=== PATIENT | female | born 1960 | race Caucasian/White ===

== ENCOUNTER → 2017-06-27 | Outpatient (CLI) | payer BC ==
--- NOTE | 2017-06-27 12:25 | XR ---
EXAMINATION TYPE: XR chest 2V DATE OF EXAM: 06/27/2017 COMPARISON: NONE HISTORY: Shortness of breath TECHNIQUE: Frontal and lateral views of the chest are obtained. FINDINGS: Scattered senescent parenchymal changes noted. Hyperinflation compatible with COPD. No evidence for infiltrate. No evidence for atelectasis. Heart size is stable. Mediastinal structures are stable and grossly unremarkable. No evidence for hilar prominence. Degenerative changes dorsal spine. IMPRESSION: 1. No evidence for acute pulmonary disease.
--- NOTE | 2017-06-27 12:27 | XR ---
EXAMINATION TYPE: XR sinus DATE OF EXAM: 06/27/2017 CLINICAL HISTORY: pain Four views of the paranasal sinuses are submitted. Paranasal sinuses demonstrate normal aeration and development. No air-fluid levels are seen. There is no evidence for mucosal thickening. Nasal sep niurka is midline. No evidence for bony destructive process. IMPRESSION: Unremarkable evaluation of the paranasal sinuses.
== END | disposition home or self-care (01) ==
LOC: RADXRMAIN 11:39
PROVIDERS: ATTEND Internal Medicine
DX: J06.9 Acute upper respiratory infection, unspecified (principal)
CPT/HCPCS: 70220; 71046

== ENCOUNTER 2019-05-04 10:03 | Emergency (ER) | payer BC ==
[2019-05-04 10:09] VITALS: BP 137/66; PULSE 86; RESP 16; TEMP 98.4
--- NOTE | 2019-05-04 10:32 | ED ---
General Adult HPI - General Chief complaint: Allergic Reaction Stated complaint: Rash all over Time Seen by Provider: 05/04/19 10:10 Source: patient, RN notes reviewed Mode of arrival: ambulatory Limitations: no limitations - History of Present Illness Initial comments: 58-year-old female with a past medical history of anemia presents to the emergency department for a chief complaint of rash. Patient states that she has had a rash for the past 3-4 days. States this started on her bilateral arms and legs and then spread to her whole body. States that she saw her primary care provider on Tuesday who thought she was probably having an ALLERGIC reaction and gave her an IM injection of steroids. Patient started a Medrol Dosepak yesterday. However today symptoms worsened and she was told to come to the emergency department for evaluation over the phone. Patient had 2 iron transfusions on April 16 and April 23. It was thought that the symptoms were likely secondary to ALLERGIC reaction from the infusions. Patient is currently seeing a load out worker for anemia and leukopenia.Patient has no other complaints at this time including shortness of breath, chest pain, abdominal pain, nausea or vomiting, headache, or visual changes. - Related Data Home Medications Medication Instructions Recorded Confirmed Ascorbic Acid [Vitamin C] 500 mg PO DAILY 04/16/19 04/16/19 Aspirin [Adult Low Dose Aspirin EC] 81 mg PO DAILY 04/16/19 04/16/19 Cholecalciferol (Vitamin D3) 1,000 PO DAILY 04/16/19 [Vitamin D3] Multivitamin [Multivitamins Adult 1 tab PO DAILY 04/16/19 04/16/19 Gummies] Previous Rx's Medication Instructions Recorded hydrOXYzine HCL [Atarax] 25 mg PO TID PRN #20 tab 05/04/19 predniSONE 50 mg PO DAILY #5 tablet 05/04/19 Allergies Allergy/AdvReac Type Severity Reaction Status Date / Time ferumoxytol Allergy Severe Rash/Hives Verified 05/04/19 10:05 Review of Systems ROS Statement: Those systems with pertinent positive or pertinent negative responses have been documented in the HPI. ROS Other: All systems not noted in ROS Statement are negative. Past Medical History Past Medical History: No Reported History Additional Past Medical History / Comment(s): anemia History of Any Multi-Drug Resistant Organisms: None Reported Past Surgical History: No Surgical Hx Reported Past Anesthesia/Blood Transfusion Reactions: No Reported Reaction Past Psychological History: Depression Smoking Status: Current every day smoker Past Alcohol Use History: None Reported Past Drug Use History: None Reported General Exam Limitations: no limitations General appearance: alert, in no apparent distress Head exam: Present: atraumatic, normocephalic, normal inspection Eye exam: Present: normal appearance, PERRL, EOMI. Absent: scleral icterus, conjunctival injection, periorbital swelling ENT exam: Present: normal exam, mucous membranes moist Neck exam: Present: normal inspection, full ROM. Absent: tenderness, meningismus, lymphadenopathy Respiratory exam: Present: normal lung sounds bilaterally. Absent: respiratory distress, wheezes, rales, rhonchi, stridor Cardiovascular Exam: Present: regular rate, normal rhythm, normal heart sounds. Absent: systolic murmur, diastolic murmur, rubs, gallop, clicks Skin exam: Present: rash (Patient has small erythematous nonraised lesions of the arms and legs. These are nonblanching. Patient also has erythematous co alescing patches of the abdomen and back. This area is blanching and appears more hive-like.) Course Vital Signs 05/04/19 10:04 Temperature 98.4 F Pulse Rate 86 Respiratory 16 Rate Blood Pressure 137/66 O2 Sat by Pulse 99 Oximetry Medical Decision Making - Medical Decision Making Patient was evaluated by Dr. Espitia as well. At this time given the raised erythematous causing patches of the abdomen back and arms this is likely hive- like in nature. Negative Nikolsky. No palmar or mucous membrane lesions. However blood work was obtained due to nonblanching lesions of the legs. CBC and CMP here unremarkable. However there is a platelet count of 94. Therefore we did discuss needing repeat blood work in the next few days from primary care to make sure these are not decreasing given the nonblanching lesions of the legs. Patient we treated as an ALLERGIC reaction. She does not have any edema of the lips tongue or throat. No shortness of breath or chest pain. She will be given IV steroids, Benadryl, and Pepcid here in the emergency department. She will stop her Medrol Dosepak and start prednisone instead. She'll be given Atarax as well. - Lab Data Result diagrams: 05/04/19 10:55 05/04/19 10:55 Lab Results 05/04/19 05/04/19 05/04/19 Range/Units 10:55 10:55 10:55 WBC 4.1 (3.8-10.6) k/uL RBC 4.08 (3.80-5.40) m/uL Hgb 11.4 (11.4-16.0) gm/dL Hct 37.0 (34.0-46.0) % MCV 90.5 (80.0-100.0) fL MCH 27.8 (25.0-35.0) pg MCHC 30.7 L (31.0-37.0) g/dL RDW 33.9 H (11.5-15.5) % Plt Count 94 L (150-450) k/uL Neutrophils % (Manual) 37 % Lymphocytes % (Manual) 57 % Eosinophils % (Manual) 6 % Neutrophils # (Manual) 1.52 (1.3-7.7) k/uL Lymphocytes # (Manual) 2.34 (1.0-4.8) k/uL Eosinophils # (Manual) 0.25 (0-0.7) k/uL Nucleated RBCs 0 (0-0) /100 WBC Manual Slide Review Performed Hypochromasia Marked Poikilocytosis Slight Anisocytosis Marked Microcytosis Moderate Macrocytosis Marked A Target Cells Present Stomatocytes Present PT 10.3 (9.0-12.0) sec INR 1.0 (<1.2) APTT 22.6 (22.0-30.0) sec Sodium 140 (137-145) mmol/L Potassium 3.9 (3.5-5.1) mmol/L Chloride 106 (98-107) mmol/L Carbon Dioxide 27 (22-30) mmol/L Anion Gap 7 mmol/L BUN 16 (7-17) mg/dL Creatinine 0.64 (0.52-1.04) mg/dL Est GFR (CKD-EPI)AfAm >90 (>60 ml/min/1.73 sqM) Est GFR (CKD-EPI)NonAf >90 (>60 ml/min/1.73 sqM) Glucose 97 (74-99) mg/dL Calcium 9.6 (8.4-10.2) mg/dL Total Bilirubin 0.4 (0.2-1.3) mg/dL AST 27 (14-36) U/L ALT 24 (9-52) U/L Alkaline Phosphatase 68 (38-126) U/L Total Protein 7.0 (6.3-8.2) g/dL Albumin 4.3 (3.5-5.0) g/dL Disposition Clinical Impression: Allergic reaction, Urticaria Disposition: HOME SELF-CARE Condition: Good Instructions (If sedation given, give patient instructions): Urticaria (ED) Additional Instructions: Please take prednisone starting tomorrow. Please take Atarax as needed for itching but do not drive while taking this. Follow up with primary care in 1-2 days. As discussed, you may need repeat blood work including platelets early next week. Return to the emergency department if you have any worsening symptoms. Prescriptions: hydrOXYzine HCL [Atarax] 25 mg PO TID PRN #20 tab PRN Reason: Itching predniSONE 50 mg PO DAILY #5 tablet Is patient prescribed a controlled substance at d/c from ED?: No Referrals: Todd Baldwin MD [Primary Care Provider] - 1-2 days Time of Disposition: 12:56
[2019-05-04 11:15] LABS: ALT 24 U/L (9-52); AST 27 U/L (14-36); African American GFR (CKD) >90 (>60 ml/min/1.73 sqM); Albumin 4.3 g/dL (3.5-5.0); Alkaline Phosphatase 68 U/L (38-126); Anion Gap 7 mmol/L; Blood Urea Nitrogen 16 mg/dL (7-17); Calcium 9.6 mg/dL (8.4-10.2); Carbon Dioxide 27 mmol/L (22-30); Chloride 106 mmol/L (98-107); Glucose 97 mg/dL (74-99); Non-African American GFR(CKD) >90 (>60 ml/min/1.73 sqM); Potassium 3.9 mmol/L (3.5-5.1); Sodium 140 mmol/L (137-145); Total Bilirubin 0.4 mg/dL (0.2-1.3)
[2019-05-04 11:28] LABS: Anisocytosis Marked; HGB 11.4 gm/dL (11.4-16.0); Hypochromasia Marked; MCH 27.8 pg (25.0-35.0); MCHC 30.7 g/dL (31.0-37.0); MCV 90.5 fL (80.0-100.0); Macrocytosis Marked; Microcytosis Moderate; Poikilocytosis Slight; RBC 4.08 m/uL (3.80-5.40); WBC 4.1 k/uL (3.8-10.6)
[2019-05-04 11:39] LABS: Platelet Count 94 k/uL (150-450); RDW 33.9 % (11.5-15.5)
[2019-05-04 11:43] LABS: Eosinophils # (M) 0.25 k/uL (0-0.7); Lymphocytes # (M) 2.34 k/uL (1.0-4.8); Neutrophils # (M) 1.52 k/uL (1.3-7.7); Neutrophils % (M) 37 %; Nucleated Red Blood Cells 0 /100 WBC (0-0); Stomatocytes Present; Total Cells Counted 100
[2019-05-04 11:44] LABS: Target Cells Present
[2019-05-04 11:50] LABS: Partial Thromboplastin Time 22.6 sec (22.0-30.0); Prothrombin Time 10.3 sec (9.0-12.0)
[2019-05-04] MEDS ORDERED: methylPREDNISolone SOD SUCCI 125 MG/2 ML VIAL IV STA (12:44)
[2019-05-04] MEDS ORDERED: diphenhydrAMINE 50 MG/ML 1 ML VIAL IVP STA (12:44)
[2019-05-04] MEDS ORDERED: FAMOTIDINE 20 MG/2 ML VIAL IV STA (12:44)
== END 2019-05-04 13:52 | disposition home or self-care (01) ==
LOC: EC 10:03
DX: L50.0 Allergic urticaria (principal); D64.9 Anemia, unspecified; D72.819 Decreased white blood cell count, unspecified; F17.200 Nicotine dependence, unspecified, uncomplicated; Z88.8 Allergy status to other drugs, medicaments and biological substances; Z79.82 Long term (current) use of aspirin
CPT/HCPCS: 36415; 80053; 85025; 85610; 85730; 96374; 96375; 99283

== ENCOUNTER → 2020-04-07 | Outpatient (CLI) | payer BC ==
--- NOTE | 2020-04-07 09:31 | XR ---
EXAMINATION TYPE: XR chest 2V DATE OF EXAM: 04/07/2020 COMPARISON: Chest x-ray June 27, 2017. HISTORY: Cough and congestion. TECHNIQUE: Frontal and lateral views of the chest are obtained. FINDINGS: There is no suspicious focal air space opacity, pleural effusion, or pneumothorax seen. T he cardiac silhouette size remains within normal limits. The osseous structures are intact. IMPRESSION: No suspicious acute pulmonary process. No significant change from prior.
--- NOTE | 2020-04-09 10:48 | MM ---
Reason for exam: screening (asymptomatic). Last mammogram was performed 5 years and 6 months ago. History: Patient is postmenopausal and is nulliparous. Physical Findings: A clinical breast exam by your physician is recommended on an annual basis and results should be correlated with mammographic findings. MG Screening Mammo w CAD Bilateral CC and MLO view(s) were taken. Prior study comparison: October 14, 2014, bilateral MG screening mammo w CAD. There are scattered fibroglandular densities. Finding: There is a oval lobulated mass in the upper outer quadrant of the right breast. No significant changes in finding since October 14, 2014. ASSESSMENT: Benign, BI-RAD 2 RECOMMENDATION: Routine screening mammogram of both breasts in 1 year.
== END | disposition home or self-care (01) ==
LOC: RADMAMWWP 08:47
PROVIDERS: ATTEND Family Medicine
DX: Z12.31 Encounter for screening mammogram for malignant neoplasm of breast (principal); J06.9 Acute upper respiratory infection, unspecified
CPT/HCPCS: 71046; 77067

== ENCOUNTER → 2020-07-04 | Outpatient (CLI) | payer BC | END | disposition home or self-care (01) | LOC: LABWHC1 16:58 | PROVIDERS: ATTEND Internal Medicine | DX: Z20.822 Contact with and (suspected) exposure to COVID-19 (principal) | CPT/HCPCS: U0003; C9803; U0005 ==

== ENCOUNTER → 2020-07-11 | Outpatient (CLI) | payer BC | END | disposition home or self-care (01) | LOC: LABWHC1 15:27 | PROVIDERS: ATTEND Internal Medicine | DX: Z20.822 Contact with and (suspected) exposure to COVID-19 (principal) | CPT/HCPCS: U0003; C9803 ==

== ENCOUNTER → 2020-08-07 | Outpatient (CLI) | payer BC ==
[2020-08-08 00:22] LABS: Anisocytosis (M) 3+; Basophils # (A) 0.01 X 10*3/uL (0.00-0.10); Basophils % (A) 0.4 %; Eosinophils # (A) 0.23 X 10*3/uL (0.04-0.35); Eosinophils % (A) 9.4 %; HCT 22.7 % (37.2-46.3); HGB 5.8 g/dL (12.0-15.0); Hypochromasia (M) 3+; Lymphocytes # (A) 1.45 X 10*3/uL (0.90-5.00); Lymphocytes % (A) 59.4 %; MCH 18.8 pg (27.0-32.0); MCHC 25.6 g/dL (32.0-37.0); MCV 73.5 fL (80.0-97.0); Microcytosis (M) 3+; Monocytes # (A) 0.11 X 10*3/uL (0.20-1.00); Monocytes % (A) 4.5 %; Neutrophils # (A) 0.62 X 10*3/uL (1.80-7.70); Neutrophils % (A) 25.5 %; Platelet Count 117 X 10*3/uL (140-440); RBC 3.09 X 10*6/uL (4.10-5.20); RDW 26.7 % (11.5-14.5); WBC 2.44 X 10*3/uL (4.50-10.00)
[2020-08-08 01:55] LABS: Erythrocyte Sedimentation Rate 35 mm/Hr (0-30)
[2020-08-08 10:01] LABS: % Iron Saturation 8.26 (12.00-45.00); African American GFR (CKD) 121.1 (60.0-200.0); Albumin 4.4 g/dL (3.80-4.90); Albumin/Globulin Ratio 2.44 (1.60-3.17); Anion Gap 9.7 mmol/L (4.00-12.00); Calcium 9.3 mg/dL (8.7-10.3); Carbon Dioxide 22.3 mmol/L (21.6-31.8); Globulin 1.8 g/dL (1.6-3.3); Non-African American GFR(CKD) 104.5 (60.0-200.0); Potassium 4.2 mmol/L (3.5-5.5); Total Bilirubin 0.4 mg/dL (0.2-1.2); Total Protein 6.2 g/dL (6.2-8.2)
[2020-08-08 10:08] LABS: T4, Free (Free Thyroxine) 1.1 ng/dL (0.80-1.80)
[2020-08-08 10:36] LABS: Ferritin 5.3 ng/mL (10.0-291.0)
== END | disposition home or self-care (01) ==
LOC: LABWHC1 16:10
PROVIDERS: ATTEND Internal Medicine
DX: D64.9 Anemia, unspecified (principal); R06.02 Shortness of breath; R00.0 Tachycardia, unspecified
CPT/HCPCS: 36415; 80053; 82607; 82728; 83540; 83550; 84439; 84443; 85025; 85379; 85652

== ENCOUNTER 2020-08-08 14:30 | Inpatient (IN) | payer BC ==
[2020-08-08 15:46] LABS: INR 0.9 (<1.2); Prothrombin Time 10.2 sec (9.0-12.0)
[2020-08-08 15:50] LABS: Anisocytosis Marked; Basophils % (A) 1 %; Eosinophils # (A) 0.2 k/uL (0-0.7); Eosinophils % (A) 11 %; Hypochromasia Marked; Lymphocytes # (A) 1.1 k/uL (1.0-4.8); Lymphocytes % (A) 57 %; MCH 19.3 pg (25.0-35.0); MCHC 27.3 g/dL (31.0-37.0); MCV 70.6 fL (80.0-100.0); Mean Platelet Volume 8.6; Microcytosis Marked; Monocytes % (A) 1 %; Neutrophils # (A) 0.5 k/uL (1.3-7.7); Neutrophils % (A) 27 %; Platelet Count 110 k/uL (150-450); Poikilocytosis Marked; RBC 3.26 m/uL (3.80-5.40); RDW 24.8 % (11.5-15.5); WBC 1.9 k/uL (3.8-10.6)
[2020-08-08 15:55] LABS: Partial Thromboplastin Time 20.1 sec (22.0-30.0)
[2020-08-08 15:57] LABS: HGB 6.3 gm/dL (11.4-16.0)
[2020-08-08 16:03] LABS: ALT 12 U/L (4-34); AST 21 U/L (14-36); African American GFR (CKD) >90 (>60 ml/min/1.73 sqM); Albumin 4.1 g/dL (3.5-5.0); Alkaline Phosphatase 57 U/L (38-126); Anion Gap 9 mmol/L; Blood Urea Nitrogen 10 mg/dL (7-17); Calcium 9.1 mg/dL (8.4-10.2); Carbon Dioxide 23 mmol/L (22-30); Chloride 102 mmol/L (98-107); Glucose 108 mg/dL (74-99); Non-African American GFR(CKD) >90 (>60 ml/min/1.73 sqM); Sodium 134 mmol/L (137-145); Total Bilirubin 0.4 mg/dL (0.2-1.3); Total Protein 6.7 g/dL (6.3-8.2)
--- NOTE | 2020-08-08 16:08 | ED ---
General Adult HPI - General Chief complaint: Recheck/Abnormal Lab/Rx Stated complaint: abnormal labs Time Seen by Provider: 08/08/20 14:54 Source: patient, RN notes reviewed Mode of arrival: wheelchair Limitations: no limitations - History of Present Illness Initial comments: 60-year-old female sent emergency Department chief complaint of abnormal labs, anemia. Patient states that she's been extremely fatigued, short of breath daily. Patient lab work done yesterday which showed hemoglobin of 5.8. Patient does admit that she's had an anemia in the past. Patient states that she was started with iron infusion but states that she reaction and stopped. Patient denies any melena, hematochezia. Patient denies any weapons of abdominal pain she states she's felt short of breath and very tired even after she sleeps. Patient denies any blood thinners. - Related Data Home Medications Medication Instructions Recorded Confirmed Ascorbic Acid [Vitamin C] 500 mg PO DAILY 04/16/19 04/16/19 Aspirin [Adult Low Dose Aspirin EC] 81 mg PO DAILY 04/16/19 04/16/19 Cholecalciferol (Vitamin D3) 1,000 PO DAILY 04/16/19 [Vitamin D3] Multivitamin [Multivitamins Adult 1 tab PO DAILY 04/16/19 04/16/19 Gummies] Previous Rx's Medication Instructions Recorded hydrOXYzine HCL [Atarax] 25 mg PO TID PRN #20 tab 05/04/19 predniSONE 50 mg PO DAILY #5 tablet 05/04/19 Allergies Allergy/AdvReac Type Severity Reaction Status Date / Time ferumoxytol Allergy Severe Rash/Hives Verified 08/08/20 14:51 Review of Systems ROS Statement: Those systems with pertinent positive or pertinent negative responses have been documented in the HPI. ROS Other: All systems not noted in ROS Statement are negative. Past Medical History Past Medical History: No Reported History Additional Past Medical History / Comment(s): anemia History of Any Multi-Drug Resistant Organisms: None Reported Past Surgical History: No Surgical Hx Reported Past Anesthesia/Blood Transfusion Reactions: No Reported Reaction Past Psychological History: Depression Smoking Status: Current every day smoker Past Alcohol Use History: None Reported Past Drug Use History: None Reported General Exam Limitations: no limitations General appearance: alert, in no apparent distress Head exam: Present: atraumatic, normocephalic, normal inspection Eye exam: Present: PERRL, EOMI. Absent: normal appearance (Pale), scleral icterus, conjunctival injection, periorbital swelling ENT exam: Present: normal exam, normal oropharynx, mucous membranes moist, TM's normal bilaterally Neck exam: Present: normal inspection, full ROM. Absent: tenderness, meningismus, lymphadenopathy Respiratory exam: Present: normal lung sounds bilaterally. Absent: respiratory distress, wheezes, rales, rhonchi, stridor Cardiovascular Exam: Present: normal rhythm, normal heart sounds. Absent: systolic murmur, diastolic murmur, rubs, gallop, clicks GI/Abdominal exam: Present: soft, normal bowel sounds. Absent: distended, tenderness, guarding, rebound, rigid Rectal exam: Present: normal inspection, normal rectal tone, other (Rectal exam performed with RN, minimal stool in the vault) Skin exam: Present: warm, dry, intact, normal color. Absent: rash Course Vital Signs 08/08/20 14:47 Temperature 98.6 F Pulse Rate 116 H Respiratory 22 Rate Blood Pressure 111/61 O2 Sat by Pulse 99 Oximetry EKG Findings - EKG Comments: EKG Findings:: EKG performed at 14:59 sinus tachycardia rate of 112. WA 138 QRS 78 QT/QTC 318/434 Medical Decision Making - Medical Decision Making 60-year-old female presents emergency from for shortness breath weakness anemia. Hemoglobin 6.3. Patient has microcytic anemia may be chronic in nature. Patient will be admitted for further workup including hematology Patient was given 2 units of blood. - Lab Data Result diagrams: 08/08/20 15:10 08/08/20 15:10 Lab Results 08/08/20 08/08/20 08/08/20 Range/Units 15:02 15:10 15:10 WBC 1.9 L (3.8-10.6) k/uL RBC 3.26 L (3.80-5.40) m/uL Hgb 6.3 L* (11.4-16.0) gm/dL Hct 23.0 L (34.0-46.0) % MCV 70.6 L (80.0-100.0) fL MCH 19.3 L (25.0-35.0) pg MCHC 27.3 L (31.0-37.0) g/dL RDW 24.8 H (11.5-15.5) % Plt Count 110 L (150-450) k/uL MPV 8.6 Neutrophils % 27 % Lymphocytes % 57 % Monocytes % 1 % Eosinophils % 11 % Basophils % 1 % Neutrophils # 0.5 L (1.3-7.7) k/uL Lymphocytes # 1.1 (1.0-4.8) k/uL Monocytes # 0.0 (0-1.0) k/uL Eosinophils # 0.2 (0-0.7) k/uL Basophils # 0.0 (0-0.2) k/uL Hypochromasia Marked Poikilocytosis Marked Anisocytosis Marked Microcytosis Marked PT 10.2 (9.0-12.0) sec INR 0.9 (<1.2) APTT 20.1 L (22.0-30.0) sec Sodium (137-145) mmol/L Potassium (3.5-5.1) mmol/L Chloride (98-107) mmol/L Carbon Dioxide (22-30) mmol/L Anion Gap mmol/L BUN (7-17) mg/dL Creatinine (0.52-1.04) mg/dL Est GFR (CKD-EPI)AfAm (>60 ml/min/1.73 sqM) Est GFR (CKD-EPI)NonAf (>60 ml/min/1.73 sqM) Glucose (74-99) mg/dL Calcium (8.4-10.2) mg/dL Total Bilirubin (0.2-1.3) mg/dL AST (14-36) U/L ALT (4-34) U/L Alkaline Phosphatase (38-126) U/L Troponin I (0.000-0.034) ng/mL Total Protein (6.3-8.2) g/dL Albumin (3.5-5.0) g/dL Blood Type Blood Type Confirm A Positive Blood Type Recheck Bld Type Recheck Status Antibody Screen Crossmatch Spec Expiration Date 08/08/20 08/08/20 08/08/20 Range/Units 15:10 15:10 15:10 WBC (3.8-10.6) k/uL RBC (3.80-5.40) m/uL Hgb (11.4-16.0) gm/dL Hct (34.0-46.0) % MCV (80.0-100.0) fL MCH (25.0-35.0) pg MCHC (31.0-37.0) g/dL RDW (11.5-15.5) % Plt Count (150-450) k/uL MPV Neutrophils % % Lymphocytes % % Monocytes % % Eosinophils % % Basophils % % Neutrophils # (1.3-7.7) k/uL Lymphocytes # (1.0-4.8) k/uL Monocytes # (0-1.0) k/uL Eosinophils # (0-0.7) k/uL Basophils # (0-0.2) k/uL Hypochromasia Poikilocytosis Anisocytosis Microcytosis PT (9.0-12.0) sec INR (<1.2) APTT (22.0-30.0) sec Sodium 134 L (137-145) mmol/L Potassium 4.0 (3.5-5.1) mmol/L Chloride 102 (98-107) mmol/L Carbon Dioxide 23 (22-30) mmol/L Anion Gap 9 mmol/L BUN 10 (7-17) mg/dL Creatinine 0.45 L (0.52-1.04) mg/dL Est GFR (CKD-EPI)AfAm >90 (>60 ml/min/1.73 sqM) Est GFR (CKD-EPI)NonAf >90 (>60 ml/min/1.73 sqM) Glucose 108 H (74-99) mg/dL Calcium 9.1 (8.4-10.2) mg/dL Total Bilirubin 0.4 (0.2-1.3) mg/dL AST 21 (14-36) U/L ALT 12 (4-34) U/L Alkaline Phosphatase 57 (38-126) U/L Troponin I <0.012 (0.000-0.034) ng/mL Total Protein 6.7 (6.3-8.2) g/dL Albumin 4.1 (3.5-5.0) g/dL Blood Type A Positive Blood Type Confirm Blood Type Recheck No Previous Record Bld Type Recheck Status CABO Indicated Antibody Screen NEGATIVE Crossmatch See Detail Spec Expiration Date 08/11/20202309 Critical Care Time Critical Care Time: Yes Total Critical Care Time: 35 Critical Care Time: Total 35 minutes of critical care time use initially evaluated you press work history, ordering of labs EKG. Patient's found to be anemic. 2 units of blood were ordered. Patient's case discussed with the admitting physician. Consult to hematology Patient will have repeat H&H. Disposition Clinical Impression: Thrombocytopenia, Leukopenia, Anemia Disposition: ADMITTED IP TO THIS [facility] Condition: Serious Referrals: Caren Watson NPC [Primary Care Provider] - 1-2 days
[2020-08-08 16:47] LABS: Reticulocyte % 4.9 % (0.5-2.0)
[2020-08-08] MEDS ORDERED: ONDANSETRON 4 MG/2 ML VIAL IVP PRN (17:46)
[2020-08-08] MEDS ORDERED: NALOXONE 0.4 MG/ML 1 ML VIAL IV PRN (17:46)
[2020-08-08] MEDS ORDERED: ACETAMINOPHEN TAB 325 MG TAB PO PRN (17:46)
[2020-08-08] MEDS ORDERED: HYDROcodone/APAP 5-325MG 1 EACH TAB PO PRN (18:05)
[2020-08-08] MEDS ORDERED: MELATONIN 3 MG TABLET PO PRN (18:05)
[2020-08-08] MEDS ORDERED: ALPRAZolam 0.25 MG TAB PO PRN (18:05)
[2020-08-08] MEDS ORDERED: NICOTINE POLACRILEX 2 MG GUM BUCCAL PRN (18:05)
[2020-08-08] MEDS ORDERED: bisacodyL 5 MG TABLET.DR PO PRN (18:05)
[2020-08-08] MEDS ORDERED: ALBUTEROL NEBULIZED 2.5 MG/3 ML INHALATION PRN (18:25)
--- NOTE | 2020-08-08 18:34 | P.HPIM ---
History of Present Illness H&P Date: 08/08/20 Chief Complaint: fatigue Patient is a 60-year-old female with a history of prior iron deficiency anemia, tobacco abuse, who presented to the emergency department at the direction of Dr. Ayala. She had blood work completed on 08/07 which resulted today and showed a hemoglobin of 5.8. On arrival to the ER she was tachycardic with heart rate of 116. Laboratory analysis showed pancytopenia with a white blood cell count of 1.9, hemoglobin 6.3, platelets of 110. Her sodium level was 134, glucose 108, troponin was negative. Fecal occult blood negative. One unit of packed red blood cells was ordered. Arrangements were made for admission. Of note on the day prior she completed a TSH which was normal at 0.910, B12 225, Iron 36, ferritin 5.3, percent saturation 6.2 Patient seen and examined at bedside. Progressive shortness of breath since Jun 2019 and especially since last summer, works at [employer] and no longer able to get form car to the front door. Worsening exercise tolerance. Light headed, unable to catch breath and no energy on her last day of work which was Jul 02. SOB worse with exertion, inconsistent wheezing when trying to catch her breath, + cough but chronic and currently smoking 1/4-1/2 PPD down from 1 PPD a year ago. No nausea, no vomiting, no diarrhea. No chest pain. No blood in stools, no melena. no weight loss, Gained 5 pounds, no change in appetite. No night sweats, no fevers at night, no chills. No fainting or passing out. Possible increased hair loss. DX of anemia and was seeing Dr. Pathak. Had to get IV iron transfusion at that time Apr 2019. Had reaction to the second infusion with diffuse hives. She never saw Dr. Pathak again after that reaction. Has not been having consistent blood draws. 08/07/20-Had PFT done with Jamie and COPD gold stage 3, only able to walk around office 3 times due to high heart rate. Told she was anemic and needed to have blood work completed. 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 Temp 99 on second visit and had a repeat COVID done a CXR ordered and pna was present (07/11/20). Also placed on zithromax. Review of Systems Pertinent positives and negatives as discussed in HPI, a complete review of systems was performed and all other systems are negative. Past Medical History Additional Past Medical History / Comment(s): anemia History of Any Multi-Drug Resistant Organisms: None Reported Additional Past Surgical History / Comment(s): tooth extraction Past Anesthesia/Blood Transfusion Reactions: No Reported Reaction Past Psychological History: Depression Smoking Status: Current every day smoker Past Alcohol Use History: None Reported Past Drug Use History: Marijuana - Past Family History Father Additional Family Medical History / Comment(s): unknown, adopted at Mother Additional Family Medical History / Comment(s): unknown, adopted at Medications and Allergies Home Medications Medication Instructions Recorded Confirmed Type Ascorbic Acid [Vitamin C] 500 mg PO DAILY 04/16/19 04/16/19 History Albuterol Inhaler [Ventolin Hfa 2 puff INHALATION RT-Q4H PRN 08/08/20 08/08/20 History Inhaler] Ascorbic Acid/Elderberry Fruit 1 tab PO DAILY 08/08/20 08/08/20 History [Elderberry-Vit C 50-100 mg w] Cholecalciferol [Vitamin D3 (25 25 mcg PO DAILY 08/08/20 08/08/20 History Mcg = 1000 Iu)] Allergies Allergy/AdvReac Type Severity Reaction Status Date / Time ferumoxytol Allergy Severe Rash/Hives Verified 08/08/20 16:59 Physical Exam Osteopathic Statement: *. No significant issues noted on an osteopathic structural exam other than those noted in the History and Physical/Consult. Vitals: Vital Signs Temp Pulse Resp BP Pulse Ox 08/08/20 14:47 98.6 F 116 H 22 111/61 99 Intake and Output 08/08/20 08/08/20 08/08/20 06:59 14:59 22:59 Other: Weight 56.699 kg General: Ill appearing, no distress, appears at stated age Derm: + Pallor, loss of pulmonary increase erythema on bilateral hands, warm, dry Head: atraumatic, normocephalic, symmetric Eyes: EOMI, no lid lag, anicteric sclera, pupils equal round reactive to light, + conjunctival pallor ENT: Nose and ears atraumatic, no thrush, no pharyngeal erythema Neck: No thyromegaly, no cervical lymphadenopathy, trachea midline, supple Mouth: no lip lesion, mucus membranes moist Cardiovascular: S1S2 reg, no murmur, positive posterior tibial pulse bilateral, no edema, capillary refill less than 2 seconds Lungs: clear to ascultation bilateral, no ronchi, no rales, no wheeze, no accessory muscle use Abdominal: soft, nontender to palpation, no guarding, no appreciable organomegaly, normal bowel sounds Ext: no gross muscle atrophy, muscle strength muscle strength 5 out of 5 in all 4 extremities, no contractures Neuro: CN II-XI grossly intact, light touch intact all 4 extremities, finger to nose within normal limits, Psych: Alert, oriented, appropriate affect Results CBC & Chem 7: 08/08/20 15:10 08/08/20 15:10 Labs: Abnormal Lab Results - Last 24 Hours (Table) 08/08/20 08/08/20 08/08/20 Range/Units 15:10 15:10 15:10 WBC 1.9 L (3.8-10.6) k/uL RBC 3.26 L (3.80-5.40) m/uL Hgb 6.3 L* (11.4-16.0) gm/dL Hct 23.0 L (34.0-46.0) % MCV 70.6 L (80.0-100.0) fL MCH 19.3 L (25.0-35.0) pg MCHC 27.3 L (31.0-37.0) g/dL RDW 24.8 H (11.5-15.5) % Plt Count 110 L (150-450) k/uL Neutrophils # 0.5 L (1.3-7.7) k/uL Retic Count (0.5-2.0) % APTT 20.1 L (22.0-30.0) sec Sodium 134 L (137-145) mmol/L Creatinine 0.45 L (0.52-1.04) mg/dL Glucose 108 H (74-99) mg/dL Crossmatch 08/08/20 08/08/20 Range/Units 15:10 15:10 WBC (3.8-10.6) k/uL RBC (3.80-5.40) m/uL Hgb (11.4-16.0) gm/dL Hct (34.0-46.0) % MCV (80.0-100.0) fL MCH (25.0-35.0) pg MCHC (31.0-37.0) g/dL RDW (11.5-15.5) % Plt Count (150-450) k/uL Neutrophils # (1.3-7.7) k/uL Retic Count 4.9 H (0.5-2.0) % APTT (22.0-30.0) sec Sodium (137-145) mmol/L Creatinine (0.52-1.04) mg/dL Glucose (74-99) mg/dL Crossmatch See Detail Thrombosis Risk Factor Assmnt - DVT/VTE Prophylaxis DVT/VTE Prophylaxis: Pharmacologic Prophylaxis ordered Assessment and Plan Assessment: Pancytopenia with leukopenia (neutropenia), anemia, and thrombocytopenia -Symptomatic anemia -Iron studies from 08/07/20 and demonstrated severe iron deficiency anemia with ferritin 5.3, FE 36, TIBC 436, and % sat 8.6 - B12 deficiency08/07/20 225 - SPEP done 01/10/19 with small peak early in the gamma region- may be artifact but immunofixation may be useful. - Retic count 4.9%, calculated reticulocyte index less than 2 consistent with hypoproliferative anemia - Consult Heme/onc - await LDH - Repeat CBC in AM with diff - TSH 08/07/20 0.9 - Consider repeat SPEP Tobacco abuse - cessation - nicotine replacement COPD stage 3, without exacerbation - follow-up with Dr. Ayala in office - prn bronchodilators The patient is admitted with an anticipated greater than 2 midnight stay for evaluation of Symptomatic anemia . Surrogate decision-maker: none CODE STATUS:full DVT prophylaxis: SCDs Anticipated discharge date: 2-[address]: home
[2020-08-08] MEDS: NICOTINE 14MG/24HR PATCH TRANSDERM SCH (20:17)
[2020-08-09 07:39] LABS: Anisocytosis Moderate; HCT 28.2 % (34.0-46.0); HGB 7.6 gm/dL (11.4-16.0); Hypochromasia Marked; MCH 20.4 pg (25.0-35.0); MCV 75.5 fL (80.0-100.0); Mean Platelet Volume 9.1; Microcytosis Marked; Platelet Count 108 k/uL (150-450); Poikilocytosis Marked; RBC 3.74 m/uL (3.80-5.40); RDW 23.2 % (11.5-15.5); WBC 1.9 k/uL (3.8-10.6)
[2020-08-09 07:40] LABS: African American GFR (CKD) >90 (>60 ml/min/1.73 sqM); Anion Gap 3 mmol/L; Blood Urea Nitrogen 11 mg/dL (7-17); Calcium 8.8 mg/dL (8.4-10.2); Carbon Dioxide 26 mmol/L (22-30); Chloride 108 mmol/L (98-107); Glucose 87 mg/dL (74-99); Magnesium 2.1 mg/dL (1.6-2.3); Non-African American GFR(CKD) >90 (>60 ml/min/1.73 sqM); Potassium 4.1 mmol/L (3.5-5.1); Sodium 137 mmol/L (137-145)
[2020-08-09 08:02] LABS: Uric Acid 2.6 mg/dL (3.7-7.4)
[2020-08-09] MEDS: NICOTINE 14MG/24HR PATCH TRANSDERM SCH (09:18)
[2020-08-09] MEDS: CYANOCOBALAMIN 1,000 MCG/ML 1 ML VIAL IM SCH (09:18)
--- NOTE | 2020-08-09 10:34 | P.PN ---
Subjective Progress Note Date: 08/09/20 Principal diagnosis: dyspnea Patient is a 60-year-old female with a history of prior iron deficiency anemia, tobacco abuse, and COPD who presented to the emergency department at the direction of Dr. Ayala. She had blood work completed on 08/07 which resulted today and showed a hemoglobin of 5.8. On arrival to the ER she was tachycardic with heart rate of 116. Laboratory analysis showed pancytopenia with a white blood cell count of 1.9, hemoglobin 6.3, platelets of 110. Her sodium level was 134, glucose 108, troponin was negative. Fecal occult blood negative. One unit of packed red blood cells was ordered. Arrangements were made for admission. Of note on the day prior she completed a TSH which was normal at 0.910, B12 225, Iron 36, ferritin 5.3, percent saturation 6.2. She was started on B12. Her HgB was 7.6 on recheck. Retic index less and 2. LDH elevated and uric acid low. Patient seen and examined at bedside. She reports even after her unit of blood she is still feeling winded today. No chest pain. No nausea or vomiting. General: non toxic, no distress, appears at stated age Derm: + Pale, warm, dry Head: atraumatic, normocephalic, symmetric Eyes: EOMI, no lid lag, anicteric sclera, conjunctival pallor Mouth: no lip lesion, mucus membranes moist Cardiovascular: S1S2 reg, no murmur, positive posterior tibial pulse bilateral, Lungs: CTA bilateral, no rhonchi, no rales , no accessory muscle use Abdominal: soft, nontender to palpation, no guarding, no appreciable organomegaly Ext: no gross muscle atrophy, no edema, no contractures Neuro: CN II-XI grossly intact, no focal neuro deficits Psych: Alert, oriented, appropriate affect Pancytopenia with leukopenia (neutropenia), anemia, and thrombocytopenia - s/p 1 unit pRBC -Symptomatic anemia -Iron studies from 08/07/20 and demonstrated severe iron deficiency anemia with ferritin 5.3, FE 36, TIBC 436, and % sat 8.6 - B12 deficiency08/07/20 225 - SPEP done 01/10/19 with small peak early in the gamma region- may be artifact but immunofixation may be useful. - Retic count 4.9%, calculated reticulocyte index less than 2 consistent with hypoproliferative anemia - Consult Heme/onc - LDH elevated and low uric acid - Repeat CBC in AM with diff - TSH 08/07/20 0.9 - Consider repeat SPEP - discussed that patient will need further work-up as outpatient regarding reason for iron deficiency Dyspnea - no improvement with 1 unit pRBC - Check echo Tobacco abuse - cessation - nicotine replacement COPD stage 3, without exacerbation - follow-up with Dr. Ayala in office - prn bronchodilators CODE STATUS:full DVT prophylaxis: SCDs Anticipated discharge date: 2-[address]: home Objective - Vital Signs Vital signs: Vital Signs Temp 98.6 F 08/09/20 02:30 Pulse 106 H 08/09/20 08:30 Resp 17 08/09/20 08:30 BP 114/64 08/09/20 08:30 Pulse Ox 97 08/09/20 08:30 Intake & Output 08/08/20 08/09/20 08/09/20 18:59 06:59 18:59 Intake Total 0 610 720 Balance 0 610 720 Weight 56.699 kg 56.699 kg Intake: Oral 720 Blood Product 0 310 Rc As-1 Unit 0 310 [id number] Other 300 Rc As-1 Unit 300 [id number] Other: # Voids 1 1 - Labs CBC & Chem 7: 08/09/20 06:14 08/09/20 06:14 Labs: Abnormal Lab Results - Last 24 Hours (Table) 08/08/20 08/08/20 08/08/20 Range/Units 15:10 15:10 15:10 WBC 1.9 L (3.8-10.6) k/uL RBC 3.26 L (3.80-5.40) m/uL Hgb 6.3 L* (11.4-16.0) gm/dL Hct 23.0 L (34.0-46.0) % MCV 70.6 L (80.0-100.0) fL MCH 19.3 L (25.0-35.0) pg MCHC 27.3 L (31.0-37.0) g/dL RDW 24.8 H (11.5-15.5) % Plt Count 110 L (150-450) k/uL Neutrophils # 0.5 L (1.3-7.7) k/uL Retic Count (0.5-2.0) % APTT 20.1 L (22.0-30.0) sec Sodium 134 L (137-145) mmol/L Chloride (98-107) mmol/L Creatinine 0.45 L (0.52-1.04) mg/dL Glucose 108 H (74-99) mg/dL Uric Acid (3.7-7.4) mg/dL Lactate Dehydrogenase (313-618) U/L Crossmatch 08/08/20 08/08/20 08/08/20 Range/Units 15:10 15:10 15:10 WBC (3.8-10.6) k/uL RBC (3.80-5.40) m/uL Hgb (11.4-16.0) gm/dL Hct (34.0-46.0) % MCV (80.0-100.0) fL MCH (25.0-35.0) pg MCHC (31.0-37.0) g/dL RDW (11.5-15.5) % Plt Count (150-450) k/uL Neutrophils # (1.3-7.7) k/uL Retic Count 4.9 H (0.5-2.0) % APTT (22.0-30.0) sec Sodium (137-145) mmol/L Chloride (98-107) mmol/L Creatinine (0.52-1.04) mg/dL Glucose (74-99) mg/dL Uric Acid 2.6 L (3.7-7.4) mg/dL Lactate Dehydrogenase 650 H (313-618) U/L Crossmatch See Detail 08/09/20 08/09/20 Range/Units 06:14 06:14 WBC 1.9 L (3.8-10.6) k/uL RBC 3.74 L (3.80-5.40) m/uL Hgb 7.6 L (11.4-16.0) gm/dL Hct 28.2 L (34.0-46.0) % MCV 75.5 L (80.0-100.0) fL MCH 20.4 L (25.0-35.0) pg MCHC 27.0 L (31.0-37.0) g/dL RDW 23.2 H (11.5-15.5) % Plt Count 108 L (150-450) k/uL Neutrophils # (1.3-7.7) k/uL Retic Count (0.5-2.0) % APTT (22.0-30.0) sec Sodium (137-145) mmol/L Chloride 108 H (98-107) mmol/L Creatinine (0.52-1.04) mg/dL Glucose (74-99) mg/dL Uric Acid (3.7-7.4) mg/dL Lactate Dehydrogenase (313-618) U/L Crossmatch
[2020-08-09 11:03] LABS: Neutrophils % (M) 21 %
[2020-08-09 11:04] LABS: Band Neutrophils % 1 %; Eosinophils # (M) 0.11 k/uL (0-0.7); Lymphocytes # (M) 1.31 k/uL (1.0-4.8); Monocytes # (M) 0.06 k/uL (0-1.0)
[2020-08-09 11:07] LABS: Nucleated Red Blood Cells 1 /100 WBC (0-0); Total Cells Counted 100
[2020-08-09 11:13] LABS: RBC Fragments Present
[2020-08-09 15:18] LABS: Reticulocyte % 3.3 % (0.5-2.0)
--- NOTE | 2020-08-09 18:00 | ECHOF ---
Referral Reason:shortness of breath, today please MEASUREMENTS -------- HEIGHT: 157.5 cm WEIGHT: 56.7 kg BP: RVIDd: 2.0 cm (< 3.3) IVSd: 1.0 cm (0.6 - 1.1) LVIDd: 3.9 cm (3.9 - 5.3) LVPWd: 1.1 cm (0.6 - 1.1) IVSs: 1.8 cm LVIDs: 1.5 cm LVPWs: 1.3 cm Ao Diam: 3.1 cm (2.0 - 3.7) AV Cusp: 1.9 cm (1.5 - 2.6) LA Diam: 3.0 cm (2.7 - 3.8) MV EXCURSION: 20.499 mm (> 18.000) MV EF SLOPE: 85 mm/s (70 - 150) EPSS: 0.4 cm MV E Dani: 0.61 m/s MV DecT: 174 ms MV A Dani: 0.56 m/s MV E/A Ratio: 1.10 RAP: 5.00 mmHg RVSP: 9.86 mmHg FINDINGS -------- This was a technically difficult study with suboptimal views. The left ventricular size is normal. Left ventricular wall thickness is normal. Overall left vent ricular systolic function is low-normal with, an EF between 50 - 55 %. The right ventricle is normal in size. The left atrial size is normal. The right atrial size is normal. 5.0mg of Lumason was utilized for enhancement of images The aortic valve is trileaflet and appears structurally normal. The mitral valve is normal. There is trace mitral regurgitation. The tricuspid valve appears structurally normal. Trace tricuspid regurgitation present. Right bowen tricular systolic pressure is normal at < 35 mmHg. There is no pulmonic regurgitation present. The aortic root size is normal. Normal inferior vena cava with normal inspiratory collapse consistent with estimated right atrial pre ssure of 5 mmHg. There is no pericardial effusion. CONCLUSIONS -------- 1. The left ventricular size is normal. 2. Left ventricular wall thickness is normal. 3. Overall left ventricular systolic function is low-normal with, an EF between 50 - 55 %. 4. There is trace mitral regurgitation. 5. Trace tricuspid regurgitation present. 6. There is no pericardial effusion. POLL WATCHER: Sumi Hernández RDCS
[2020-08-09 19:51] VITALS: RESP 18
--- NOTE | 2020-08-09 20:14 | P.CONS ---
History of Present Illness - Reason for Consult Consult date: 08/09/20 Severe microcytic anemia, pancytopenia - History of Present Illness The patient is 60-year-old white female, previously seen by Dr. Pathak, in late 2018. She had been referred for pancytopenia with borderline hemoglobin, platelets are borderline normal to 1:30/140, and W BC in the 3-4000 range, with ANC specifically low, in the 900-1000 range. The patient's initial lab work was essentially negative, including testing for paraproteinemia. She had given a history of heavy alcohol use, of about 12 beers a day, but she had quit about 10 years prior. It is felt that this pancytopenia likely represented chronic bone marrow decompensation due to the same. During her evaluation the patient did develop iron deficiency anemia for which she received IV iron in 03/24. She did not follow up in the office subsequently. Patient had had a CT scan done at [facility] in 2016 that did not mention any specific abnormality in the liver. MRI of the liver was being planned by our office, but the patient, as stated did not follow up. The patient was now admitted with markedly low hemoglobin in the 5-6 range. On admission she was also complaining of progressive fatigue, and some palpitations and was found to be tachycardic. Current CBC showed hemoglobin of 6.3, with MCV the 70 range. W BC was 1.9 and platelets in the low 100 range. Consult was therefore placed for further evaluation and recommendations. Pt does report some black stools off and on. She denies any major change in bowel habits, difficulty swallowing or abdominal pain however. Review of Systems Constitutional: Reports fatigue, Reports weakness Eyes: denies blurred vision, denies pain Ears: deny: decreased hearing, ear discharge, earache, tinnitus Ears, nose, mouth and throat: Denies headache, Denies sore throat Cardiovascular: Reports dyspnea on exertion, Reports lightheadedness, Reports palpitations Respiratory: Reports dyspnea Gastrointestinal: Denies abdominal pain, Denies diarrhea, Denies nausea, Denies vomiting Genitourinary: Denies dysuria, Denies hematuria Menstruation: Reports postmenopausal Musculoskeletal: Reports muscle weakness Integumentary: Denies pruritus, Denies rash Neurological: Reports weakness Psychiatric: Reports as per HPI Endocrine: Denies fatigue, Denies weight change Hematologic/Lymphatic: Reports as per HPI Past Medical History Past Medical History: No Reported History Additional Past Medical History / Comment(s): anemia History of Any Multi-Drug Resistant Organisms: None Reported Past Surgical History: No Surgical Hx Reported Additional Past Surgical History / Comment(s): tooth extraction Past Anesthesia/Blood Transfusion Reactions: No Reported Reaction Past Psychological History: Depression Smoking Status: Current every day smoker Past Alcohol Use History: None Reported Past Drug Use History: Marijuana Additional Drug Use History / Comment(s): smokes 5-6 cigs/day - Past Family History Father History Unknown: Yes Additional Family Medical History / Comment(s): unknown, adopted at Mother History Unknown: Yes Additional Family Medical History / Comment(s): unknown, adopted at Medications and Allergies Home Medications Medication Instructions Recorded Confirmed Type Ascorbic Acid [Vitamin C] 500 mg PO DAILY 04/16/19 08/08/20 History Albuterol Inhaler [Ventolin Hfa 2 puff INHALATION RT-Q4H PRN 08/08/20 08/08/20 History Inhaler] Ascorbic Acid/Elderberry Fruit 1 tab PO DAILY 08/08/20 08/08/20 History [Elderberry-Vit C 50-100 mg Chw] Cholecalciferol [Vitamin D3 (25 25 mcg PO DAILY 08/08/20 08/08/20 History Mcg = 1000 Iu)] Allergies Allergy/AdvReac Type Severity Reaction Status Date / Time ferumoxytol Allergy Severe Rash/Hives Verified 08/08/20 16:59 Physical Exam Vitals: Vital Signs Temp Pulse Pulse Resp BP BP Pulse Ox 08/09/20 08:30 106 H 17 114/64 97 08/09/20 02:30 98.6 F 110 H 22 151/70 98 08/09/20 02:00 22 08/08/20 23:37 97.6 F 85 20 125/70 96 08/08/20 21:00 98.0 F 96 20 124/80 98 08/08/20 19:41 98.9 F 106 H 15 129/77 98 08/08/20 17:53 99.0 F 105 H 18 122/75 08/08/20 17:23 98.9 F 111 H 20 135/73 08/08/20 17:13 99.4 F 108 H 20 125/74 08/08/20 17:11 99.5 F 110 H 18 125/67 08/08/20 15:00 105 H 20 08/08/20 14:47 98.6 F 116 H 22 111/61 99 Intake and Output 08/08/20 08/09/20 08/09/20 22:59 06:59 14:59 Intake Total 610 720 Balance 610 720 Intake: Oral 720 Blood Product 310 Rc As-1 Unit 310 [id number] Other 300 Rc As-1 Unit 300 [id number] Other: # Voids 1 1 Weight 56.699 kg - Constitutional General appearance: no acute distress - EENT Eyes: EOMI, PERRLA ENT: hearing grossly normal, normal oropharynx - Neck Neck: no lymphadenopathy Thyroid: bilateral: normal size - Respiratory Respiratory: bilateral: CTA - Cardiovascular Rhythm: regular Heart sounds: normal: S1, S2 - Gastrointestinal General gastrointestinal: normal bowel sounds, soft - Integumentary Integumentary: normal - Neurologic Neurologic: CNII-XII intact - Musculoskeletal Musculoskeletal: generalized weakness, strength equal bilaterally - Psychiatric Psychiatric: A&O x's 3, appropriate affect Results CBC & Chem 7: 08/09/20 06:14 08/09/20 06:14 Labs: Abnormal Lab Results - Last 24 Hours (Table) 08/08/20 08/08/20 08/08/20 Range/Units 15:10 15:10 15:10 WBC 1.9 L (3.8-10.6) k/uL RBC 3.26 L (3.80-5.40) m/uL Hgb 6.3 L* (11.4-16.0) gm/dL Hct 23.0 L (34.0-46.0) % MCV 70.6 L (80.0-100.0) fL MCH 19.3 L (25.0-35.0) pg MCHC 27.3 L (31.0-37.0) g/dL RDW 24.8 H (11.5-15.5) % Plt Count 110 L (150-450) k/uL Neutrophils # 0.5 L (1.3-7.7) k/uL Retic Count (0.5-2.0) % APTT 20.1 L (22.0-30.0) sec Sodium 134 L (137-145) mmol/L Chloride (98-107) mmol/L Creatinine 0.45 L (0.52-1.04) mg/dL Glucose 108 H (74-99) mg/dL Uric Acid (3.7-7.4) mg/dL Lactate Dehydrogenase (313-618) U/L Crossmatch 08/08/20 08/08/20 08/08/20 Range/Units 15:10 15:10 15:10 WBC (3.8-10.6) k/uL RBC (3.80-5.40) m/uL Hgb (11.4-16.0) gm/dL Hct (34.0-46.0) % MCV (80.0-100.0) fL MCH (25.0-35.0) pg MCHC (31.0-37.0) g/dL RDW (11.5-15.5) % Plt Count (150-450) k/uL Neutrophils # (1.3-7.7) k/uL Retic Count 4.9 H (0.5-2.0) % APTT (22.0-30.0) sec Sodium (137-145) mmol/L Chloride (98-107) mmol/L Creatinine (0.52-1.04) mg/dL Glucose (74-99) mg/dL Uric Acid 2.6 L (3.7-7.4) mg/dL Lactate Dehydrogenase 650 H (313-618) U/L Crossmatch See Detail 08/09/20 08/09/20 Range/Units 06:14 06:14 WBC 1.9 L (3.8-10.6) k/uL RBC 3.74 L (3.80-5.40) m/uL Hgb 7.6 L (11.4-16.0) gm/dL Hct 28.2 L (34.0-46.0) % MCV 75.5 L (80.0-100.0) fL MCH 20.4 L (25.0-35.0) pg MCHC 27.0 L (31.0-37.0) g/dL RDW 23.2 H (11.5-15.5) % Plt Count 108 L (150-450) k/uL Neutrophils # (1.3-7.7) k/uL Retic Count (0.5-2.0) % APTT (22.0-30.0) sec Sodium (137-145) mmol/L Chloride 108 H (98-107) mmol/L Creatinine (0.52-1.04) mg/dL Glucose (74-99) mg/dL Uric Acid (3.7-7.4) mg/dL Lactate Dehydrogenase (313-618) U/L Crossmatch Comments: EKG imaging reviewed Assessment and Plan (1) Anemia Narrative/Plan: The patient was previously seen in our practice in 2019 for pancytopenia. At her initial visit, anemia was borderline, and associated with elevated MCV. As noted, this was felt to be due to alcohol effect. However the patient subsequently developed microcytic anemia with evidence of iron deficiency. She received IV iron previously in 2019, but did not follow up. She had a negative cologard in late 2019. On this admission anemia is most prominent and microcytic. Therefore recurrent iron deficiency is most likely. Iron studies will be ordered. GI workup is recommended if iron deficiency is confirmed. Start iron supplementation if iron deficiency is confirmed. Continue to monitor in the meantime and transfuse to keep hemoglobin greater than 7. Add: Patient's lab just prior to admission show a low ferritin at less than 10. This is quite indicative of iron deficiency even though saturation is in the normal range. Case was discussed in detail with the admitting service. Strongly recommended the patient should have GI workup. While it is possible that she may have some hypoproliferative component at baseline, current drop appears to be due to iron deficiency. Current Visit: Yes Status: Acute Code(s): D64.9 - ANEMIA, UNSPECIFIED SNOMED Code(s): 640054726 (2) Pancytopenia Narrative/Plan: This was also previously present, and attribute it to long-term alcohol effect on the bone marrow. Leukopenia and thrombocytopenia this admission are more prominent, especially the leukopenia. Platelet count are not too different from her baseline. Pancytopenia workup will be repeated, Including imaging of the liver and spleen. A possible differential could include transient decompen sation of a chronically , mildly compromised marrow from prior alcohol use, due to additional stress of progressive iron deficiency anemia. Other causes are not ruled out. - Plt counts are well within a safe range and do not require intervention. - ANC was at 500 with no fever. Therefore at this time this can be followed with observation. Consider growth factor support if ANC remains below 1000, and patient develops any fever. - Further recommendations once workup is resulted. Current Visit: Yes Status: Acute Code(s): D61.818 - OTHER PANCYTOPENIA SNOMED Code(s): 509539462
[2020-08-09 23:13] VITALS: TEMP 98.1
[2020-08-10] MEDS ORDERED: IPRATROPIUM-ALBUTEROL 3 ML NEB INHALATION SCH (08:00)
[2020-08-10] MEDS: NICOTINE 14MG/24HR PATCH TRANSDERM SCH (08:03)
--- NOTE | 2020-08-10 08:10 | US ---
EXAMINATION TYPE: US abdomen limited DATE OF EXAM: 08/10/2020 COMPARISON: NONE CLINICAL HISTORY: Pancytopenia possible hepatosplenomegaly. EXAM MEASUREMENTS: Liver Length: 12.9 cm Gallbladder Wall: 0.2 cm CBD: 0.3 cm Right Kidney: 8.5 x 4.1 x 4.0 cm Spleen: 10.5 cm Pancreas: wnl Liver: Echotexture appears coarse Gallbladder: tiny echogenic focus, appears to be mobile. Evidence for sonographic Wall's sign: No CBD: wnl Right Kidney: No hydronephrosis or masses seen Spleen: wnl IMPRESSION: Probable gallstone, possible underlying hepatocellular disease
[2020-08-10 08:33] LABS: Anisocytosis Moderate; HGB 8.4 gm/dL (11.4-16.0); Hypochromasia Marked; MCHC 27.9 g/dL (31.0-37.0); MCV 75.2 fL (80.0-100.0); Mean Platelet Volume 8.8; Microcytosis Marked; Platelet Count 101 k/uL (150-450); Poikilocytosis Marked; RBC 3.99 m/uL (3.80-5.40); RDW 23.9 % (11.5-15.5)
[2020-08-10 08:42] LABS: ALT 11 U/L (4-34); AST 22 U/L (14-36); African American GFR (CKD) >90 (>60 ml/min/1.73 sqM); Albumin 3.9 g/dL (3.5-5.0); Alkaline Phosphatase 60 U/L (38-126); Anion Gap 6 mmol/L; Blood Urea Nitrogen 13 mg/dL (7-17); Calcium 9.1 mg/dL (8.4-10.2); Carbon Dioxide 25 mmol/L (22-30); Chloride 106 mmol/L (98-107); Glucose 89 mg/dL (74-99); Non-African American GFR(CKD) >90 (>60 ml/min/1.73 sqM); Potassium 4.3 mmol/L (3.5-5.1); Sodium 137 mmol/L (137-145); Total Bilirubin 0.5 mg/dL (0.2-1.3); Total Protein 6.4 g/dL (6.3-8.2)
[2020-08-10] MEDS: CYANOCOBALAMIN 1,000 MCG/ML 1 ML VIAL IM SCH (08:44)
[2020-08-10 08:58] VITALS: BP 125/63
[2020-08-10 09:05] VITALS: PULSE 76
[2020-08-10 10:01] LABS: Band Neutrophils % 1 %; Eosinophils # (M) 0.26 k/uL (0-0.7); Lymphocytes # (M) 1.22 k/uL (1.0-4.8); Monocytes # (M) 0.04 k/uL (0-1.0); Neutrophils % (M) 25 %; Nucleated Red Blood Cells 2 /100 WBC (0-0); Total Cells Counted 200
[2020-08-10 10:02] LABS: Polychromasia Present
[2020-08-10 10:07] LABS: RBC Fragments Present; Tear Drop Cells Present
[2020-08-10 10:25] LABS: % Iron Saturation 2.52 (12.00-45.00)
[2020-08-10 10:46] LABS: Protein, Total 6.1 g/dL (6.2-8.2)
--- NOTE | 2020-08-10 13:43 | P.DS ---
Providers Date of admission: 08/08/20 16:22 Expected date of discharge: 08/10/20 Attending physician: Bing Aggarwal DO Consults: 08/08/20 18:06 Consult Physician Routine Consulting Provider: Celio Briceno Consult Reason/Comments: pancytopenia, symptomatic anemia Do you want consulting provider notified?: Yes Primary care physician: RADHAMES Muñoz Hospital Course: Discharge Diagnosis: Pancytopenia Severe iron deficiency Vitamin B12 deficiency COPD stage III Tobacco abuse Hospital Course: Patient is a 60-year-old female with a history of prior iron deficiency anemia, tobacco abuse, and COPD who presented to the emergency department at the direction of Dr. Ayala. She had blood work completed on 08/07 which resulted today and showed a hemoglobin of 5.8. On arrival to the ER she was tachycardic with heart rate of 116. Laboratory analysis showed pancytopenia with a white blood cell count of 1.9, hemoglobin 6.3, platelets of 110. Her sodium level was 134, glucose 108, troponin was negative. Fecal occult blood negative. One unit of packed red blood cells were administered patient was admitted for symptomatic anemia. Of note on the day prior she completed a TSH which was normal at 0.910, B12 225, Iron 36, ferritin 5.3, percent saturation 6.2. She was started on B12. Her HgB was 7.6 on recheck. Retic index less and 2. LDH elevated and uric acid low. She was seen by oncology who started her pancytopenia workup. She was started on IM B12 injections and received 2 prior to discharge. Her hemoglobin continued to improve up to 8.4. Her dyspnea was improved as well. Echocardiogram was checked which revealed a normal ejection fraction of 50-55% and no severe valvular dysfunction. She is determined stable for discharge home with adequate outpatient follow-up. We had several discussions about the need for both an EGD and colonoscopy to rule out continued blood loss. Patient is anxious about this as her from colon cancer, however is agreeable what she seeks with Caren her primary care nurse practitioner. She will also need to follow-up with Dr. Pathak was office and she is in agreement. She will be trialed on oral iron. She was started on Spiriva in addition to her when necessary albuterol for her COPD stage III. I have asked her to focus on following up with her PCP and hematology for the time being as this appears to be somewhat overwhelming for her. She will then need to follow-up with Dr. Dumont within the next few months for further evaluation of her COPD. On follow-up in the office this week I recommend a repeat IM B12 injection as well as a repeat CBC. Patient is aware. Patient seen and examined at bedside. Her breathing is much better. Denies any chest pain, nausea, vomiting. We discussed recommendations as listed above and patient is in agreement. Vital signs reviewed and stable. General: non toxic, no distress, appears at stated age Derm: + Pale warm, dry Head: atraumatic, normocephalic, symmetric Eyes: EOMI, no lid lag, anicteric sclera Mouth: no lip lesion, mucus membranes moist, conjunctival pallor Cardiovascular: S1S2 reg, no murmur, positive posterior tibial pulse bilateral, Lungs: CTA bilateral, no rhonchi, no rales , no accessory muscle use Abdominal: soft, nontender to palpation, no guarding, no appreciable organome max Ext: no gross muscle atrophy, no edema, no contractures Neuro: CN II-XI grossly intact, no focal neuro deficits Psych: Alert, oriented, appropriate affect A total of 35 minutes of time were spent preparing this complex discharge summary . Patient Condition at Discharge: Fair Plan - Discharge Summary Discharge Rx Participant: No New Discharge Prescriptions: New Nicotine Polacrilex [Nicorette] 2 mg BUCCAL Q2HR PRN gum PRN Reason: Nicotine Cravings Ferrous Sulfate [Slow Fe] 142 mg PO DAILY #30 tablet.er Tiotropium [place] [Spiriva] 1 cap INHALATION DAILY #1 inh Continue Ascorbic Acid [Vitamin C] 500 mg PO DAILY Cholecalciferol [Vitamin D3 (25 Mcg = 1000 Iu)] 25 mcg PO DAILY Ascorbic Acid/Elderberry Fruit [Elderberry-Vit C 50-100 mg Chw] 1 tab PO DAILY Albuterol Inhaler [Ventolin Hfa Inhaler] 2 puff INHALATION RT-Q4H PRN PRN Reason: Shortness Of Breath Discharge Medication List Ascorbic Acid [Vitamin C] 500 mg PO DAILY 04/16/19 [History] Albuterol Inhaler [Ventolin Hfa Inhaler] 2 puff INHALATION RT-Q4H PRN 08/08/20 [History] Ascorbic Acid/Elderberry Fruit [Elderberry-Vit C 50-100 mg Chw] 1 tab PO DAILY 08/08/20 [History] Cholecalciferol [Vitamin D3 (25 Mcg = 1000 Iu)] 25 mcg PO DAILY 08/08/20 [Histor y] Ferrous Sulfate [Slow Fe] 142 mg PO DAILY #30 tablet.er 08/10/20 [Rx] Nicotine Polacrilex [Nicorette] 2 mg BUCCAL Q2HR PRN gum 08/10/20 [Rx] Tiotropium [place] [Spiriva] 1 cap INHALATION DAILY #1 inh 08/10/20 [Rx] Follow up Appointment(s)/Referral(s): Caren Watson, RADHAMES [Primary Care Provider] - 1-2 days Toby Pathak MD [STAFF PHYSICIAN] - 2 Weeks Patient Instructions/Handouts: Iron Deficiency Anemia (GEN), Thrombocytopenia (DC), Pancytopenia (DC) Activity/Diet/Wound Care/Special Instructions: Activity: as tolerated Diet: regular Special Instructions: You will need an egd and Colonoscopy speak with Caren about these Make sure you follow-up with Dr. Ayala in 2-3 months Stop smoking Repeat B12 injection with Caren next week and suggest repeat blood work with CBC as well Discharge Disposition: HOME SELF-CARE
[2020-08-11 13:56] LABS: Free Kappa Lt Chain Qnt, Serum 0.85 mg/dL (0.33-1.94)
[2020-08-14 09:51] LABS: Gamma Globulin 0.55 g/dL (0.70-1.50)
== END 2020-08-10 10:32 | disposition home or self-care (01) | DRG 810 ==
LOC: EC 14:30 → 3SCARD 16:22
PROVIDERS: ADMIT Internal Medicine; ATTEND Internal Medicine
PROC: 30233N1 Transfusion of Nonautologous Red Blood Cells into Peripheral Vein, Percutaneous Approach (ICD-10-PCS; principal; 2020-08-08)
DX: D61.818 Other pancytopenia (principal); J44.9 Chronic obstructive pulmonary disease, unspecified; Z20.822 Contact with and (suspected) exposure to COVID-19; F32.9 Major depressive disorder, single episode, unspecified; F17.200 Nicotine dependence, unspecified, uncomplicated; R00.0 Tachycardia, unspecified; F10.11 Alcohol abuse, in remission; D75.89 Other specified diseases of blood and blood-forming organs; R74.02 Elevation of levels of lactic acid dehydrogenase [LDH]; E53.8 Deficiency of other specified B group vitamins; Z79.899 Other long term (current) drug therapy; Z88.8 Allergy status to other drugs, medicaments and biological substances
CPT/HCPCS: 36415; 76705; 80048; 80053; 82272; 82607; 82728; 82747; 83010; 83540; 83550; 83615; 83735; 83883; 83921; 84165; 84484; 84550; 85025; 85045; 85610; 85730; 86038; 86334; 86431; 86850; 86900; 86901; 86920; 87635; 93005; 93306; 94640; 99285

== ENCOUNTER 2020-08-21 08:29 | Day surgery (SDC) | payer BC ==
[2020-08-19 14:36] VITALS: BMI 24.1
[~2020-08-21 08:29] MED LIST: LACTATED RINGERS 1,000 ML IV SCH
[2020-08-21 09:03] VITALS: RESP 16; TEMP 98.4
[2020-08-21] MEDS ORDERED: LIDOCAINE 1% (10MG/ML) FOR IV START INTRADERMA ONE (09:11)
[2020-08-21] MEDS ORDERED: PROPOFOL 10 MG/ML 20 ML VIAL IV ONE (09:33)
[2020-08-21] MEDS ORDERED: MIDAZOLAM 2 MG/2 ML VIAL ONE (09:33)
[2020-08-21] MEDS ORDERED: LIDOCAINE 1% INJ 10MG/ML (20 ML MDV) ONE (09:33)
--- NOTE | 2020-08-21 10:23 | P.PCN ---
Date of Procedure: 08/21/20 Description of Procedure: Brief history: Patient is a pleasant 60-year-old female presenting for outpatient EGD and colonoscopy for evaluation of iron deficiency anemia. No prior endoscopic evaluation. Patient has anemia and has required iron supplementation in the past. She denies any signs or symptoms of GI bleeding. No family history of colon cancer as the patient was adopted. Procedure performed: Esophagogastroduodenoscopy with biopsy Colonoscopy with polypectomy and Endo Clip placement Estimated blood loss: Minimal. Preoperative diagnosis: Iron deficiency anemia Anesthesia: MAC Procedure: After informed consent was obtained from the patient was brought into the endoscopy unit and IV sedation was administered by anesthesia under continuous monitoring. Initially upper endoscopy was done. The Olympus GF 190 video endoscope was inserted into the mouth and esophagus intubated without any difficulty and was gradually advanced into the stomach and duodenum and carefully examined. The bulb and second part of the duodenum appeared normal, with a biopsies taken. The scope was then withdrawn into the stomach adequately insufflated with air and upon careful examination the antrum and body, cardia and fundus appeared normal except for some mild scattered erythema and sup erficial erosions in the antrum and body suggestive of mild gastritis with biopsies taken. The scope was then withdrawn into the esophagus. The GE junction was located at 40 cm to the incisors, with biopsies taken . It appeared regular with no erythema erosions or ulcerations. Rest of the esophagus appeared normal. Patient tolerated the procedure well. At this time the patient continued to remain sedation. Initial digital rectal examination was normal. Olympus CF 190 video colonoscope was then inserted into the rectum and gradually advanced to the cecum without any difficulty. Careful examination was performed as the scope was gradually being withdrawn. The prep was excellent. The cecum, ascending colon, transverse colon, descending colon, sigmoid colon and rectum appeared normal. 4 mm sessile descending colon polyp removed with cold snare polypectomy. 2 sessile rectal polyps measuring 8 mm and 6 mm in size removed with hot snare polypectomy with Endo Clip placed at the si te of the larger polyp 20 cm from the anal verge for hemostasis. Retroflexion was performed in the rectum and no lesions were noted, low-grade internal hemorrhoids. Patient tolerated the procedure well. Impression: 1. Mild gastritis. Biopsies of the duodenum, antrum and body and GE junction. 2. 2 polyps removed from the rectum with hot snare polypectomy, Endo Clip placed at the site of larger polypectomy for hemostasis. Cold snare polypectomy of descending colon polyp. Internal hemorrhoids. Recommendations: Findings of this examination were discussed with the patient as well as the patient's family. Okay to resume diet. Okay to resume medication. Await pathology from polypectomy. Follow up with hematology/oncology service as scheduled. Recommend repeat colonoscopy in 3 years for history of colon polyps.
--- NOTE | 2020-08-21 10:29 | P.ANPRN ---
Procedure Note - Anesthesia - Nerve Block Performed Right Adductor Canal Infusion Time Out Performed: Yes Date of Procedure: 08/21/20 Procedure Start Time: 07:55 Procedure Stop Time: 08:08 Location of Patient: PreOp Indication: Acute Post-Operative Pain, Requested by Surgeon Sedation Type: Sedate with meaningful contact maintained Preparation: Sterile Prep, Sterile Dressing Position: Supine Catheter: Indwelling Needle Types: Pajunk Needle Gauge: 21 Ultrasound used to visualize needle placement: Yes Ultrasound used to observe medication spread: Yes Blood Aspirated: No Pain Paresthesia on Injection Noted: No Resistance on Injection: Normal Image Stored and Saved: Yes Events: Uneventful and Well Tolerated (ropi .5% 20cc plus dexamethasone 4mg)
[2020-08-21 11:06] VITALS: BP 114/69; PULSE 63
== END 2020-08-21 11:22 | disposition home or self-care (01) ==
LOC: ORWHC2ENDO 08:29
PROVIDERS: ATTEND Internal Medicine
DX: D12.4 Benign neoplasm of descending colon (principal); D12.8 Benign neoplasm of rectum; K62.1 Rectal polyp; K64.8 Other hemorrhoids; K29.50 Unspecified chronic gastritis without bleeding; K25.9 Gastric ulcer, unspecified as acute or chronic, without hemorrhage or perforation; K21.00 Gastro-esophageal reflux disease with esophagitis, without bleeding; D50.9 Iron deficiency anemia, unspecified; F17.200 Nicotine dependence, unspecified, uncomplicated; J44.9 Chronic obstructive pulmonary disease, unspecified; Z88.8 Allergy status to other drugs, medicaments and biological substances; Z79.899 Other long term (current) drug therapy; Z98.890 Other specified postprocedural states; Z97.2 Presence of dental prosthetic device (complete) (partial)
CPT/HCPCS: 88305; 45385; 43239; J2250; J2001; J2704; 45382

== ENCOUNTER 2021-01-21 20:39 | Inpatient (IN) | payer BC ==
--- NOTE | 2021-01-21 21:49 | XR ---
EXAMINATION TYPE: XR chest 2V DATE OF EXAM: 01/21/2021 COMPARISON: 08/07/2020 HISTORY: Short of breath TECHNIQUE: 2 views FINDINGS: There is pulmonary hyperinflation and flattening of the diaphragm. Heart and mediastinum ar e normal. There are no hilar masses. Costophrenic angles are fairly clear. Is some coarsening of interstitial markings. IMPRESSION: There is some small linear density left midlung consistent with scarring or subsegmental atelectasis. Normal heart. COPD. Lung markings increased compared to old exam.
--- NOTE | 2021-01-21 22:48 | ED ---
SOB HPI - General Chief Complaint: Shortness of Breath Stated Complaint: SOB,hypoxemia, sent from [employer] Time Seen by Provider: 01/21/21 21:41 Source: patient Mode of arrival: wheelchair Limitations: no limitations - History of Present Illness Initial Comments: Patient is a 60-year-old female with history of COPD, presenting to the emergency Department with complaints of increasing shortness of breath over the past few days. She went to urgent care today for a cough and cold-like symptoms she's been having over the past 4 days, they took her pulse oximetry was low at 87% and she was tachycardia in the 120s so they recommended coming into the ER for evaluation. They did a rapid Covid test which was negative there. She states the symptoms started 4 days ago, with a runny nose, cough and congestion. She states the sputum has been clear. She states over the past 2 days it has been progressively getting worse. She is having a hard time laying back to go to sleep, has to sit upright. She does not use home O2. She's had no fevers, no nausea or vomiting, no diarrhea. She has no further complaints at this time. Upon arrival to the ER, her pulse is 124, 91% on room air. She has no history of blood clots. - Related Data Home Medications Medication Instructions Recorded Confirmed Ascorbic Acid [Vitamin C] 500 mg PO DAILY 04/16/19 08/21/20 Albuterol Inhaler [Ventolin Hfa 2 puff INHALATION RT-Q4H PRN 08/08/20 08/21/20 Inhaler] Ascorbic Acid/Elderberry Fruit 1 tab PO DAILY 08/08/20 08/21/20 [Elderberry-Vit C 50-100 mg [facility]] Cholecalciferol [Vitamin D3 (25 25 mcg PO DAILY 08/08/20 08/21/20 Mcg = 1000 Iu)] Ferrous Sulfate [Slow Fe] 142 mg PO DAILY 08/19/20 08/21/20 Previous Rx's Medication Instructions Recorded Nicotine Polacrilex [Nicorette] 2 mg BUCCAL Q2HR PRN gum 08/10/20 Tiotropium [place]gora [Spiriva] 1 cap INHALATION DAILY #1 inh 08/10/20 Allergies Allergy/AdvReac Type Severity Reaction Status Date / Time ferumoxytol Allergy Severe Rash/Hives Verified 01/21/21 20:49 Review of Systems ROS Statement: Those systems with pertinent positive or pertinent negative responses have been documented in the HPI. ROS Other: All systems not noted in ROS Statement are negative. Past Medical History Past Medical History: No Reported History, COPD Additional Past Medical History / Comment(s): anemia History of Any Multi-Drug Resistant Organisms: None Reported Past Surgical History: No Surgical Hx Reported Additional Past Surgical History / Comment(s): tooth extraction Past Anesthesia/Blood Transfusion Reactions: No Reported Reaction Additional Past Anesthesia/Blood Transfusion Reaction / Comment(s): unknown family hx-pt is adopted Past Psychological History: Depression Smoking Status: Current every day smoker Past Alcohol Use History: None Reported Past Drug Use History: None Reported - Past Family History Father History Unknown: Yes Additional Family Medical History / Comment(s): unknown, adopted at Mother History Unknown: Yes Additional Family Medical History / Comment(s): unknown, adopted at General Exam - General Exam Comments Initial Comments: GENERAL: Patient is well-developed and well-nourished. Patient is nontoxic and in no acute distress. HEAD: Atraumatic, normocephalic. EYES: Pupils equal round and reactive to light, extraocular movements intact, sclera anicteric, conjunctiva are normal. Eyelids were unremarkable. ENT: TMs normal, nares patent, oropharynx clear without exudates. Moist mucous membranes. NECK: Normal range of motion, supple without lymphadenopathy or JVD. LUNGS: Unlabored respirations. Decreased sounds on the left compared to right, no wheezes, rales or rhonchi. HEART: Tachycardia rate and rhythm without murmurs, rubs or gallops. ABDOMEN: Soft, nontender, normoactive bowel sounds. No guarding, no rebound. No masses appreciated. : Deferred MUSCULOSKELETAL: Normal extremities with adequate strength and normal range of motion, no pitting or edema. No clubbing or cyanosis. NEUROLOGICAL: Patient is alert and oriented x 3. Motor and sensory are also intact. Cranial nerves II through XII grossly intact. Symmetrical smile. Normal speech, normal gait. PSYCH: Normal mood, normal affect. SKIN: Warm, Dry, normal turgor, no rashes or lesions noted. Limitations: no limitations Course Vital Signs 01/21/21 01/21/21 01/21/21 20:44 22:38 23:50 Temperature 98.1 F Pulse Rate 124 H 97 Respiratory 18 20 Rate Blood Pressure 128/68 122/86 O2 Sat by Pulse 94 L 91 L 88 L Oximetry Medical Decision Making - Medical Decision Making Patient is a 60-year-old female with history of COPD, presenting for upper respiratory type symptoms as well as low oxygen and being tachycardic. She went to urgent care today who sent her in for further evaluation. Her symptoms have been going on for about 4 days. Patient was 88% at [facility], upon arrival here she is 94% on room air, tachycardia at 124. Labs show a normal white count, normal d-dimer, troponin is normal. Covid is negative. Chest x-ray shows COPD, with increased lung markings compared to previous. Patient was hesitant to stay, we tried her off her oxygen, she quickly dropped to 88%. Patient is on 3 L, 96%. Patient will be admitted for COPD exacerbation. We will start steroids. Patient accepted by Dr. Argueta. Case discussed with Dr. Phillips. - Lab Data Result diagrams: 01/21/21 22:28 01/21/21 22:28 Lab Results 01/21/21 01/21/21 01/21/21 Range/Units 22:28 22:28 22:28 WBC 4.5 (3.8-10.6) k/uL RBC 3.67 L (3.80-5.40) m/uL Hgb 9.6 L (11.4-16.0) gm/dL Hct 33.1 L (34.0-46.0) % MCV 90.2 (80.0-100.0) fL MCH 26.1 (25.0-35.0) pg MCHC 29.0 L (31.0-37.0) g/dL RDW 25.8 H (11.5-15.5) % Plt Count 280 (150-450) k/uL MPV 13.4 Hypochromasia Marked Poikilocytosis Marked Anisocytosis Marked Microcytosis Slight Macrocytosis Slight PT 11.0 (9.0-12.0) sec INR 1.0 (<1.2) APTT 21.2 L (22.0-30.0) sec D-Dimer 0.31 (<0.60) mg/L FEU Sodium 135 L (137-145) mmol/L Potassium 4.3 (3.5-5.1) mmol/L Chloride 102 (98-107) mmol/L Carbon Dioxide 25 (22-30) mmol/L Anion Gap 8 mmol/L BUN 14 (7-17) mg/dL Creatinine 0.59 (0.52-1.04) mg/dL Est GFR (CKD-EPI)AfAm >90 (>60 ml/min/1.73 sqM) Est GFR (CKD-EPI)NonAf >90 (>60 ml/min/1.73 sqM) Glucose 106 H (74-99) mg/dL Plasma Lactic Acid Alex (0.7-2.0) mmol/L Calcium 9.3 (8.4-10.2) mg/dL Magnesium 2.1 (1.6-2.3) mg/dL Total Bilirubin 0.3 (0.2-1.3) mg/dL AST 21 (14-36) U/L ALT 15 (4-34) U/L Alkaline Phosphatase 88 (38-126) U/L Troponin I (0.000-0.034) ng/mL Total Protein 6.6 (6.3-8.2) g/dL Albumin 3.7 (3.5-5.0) g/dL Coronavirus (PCR) (Not Detectd) 01/21/21 01/21/21 01/21/21 Range/Units 22:28 22:28 22:28 WBC (3.8-10.6) k/uL RBC (3.80-5.40) m/uL Hgb (11.4-16.0) gm/dL Hct (34.0-46.0) % MCV (80.0-100.0) fL MCH (25.0-35.0) pg MCHC (31.0-37.0) g/dL RDW (11.5-15.5) % Plt Count (150-450) k/uL MPV Hypochromasia Poikilocytosis Anisocytosis Microcytosis Macrocytosis PT (9.0-12.0) sec INR (<1.2) APTT (22.0-30.0) sec D-Dimer (<0.60) mg/L FEU Sodium (137-145) mmol/L Potassium (3.5-5.1) mmol/L Chloride (98-107) mmol/L Carbon Dioxide (22-30) mmol/L Anion Gap mmol/L BUN (7-17) mg/dL Creatinine (0.52-1.04) mg/dL Est GFR (CKD-EPI)AfAm (>60 ml/min/1.73 sqM) Est GFR (CKD-EPI)NonAf (>60 ml/min/1.73 sqM) Glucose (74-99) mg/dL Plasma Lactic Acid Alex 1.0 (0.7-2.0) mmol/L Calcium (8.4-10.2) mg/dL Magnesium (1.6-2.3) mg/dL Total Bilirubin (0.2-1.3) mg/dL AST (14-36) U/L ALT (4-34) U/L Alkaline Phosphatase (38-126) U/L Troponin I <0.012 (0.000-0.034) ng/mL Total Protein (6.3-8.2) g/dL Albumin (3.5-5.0) g/dL Coronavirus (PCR) Not Detected (Not Detectd) - EKG Data EKG Comments: Sinus tach otherwise normal ECG, no signs of acute ST segment elevation. Ventricular rate 122. ME interval 114, QT 308. Disposition Clinical Impression: COPD exacerbation Disposition: ADMITTED IP TO THIS [facility] Condition: Stable Referrals: Saroj Vides MD [Primary Care Provider] - 1-2 days Decision Date: 01/22/21 Decision Time: 00:04
[2021-01-21 22:59] LABS: ALT 15 U/L (4-34); AST 21 U/L (14-36); African American GFR (CKD) >90 (>60 ml/min/1.73 sqM); Albumin 3.7 g/dL (3.5-5.0); Alkaline Phosphatase 88 U/L (38-126); Anion Gap 8 mmol/L; Blood Urea Nitrogen 14 mg/dL (7-17); Calcium 9.3 mg/dL (8.4-10.2); Carbon Dioxide 25 mmol/L (22-30); Chloride 102 mmol/L (98-107); Glucose 106 mg/dL (74-99); Magnesium 2.1 mg/dL (1.6-2.3); Non-African American GFR(CKD) >90 (>60 ml/min/1.73 sqM); Potassium 4.3 mmol/L (3.5-5.1); Sodium 135 mmol/L (137-145); Total Bilirubin 0.3 mg/dL (0.2-1.3); Total Protein 6.6 g/dL (6.3-8.2)
[2021-01-21 23:07] LABS: Anisocytosis Marked; HCT 33.1 % (34.0-46.0); HGB 9.6 gm/dL (11.4-16.0); Hypochromasia Marked; MCH 26.1 pg (25.0-35.0); MCV 90.2 fL (80.0-100.0); Macrocytosis Slight; Mean Platelet Volume 13.4; Microcytosis Slight; Platelet Count 280 k/uL (150-450); Poikilocytosis Marked; RBC 3.67 m/uL (3.80-5.40)
[2021-01-21] MEDS ORDERED: methylPREDNISolone SOD SUCCI 125 MG/2 ML VIAL IV STA (23:11)
[2021-01-21] MEDS ORDERED: SODIUM CHLORIDE 0.9% 500 ML 500 ML IV STA (23:11)
[2021-01-21 23:14] LABS: RDW 25.8 % (11.5-15.5)
[2021-01-21 23:23] LABS: Partial Thromboplastin Time 21.2 sec (22.0-30.0)
[2021-01-21] MEDS ORDERED: IPRATROPIUM-ALBUTEROL 3 ML NEB INHALATION PRN (23:58)
[2021-01-22 00:18] LABS: Large Platelets Present; Metamyelocytes # (M) 0.13 k/uL (0); Polychromasia Present; RBC Fragments Present; Stomatocytes Present; Target Cells Present
[2021-01-22 00:44] LABS: ABG Base Excess 1.9 mmol/L; ABG HCO3 26 mmol/L (21-25); ABG Oxygen Saturation 97.4 % (94-97); ABG PCO2 39 mmHg (35-45); ABG PH 7.43 (7.35-7.45); ABG PO2 90 mmHg (83-108); ABG TCO2 27 mmol/L (19-24); Allen Test Performed? Yes
--- NOTE | 2021-01-22 02:49 | P.HPIM ---
History of Present Illness H&P Date: 01/22/21 Patient is a 60-year-old female with a PMH of tobacco abuse and COPD who presented to the emergency room with complaints of shortness of breath and wheezing. The patient reports that her symptoms started roughly 3-4 days ago when she initially developed nasal congestion and a nonproductive cough. She reports that she subsequently then developed or shortness of breath with wheezing which was not alleviated with her inhalers at home. She reports continued smoking of half a pack of cigarettes daily, with a history of 40 pack years smoking. She denied fever, chills, chest pain. Denied nausea, vomiting or abdominal pain, diarrhea. EKG in the emergency room revealed sinus tachycardia 122 bpm. Chest x-ray was consistent with COPD. Laboratory evaluation was remarkable for hemoglobin of 9.6 (previously 11.6). Review of systems: Pertinent positives and negatives as discussed in HPI, a complete review of systems was performed and all other systems are negative. Physical examination: General: non toxic, no distress, appears at stated age, normal weight Derm: no unusual rashes/lesions no unusual ecchymoses, warm, dry Head: atraumatic, normocephalic, symmetric Eyes: EOMI, no lid lag, anicteric sclera, pupils equal round reactive to light ENT: Nose and ears atraumatic, no thrush, no pharyngeal erythema Neck: No thyromegaly, no cervical lymphadenopathy, trachea midline, supple Mouth: no lip lesion, mucus membranes moist Cardiovascular: S1S2 reg, no murmur, positive posterior tibial pulse bilateral, no edema, capillary refill less than 2 seconds Lungs: Somewhat poor entry bilaterally with some expiratory wheezing, no rales or rhonchi appreciated, no accessory muscle use Abdominal: soft, nontender to palpation, no guarding, no appreciable organomegaly, normal bowel sounds Ext: no gross muscle atrophy, muscle strength 5 out of 5 in all 4 extremities grossly, no contractures, Neuro: CN II-XI grossly intact, light touch intact all 4 extremities, finger to nose within normal limits, Psych: Alert, oriented, appropriate affect Assessment/plan Acute COPD exacerbation -C/w oral prednisone for now -DuoNeb's -Supplemental oxygen Normocytic anemia -Check anemia panel DVT prophylaxis -Heparin The patient is admitted with an anticipated greater than 2 midnight stay for evaluation of COPD CODE STATUS: Full Code Discussed with: Patient Anticipated discharge date: [address]: Home Past Medical History Past Medical History: No Reported History, COPD Additional Past Medical History / Comment(s): anemia History of Any Multi-Drug Resistant Organisms: None Reported Past Surgical History: No Surgical Hx Reported Additional Past Surgical History / Comment(s): tooth extraction Past Anesthesia/Blood Transfusion Reactions: No Reported Reaction Additional Past Anesthesia/Blood Transfusion Reaction / Comment(s): unknown family hx-pt is adopted Past Psychological History: Depression Smoking Status: Current every day smoker Past Alcohol Use History: None Reported Past Drug Use History: None Reported - Past Family History Father History Unknown: Yes Additional Family Medical History / Comment(s): unknown, adopted at Mother History Unknown: Yes Additional Family Medical History / Comment(s): unknown, adopted at Medications and Allergies Home Medications Medication Instructions Recorded Confirmed Type Ascorbic Acid [Vitamin C] 500 mg PO DAILY 04/16/19 08/21/20 History Albuterol Inhaler [Ventolin Hfa 2 puff INHALATION RT-Q4H PRN 08/08/20 08/21/20 History Inhaler] Ascorbic Acid/Elderberry Fruit 1 tab PO DAILY 08/08/20 08/21/20 History [Elderberry-Vit C 50-100 mg Chw] Cholecalciferol [Vitamin D3 (25 25 mcg PO DAILY 08/08/20 08/21/20 History Mcg = 1000 Iu)] Nicotine Polacrilex [Nicorette] 2 mg BUCCAL Q2HR PRN gum 08/10/20 08/21/20 Rx Tiotropium Bentley [Spiriva] 1 cap INHALATION DAILY #1 inh 08/10/20 08/21/20 Rx Ferrous Sulfate [Slow Fe] 142 mg PO DAILY 08/19/20 08/21/20 History Allergies Allergy/AdvReac Type Severity Reaction Status Date / Time ferumoxytol Allergy Severe Rash/Hives Verified 01/21/21 20:49 Physical Exam Vitals: Vital Signs Temp Pulse Resp BP Pulse Ox 01/22/21 01:48 76 20 98/62 96 01/22/21 00:12 107 H 20 136/81 98 01/21/21 23:50 88 L 01/21/21 22:38 97 20 122/86 91 L 01/21/21 20:44 98.1 F 124 H 18 128/68 94 L Intake and Output 01/21/21 01/21/21 01/22/21 14:59 22:59 06:59 Other: Weight 54.431 kg Results CBC & Chem 7: 01/21/21 22:28 01/21/21 22:28 Labs: Abnormal Lab Results - Last 24 Hours (Table) 01/21/21 01/21/21 01/21/21 Range/Units 22:28 22:28 22:28 RBC 3.67 L (3.80-5.40) m/uL Hgb 9.6 L (11.4-16.0) gm/dL Hct 33.1 L (34.0-46.0) % MCHC 29.0 L (31.0-37.0) g/dL RDW 25.8 H (11.5-15.5) % APTT 21.2 L (22.0-30.0) sec Sodium 135 L (137-145) mmol/L Glucose 106 H (74-99) mg/dL
[2021-01-22] MEDS: IPRATROPIUM-ALBUTEROL 3 ML NEB INHALATION SCH ×4 (07:29→19:07)
[2021-01-22] MEDS: HEPARIN SODIUM,PORCINE/PF 5,000 UNIT/0.5 ML SYRINGE SQ SCH ×4 (08:49→23:42)
[2021-01-22] MEDS ORDERED: predniSONE 20 MG TAB PO SCH (09:00)
[2021-01-22 10:03] LABS: % Iron Saturation 5.5 (12.00-45.00)
[2021-01-22 11:22] LABS: Ferritin 40.4 ng/mL (10.0-291.0)
[2021-01-22 11:51] LABS: Anisocytosis (M) 2+; HCT 31.5 % (37.2-46.3); HGB 9.1 g/dL (12.0-15.0); MCH 26.2 pg (27.0-32.0); MCHC 28.9 g/dL (32.0-37.0); MCV 90.8 fL (80.0-97.0); Platelet Count 182 X 10*3/uL (140-440); RBC 3.47 X 10*6/uL (4.10-5.20); RDW 27.6 % (11.5-14.5); WBC 2.88 X 10*3/uL (4.50-10.00)
--- NOTE | 2021-01-22 12:52 | P.CNPUL ---
History of Present Illness Consult date: 01/22/21 Reason for consult: dyspnea, COPD History of present illness: 60-year-old female patient with known history of COPD and chronic smoking, who developed symptoms of URI few days back and ultimately she became progressively more short of breath cough and congestion got worse and the patient started having worsening rest of her symptoms. For that reason she saw he was seen at [facility] and she was referred to the hospital for hospitalization for an underlying COPD exacerbation. Note that the patient has taken COVID-19 vaccination 1 and she has not completed her vaccination completely. Nevertheless, her COVID-19 testing came back negative. Her chest x-ray was consistent with COPD with hyperinflation and there is no evidence of any ai rspace disease or pneumonia. No fever. No chills. No pleurisy. No chest pain. No swelling in lower extremities. She has history of [id number] smoking history. She has history of pancytopenia and the patient has been managed by Dr. Pathak. Her white cell count currently is at 2.8 with hemo globin of 9.1. She has under 1 GI workup including colonoscopy and EGD and she was found to have some iron deficiency replaced by iron and her hemoglobin currently is up to 9.1. Platelet count was as low as 80 and currently is up to 182. The Baseline spirometry was done in our office showed an FEV1 of 35% of predicted. The diffusion capacity was down to 29% of predicted and this is based on the pulmonary function test that was done on 08/07/2020. She is maintenance Spiriva and albuterol HFA as needed on outpatient basis. The blood gases during this current admission showed a pH of 7.43 with a pCO2 of 39 and pO2 of 90 and this was done and FiO2 of 28%. Her total serum iron was 17. Her proBNP level was 189. Troponin was negative. Review of Systems Constitutional: Reports fatigue Eyes: denies as per HPI, denies blurred vision, denies bulging eye, denies decreased vision, denies diplopia, denies discharge, denies dry eye, denies irritation, denies itching, denies pain, denies photophobia, denies loss of peripheral vision, denies loss of vision, denies tunnel vision/blind spots Ears: deny: decreased hearing, ear discharge, earache, tinnitus Ears, nose, mouth and throat: Reports as per HPI Breasts: absent: as per HPI, change in shape, gynecomastia, masses, nipple discharge, pain, skin changes, swelling Cardiovascular: Reports decreased exercise tolerance, Reports dyspnea on exertion, Reports shortness of breath Respiratory: Reports cough, Reports cough with sputum, Reports dyspnea, Reports respiratory infections, Reports wheezing Gastrointestinal: Reports as per HPI Genitourinary: Reports as per HPI Menstruation: Reports as per HPI Musculoskeletal: Reports as per HPI Musculoskeletal: absent: ankle pain, ankle stiffness, ankle swelling, as per HPI, elbow pain, elbow stiffness, elbow swelling, foot pain, foot stiffness, foot swelling, hand pain, hand stiffness, hand swelling, hip pain, hip stiffness, hip swelling, knee pain, knee stiffness, knee swelling, shoulder pain, shoulder stiffness, shoulder swelling, wrist pain, wrist stiffness, wrist swelling Integumentary: Reports as per HPI Neurological: Reports as per HPI Psychiatric: Reports as per HPI Endocrine: Reports as per HPI Hematologic/Lymphatic: Reports as per HPI Allergic/Immunologic: Reports as per HPI Past Medical History Past Medical History: No Reported History, COPD Additional Past Medical History / Comment(s): Pancytopenia, iron deficiency anemia, COPD History of Any Multi-Drug Resistant Organisms: None Reported Past Surgical History: No Surgical Hx Reported Additional Past Surgical History / Comment(s): tooth extraction Past Anesthesia/Blood Transfusion Reactions: No Reported Reaction Additional Past Anesthesia/Blood Transfusion Reaction / Comment(s): unknown family hx-pt is adopted Smoking Status: Current every day smoker - Past Family History Father History Unknown: Yes Additional Family Medical History / Comment(s): unknown, adopted at Mother History Unknown: Yes Additional Family Medical History / Comment(s): unknown, adopted at Medications and Allergies Home Medications Medication Instructions Recorded Confirmed Type Albuterol Inhaler [Ventolin Hfa 2 puff INHALATION RT-Q4H PRN 08/08/20 01/22/21 History Inhaler] Ferrous Sulfate [Slow Fe] 142 mg PO BID 08/19/20 01/22/21 History Benzonatate [Tessalon Perles] 100 mg PO Q6H PRN 01/22/21 01/22/21 History Tiotropium Antelope [Spiriva] 1 cap INHALATION RT-DAILY 01/22/21 01/22/21 History Allergies Allergy/AdvReac Type Severity Reaction Status Date / Time ferumoxytol Allergy Severe Rash/Hives Verified 01/22/21 07:13 Physical Exam Vitals: Vital Signs Temp Pulse Pulse Resp BP BP Pulse Ox 01/22/21 07:43 97.6 F 112 H 16 121/81 96 01/22/21 07:29 113 H 20 97 01/22/21 01:48 76 20 98/62 96 01/22/21 00:12 107 H 20 136/81 98 01/21/21 23:50 88 L 01/21/21 22:38 97 20 122/86 91 L 01/21/21 20:44 98.1 F 124 H 18 128/68 94 L Intake and Output 01/21/21 01/22/21 01/22/21 22:59 06:59 14:59 Other: Weight 54.431 kg 54.431 kg General: non toxic, no distress, appears at stated age, normal weight Examination of the skin revealed no evidence of significant rashes, suspicious appearing nevi or other concerning lesions. Head exam was generally normal. There was no scleral icterus or corneal arcus. Mucous membranes were moist. Eyes: EOMI, no lid lag, anicteric sclera, pupils equal round reactive to light ENT: Nose and ears atraumatic, no thrush, no pharyngeal erythema Neck: No thyromegaly, no cervical lymphadenopathy, trachea midline, supple Mouth: no lip lesion, mucus membranes moist Cardiovascular: S1S2 reg, no murmur, positive posterior tibial pulse bilateral, no edema, capillary refill less than 2 seconds Lungs: Somewhat poor entry bilaterally with some expiratory wheezing, no rales or rhonchi appreciated, no accessory muscle use Abdominal: soft, nontender to palpation, no guarding, no appreciable organomegaly, normal bowel sounds Ext: no gross muscle atrophy, muscle strength 5 out of 5 in all 4 extremities grossly, no contractures, Neuro: CN II-XI grossly intact, light touch intact all 4 extremities, finger to nose within normal limits, Psych: Alert, oriented, appropriate affect Results - Laboratory Findings CBC and BMP: 01/22/21 04:50 01/21/21 22:28 ABG WBC 2.88 X 10*3/uL (4.50-10.00) L 01/22/21 04:50 RBC 3.47 X 10*6/uL (4.10-5.20) L 01/22/21 04:50 Hgb 9.1 g/dL (12.0-15.0) L 01/22/21 04:50 Hct 31.5 % (37.2-46.3) L 01/22/21 04:50 MCV 90.8 fL (80.0-97.0) 01/22/21 04:50 MCH 26.2 pg (27.0-32.0) L 01/22/21 04:50 MCHC 28.9 g/dL (32.0-37.0) L 01/22/21 04:50 RDW 27.6 % (11.5-14.5) H 01/22/21 04:50 Plt Count 182 X 10*3/uL (140-440) 01/22/21 04:50 Plt Count Comment A 01/22/21 04:50 MPV 13.4 01/21/21 22:28 Absolute Nucleated RBC 0.16 X 10*3/uL (0.00-0.00) H 01/22/21 04:50 NRBC/100 WBC Diff 5.6 /100 WBCS (0.0-0.0) H 01/22/21 04:50 Hypochromasia Marked 01/21/21 22:28 Poikilocytosis Marked 01/21/21 22:28 Anisocytosis Marked 01/21/21 22:28 Anisocytosis (manual) 2+ 01/22/21 04:50 Microcytosis Slight 01/21/21 22:28 Macrocytosis Slight 01/21/21 22:28 Elliptocytes 2+ 01/22/21 04:50 PT 11.0 sec (9.0-12.0) 01/21/21 22:28 INR 1.0 (<1.2) 01/21/21 22:28 APTT 21.2 sec (22.0-30.0) L 01/21/21 22:28 D-Dimer 0.31 mg/L FEU (<0.60) 01/21/21 22:28 ABG pH 7.43 (7.35-7.45) 01/22/21 00:41 ABG pCO2 39 mmHg (35-45) 01/22/21 00:41 ABG pO2 90 mmHg (83-108) 01/22/21 00:41 ABG HCO3 26 mmol/L (21-25) H 01/22/21 00:41 ABG Total CO2 27 mmol/L (19-24) H 01/22/21 00:41 ABG O2 Saturation 97.4 % (94-97) H 01/22/21 00:41 ABG Base Excess 1.9 mmol/L 01/22/21 00:41 Reginald Test Yes 01/22/21 00:41 FiO2 28 % 01/22/21 00:41 Sodium 135 mmol/L (137-145) L 01/21/21 22:28 Potassium 4.3 mmol/L (3.5-5.1) 01/21/21 22:28 Chloride 102 mmol/L (98-107) 01/21/21 22:28 Carbon Dioxide 25 mmol/L (22-30) 01/21/21 22:28 Anion Gap 8 mmol/L 01/21/21 22:28 BUN 14 mg/dL (7-17) 01/21/21 22:28 Creatinine 0.59 mg/dL (0.52-1.04) 01/21/21 22:28 Est GFR (CKD-EPI)AfAm >90 (>60 ml/min/1.73 sqM) 01/21/21 22:28 Est GFR (CKD-EPI)NonAf >90 (>60 ml/min/1.73 sqM) 01/21/21 22:28 Glucose 106 mg/dL (74-99) H 01/21/21 22:28 Plasma Lactic Acid Alex 1.0 mmol/L (0.7-2.0) 01/21/21 22:28 Calcium 9.3 mg/dL (8.4-10.2) 01/21/21 22:28 Magnesium 2.1 mg/dL (1.6-2.3) 01/21/21 22:28 Iron 17 ug/dL (50-170) L 01/22/21 04:50 TIBC 309 ug/dL (228-460) 01/22/21 04:50 % Saturation 5.50 (12.00-45.00) L 01/22/21 04:50 Ferritin 40.4 ng/mL (10.0-291.0) 01/22/21 04:50 Total Bilirubin 0.3 mg/dL (0.2-1.3) 01/21/21 22:28 AST 21 U/L (14-36) 01/21/21 22:28 ALT 15 U/L (4-34) 01/21/21 22:28 Alkaline Phosphatase 88 U/L (38-126) 01/21/21 22:28 Troponin I <0.012 ng/mL (0.000-0.034) 01/21/21 22:28 NT-Pro-B Natriuret Pep 189 pg/mL 01/21/21 22:28 Total Protein 6.6 g/dL (6.3-8.2) 01/21/21 22:28 Albumin 3.7 g/dL (3.5-5.0) 01/21/21 22:28 Vitamin B12 429.0 pg/mL (200.0-944.0) 01/22/21 04:50 Coronavirus (PCR) Not Detected (Not Detectd) 01/21/21 22:28 PT/INR, D-dimer PT 11.0 sec (9.0-12.0) 01/21/21 22:28 INR 1.0 (<1.2) 01/21/21 22:28 D-Dimer 0.31 mg/L FEU (<0.60) 01/21/21 22:28 Abnormal lab findings: Abnormal Labs 01/21/21 01/21/21 01/21/21 22:28 22:28 22:28 WBC RBC 3.67 L Hgb 9.6 L Hct 33.1 L MCH MCHC 29.0 L RDW 25.8 H Plt Count Comment Absolute Nucleated RBC NRBC/100 WBC Diff APTT 21.2 L ABG HCO3 ABG Total CO2 ABG O2 Saturation Sodium 135 L Glucose 106 H Iron % Saturation 01/22/21 01/22/21 01/22/21 00:41 04:50 04:50 WBC 2.88 L RBC 3.47 L Hgb 9.1 L Hct 31.5 L MCH 26.2 L MCHC 28.9 L RDW 27.6 H Plt Count Comment A Absolute Nucleated RBC 0.16 H NRBC/100 WBC Diff 5.6 H APTT ABG HCO3 26 H ABG Total CO2 27 H ABG O2 Saturation 97.4 H Sodium Glucose Iron 17 L % Saturation 5.50 L - Diagnostic Findings Chest x-ray: image reviewed Assessment and Plan Plan: 1 Acute COPD exacerbation probably related to URI/bronchitis. No evidence of pneumonia at this point in time. Chest x-ray is free of any acute pulmonary infiltrates. 2 severe COPD with a baseline FEV1 of 34% of predicted maintenance Spiriva on outpatient basis in addition to albuterol HFA 3 chronic dyspnea secondary to above 4 COVID-19 vaccination 1 and the patient's COVID-19 by PCR came back negative 5 history of smoking 6 history of iron deficiency anemia 7 history of pancytopenia, platelet count is improved and the white cell count remains somewhat low Plan DuoNeb nebulized treatments around the clock 4 times a day IV Solu Medrol 60 mg every 6 hours Zithromax 500 mg by mouth daily Smoking cessation counseling Nicotine patch if needed Oxygen to maintain a saturation above 90% Iron supplements Monitor hemoglobin and hematologic profile Chest x-ray was noted Heparin subcu for prophylaxis. We'll continue to follow
[2021-01-22] MEDS: methylPREDNISolone SOD SUCCI 125 MG/2 ML VIAL IV SCH ×3 (14:11→23:41)
[2021-01-22] MEDS: FERROUS SULFATE 325 MG TAB PO SCH (14:11)
[2021-01-22] MEDS: AZITHROMYCIN 500 MG in SODIUM CHLORIDE 0.9% 250 ML IVPB SCH (14:12)
[2021-01-22 15:06] LABS: Blast Cells # (M) 0.08 k/uL (0); Eosinophils # (M) 0.04 k/uL (0-0.7); Lymphocytes # (M) 1.13 k/uL (1.0-4.8); Mixed Population RBC Present; Monocytes # (M) 0.38 k/uL (0-1.0); Neutrophils % (M) 61 %; Nucleated Red Blood Cells 3 /100 WBC (0-0); Total Cells Counted 100; WBC 4.2 k/uL (3.8-10.6)
[2021-01-22 15:13] LABS: Neutrophils # (M) 2.56 k/uL (1.3-7.7)
[2021-01-22] MEDS ORDERED: NICOTINE POLACRILEX 2 MG GUM BUCCAL PRN (16:14)
--- NOTE | 2021-01-22 16:22 | P.PN ---
<Ryder Tobar - Last Filed: 01/22/21 15:40> Subjective Progress Note Date: 01/22/21 Hospital course: Patient is a 60-year-old female with a past medical history of COPD, pancytope bull, iron deficiency anemia, and long-standing history of an current use of tobacco products smoking approximately half a pack to a pack of cigarettes daily. Patient presented to the emergency department on 01/21/21 with a chief complaint of shortness of breath, cough, and congestion beginning a few days ago and progressively worsening. 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 She was seen and fully evaluated in the emergency department. An EKG was completed showing sinus tachycardia at 122 bpm. Chest x-ray revealed hyperinflation and flattening diaphragm consistent with COPD. Covid 19 PCR was negative. Patient admitted under our services for acute COPD exacerbation along with consultation to pulmonology. CBC with differential resulted in 2% blast cells with abnormal smear, hematology consult placed. Physical exam: Patient was seen and fully evaluated at the bedside. She reports being a viral- like infection over the past 3 days consisting of clear runny nose and cough. Patient states that accompanied by this she developed progressively worsening shortness of breath and came to the emergency department because she felt she needed an antibiotic. Patient denies having any recent fevers, chills, headache, lightheadedness, dizziness, sore throat, chest pain, palpitations, abdominal pain, nausea, vomiting, or any changes in her urinary or bowel function. CBC with differential resulted in 2% blast cells with abnormal smear, hematology consult placed. Vital signs reviewed and stable. General: Nontoxic, no distress and appears stated age. Derm: Skin warm and dry, normal coloration for ethnicity. Head: Atraumatic, normocephalic and symmetric. Eyes: EOMs intact, no lid lag, and anicteric sclera Mouth: no lip lesions, mucus membranes moist Cardiovascular: regular rate and rhythm with normal S1S2, no murmur, positive posterior tibial pulses bilaterally, and cap refill < 2 seconds. Lungs: Respirations even, regular, and unlabored on 2 L O2 via nasal cannula. Lungs diminished throughout with diffuse soft expiratory wheezes. No rhonchi, rales, or crackles noted. No accessory muscle usage. Abdominal: Soft, nontender to palpation, no guarding, no appreciable organomegaly. Ext: ROM intact. No gross muscle atrophy, no edema, no contractures. Neuro: Speech clear, face symmetrical and CN II-XII grossly intact with no noted focal neuro deficits. Psych: Alert and oriented to person, place, time, and situation. Appropriate and pleasant affect. Assessment and Plan of Care: Acute COPD exacerbation -Consult to Pulmonology -Oxygenation to be administered and titrated as needed to maintain SPO2 equal to or greater than 92% -Telemetry monitoring. -Solu-Medrol 60 mg IVP every 6 hours -Duonebs scheduled and as needed for SOB and/or wheezing -Incentive Spirometry -Antibiotics: Azithromycin Abnormal lab findings revealing 2% blasts cells with an abnormal smear with r eportedly significantly abnormal granulocytes per pathologist, patient with history of pancytopenia and iron deficiency anemia -Hematology consulted. Nicotine dependence -Patient received education on the importance of smoking cessation and the risks of continued use. -Nicorette gum CODE STATUS: Full code DVT prophylaxis: Heparin Discussed with: Patient and RN Anticipated discharge date: Clinical course to determine Anticipated discharge place: Home A total of 45 minutes was spent on the care of this complex patient more than 50% of the time was spent in counseling and care coordination. Objective - Vital Signs Vital signs: Vital Signs Temp 97.6 F 01/22/21 07:43 Pulse 112 H 01/22/21 07:43 Resp 16 01/22/21 07:43 BP 121/81 01/22/21 07:43 Pulse Ox 96 01/22/21 07:43 Intake & Output 01/21/21 01/22/21 01/22/21 18:59 06:59 18:59 Weight 54.431 kg - Labs CBC & Chem 7: 01/22/21 04:50 01/21/21 22:28 Labs: Abnormal Lab Results - Last 24 Hours (Table) 01/21/21 01/21/21 01/21/21 Range/Units 22:28 22:28 22:28 RBC 3.67 L (3.80-5.40) m/uL Hgb 9.6 L (11.4-16.0) gm/dL Hct 33.1 L (34.0-46.0) % MCHC 29.0 L (31.0-37.0) g/dL RDW 25.8 H (11.5-15.5) % APTT 21.2 L (22.0-30.0) sec ABG HCO3 (21-25) mmol/L ABG Total CO2 (19-24) mmol/L ABG O2 Saturation (94-97) % Sodium 135 L (137-145) mmol/L Glucose 106 H (74-99) mg/dL 01/22/21 Range/Units 00:41 RBC (3.80-5.40) m/uL Hgb (11.4-16.0) gm/dL Hct (34.0-46.0) % MCHC (31.0-37.0) g/dL RDW (11.5-15.5) % APTT (22.0-30.0) sec ABG HCO3 26 H (21-25) mmol/L ABG Total CO2 27 H (19-24) mmol/L ABG O2 Saturation 97.4 H (94-97) % Sodium (137-145) mmol/L Glucose (74-99) mg/dL <Bing Aggarwal - Last Filed: 01/22/21 18:40> Subjective Patient seen and examined independently. Patient was also seen by Ryder Tobar NP and case was discussed. I am in agreement with subjective, physical exam, assessment and plan as written above and amended below. She did get her colonoscopy, She had been taking oral Fe and following with Caren and Dr. Pathak. General: non toxic, no distress, appears at stated age Derm: warm, dry Head: atraumatic, normocephalic, symmetric Eyes: EOMI, no lid lag, anicteric sclera Mouth: no lip lesion, mucus membranes moist Cardiovascular: S1S2 reg, no murmur, positive posterior tibial pulse bilateral, Lungs: diffused wheezing bilateral, no rhonchi, no rales , no accessory muscle use Psych: Alert, oriented, appropriate affect Objective - Vital Signs Vital signs: Vital Signs Temp 97.9 F 01/22/21 14:00 Pulse 111 H 01/22/21 15:46 Resp 16 01/22/21 14:00 BP 136/87 01/22/21 14:00 Pulse Ox 97 01/22/21 14:00 Intake & Output 08/18/21 08/19/21 08/19/21 18:59 06:59 18:59 Intake Total 236 Balance 236 Weight 54.431 kg 54.431 kg Intake: Oral 236 Other: # Voids 3 - Labs CBC & Chem 7: 01/22/21 04:50 01/21/21 22:28 Labs: Abnormal Lab Results - Last 24 Hours (Table) 01/21/21 01/21/21 01/21/21 Range/Units 22:28 22:28 22:28 WBC (4.50-10.00) X 10*3/uL RBC 3.67 L (3.80-5.40) m/uL Hgb 9.6 L (11.4-16.0) gm/dL Hct 33.1 L (34.0-46.0) % MCH (27.0-32.0) pg MCHC 29.0 L (31.0-37.0) g/dL RDW 25.8 H (11.5-15.5) % Plt Count Comment Absolute Nucleated RBC (0.00-0.00) X 10*3/uL Blast Cells % 2 H* % Metamyelocytes # (Man) 0.13 H (0) k/uL Blast Cells # (Man) 0.08 H (0) k/uL Nucleated RBCs 3 H (0-0) /100 WBC NRBC/100 WBC Diff (0.0-0.0) /100 WBCS Pathologist Review See comment A APTT 21.2 L (22.0-30.0) sec ABG HCO3 (21-25) mmol/L ABG Total CO2 (19-24) mmol/L ABG O2 Saturation (94-97) % Sodium 135 L (137-145) mmol/L Glucose 106 H (74-99) mg/dL Iron (50-170) ug/dL % Saturation (12.00-45.00) 01/22/21 01/22/21 01/22/21 Range/Units 00:41 04:50 04:50 WBC 2.88 L (4.50-10.00) X 10*3/uL RBC 3.47 L (3.80-5.40) m/uL Hgb 9.1 L (11.4-16.0) gm/dL Hct 31.5 L (34.0-46.0) % MCH 26.2 L (27.0-32.0) pg MCHC 28.9 L (31.0-37.0) g/dL RDW 27.6 H (11.5-15.5) % Plt Count Comment A Absolute Nucleated RBC 0.16 H (0.00-0.00) X 10*3/uL Blast Cells % % Metamyelocytes # (Man) (0) k/uL Blast Cells # (Man) (0) k/uL Nucleated RBCs (0-0) /100 WBC NRBC/100 WBC Diff 5.6 H (0.0-0.0) /100 WBCS Pathologist Review APTT (22.0-30.0) sec ABG HCO3 26 H (21-25) mmol/L ABG Total CO2 27 H (19-24) mmol/L ABG O2 Saturation 97.4 H (94-97) % Sodium (137-145) mmol/L Glucose (74-99) mg/dL Iron 17 L (50-170) ug/dL % Saturation 5.50 L (12.00-45.00)
[2021-01-23] MEDS: methylPREDNISolone SOD SUCCI 125 MG/2 ML VIAL IV SCH ×3 (05:44→17:30)
[2021-01-23] MEDS: IPRATROPIUM-ALBUTEROL 3 ML NEB INHALATION SCH ×4 (09:11→20:41)
[2021-01-23] MEDS: FERROUS SULFATE 325 MG TAB PO SCH (09:24)
[2021-01-23] MEDS: HEPARIN SODIUM,PORCINE/PF 5,000 UNIT/0.5 ML SYRINGE SQ SCH ×2 (09:24→12:08)
[2021-01-23] MEDS: AZITHROMYCIN 500 MG in SODIUM CHLORIDE 0.9% 250 ML IVPB SCH (09:27)
[2021-01-23 11:27] LABS: Anion Gap 11.2 mmol/L (4.00-12.00); BUN/Creat Ratio 31.67 Ratio (12.00-20.00); Calcium 9.4 mg/dL (8.7-10.3); Carbon Dioxide 24.8 mmol/L (21.6-31.8); Magnesium 2.4 mg/dL (1.5-2.4); Non-African American GFR(CKD) 98.4 (60.0-200.0); Potassium 4.8 mmol/L (3.5-5.5)
[2021-01-23 13:13] LABS: T4, Free (Free Thyroxine) 1.38 ng/dL (0.78-2.19)
[2021-01-23 15:11] LABS: HCT 32.6 % (37.2-46.3); HGB 9.2 g/dL (12.0-15.0); MCH 26.1 pg (27.0-32.0); MCHC 28.2 g/dL (32.0-37.0); MCV 92.4 fL (80.0-97.0); Platelet Count 181 X 10*3/uL (140-440); RBC 3.53 X 10*6/uL (4.10-5.20); RDW 27.9 % (11.5-14.5); WBC 6.52 X 10*3/uL (4.50-10.00)
[2021-01-23 15:12] LABS: Anisocytosis (M) 2+; Basophils # (M) 0 X 10*3/uL (0.00-0.10); Eosinophils # (M) 0 X 10*3/uL (0.04-0.35); Hypochromasia (M) 2+; Lymphocytes # (M) 0.46 X 10*3/uL (0.90-5.00); Monocytes # (M) 0.13 X 10*3/uL (0.20-1.00); Neutrophils # (M) 5.93 X 10*3/uL (2.00-8.90); Neutrophils % (M) 91 %; Polychromasia 2+
--- NOTE | 2021-01-23 15:50 | P.PN ---
<Ryder Tobar - Last Filed: 01/23/21 15:40> Subjective Progress Note Date: 01/23/21 Hospital course: Patient is a 60-year-old female with a past medical history of COPD, pancytope bull, iron deficiency anemia, and long-standing history of an current use of tobacco products smoking approximately half a pack to a pack of cigarettes daily. Patient presented to the emergency department on 01/21/21 with a chief complaint of shortness of breath, cough, and congestion beginning a few days ago and progressively worsening. 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 She was seen and fully evaluated in the emergency department. An EKG was completed showing sinus tachycardia at 122 bpm. Chest x-ray revealed hyperinflation and flattening diaphragm consistent with COPD. Covid 19 PCR was negative. Patient admitted under our services for acute COPD exacerbation along with consultation to pulmonology. CBC with differential resulted in 2% blast cells with abnormal smear, hematology consult placed. 01/22/21: Patient was seen and fully evaluated at the bedside. She reports being a viral-like infection over the past 3 days consisting of clear runny nose and cough. Patient states that accompanied by this she developed progressively worsening shortness of breath and came to the emergency department because she felt she needed an antibiotic. Patient denies having any recent fevers, chills, headache, lightheadedness, dizziness, sore throat, chest pain, palpitations, abdominal pain, nausea, vomiting, or any changes in her urinary or bowel function. CBC with differential resulted in 2% blast cells with abnormal smear, hematology consult placed. 01/23/21: Patient seen and evaluated at bedside this morning. Patient resting comfortably in bed. She continues to have noted conversational dyspnea and remains on 3 L O2 via nasal cannula with SpO2 of 92%. Awaiting repeat a.m. labs to result. RBC folate resulted yesterday at 955. Patient currently reports slight improvement in her shortness of breath however stating significant shortness of breath with exertion, weakness, and cough. Patient denies having any headache, lightheadedness, dizziness, chest pain, palpitations, nausea, or vomiting. She has remained afebrile since admission. Physical exam: Vital signs reviewed and stable. General: Nontoxic, no distress and appears stated age. Derm: Skin warm and dry, normal coloration for ethnicity. Head: Atraumatic, normocephalic and symmetric. Eyes: EOMs intact, no lid lag, and anicteric sclera Mouth: no lip lesions, mucus membranes moist Cardiovascular: regular rate and rhythm with normal S1S2, no murmur, positive posterior tibial pulses bilaterally, and cap refill < 2 seconds. Lungs: Respirations even, regular, and unlabored on 3 L O2 via nasal cannula. Conversational dyspnea noted. Lungs diminished throughout with diffuse soft expiratory wheezes. No rhonchi, rales, or crackles noted. No accessory muscle usage. Abdominal: Soft, nontender to palpation, no guarding, no appreciable organom egaly. Ext: ROM intact. No gross muscle atrophy, no edema, no contractures. Neuro: Speech clear, face symmetrical and CN II-XII grossly intact with no noted focal neuro deficits. Psych: Alert and oriented to person, place, time, and situation. Appropriate and pleasant affect. Assessment and Plan of Care: Acute COPD exacerbation -Pulmonology following -Oxygenation to be administered and titrated as needed to maintain SPO2 equal to or greater than 92%, patient currently on 3 L O2 via nasal cannula with SpO2 92%. -Telemetry monitoring. -Solu-Medrol 60 mg IVP every 6 hours -Duonebs scheduled and as needed for SOB and/or wheezing -Incentive Spirometry -Antibiotics: Azithromycin Abnormal lab findings revealing 2% blasts cells with an abnormal smear with reportedly significantly abnormal granulocytes per pathologist, patient with history of pancytopenia and iron deficiency anemia -Hematology following, appreciate further recommendations. -Repeat morning labs pending. Nicotine dependence -Patient received education on the importance of smoking cessation and the risks of continued use. -Nicorette gum, patient declined nicotine patch. CODE STATUS: Full code DVT prophylaxis: Heparin Discussed with: Patient and RN Anticipated discharge date: Clinical course to determine Anticipated discharge place: Home A total of 45 minutes was spent on the care of this complex patient more than 50% of the time was spent in counseling and care coordination. Objective - Vital Signs Vital signs: Vital Signs Temp 98.2 F 01/23/21 08:43 Pulse 110 H 01/23/21 09:26 Resp 18 01/23/21 08:43 BP 148/80 01/23/21 08:43 Pulse Ox 92 L 01/23/21 08:43 Intake & Output 01/22/21 01/23/21 01/23/21 18:59 06:59 18:59 Intake Total 236 Balance 236 Weight 54.431 kg Intake: Oral 236 Other: Voiding Method Toilet # Voids 3 1 - Labs CBC & Chem 7: 01/23/21 07:15 01/23/21 07:15 Labs: Abnormal Lab Results - Last 24 Hours (Table) 01/21/21 01/22/21 Range/Units 22:28 04:50 WBC 2.88 L (4.50-10.00) X 10*3/uL RBC 3.67 L 3.47 L (3.80-5.40) m/uL Hgb 9.6 L 9.1 L (11.4-16.0) gm/dL Hct 33.1 L 31.5 L (34.0-46.0) % MCH 26.2 L (27.0-32.0) pg MCHC 29.0 L 28.9 L (31.0-37.0) g/dL RDW 25.8 H 27.6 H (11.5-15.5) % Plt Count Comment A Absolute Nucleated RBC 0.16 H (0.00-0.00) X 10*3/uL Blast Cells % 2 H* % Metamyelocytes # (Man) 0.13 H (0) k/uL Blast Cells # (Man) 0.08 H (0) k/uL Nucleated RBCs 3 H (0-0) /100 WBC NRBC/100 WBC Diff 5.6 H (0.0-0.0) /100 WBCS Pathologist Review See comment A <Bing Aggarwal - Last Filed: 01/23/21 18:57> Subjective Ryder Tobar NP rendered care for this patient independently, reviewed the findings and plan as documented in the note above. I did not physically speak with or examine the patient on this date. Recommended IV iron on 01/22 and patient refused Case discussed with Dr. Briceno at length. 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 Patient will continue to be followed closely to ensure no other component. Continue with current care Objective - Vital Signs Vital signs: Vital Signs Temp 98.6 F 01/23/21 15:58 Pulse 110 H 01/23/21 16:48 Resp 18 01/23/21 15:58 BP 121/66 01/23/21 15:58 Pulse Ox 96 01/23/21 15:58 Intake & Output 01/22/21 01/23/21 01/23/21 18:59 06:59 18:59 Intake Total 236 500 Balance 236 500 Weight 54.431 kg Intake: Oral 236 500 Other: Voiding Method Toilet Toilet # Voids 3 1 2 - Labs CBC & Chem 7: 01/23/21 07:15 01/23/21 07:15 Labs: Abnormal Lab Results - Last 24 Hours (Table) 01/22/21 01/23/21 01/23/21 Range/Units 04:50 06:00 07:15 RBC 3.53 L (4.10-5.20) X 10*6/uL Hgb 9.2 L (12.0-15.0) g/dL Hct 32.6 L (37.2-46.3) % MCH 26.1 L (27.0-32.0) pg MCHC 28.2 L (32.0-37.0) g/dL RDW 27.9 H (11.5-14.5) % Absolute Nucleated RBC 0.20 H (0.00-0.00) X 10*3/uL Lymphocytes # (Manual) 0.46 L (0.90-5.00) X 10*3/uL Monocytes # (Manual) 0.13 L (0.20-1.00) X 10*3/uL Eosinophils # (Manual) 0 L (0.04-0.35) X 10*3/uL NRBC/100 WBC Diff 3.1 H (0.0-0.0) /100 WBCS Retic Count 6.84 H (0.10-1.80) % BUN/Creatinine Ratio (12.00-20.00) Ratio Glucose (70-110) mg/dL Lactate Dehydrogenase (313-618) U/L RBC Folate 955 H (280 - 791) ng/mL TSH (0.465-4.680) mIU/L 01/23/21 01/23/21 Range/Units 07:15 07:15 RBC (4.10-5.20) X 10*6/uL Hgb (12.0-15.0) g/dL Hct (37.2-46.3) % MCH (27.0-32.0) pg MCHC (32.0-37.0) g/dL RDW (11.5-14.5) % Absolute Nucleated RBC (0.00-0.00) X 10*3/uL Lymphocytes # (Manual) (0.90-5.00) X 10*3/uL Monocytes # (Manual) (0.20-1.00) X 10*3/uL Eosinophils # (Manual) (0.04-0.35) X 10*3/uL NRBC/100 WBC Diff (0.0-0.0) /100 WBCS Retic Count (0.10-1.80) % BUN/Creatinine Ratio 31.67 H (12.00-20.00) Ratio Glucose 137 H (70-110) mg/dL Lactate Dehydrogenase 1022 H (313-618) U/L RBC Folate (280 - 791) ng/mL TSH 0.207 L (0.465-4.680) mIU/L
--- NOTE | 2021-01-23 18:04 | P.PN ---
Subjective Progress Note Date: 01/23/21 Principal diagnosis: Dyspnea, COPD 60-year-old female patient with known history of COPD and chronic smoking, who developed symptoms of URI few days back and ultimately she became progressively more short of breath cough and congestion got worse and the patient started having worsening rest of her symptoms. For that reason she [facility] she was referred to the hospital for hospitalization for an underlying COPD exacerbation. Note that the patient has taken COVID-19 vaccination 1 and she has not completed her vaccination completely. Nevertheless, her COVID-19 testing came back negative. Her chest x-ray was consistent with COPD with hyperinflation and there is no evidence of any airspace disease or pneumonia. No fever. No chills. No pleurisy. No chest pain. No swelling in lower extremities. She has history of [id number] smoking history. She has history of pancytopenia and the patient has been managed by Dr. Pathak. Her white cell count currently is at 2.8 with hemoglobin of 9.1. She has under 1 GI workup including colonoscopy and EGD and she was found to have some iron deficiency replaced by iron and her hemoglobin currently is up to 9.1. Platelet count was as low as 80 and currently is up to 182. The Baseline spirometry was done in our office showed an FEV1 of 35% of predicted. The diffusion capacity was down to 29% of predicted and this is based on the pulmonary function test that was done on 08/07/2020. She is maintenance Spiriva and albuterol HFA as needed on outpatient basis. The blood gases during this current admission showed a pH of 7.43 with a pCO2 of 39 and pO2 of 90 and this was done and FiO2 of 28%. Her total serum iron was 17. Her proBNP level was 189. Troponin was negative. On 01/23/2021 patient seen in follow-up on medical surgical floor, she is sitting up by the window, in no acute distress, she states she is breathing easier today, feeling better, she is on 3 L of oxygen and pulse ox of 96%, hemodynamically she has been stable, she has had no fever or chills. Her COVID- 19 test was negative, her chest x-ray showed some small linear density at the left mid lung consistent with scarring or subsegmental atelectasis. Patient remains on nebulized bronchodilators in the form of DuoNeb, she is on IV steroids Solu-Medrol 61 g every 6 hours, she is on azithromycin. Clinically im proving. Objective - Vital Signs Vital signs: Vital Signs Temp 98.6 F 01/23/21 15:58 Pulse 110 H 01/23/21 16:48 Resp 18 01/23/21 15:58 BP 121/66 01/23/21 15:58 Pulse Ox 96 01/23/21 15:58 Intake & Output 01/22/21 01/23/21 01/23/21 18:59 06:59 18:59 Intake Total 236 500 Balance 236 500 Weight 54.431 kg Intake: Oral 236 500 Other: Voiding Method Toilet Toilet # Voids 3 1 2 - Exam GENERAL EXAM: Alert, very pleasant, 60-year-old white female, 3 L of oxygen pulse ox of 96% comfortable in no apparent distress. HEAD: Normocephalic/atraumatic. EYES: Normal reaction of pupils, equal size. Conjunctiva pink, sclera white. NOSE: Clear with pink turbinates. THROAT: No erythema or exudates. NECK: No masses, no JVD, no thyroid enlargement, no adenopathy. CHEST: No chest wall deformity. Symmetrical expansion. LUNGS: Equal air entry with diminished breath sounds CVS: Regular rate and rhythm, normal S1 and S2, no gallops, no murmurs, no rubs ABDOMEN: Soft, nontender. No hepatosplenomegaly, normal bowel sounds, no guarding or rigidity. EXTREMITIES: No clubbing, no edema, no cyanosis, 2+ pulses and upper and lower extremities. MUSCULOSKELETAL: Muscle strength and tone normal. SPINE: No scoliosis or deformity SKIN: No rashes CENTRAL NERVOUS SYSTEM: Alert and oriented -3. No focal deficits, tone is normal in all 4 extremities. PSYCHIATRIC: Alert and oriented -3. Appropriate affect. Intact judgment and insight. - Labs CBC & Chem 7: 01/23/21 07:15 01/23/21 07:15 Labs: Abnormal Lab Results - Last 24 Hours (Table) 01/22/21 01/23/21 01/23/21 Range/Units 04:50 07:15 07:15 RBC 3.53 L (4.10-5.20) X 10*6/uL Hgb 9.2 L (12.0-15.0) g/dL Hct 32.6 L (37.2-46.3) % MCH 26.1 L (27.0-32.0) pg MCHC 28.2 L (32.0-37.0) g/dL RDW 27.9 H (11.5-14.5) % Absolute Nucleated RBC 0.20 H (0.00-0.00) X 10*3/uL Lymphocytes # (Manual) 0.46 L (0.90-5.00) X 10*3/uL Monocytes # (Manual) 0.13 L (0.20-1.00) X 10*3/uL Eosinophils # (Manual) 0 L (0.04-0.35) X 10*3/uL NRBC/100 WBC Diff 3.1 H (0.0-0.0) /100 WBCS BUN/Creatinine Ratio 31.67 H (12.00-20.00) Ratio Glucose 137 H (70-110) mg/dL Lactate Dehydrogenase (313-618) U/L RBC Folate 955 H (280 - 791) ng/mL TSH (0.465-4.680) mIU/L / Range/Units 07:15 RBC (4.10-5.20) X 10*6/uL Hgb (12.0-15.0) g/dL Hct (37.2-46.3) % MCH (27.0-32.0) pg MCHC (32.0-37.0) g/dL RDW (11.5-14.5) % Absolute Nucleated RBC (0.00-0.00) X 10*3/uL Lymphocytes # (Manual) (0.90-5.00) X 10*3/uL Monocytes # (Manual) (0.20-1.00) X 10*3/uL Eosinophils # (Manual) (0.04-0.35) X 10*3/uL NRBC/100 WBC Diff (0.0-0.0) /100 WBCS BUN/Creatinine Ratio (12.00-20.00) Ratio Glucose (70-110) mg/dL Lactate Dehydrogenase 1022 H (313-618) U/L RBC Folate (280 - 791) ng/mL TSH 0.207 L (0.465-4.680) mIU/L Assessment and Plan Plan: 1 Acute COPD exacerbation probably related to URI/bronchitis. No evidence of p neumonia at this point in time. Chest x-ray is free of any acute pulmonary infiltrates. 2 severe COPD with a baseline FEV1 of 34% of predicted maintenance Spiriva on outpatient basis in addition to albuterol HFA 3 chronic dyspnea secondary to above 4 COVID-19 vaccination 1 and the patient's COVID-19 by PCR came back negative 5 history of smoking 6 history of iron deficiency anemia 7 history of pancytopenia, platelet count is improved and the white cell count remains somewhat low Plan: Continue current medical treatment Continue nebulized bronchodilators Continue antibiotics continue IV Solu-Medrol Patient is improving Weaning FiO2 Increase activity as tolerated We'll reevaluate in another 24 hours I performed a history & physical examination of the patient and discussed their management with my nurse practitioner, Earnestine Choi. I reviewed the nurse practitioner's note and agree with the documented findings and plan of care. Lung sounds are positive for diminished breath sounds throughout the lung mccoy. The findings and the impression was discussed with the patient. I attest to the documentation by the nurse practitioner. Time with Patient: Less than 30
[2021-01-23 18:23] LABS: Reticulocyte % 6.84 % (0.10-1.80)
[2021-01-23 20:28] LABS: Protein, Total 6.9 g/dL (6.2-8.2)
[2021-01-23] MEDS: BUDESONIDE 0.25 MG/2 ML NEBU INHALATION SCH (20:40)
[2021-01-23] MEDS: FORMOTEROL FUMARATE 20 MCG/2 ML NEBU INHALATION SCH (20:41)
[2021-01-23] MEDS ORDERED: ACETAMINOPHEN TAB 325 MG TAB PO PRN (21:30)
--- NOTE | 2021-01-23 21:40 | P.CONS ---
History of Present Illness - Reason for Consult Consult date: 01/23/21 Abnormal CBC, Blasts on peripheral Requesting physician: Ryder Tobar - History of Present Illness Nirmala was originally referred to Dr. Pathak referred by Dr Baldwin for evaluation of Leukopenia/Neutropenia, Marcrocytosis and Thrombocytopenia. She denied knowledge of prior Hematologic abnormality, but CBC done March 2017 revealed very similar pattern with WBC of 3.9, Neut 0.9, HGB 15.5 with MCV of 109 and PLT of 81K. She stated feeling well and being fully active, denies any prior liver disease, admitted having heavy alcohol consumption in past (12 beers/day) up to 10 years ago, when she stated she quit. She smoked 1/2 PPD now, smoked 1 PPD for 40 years before. Denies anorexia or weight loss, no fever, chills or night sweats. 04/03/19: Feels very tired. Could not have MRI of liver (Copay too big, according to patient). 09/04/20: Was hospitalized at [facility] with severe anemia (HGB 4.7) > Colonoscopy/EGD > No definitive bleeding, given PRBC X 3 > started on oral iron (Slow FE) > well tolerated Last office visit was 10/02/20: Feels well, stronger, on iron (Slow Fe) daily. Her iron studies continue to show iron deficiency anemia, she apparently had an adverse reaction to faraheme in the past so she is very hesitant to proceed with IV iron, however she is either not adherent to taking or she is not absorbing therefore re-trial while in hospital with different preparation and premedication was discussed with patient and Dr. Briceno, will premedicate and administer tomorrow. CBC also revealed abnormalities in the differential with lymphocytopenia, and 2% peripher blasts. Review of Systems All systems: negative Constitutional: Reports as per HPI Past Medical History Past Medical History: No Reported History, COPD Additional Past Medical History / Comment(s): Pancytopenia, iron deficiency anemia, COPD History of Any Multi-Drug Resistant Organisms: None Reported Past Surgical History: No Surgical Hx Reported Additional Past Surgical History / Comment(s): tooth extraction Past Anesthesia/Blood Transfusion Reactions: No Reported Reaction Additional Past Anesthesia/Blood Transfusion Reaction / Comm: unknown family hx- pt is adopted Smoking Status: Current every day smoker - Past Family History Father History Unknown: Yes Additional Family Medical History / Comment(s): unknown, adopted at Mother History Unknown: Yes Additional Family Medical History / Comment(s): unknown, adopted at Medications and Allergies Home Medications Medication Instructions Recorded Confirmed Type Albuterol Inhaler [Ventolin Hfa 2 puff INHALATION RT-Q4H PRN 08/08/20 01/22/21 History Inhaler] Ferrous Sulfate [Slow Fe] 142 mg PO BID 08/19/20 01/22/21 History Benzonatate [Tessalon Perles] 100 mg PO Q6H PRN 01/22/21 01/22/21 History Tiotropium Orefield [Spiriva] 1 cap INHALATION RT-DAILY 01/22/21 01/22/21 History Allergies Allergy/AdvReac Type Severity Reaction Status Date / Time ferumoxytol Allergy Severe Rash/Hives Verified 01/22/21 07:13 Physical Exam Vitals: Vital Signs Temp Pulse Pulse Resp BP BP Pulse Ox 01/23/21 09:26 110 H 01/23/21 09:14 114 H 01/23/21 08:45 18 01/23/21 08:43 98.2 F 99 18 148/80 92 L 01/23/21 02:00 97.8 F 86 18 127/73 96 01/22/21 22:40 98.3 F 108 H 18 134/67 94 L 01/22/21 19:40 97.8 F 117 H 20 102/62 95 01/22/21 19:18 112 H 01/22/21 19:09 108 H 01/22/21 15:46 111 H 01/22/21 15:34 108 H 01/22/21 14:00 97.9 F 115 H 16 136/87 97 Intake and Output 01/22/21 01/23/21 01/23/21 22:59 06:59 14:59 Other: Voiding Method Toilet # Voids 3 1 - Constitutional General appearance: cooperative, no acute distress - EENT Eyes: EOMI, PERRLA ENT: NA/AT - Neck Neck: normal ROM - Respiratory Respiratory: bilateral: diminished - Cardiovascular Rhythm: regularly irregular - Gastrointestinal General gastrointestinal: normal bowel sounds, soft - Integumentary Integumentary: pale - Neurologic Neurologic: CNII-XII intact - Musculoskeletal Musculoskeletal: generalized weakness - Psychiatric Psychiatric: A&O x's 3, appropriate affect, intact judgment & insight Results CBC & Chem 7: 01/23/21 07:15 01/23/21 07:15 Labs: Abnormal Lab Results - Last 24 Hours (Table) 01/21/21 01/22/21 01/23/21 Range/Units 22:28 04:50 07:15 WBC 2.88 L (4.50-10.00) X 10*3/uL RBC 3.67 L 3.47 L (3.80-5.40) m/uL Hgb 9.6 L 9.1 L (11.4-16.0) gm/dL Hct 33.1 L 31.5 L (34.0-46.0) % MCH 26.2 L (27.0-32.0) pg MCHC 29.0 L 28.9 L (31.0-37.0) g/dL RDW 25.8 H 27.6 H (11.5-15.5) % Plt Count Comment A Absolute Nucleated RBC 0.16 H (0.00-0.00) X 10*3/uL Blast Cells % 2 H* % Metamyelocytes # (Man) 0.13 H (0) k/uL Blast Cells # (Man) 0.08 H (0) k/uL Nucleated RBCs 3 H (0-0) /100 WBC NRBC/100 WBC Diff 5.6 H (0.0-0.0) /100 WBCS Pathologist Review See comment A BUN/Creatinine Ratio 31.67 H (12.00-20.00) Ratio Glucose 137 H (70-110) mg/dL Chest x-ray: report reviewed Assessment and Plan (1) Microcytic anemia Current Visit: Yes Status: Acute Code(s): D50.9 - IRON DEFICIENCY ANEMIA, UNSPECIFIED SNOMED Code(s): 096825962 (2) COPD exacerbation Current Visit: Yes Status: Acute Code(s): J44.1 - CHRONIC OBSTRUCTIVE PULMONARY DISEASE W (ACUTE) EXACERBATION SNOMED Code(s): 820733782 (3) Leukopenia Current Visit: No Status: Acute Code(s): D72.819 - DECREASED WHITE BLOOD CELL COUNT, UNSPECIFIED SNOMED Code(s): 48679226 Plan: Bicytopenia work-up initiated Premedication prior to re-challenge with parental iron ordered and discussed in detail with patient Monitor CBC All other acute problems per Primary and pulmonary team Physician Attest: I have completed the full history and physical and agree with above dictation, dictated as a scribe.
[2021-01-24] MEDS: methylPREDNISolone SOD SUCCI 125 MG/2 ML VIAL IV SCH ×5 (00:15→23:41)
[2021-01-24] MEDS: HEPARIN SODIUM,PORCINE/PF 5,000 UNIT/0.5 ML SYRINGE SQ SCH ×4 (00:16→23:40)
[2021-01-24] MEDS: AZITHROMYCIN 500 MG in SODIUM CHLORIDE 0.9% 250 ML IVPB SCH (07:35)
[2021-01-24] MEDS: FERROUS SULFATE 325 MG TAB PO SCH (07:36)
[2021-01-24] MEDS: FORMOTEROL FUMARATE 20 MCG/2 ML NEBU INHALATION SCH ×2 (09:14→19:37)
[2021-01-24] MEDS: IPRATROPIUM-ALBUTEROL 3 ML NEB INHALATION SCH ×4 (09:14→19:37)
[2021-01-24] MEDS: BUDESONIDE 0.25 MG/2 ML NEBU INHALATION SCH ×2 (09:14→19:37)
[2021-01-24] MEDS: SODIUM FERRIC GLUCONAT-SUCROSE 125 MG in SODIUM CHLORIDE 0.9% 100 ML IVPB SCH (10:11)
[2021-01-24] MEDS: diphenhydrAMINE 50 MG/ML 1 ML VIAL IVP PRN (11:00)
--- NOTE | 2021-01-24 11:13 | P.PN ---
Subjective Progress Note Date: 01/24/21 Principal diagnosis: Dyspnea, COPD 60-year-old female patient with known history of COPD and chronic smoking, who developed symptoms of URI few days back and ultimately she became progressively more short of breath cough and congestion got worse and the patient started having worsening rest of her symptoms. For that reason she saw he was seen at [facility] and she was referred to the hospital for hospitalization for an underlying COPD exacerbation. Note that the patient has taken COVID-19 vaccination 1 and she has not completed her vaccination completely. Nevertheless, her COVID-19 testing came back negative. Her chest x-ray was consistent with COPD with hyperinflation and there is no evidence of any airspace disease or pneumonia. No fever. No chills. No pleurisy. No chest pain. No swelling in lower extremities. She has history of [id number] smoking history. She has history of pancytopenia and the patient has been managed by Dr. Pathak. Her white cell count currently is at 2.8 with hemoglobin of 9.1. She has under 1 GI workup including colonoscopy and EGD and she was found to have some iron deficiency replaced by iron and her hemoglobin currently is up to 9.1. Platelet count was as low as 80 and currently is up to 182. The Baseline spirometry was done in our office showed an FEV1 of 35% of predicted. The diffusion capacity was down to 29% of predicted and this is based on the pulmonary function test that was done on 08/07/2020. She is maintenance Spiriva and albuterol HFA as needed on outpatient basis. The blood gases during this current admission showed a pH of 7.43 with a pCO2 of 39 and pO2 of 90 and this was done and FiO2 of 28%. Her total serum iron was 17. Her proBNP level was 189. Troponin was negative. On 01/23/2021 patient seen in follow-up on medical surgical floor, she is sitting up by the window, in no acute distress, she states she is breathing easier today, feeling better, she is on 3 L of oxygen and pulse ox of 96%, hemodynamically she has been stable, she has had no fever or chills. Her COVID- 19 test was negative, her chest x-ray showed some small linear density at the left mid lung consistent with scarring or subsegmental atelectasis. Patient remains on nebulized bronchodilators in the form of DuoNeb, she is on IV steroids Solu-Medrol 61 g every 6 hours, she is on azithromycin. Clinically im proving. On today's evaluation on 01/24/2021 patient seen in follow-up on medical surgical floor. She is currently on room air, for home oxygen evaluation, her pulse ox is 88%, patient feels short of breath, and she is slightly tachycardic, with a rate of 121. Earlier today she was on 3 L of oxygen. She states she still coughing, and at times she is able to bring up some whitish colored phlegm . Lung sounds reveal diminished breath sounds, with no wheezing, no rhonchi, there is some bibasilar crackles. Patient is a shallow breather, with deep breathing her pulse ox does come up to 93%. No fevers overnight. Vital signs have been stable, patient has been ambulating to the bathroom. She remains on Solu-Medrol, nebulized, and antibiotics. She has been receiving iron transfusions, today's hemoglobin is 9.2. Objective - Vital Signs Vital signs: Vital Signs Temp 97.8 F 01/24/21 07:37 Pulse 103 H 01/24/21 09:40 Resp 18 01/24/21 07:37 BP 110/63 01/24/21 07:37 Pulse Ox 93 L 01/24/21 09:14 Intake & Output 01/23/21 01/24/21 01/24/21 18:59 06:59 18:59 Intake Total 500 Balance 500 Intake: Oral 500 Other: Voiding Method Toilet Toilet # Voids 2 4 - Exam GENERAL EXAM: Alert, very pleasant, 60-year-old white female, on room air, with a pulse ox of 88% comfortable in no apparent distress. HEAD: Normocephalic/atraumatic. EYES: Normal reaction of pupils, equal size. Conjunctiva pink, sclera white. NOSE: Clear with pink turbinates. THROAT: No erythema or exudates. NECK: No masses, no JVD, no thyroid enlargement, no adenopathy. CHEST: No chest wall deformity. Symmetrical expansion. LUNGS: Equal air entry with diminished breath sounds, some limited rales at the bases. CVS: Regular rate and rhythm, normal S1 and S2, no gallops, no murmurs, no rubs ABDOMEN: Soft, nontender. No hepatosplenomegaly, normal bowel sounds, no guarding or rigidity. EXTREMITIES: No clubbing, no edema, no cyanosis, 2+ pulses and upper and lower extremities. MUSCULOSKELETAL: Muscle strength and tone normal. SPINE: No scoliosis or deformity SKIN: No rashes CENTRAL NERVOUS SYSTEM: Alert and oriented -3. No focal deficits, tone is normal in all 4 extremities. PSYCHIATRIC: Alert and oriented -3. Appropriate affect. Intact judgment and insight. - Labs CBC & Chem 7: 01/23/21 07:15 01/23/21 07:15 Labs: Abnormal Lab Results - Last 24 Hours (Table) 01/22/21 01/23/21 01/23/21 Range/Units 04:50 06:00 07:15 RBC 3.53 L (4.10-5.20) X 10*6/uL Hgb 9.2 L (12.0-15.0) g/dL Hct 32.6 L (37.2-46.3) % MCH 26.1 L (27.0-32.0) pg MCHC 28.2 L (32.0-37.0) g/dL RDW 27.9 H (11.5-14.5) % Absolute Nucleated RBC 0.20 H (0.00-0.00) X 10*3/uL Lymphocytes # (Manual) 0.46 L (0.90-5.00) X 10*3/uL Monocytes # (Manual) 0.13 L (0.20-1.00) X 10*3/uL Eosinophils # (Manual) 0 L (0.04-0.35) X 10*3/uL NRBC/100 WBC Diff 3.1 H (0.0-0.0) /100 WBCS ESR 33 H (0-30) mm/Hr Retic Count 6.84 H (0.10-1.80) % BUN/Creatinine Ratio (12.00-20.00) Ratio Glucose (70-110) mg/dL Lactate Dehydrogenase (313-618) U/L RBC Folate 955 H (280 - 791) ng/mL TSH (0.465-4.680) mIU/L 01/23/21 01/23/21 Range/Units 07:15 07:15 RBC (4.10-5.20) X 10*6/uL Hgb (12.0-15.0) g/dL Hct (37.2-46.3) % MCH (27.0-32.0) pg MCHC (32.0-37.0) g/dL RDW (11.5-14.5) % Absolute Nucleated RBC (0.00-0.00) X 10*3/uL Lymphocytes # (Manual) (0.90-5.00) X 10*3/uL Monocytes # (Manual) (0.20-1.00) X 10*3/uL Eosinophils # (Manual) (0.04-0.35) X 10*3/uL NRBC/100 WBC Diff (0.0-0.0) /100 WBCS ESR (0-30) mm/Hr Retic Count (0.10-1.80) % BUN/Creatinine Ratio 31.67 H (12.00-20.00) Ratio Glucose 137 H (70-110) mg/dL Lactate Dehydrogenase 1022 H (313-618) U/L RBC Folate (280 - 791) ng/mL TSH 0.207 L (0.465-4.680) mIU/L Assessment and Plan Plan: 1 Acute COPD exacerbation probably related to URI/bronchitis. No evidence of pneumonia at this point in time. Chest x-ray is free of any acute pulmonary infiltrates. 2 severe COPD with a baseline FEV1 of 34% of predicted maintenance Spiriva on outpatient basis in addition to albuterol HFA 3 chronic dyspnea secondary to above 4 COVID-19 vaccination 1 and the patient's COVID-19 by PCR came back negative 5 history of smoking 6 history of iron deficiency anemia 7 history of pancytopenia, platelet count is improved and the white cell count remains somewhat low Plan: Patient is improving Vitals stable No fever or chills Obtain home oxygen assessment, patient may need home oxygen Iron transfusion is being administered Will continue current medical treatment Will follow I performed a history & physical examination of the patient and discussed their management with my nurse practitioner, Earnestine Choi. I reviewed the nurse practitioner's note and agree with the documented findings and plan of care. Lung sounds are positive for diminished breath sounds throughout the lung mccoy . The findings and the impression was discussed with the patient. I attest to the documentation by the nurse practitioner. Time with Patient: Less than 30
--- NOTE | 2021-01-24 14:40 | P.PN ---
<Ryder Tobar - Last Filed: 01/24/21 14:16> Subjective Progress Note Date: 01/24/21 Hospital course: Patient is a 60-year-old female with a past medical history of COPD, pancytope bull, iron deficiency anemia, and long-standing history of an current use of tobacco products smoking approximately half a pack to a pack of cigarettes daily. Patient presented to the emergency department on 01/21/21 with a chief complaint of shortness of breath, cough, and congestion beginning a few days ago and progressively worsening. 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 She was seen and fully evaluated in the emergency department. An EKG was completed showing sinus tachycardia at 122 bpm. Chest x-ray revealed hyperinflation and flattening diaphragm consistent with COPD. Covid 19 PCR was negative. Patient admitted under our services for acute COPD exacerbation along with consultation to pulmonology. CBC with differential resulted in 2% blast cells with abnormal smear, hematology consult placed. 01/22/21: Patient was seen and fully evaluated at the bedside. She reports being a viral-like infection over the past 3 days consisting of clear runny nose and cough. Patient states that accompanied by this she developed progressively worsening shortness of breath and came to the emergency department because she felt she needed an antibiotic. Patient denies having any recent fevers, chills, headache, lightheadedness, dizziness, sore throat, chest pain, palpitations, abdominal pain, nausea, vomiting, or any changes in her urinary or bowel function. CBC with differential resulted in 2% blast cells with abnormal smear, hematology consult placed. 01/23/21: Patient seen and evaluated at bedside this morning. Patient resting comfortably in bed. She continues to have noted conversational dyspnea and remains on 3 L O2 via nasal cannula with SpO2 of 92%. Awaiting repeat a.m. labs to result. RBC folate resulted yesterday at 955. Patient currently reports slight improvement in her shortness of breath however stating significant shortness of breath with exertion, weakness, and cough. Patient denies having any headache, lightheadedness, dizziness, chest pain, palpitations, nausea, or vomiting. She has remained afebrile since admission. 01/24/21: Patient seen and evaluated at bedside this morning. Patient's respirations were even, regular, and unlabored. Lung sounds with improved and equal air entry and continued soft expiratory wheezes. Patient taken off of oxygen and remained with SpO2 of 93% on room air after 15 minutes. Later on in the morning,, patient began coughing and reporting shortness of breath/inability to catch her breath and was found to be 87% on room air requiring being placed back on 3L O2.. Patient receiving iron transfusion for treatment of her GERA. She continues to deny having any headache, lightheadedness, dizziness, chest pain, palpitations, nausea, or vomiting. Vital signs remained stable. Physical exam: Vital signs reviewed and stable. General: Nontoxic, no distress and appears stated age. Derm: Skin warm and dry, normal coloration for ethnicity. Head: Atraumatic, normocephalic and symmetric. Eyes: EOMs intact, no lid lag, and anicteric sclera Mouth: no lip lesions, mucus membranes moist Cardiovascular: regular rate and rhythm with normal S1S2, no murmur, positive posterior tibial pulses bilaterally, and cap refill < 2 seconds. Lungs: Respirations even, regular, and unlabored on 3 L O2 via nasal cannula. C onversational dyspnea noted. Lungs equal air entry with diffuse soft expiratory wheezes. No rhonchi, rales, or crackles noted. No accessory muscle usage. Abdominal: Soft, nontender to palpation, no guarding, no appreciable organomegaly. Ext: ROM intact. No gross muscle atrophy, no edema, no contractures. Neuro: Speech clear, face symmetrical and CN II-XII grossly intact with no noted focal neuro deficits. Psych: Alert and oriented to person, place, time, and situation. Appropriate and pleasant affect. Assessment and Plan of Care: Acute COPD exacerbation -Pulmonology following -Oxygenation to be administered and titrated as needed to maintain SPO2 equal to or greater than 92%. -Telemetry monitoring. -Solu-Medrol 60 mg IVP every 6 hours -Duonebs scheduled and as needed for SOB and/or wheezing -Incentive Spirometry -Antibiotics: Azithromycin Abnormal lab findings revealing 2% blasts cells with an abnormal smear with reportedly significantly abnormal granulocytes per pathologist -Hematology following, appreciate further recommendations. -Repeat morning labs pending. History of pancytopenia and Iron deficiency anemia -Iron 17, TIBC 309, iron saturation 5.50, and ferritin of 40.4. -Hemoglobin 9.2 -Pt to receive transfusion of Ferrlecit x 3 bags. -Hematology following. -Continue daily ferrous sulfate 325 mg Nicotine dependence -Patient received education on the importance of smoking cessation and the risks of continued use. -Nicorette gum, patient declined nicotine patch. CODE STATUS: Full code DVT prophylaxis: Heparin Discussed with: Patient and RN Anticipated discharge date: Clinical course to determine Anticipated discharge place: Home A total of 45 minutes was spent on the care of this complex patient more than 50% of the time was spent in counseling and care coordination. Objective - Vital Signs Vital signs: Vital Signs Temp 97.8 F 01/24/21 07:37 Pulse 78 01/24/21 07:37 Resp 18 01/24/21 07:37 BP 110/63 01/24/21 07:37 Pulse Ox 97 01/24/21 07:37 Intake & Output 01/23/21 01/24/21 01/24/21 18:59 06:59 18:59 Intake Total 500 Balance 500 Intake: Oral 500 Other: Voiding Method Toilet Toilet # Voids 2 4 - Labs CBC & Chem 7: 01/23/21 07:15 01/23/21 07:15 Labs: Abnormal Lab Results - Last 24 Hours (Table) 01/22/21 01/23/21 01/23/21 Range/Units 04:50 06:00 07:15 RBC 3.53 L (4.10-5.20) X 10*6/uL Hgb 9.2 L (12.0-15.0) g/dL Hct 32.6 L (37.2-46.3) % MCH 26.1 L (27.0-32.0) pg MCHC 28.2 L (32.0-37.0) g/dL RDW 27.9 H (11.5-14.5) % Absolute Nucleated RBC 0.20 H (0.00-0.00) X 10*3/uL Lymphocytes # (Manual) 0.46 L (0.90-5.00) X 10*3/uL Monocytes # (Manual) 0.13 L (0.20-1.00) X 10*3/uL Eosinophils # (Manual) 0 L (0.04-0.35) X 10*3/uL NRBC/100 WBC Diff 3.1 H (0.0-0.0) /100 WBCS ESR 33 H (0-30) mm/Hr Retic Count 6.84 H (0.10-1.80) % BUN/Creatinine Ratio (12.00-20.00) Ratio Glucose (70-110) mg/dL Lactate Dehydrogenase (313-618) U/L RBC Folate 955 H (280 - 791) ng/mL TSH (0.465-4.680) mIU/L 01/23/21 01/23/21 Range/Units 07:15 07:15 RBC (4.10-5.20) X 10*6/uL Hgb (12.0-15.0) g/dL Hct (37.2-46.3) % MCH (27.0-32.0) pg MCHC (32.0-37.0) g/dL RDW (11.5-14.5) % Absolute Nucleated RBC (0.00-0.00) X 10*3/uL Lymphocytes # (Manual) (0.90-5.00) X 10*3/uL Monocytes # (Manual) (0.20-1.00) X 10*3/uL Eosinophils # (Manual) (0.04-0.35) X 10*3/uL NRBC/100 WBC Diff (0.0-0.0) /100 WBCS ESR (0-30) mm/Hr Retic Count (0.10-1.80) % BUN/Creatinine Ratio 31.67 H (12.00-20.00) Ratio Glucose 137 H (70-110) mg/dL Lactate Dehydrogenase 1022 H (313-618) U/L RBC Folate (280 - 791) ng/mL TSH 0.207 L (0.465-4.680) mIU/L <Bing Aggarwal - Last Filed: 01/24/21 18:54> Subjective Patient seen and examined independently. Patient was also seen by Ryder Tobar NP and case was discussed. I am in agreement with subjective, physical exam, as sessment and plan as written above and amended below. Still with some shortness of breath and difficulty with ambulating. Still nervous about getting IV iron. We can discuss that she is premedicated with steroids, Benadryl, and is now getting her IV iron infusion. We discussed that she will get another dose in the morning. General: non toxic, no distress, appears at stated age Derm: Pale, warm, dry Head: atraumatic, normocephalic, symmetric Eyes: EOMI, no lid lag, anicteric sclera Mouth: no lip lesion, mucus membranes moist Cardiovascular: S1S2 reg, no murmur, positive posterior tibial pulse bilateral, Lungs: Wheezing bilateral, 3 were conversational dyspnea , no accessory muscle use Abdominal: soft, nontender to palpation, no guarding, no appreciable organomegaly Ext: no gross muscle atrophy, no edema, no contractures Neuro: CN II-XI grossly intact, no focal neuro deficits Psych: Alert, oriented, appropriate affect Objective - Vital Signs Vital signs: Vital Signs Temp 97.8 F 01/24/21 14:00 Pulse 113 H 01/24/21 15:50 Resp 16 01/24/21 14:00 BP 104/48 01/24/21 14:00 Pulse Ox 91 L 01/24/21 14:00 Intake & Output 01/23/21 01/24/21 01/24/21 18:59 06:59 18:59 Intake Total 500 250 Balance 500 250 Intake: Oral 500 250 Other: Voiding Method Toilet Toilet Toilet # Voids 2 4 1 - Labs CBC & Chem 7: 01/23/21 07:15 01/23/21 07:15 Labs: Abnormal Lab Results - Last 24 Hours (Table) 01/23/21 Range/Units 06:00 ESR 33 H (0-30) mm/Hr
--- NOTE | 2021-01-24 15:24 | P.PN ---
Subjective Progress Note Date: 01/24/21 The patient denies any new complaints. She continues to have some generalized weakness. She tolerated IV iron infusion with ferrelcit #1 well. No obvious bleeding. No fevers or chills Objective - Vital Signs Vital signs: Vital Signs Temp 97.8 F 01/24/21 07:37 Pulse 109 H 01/24/21 12:49 Resp 18 01/24/21 09:45 BP 110/63 01/24/21 07:37 Pulse Ox 93 L 01/24/21 09:14 Intake & Output 01/23/21 01/24/21 01/24/21 18:59 06:59 18:59 Intake Total 500 250 Balance 500 250 Intake: Oral 500 250 Other: Voiding Method Toilet Toilet Toilet # Voids 2 4 - Constitutional General appearance: Present: no acute distress - EENT Eyes: Present: EOMI ENT: Present: hearing grossly normal, normal oropharynx - Respiratory Respiratory: bilateral: CTA - Cardiovascular Rhythm: regular Heart sounds: normal: S1, S2 - Gastrointestinal General gastrointestinal: Present: normal bowel sounds, soft - Integumentary Integumentary: Present: normal - Neurologic Neurologic: Present: CNII-XII intact - Musculoskeletal Musculoskeletal: Present: generalized weakness, strength equal bilaterally - Psychiatric Psychiatric: Present: A&O x's 3, appropriate affect - Labs CBC & Chem 7: 01/23/21 07:15 01/23/21 07:15 Labs: Abnormal Lab Results - Last 24 Hours (Table) 01/23/21 Range/Units 06:00 ESR 33 H (0-30) mm/Hr Retic Count 6.84 H (0.10-1.80) % Assessment and Plan (1) Microcytic anemia Narrative/Plan: Labs were quite consistent with iron deficiency. This was extensively discussed with the admitting service and subsequently with the patient. She was on oral iron once a day but had not shown any response at all she was advised that in this situation it is unlikely that she would have an optimal response even with increasing the dose. In addition does increase would have higher risk for adverse events. The patient was initially very reluctant to take IV and she had apparently had reaction to Feraheme. It was discussed in detail with her that other iron preparations are different chemically, and the risk of having any cross-reaction with a different preparation would be extremely low. The patient was ultimately agreeable to try ferrelcit inpatient with premedication. - The patient has tolerated infusion #1 well. 2 additional infusions have been ordered. 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 During this admission there was concern for left shift and hypolobated granulocytes. It is felt that this was more likely a transient reactive phenomenon due to underlying dysplastic marrow subjected to increased reactive stress from her iron deficiency anemia . Her differential already shows improvement today. Continue to monitor as output. If this continues to be persistent/progressive despite adequate iron supplementation and the patient will need additional workup such as bone marrow aspiration biopsy as an outpatient Current Visit: No Status: Acute Code(s): D61.818 - OTHER PANCYTOPENIA SNOMED Code(s): 563375301
[2021-01-25] MEDS: methylPREDNISolone SOD SUCCI 125 MG/2 ML VIAL IV SCH ×3 (05:00→17:37)
[2021-01-25] MEDS: HEPARIN SODIUM,PORCINE/PF 5,000 UNIT/0.5 ML SYRINGE SQ SCH ×2 (07:08→17:37)
[2021-01-25] MEDS: FERROUS SULFATE 325 MG TAB PO SCH (07:08)
[2021-01-25] MEDS: BUDESONIDE 0.25 MG/2 ML NEBU INHALATION SCH ×2 (07:30→19:50)
[2021-01-25] MEDS: FORMOTEROL FUMARATE 20 MCG/2 ML NEBU INHALATION SCH (07:31)
[2021-01-25] MEDS: IPRATROPIUM-ALBUTEROL 3 ML NEB INHALATION SCH ×4 (07:31→19:50)
[2021-01-25] MEDS: diphenhydrAMINE 50 MG/ML 1 ML VIAL IVP PRN (09:33)
[2021-01-25] MEDS: SODIUM FERRIC GLUCONAT-SUCROSE 125 MG in SODIUM CHLORIDE 0.9% 100 ML IVPB SCH (09:36)
[2021-01-25 11:22] LABS: Anisocytosis (M) 3+; Basophils # (M) 0 X 10*3/uL (0.00-0.10); Eosinophils # (M) 0 X 10*3/uL (0.04-0.35); HCT 29.9 % (37.2-46.3); HGB 8.2 g/dL (12.0-15.0); Hypochromasia (M) 2+; Lymphocytes # (M) 0.17 X 10*3/uL (0.90-5.00); MCH 25.9 pg (27.0-32.0); MCHC 27.4 g/dL (32.0-37.0); MCV 94.3 fL (80.0-97.0); Macrocytosis (M) 2+; Metamyelocytes % 1 % (0-0); Monocytes # (M) 0.04 X 10*3/uL (0.20-1.00); Neutrophils # (M) 3.91 X 10*3/uL (2.00-8.90); Neutrophils % (M) 94 %; Platelet Count 151 X 10*3/uL (140-440); RBC 3.17 X 10*6/uL (4.10-5.20); RDW 28.8 % (11.5-14.5); Schistocytes 1+; WBC 4.16 X 10*3/uL (4.50-10.00)
--- NOTE | 2021-01-25 11:51 | P.PN ---
Subjective Progress Note Date: 01/25/21 60-year-old female patient with known history of COPD and chronic smoking, who developed symptoms of URI few days back and ultimately she became progressively more short of breath cough and congestion got worse and the patient started having worsening rest of her symptoms. For that reason she saw he was seen at [facility] and she was referred to the hospital for hospitalization for an underlying COPD exacerbation. Note that the patient has taken COVID-19 vaccination 1 and she has not completed her vaccination completely. Nevertheless, her COVID-19 testing came back negative. Her chest x-ray was consistent with COPD with hyperinflation and there is no evidence of any airspace disease or pneumonia. No fever. No chills. No pleurisy. No chest pain. No swelling in lower extremities. She has history of 60-rtpf-iffh smoking history. She has history of pancytopenia and the patient has been managed by Dr. Pathak. Her white cell count currently is at 2.8 with hemoglobin of 9.1. She has under 1 GI workup including colonoscopy and EGD and she was found to have some iron deficiency replaced by iron and her hemoglobin currently is up to 9.1. Platelet count was as low as 80 and currently is up to 182. The Baseline spirometry was done in our office showed an FEV1 of 35% of predicted. The diffusion capacity was down to 29% of predicted and this is based on the pulmonary function test that was done on 08/07/2020. She is maintenance Spiriva and albuterol HFA as needed on outpatient basis. The blood gases during this current admission showed a pH of 7.43 with a pCO2 of 39 and pO2 of 90 and this was done and FiO2 of 28%. Her total serum iron was 17. Her proBNP level was 189. Troponin was negative. On 01/23/2021 patient seen in follow-up on medical surgical floor, she is sitting up by the window, in no acute distress, she states she is breathing easier today, feeling better, she is on 3 L of oxygen and pulse ox of 96%, hemodynamically she has been stable, she has had no fever or chills. Her COVID- 19 test was negative, her chest x-ray showed some small linear density at the left mid lung consistent with scarring or subsegmental atelectasis. Patient remains on nebulized bronchodilators in the form of DuoNeb, she is on IV steroids Solu-Medrol 61 g every 6 hours, she is on azithromycin. Clinically improving. On today's evaluation on 01/24/2021 patient seen in follow-up on medical surgical floor. She is currently on room air, for home oxygen evaluation, her pulse ox is 88%, patient feels short of breath, and she is slightly tachycardic, with a rate of 121. Earlier today she was on 3 L of oxygen. She states she still coughing, and at times she is able to bring up some whitish colored phlegm. Lung sounds reveal diminished breath sounds, with no wheezing, no rhonchi, there is some bibasilar crackles. Patient is a shallow breather, with deep breathing her pulse ox does come up to 93%. No fevers overnight. Vital signs have been stable, patient has been ambulating to the bathroom. She remains on Solu-Medrol, nebulized, and antibiotics. She has been receiving iron transfusions, today's hemoglobin is 9.2. On 01/25/2021 I'm seeing this patient for a follow-up. Being treated for COPD exacerbation. She is slightly better. She didn't attempt to walk in the hallway without oxygen and she dropped her pulse ox down to 88% and she became quite weak and fatigued and short of breath. She remains on IV Solu-Medrol. She remains on bronchodilators [id number]. Objective - Vital Signs Vital signs: Vital Signs Temp 97.7 F 01/25/21 08:00 Pulse 79 01/25/21 11:31 Resp 19 01/25/21 08:30 BP 132/78 01/25/21 08:00 Pulse Ox 93 L 01/25/21 08:00 Intake & Output 01/24/21 01/25/21 01/25/21 18:59 06:59 18:59 Intake Total 250 200 Balance 250 200 Intake: Oral 250 200 Other: Voiding Method Toilet Toilet Toilet # Voids 1 2 - Exam GENERAL EXAM: Alert, very pleasant, 60-year-old white female, on room air, with a pulse ox of 88% comfortable in no apparent distress. HEAD: Normocephalic/atraumatic. EYES: Normal reaction of pupils, equal size. Conjunctiva pink, sclera white. NOSE: Clear with pink turbinates. THROAT: No erythema or exudates. NECK: No masses, no JVD, no thyroid enlargement, no adenopathy. CHEST: No chest wall deformity. Symmetrical expansion. LUNGS: Equal air entry with diminished breath sounds, some limited rales at the bases. CVS: Regular rate and rhythm, normal S1 and S2, no gallops, no murmurs, no rubs ABDOMEN: Soft, nontender. No hepatosplenomegaly, normal bowel sounds, no guarding or rigidity. EXTREMITIES: No clubbing, no edema, no cyanosis, 2+ pulses and upper and lower extremities. MUSCULOSKELETAL: Muscle strength and tone normal. SPINE: No scoliosis or deformity SKIN: No rashes CENTRAL NERVOUS SYSTEM: Alert and oriented -3. No focal deficits, tone is normal in all 4 extremities. PSYCHIATRIC: Alert and oriented -3. Appropriate affect. Intact judgment and insight. - Labs CBC & Chem 7: 01/25/21 05:57 01/23/21 07:15 Labs: Abnormal Lab Results - Last 24 Hours (Table) 01/25/21 Range/Units 05:57 WBC 4.16 L (4.50-10.00) X 10*3/uL RBC 3.17 L (4.10-5.20) X 10*6/uL Hgb 8.2 L (12.0-15.0) g/dL Hct 29.9 L (37.2-46.3) % MCH 25.9 L (27.0-32.0) pg MCHC 27.4 L (32.0-37.0) g/dL RDW 28.8 H (11.5-14.5) % Absolute Nucleated RBC 0.08 H (0.00-0.00) X 10*3/uL Metamyelocytes % 1 H (0-0) % Lymphocytes # (Manual) 0.17 L (0.90-5.00) X 10*3/uL Monocytes # (Manual) 0.04 L (0.20-1.00) X 10*3/uL Eosinophils # (Manual) 0 L (0.04-0.35) X 10*3/uL NRBC/100 WBC Diff 1.9 H (0.0-0.0) /100 WBCS Assessment and Plan Plan: 1 Acute COPD exacerbation probably related to URI/bronchitis. No evidence of pneumonia at this point in time. Chest x-ray is free of any acute pulmonary infiltrates. 2 severe COPD with a baseline FEV1 of 34% of predicted maintenance Spiriva on outpatient basis in addition to albuterol HFA 3 chronic dyspnea secondary to above 4 COVID-19 vaccination 1 and the patient's COVID-19 by PCR came back negative 5 history of smoking 6 history of iron deficiency anemia 7 history of pancytopenia, platelet count is improved and the white cell count remains somewhat low Plan: Patient is improving covered he is slow, she is having some shakiness hours Perforomist and we may discontinue the medication if the side effects become quite disturbing. Otherwise, we are going to keep her on IV Solu-Medrol. We'll reevaluate her oxygenation again tomorrow. She had a walk test today and she desaturated down to 88% on room air saturation became quite short of breath. Oncology hematology has already seen the patient. We'll continue to follow
[2021-01-25 12:35] LABS: African American GFR (CKD) 121.1 (60.0-200.0); Anion Gap 6.2 mmol/L (4.00-12.00); Calcium 8.8 mg/dL (8.7-10.3); Carbon Dioxide 25.8 mmol/L (21.6-31.8); Magnesium 2.3 mg/dL (1.5-2.4); Non-African American GFR(CKD) 104.5 (60.0-200.0); Potassium 5.1 mmol/L (3.5-5.5)
[2021-01-25 12:59] LABS: Free Kappa Lt Chain Qnt, Serum 1.09 mg/dL (0.33-1.94)
--- NOTE | 2021-01-25 13:04 | P.PN ---
<Ryder Tobar - Last Filed: 01/25/21 14:08> Subjective Progress Note Date: 01/25/21 Hospital course: Patient is a 60-year-old female with a past medical history of COPD, pancytope bull, iron deficiency anemia, and long-standing history of an current use of tobacco products smoking approximately half a pack to a pack of cigarettes daily. Patient presented to the emergency department on 01/21/21 with a chief complaint of shortness of breath, cough, and congestion beginning a few days ago and progressively worsening. 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 She was seen and fully evaluated in the emergency department. An EKG was completed showing sinus tachycardia at 122 bpm. Chest x-ray revealed hyperinflation and flattening diaphragm consistent with COPD. Covid 19 PCR was negative. Patient admitted under our services for acute COPD exacerbation along with consultation to pulmonology. CBC with differential resulted in 2% blast cells with abnormal smear, hematology consult placed. 01/22/21: Patient was seen and fully evaluated at the bedside. She reports being a viral-like infection over the past 3 days consisting of clear runny nose and cough. Patient states that accompanied by this she developed progressively worsening shortness of breath and came to the emergency department because she felt she needed an antibiotic. Patient denies having any recent fevers, chills, headache, lightheadedness, dizziness, sore throat, chest pain, palpitations, abdominal pain, nausea, vomiting, or any changes in her urinary or bowel function. CBC with differential resulted in 2% blast cells with abnormal smear, hematology consult placed. 01/23/21: Patient seen and evaluated at bedside this morning. Patient resting comfortably in bed. She continues to have noted conversational dyspnea and remains on 3 L O2 via nasal cannula with SpO2 of 92%. Awaiting repeat a.m. labs to result. RBC folate resulted yesterday at 955. Patient currently reports slight improvement in her shortness of breath however stating significant shortness of breath with exertion, weakness, and cough. Patient denies having any headache, lightheadedness, dizziness, chest pain, palpitations, nausea, or vomiting. She has remained afebrile since admission. 01/24/21: Patient seen and evaluated at bedside this morning. Patient's respirations were even, regular, and unlabored. Lung sounds with improved and equal air entry and continued soft expiratory wheezes. Patient taken off of oxygen and remained with SpO2 of 93% on room air after 15 minutes. Later on in the morning,, patient began coughing and reporting shortness of breath/inability to catch her breath and was found to be 87% on room air requiring being placed back on 3L O2.. Patient receiving iron transfusion for treatment of her GERA. She continues to deny having any headache, lightheadedness, dizziness, chest pain, palpitations, nausea, or vomiting. Vital signs remained stable. 01/25/21: Patient seen and fully evaluated at the bedside this morning. She was walking back from the bathroom and was found to be significantly short of breath. Patient had very difficult time catching her breath and took greater than 5 minutes to recuperate from short walk. She remains on 2 L O2 SpO2 at time of assessment was 89%. Patient is scheduled to receive second dose of iron transfusion today. She remains on azithromycin, Pulmicort, scheduled DuoNeb along with as needed for shortness of breath and/or wheezing, and meth ylprednisone. Patient reports experiencing palpitations when she becomes significantly short of breath. She denies having any headache, lightheadedness, dizziness, chest pain, abdominal pain, nausea, or diaphoresis. Physical exam: Vital signs reviewed and stable. General: Nontoxic, no distress and appears stated age. Derm: Skin warm and dry, normal coloration for ethnicity. Head: Atraumatic, normocephalic and symmetric. Eyes: EOMs intact, no lid lag, and anicteric sclera Mouth: no lip lesions, mucus membranes moist Cardiovascular: regular rate and rhythm with normal S1S2, no murmur, positive posterior tibial pulses bilaterally, and cap refill < 2 seconds. Lungs: Respirations even, regular, and unlabored on 3 L O2 via nasal cannula. Conversational dyspnea noted. Lungs equal air entry with diffuse soft expiratory wheezes. No rhonchi, rales, or crackles noted. No accessory muscle usage. Abdominal: Soft, nontender to palpation, no guarding, no appreciable organomegaly. Ext: ROM intact. No gross muscle atrophy, no edema, no contractures. Neuro: Speech clear, face symmetrical and CN II-XII grossly intact with no noted focal neuro deficits. Psych: Alert and oriented to person, place, time, and situation. Appropriate and pleasant affect. Assessment and Plan of Care: Acute COPD exacerbation -Pulmonology following -Oxygenation to be administered and titrated as needed to maintain SPO2 equal to or greater than 92%. -Telemetry monitoring. -Solu-Medrol 60 mg IVP every 6 hours -Duonebs scheduled and as needed for SOB and/or wheezing -Incentive Spirometry -Antibiotics: Azithromycin Abnormal lab findings revealing 2% blasts cells with an abnormal smear with reportedly significantly abnormal granulocytes per pathologist -Hematology following, appreciate further recommendations. -Repeat morning labs pending. History of pancytopenia and Iron deficiency anemia -Iron 17, TIBC 309, iron saturation 5.50, and ferritin of 40.4. -Hemoglobin 9.2 -Pt to receive transfusion of Ferrlecit x 3 bags. -Hematology following. -Continue daily ferrous sulfate 325 mg Nicotine dependence -Patient received education on the importance of smoking cessation and the risks of continued use. -Nicorette gum, patient declined nicotine patch. CODE STATUS: Full code DVT prophylaxis: Heparin Discussed with: Patient and RN Anticipated discharge date: Clinical course to determine Anticipated discharge place: Home A total of 45 minutes was spent on the care of this complex patient more than 50% of the time was spent in counseling and care coordination. Objective - Vital Signs Vital signs: Vital Signs Temp 97.7 F 01/25/21 08:00 Pulse 79 01/25/21 11:31 Resp 19 01/25/21 08:30 BP 132/78 01/25/21 08:00 Pulse Ox 93 L 01/25/21 08:00 Intake & Output 01/24/21 01/25/21 01/25/21 18:59 06:59 18:59 Intake Total 250 200 Balance 250 200 Intake: Oral 250 200 Other: Voiding Method Toilet Toilet Toilet # Voids 1 2 - Labs CBC & Chem 7: 01/25/21 05:57 01/25/21 05:57 Labs: Abnormal Lab Results - Last 24 Hours (Table) 01/23/21 01/25/21 01/25/21 Range/Units 07:15 05:57 05:57 WBC 4.16 L (4.50-10.00) X 10*3/uL RBC 3.17 L (4.10-5.20) X 10*6/uL Hgb 8.2 L (12.0-15.0) g/dL Hct 29.9 L (37.2-46.3) % MCH 25.9 L (27.0-32.0) pg MCHC 27.4 L (32.0-37.0) g/dL RDW 28.8 H (11.5-14.5) % Absolute Nucleated RBC 0.08 H (0.00-0.00) X 10*3/uL Metamyelocytes % 1 H (0-0) % Lymphocytes # (Manual) 0.17 L (0.90-5.00) X 10*3/uL Monocytes # (Manual) 0.04 L (0.20-1.00) X 10*3/uL Eosinophils # (Manual) 0 L (0.04-0.35) X 10*3/uL NRBC/100 WBC Diff 1.9 H (0.0-0.0) /100 WBCS Haptoglobin 227.0 H (31.2-198.0) mg/dL Creatinine 0.5 L (0.6-1.5) mg/dL BUN/Creatinine Ratio 38.00 H (12.00-20.00) Ratio Glucose 120 H (70-110) mg/dL <Bing Aggarwal - Last Filed: 01/25/21 18:40> Subjective Patient seen and examined independently. Patient was also seen by Ryder Tobar NP and case was discussed. I am in agreement with subjective, physical exam, assessment and plan as written above and amended below. Patient tolerated her iron infusion well. She states she is still feeling short of breath. No nausea or vomiting. Got significantly short of breath when she was up and walking. General: non toxic, no distress, appears at stated age Derm: warm, dry Head: atraumatic, normocephalic, symmetric Eyes: EOMI, no lid lag, anicteric sclera Mouth: no lip lesion, mucus membranes moist Cardiovascular: S1S2 reg, no murmur, positive posterior tibial pulse bilateral, Lungs: Diffuse wheezing bilateral. , no accessory muscle use Psych: Alert, oriented, appropriate affect Objective - Vital Signs Vital signs: Vital Signs Temp 97.7 F 01/25/21 14:00 Pulse 82 01/25/21 16:53 Resp 18 01/25/21 14:00 BP 135/71 01/25/21 14:00 Pulse Ox 96 01/25/21 14:00 Intake & Output 01/24/21 01/25/21 01/25/21 18:59 06:59 18:59 Intake Total 613 169 7909 Balance 222 715 9028 Intake: Oral 282 525 3826 Other: Voiding Method Toilet Toilet Toilet # Voids 1 2 3 - Labs CBC & Chem 7: 01/25/21 05:57 01/25/21 14:21 Labs: Abnormal Lab Results - Last 24 Hours (Table) 01/23/21 01/25/21 01/25/21 Range/Units 07:15 05:57 05:57 WBC 4.16 L (4.50-10.00) X 10*3/uL RBC 3.17 L (4.10-5.20) X 10*6/uL Hgb 8.2 L (12.0-15.0) g/dL Hct 29.9 L (37.2-46.3) % MCH 25.9 L (27.0-32.0) pg MCHC 27.4 L (32.0-37.0) g/dL RDW 28.8 H (11.5-14.5) % Absolute Nucleated RBC 0.08 H (0.00-0.00) X 10*3/uL Metamyelocytes % 1 H (0-0) % Lymphocytes # (Manual) 0.17 L (0.90-5.00) X 10*3/uL Monocytes # (Manual) 0.04 L (0.20-1.00) X 10*3/uL Eosinophils # (Manual) 0 L (0.04-0.35) X 10*3/uL NRBC/100 WBC Diff 1.9 H (0.0-0.0) /100 WBCS Haptoglobin 227.0 H (31.2-198.0) mg/dL Sodium (137-145) mmol/L Creatinine 0.5 L (0.6-1.5) mg/dL BUN/Creatinine Ratio 38.00 H (12.00-20.00) Ratio Glucose 120 H (70-110) mg/dL 01/25/21 Range/Units 14:21 WBC (4.50-10.00) X 10*3/uL RBC (4.10-5.20) X 10*6/uL Hgb (12.0-15.0) g/dL Hct (37.2-46.3) % MCH (27.0-32.0) pg MCHC (32.0-37.0) g/dL RDW (11.5-14.5) % Absolute Nucleated RBC (0.00-0.00) X 10*3/uL Metamyelocytes % (0-0) % Lymphocytes # (Manual) (0.90-5.00) X 10*3/uL Monocytes # (Manual) (0.20-1.00) X 10*3/uL Eosinophils # (Manual) (0.04-0.35) X 10*3/uL NRBC/100 WBC Diff (0.0-0.0) /100 WBCS Haptoglobin (31.2-198.0) mg/dL Sodium 135 L (137-145) mmol/L Creatinine 0.48 L (0.6-1.5) mg/dL BUN/Creatinine Ratio (12.00-20.00) Ratio Glucose 149 H (70-110) mg/dL
[2021-01-25] MEDS: AZITHROMYCIN 500 MG TAB PO SCH (13:15)
[2021-01-25 14:42] LABS: African American GFR (CKD) >90 (>60 ml/min/1.73 sqM); Anion Gap 8 mmol/L; Blood Urea Nitrogen 16 mg/dL (7-17); Calcium 8.9 mg/dL (8.4-10.2); Carbon Dioxide 24 mmol/L (22-30); Chloride 103 mmol/L (98-107); Glucose 149 mg/dL (74-99); Non-African American GFR(CKD) >90 (>60 ml/min/1.73 sqM); Potassium 4.2 mmol/L (3.5-5.1); Sodium 135 mmol/L (137-145)
[2021-01-25 18:46] LABS: Reticulocyte % 7.9 % (0.5-2.0)
[2021-01-25 22:57] LABS: % Iron Saturation 110.67 (12.00-45.00); Iron 332 ug/dL (50-170); Total Iron Binding Capacity 300 ug/dL (228-460)
[2021-01-25 23:06] LABS: Ferritin 121.3 ng/mL (10.0-291.0)
[2021-01-25 23:30] LABS: Folate, Serum 8.5 ng/mL
[2021-01-26] MEDS: methylPREDNISolone SOD SUCCI 125 MG/2 ML VIAL IV SCH ×3 (00:17→12:12)
[2021-01-26] MEDS: HEPARIN SODIUM,PORCINE/PF 5,000 UNIT/0.5 ML SYRINGE SQ SCH ×3 (00:18→09:35)
[2021-01-26] MEDS: IPRATROPIUM-ALBUTEROL 3 ML NEB INHALATION SCH ×4 (07:40→19:55)
[2021-01-26] MEDS: BUDESONIDE 0.25 MG/2 ML NEBU INHALATION SCH (07:40)
[2021-01-26] MEDS: diphenhydrAMINE 50 MG/ML 1 ML VIAL IVP PRN (09:30)
[2021-01-26] MEDS: SODIUM FERRIC GLUCONAT-SUCROSE 125 MG in SODIUM CHLORIDE 0.9% 100 ML IVPB SCH (09:30)
[2021-01-26] MEDS: FERROUS SULFATE 325 MG TAB PO SCH (09:30)
--- NOTE | 2021-01-26 11:01 | P.PN ---
<Ryder Tobar - Last Filed: 01/26/21 10:50> Subjective Progress Note Date: 01/26/21 Hospital course: Patient is a 60-year-old female with a past medical history of COPD, pancytope bull, iron deficiency anemia, and long-standing history of an current use of tobacco products smoking approximately half a pack to a pack of cigarettes daily. Patient presented to the emergency department on 01/21/21 with a chief complaint of shortness of breath, cough, and congestion beginning a few days ago and progressively worsening. 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 She was seen and fully evaluated in the emergency department. An EKG was completed showing sinus tachycardia at 122 bpm. Chest x-ray revealed hyperinflation and flattening diaphragm consistent with COPD. Covid 19 PCR was negative. Patient admitted under our services for acute COPD exacerbation along with consultation to pulmonology. CBC with differential resulted in 2% blast cells with abnormal smear, hematology consult placed. 01/22/21: Patient was seen and fully evaluated at the bedside. She reports being a viral-like infection over the past 3 days consisting of clear runny nose and cough. Patient states that accompanied by this she developed progressively worsening shortness of breath and came to the emergency department because she felt she needed an antibiotic. Patient denies having any recent fevers, chills, headache, lightheadedness, dizziness, sore throat, chest pain, palpitations, abdominal pain, nausea, vomiting, or any changes in her urinary or bowel function. CBC with differential resulted in 2% blast cells with abnormal smear, hematology consult placed. 01/23/21: Patient seen and evaluated at bedside this morning. Patient resting comfortably in bed. She continues to have noted conversational dyspnea and remains on 3 L O2 via nasal cannula with SpO2 of 92%. Awaiting repeat a.m. labs to result. RBC folate resulted yesterday at 955. Patient currently reports slight improvement in her shortness of breath however stating significant shortness of breath with exertion, weakness, and cough. Patient denies having any headache, lightheadedness, dizziness, chest pain, palpitations, nausea, or vomiting. She has remained afebrile since admission. 01/24/21: Patient seen and evaluated at bedside this morning. Patient's respirations were even, regular, and unlabored. Lung sounds with improved and equal air entry and continued soft expiratory wheezes. Patient taken off of oxygen and remained with SpO2 of 93% on room air after 15 minutes. Later on in the morning,, patient began coughing and reporting shortness of breath/inability to catch her breath and was found to be 87% on room air requiring being placed back on 3L O2.. Patient receiving iron transfusion for treatment of her GERA. She continues to deny having any headache, lightheadedness, dizziness, chest pain, palpitations, nausea, or vomiting. Vital signs remained stable. 01/25/21: Patient seen and fully evaluated at the bedside this morning. She was walking back from the bathroom and was found to be significantly short of breath. Patient had very difficult time catching her breath and took greater than 5 minutes to recuperate from short walk. She remains on 2 L O2 SpO2 at time of assessment was 89%. Patient is scheduled to receive second dose of iron transfusion today. She remains on azithromycin, Pulmicort, scheduled DuoNeb along with as needed for shortness of breath and/or wheezing, and meth ylprednisone. Patient reports experiencing palpitations when she becomes significantly short of breath. She denies having any headache, lightheadedness, dizziness, chest pain, abdominal pain, nausea, or diaphoresis. 01/26/21: Patient seen and evaluated at bedside this morning she continues to have conversational dyspnea and reports persistent dyspnea with exertion. We will again reattempt home O2 evaluation later today. Patient scheduled to receive third dose of iron transfusion later today. Awaiting morning labs results. She remains on azithromycin, Pulmicort, scheduled DuoNeb along with as needed for shortness of breath and/or wheezing, and methylprednisone. She continues to deny having any headache, lightheadedness, dizziness, chest pain, a bdominal pain, nausea, or diaphoresis. Patient does have improvement noted with air entry throughout her lungs and appears to be able to take deeper breaths, but continues to have soft expiratory wheezes. Likely arrange for home O2 with plans for discharge tomorrow. Physical exam: Vital signs reviewed and stable. General: Nontoxic, no distress and appears stated age. Derm: Skin warm and dry, normal coloration for ethnicity. Head: Atraumatic, normocephalic and symmetric. Eyes: EOMs intact, no lid lag, and anicteric sclera Mouth: no lip lesions, mucus membranes moist Cardiovascular: regular rate and rhythm with normal S1S2, no murmur, positive posterior tibial pulses bilaterally, and cap refill < 2 seconds. Lungs: Respirations even, regular, and unlabored on 2 L O2 via nasal cannula. Conversational dyspnea noted. Lungs equal air entry with diffuse soft expiratory wheezes. No rhonchi, rales, or crackles noted. No accessory muscle usage. Abdominal: Soft, nontender to palpation, no guarding, no appreciable organomegaly. Ext: ROM intact. No gross muscle atrophy, no edema, no contractures. Neuro: Speech clear, face symmetrical and CN II-XII grossly intact with no noted focal neuro deficits. Psych: Alert and oriented to person, place, time, and situation. Appropriate and pleasant affect. Assessment and Plan of Care: Acute COPD exacerbation -Pulmonology following -Oxygenation to be administered and titrated as needed to maintain SPO2 equal to or greater than 92%. -Telemetry monitoring. -Solu-Medrol 60 mg IVP every 6 hours -Duonebs scheduled and as needed for SOB and/or wheezing -Incentive Spirometry -Antibiotics: Azithromycin Abnormal lab findings revealing 2% blasts cells with an abnormal smear with reportedly significantly abnormal granulocytes per pathologist -Hematology following, appreciate further recommendations. -Repeat morning labs pending. History of pancytopenia and Iron deficiency anemia -Iron 17, TIBC 309, iron saturation 5.50, and ferritin of 40.4. -Hemoglobin 9.2 -Pt to receive transfusion of Ferrlecit x 3 bags. -Hematology following. -Continue daily ferrous sulfate 325 mg Nicotine dependence -Patient received education on the importance of smoking cessation and the risks of continued use. -Nicorette gum, patient declined nicotine patch. CODE STATUS: Full code DVT prophylaxis: Heparin Discussed with: Patient and RN Anticipated discharge date: Likely tomorrow, home O2 eval to be repeated Anticipated discharge place: Home A total of 45 minutes was spent on the care of this complex patient more than 50% of the time was spent in counseling and care coordination. Objective - Vital Signs Vital signs: Vital Signs Temp 97.5 F L 01/26/21 02:39 Pulse 70 01/26/21 07:56 Resp 16 01/26/21 02:39 BP 113/66 01/26/21 02:39 Pulse Ox 98 01/26/21 07:40 Intake & Output 01/25/21 01/26/21 01/26/21 18:59 06:59 18:59 Intake Total 1280 Balance 1280 Intake: Oral 1280 Other: Voiding Method Toilet Toilet # Voids 3 2 - Labs CBC & Chem 7: 01/25/21 05:57 01/25/21 14:21 Labs: Abnormal Lab Results - Last 24 Hours (Table) 01/23/21 01/25/21 01/25/21 Range/Units 07:15 05:57 05:57 WBC 4.16 L (4.50-10.00) X 10*3/uL RBC 3.17 L (4.10-5.20) X 10*6/uL Hgb 8.2 L (12.0-15.0) g/dL Hct 29.9 L (37.2-46.3) % MCH 25.9 L (27.0-32.0) pg MCHC 27.4 L (32.0-37.0) g/dL RDW 28.8 H (11.5-14.5) % Absolute Nucleated RBC 0.08 H (0.00-0.00) X 10*3/uL Metamyelocytes % 1 H (0-0) % Lymphocytes # (Manual) 0.17 L (0.90-5.00) X 10*3/uL Monocytes # (Manual) 0.04 L (0.20-1.00) X 10*3/uL Eosinophils # (Manual) 0 L (0.04-0.35) X 10*3/uL NRBC/100 WBC Diff 1.9 H (0.0-0.0) /100 WBCS Retic Count (0.5-2.0) % Haptoglobin 227.0 H (31.2-198.0) mg/dL Sodium (137-145) mmol/L Creatinine 0.5 L (0.6-1.5) mg/dL BUN/Creatinine Ratio 38.00 H (12.00-20.00) Ratio Glucose 120 H (70-110) mg/dL Iron (50-170) ug/dL % Saturation (12.00-45.00) 01/25/21 01/25/21 Range/Units 14:21 14:21 WBC (4.50-10.00) X 10*3/uL RBC (4.10-5.20) X 10*6/uL Hgb (12.0-15.0) g/dL Hct (37.2-46.3) % MCH (27.0-32.0) pg MCHC (32.0-37.0) g/dL RDW (11.5-14.5) % Absolute Nucleated RBC (0.00-0.00) X 10*3/uL Metamyelocytes % (0-0) % Lymphocytes # (Manual) (0.90-5.00) X 10*3/uL Monocytes # (Manual) (0.20-1.00) X 10*3/uL Eosinophils # (Manual) (0.04-0.35) X 10*3/uL NRBC/100 WBC Diff (0.0-0.0) /100 WBCS Retic Count 7.9 H (0.5-2.0) % Haptoglobin (31.2-198.0) mg/dL Sodium 135 L (137-145) mmol/L Creatinine 0.48 L (0.6-1.5) mg/dL BUN/Creatinine Ratio (12.00-20.00) Ratio Glucose 149 H (70-110) mg/dL Iron 332 H (50-170) ug/dL % Saturation 110.67 H (12.00-45.00) <German Wellington - Last Filed: 01/26/21 15:58> Objective - Vital Signs Vital signs: Vital Signs Temp 97.9 F 01/26/21 14:00 Pulse 90 01/26/21 14:00 Resp 20 01/26/21 14:00 BP 148/66 01/26/21 14:00 Pulse Ox 90 L 01/26/21 14:00 Intake & Output 01/25/21 01/26/21 01/26/21 18:59 06:59 18:59 Intake Total 1280 Balance 1280 Intake: Oral 1280 Other: Voiding Method Toilet Toilet Toilet # Voids 3 2 - Labs CBC & Chem 7: 01/26/21 05:51 01/25/21 14:21 Labs: Abnormal Lab Results - Last 24 Hours (Table) 01/23/21 01/25/21 01/25/21 Range/Units 07:15 14:21 14:21 WBC (4.50-10.00) X 10*3/uL RBC (4.10-5.20) X 10*6/uL Hgb (12.0-15.0) g/dL Hct (37.2-46.3) % MCH (27.0-32.0) pg MCHC (32.0-37.0) g/dL RDW (11.5-14.5) % Absolute Nucleated RBC (0.00-0.00) X 10*3/uL Myelocytes % (0-0) % Lymphocytes # (Manual) (0.90-5.00) X 10*3/uL Monocytes # (Manual) (0.20-1.00) X 10*3/uL Eosinophils # (Manual) (0.04-0.35) X 10*3/uL NRBC/100 WBC Diff (0.0-0.0) /100 WBCS Retic Count 7.9 H (0.5-2.0) % Iron 332 H (50-170) ug/dL % Saturation 110.67 H (12.00-45.00) Albumin (PEP) 3.46 L (3.80-4.90) g/dL Slrzo-2-Kbujfmfoy 0.55 H (0.10-0.40) g/dL Irppx-7-Yxlpkgcbq 1.10 H (0.60-1.00) g/dL 01/26/21 Range/Units 05:51 WBC 3.89 L (4.50-10.00) X 10*3/uL RBC 3.17 L (4.10-5.20) X 10*6/uL Hgb 8.3 L (12.0-15.0) g/dL Hct 30.0 L (37.2-46.3) % MCH 26.2 L (27.0-32.0) pg MCHC 27.7 L (32.0-37.0) g/dL RDW 29.1 H (11.5-14.5) % Absolute Nucleated RBC 0.12 H (0.00-0.00) X 10*3/uL Myelocytes % 2 H (0-0) % Lymphocytes # (Manual) 0.74 L (0.90-5.00) X 10*3/uL Monocytes # (Manual) 0 L (0.20-1.00) X 10*3/uL Eosinophils # (Manual) 0 L (0.04-0.35) X 10*3/uL NRBC/100 WBC Diff 3.1 H (0.0-0.0) /100 WBCS Retic Count (0.5-2.0) % Iron (50-170) ug/dL % Saturation (12.00-45.00) Albumin (PEP) (3.80-4.90) g/dL Uiqzb-4-Qbqeeoavr (0.10-0.40) g/dL Kimxb-5-Sofdxiexl (0.60-1.00) g/dL Assessment and Plan Assessment: Patient seen and evaluated by me independently. Patient was also seen by ELLIOTT, the original author of this note. I am in agreement with the subjective, physical exam, and assessment and plan as documented with the addition/changes of my exam and assessment below. Gen: awake, alert HEENT: normocephalic, atraumatic, good hearing acuity, moist mucous membranes Resp: good air exchange, breathing comfortably with no accessory muscle use CVS: good distal perfusion x 4, GI: soft, NTTP, ND : no SPT, no CVAT, genao catheter not present MSK: no pitting edema, no clubbing Neuro: non-focal, moving all extremities Psych: cooperative, euthymic mood Plan: Continue with nebulizer therapy Evaluated for home oxygen Likely discharge tomorrow
[2021-01-26] MEDS: AZITHROMYCIN 500 MG TAB PO SCH (12:10)
[2021-01-26 12:33] LABS: HGB 8.3 g/dL (12.0-15.0); MCH 26.2 pg (27.0-32.0); MCHC 27.7 g/dL (32.0-37.0); MCV 94.6 fL (80.0-97.0); Platelet Count 141 X 10*3/uL (140-440); RBC 3.17 X 10*6/uL (4.10-5.20); RDW 29.1 % (11.5-14.5); WBC 3.89 X 10*3/uL (4.50-10.00)
[2021-01-26 12:34] LABS: Anisocytosis (M) 2+; Basophils # (M) 0 X 10*3/uL (0.00-0.10); Eosinophils # (M) 0 X 10*3/uL (0.04-0.35); Hypochromasia (M) 2+; Lymphocytes # (M) 0.74 X 10*3/uL (0.90-5.00); Macrocytosis (M) 2+; Monocytes # (M) 0 X 10*3/uL (0.20-1.00); Myelocytes % 2 % (0-0); Neutrophils # (M) 3.07 X 10*3/uL (2.00-8.90); Neutrophils % (M) 79 %; Polychromasia 2+
[2021-01-26 12:45] LABS: Albumin 3.46 g/dL (3.80-4.90); Gamma Globulin 1.06 g/dL (0.70-1.50)
[2021-01-26 14:26] VITALS: BP 148/66; RESP 20; TEMP 97.9
--- NOTE | 2021-01-26 16:08 | P.PN ---
Subjective Progress Note Date: 01/26/21 Principal diagnosis: Iron deficiency, ETOH marrow suppression In follow-up today patient has no complaints, she is tolerating IV iron well with the addition of premeds. She already has her followed up scheduled with Hematology later this month. Objective - Vital Signs Vital signs: Vital Signs Temp 97.9 F 01/26/21 14:00 Pulse 90 01/26/21 14:00 Resp 20 01/26/21 14:00 BP 148/66 01/26/21 14:00 Pulse Ox 90 L 01/26/21 14:00 Intake & Output 01/25/21 01/26/21 01/26/21 18:59 06:59 18:59 Intake Total 1280 Balance 1280 Intake: Oral 1280 Other: Voiding Method Toilet Toilet Toilet # Voids 3 2 - Constitutional General appearance: Present: average body habitus, cooperative, no acute distress - EENT Eyes: Present: anicteric sclerae, EOMI ENT: Present: hearing grossly normal - Respiratory Respiratory: bilateral: CTA - Cardiovascular Heart sounds: normal: S1, S2 Abnormal Heart Sounds: Absent: systolic murmur, diastolic murmur, rub, S3 Gal lop, S4 Gallop, click, other - Peripheral edema foot Peripheral Edema: bilateral: None - Gastrointestinal General gastrointestinal: Present: normal bowel sounds, soft - Neurologic Neurologic: Present: CNII-XII intact - Musculoskeletal Musculoskeletal: Present: strength equal bilaterally - Psychiatric Psychiatric: Present: A&O x's 3, appropriate affect, intact judgment & insight - Labs CBC & Chem 7: 01/26/21 05:51 01/25/21 14:21 Labs: Abnormal Lab Results - Last 24 Hours (Table) 01/23/21 01/25/21 01/25/21 Range/Units 07:15 14:21 14:21 WBC (4.50-10.00) X 10*3/uL RBC (4.10-5.20) X 10*6/uL Hgb (12.0-15.0) g/dL Hct (37.2-46.3) % MCH (27.0-32.0) pg MCHC (32.0-37.0) g/dL RDW (11.5-14.5) % Absolute Nucleated RBC (0.00-0.00) X 10*3/uL Myelocytes % (0-0) % Lymphocytes # (Manual) (0.90-5.00) X 10*3/uL Monocytes # (Manual) (0.20-1.00) X 10*3/uL Eosinophils # (Manual) (0.04-0.35) X 10*3/uL NRBC/100 WBC Diff (0.0-0.0) /100 WBCS Retic Count 7.9 H (0.5-2.0) % Iron 332 H (50-170) ug/dL % Saturation 110.67 H (12.00-45.00) Albumin (PEP) 3.46 L (3.80-4.90) g/dL Aznlo-0-Wpxfaswja 0.55 H (0.10-0.40) g/dL Pzkmn-3-Kowpqieet 1.10 H (0.60-1.00) g/dL 01/26/21 Range/Units 05:51 WBC 3.89 L (4.50-10.00) X 10*3/uL RBC 3.17 L (4.10-5.20) X 10*6/uL Hgb 8.3 L (12.0-15.0) g/dL Hct 30.0 L (37.2-46.3) % MCH 26.2 L (27.0-32.0) pg MCHC 27.7 L (32.0-37.0) g/dL RDW 29.1 H (11.5-14.5) % Absolute Nucleated RBC 0.12 H (0.00-0.00) X 10*3/uL Myelocytes % 2 H (0-0) % Lymphocytes # (Manual) 0.74 L (0.90-5.00) X 10*3/uL Monocytes # (Manual) 0 L (0.20-1.00) X 10*3/uL Eosinophils # (Manual) 0 L (0.04-0.35) X 10*3/uL NRBC/100 WBC Diff 3.1 H (0.0-0.0) /100 WBCS Retic Count (0.5-2.0) % Iron (50-170) ug/dL % Saturation (12.00-45.00) Albumin (PEP) (3.80-4.90) g/dL Wruql-4-Msmokxiuj (0.10-0.40) g/dL Kmrpo-7-Arghcqbvo (0.60-1.00) g/dL Assessment and Plan (1) Microcytic anemia Current Visit: Yes Status: Chronic Priority: Medium Code(s): D50.9 - IRON DEFICIENCY ANEMIA, UNSPECIFIED SNOMED Code(s): 859896453 (2) Pancytopenia Current Visit: Yes Status: Chronic Priority: Medium Code(s): D61.818 - OTHER PANCYTOPENIA SNOMED Code(s): 177572208 Plan: Patient has been worked up in the past for her pancytopenia. Overall her counts are stable. [place] that most likely related to EtOH marrow suppression. Labs show iron deficiency. Patient has a history of hives after iron infusion. With premedications, she has done very well, no signs or symptoms of hives or other complaints. Patient has follow-up with Dr. Pathak already scheduled. She will keep this plan. He will continue her on appropriate follow-up to keep track of her counts and iron.
[2021-01-26 16:23] VITALS: PULSE 88
--- NOTE | 2021-01-26 16:31 | P.PN ---
Subjective Progress Note Date: 01/26/21 Principal diagnosis: Dyspnea, COPD 60-year-old female patient with known history of COPD and chronic smoking, who developed symptoms of URI few days back and ultimately she became progressively more short of breath cough and congestion got worse and the patient started having worsening rest of her symptoms. For that reason she saw he was seen at [facility] and she was referred to the hospital for hospitalization for an underlying COPD exacerbation. Note that the patient has taken COVID-19 vaccination 1 and she has not completed her vaccination completely. Nevertheless, her COVID-19 testing came back negative. Her chest x-ray was consistent with COPD with hyperinflation and there is no evidence of any airspace disease or pneumonia. No fever. No chills. No pleurisy. No chest pain. No swelling in lower extremities. She has history of 50-nklz-exhc smoking history. She has history of pancytopenia and the patient has been managed by Dr. Pathak. Her white cell count currently is at 2.8 with hemoglobin of 9.1. She has under 1 GI workup including colonoscopy and EGD and she was found to have some iron deficiency replaced by iron and her hemoglobin currently is up to 9.1. Platelet count was as low as 80 and currently is up to 182. The Baseline spirometry was done in our office showed an FEV1 of 35% of predicted. The diffusion capacity was down to 29% of predicted and this is based on the pulmonary function test that was done on 08/07/2020. She is maintenance Spiriva and albuterol HFA as needed on outpatient basis. The blood gases during this current admission showed a pH of 7.43 with a pCO2 of 39 and pO2 of 90 and this was done and FiO2 of 28%. Her total serum iron was 17. Her proBNP level was 189. Troponin was negative. On 01/23/2021 patient seen in follow-up on medical surgical floor, she is sitting up by the window, in no acute distress, she states she is breathing easier today, feeling better, she is on 3 L of oxygen and pulse ox of 96%, hemodynamically she has been stable, she has had no fever or chills. Her COVID- 19 test was negative, her chest x-ray showed some small linear density at the left mid lung consistent with scarring or subsegmental atelectasis. Patient remains on nebulized bronchodilators in the form of DuoNeb, she is on IV steroids Solu-Medrol 61 g every 6 hours, she is on azithromycin. Clinically im proving. On today's evaluation on 01/24/2021 patient seen in follow-up on medical surgical floor. She is currently on room air, for home oxygen evaluation, her pulse ox is 88%, patient feels short of breath, and she is slightly tachycardic, with a rate of 121. Earlier today she was on 3 L of oxygen. She states she still coughing, and at times she is able to bring up some whitish colored phlegm . Lung sounds reveal diminished breath sounds, with no wheezing, no rhonchi, there is some bibasilar crackles. Patient is a shallow breather, with deep breathing her pulse ox does come up to 93%. No fevers overnight. Vital signs have been stable, patient has been ambulating to the bathroom. She remains on Solu-Medrol, nebulized, and antibiotics. She has been receiving iron transfusions, today's hemoglobin is 9.2. On today's evaluation on 01/26/2021 patient seen in follow-up on medical nata gical floor. She is calm and comfortable, in no acute distress, breathing comfortably, she states her breathing has significantly improved since admission, she states she maintained O2 saturations above 90% even with ambulation today. Her vital signs have been stable, she has had no fever or chills. Lung sounds reveal no major abnormalities, no wheezing, no rhonchi, no crackles. Overall diminished breath sounds bilaterally. Patient remains on IV steroids, nebulized bronchodilators, and azithromycin. A occasional cough, mostly in the morning, with production of small amount of yellowish sputum, no chest discomfort, no hemoptysis. Patient is on oral iron supplement. His labs have been reviewed, her white blood cell count is 3.8, hemoglobin is 8.3, platelet count is 141. Her ESR was 33, her reticulocyte count is 7.9, haptoglobin is 227. Hematology service is following. Iron level was 2.2. No major events overnight. Objective - Vital Signs Vital signs: Vital Signs Temp 97.9 F 01/26/21 14:00 Pulse 88 01/26/21 16:22 Resp 20 01/26/21 14:00 BP 148/66 01/26/21 14:00 Pulse Ox 90 L 01/26/21 14:00 Intake & Output 01/25/21 01/26/21 01/26/21 18:59 06:59 18:59 Intake Total 1280 Balance 1280 Intake: Oral 1280 Other: Voiding Method Toilet Toilet Toilet # Voids 3 2 - Exam GENERAL EXAM: Alert, very pleasant, 60-year-old white female, on room air, with a pulse ox of 88% comfortable in no apparent distress. HEAD: Normocephalic/atraumatic. EYES: Normal reaction of pupils, equal size. Conjunctiva pink, sclera white. NOSE: Clear with pink turbinates. THROAT: No erythema or exudates. NECK: No masses, no JVD, no thyroid enlargement, no adenopathy. CHEST: No chest wall deformity. Symmetrical expansion. LUNGS: Equal air entry with diminished breath sounds, some limited rales at the bases. CVS: Regular rate and rhythm, normal S1 and S2, no gallops, no murmurs, no rubs ABDOMEN: Soft, nontender. No hepatosplenomegaly, normal bowel sounds, no guarding or rigidity. EXTREMITIES: No clubbing, no edema, no cyanosis, 2+ pulses and upper and lower extremities. MUSCULOSKELETAL: Muscle strength and tone normal. SPINE: No scoliosis or deformity SKIN: No rashes CENTRAL NERVOUS SYSTEM: Alert and oriented -3. No focal deficits, tone is normal in all 4 extremities. PSYCHIATRIC: Alert and oriented -3. Appropriate affect. Intact judgment and insight. - Labs CBC & Chem 7: 01/26/21 05:51 01/25/21 14:21 Labs: Abnormal Lab Results - Last 24 Hours (Table) 01/23/21 01/25/21 01/25/21 Range/Units 07:15 14:21 14:21 WBC (4.50-10.00) X 10*3/uL RBC (4.10-5.20) X 10*6/uL Hgb (12.0-15.0) g/dL Hct (37.2-46.3) % MCH (27.0-32.0) pg MCHC (32.0-37.0) g/dL RDW (11.5-14.5) % Absolute Nucleated RBC (0.00-0.00) X 10*3/uL Myelocytes % (0-0) % Lymphocytes # (Manual) (0.90-5.00) X 10*3/uL Monocytes # (Manual) (0.20-1.00) X 10*3/uL Eosinophils # (Manual) (0.04-0.35) X 10*3/uL NRBC/100 WBC Diff (0.0-0.0) /100 WBCS Retic Count 7.9 H (0.5-2.0) % Iron 332 H (50-170) ug/dL % Saturation 110.67 H (12.00-45.00) Albumin (PEP) 3.46 L (3.80-4.90) g/dL Lcvlz-5-Ygraoalue 0.55 H (0.10-0.40) g/dL Qikji-4-Bkhtcjwlc 1.10 H (0.60-1.00) g/dL 01/26/21 Range/Units 05:51 WBC 3.89 L (4.50-10.00) X 10*3/uL RBC 3.17 L (4.10-5.20) X 10*6/uL Hgb 8.3 L (12.0-15.0) g/dL Hct 30.0 L (37.2-46.3) % MCH 26.2 L (27.0-32.0) pg MCHC 27.7 L (32.0-37.0) g/dL RDW 29.1 H (11.5-14.5) % Absolute Nucleated RBC 0.12 H (0.00-0.00) X 10*3/uL Myelocytes % 2 H (0-0) % Lymphocytes # (Manual) 0.74 L (0.90-5.00) X 10*3/uL Monocytes # (Manual) 0 L (0.20-1.00) X 10*3/uL Eosinophils # (Manual) 0 L (0.04-0.35) X 10*3/uL NRBC/100 WBC Diff 3.1 H (0.0-0.0) /100 WBCS Retic Count (0.5-2.0) % Iron (50-170) ug/dL % Saturation (12.00-45.00) Albumin (PEP) (3.80-4.90) g/dL Qkgmk-8-Vnpafaknm (0.10-0.40) g/dL Onzhj-6-Ncdyocfou (0.60-1.00) g/dL Assessment and Plan Plan: 1 Acute COPD exacerbation probably related to URI/bronchitis. No evidence of pneumonia at this point in time. Chest x-ray is free of any acute pulmonary infiltrates. 2 severe COPD with a baseline FEV1 of 34% of predicted maintenance Spiriva on outpatient basis in addition to albuterol HFA 3 chronic dyspnea secondary to above 4 COVID-19 vaccination 1 and the patient's COVID-19 by PCR came back negative 5 history of smoking 6 history of iron deficiency anemia 7 history of pancytopenia, platelet count is improved and the white cell count remains somewhat low Plan: Improving from pulmonary perspective Maintaining O2 saturation above 90% No fever or chills Increase activity as tolerated We'll switch her IV Solu-Medrol to oral prednisone starting at 30 mg From pulmonary perspective patient can be considered for discharge home if cleared by medicine Follow-up in the pulmonary clinic in 7-10 days. I performed a history & physical examination of the patient and discussed their management with my nurse practitioner, Earnestine Choi. I reviewed the nurse practitioner's note and agree with the documented findings and plan of care. Lung sounds are positive for diminished breath sounds throughout the lung mccoy. The findings and the impression was discussed with the patient. I attest to the documentation by the nurse practitioner. Time with Patient: Less than 30
--- NOTE | 2021-01-26 17:23 | P.DS ---
<Ryder Tobar - Last Filed: 01/26/21 17:13> Providers Expected date of discharge: 01/26/21 Hospital Course: Discharge Diagnosis: Acute COPD exacerbation Abnormal lab findings revealing 2% blasts cells with an abnormal smear with reportedly significantly abnormal granulocytes per pathologist. Pancytopenia Iron deficiency anemia Nicotine dependence Hospital Course: Patient is a 60-year-old female with a past medical history of COPD, pancytopenia, iron deficiency anemia, and long-standing history of an current use of tobacco products smoking approximately half a pack to a pack of cigarettes daily. Patient presented to the emergency department on 01/21/21 with a chief complaint of shortness of breath, cough, and congestion beginning a few days ago and progressively worsening. 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 She was seen and fully evaluated in the emergency department. An EKG was completed showing sinus tachycardia at 122 bpm. Chest x-ray revealed hyperinflation and flattening diaphragm consistent with COPD. Covid 19 PCR was negative. Patient admitted under our services for acute COPD exacerbation along with consultation to pulmonology. CBC with differential resulted in 2% blast cells with abnormal smear, hematology consult placed. Iron 17, TIBC 309, iron saturation 5.50, and ferritin of 40.4. Patient required oxygen supplementation and was treated with azithromycin, Pulmicort, scheduled DuoNebs along with as needed Duonebs for shortness of breath and/or wheezing, and methylprednisone. She was also treated for iron deficiency anemia and received 3 transfusions of iron during hospitalization. Patient's condition has improved daily and she was successfully weaned from oxygen. Home O2 evaluation completed this afternoon and patient was 92-94% on room air at rest and went up to 94% with ambulation. Patient was cleared from pulmonology and hematology for discharge. Patient's condition is medically stable at this time and she is medically cleared for discharge home. Patient strongly advised to stop smoking as if she returns to smoking she will retrigger another COPD attack. Patient being discharged home with Nicorette gum she requested, nebulizer with DuoNeb treatments, Medrol Dosepak, and instructed to continue Spiriva. Patient to follow up outpatient with her PCP, Dr. Mercer in 1-2 days and with pulmonology and hematology in 1 week. A total of 45 minutes of time were spent preparing this complex discharge summary. Assessment: Patient seen and evaluated by me independently. Patient was also seen by ELLIOTT, the original author of this note. I am in agreement with the subjective, physical exam, and assessment and plan as documented with the addition/changes of my exam and assessment below. Gen: awake, alert HEENT: normocephalic, atraumatic, good hearing acuity, moist mucous membranes Resp: good air exchange, breathing comfortably with no accessory muscle use CVS: good distal perfusion x 4, GI: soft, NTTP, ND : no SPT, no CVAT, genao catheter not present MSK: no pitting edema, no clubbing Neuro: non-focal, moving all extremities Psych: cooperative, euthymic mood Plan: Agree with plan, no changes Patient Condition at Discharge: Stable Plan - Discharge Summary New Discharge Prescriptions: New Ipratropium-Albuterol Nebulize [Duoneb 0.5 mg-3 mg/3 ml Soln] 3 ml INHALATION RT-QID #1 box methylPREDNISolone Dose Pack [Medrol Dose Pack] 4 mg PO DIRECTED #21 package Nicotine Polacrilex [Nicorette] 2 mg BUCCAL Q2HR PRN 30 Days #1 box PRN Reason: Nicotine Cravings Azithromycin [Zithromax] 500 mg PO DAILY@1200 3 Days #3 tab Continue Albuterol Inhaler [Ventolin Hfa Inhaler] 2 puff INHALATION RT-Q4H PRN PRN Reason: Shortness Of Breath Ferrous Sulfate [Slow Fe] 142 mg PO BID Benzonatate [Tessalon Perles] 100 mg PO Q6H PRN PRN Reason: Cough Tiotropium [place] [Spiriva] 1 cap INHALATION RT-DAILY Discharge Medication List Albuterol Inhaler [Ventolin Hfa Inhaler] 2 puff INHALATION RT-Q4H PRN 08/08/20 [History] Ferrous Sulfate [Slow Fe] 142 mg PO BID 08/19/20 [History] Benzonatate [Tessalon Perles] 100 mg PO Q6H PRN 01/22/21 [History] Tiotropium [place] [Spiriva] 1 cap INHALATION RT-DAILY 01/22/21 [History] Azithromycin [Zithromax] 500 mg PO DAILY@1200 3 Days #3 tab 01/26/21 [Rx] Ipratropium-Albuterol Nebulize [Duoneb 0.5 mg-3 mg/3 ml Soln] 3 ml INHALATION RT-QID #1 box 01/26/21 [Rx] Nicotine Polacrilex [Nicorette] 2 mg BUCCAL Q2HR PRN 30 Days #1 box 01/26/21 [Rx] methylPREDNISolone Dose Pack [Medrol Dose Pack] 4 mg PO DIRECTED #21 package 01/26/21 [Rx] Follow up Appointment(s)/Referral(s): Kizzy Ayala MD [STAFF PHYSICIAN] - 1 Week Celio Briceno MD [STAFF PHYSICIAN] - 1 Week Virgie Orellana NPC [Nurse Practitioner] - 10 Days Saroj Vides MD [Primary Care Provider] - 1-2 days Patient Instructions/Handouts: COPD (Chronic Obstructive Pulmonary Disease) (DC) Discharge Disposition: HOME SELF-CARE <German Wellington - Last Filed: 01/27/21 08:50> Providers Date of admission: 01/21/21 23:58 Attending physician: Mary Argueta MD Consults: 01/22/21 09:27 Consult Physician Urgent Consulting Provider: Yassine Thorpe Consult Reason/Comments: copd Do you want consulting provider notified?: Yes 01/22/21 15:29 Consult Physician Routine Consulting Provider: Celio Briceno Consult Reason/Comments: CBC....2% blast cells with abnormal smear Do you want consulting provider notified?: Yes Primary care physician: Saroj Vides MD
[2021-01-27] MEDS ORDERED: predniSONE 10 MG TAB PO SCH (09:00)
== END 2021-01-26 18:45 | disposition home or self-care (01) | DRG 191 ==
LOC: EC 20:39 → 4SSUR 23:58
PROVIDERS: ADMIT Internal Medicine; ATTEND Internal Medicine
DX: J44.1 Chronic obstructive pulmonary disease with (acute) exacerbation (principal); D61.818 Other pancytopenia; D50.9 Iron deficiency anemia, unspecified; D53.9 Nutritional anemia, unspecified; F17.210 Nicotine dependence, cigarettes, uncomplicated; F32.9 Major depressive disorder, single episode, unspecified; Z20.822 Contact with and (suspected) exposure to COVID-19; Z79.899 Other long term (current) drug therapy
CPT/HCPCS: 36415; 71046; 80048; 80053; 82607; 82668; 82728; 82746; 82747; 82784; 82805; 83010; 83540; 83550; 83605; 83615; 83735; 83880; 83883; 83921; 84165; 84439; 84443; 84484; 85025; 85027; 85045; 85379; 85610; 85652; 85730; 86038; 86334; 86431; 87635; 93005; 94640; 94760; 99285

== ENCOUNTER → 2021-02-11 | Outpatient (CLI) | payer BC ==
[2021-02-11 20:50] LABS: HCT 25.9 % (37.2-46.3); HGB 7.5 g/dL (12.0-15.0); MCH 26.8 pg (27.0-32.0); MCV 92.5 fL (80.0-97.0); Platelet Count 196 X 10*3/uL (140-440); RDW 33.2 % (11.5-14.5); WBC 6.58 X 10*3/uL (4.50-10.00)
[2021-02-11 20:51] LABS: Anisocytosis (M) 2+; Basophils # (M) 0 X 10*3/uL (0.00-0.10); Hypochromasia (M) 2+; Lymphocytes # (M) 1.38 X 10*3/uL (0.90-5.00); Macrocytosis (M) 2+; Monocytes # (M) 0 X 10*3/uL (0.20-1.00); Neutrophils % (M) 76 %; Polychromasia 2+
== END | disposition home or self-care (01) ==
LOC: LABWHC1 15:36
PROVIDERS: ATTEND Internal Medicine
DX: D64.9 Anemia, unspecified (principal)
CPT/HCPCS: 36415; 85025

== ENCOUNTER 2021-02-13 12:29 | Inpatient (IN) | payer BC ==
[2021-02-13 14:06] LABS: Anisocytosis Marked; HCT 25.9 % (34.0-46.0); HGB 8.4 gm/dL (11.4-16.0); Hypochromasia Moderate; MCH 29.2 pg (25.0-35.0); MCHC 32.3 g/dL (31.0-37.0); MCV 90.4 fL (80.0-100.0); Macrocytosis Moderate; Mean Platelet Volume 12.6; Microcytosis Moderate; Platelet Count 251 k/uL (150-450); Poikilocytosis Moderate; RBC 2.86 m/uL (3.80-5.40)
--- NOTE | 2021-02-13 14:23 | XR ---
EXAMINATION TYPE: XR chest 2V DATE OF EXAM: 02/13/2021 COMPARISON: 01/21/2021 HISTORY: Shortness of breath TECHNIQUE: Frontal and lateral views of the chest are obtained. FINDINGS: Scattered senescent parenchymal changes noted. Hyperinflation compatible with COPD. Patchy infiltrate left midlung zone and right infrahilar regions felt to reflect pneumonia. Correlate clinically and progress studies are recommended. Heart size is stable. Mediastinal structures are stable and grossly unremarkable. No evidence for hilar prominence. Degenerative changes dorsal spine. IMPRESSION: 1. Patchy infiltrate left midlung zone and right infrahilar regions felt to reflect pneumonia. Correl ate clinically and progress studies are recommended.
[2021-02-13 14:24] LABS: ALT 24 U/L (4-34); AST 24 U/L (14-36); African American GFR (CKD) >90 (>60 ml/min/1.73 sqM); Alkaline Phosphatase 124 U/L (38-126); Anion Gap 9 mmol/L; Blood Urea Nitrogen 5 mg/dL (7-17); Calcium 8.5 mg/dL (8.4-10.2); Carbon Dioxide 23 mmol/L (22-30); Chloride 100 mmol/L (98-107); Glucose 145 mg/dL (74-99); Non-African American GFR(CKD) >90 (>60 ml/min/1.73 sqM); Potassium 3.8 mmol/L (3.5-5.1); Sodium 132 mmol/L (137-145); Total Bilirubin 0.6 mg/dL (0.2-1.3); Total Protein 5.8 g/dL (6.3-8.2)
[2021-02-13 14:29] LABS: INR 1.1 (<1.2)
--- NOTE | 2021-02-13 14:29 | ED ---
General Adult HPI - General Chief complaint: Recheck/Abnormal Lab/Rx Stated complaint: adb labs/sob/sent by pcp Time Seen by Provider: 02/13/21 13:35 Source: patient Mode of arrival: wheelchair Limitations: no limitations - History of Present Illness Initial comments: 60-year-old female presents emergency room with reported shortness of breath, weakness and palpitations since feb 04 when she had her second covid vaccine. Patient was seen in the emergency room for similar complaints last month. She was found to have a COPD exacerbation as well as anemia and received iron infusions. She received her Covid vaccine on the first and shortly afterwards began having worsening shortness of breath. Denies cough, fevers or congestion. No Covid exposures. She states she followed up with Dr. Ayala in office 2 days ago and had a heart rate of 130. Because of her history of anemia, Dr. Wallace completed blood work. She was called yesterday to be notified that he will open was 7.5 and they recommended that she come in to the emergency room for further evaluation. She denies rectal bleeding. Follows with Dr. Pathak from [facility]. No other alleviating, precipitating or modifying factors - Related Data Home Medications Medication Instructions Recorded Confirmed Albuterol Inhaler [Ventolin Hfa 2 puff INHALATION RT-Q4H PRN 08/08/20 02/13/21 Inhaler] Ferrous Sulfate [Slow Fe] 142 mg PO BID 08/19/20 02/13/21 Tiotropium [place] [Spiriva] 1 cap INHALATION RT-DAILY 01/22/21 02/13/21 Previous Rx's Medication Instructions Recorded Ipratropium-Albuterol Nebulize 3 ml INHALATION RT-QID #1 box 01/26/21 [Duoneb 0.5 mg-3 mg/3 ml Soln] Allergies Allergy/AdvReac Type Severity Reaction Status Date / Time ferumoxytol Allergy Severe Rash/Hives Verified 02/13/21 14:51 Review of Systems ROS Statement: Those systems with pertinent positive or pertinent negative responses have been documented in the HPI. ROS Other: All systems not noted in ROS Statement are negative. Past Medical History Past Medical History: COPD Additional Past Medical History / Comment(s): Pancytopenia, iron deficiency anemia, COPD History of Any Multi-Drug Resistant Organisms: None Reported Past Surgical History: No Surgical Hx Reported Additional Past Surgical History / Comment(s): tooth extraction Past Anesthesia/Blood Transfusion Reactions: No Reported Reaction Additional Past Anesthesia/Blood Transfusion Reaction / Comment(s): unknown family hx-pt is adopted Past Psychological History: Depression Smoking Status: Never smoker Past Alcohol Use History: None Reported Past Drug Use History: None Reported - Past Family History Father History Unknown: Yes Additional Family Medical History / Comment(s): unknown, adopted at Mother History Unknown: Yes Additional Family Medical History / Comment(s): unknown, adopted at General Exam Limitations: no limitations Course Vital Signs 02/13/21 02/13/21 02/13/21 13:17 15:04 18:04 Temperature 98.2 F 98.7 F 98.6 F Pulse Rate 119 H 120 H 108 H Respiratory 22 24 18 Rate Blood Pressure 97/63 123/61 107/81 O2 Sat by Pulse 94 L 89 L 96 Oximetry 02/13/21 02/13/21 02/13/21 18:12 18:23 19:21 Temperature Pulse Rate 100 110 H 113 H Respiratory 20 Rate Blood Pressure 103/65 O2 Sat by Pulse 96 Oximetry EKG Findings - EKG Comments: EKG Findings:: EKG demonstrates sinus tachycardia with a ventricular rate of 120. WA interval 130. QRS 76. QTC 421. No acute ST segment elevations or depressions concerning for ischemic changes Medical Decision Making - Medical Decision Making Upon arrival patient is placed into trauma 1. A thorough history and physical exam was performed. Patient is tachycardic and hypoxic with oxygenation of 88% upon ambulation. She is placed on 2 L of oxygen. Laboratory studies were conducted. Hemoglobin is 8.4 at this time with a blast percentage of 3. D- dimer elevated at 1.29. Lactic acid 2.2. We did test the patient for Covid as symptoms started after vaccination. Chest x-ray was performed which demonstr ates patchy infiltrate left mid lung zone and right infrahilar region felt to reflect pneumonia. Because of elevated d-dimer this is followed by a chest CT which demonstrates no evidence for PE. Interstitial changes throughout with patchy peripheral and peribronchial or vascular opacities mid and lower lungs correlate for interstitial pneumonitis or atypical pneumonia. The patient is informed that her hemoglobin is 8.4 at this time does not require transfusion however I am concerned about her tachycardia and hypoxia. I did recommend hospitalization for heme consultation and pulmonology consultation. The patient was given a DuoNeb breathing treatment, 125 Solu-Medrol and started on azith romycin and Rocephin. The patient did agree to the treatment plan. She is currently awaiting a bed on the floor - Lab Data Result diagrams: 02/13/21 13:57 02/13/21 13:57 Lab Results 02/13/21 02/13/21 02/13/21 Range/Units 13:57 13:57 13:57 WBC 5.0 (3.8-10.6) k/uL RBC 2.86 L (3.80-5.40) m/uL Hgb 8.4 L (11.4-16.0) gm/dL Hct 25.9 L (34.0-46.0) % MCV 90.4 (80.0-100.0) fL MCH 29.2 (25.0-35.0) pg MCHC 32.3 (31.0-37.0) g/dL RDW 29.5 H (11.5-15.5) % Plt Count 251 (150-450) k/uL MPV 12.6 Neutrophils % (Manual) 81 % Lymphocytes % (Manual) 14 % Monocytes % (Manual) 1 % Eosinophils % (Manual) 2 % Blast Cells % 3 H* % Neutrophils # (Manual) 4.05 (1.3-7.7) k/uL Lymphocytes # (Manual) 0.70 L (1.0-4.8) k/uL Monocytes # (Manual) 0.05 (0-1.0) k/uL Eosinophils # (Manual) 0.10 (0-0.7) k/uL Blast Cells # (Man) 0.15 H (0) k/uL Nucleated RBCs 5 H (0-0) /100 WBC Differential Comment Manual Slide Review Performed Large Platelets Present Polychromasia Present Hypochromasia Moderate Poikilocytosis Moderate Anisocytosis Marked Microcytosis Moderate Macrocytosis Moderate PT 11.4 (9.0-12.0) sec INR 1.1 (<1.2) APTT 20.9 L (22.0-30.0) sec D-Dimer (<0.60) mg/L FEU Sodium 132 L (137-145) mmol/L Potassium 3.8 (3.5-5.1) mmol/L Chloride 100 (98-107) mmol/L Carbon Dioxide 23 (22-30) mmol/L Anion Gap 9 mmol/L BUN 5 L (7-17) mg/dL Creatinine 0.42 L (0.52-1.04) mg/dL Est GFR (CKD-EPI)AfAm >90 (>60 ml/min/1.73 sqM) Est GFR (CKD-EPI)NonAf >90 (>60 ml/min/1.73 sqM) Glucose 145 H (74-99) mg/dL Lactic Ac Sepsis Rflx Plasma Lactic Acid Alex (0.7-2.0) mmol/L Calcium 8.5 (8.4-10.2) mg/dL Magnesium 2.0 (1.6-2.3) mg/dL Total Bilirubin 0.6 (0.2-1.3) mg/dL AST 24 (14-36) U/L ALT 24 (4-34) U/L Alkaline Phosphatase 124 (38-126) U/L Troponin I (0.000-0.034) ng/mL NT-Pro-B Natriuret Pep pg/mL Total Protein 5.8 L (6.3-8.2) g/dL Albumin 3.0 L (3.5-5.0) g/dL Coronavirus (PCR) (Not Detectd) 02/13/21 02/13/21 02/13/21 Range/Units 13:57 13:57 13:59 WBC (3.8-10.6) k/uL RBC (3.80-5.40) m/uL Hgb (11.4-16.0) gm/dL Hct (34.0-46.0) % MCV (80.0-100.0) fL MCH (25.0-35.0) pg MCHC (31.0-37.0) g/dL RDW (11.5-15.5) % Plt Count (150-450) k/uL MPV Neutrophils % (Manual) % Lymphocytes % (Manual) % Monocytes % (Manual) % Eosinophils % (Manual) % Blast Cells % % Neutrophils # (Manual) (1.3-7.7) k/uL Lymphocytes # (Manual) (1.0-4.8) k/uL Monocytes # (Manual) (0-1.0) k/uL Eosinophils # (Manual) (0-0.7) k/uL Blast Cells # (Man) (0) k/uL Nucleated RBCs (0-0) /100 WBC Differential Comment Manual Slide Review Large Platelets Polychromasia Hypochromasia Poikilocytosis Anisocytosis Microcytosis Macrocytosis PT (9.0-12.0) sec INR (<1.2) APTT (22.0-30.0) sec D-Dimer (<0.60) mg/L FEU Sodium (137-145) mmol/L Potassium (3.5-5.1) mmol/L Chloride (98-107) mmol/L Carbon Dioxide (22-30) mmol/L Anion Gap mmol/L BUN (7-17) mg/dL Creatinine (0.52-1.04) mg/dL Est GFR (CKD-EPI)AfAm (>60 ml/min/1.73 sqM) Est GFR (CKD-EPI)NonAf (>60 ml/min/1.73 sqM) Glucose (74-99) mg/dL Lactic Ac Sepsis Rflx Plasma Lactic Acid Alex 2.2 H* (0.7-2.0) mmol/L Calcium (8.4-10.2) mg/dL Magnesium (1.6-2.3) mg/dL Total Bilirubin (0.2-1.3) mg/dL AST (14-36) U/L ALT (4-34) U/L Alkaline Phosphatase (38-126) U/L Troponin I <0.012 (0.000-0.034) ng/mL NT-Pro-B Natriuret Pep 409 pg/mL Total Protein (6.3-8.2) g/dL Albumin (3.5-5.0) g/dL Coronavirus (PCR) (Not Detectd) 02/13/21 02/13/21 02/13/21 Range/Units 14:48 15:00 15:08 WBC (3.8-10.6) k/uL RBC (3.80-5.40) m/uL Hgb (11.4-16.0) gm/dL Hct (34.0-46.0) % MCV (80.0-100.0) fL MCH (25.0-35.0) pg MCHC (31.0-37.0) g/dL RDW (11.5-15.5) % Plt Count (150-450) k/uL MPV Neutrophils % (Manual) % Lymphocytes % (Manual) % Monocytes % (Manual) % Eosinophils % (Manual) % Blast Cells % % Neutrophils # (Manual) (1.3-7.7) k/uL Lymphocytes # (Manual) (1.0-4.8) k/uL Monocytes # (Manual) (0-1.0) k/uL Eosinophils # (Manual) (0-0.7) k/uL Blast Cells # (Man) (0) k/uL Nucleated RBCs (0-0) /100 WBC Differential Comment Manual Slide Review Large Platelets Polychromasia Hypochromasia Poikilocytosis Anisocytosis Microcytosis Macrocytosis PT (9.0-12.0) sec INR (<1.2) APTT (22.0-30.0) sec D-Dimer 1.29 H (<0.60) mg/L FEU Sodium (137-145) mmol/L Potassium (3.5-5.1) mmol/L Chloride (98-107) mmol/L Carbon Dioxide (22-30) mmol/L Anion Gap mmol/L BUN (7-17) mg/dL Creatinine (0.52-1.04) mg/dL Est GFR (CKD-EPI)AfAm (>60 ml/min/1.73 sqM) Est GFR (CKD-EPI)NonAf (>60 ml/min/1.73 sqM) Glucose (74-99) mg/dL Lactic Ac Sepsis Rflx Y Plasma Lactic Acid Alex (0.7-2.0) mmol/L Calcium (8.4-10.2) mg/dL Magnesium (1.6-2.3) mg/dL Total Bilirubin (0.2-1.3) mg/dL AST (14-36) U/L ALT (4-34) U/L Alkaline Phosphatase (38-126) U/L Troponin I (0.000-0.034) ng/mL NT-Pro-B Natriuret Pep pg/mL Total Protein (6.3-8.2) g/dL Albumin (3.5-5.0) g/dL Coronavirus (PCR) Not Detected (Not Detectd) Disposition Clinical Impression: Anemia, COPD exacerbation, Hypoxia Disposition: ADMITTED IP TO THIS HOSP Condition: Stable Is patient prescribed a controlled substance at d/c from ED?: No Decision to Admit Reason: Admit from EC Decision Date: 02/13/21 Decision Time: 17:34
[2021-02-13 14:30] LABS: Prothrombin Time 11.4 sec (9.0-12.0)
[2021-02-13 14:32] LABS: RDW 29.5 % (11.5-15.5)
[2021-02-13 14:49] LABS: Partial Thromboplastin Time 20.9 sec (22.0-30.0)
[2021-02-13 15:25] LABS: Monocytes # (M) 0.05 k/uL (0-1.0); Neutrophils % (M) 81 %
[2021-02-13 15:26] LABS: Nucleated Red Blood Cells 5 /100 WBC (0-0); Total Cells Counted 200
[2021-02-13 15:27] LABS: Blast Cells # (M) 0.15 k/uL (0); Neutrophils # (M) 4.05 k/uL (1.3-7.7)
[2021-02-13 15:28] LABS: Polychromasia Present
[2021-02-13 15:30] LABS: Large Platelets Present
--- NOTE | 2021-02-13 16:41 | CT ---
EXAMINATION TYPE: CT chest angio for PE DATE OF EXAM: 02/13/2021 COMPARISON: Radiograph 02/13/2021 HISTORY: 60-year-old female Shortness of breath, elevated d-dimer TECHNIQUE: Contiguous axial scanning of the chest performed with IV Contrast, patient injected with 1 00, wasted 28 mL of Isovue 370. Coronal/sagittal MIP reconstructions performed. CT DLP: 210.1 mGycm Automated exposure control for dose reduction was used. FINDINGS: Heart normal size without pericardial effusion. No flattening of the interventricular septum. Mild LA D coronary artery calcifications are present. Scattered nonenlarged mediastinal lymph nodes. Precarinal lymph node is upper limits of normal in siz e at 9 mm. Hilar lymph nodes are enlarged at 2.4 x 1.3 cm on the right and 1.5 cm on the left. Findin gs likely reactive/post inflammatory. Mildly enlarged caliber to the main right and left pulmonary arteries measuring up to 2.6 cm. Satisfa ctory opacification of the pulmonary arterial system. No definite pulmonary embolus. Mild to moderate central lobular emphysema. Septal lines in the upper lungs. Patchy peripheral and pe ribronchovascular opacities bilaterally. Some groundglass changes in the right lower lobe. There are 2 contiguous irregular opacities in the right upper lobe measuring 9 mm and 7 mm, axial frances ge 40 and 46. No pleural effusion. Visualized upper abdomen shows mild diffuse thickening of the left adrenal gland without discrete nod ularity. Bones: No osseous destructive process. IMPRESSION: 1. NO EVIDENCE FOR PULMONARY EMBOLUS. 2. COPD WITH MILD TO MODERATE EMPHYSEMA. 3. INTERSTITIAL CHANGES THROUGHOUT. PATCHY PERIPHERAL AND PERIBRONCHIAL VASCULAR OPACITIES MID AND LO WER LUNGS. GROUNDGLASS CHANGES IN THE RIGHT LOWER LOBE. CORRELATE FOR INTERSTITIAL PNEUMONITIS OR ATY PICAL PNEUMONIA SUCH COVID PNEUMONIA. 4. 2 ADJACENT IRREGULAR OPACITIES MEASURING UP TO 9 MM IN THE RIGHT UPPER LOBE. THREE-MONTH FOLLOW-UP CT CHEST TO EXCLUDE EARLY NEOPLASM. 5. A FEW ENLARGED HILAR LYMPH NODES MEASURING UP TO 2.4 CM SUSPECTED TO BE REACTIVE. THESE SHOULD ALS O BE REASSESSED AT THE THREE-MONTH FOLLOW-UP.
[2021-02-13] MEDS ORDERED: IPRATROPIUM-ALBUTEROL 3 ML NEB INHALATION STA (17:30)
[2021-02-13] MEDS ORDERED: methylPREDNISolone SOD SUCCI 125 MG/2 ML VIAL IV STA (17:30)
[2021-02-13] MEDS ORDERED: AZITHROMYCIN 500 MG in SODIUM CHLORIDE 0.9% 250 ML IVPB STA (17:31)
[2021-02-13] MEDS ORDERED: cefTRIAXone IN SWFI 1,000 MG/10 ML SYRINGE IVP STA (17:31)
[2021-02-13] MEDS ORDERED: NALOXONE 0.4 MG/ML 1 ML VIAL IV PRN (17:34)
--- NOTE | 2021-02-13 20:05 | P.HPIM ---
History of Present Illness H&P Date: 02/13/21 Chief Complaint: Fatigue and shortness of breath This is a 60-year-old white female who reported to the hospital with shortness of breath that has been getting worse for the past 10 days. She also been feeling weak fatigued and tired. She denies chest pain, no subjective fever no chills no cough. She states that symptoms started around February 04 covert vaccine shot. She denies hematuria dysuria hematemesis or hematochezia. She has COPD but is not on oxygen at home. She had lab work as an outpatient and was found to have a hemoglobin of 7.52 days ago, she was called in to the emergency room for possible blood transfusion. Review of Systems 10 systems reviewed, pertinent positive and negative findings as in HPI. No chest pain, no abdominal pain Past Medical History Past Medical History: COPD Additional Past Medical History / Comment(s): Pancytopenia, iron deficiency anemia, COPD History of Any Multi-Drug Resistant Organisms: None Reported Past Surgical History: No Surgical Hx Reported Additional Past Surgical History / Comment(s): tooth extraction Past Anesthesia/Blood Transfusion Reactions: No Reported Reaction Additional Past Anesthesia/Blood Transfusion Reaction / Comment(s): unknown family hx-pt is adopted Past Psychological History: Depression Smoking Status: Never smoker Past Alcohol Use History: None Reported Past Drug Use History: None Reported - Past Family History Father History Unknown: Yes Additional Family Medical History / Comment(s): unknown, adopted at Mother History Unknown: Yes Additional Family Medical History / Comment(s): unknown, adopted at Medications and Allergies Home Medications Medication Instructions Recorded Confirmed Type Albuterol Inhaler [Ventolin Hfa 2 puff INHALATION RT-Q4H PRN 08/08/20 02/13/21 History Inhaler] Ferrous Sulfate [Slow Fe] 142 mg PO BID 08/19/20 02/13/21 History Tiotropium [place] [Spiriva] 1 cap INHALATION RT-DAILY 01/22/21 02/13/21 History Ipratropium-Albuterol Nebulize 3 ml INHALATION RT-QID #1 box 01/26/21 02/13/21 Rx [Duoneb 0.5 mg-3 mg/3 ml Soln] Allergies Allergy/AdvReac Type Severity Reaction Status Date / Time ferumoxytol Allergy Severe Rash/Hives Verified 02/13/21 14:51 Physical Exam Vitals: Vital Signs Temp Pulse Resp BP Pulse Ox 02/13/21 19:21 113 H 20 103/65 96 02/13/21 18:23 110 H 02/13/21 18:12 100 02/13/21 18:04 98.6 F 108 H 18 107/81 96 02/13/21 15:04 98.7 F 120 H 24 123/61 89 L 02/13/21 13:17 98.2 F 119 H 22 97/63 94 L Intake and Output 02/13/21 02/13/21 02/13/21 06:59 14:59 22:59 Other: Weight 54.431 kg Constitutional: No acute distress, conversant, pleasant Eyes: Anicteric sclerae, moist conjunctiva, no lid-lag, PERRLA ENMT: NC/AT,Oropharynx clear, no erythema, exudates Neck:Supple, FROM, no masses, or JVD Lungs: Decreased breath sounds, no wheezing Cardiovascular: Heart regular in rate and rhythm, No murmurs, gallops, or rubs no peripheral edema Abdominal: Soft Nontender, nom distended, no guarding, no rebound or rigidity, Normoactive bowel sounds No hepatomegaly, No splenomegaly, No palpable mass No abdominal wall hernia noted Skin: Normal temperature, tone, texture, turgor, No induration No subcutaneous nodules, No rash, lesions, No ulcers Extremities:No digital cyanosis No clubbing, Pedal pulses intact and symmetrical Radial pulses intact and symmetrical Normal gait and station, No calf tenderness Psychiatric: Alert and oriented to person, place and time, Appropriate affect Intact judgement Neuro: Muscles Strength 5/5 in all 4 extremities, Sensation to light touch grossly present throughout, Cranial nerves II-XII grossly intact. No focal sensory deficits Results CBC & Chem 7: 02/13/21 13:57 02/13/21 13:57 Labs: Abnormal Lab Results - Last 24 Hours (Table) 02/13/21 02/13/21 02/13/21 Range/Units 13:57 13:57 13:57 RBC 2.86 L (3.80-5.40) m/uL Hgb 8.4 L (11.4-16.0) gm/dL Hct 25.9 L (34.0-46.0) % RDW 29.5 H (11.5-15.5) % Blast Cells % 3 H* % Lymphocytes # (Manual) 0.70 L (1.0-4.8) k/uL Blast Cells # (Man) 0.15 H (0) k/uL Nucleated RBCs 5 H (0-0) /100 WBC APTT 20.9 L (22.0-30.0) sec D-Dimer (<0.60) mg/L FEU Sodium 132 L (137-145) mmol/L BUN 5 L (7-17) mg/dL Creatinine 0.42 L (0.52-1.04) mg/dL Glucose 145 H (74-99) mg/dL Plasma Lactic Acid Alex (0.7-2.0) mmol/L Total Protein 5.8 L (6.3-8.2) g/dL Albumin 3.0 L (3.5-5.0) g/dL 02/13/21 02/13/21 Range/Units 13:57 14:48 RBC (3.80-5.40) m/uL Hgb (11.4-16.0) gm/dL Hct (34.0-46.0) % RDW (11.5-15.5) % Blast Cells % % Lymphocytes # (Manual) (1.0-4.8) k/uL Blast Cells # (Man) (0) k/uL Nucleated RBCs (0-0) /100 WBC APTT (22.0-30.0) sec D-Dimer 1.29 H (<0.60) mg/L FEU Sodium (137-145) mmol/L BUN (7-17) mg/dL Creatinine (0.52-1.04) mg/dL Glucose (74-99) mg/dL Plasma Lactic Acid Alex 2.2 H* (0.7-2.0) mmol/L Total Protein (6.3-8.2) g/dL Albumin (3.5-5.0) g/dL Assessment and Plan Plan: 1. Acute on chronic COPD exacerbation with hypoxia: Oxygen bronchodilators IV steroids and antibiotics with Rocephin and Zithromax. CT chest negative for pulmonary embolism 2. Bilateral patchy pneumonia unspecified organism: Start Rocephin and Zithromax 3. 9 mm pulmonary nodule right upper lobe with hilar nodes: Supportive care, needs follow-up as an outpatient. 4. Lactic acidosis secondary to infection without evidence of sepsis: Continue IV fluids and IV antibiotics. 5. Hypovolemic hyponatremia: Normal saline at 75 mL per hour 6. Anemia, chronic, likely iron deficiency: Hemoglobin 7.5 as an outpatient 2 days ago, currently 8.4, monitor H&H and transfuse as indicated. Start PPI. DVT: SCDs Disposition: Home in 1-2 days, pending clinical progression
[2021-02-13] MEDS: methylPREDNISolone SOD SUCCI 40 MG/ML 1 ML VIAL IV SCH (23:21)
[2021-02-13] MEDS: PANTOPRAZOLE 40 MG/10 ML VIAL IVP SCH (23:21)
[2021-02-13] MEDS: SODIUM CHLORIDE 0.9% 1,000 ML IV SCH (23:22)
[2021-02-14] MEDS: IPRATROPIUM-ALBUTEROL 3 ML NEB INHALATION SCH ×6 (01:19→20:21)
[2021-02-14] MEDS: methylPREDNISolone SOD SUCCI 40 MG/ML 1 ML VIAL IV SCH ×3 (07:42→23:43)
[2021-02-14] MEDS: PANTOPRAZOLE 40 MG/10 ML VIAL IVP SCH ×2 (07:42→19:59)
[2021-02-14] MEDS: SODIUM CHLORIDE 0.9% 1,000 ML IV SCH (07:42)
[2021-02-14] MEDS: FERROUS SULFATE 325 MG TAB PO SCH (08:50)
[2021-02-14 10:24] LABS: Anisocytosis (M) 3+; Basophils # (M) 0 X 10*3/uL (0.00-0.10); Eosinophils # (M) 0.03 X 10*3/uL (0.04-0.35); HCT 22.8 % (37.2-46.3); HGB 6.6 g/dL (12.0-15.0); Lymphocytes # (M) 0.23 X 10*3/uL (0.90-5.00); MCH 26.6 pg (27.0-32.0); MCHC 28.9 g/dL (32.0-37.0); MCV 91.9 fL (80.0-97.0); Macrocytosis (M) 2+; Monocytes # (M) 0 X 10*3/uL (0.20-1.00); Neutrophils # (M) 2.62 X 10*3/uL (2.00-8.90); Neutrophils % (M) 91 %; Platelet Count 193 X 10*3/uL (140-440); Polychromasia 2+; RBC 2.48 X 10*6/uL (4.10-5.20); RDW 32.7 % (11.5-14.5); Schistocytes 1+; WBC 2.88 X 10*3/uL (4.50-10.00)
[2021-02-14 10:26] LABS: African American GFR (CKD) 130.3 (60.0-200.0); Albumin 3.2 g/dL (3.80-4.90); Albumin/Globulin Ratio 1.52 (1.60-3.17); Calcium 8.2 mg/dL (8.7-10.3); Globulin 2.1 g/dL (1.6-3.3); Non-African American GFR(CKD) 112.4 (60.0-200.0); Potassium 4.1 mmol/L (3.5-5.5); Total Bilirubin 0.2 mg/dL (0.3-1.2); Total Protein 5.3 g/dL (6.2-8.2)
[2021-02-14 10:39] LABS: Appearance,Urine Clear (Clear); Bilirubin,Urine Negative (Negative); Blood,Urine Negative (Negative); Color,Urine Yellow; Glucose,Urine (UA) 4+ (Negative); Ketones,Urine Negative (Negative); Leukocyte Esterase,Urine Negative (Negative); Nitrite,Urine Negative (Negative); Protein,Urine Trace (Negative); Specific Gravity,Urine 1.035 (1.001-1.035); Urobilinogen,Urine <2.0 mg/dL (<2.0)
--- NOTE | 2021-02-14 12:02 | P.PN ---
Subjective Progress Note Date: 02/14/21 Patient is feeling better today. Shortness of breath is improving. Objective - Vital Signs Vital signs: Vital Signs Temp 97.4 F L 02/14/21 08:00 Pulse 102 H 02/14/21 11:52 Resp 18 02/14/21 08:00 BP 122/74 02/14/21 08:00 Pulse Ox 100 02/14/21 08:00 Intake & Output 02/13/21 02/14/21 02/14/21 18:59 06:59 18:59 Intake Total 150 Balance 150 Weight 54.431 kg Intake: IV 150 Sodium Chloride 0.9% 1, 150 000 ml @ 75 mls/hr IV . [id number] [facility] Rx#:[id number] - Exam General: The patient is awake and alert, in no distress Eye: there is normal conjunctiva bilaterally. Neck: The neck is supple, there is no JVD. Cardiovascular: Normal S1-S2, no S3-S4, no murmurs. Respiratory: Lungs clear to auscultation bilaterally Gastrointestinal: Abdomen is soft, nontender Musculoskeletal: There is no pedal edema. Neurological:. Speech is normal. Skin: Skin is warm and dry - Labs CBC & Chem 7: 02/14/21 05:55 02/14/21 05:55 Labs: Abnormal Lab Results - Last 24 Hours (Table) 02/13/21 02/13/21 02/13/21 Range/Units 13:57 13:57 13:57 WBC (4.50-10.00) X 10*3/uL RBC 2.86 L (3.80-5.40) m/uL Hgb 8.4 L (11.4-16.0) gm/dL Hct 25.9 L (34.0-46.0) % MCH (27.0-32.0) pg MCHC (32.0-37.0) g/dL RDW 29.5 H (11.5-15.5) % Absolute Nucleated RBC (0.00-0.00) X 10*3/uL Blast Cells % 3 H* % Lymphocytes # (Manual) 0.70 L (1.0-4.8) k/uL Monocytes # (Manual) (0.20-1.00) X 10*3/uL Eosinophils # (Manual) (0.04-0.35) X 10*3/uL Blast Cells # (Man) 0.15 H (0) k/uL Nucleated RBCs 5 H (0-0) /100 WBC NRBC/100 WBC Diff (0.0-0.0) /100 WBCS APTT 20.9 L (22.0-30.0) sec D-Dimer (<0.60) mg/L FEU Sodium 132 L (137-145) mmol/L BUN 5 L (7-17) mg/dL Creatinine 0.42 L (0.52-1.04) mg/dL BUN/Creatinine Ratio (12.00-20.00) Ratio Glucose 145 H (74-99) mg/dL Plasma Lactic Acid Alex (0.7-2.0) mmol/L Calcium (8.7-10.3) mg/dL Total Bilirubin (0.3-1.2) mg/dL Total Protein 5.8 L (6.3-8.2) g/dL Albumin 3.0 L (3.5-5.0) g/dL Albumin/Globulin Ratio (1.60-3.17) g/dL Urine Protein (Negative) Urine Glucose (UA) (Negative) 02/13/21 02/13/21 02/14/21 Range/Units 13:57 14:48 05:55 WBC (4.50-10.00) X 10*3/uL RBC (3.80-5.40) m/uL Hgb (11.4-16.0) gm/dL Hct (34.0-46.0) % MCH (27.0-32.0) pg MCHC (32.0-37.0) g/dL RDW (11.5-15.5) % Absolute Nucleated RBC (0.00-0.00) X 10*3/uL Blast Cells % % Lymphocytes # (Manual) (1.0-4.8) k/uL Monocytes # (Manual) (0.20-1.00) X 10*3/uL Eosinophils # (Manual) (0.04-0.35) X 10*3/uL Blast Cells # (Man) (0) k/uL Nucleated RBCs (0-0) /100 WBC NRBC/100 WBC Diff (0.0-0.0) /100 WBCS APTT (22.0-30.0) sec D-Dimer 1.29 H (<0.60) mg/L FEU Sodium (137-145) mmol/L BUN (7-17) mg/dL Creatinine 0.4 L (0.52-1.04) mg/dL BUN/Creatinine Ratio 25.00 H (12.00-20.00) Ratio Glucose 219 H (74-99) mg/dL Plasma Lactic Acid Alex 2.2 H* (0.7-2.0) mmol/L Calcium 8.2 L (8.7-10.3) mg/dL Total Bilirubin 0.2 L (0.3-1.2) mg/dL Total Protein 5.3 L (6.3-8.2) g/dL Albumin 3.20 L (3.5-5.0) g/dL Albumin/Globulin Ratio 1.52 L (1.60-3.17) g/dL Urine Protein (Negative) Urine Glucose (UA) (Negative) 02/14/21 02/14/21 Range/Units 05:55 10:30 WBC 2.88 L (4.50-10.00) X 10*3/uL RBC 2.48 L (3.80-5.40) m/uL Hgb 6.6 L* (11.4-16.0) gm/dL Hct 22.8 L (34.0-46.0) % MCH 26.6 L (27.0-32.0) pg MCHC 28.9 L (32.0-37.0) g/dL RDW 32.7 H (11.5-15.5) % Absolute Nucleated RBC 0.21 H (0.00-0.00) X 10*3/uL Blast Cells % % Lymphocytes # (Manual) 0.23 L (1.0-4.8) k/uL Monocytes # (Manual) 0 L (0.20-1.00) X 10*3/uL Eosinophils # (Manual) 0.03 L (0.04-0.35) X 10*3/uL Blast Cells # (Man) (0) k/uL Nucleated RBCs (0-0) /100 WBC NRBC/100 WBC Diff 7.3 H (0.0-0.0) /100 WBCS APTT (22.0-30.0) sec D-Dimer (<0.60) mg/L FEU Sodium (137-145) mmol/L BUN (7-17) mg/dL Creatinine (0.52-1.04) mg/dL BUN/Creatinine Ratio (12.00-20.00) Ratio Glucose (74-99) mg/dL Plasma Lactic Acid Alex (0.7-2.0) mmol/L Calcium (8.7-10.3) mg/dL Total Bilirubin (0.3-1.2) mg/dL Total Protein (6.3-8.2) g/dL Albumin (3.5-5.0) g/dL Albumin/Globulin Ratio (1.60-3.17) g/dL Urine Protein Trace H (Negative) Urine Glucose (UA) 4+ H (Negative) Assessment and Plan Assessment: 1. Acute on chronic COPD exacerbation with hypoxia: Oxygen bronchodilators IV s teroids and antibiotics with Rocephin and Zithromax. CT chest negative for pulmonary embolism. 2. Bilateral patchy pneumonia unspecified organism: Start Rocephin and Zithromax. Pro-calcitonin pending 3. 9 mm pulmonary nodule right upper lobe with hilar nodes: Supportive care, needs follow-up as an outpatient. 4. Lactic acidosis secondary to infection without evidence of sepsis: Resolved with IV fluid hydration. 5. Hypovolemic hyponatremia: Resolved 6. Anemia, chronic, likely iron deficiency: Hemoglobin 7.5 as an outpatient 2 days ago, currently 8.4, monitor H&H and transfuse as indicated. Start PPI. Hematology consulted for further evaluation DVT: SCDs Disposition: Home in 1-2 days, pending clinical progression
--- NOTE | 2021-02-14 12:11 | P.CNPUL ---
History of Present Illness Consult date: 02/14/21 Requesting physician: Narciso Swain Reason for consult: dyspnea Chief complaint: Shortness of breath History of present illness: This is a 60-year-old female, familiar to my service, I have seen this patient for the first time back in August of 2020, and she was seen in my office mostly for COPD symptoms. During her initial evaluation, patient was noted to be pale, tachycardic, and she was also noted to have severe COPD with FEV1 of 35% at best. Patient was advised to get full evaluation of her hematologic status, and I recommended at the time is CBC. Hemoglobin came back 5.5, and I recommended that the patient goes to the ER for blood transfusion. Patient was seen in the ER on 08/08/20, and she was admitted. Seen by oncology/hematology for her iron deficiency anemia she was also seen by gastroenterology. Patient underwent EGD and she underwent colonoscopy. She was found to have mild gastritis and 2 polyps removed from the rectum with hot snare polypectomy. Patient did not have a clear-cut explanation for her iron deficiency anemia, and she was advised to follow-up with hematology. She has been receiving iron infusions given to her by hematology, and she was even considered for possible bone marrow aspiration and biopsy. This has not been done. Patient saw me in the office recently for also shortness of breath, and I recommended a repeat CBC were and the hemoglobin came back 7.5. Information was sent to her primary care physician, and her primary care physician recommended that she goes to the ER. Patient was seen in the ER again this time, and her repeat hemoglobin was above 8.5. Hence she does not require blood transfusion. However considering the patient was short of breath, and considering her CT of the chest questioned patchy peripheral infiltrates, and groundglass changes in the right lower lobe, patient was admitted, and this consult was initiated. Clinically the patient does not have any symptoms to suggest pneumonia, she clearly has severe COPD, and considering the presentation I was asked to see the patient on consultation. Patient denies any cough, denies any fever, no chills, no hemoptysis, no chest pain. Patient was admitted, pro-calcitonin level is pending. She is now empirically on antibiotics. Again looking back at my notes from the office, patient has severe COPD FEV1 of 35%, she has low DLCO in the range of 29%, and she has hyperinflation CONSISTENT with severe emphysema. Review of Systems Review of Systems Constitutional: Reports fatigue, Reports weakness Eyes: denies blurred vision, denies pain Ears: deny: decreased hearing, ear discharge, earache, tinnitus Ears, nose, mouth and throat: Denies headache, Denies sore throat Cardiovascular: Dyspnea and tachycardia upon any exertion. Respiratory: Reports dyspnea, chronic. Gastrointestinal: Denies abdominal pain, Denies diarrhea, Denies nausea, Denies vomiting Genitourinary: Denies dysuria, Denies hematuria Menstruation: Reports postmenopausal Musculoskeletal: Reports muscle weakness Integumentary: Denies pruritus, Denies rash Neurological: Reports weakness Psychiatric: Negative Endocrine: Denies fatigue, Denies weight change Hematologic/Lymphatic: As noted in HPI. Past Medical History Past Medical History: COPD Additional Past Medical History / Comment(s): Pancytopenia, iron deficiency anemia, COPD History of Any Multi-Drug Resistant Organisms: None Reported Past Surgical History: No Surgical Hx Reported Additional Past Surgical History / Comment(s): tooth extraction Past Anesthesia/Blood Transfusion Reactions: No Reported Reaction Additional Past Anesthesia/Blood Transfusion Reaction / Comment(s): unknown family hx-pt is adopted Past Psychological History: Depression Smoking Status: Never smoker Past Alcohol Use History: None Reported Past Drug Use History: None Reported - Past Family History Father History Unknown: Yes Additional Family Medical History / Comment(s): unknown, adopted at Mother History Unknown: Yes Additional Family Medical History / Comment(s): unknown, adopted at Medications and Allergies Home Medications Medication Instructions Recorded Confirmed Type Albuterol Inhaler [Ventolin Hfa 2 puff INHALATION RT-Q4H PRN 08/08/20 02/13/21 History Inhaler] Ferrous Sulfate [Slow Fe] 142 mg PO BID 08/19/20 02/13/21 History Tiotropium [place] [Spiriva] 1 cap INHALATION RT-DAILY 01/22/21 02/13/21 History Ipratropium-Albuterol Nebulize 3 ml INHALATION RT-QID #1 box 01/26/21 02/13/21 Rx [Duoneb 0.5 mg-3 mg/3 ml Soln] Allergies Allergy/AdvReac Type Severity Reaction Status Date / Time ferumoxytol Allergy Severe Rash/Hives Verified 02/13/21 14:51 Physical Exam Vitals: Vital Signs Temp Pulse Pulse Resp BP BP Pulse Ox 02/14/21 08:06 100 02/14/21 08:00 97.4 F L 99 18 122/74 100 02/14/21 07:56 99 100 02/14/21 01:45 97.6 F 105 H 14 98/59 93 L 02/14/21 01:29 101 H 02/14/21 01:19 101 H 02/14/21 00:00 110 H 02/13/21 23:23 97.6 F 107 H 15 108/69 96 02/13/21 20:00 110 H 20 110/68 97 02/13/21 19:21 113 H 20 103/65 96 02/13/21 18:23 110 H 02/13/21 18:12 100 02/13/21 18:04 98.6 F 108 H 18 107/81 96 02/13/21 15:04 98.7 F 120 H 24 123/61 89 L 02/13/21 13:17 98.2 F 119 H 22 97/63 94 L Intake and Output 02/13/21 02/14/21 02/14/21 22:59 06:59 14:59 Intake Total 150 Balance 150 Intake: IV 150 Sodium Chloride 0.9% 1, 150 000 ml @ 75 mls/hr IV . [id number] [facility] Rx#:[id number] Other: Weight 54.431 kg GENERAL EXAM: Alert, very pleasant, 60-year-old white female, on room air, in no distress. HEAD: Normocephalic/atraumatic. EENT: PERRLA, EOMI, nonicteric, neck masses, no JVD, noted be slightly pale. CHEST: No chest wall deformity. Symmetrical expansion. LUNGS: Equal air entry with diminished breath sounds at the bases bilaterally. CVS: Regular rate and rhythm, normal S1 and S2, no gallops, no murmurs, no rubs ABDOMEN: Soft, nontender. No hepatosplenomegaly, normal bowel sounds, no guarding or rigidity. EXTREMITIES: No clubbing, no edema, no cyanosis, 2+ pulses and upper and lower extremities. MUSCULOSKELETAL: Muscle strength and tone normal. SPINE: No scoliosis or deformity SKIN: No rashes CENTRAL NERVOUS SYSTEM: Alert oriented 3 no gross focal deficits. PSYCHIATRIC: Normal mood affect and normal mental status examination. Results - Laboratory Findings CBC and BMP: 02/14/21 05:55 02/14/21 05:55 PT/INR, D-dimer PT 11.4 sec (9.0-12.0) 02/13/21 13:57 INR 1.1 (<1.2) 02/13/21 13:57 D-Dimer 1.29 mg/L FEU (<0.60) H 02/13/21 14:48 Abnormal lab findings: Abnormal Labs 02/13/21 02/13/21 02/13/21 13:57 13:57 13:57 WBC RBC 2.86 L Hgb 8.4 L Hct 25.9 L MCH MCHC RDW 29.5 H Absolute Nucleated RBC Blast Cells % 3 H* Lymphocytes # (Manual) 0.70 L Monocytes # (Manual) Eosinophils # (Manual) Blast Cells # (Man) 0.15 H Nucleated RBCs 5 H NRBC/100 WBC Diff APTT 20.9 L D-Dimer Sodium 132 L BUN 5 L Creatinine 0.42 L BUN/Creatinine Ratio Glucose 145 H Plasma Lactic Acid Alex Calcium Total Bilirubin Total Protein 5.8 L Albumin 3.0 L Albumin/Globulin Ratio Urine Protein Urine Glucose (UA) 02/13/21 02/13/21 02/14/21 13:57 14:48 05:55 WBC RBC Hgb Hct MCH MCHC RDW Absolute Nucleated RBC Blast Cells % Lymphocytes # (Manual) Monocytes # (Manual) Eosinophils # (Manual) Blast Cells # (Man) Nucleated RBCs NRBC/100 WBC Diff APTT D-Dimer 1.29 H Sodium BUN Creatinine 0.4 L BUN/Creatinine Ratio 25.00 H Glucose 219 H Plasma Lactic Acid Alex 2.2 H* Calcium 8.2 L Total Bilirubin 0.2 L Total Protein 5.3 L Albumin 3.20 L Albumin/Globulin Ratio 1.52 L Urine Protein Urine Glucose (UA) 02/14/21 02/14/21 05:55 10:30 WBC 2.88 L RBC 2.48 L Hgb 6.6 L* Hct 22.8 L MCH 26.6 L MCHC 28.9 L RDW 32.7 H Absolute Nucleated RBC 0.21 H Blast Cells % Lymphocytes # (Manual) 0.23 L Monocytes # (Manual) 0 L Eosinophils # (Manual) 0.03 L Blast Cells # (Man) Nucleated RBCs NRBC/100 WBC Diff 7.3 H APTT D-Dimer Sodium BUN Creatinine BUN/Creatinine Ratio Glucose Plasma Lactic Acid Alex Calcium Total Bilirubin Total Protein Albumin Albumin/Globulin Ratio Urine Protein Trace H Urine Glucose (UA) 4+ H - Diagnostic Findings CT scan - chest: image reviewed (As noted in HPI.) Assessment and Plan Assessment: Impression: Acute on chronic hypoxic respiratory failure secondary to underlying severe COPD/emphysema, exacerbated by severe iron deficiency anemia. And possible pneumonia although the clinical history is not suggestive of pneumonia. Possible acute committee acquired pneumonia as noted on the CT of the chest, however the patient has no clinical symptoms whatsoever to suggest pneumonia. Abnormal CT angiogram of the chest with hilar adenopathy, possibly reactive, doubt malignancy. There is also a 9 mm nodule which could be seen and followed on outpatient basis. Hypovolemic hyponatremia. Chronic iron deficiency anemia, repeat hemoglobin after admission is now 6.6, patient may need to be transfused, and needs to be seen by oncology again. Previous nondiagnostic GI workup including EGD and colonoscopy. Recommendation: Continue present course of treatment including bronchodilators. Continue empiric antibiotics, and if pro calcitonin level is low could consider stopping antibiotics. Hematology to see the patient on consultation for her chronic iron deficiency anemia Transfused to maintain a hemoglobin of above 7. Patient may benefit from iron infusions again. We will continue to follow. Reviewed PFT and previous workup in my office again she has an FEV1 of 35% at best. Time with Patient: Greater than 30
--- NOTE | 2021-02-14 12:45 | P.CONS ---
History of Present Illness - Reason for Consult Consult date: 02/14/21 anemia, pancytopenia - History of Present Illness 70-year-old white female, well known to our service. She was was originally referred to Dr. Pathak referred by Dr Baldwin for evaluation of Leukopenia/Neutropenia, Marcrocytosis and Thrombocytopenia. Hematology history is as follows: She denied knowledge of prior Hematologic abnormality, but CBC done March 2017 revealed very similar pattern with WBC of 3.9, Neut 0.9, HGB 15.5 with MCV of 109 and PLT of 81K. She stated feeling well and being fully active, denies any prior liver disease, admitted having heavy alcohol consumption in past (12 beers/day) up to 10 years ago, when she stated she quit. She smoked 1/2 PPD now, smoked 1 PPD for 40 years before. Denies anorexia or weight loss, no fever, chills or night sweats. 04/03/19: Feels very tired. Could not have MRI of liver (Copay too big, according to patient). 09/04/20: Was hospitalized at [facility] with severe anemia (HGB 4.7) > Colonoscopy/EGD > No definitive bleeding, given PRBC X 3 > started on oral iron (Slow FE) > well tolerated Last office visit was 10/02/20: Feels well, stronger, on iron (Slow Fe) daily. Her iron studies continue to show iron deficiency anemia, she apparently had an adverse reaction to faraheme in the past so she is very hesitant to proceed with IV iron, however she is either not adherent to taking or she is not absorbing therefore re-trial while in hospital with different preparation and premedication was discussed with patient and Dr. Briceno, will premedicate and administer tomorrow. CBC also revealed abnormalities in the differential with lymphocytopenia, and 2% peripher blasts. As above. The patient was admitted to the hospital in late 01/24 with progressive iron deficiency anemia. She was initially very reluctant to take IV iron, but subsequently was agreeable to take Ferrelcit which is the preparation on pulmonary in the hospital. She was reassured that was a different chemical compound. She also received premedication. She got 3 doses which she tolerated well. During her admission her CBC did show a left shift, which was felt to be transient and reactive due to the stress of iron deficiency anemia on bone marrow damage at baseline from EtOH. Differential did show improvement even during her hospitalization. Post discharge the patient did follow-up in the office at this time hemoglobin had improved to 10. She states over the past few days she has had progressive shortness of breath, with intermittent cough and occasional wheezing. Hemoglobin is an outpatient was found to be 7.52. The patient was sent in for possible blood transfusion. On assessment she appeared to be having COPD exacerbation. Repeat hemoglobin was actually in the 8 range. The patient was admitted and started on treatment for COPD exacerbation. Repeat hemoglobin this morning was 6.6. She has had no obvious bleeding. She has been continuing on oral iron. Chest x-ray and then CTA showed bilateral interstitial opacities. CT was negative for PE. Mildly large hilar lymph nodes in the 2 cm range were seen, which are felt to be more likely reactive given the parenchymal changes. Consult was placed for further evaluation and recommendations Review of Systems Constitutional: Reports fatigue Eyes: denies blurred vision, denies pain Ears: deny: decreased hearing, ear discharge, earache, tinnitus Ears, nose, mouth and throat: Denies headache, Denies sore throat Cardiovascular: Reports shortness of breath Respiratory: Reports cough, Reports dyspnea Gastrointestinal: Denies abdominal pain, Denies diarrhea, Denies nausea, Denies vomiting Genitourinary: Denies dysuria, Denies hematuria Menstruation: Reports postmenopausal Musculoskeletal: Reports muscle weakness Integumentary: Denies pruritus, Denies rash Neurological: Reports weakness Psychiatric: Reports anxiety Endocrine: Reports fatigue Hematologic/Lymphatic: Reports as per HPI Past Medical History Past Medical History: COPD Additional Past Medical History / Comment(s): Pancytopenia, iron deficiency anemia, COPD History of Any Multi-Drug Resistant Organisms: None Reported Past Surgical History: No Surgical Hx Reported Additional Past Surgical History / Comment(s): tooth extraction Past Anesthesia/Blood Transfusion Reactions: No Reported Reaction Additional Past Anesthesia/Blood Transfusion Reaction / Comm: unknown family hx- pt is adopted Past Psychological History: Depression Smoking Status: Never smoker Past Alcohol Use History: None Reported Past Drug Use History: None Reported - Past Family History Father History Unknown: Yes Additional Family Medical History / Comment(s): unknown, adopted at Mother History Unknown: Yes Additional Family Medical History / Comment(s): unknown, adopted at Medications and Allergies Home Medications Medication Instructions Recorded Confirmed Type Albuterol Inhaler [Ventolin Hfa 2 puff INHALATION RT-Q4H PRN 08/08/20 02/13/21 History Inhaler] Ferrous Sulfate [Slow Fe] 142 mg PO BID 08/19/20 02/13/21 History Tiotropium [place] [Spiriva] 1 cap INHALATION RT-DAILY 01/22/21 02/13/21 History Ipratropium-Albuterol Nebulize 3 ml INHALATION RT-QID #1 box 01/26/21 02/13/21 Rx [Duoneb 0.5 mg-3 mg/3 ml Soln] Allergies Allergy/AdvReac Type Severity Reaction Status Date / Time ferumoxytol Allergy Severe Rash/Hives Verified 02/13/21 14:51 Physical Exam Vitals: Vital Signs Temp Pulse Pulse Resp BP BP Pulse Ox 02/14/21 08:06 100 02/14/21 08:00 97.4 F L 99 18 122/74 100 02/14/21 07:56 99 100 02/14/21 01:45 97.6 F 105 H 14 98/59 93 L 02/14/21 01:29 101 H 02/14/21 01:19 101 H 02/14/21 00:00 110 H 02/13/21 23:23 97.6 F 107 H 15 108/69 96 02/13/21 20:00 110 H 20 110/68 97 02/13/21 19:21 113 H 20 103/65 96 02/13/21 18:23 110 H 02/13/21 18:12 100 02/13/21 18:04 98.6 F 108 H 18 107/81 96 02/13/21 15:04 98.7 F 120 H 24 123/61 89 L 02/13/21 13:17 98.2 F 119 H 22 97/63 94 L Intake and Output 02/13/21 02/14/21 02/14/21 22:59 06:59 14:59 Intake Total 150 Balance 150 Intake: IV 150 Sodium Chloride 0.9% 1, 150 000 ml @ 75 mls/hr IV . [id number] CHRISTINE Rx#:[id number] Other: Weight 54.431 kg - Constitutional General appearance: no acute distress - EENT Eyes: EOMI, PERRLA ENT: hearing grossly normal, normal oropharynx - Neck Neck: no lymphadenopathy Thyroid: bilateral: normal size - Respiratory Respiratory: bilateral: diminished, wheezing - Cardiovascular Rhythm: regular Heart sounds: normal: S1, S2 - Gastrointestinal General gastrointestinal: normal bowel sounds, soft - Integumentary Integumentary: normal - Neurologic Neurologic: CNII-XII intact - Musculoskeletal Musculoskeletal: generalized weakness, strength equal bilaterally - Psychiatric Psychiatric: A&O x's 3 Results CBC & Chem 7: 02/14/21 05:55 02/14/21 05:55 Labs: Abnormal Lab Results - Last 24 Hours (Table) 02/13/21 02/13/21 02/13/21 Range/Units 13:57 13:57 13:57 WBC (4.50-10.00) X 10*3/uL RBC 2.86 L (3.80-5.40) m/uL Hgb 8.4 L (11.4-16.0) gm/dL Hct 25.9 L (34.0-46.0) % MCH (27.0-32.0) pg MCHC (32.0-37.0) g/dL RDW 29.5 H (11.5-15.5) % Absolute Nucleated RBC (0.00-0.00) X 10*3/uL Blast Cells % 3 H* % Lymphocytes # (Manual) 0.70 L (1.0-4.8) k/uL Monocytes # (Manual) (0.20-1.00) X 10*3/uL Eosinophils # (Manual) (0.04-0.35) X 10*3/uL Blast Cells # (Man) 0.15 H (0) k/uL Nucleated RBCs 5 H (0-0) /100 WBC NRBC/100 WBC Diff (0.0-0.0) /100 WBCS APTT 20.9 L (22.0-30.0) sec D-Dimer (<0.60) mg/L FEU Sodium 132 L (137-145) mmol/L BUN 5 L (7-17) mg/dL Creatinine 0.42 L (0.52-1.04) mg/dL BUN/Creatinine Ratio (12.00-20.00) Ratio Glucose 145 H (74-99) mg/dL Plasma Lactic Acid Alex (0.7-2.0) mmol/L Calcium (8.7-10.3) mg/dL Total Bilirubin (0.3-1.2) mg/dL Total Protein 5.8 L (6.3-8.2) g/dL Albumin 3.0 L (3.5-5.0) g/dL Albumin/Globulin Ratio (1.60-3.17) g/dL Urine Protein (Negative) Urine Glucose (UA) (Negative) 02/13/21 02/13/21 02/14/21 Range/Units 13:57 14:48 05:55 WBC (4.50-10.00) X 10*3/uL RBC (3.80-5.40) m/uL Hgb (11.4-16.0) gm/dL Hct (34.0-46.0) % MCH (27.0-32.0) pg MCHC (32.0-37.0) g/dL RDW (11.5-15.5) % Absolute Nucleated RBC (0.00-0.00) X 10*3/uL Blast Cells % % Lymphocytes # (Manual) (1.0-4.8) k/uL Monocytes # (Manual) (0.20-1.00) X 10*3/uL Eosinophils # (Manual) (0.04-0.35) X 10*3/uL Blast Cells # (Man) (0) k/uL Nucleated RBCs (0-0) /100 WBC NRBC/100 WBC Diff (0.0-0.0) /100 WBCS APTT (22.0-30.0) sec D-Dimer 1.29 H (<0.60) mg/L FEU Sodium (137-145) mmol/L BUN (7-17) mg/dL Creatinine 0.4 L (0.52-1.04) mg/dL BUN/Creatinine Ratio 25.00 H (12.00-20.00) Ratio Glucose 219 H (74-99) mg/dL Plasma Lactic Acid Alex 2.2 H* (0.7-2.0) mmol/L Calcium 8.2 L (8.7-10.3) mg/dL Total Bilirubin 0.2 L (0.3-1.2) mg/dL Total Protein 5.3 L (6.3-8.2) g/dL Albumin 3.20 L (3.5-5.0) g/dL Albumin/Globulin Ratio 1.52 L (1.60-3.17) g/dL Urine Protein (Negative) Urine Glucose (UA) (Negative) 02/14/21 02/14/21 Range/Units 05:55 10:30 WBC 2.88 L (4.50-10.00) X 10*3/uL RBC 2.48 L (3.80-5.40) m/uL Hgb 6.6 L* (11.4-16.0) gm/dL Hct 22.8 L (34.0-46.0) % MCH 26.6 L (27.0-32.0) pg MCHC 28.9 L (32.0-37.0) g/dL RDW 32.7 H (11.5-15.5) % Absolute Nucleated RBC 0.21 H (0.00-0.00) X 10*3/uL Blast Cells % % Lymphocytes # (Manual) 0.23 L (1.0-4.8) k/uL Monocytes # (Manual) 0 L (0.20-1.00) X 10*3/uL Eosinophils # (Manual) 0.03 L (0.04-0.35) X 10*3/uL Blast Cells # (Man) (0) k/uL Nucleated RBCs (0-0) /100 WBC NRBC/100 WBC Diff 7.3 H (0.0-0.0) /100 WBCS APTT (22.0-30.0) sec D-Dimer (<0.60) mg/L FEU Sodium (137-145) mmol/L BUN (7-17) mg/dL Creatinine (0.52-1.04) mg/dL BUN/Creatinine Ratio (12.00-20.00) Ratio Glucose (74-99) mg/dL Plasma Lactic Acid Alex (0.7-2.0) mmol/L Calcium (8.7-10.3) mg/dL Total Bilirubin (0.3-1.2) mg/dL Total Protein (6.3-8.2) g/dL Albumin (3.5-5.0) g/dL Albumin/Globulin Ratio (1.60-3.17) g/dL Urine Protein Trace H (Negative) Urine Glucose (UA) 4+ H (Negative) Chest x-ray: report reviewed CT scan - chest: report reviewed Assessment and Plan (1) COPD exacerbation Narrative/Plan: The patient's presentation with progressive shortness of breath and cough is most likely due to COPD exacerbation. Chest x-ray and computed tomography scan raises the possibility of interstitial pneumonitis. COVID serology was negative - At this time it is more likely that her progressive shortness of breath is due to her pulmonary issues rather than the anemia as the patient has had hemoglobin in that range before without evidence of acute respiratory failure. However it is likely, at least to some extent a contributing factor - Defer to the admitting service for further management in this Current Visit: Yes Status: Acute Code(s): J44.1 - CHRONIC OBSTRUCTIVE PULMONARY DISEASE W (ACUTE) EXACERBATION SNOMED Code(s): 415317646 (2) Anemia Narrative/Plan: The patient has had recurrent drop in hemoglobin. She did have improvement after iron infusions in late 01/24. Given the clinical picture of improvement followed by drop, this likely represents her ongoing issues with iron deficiency. GI workup in 08/24 was mostly negative. - Repeat CBC at 1300. If hemoglobin is less than 7, we'll proceed with blood transfusion - If greater than 7 hold off on transfusion, and repeat IV iron. Patient will likely need more aggressive supplementation, to be continued as an outpatient. Current Visit: Yes Status: Acute Code(s): D64.9 - ANEMIA, UNSPECIFIED SNOMED Code(s): 605911541 (3) Pancytopenia Narrative/Plan: This is mostly at baseline, and felt to be due to underlying bone marrow damage from prior heavy EtOH use. During this admission a left shift with increased nucleated RBCs are seen. This is again felt to be transient and reactive due to the effect of acute drop in hemoglobin. Continue to monitor Current Visit: No Status: Chronic Priority: Medium Code(s): D61.818 - OTHER PANCYTOPENIA SNOMED Code(s): 149578931 Plan: Defer to the admitting service for management of other medical problems
[2021-02-14 13:41] LABS: HGB 7.7 gm/dL (11.4-16.0); MCH 27.9 pg (25.0-35.0); MCHC 29.7 g/dL (31.0-37.0); RBC 2.77 m/uL (3.80-5.40)
[2021-02-14 13:42] LABS: Anisocytosis Marked; Hypochromasia Marked; Macrocytosis Moderate; Mean Platelet Volume 8.7; Microcytosis Slight; Platelet Count 176 k/uL (150-450); Poikilocytosis Moderate; RDW 29.7 % (11.5-15.5)
[2021-02-14 15:09] LABS: Lymphocytes # (M) 0.31 k/uL (1.0-4.8); Mixed Population RBC Present; Monocytes # (M) 0.12 k/uL (0-1.0); Neutrophils # (M) 3.51 k/uL (1.3-7.7); Neutrophils % (M) 90 %; Nucleated Red Blood Cells 2 /100 WBC (0-0); RBC Fragments Present; Rouleaux Present; Total Cells Counted 200; WBC 3.9 k/uL (3.8-10.6)
[2021-02-14 15:10] LABS: Polychromasia Present; Spherocytes Present
[2021-02-14] MEDS ORDERED: AZITHROMYCIN 500 MG in SODIUM CHLORIDE 0.9% 250 ML IVPB SCH (20:00)
[2021-02-14 21:35] LABS: % Iron Saturation 5.09 (12.00-45.00)
[2021-02-15] MEDS: IPRATROPIUM-ALBUTEROL 3 ML NEB INHALATION SCH ×6 (01:09→20:55)
[2021-02-15] MEDS: methylPREDNISolone SOD SUCCI 40 MG/ML 1 ML VIAL IV SCH (07:19)
[2021-02-15] MEDS: FERROUS SULFATE 325 MG TAB PO SCH (07:19)
[2021-02-15] MEDS: PANTOPRAZOLE 40 MG/10 ML VIAL IVP SCH (07:19)
[2021-02-15] MEDS: AZITHROMYCIN 250 MG TAB PO SCH (09:33)
--- NOTE | 2021-02-15 10:15 | P.PN ---
Subjective Patient is doing fairly well today. She is still having dyspnea with exertion. Hemoglobin from this morning is still pending. Patient denies any wheezing or shortness of breath at rest. Objective - Vital Signs Vital signs: Vital Signs Temp 97.5 F L 02/15/21 07:48 Pulse 95 02/15/21 07:48 Resp 18 02/15/21 08:00 BP 108/62 02/15/21 07:48 Pulse Ox 99 02/15/21 07:48 Intake & Output 02/14/21 02/15/21 02/15/21 18:59 06:59 18:59 Intake Total 630 Balance 630 Intake: IV 150 Sodium Chloride 0.9% 1, 150 000 ml @ 75 mls/hr IV . [id number] [facility] Rx#:[id number] Oral 480 Other: # Voids 2 - Exam General: The patient is awake and alert, in no distress Eye: there is normal conjunctiva bilaterally. Neck: The neck is supple, there is no JVD. Cardiovascular: Normal S1-S2, no S3-S4, no murmurs. Respiratory: Lungs clear to auscultation bilaterally Gastrointestinal: Abdomen is soft, nontender Musculoskeletal: There is no pedal edema. Neurological:. Speech is normal. Skin: Skin is warm and dry - Labs CBC & Chem 7: 02/14/21 12:45 02/14/21 05:55 Labs: Abnormal Lab Results - Last 24 Hours (Table) 02/14/21 02/14/21 02/14/21 Range/Units 05:55 05:55 05:55 WBC 2.88 L (4.50-10.00) X 10*3/uL RBC 2.48 L (4.10-5.20) X 10*6/uL Hgb 6.6 L* (12.0-15.0) g/dL Hct 22.8 L (37.2-46.3) % MCH 26.6 L (27.0-32.0) pg MCHC 28.9 L (32.0-37.0) g/dL RDW 32.7 H (11.5-14.5) % Absolute Nucleated RBC 0.21 H (0.00-0.00) X 10*3/uL Lymphocytes # (Manual) 0.23 L (0.90-5.00) X 10*3/uL Monocytes # (Manual) 0 L (0.20-1.00) X 10*3/uL Eosinophils # (Manual) 0.03 L (0.04-0.35) X 10*3/uL Nucleated RBCs (0-0) /100 WBC NRBC/100 WBC Diff 7.3 H (0.0-0.0) /100 WBCS Creatinine 0.4 L (0.6-1.5) mg/dL BUN/Creatinine Ratio 25.00 H (12.00-20.00) Ratio Glucose 219 H (70-110) mg/dL Calcium 8.2 L (8.7-10.3) mg/dL Iron (50-170) ug/dL TIBC (228-460) ug/dL % Saturation (12.00-45.00) Total Bilirubin 0.2 L (0.3-1.2) mg/dL Total Protein 5.3 L (6.2-8.2) g/dL Albumin 3.20 L (3.80-4.90) g/dL Albumin/Globulin Ratio 1.52 L (1.60-3.17) g/dL Procalcitonin 0.18 H (0.02-0.09) ng/mL Urine Protein (Negative) Urine Glucose (UA) (Negative) 02/14/21 02/14/21 02/14/21 Range/Units 05:55 10:30 12:45 WBC (4.50-10.00) X 10*3/uL RBC 2.77 L (4.10-5.20) X 10*6/uL Hgb 7.7 L (12.0-15.0) g/dL Hct 26.0 L (37.2-46.3) % MCH (27.0-32.0) pg MCHC 29.7 L (32.0-37.0) g/dL RDW 29.7 H (11.5-14.5) % Absolute Nucleated RBC (0.00-0.00) X 10*3/uL Lymphocytes # (Manual) 0.31 L (0.90-5.00) X 10*3/uL Monocytes # (Manual) (0.20-1.00) X 10*3/uL Eosinophils # (Manual) (0.04-0.35) X 10*3/uL Nucleated RBCs 2 H (0-0) /100 WBC NRBC/100 WBC Diff (0.0-0.0) /100 WBCS Creatinine (0.6-1.5) mg/dL BUN/Creatinine Ratio (12.00-20.00) Ratio Glucose (70-110) mg/dL Calcium (8.7-10.3) mg/dL Iron 11 L (50-170) ug/dL TIBC 216 L (228-460) ug/dL % Saturation 5.09 L (12.00-45.00) Total Bilirubin (0.3-1.2) mg/dL Total Protein (6.2-8.2) g/dL Albumin (3.80-4.90) g/dL Albumin/Globulin Ratio (1.60-3.17) g/dL Procalcitonin (0.02-0.09) ng/mL Urine Protein Trace H (Negative) Urine Glucose (UA) 4+ H (Negative) Assessment and Plan Assessment: 1. Acute on chronic COPD exacerbation with hypoxia: Oxygen bronchodilators IV steroids and antibiotics with Rocephin and Zithromax. CT chest negative for pulmonary embolism. 2. Bilateral patchy pneumonia unspecified organism: Start Rocephin and Zithromax. Pro-calcitonin only slightly elevated 3. 9 mm pulmonary nodule right upper lobe with hilar nodes: Supportive care, needs follow-up as an outpatient. 4. Lactic acidosis secondary to infection without evidence of sepsis: Resolved with IV fluid hydration. 5. Hypovolemic hyponatremia: Resolved 6. Anemia, chronic, likely iron deficiency: EGD and colonoscopy in August of this year with no obvious source of bleeding. Patient was seen and evaluated by hematology. May benefit from IV iron Today, I reviewed her medication list and lab work results. Transition steroids to oral prednisone 40 mg daily. Awaiting CBC from today. DVT: SCDs Disposition: Home in 1-2 days, pending clinical progression
[2021-02-15 13:09] LABS: African American GFR (CKD) 130.3 (60.0-200.0); Anion Gap 10.2 mmol/L (4.00-12.00); Calcium 8.6 mg/dL (8.7-10.3); Carbon Dioxide 20.8 mmol/L (21.6-31.8); Non-African American GFR(CKD) 112.4 (60.0-200.0); Potassium 4.4 mmol/L (3.5-5.5)
[2021-02-15 13:16] LABS: Anisocytosis (M) 3+; Basophils # (M) 0 X 10*3/uL (0.00-0.10); Eosinophils # (M) 0 X 10*3/uL (0.04-0.35); HCT 23.2 % (37.2-46.3); HGB 6.6 g/dL (12.0-15.0); Lymphocytes # (M) 0.48 X 10*3/uL (0.90-5.00); MCH 27.3 pg (27.0-32.0); MCHC 28.4 g/dL (32.0-37.0); MCV 95.9 fL (80.0-97.0); Macrocytosis (M) 2+; Microcytosis (M) 2+; Monocytes # (M) 0.12 X 10*3/uL (0.20-1.00); Neutrophils # (M) 3.42 X 10*3/uL (2.00-8.90); Neutrophils % (M) 85 %; Platelet Count 179 X 10*3/uL (140-440); Polychromasia 2+; RBC 2.42 X 10*6/uL (4.10-5.20); RDW 33.2 % (11.5-14.5); Schistocytes 1+; WBC 4.02 X 10*3/uL (4.50-10.00)
--- NOTE | 2021-02-15 13:58 | P.PN ---
Subjective Progress Note Date: 02/15/21 Principal diagnosis: Anemia, shortness of breath, possible community acquired pneumonia This is a 60-year-old female, familiar to my service, I have seen this patient for the first time back in August of 2020, and she was seen in my office mostly for COPD symptoms. During her initial evaluation, patient was noted to be pale, tachycardic, and she was also noted to have severe COPD with FEV1 of 35% at best. Patient was advised to get full evaluation of her hematologic status, and I recommended at the time is CBC. Hemoglobin came back 5.5, and I recommended that the patient goes to the ER for blood transfusion. Patient was seen in the ER on 08/08/20, and she was admitted. Seen by oncology/hematology for her iron deficiency anemia she was also seen by gastroenterology. Patient underwent EGD and she underwent colonoscopy. She was found to have mild gastritis and 2 margaux yps removed from the rectum with hot snare polypectomy. Patient did not have a clear-cut explanation for her iron deficiency anemia, and she was advised to follow-up with hematology. She has been receiving iron infusions given to her by hematology, and she was even considered for possible bone marrow aspiration and biopsy. This has not been done. Patient saw me in the office recently for also shortness of breath, and I recommended a repeat CBC were and the hemoglobin came back 7.5. Information was sent to her primary care physician, and her primary care physician recommended that she goes to the ER. Patient was seen in the ER again this time, and her repeat hemoglobin was above 8.5. Hence she does not require blood transfusion. However considering the patient was short of breath, and considering her CT of the chest questioned patchy peripheral infiltrates, and groundglass changes in the right lower lobe, patient was admitted, and this consult was initiated. Clinically the patient does not have any symptoms to suggest pneumonia, she clearly has severe COPD, and considering the presentation I was asked to see the patient on consultation. Patient denies any cough, denies any fever, no chills, no hemoptysis, no chest pain. Patient was admitted, pro-calcitonin level is pending. She is now empirically on antibiotics. Again looking back at my notes from the office, patient has severe COPD FEV1 of 35%, she has low DLCO in the range of 29%, and she has hyperinflation CONSISTENT with severe emphysema. On 02/15/2021 patient seen in follow-up on the surgical floor. She is breathing comfortably, she is tolerating intubation, she is currently on room air, and she is alternating nasal cannula 2 L, and her pulse ox is 99%, no fever or chills overnight, breathing is nonlabored, she continues on empiric antibiotics, her pro-calcitonin level was low at 0.18, she is on oral prednisone. She is on nebulized bronchodilators, as been on IV iron transfusions, her repeat hemo globin today came back at 6.6 and she will be transfused with 1 unit of packed red blood cells. Denies any chest pain, denies any hemoptysis, no swelling in lower extremities. White count today is 4.0 to on today's labs, hematology is following Objective - Vital Signs Vital signs: Vital Signs Temp 97.5 F L 02/15/21 07:48 Pulse 95 02/15/21 07:48 Resp 18 02/15/21 08:00 BP 108/62 02/15/21 07:48 Pulse Ox 99 02/15/21 07:48 Intake & Output 02/14/21 02/15/21 02/15/21 18:59 06:59 18:59 Intake Total 630 Balance 630 Intake: IV 150 Sodium Chloride 0.9% 1, 150 000 ml @ 75 mls/hr IV . [id number] [facility] Rx#:[id number] Oral 480 Other: # Voids 2 - Exam GENERAL EXAM: Alert, very pleasant, 60-year-old white female, on 2 L of oxygen a pulse ox of 98% comfortable in no apparent distress. HEAD: Normocephalic/atraumatic. EYES: Normal reaction of pupils, equal size. Conjunctiva pink, sclera white. NOSE: Clear with pink turbinates. THROAT: No erythema or exudates. NECK: No masses, no JVD, no thyroid enlargement, no adenopathy. CHEST: No chest wall deformity. Symmetrical expansion. LUNGS: Equal air entry with no crackles, wheeze, rhonchi or dullness. CVS: Regular rate and rhythm, normal S1 and S2, no gallops, no murmurs, no rubs ABDOMEN: Soft, nontender. No hepatosplenomegaly, normal bowel sounds, no guarding or rigidity. EXTREMITIES: No clubbing, no edema, no cyanosis, 2+ pulses and upper and lower extremities. MUSCULOSKELETAL: Muscle strength and tone normal. SPINE: No scoliosis or deformity SKIN: No rashes CENTRAL NERVOUS SYSTEM: Alert and oriented -3. No focal deficits, tone is normal in all 4 extremities. PSYCHIATRIC: Alert and oriented -3. Appropriate affect. Intact judgment and insight. - Labs CBC & Chem 7: 02/15/21 07:11 02/15/21 07:11 Labs: Abnormal Lab Results - Last 24 Hours (Table) 02/14/21 02/14/21 02/14/21 Range/Units 05:55 05:55 12:45 WBC (4.50-10.00) X 10*3/uL RBC (4.10-5.20) X 10*6/uL Hgb (12.0-15.0) g/dL Hct (37.2-46.3) % MCHC (32.0-37.0) g/dL RDW (11.5-14.5) % Absolute Nucleated RBC (0.00-0.00) X 10*3/uL Lymphocytes # (Manual) 0.31 L (1.0-4.8) k/uL Monocytes # (Manual) (0.20-1.00) X 10*3/uL Eosinophils # (Manual) (0.04-0.35) X 10*3/uL Nucleated RBCs 2 H (0-0) /100 WBC NRBC/100 WBC Diff (0.0-0.0) /100 WBCS Carbon Dioxide (21.6-31.8) mmol/L Creatinine (0.6-1.5) mg/dL BUN/Creatinine Ratio (12.00-20.00) Ratio Glucose (70-110) mg/dL Calcium (8.7-10.3) mg/dL Iron 11 L (50-170) ug/dL TIBC 216 L (228-460) ug/dL % Saturation 5.09 L (12.00-45.00) Procalcitonin 0.18 H (0.02-0.09) ng/mL 02/15/21 02/15/21 Range/Units 07:11 07:11 WBC 4.02 L (4.50-10.00) X 10*3/uL RBC 2.42 L (4.10-5.20) X 10*6/uL Hgb 6.6 L* (12.0-15.0) g/dL Hct 23.2 L (37.2-46.3) % MCHC 28.4 L (32.0-37.0) g/dL RDW 33.2 H (11.5-14.5) % Absolute Nucleated RBC 0.57 H (0.00-0.00) X 10*3/uL Lymphocytes # (Manual) 0.48 L (1.0-4.8) k/uL Monocytes # (Manual) 0.12 L (0.20-1.00) X 10*3/uL Eosinophils # (Manual) 0 L (0.04-0.35) X 10*3/uL Nucleated RBCs (0-0) /100 WBC NRBC/100 WBC Diff 14.2 H (0.0-0.0) /100 WBCS Carbon Dioxide 20.8 L (21.6-31.8) mmol/L Creatinine 0.4 L (0.6-1.5) mg/dL BUN/Creatinine Ratio 30.00 H (12.00-20.00) Ratio Glucose 138 H (70-110) mg/dL Calcium 8.6 L (8.7-10.3) mg/dL Iron (50-170) ug/dL TIBC (228-460) ug/dL % Saturation (12.00-45.00) Procalcitonin (0.02-0.09) ng/mL Assessment and Plan Plan: Assessment: #1. Acute on chronic hypoxic respiratory failure secondary to underlying severe COPD/emphysema, exacerbated by severe iron deficiency anemia, and possible pneumonia although the clinical history is not suggestive of pneumonia. #2. Rule out possibility of community-acquired pneumonia, CTA chest showed irregular opacities in the right upper lobe, patchy peripheral and. Patchy peripheral and peribronchial opacities in the mid and lower lungs, and groundglass changes in the right lower lobe. There were 2 irregular opacities in the right upper lobe with the recommendation of 3 months follow-up, and a few enlarged hilar lymph nodes measuring up to 2.4 cm that could possibly be reactive #3. Hypovolemic hyponatremia #4. Chronic iron deficiency anemia, repeat hemoglobin today was 6.6, patient is awaiting transfusion with 1 unit of packed red blood cells #5. Previous nondiagnostic GI workup including EGD and colonoscopy Plan: Continue current medical treatment Continue current antibiotic coverage Her pro-calcitonin level was noted, however her CT chest findings are abnormal Agree with transfusion of one units of packed red blood cells for hemoglobin of 6.6 We'll continue to follow I performed a history & physical examination of the patient and discussed their management with my nurse practitioner, Earnestine Choi. I reviewed the nurse practitioner's note and agree with the documented findings and plan of care. Lung sounds are positive for diminished breath sounds throughout the lung mccoy. The findings and the impression was discussed with the patient. I attest to the documentation by the nurse practitioner. Time with Patient: Less than 30
[2021-02-15 23:30] LABS: Anisocytosis Marked; Hypochromasia Moderate; MCH 28.5 pg (25.0-35.0); MCHC 31.8 g/dL (31.0-37.0); MCV 89.7 fL (80.0-100.0); Macrocytosis Slight; Mean Platelet Volume 13.3; Microcytosis Slight; Platelet Count 198 k/uL (150-450); Poikilocytosis Moderate; RBC 3.23 m/uL (3.80-5.40)
[2021-02-15 23:33] LABS: RDW 27.5 % (11.5-15.5)
[2021-02-15 23:34] LABS: HGB 9.2 gm/dL (11.4-16.0)
[2021-02-16] MEDS: IPRATROPIUM-ALBUTEROL 3 ML NEB INHALATION SCH ×7 (00:18→23:06)
[2021-02-16 01:38] LABS: Neutrophils % (M) 73 %
[2021-02-16 01:40] LABS: Anisocytosis (M) Present; Blast Cells # (M) 0.08 k/uL (0); Eosinophils # (M) 0.04 k/uL (0-0.7); Lymphocytes # (M) 0.95 k/uL (1.0-4.8); Mixed Population RBC Present; Neutrophils # (M) 2.77 k/uL (1.3-7.7); Nucleated Red Blood Cells 41 /100 WBC (0-0); Poikilocytosis (M) Present; Polychromasia Present; Total Cells Counted 200; WBC 3.8 k/uL (3.8-10.6)
[2021-02-16 01:41] LABS: Basophilic Stippling Present; Ovalocytes Present; Tear Drop Cells Present
[2021-02-16 01:42] LABS: Hypochromasia (M) Present
[2021-02-16 06:24] LABS: Anisocytosis Marked; HCT 25.8 % (34.0-46.0); HGB 8.1 gm/dL (11.4-16.0); Hypochromasia Moderate; MCH 28.3 pg (25.0-35.0); MCHC 31.4 g/dL (31.0-37.0); MCV 90.2 fL (80.0-100.0); Macrocytosis Moderate; Mean Platelet Volume 13.4; Microcytosis Slight; Platelet Count 178 k/uL (150-450); Poikilocytosis Moderate; RBC 2.86 m/uL (3.80-5.40)
[2021-02-16 06:35] LABS: African American GFR (CKD) >90 (>60 ml/min/1.73 sqM); Anion Gap 4 mmol/L; Blood Urea Nitrogen 17 mg/dL (7-17); Calcium 8.6 mg/dL (8.4-10.2); Carbon Dioxide 23 mmol/L (22-30); Chloride 108 mmol/L (98-107); Glucose 83 mg/dL (74-99); Non-African American GFR(CKD) >90 (>60 ml/min/1.73 sqM); Potassium 4.3 mmol/L (3.5-5.1); RDW 28.2 % (11.5-15.5); Sodium 135 mmol/L (137-145)
[2021-02-16 07:24] LABS: Anisocytosis (M) Present; Blast Cells # (M) 0.07 k/uL (0); Eosinophils # (M) 0.07 k/uL (0-0.7); Hypochromasia (M) Present; Lymphocytes # (M) 0.96 k/uL (1.0-4.8); Monocytes # (M) 0.07 k/uL (0-1.0); Neutrophils # (M) 2.55 k/uL (1.3-7.7); Neutrophils % (M) 69 %; Nucleated Red Blood Cells 21 /100 WBC (0-0); Ovalocytes Present; Poikilocytosis (M) Present; Polychromasia Present; Target Cells Present; Tear Drop Cells Present; Total Cells Counted 200; WBC 3.7 k/uL (3.8-10.6)
[2021-02-16] MEDS: predniSONE 20 MG TAB PO SCH (07:52)
[2021-02-16] MEDS: PANTOPRAZOLE 40 MG TABLET PO SCH (07:52)
[2021-02-16] MEDS: FERROUS SULFATE 325 MG TAB PO SCH (07:52)
[2021-02-16] MEDS: AZITHROMYCIN 250 MG TAB PO SCH (07:53)
--- NOTE | 2021-02-16 13:37 | XR ---
EXAMINATION TYPE: XR chest 1V portable DATE OF EXAM: 02/16/2021 CLINICAL HISTORY: Difficulty breathing progress study. TECHNIQUE: Single AP portable upright view of the chest is obtained. COMPARISON: Chest x-ray and CTA chest from 3 days earlier FINDINGS: Background chronic emphysematous and pulmonary fibrotic changes redemonstrated. There is n ew small to tiny right pleural effusion. There is associated new right basilar atelectasis and/or inf iltrate. There is new mild interstitial edema with Marcia B lines on background chronic parenchymal f ibrotic changes. Cardiac size stable and within normal limits. Osseous structures somewhat deminerali zed. IMPRESSION: New mild interstitial edema and small to tiny right pleural effusion with associated righ t basilar atelectasis and/or infiltrate on background chronic emphysematous and pulmonary fibrotic ch enal.
--- NOTE | 2021-02-16 14:05 | P.PN ---
Subjective Patient was seen and evaluated by me this morning. She was frustrated as somebody documented in her chart that she has a history of alcohol abuse. Patient told me that she did not drink for the past 11 years. She said that prior to this she used to drink 5 or 6 drinks on the weekends. She is still feeling short of breath with minimal exertion. She was satting 96% on 2 L of oxygen. I took her off of the oxygen on room air and ask her to walk a few steps around the room and quickly patient was visibly dyspneic and O2 sat dropped to 76%. She was placed back on oxygen and in bed with a quick recovery Objective - Vital Signs Vital signs: Vital Signs Temp 97.8 F 02/16/21 08:00 Pulse 84 02/16/21 12:02 Resp 18 02/16/21 08:00 BP 126/69 02/16/21 08:00 Pulse Ox 78 L 02/16/21 09:58 Intake & Output 02/15/21 02/16/21 02/16/21 18:59 06:59 18:59 Intake Total 480 310 Output Total 2 Balance 480 308 Intake: Oral 480 Blood Product 0 310 Rc As-1 Unit 0 310 [id number] Output: Urine 2 - Exam General: The patient is awake and alert, in no distress Eye: there is normal conjunctiva bilaterally. Neck: The neck is supple, there is no JVD. Cardiovascular: Normal S1-S2, no S3-S4, no murmurs. Respiratory: Lungs clear to auscultation bilaterally Gastrointestinal: Abdomen is soft, nontender Musculoskeletal: There is no pedal edema. Neurological:. Speech is normal. Skin: Skin is warm and dry - Labs CBC & Chem 7: 02/16/21 06:05 02/16/21 06:05 Labs: Abnormal Lab Results - Last 24 Hours (Table) 02/15/21 02/15/21 02/16/21 Range/Units 15:03 22:42 06:05 WBC 3.7 L (3.8-10.6) k/uL RBC 3.23 L 2.86 L (3.80-5.40) m/uL Hgb 9.2 L D 8.1 L (11.4-16.0) gm/dL Hct 29.0 L 25.8 L (34.0-46.0) % RDW 27.5 H 28.2 H (11.5-15.5) % Blast Cells % 2 H* 2 H* % Lymphocytes # (Manual) 0.95 L 0.96 L (1.0-4.8) k/uL Blast Cells # (Man) 0.08 H 0.07 H (0) k/uL Nucleated RBCs 41 H 21 H (0-0) /100 WBC Sodium (137-145) mmol/L Chloride (98-107) mmol/L Crossmatch See Detail 02/16/21 Range/Units 06:05 WBC (3.8-10.6) k/uL RBC (3.80-5.40) m/uL Hgb (11.4-16.0) gm/dL Hct (34.0-46.0) % RDW (11.5-15.5) % Blast Cells % % Lymphocytes # (Manual) (1.0-4.8) k/uL Blast Cells # (Man) (0) k/uL Nucleated RBCs (0-0) /100 WBC Sodium 135 L (137-145) mmol/L Chloride 108 H (98-107) mmol/L Crossmatch Assessment and Plan Assessment: 1. Acute on chronic COPD exacerbation with hypoxia: Oxygen bronchodilators IV steroids and antibiotics with Rocephin and Zithromax. CT chest negative for pulmonary embolism. 2. Bilateral patchy pneumonia unspecified organism: Start Rocephin and Zithro max. Pro-calcitonin only slightly elevated 3. 9 mm pulmonary nodule right upper lobe with hilar nodes: Supportive care, needs follow-up as an outpatient. 4. Lactic acidosis secondary to infection without evidence of sepsis: Resolved with IV fluid hydration. 5. Hypovolemic hyponatremia: Resolved 6. Anemia, chronic, likely iron deficiency: EGD and colonoscopy in August of this year with no obvious source of bleeding. Patient was seen and evaluated by hematology. Started on IV iron infusion in this admission. Today, I reviewed her medication list and lab work results. Continue IV iron daily for 3 days Patient will most likely need home O2 at discharge She has consulted us recommendations Discharge planning in 2-3 days
--- NOTE | 2021-02-16 15:01 | P.PN ---
Subjective Progress Note Date: 02/16/21 Principal diagnosis: Anemia, shortness of breath, possible community acquired pneumonia This is a 60-year-old female, familiar to my service, I have seen this patient for the first time back in August of 2020, and she was seen in my office mostly for COPD symptoms. During her initial evaluation, patient was noted to be pale, tachycardic, and she was also noted to have severe COPD with FEV1 of 35% at best. Patient was advised to get full evaluation of her hematologic status, and I recommended at the time is CBC. Hemoglobin came back 5.5, and I recommended that the patient goes to the ER for blood transfusion. Patient was seen in the ER on 08/08/20, and she was admitted. Seen by oncology/hematology for her iron deficiency anemia she was also seen by gastroenterology. Patient underwent EGD and she underwent colonoscopy. She was found to have mild gastritis and 2 margaux yps removed from the rectum with hot snare polypectomy. Patient did not have a clear-cut explanation for her iron deficiency anemia, and she was advised to follow-up with hematology. She has been receiving iron infusions given to her by hematology, and she was even considered for possible bone marrow aspiration and biopsy. This has not been done. Patient saw me in the office recently for also shortness of breath, and I recommended a repeat CBC were and the hemoglobin came back 7.5. Information was sent to her primary care physician, and her primary care physician recommended that she goes to the ER. Patient was seen in the ER again this time, and her repeat hemoglobin was above 8.5. Hence she does not require blood transfusion. However considering the patient was short of breath, and considering her CT of the chest questioned patchy peripheral infiltrates, and groundglass changes in the right lower lobe, patient was admitted, and this consult was initiated. Clinically the patient does not have any symptoms to suggest pneumonia, she clearly has severe COPD, and considering the presentation I was asked to see the patient on consultation. Patient denies any cough, denies any fever, no chills, no hemoptysis, no chest pain. Patient was admitted, pro-calcitonin level is pending. She is now empirically on antibiotics. Again looking back at my notes from the office, patient has severe COPD FEV1 of 35%, she has low DLCO in the range of 29%, and she has hyperinflation CONSISTENT with severe emphysema. On 02/15/2021 patient seen in follow-up on the surgical floor. She is breathing comfortably, she is tolerating intubation, she is currently on room air, and she is alternating nasal cannula 2 L, and her pulse ox is 99%, no fever or chills overnight, breathing is nonlabored, she continues on empiric antibiotics, her pro-calcitonin level was low at 0.18, she is on oral prednisone. She is on nebulized bronchodilators, as been on IV iron transfusions, her repeat hemo globin today came back at 6.6 and she will be transfused with 1 unit of packed red blood cells. Denies any chest pain, denies any hemoptysis, no swelling in lower extremities. White count today is 4.0 to on today's labs, hematology is following On 02/16/2021 patient seen in follow-up on medical surgical floor. She is currently on 2 L of oxygen pulse ox is 98%, breathing comfortably, she did de saturate to 78% on room air with ambulation and does qualify for home oxygen, but icterus seems to be very comfortable, no cognitive chest discomfort, no hemoptysis, yesterday she received 1 unit of blood for hemoglobin of 6.6, repeat hemoglobin last night came back at 9.2, and this morning it is 8.1, platelet count is 178, sodium is 135, potassium is 4.3, renal profile is within normal limits. He continues on azithromycin and Rocephin, oral prednisone was added in addition to nebulized bronchodilators. She has been tolerating ambulation in the room, denies any specific complaints other than shortness of breath with exertion, she has had no fever or chills. Followed by hematology and she has had some iron transfusions. No acute events overnight. Objective - Vital Signs Vital signs: Vital Signs Temp 97.8 F 02/16/21 08:00 Pulse 84 02/16/21 12:02 Resp 18 02/16/21 08:00 BP 126/69 02/16/21 08:00 Pulse Ox 78 L 02/16/21 09:58 Intake & Output 02/15/21 02/16/21 02/16/21 18:59 06:59 18:59 Intake Total 480 310 Output Total 2 Balance 480 308 Intake: Oral 480 Blood Product 0 310 Rc As-1 Unit 0 310 [id number] Output: Urine 2 - Exam GENERAL EXAM: Alert, very pleasant, 60-year-old white female, on 2 L of oxygen a pulse ox of 98% comfortable in no apparent distress. HEAD: Normocephalic/atraumatic. EYES: Normal reaction of pupils, equal size. Conjunctiva pink, sclera white. NOSE: Clear with pink turbinates. THROAT: No erythema or exudates. NECK: No masses, no JVD, no thyroid enlargement, no adenopathy. CHEST: No chest wall deformity. Symmetrical expansion. LUNGS: Equal air entry with no crackles, wheeze, rhonchi or dullness. CVS: Regular rate and rhythm, normal S1 and S2, no gallops, no murmurs, no rubs ABDOMEN: Soft, nontender. No hepatosplenomegaly, normal bowel sounds, no guarding or rigidity. EXTREMITIES: No clubbing, no edema, no cyanosis, 2+ pulses and upper and lower extremities. MUSCULOSKELETAL: Muscle strength and tone normal. SPINE: No scoliosis or deformity SKIN: No rashes CENTRAL NERVOUS SYSTEM: Alert and oriented -3. No focal deficits, tone is normal in all 4 extremities. PSYCHIATRIC: Alert and oriented -3. Appropriate affect. Intact judgment and insight. - Labs CBC & Chem 7: 02/16/21 06:05 02/16/21 06:05 Labs: Abnormal Lab Results - Last 24 Hours (Table) 02/15/21 02/15/21 02/16/21 Range/Units 15:03 22:42 06:05 WBC 3.7 L (3.8-10.6) k/uL RBC 3.23 L 2.86 L (3.80-5.40) m/uL Hgb 9.2 L D 8.1 L (11.4-16.0) gm/dL Hct 29.0 L 25.8 L (34.0-46.0) % RDW 27.5 H 28.2 H (11.5-15.5) % Blast Cells % 2 H* 2 H* % Lymphocytes # (Manual) 0.95 L 0.96 L (1.0-4.8) k/uL Blast Cells # (Man) 0.08 H 0.07 H (0) k/uL Nucleated RBCs 41 H 21 H (0-0) /100 WBC Sodium (137-145) mmol/L Chloride (98-107) mmol/L Crossmatch See Detail 02/16/21 Range/Units 06:05 WBC (3.8-10.6) k/uL RBC (3.80-5.40) m/uL Hgb (11.4-16.0) gm/dL Hct (34.0-46.0) % RDW (11.5-15.5) % Blast Cells % % Lymphocytes # (Manual) (1.0-4.8) k/uL Blast Cells # (Man) (0) k/uL Nucleated RBCs (0-0) /100 WBC Sodium 135 L (137-145) mmol/L Chloride 108 H (98-107) mmol/L Crossmatch Assessment and Plan Plan: Assessment: #1. Acute on chronic hypoxic respiratory failure secondary to underlying severe COPD/emphysema, exacerbated by severe iron deficiency anemia, and possible pneumonia although the clinical history is not suggestive of pneumonia. #2. Rule out possibility of community-acquired pneumonia, CTA chest showed irregular opacities in the right upper lobe, patchy peripheral and. Patchy peripheral and peribronchial opacities in the mid and lower lungs, and groundglass changes in the right lower lobe. There were 2 irregular opacities in the right upper lobe with the recommendation of 3 months follow-up, and a few enlarged hilar lymph nodes measuring up to 2.4 cm that could possibly be reactive #3. Hypovolemic hyponatremia, improved #4. Chronic iron deficiency anemia, repeat hemoglobin today was 6.6, patient is awaiting transfusion with 1 unit of packed red blood cells #5. Previous nondiagnostic GI workup including EGD and colonoscopy Plan: Clinically patient does not appear to be in any acute distress She remains on the same 2 L of oxygen She did qualify for home oxygen on ambulation No fever or chills, blood cultures are negative Continue current antibiotic coverage She will likely need bone marrow biopsy at some point for investigation of her anemia Follow up chest x-ray tomorrow We'll consider discharge home on home oxygen, and antibiotics if remains stable We'll continue to follow I performed a history & physical examination of the patient and discussed their management with my nurse practitioner, Earnestine Choi. I reviewed the nurse practitioner's note and agree with the documented findings and plan of care. Lung sounds are positive for diminished breath sounds throughout the lung mccoy. The findings and the impression was discussed with the patient. I attest to the documentation by the nurse practitioner. Time with Patient: Less than 30
[2021-02-16 20:42] LABS: Ferritin 224.2 ng/mL (10.0-291.0)
[2021-02-17] MEDS: IPRATROPIUM-ALBUTEROL 3 ML NEB INHALATION SCH ×5 (03:37→20:32)
[2021-02-17 06:12] LABS: African American GFR (CKD) >90 (>60 ml/min/1.73 sqM); Anion Gap 3 mmol/L; Blood Urea Nitrogen 13 mg/dL (7-17); Calcium 8.5 mg/dL (8.4-10.2); Carbon Dioxide 25 mmol/L (22-30); Chloride 107 mmol/L (98-107); Glucose 81 mg/dL (74-99); Non-African American GFR(CKD) >90 (>60 ml/min/1.73 sqM); Potassium 4.1 mmol/L (3.5-5.1); Sodium 135 mmol/L (137-145)
[2021-02-17] MEDS: PANTOPRAZOLE 40 MG TABLET PO SCH (07:06)
[2021-02-17] MEDS: FERROUS SULFATE 325 MG TAB PO SCH (08:39)
[2021-02-17] MEDS: predniSONE 20 MG TAB PO SCH (08:39)
[2021-02-17] MEDS: AZITHROMYCIN 250 MG TAB PO SCH (08:39)
--- NOTE | 2021-02-17 09:09 | XR ---
EXAMINATION TYPE: XR chest 1V portable DATE OF EXAM: 02/17/2021 Comparison: 02/16/2021 Clinical History: 60-year-old female shortness of breath Findings: Scattered interstitial opacity and more focal patchy right greater than left bibasilar opacity. Patch y peripheral left midlung opacity. Hyperinflation. No pleural effusion. Density is slightly increased compared to prior exam. Impression: COPD with continued patchy mid and lower lung interstitial infiltrates, possible COVID pneumonia. The re may be slight worsening at the right base.
--- NOTE | 2021-02-17 09:25 | P.PN ---
Subjective Progress Note Date: 02/16/21 Patient's respiratory status is improved, at least at rest. She still appears to get somewhat short of breath on exertion. He continues to have some mild orthopnea. No obvious bleeding. Objective - Vital Signs Vital signs: Vital Signs Temp 98.1 F 02/17/21 06:52 Pulse 88 02/17/21 08:03 Resp 16 02/17/21 06:52 BP 114/71 02/17/21 06:52 Pulse Ox 96 02/17/21 06:52 Intake & Output 02/16/21 02/17/21 02/17/21 18:59 06:59 18:59 Other: # Voids 3 1 - Constitutional General appearance: Present: no acute distress - EENT Eyes: Present: EOMI ENT: Present: hearing grossly normal, normal oropharynx - Respiratory Respiratory: bilateral: rales - Cardiovascular Rhythm: regular Heart sounds: normal: S1, S2 - Gastrointestinal General gastrointestinal: Present: normal bowel sounds, soft - Integumentary Integumentary: Present: normal - Neurologic Neurologic: Present: CNII-XII intact - Musculoskeletal Musculoskeletal: Present: generalized weakness, strength equal bilaterally - Psychiatric Psychiatric: Present: A&O x's 3, appropriate affect - Labs CBC & Chem 7: 02/16/21 06:05 02/17/21 05:45 Labs: Abnormal Lab Results - Last 24 Hours (Table) 02/17/21 Range/Units 05:45 Sodium 135 L (137-145) mmol/L Creatinine 0.42 L (0.52-1.04) mg/dL Assessment and Plan (1) COPD exacerbation Narrative/Plan: Patient's respiratory status is improved, though she still appears to have some shortness of breath on exertion. Defer to admitting service and other consul tants for continued management Current Visit: Yes Status: Acute Code(s): J44.1 - CHRONIC OBSTRUCTIVE PULMONARY DISEASE W (ACUTE) EXACERBATION SNOMED Code(s): 024923863 (2) Anemia Narrative/Plan: The patient did end up receiving 1 unit of PRBC, as hemoglobin on 02/15/21 was 6.6. This has responded appropriately with increased into the 9 range. - Labs show persistent iron deficiency. Patient was advised that he would recommend additional IV iron. She has tolerated Ferrlecit well, and will receive the same with premedication. - The case was discussed with the admitting service, who were evaluating the patient in terms of her respiratory status for potential discharge. If the patient can be discharged, she'll receive the above as an outpatient. If she remains inpatient for her respiratory issues, and this will be ordered inpatient. It was emphasized that her discharge is not dependent on her plans for IV iron treatment, as noted above. - Continue to monitor and transfuse to keep hemoglobin greater than 7 Current Visit: Yes Status: Acute Code(s): D64.9 - ANEMIA, UNSPECIFIED SNOMED Code(s): 143036146 (3) Pancytopenia Narrative/Plan: Platelets and WBC are fairly stable. The patient stated that she was quite upset that her medical record had indicated that her pancytopenia was pote ntially due to previous alcohol effect. I advised her that this was a history that was noted in her office chart. She states that she quit drinking about 10- 11 years ago and prior to that would drink socially, usually about 5-6 drinks on the weekend. - At this time her other cytopenias a fairly stable and does not require any acute intervention. - I assured her that I will inform her primary oncologist Dr. Pathak about this information. She can discuss this with him at her next visit and her record modified as needed - Defer to Dr. Pathak Re: Any change in management or w/u placed on the above information Current Visit: No Status: Chronic Priority: Medium Code(s): D61.818 - OTHER PANCYTOPENIA SNOMED Code(s): 292619727
[2021-02-17] MEDS: SODIUM FERRIC GLUCONAT-SUCROSE 125 MG in SODIUM CHLORIDE 0.9% 100 ML IVPB SCH (09:54)
[2021-02-17] MEDS: diphenhydrAMINE 50 MG/ML 1 ML VIAL IVP SCH (09:54)
[2021-02-17 10:07] LABS: HCT 26.4 % (37.2-46.3); HGB 7.6 g/dL (12.0-15.0); MCH 26.5 pg (27.0-32.0); MCHC 28.8 g/dL (32.0-37.0); Platelet Count 163 X 10*3/uL (140-440); RBC 2.87 X 10*6/uL (4.10-5.20); RDW 30.5 % (11.5-14.5); WBC 4.31 X 10*3/uL (4.50-10.00)
[2021-02-17 10:08] LABS: Anisocytosis (M) 3+; Basophils # (M) 0 X 10*3/uL (0.00-0.10); Eosinophils # (M) 0.04 X 10*3/uL (0.04-0.35); Lymphocytes # (M) 1.55 X 10*3/uL (0.90-5.00); Macrocytosis (M) 2+; Microcytosis (M) 2+; Monocytes # (M) 0.13 X 10*3/uL (0.20-1.00); Neutrophils # (M) 2.59 X 10*3/uL (2.00-8.90); Neutrophils % (M) 60 %; Schistocytes 1+
--- NOTE | 2021-02-17 14:00 | P.PN ---
Subjective Progress Note Date: 02/17/21 Principal diagnosis: Acute on chronic hypoxic respiratory failure, multifactorial. This is a 60-year-old female, familiar to my service, I have seen this patient for the first time back in August of 2020, and she was seen in my office mostly for COPD symptoms. During her initial evaluation, patient was noted to be pale, tachycardic, and she was also noted to have severe COPD with FEV1 of 35% at best. Patient was advised to get full evaluation of her hematologic status, and I recommended at the time is CBC. Hemoglobin came back 5.5, and I recommended that the patient goes to the ER for blood transfusion. Patient was seen in the ER on 08/08/20, and she was admitted. Seen by oncology/hematology for her iron deficiency anemia she was also seen by gastroenterology. Patient underwent EGD and she underwent colonoscopy. She was found to have mild gastritis and 2 polyps removed from the rectum with hot snare polypectomy. Patient did not have a clear-cut explanation for her iron deficiency anemia, and she was advised to follow-up with hematology. She has been receiving iron infusions given to her by hematology, and she was even considered for possible bone marrow aspiration and biopsy. This has not been done. Patient saw me in the office recently for also shortness of breath, and I recommended a repeat CBC were and the hemoglobin came back 7.5. Information was sent to her primary care physician, and her primary care physician recommended that she goes to the ER. Patient was seen in the ER again this time, and her repeat hemoglobin was above 8.5. Hence she does not require blood transfusion. However considering the patient was short of breath, and considering her CT of the chest questioned patchy peripheral infiltrates, and groundglass changes in the right lower lobe, patient was admitted, and this consult was initiated. Clinically the patient does not have any symptoms to suggest pneumonia, she clearly has severe COPD, and considering the presentation I was asked to see the patient on consultation. Patient denies any cough, denies any fever, no chills, no hemoptysis, no chest pain. Patient was admitted, pro-calcitonin level is pending. She is now empirically on antibiotics. Again looking back at my notes from the office, patient has severe COPD FEV1 of 35%, she has low DLCO in the range of 29%, and she has hyperinflation CONSISTENT with severe emphysema. On 02/15/2021 patient seen in follow-up on the surgical floor. She is breathing comfortably, she is tolerating intubation, she is currently on room air, and she is alternating nasal cannula 2 L, and her pulse ox is 99%, no fever or chills overnight, breathing is nonlabored, she continues on empiric antibiotics, her pro-calcitonin level was low at 0.18, she is on oral prednisone. She is on nebulized bronchodilators, as been on IV iron transfusions, her repeat hemoglobin today came back at 6.6 and she will be transfused with 1 unit of packed red blood cells. Denies any chest pain, denies any hemoptysis, no swelling in lower extremities. White count today is 4.0 to on today's labs, hematology is following On 02/16/2021 patient seen in follow-up on medical surgical floor. She is currently on 2 L of oxygen pulse ox is 98%, breathing comfortably, she did desaturate to 78% on room air with ambulation and does qualify for home oxygen, but icterus seems to be very comfortable, no cognitive chest discomfort, no hemoptysis, yesterday she received 1 unit of blood for hemoglobin of 6.6, repeat hemoglobin last night came back at 9.2, and this morning it is 8.1, platelet count is 178, sodium is 135, potassium is 4.3, renal profile is within normal limits. He continues on azithromycin and Rocephin, oral prednisone was added in addition to nebulized bronchodilators. She has been tolerating ambulation in the room, denies any specific complaints other than shortness of breath with exertion, she has had no fever or chills. Followed by hematology and she has osullivan d some iron transfusions. No acute events overnight. Reevaluated today on 02/17/2021, patient remains on the medical surgical floor, she is on 2 L nasal cannula, relatively asymptomatic except for shortness of breath with any activity. Patient remains on 2 L nasal cannula, and she is on bronchodilators, antibiotics, follow-up chest x-ray showed minimal infiltrate in the right midlung and right lower lobe. The previous infiltrates noted on previous x-ray are not appreciated on the today's chest x-ray. Patient remains on iron infusions, received 1 unit of packed RBCs since admission, her hem oglobin at the time was 6.6. Patient was seen by hematology today, and recommending continuing iron infusions on outpatient basis. Today I'm going to recommend that the patient could be considered for discharge home, she will need to be on home oxygen at 2 L, she needs to remain on antibiotics, would recommend Levaquin for 5 more days. Patient will remain on bronchodilators, and she can be seen on outpatient basis for follow-up on her COPD and pneumonia. Objective - Vital Signs Vital signs: Vital Signs Temp 98.1 F 02/17/21 06:52 Pulse 88 02/17/21 11:53 Resp 16 02/17/21 06:52 BP 114/71 02/17/21 06:52 Pulse Ox 96 02/17/21 06:52 Intake & Output 02/16/21 02/17/21 02/17/21 18:59 06:59 18:59 Other: # Voids 3 1 - Exam Physical Exam: Revealed a 60-year-old female in no distress. On 2 L nasal cannula. Head: Atraumatic, normocephalic. HEENT:[Neck is supple.] [No neck masses.] [No thyromegaly.] [No JVD.] Chest: [Minimal crackles at the right base, wheezing on forced expiratory maneuver only. Cardiac Exam: [Normal S1 and S2, no S3 gallop, no murmur.] Abdomen: [Soft, nontender, no megaly, no rebound, no guarding, normal bowel sounds.] Extremities: [No clubbing, no edema, no cyanosis.] Neurological Exam: [No focal neurologic deficit.] Alert and oriented 3. Psychiatric: Normal mood affect and normal mental status examination. Skin: No rashes. - Labs CBC & Chem 7: 02/17/21 05:45 02/17/21 05:45 Labs: Abnormal Lab Results - Last 24 Hours (Table) 02/17/21 02/17/21 Range/Units 05:45 05:45 WBC 4.31 L (4.50-10.00) X 10*3/uL RBC 2.87 L (4.10-5.20) X 10*6/uL Hgb 7.6 L (12.0-15.0) g/dL Hct 26.4 L (37.2-46.3) % MCH 26.5 L (27.0-32.0) pg MCHC 28.8 L (32.0-37.0) g/dL RDW 30.5 H (11.5-14.5) % Absolute Nucleated RBC 0.83 H (0.00-0.00) X 10*3/uL Monocytes # (Manual) 0.13 L (0.20-1.00) X 10*3/uL NRBC/100 WBC Diff 19.3 H (0.0-0.0) /100 WBCS Sodium 135 L (137-145) mmol/L Creatinine 0.42 L (0.52-1.04) mg/dL Assessment and Plan Assessment: Impression: Acute on chronic hypoxic respiratory failure secondary to underlying severe COPD/emphysema, exacerbated by severe iron deficiency anemia. And community- acquired pneumonia. Abnormal CT angiogram of the chest with hilar adenopathy, possibly reactive, doubt malignancy. There is also a 9 mm nodule which could be seen and followed on outpatient basis. This could be addressed on an outpatient basis, and I claim to the patient that she will need a follow-up CT of the chest in the next 4 months. Hypovolemic hyponatremia. Chronic iron deficiency anemia, Previous nondiagnostic GI workup including EGD and colonoscopy. Recommendation: Continue present course of treatment including bronchodilators. Consider discharge planning on this patient on Levaquin 500 milligrams daily for 5 more days. Outpatient infusions in the hematology office. Patient is to see me in one to 2 weeks for follow-up. We will continue to follow. Made aware that her FEV1 was only 35%. Home oxygen is recommended and apparently she qualified for it. Time with Patient: Less than 30
--- NOTE | 2021-02-17 15:00 | P.PN ---
<Ryder Tobar - Last Filed: 02/17/21 14:36> Subjective Progress Note Date: 02/17/21 Hospital course: Patient is a 60-year-old female with a past medical history of advanced COPD and iron deficiency anemia. She presented to the hospital on 02/14/21 with a chief complaint of fatigue and worsening shortness of breath. Patient reports receiving her second Covid vaccination on February 25. Patient admitted under our services for COPD exacerbation along with bilateral patchy pneumonia. She is being treated with supplemental oxygen antibiotics, bronchodilators, and steroids. Pulmonology and hematology/oncology consulted and following.chest x- ray was completed showing patchy infiltrate of left mid lung and right infrahilar regions suggestive of pneumonia. CTA was completed and negative for PE showing mild to moderate emphysema with peribronchial or and peripheral vascular opacities with groundglass opacities in right lower lobe, also showing 9 mm nodule with enlarged hilar lymph nodes. Patient with neutropenia and anemia, hematology following transfusing iron and RBCs as needed. Patient did have reported findings of blast cells in her differential, hematology notified. Physical exam: Patient seen and fully evaluated at the bedside this morning. Patient reports having pain in her bones and reports shoulders and back very tender to touch. This pain is reproducible with palpation. repeat chest x-ray completed this m orning revealing COPD with continued patchy mid and lower lung interstitial infiltrates. Patient remains on azithromycin and Rocephin. Patient receiving IV iron this morning. Dr. Briceno notified of patient's new reports of bone pain. Patient denies having any chest pain or shortness of breath at rest. Patient reports continued shortness of breath with minimal exertion. Home oxygen evaluation being completed. Patient likely to be discharged home on oxygen. Vital signs reviewed and stable. General: Nontoxic, no distress and appears stated age. Derm: Skin warm and dry, normal coloration for ethnicity. Head: Atraumatic, normocephalic and symmetric. Eyes: EOMs intact, no lid lag, and anicteric sclera Mouth: no lip lesions, mucus membranes moist Cardiovascular: regular rate and rhythm with normal S1S2, no murmur, positive posterior tibial pulses bilaterally, and cap refill < 2 seconds. Lungs: Respirations even, regular, and unlabored on room air. Lungs CTA bilaterally, no rhonchi, no rales, no wheezing, and no accessory muscle usage. Abdominal: soft, nontender to palpation, no guarding, no appreciable organomegaly Ext: ROM intact. No gross muscle atrophy, no edema, no contractures Neuro: Speech clear, face symmetrical and CN II-XII grossly intact with no noted focal neuro deficits Psych: Alert and oriented to person, place, time, and situation. Appropriate and pleasant affect. Assessment and Plan of Care: Acute COPD exacerbation with hypoxia Bilateral patchy pneumonia -Pulmonology following, appreciate further recommendations -Continue supplemental oxygenation as needed to maintain SpO2 equal to or greater than 90%, wean once stable. -Home oxygen evaluation, plans to likely discharge patient home on oxygen. -Telemetry monitoring. -Duonebs scheduled every 4 hours -Incentive Spirometry, encourage use 10-15 times hourly while awake -Steroids: Prednisone -Antibiotics: Rocephin and azithromycin. Chronic anemia and neutropenia, unclear etiology Hematology following CBC with differential revealing blast cells Patient receiving IV iron We will continue to monitor with repeat a.m. labs. 9 mm pulmonary nodule right upper lobe with enlarged hilar lymph node -[facility] further imaging once treatment of pneumonia is completed. lactic acidosis secondary to infection without evidence of sepsis, resolved with IV hydration Hypovolemic hyponatremia, resolved. CODE STATUS: full code DVT prophylaxis: SCDs Discussed with: patient and RN Anticipated discharge date: likely tomorrow morning Anticipated discharge place: home A total of 45 minutes was spent on the care of this complex patient more than 50% of the time was spent in counseling and care coordination. Objective - Vital Signs Vital signs: Vital Signs Temp 98.1 F 02/17/21 06:52 Pulse 88 02/17/21 08:03 Resp 16 02/17/21 06:52 BP 114/71 02/17/21 06:52 Pulse Ox 96 02/17/21 06:52 Intake & Output 02/16/21 02/17/21 02/17/21 18:59 06:59 18:59 Other: # Voids 3 1 - Labs CBC & Chem 7: 02/17/21 05:45 02/17/21 05:45 Labs: Abnormal Lab Results - Last 24 Hours (Table) 02/17/21 Range/Units 05:45 Sodium 135 L (137-145) mmol/L Creatinine 0.42 L (0.52-1.04) mg/dL <Bing Aggarwal Last Filed: 02/17/21 20:44> Objective - Vital Signs Vital signs: Vital Signs Temp 97.9 F 02/17/21 14:00 Pulse 90 02/17/21 20:33 Resp 18 02/17/21 14:00 BP 119/67 02/17/21 14:00 Pulse Ox 93 L 02/17/21 16:16 Intake & Output 02/17/21 02/17/21 02/18/21 06:59 18:59 06:59 Other: # Voids 1 6 - Labs CBC & Chem 7: 02/17/21 05:45 02/17/21 05:45 Labs: Abnormal Lab Results - Last 24 Hours (Table) 02/17/21 02/17/21 Range/Units 05:45 05:45 WBC 4.31 L (4.50-10.00) X 10*3/uL RBC 2.87 L (4.10-5.20) X 10*6/uL Hgb 7.6 L (12.0-15.0) g/dL Hct 26.4 L (37.2-46.3) % MCH 26.5 L (27.0-32.0) pg MCHC 28.8 L (32.0-37.0) g/dL RDW 30.5 H (11.5-14.5) % Absolute Nucleated RBC 0.83 H (0.00-0.00) X 10*3/uL Monocytes # (Manual) 0.13 L (0.20-1.00) X 10*3/uL NRBC/100 WBC Diff 19.3 H (0.0-0.0) /100 WBCS Sodium 135 L (137-145) mmol/L Creatinine 0.42 L (0.52-1.04) mg/dL Assessment and Plan Assessment: Ryder Tobar NP rendered care for this patient independently, reviewed the findings and plan as documented in the note above. I did not physically speak with or examine the patient on this date. Discharge home in AM
[2021-02-18] MEDS: IPRATROPIUM-ALBUTEROL 3 ML NEB INHALATION SCH ×4 (00:15→12:06)
--- NOTE | 2021-02-18 08:06 | P.DS ---
<Ryder Tobar - Last Filed: 02/18/21 13:33> Providers Expected date of discharge: 02/18/21 Hospital Course: Discharge Diagnosis: Acute COPD exacerbation with hypoxia Bilateral patchy pneumonia Acute on chronic hypoxic respiratory failure Chronic anemia and neutropenia, unclear etiology Abnormal lab findings revealing 2% blast cells, recommend follow-up with hematology/oncology as discussed 9 mm pulmonary nodule right upper lobe with enlarged hilar lymph node, patient instructed to follow-up outpatient with pulmonology for repeat imaging Lactic acidosis secondary to infection without evidence of sepsis, resolved with IV hydration Hypovolemic hyponatremia, resolved. Hospital Course: Patient is a 60-year-old female with a past medical history of advanced COPD and iron deficiency anemia. She presented to the hospital on 02/14/21 with a chief complaint of fatigue and worsening shortness of breath. Patient reports receiving her second Covid vaccination on February 25. Patient admitted under our services for COPD exacerbation along with bilateral patchy pneumonia. She is being treated with supplemental oxygen antibiotics, bronchodilators, and steroids. Pulmonology and hematology/oncology consulted and following.chest x- ray was completed showing patchy infiltrate of left mid lung and right infrahilar regions suggestive of pneumonia. CTA was completed and negative for PE showing mild to moderate emphysema with peribronchial or and peripheral vascular opacities with groundglass opacities in right lower lobe, also showing 9 mm nodule with enlarged hilar lymph nodes. Patient with neutropenia and anemia, hematology following transfusing iron and RBCs as needed. Patient did have reported findings of abnormal blast cells in her CBC differential, hematology notified. After 5 days of antibiotics, bronchodilators, and steroids patient has successfully been weaned back off of oxygen. Patient's resting oxygen saturation is 94% on room air and with ambulation and she is 90% on room air. Patient is medically clear for discharge at this time. Patient being discharged home on Levaquin 750 mg daily for 5 days along with Medrol Dosepak. Patient instructed to follow-up with electric shovel operator in 1 week as scheduled, building maintenance engineer in 1 week, and PCP tomorrow morning as scheduled. Patient informed she will need to follow up with hematology regarding anemia, leukopenia, and abnormal blast cells found in her blood test. She will also have to follow up with pulmonology for repeat imaging to further evaluate the 9 mm nodule noted on her CT. Patient was strongly encouraged to avoid smoking and smoke exposure as this can cause further deterioration of her health in lead to consequences up to and including . Patient stable for discharge at this time. Physical exam: Patient sitting up at bedside this morning. Patient reports feeling better today. Patient completed home oxygen evaluation this morning after successfully been weaned off of oxygen. Patient 94% on room air and 90% with ambulation on room air. Patient is medically stable for discharge at this time, patient educated on discharge instructions and all questions answered. Patient denies having any further questions, complaints, or needs at this time including chest pain, palpitations, headache, lightheadedness, dizziness, shortness of breath at rest, or experiencing any numbness/tingling/weakness in her extremities. Patient ambulating in room without any difficulties. Vital signs reviewed and stable. General: Nontoxic, no distress and appears stated age. Derm: Skin warm and dry, normal coloration for ethnicity. Head: Atraumatic, normocephalic and symmetric. Eyes: EOMs intact, no lid lag, and anicteric sclera Mouth: no lip lesions, mucus membranes moist Cardiovascular: regular rate and rhythm with normal S1S2, no murmur, positive posterior tibial pulses bilaterally, and cap refill < 2 seconds. Lungs: Respirations even, regular, and unlabored on room air. Lungs slightly diminished, no rhonchi, no rales, no wheezing, and no accessory muscle usage. Abdominal: soft, nontender to palpation, no guarding, no appreciable organomegaly Ext: ROM intact. No gross muscle atrophy, no edema, no contractures Neuro: Speech clear, face symmetrical and CN II-XII grossly intact with no noted focal neuro deficits Psych: Alert and oriented to person, place, time, and situation. Appropriate and pleasant affect. A total of 45 minutes of time were spent preparing this complex discharge summary. Patient Condition at Discharge: Stable Plan - Discharge Summary Discharge Rx Participant: No New Discharge Prescriptions: New Levofloxacin [Levaquin] 750 mg PO DAILY 5 Days #5 tab methylPREDNISolone Dose Pack [Medrol Dose Pack] 4 mg PO DIRECTED #21 tab Continue Albuterol Inhaler [Ventolin Hfa Inhaler] 2 puff INHALATION RT-Q4H PRN PRN Reason: Shortness Of Breath Ferrous Sulfate [Slow Fe] 142 mg PO BID Tiotropium [place] [Spiriva] 1 cap INHALATION RT-DAILY Ipratropium-Albuterol Nebulize [Duoneb 0.5 mg-3 mg/3 ml Soln] 3 ml INHALATION RT-QID #1 pack Discharge Medication List Albuterol Inhaler [Ventolin Hfa Inhaler] 2 puff INHALATION RT-Q4H PRN 08/08/20 [History] Ferrous Sulfate [Slow Fe] 142 mg PO BID 08/19/20 [History] Tiotropium [place] [Spiriva] 1 cap INHALATION RT-DAILY 01/22/21 [History] Ipratropium-Albuterol Nebulize [Duoneb 0.5 mg-3 mg/3 ml Soln] 3 ml INHALATION RT-QID #1 pack 02/18/21 [Rx] Levofloxacin [Levaquin] 750 mg PO DAILY 5 Days #5 tab 02/18/21 [Rx] methylPREDNISolone Dose Pack [Medrol Dose Pack] 4 mg PO DIRECTED #21 tab 02/18/21 [Rx] Follow up Appointment(s)/Referral(s): Kizzy Ayala MD [STAFF PHYSICIAN] - 02/25/21 9:00 am Cathie Alcaraz ANPBC [Nurse Practitioner] - 02/26/21 9:15 am Saroj Vides MD [Primary Care Provider] - 02/19/21 9:00 am Toby Pathak MD [STAFF PHYSICIAN] - 1 Week Ambulatory/Diagnostic Orders: Complete Blood Count w/diff [LAB.AMB] Time Frame: 3 Days, Location: None Selected Patient Instructions/Handouts: How to Use an Incentive Spirometer (DC), Heart Healthy Diet (DC), Iron Deficiency Anemia (DC), COPD (Chronic Obstructive Pulmonary Disease) (DC), Hypoxia (GEN), Pneumonia (DC), Pancytopenia (DC) Activity/Diet/Wound Care/Special Instructions: Activity: As tolerated, take breaks as needed. Diet: Heart Healthy diet Special Instructions: Avoid smoking or being around individuals smoking, as smoke exposure and cigarette smoking can cause further deterioration of your health and lead to consequences up to and including . You will need to follow up outpatient with your building maintenance engineer, Dr. Pathak regarding your anemia, leukopenia and blast cells found in your blood test. You will need to follow up with Dr. Ayala-Grocery Clerk Marking for your COPD as well as for repeat imaging to further evaluate nodule/lymph node found on imaging. It is also important to schedule an appointment with Dr. Vides in 1-2 days for a post hospitalization follow up visit. Thank you for allowing us to participate in your care, it was truly a pleasure having you for our patient. Discharge Disposition: HOME SELF-CARE <Bing Aggarwal - Last Filed: 02/18/21 21:25> Providers Date of admission: 02/13/21 17:37 Attending physician: Bing Aggarwal DO Consults: 02/13/21 17:36 Consult Physician Urgent Consulting Provider: Kizzy Ayala Consult Reason/Comments: acute hypoxic resp failure, copd exacerbation Do you want consulting provider notified?: Yes Consult Physician Urgent Consulting Provider: Celio Briceno Consult Reason/Comments: worsening anemia Do you want consulting provider notified?: Yes Primary care physician: Saroj Vides MD Hospital Course: Ryder Tobar NP rendered care for this patient independently, reviewed the findings and plan as documented in the note above. I did not physically speak with or examine the patient on this date.
[2021-02-18] MEDS: predniSONE 20 MG TAB PO SCH (08:55)
[2021-02-18] MEDS: PANTOPRAZOLE 40 MG TABLET PO SCH (08:55)
[2021-02-18] MEDS: diphenhydrAMINE 50 MG/ML 1 ML VIAL IVP SCH (08:56)
[2021-02-18] MEDS: FERROUS SULFATE 325 MG TAB PO SCH (08:56)
[2021-02-18 10:02] VITALS: BP 131/76; RESP 16; TEMP 98.2
[2021-02-18] MEDS: SODIUM FERRIC GLUCONAT-SUCROSE 125 MG in SODIUM CHLORIDE 0.9% 100 ML IVPB SCH (10:23)
[2021-02-18 12:19] VITALS: PULSE 84
--- NOTE | 2021-02-18 13:38 | P.PN ---
Subjective Progress Note Date: 02/18/21 Principal diagnosis: Acute on chronic hypoxic respiratory failure, multifactorial. This is a 60-year-old female, familiar to my service, I have seen this patient for the first time back in August of 2020, and she was seen in my office mostly for COPD symptoms. During her initial evaluation, patient was noted to be pale, tachycardic, and she was also noted to have severe COPD with FEV1 of 35% at best. Patient was advised to get full evaluation of her hematologic status, and I recommended at the time is CBC. Hemoglobin came back 5.5, and I recommended that the patient goes to the ER for blood transfusion. Patient was seen in the ER on 08/08/20, and she was admitted. Seen by oncology/hematology for her iron deficiency anemia she was also seen by gastroenterology. Patient underwent EGD and she underwent colonoscopy. She was found to have mild gastritis and 2 polyps removed from the rectum with hot snare polypectomy. Patient did not have a clear-cut explanation for her iron deficiency anemia, and she was advised to follow-up with hematology. She has been receiving iron infusions given to her by hematology, and she was even considered for possible bone marrow aspiration and biopsy. This has not been done. Patient saw me in the office recently for also shortness of breath, and I recommended a repeat CBC were and the hemoglobin came back 7.5. Information was sent to her primary care physician, and her primary care physician recommended that she goes to the ER. Patient was seen in the ER again this time, and her repeat hemoglobin was above 8.5. Hence she does not require blood transfusion. However considering the patient was short of breath, and considering her CT of the chest questioned patchy peripheral infiltrates, and groundglass changes in the right lower lobe, patient was admitted, and this consult was initiated. Clinically the patient does not have any symptoms to suggest pneumonia, she clearly has severe COPD, and considering the presentation I was asked to see the patient on consultation. Patient denies any cough, denies any fever, no chills, no hemoptysis, no chest pain. Patient was admitted, pro-calcitonin level is pending. She is now empirically on antibiotics. Again looking back at my notes from the office, patient has severe COPD FEV1 of 35%, she has low DLCO in the range of 29%, and she has hyperinflation CONSISTENT with severe emphysema. On 02/15/2021 patient seen in follow-up on the surgical floor. She is breathing comfortably, she is tolerating intubation, she is currently on room air, and she is alternating nasal cannula 2 L, and her pulse ox is 99%, no fever or chills overnight, breathing is nonlabored, she continues on empiric antibiotics, her pro-calcitonin level was low at 0.18, she is on oral prednisone. She is on nebulized bronchodilators, as been on IV iron transfusions, her repeat hemoglobin today came back at 6.6 and she will be transfused with 1 unit of packed red blood cells. Denies any chest pain, denies any hemoptysis, no swelling in lower extremities. White count today is 4.0 to on today's labs, hematology is following On 02/16/2021 patient seen in follow-up on medical surgical floor. She is currently on 2 L of oxygen pulse ox is 98%, breathing comfortably, she did desaturate to 78% on room air with ambulation and does qualify for home oxygen, but icterus seems to be very comfortable, no cognitive chest discomfort, no hemoptysis, yesterday she received 1 unit of blood for hemoglobin of 6.6, repeat hemoglobin last night came back at 9.2, and this morning it is 8.1, platelet count is 178, sodium is 135, potassium is 4.3, renal profile is within normal limits. He continues on azithromycin and Rocephin, oral prednisone was added in addition to nebulized bronchodilators. She has been tolerating ambulation in the room, denies any specific complaints other than shortness of breath with exertion, she has had no fever or chills. Followed by hematology and she has osullivan d some iron transfusions. No acute events overnight. Reevaluated today on 02/17/2021, patient remains on the medical surgical floor, she is on 2 L nasal cannula, relatively asymptomatic except for shortness of breath with any activity. Patient remains on 2 L nasal cannula, and she is on bronchodilators, antibiotics, follow-up chest x-ray showed minimal infiltrate in the right midlung and right lower lobe. The previous infiltrates noted on previous x-ray are not appreciated on the today's chest x-ray. Patient remains on iron infusions, received 1 unit of packed RBCs since admission, her hem oglobin at the time was 6.6. Patient was seen by hematology today, and recommending continuing iron infusions on outpatient basis. Today I'm going to recommend that the patient could be considered for discharge home, she will need to be on home oxygen at 2 L, she needs to remain on antibiotics, would recommend Levaquin for 5 more days. Patient will remain on bronchodilators, and she can be seen on outpatient basis for follow-up on her COPD and pneumonia. Reevaluated today on 02/18/2021, patient is doing great, she is off oxygen, patient had a 6 minute walk, and she did not qualify for home oxygen. Overall the patient is doing great, and she is being considered for discharge home today. She is still receiving iron infusion today. Objective - Vital Signs Vital signs: Vital Signs Temp 98.2 F 02/18/21 07:00 Pulse 84 02/18/21 12:18 Resp 16 02/18/21 07:00 BP 131/76 02/18/21 07:00 Pulse Ox 90 L 02/18/21 09:53 Intake & Output 02/17/21 02/18/21 02/18/21 18:59 06:59 18:59 Intake Total 240 Balance 240 Intake: Oral 240 Other: # Voids 6 1 - Exam Physical Exam: Revealed a 60-year-old female in no distress. On room air. Head: Atraumatic, normocephalic. HEENT:[Neck is supple.] [No neck masses.] [No thyromegaly.] [No JVD.] Chest: Diminished breath sound bilaterally no crackles or rhonchi or wheezes Cardiac Exam: [Normal S1 and S2, no S3 gallop, no murmur.] Abdomen: [Soft, nontender, no megaly, no rebound, no guarding, normal bowel sounds.] Extremities: [No clubbing, no edema, no cyanosis.] Neurological Exam: [No focal neurologic deficit.] Alert and oriented 3. Psychiatric: Normal mood affect and normal mental status examination. Skin: No rashes. - Labs CBC & Chem 7: 02/17/21 05:45 02/17/21 05:45 Assessment and Plan Assessment: Impression: Acute on chronic hypoxic respiratory failure secondary to underlying severe COPD/emphysema, exacerbated by severe iron deficiency anemia. And community- acquired pneumonia. Abnormal CT angiogram of the chest with hilar adenopathy, possibly reactive, doubt malignancy. There is also a 9 mm nodule which could be seen and followed on outpatient basis. This could be addressed on an outpatient basis, and I claim to the patient that she will need a follow-up CT of the chest in the next 4 months. Hypovolemic hyponatremia. Chronic iron deficiency anemia, Previous nondiagnostic GI workup including EGD and colonoscopy. Recommendation: Agree with discharge planning today, follow up on outpatient basis Patient to resume her bronchodilators, Continue Levaquin. No need for home oxygen since the patient did not qualify. continue to follow up on outpatient basis with hematology and continue iron infusions. cleared from our perspective for discharge home today. Time with Patient: Less than 30
== END 2021-02-18 13:16 | disposition home or self-care (01) | DRG 190 ==
LOC: EC 12:29 → 4SSUR 17:37
PROVIDERS: ADMIT Internal Medicine; ATTEND Internal Medicine
PROC: 30233N1 Transfusion of Nonautologous Red Blood Cells into Peripheral Vein, Percutaneous Approach (ICD-10-PCS; principal; 2021-02-15)
DX: J43.9 Emphysema, unspecified (principal); J96.21 Acute and chronic respiratory failure with hypoxia; J18.9 Pneumonia, unspecified organism; D61.818 Other pancytopenia; E87.1 Hypo-osmolality and hyponatremia; E87.2 Acidosis; D50.9 Iron deficiency anemia, unspecified; Z20.822 Contact with and (suspected) exposure to COVID-19; E86.1 Hypovolemia; F32.9 Major depressive disorder, single episode, unspecified; K29.70 Gastritis, unspecified, without bleeding; Z87.891 Personal history of nicotine dependence; Z79.899 Other long term (current) drug therapy; Z88.8 Allergy status to other drugs, medicaments and biological substances; Z86.010 Personal history of colon polyps; Z87.19 Personal history of other diseases of the digestive system
CPT/HCPCS: 36415; 71045; 71046; 71275; 80048; 80053; 81003; 82728; 83540; 83550; 83605; 83735; 83880; 84145; 84484; 85025; 85379; 85610; 85730; 86850; 86900; 86901; 86920; 87635; 93005; 94640; 94760; 99285

== ENCOUNTER 2021-04-24 06:28 | Day surgery (SDC) | payer BC ==
[2021-04-22 10:53] VITALS: BMI 22.8
[2021-04-24 07:03] VITALS: RESP 18; TEMP 98.7
[2021-04-24] MEDS ORDERED: PROPOFOL 10 MG/ML 20 ML VIAL IV ONE (07:13)
[2021-04-24 07:47] VITALS: BP 105/69; PULSE 92
[2021-04-24 09:40] LABS: Anisocytosis Marked; HCT 36.2 % (34.0-46.0); HGB 11.8 gm/dL (11.4-16.0); Hypochromasia Slight; MCH 37.5 pg (25.0-35.0); MCHC 32.6 g/dL (31.0-37.0); MCV 114.8 fL (80.0-100.0); Macrocytosis Marked; Platelet Count 134 k/uL (150-450); Poikilocytosis Slight; RBC 3.15 m/uL (3.80-5.40); Reticulocyte % 9.8 % (0.5-2.0)
--- NOTE | 2021-04-24 09:43 | PCN ---
PROCEDURE NOTE DATE OF PROCEDURE: 04/24/2021. PREOP DIAGNOSIS: Unexplained anemia. POSTOP DIAGNOSIS: Unexplained anemia. ANESTHESIA: Local with IV systemic sedation. DETAILS: Utilizing sterile technique, the skin overlying the right iliac crest was prepared with Betadine and alcohol. After adequate sterile draping, local anesthesia with 1% lidocaine and IV systemic sedation size 11 4 inch Jamshidi needle was utilized to access the periosteum with ease. A total of 15 mL of aspirate and 3 cm bone core biopsies were obtained. The patient tolerated the procedure very well. There was no immediate procedure related complication. TOTAL BLOOD LOSS: Less than 1 mL. Results pending. MMODL / IJN: [id number] /
[2021-04-24 09:52] LABS: RDW 25.6 % (11.5-15.5)
[2021-04-24 09:53] LABS: WBC 1.8 k/uL (3.8-10.6)
[2021-04-24 11:34] LABS: Eosinophils # (M) 0.07 k/uL (0-0.7); Lymphocytes # (M) 1.13 k/uL (1.0-4.8); Monocytes # (M) 0.09 k/uL (0-1.0); Neutrophils % (M) 28 %; Nucleated Red Blood Cells 0 /100 WBC (0-0); Total Cells Counted 100
[2021-04-24 11:35] LABS: Polychromasia Present; RBC Fragments Present
[2021-04-24 11:37] LABS: Spherocytes Present
== END 2021-04-24 08:11 | disposition home or self-care (01) ==
LOC: OR 06:28
PROVIDERS: ATTEND Internal Medicine Hematology & Oncology
DX: D64.9 Anemia, unspecified (principal)
CPT/HCPCS: 38222; 85025; 85045; J2704

== ENCOUNTER 2021-08-03 13:01 | Emergency (ER) | payer BC, OTHER, SELFPAY ==
[2021-08-03 13:09] VITALS: BP 124/68; TEMP 97.9
[2021-08-03] MEDS ORDERED: LIDOCAINE 1% INJ 10MG/ML (20 ML MDV) SQ ONE (13:22)
[2021-08-03] MEDS ORDERED: ACET/COD 300 MG/30 MG STARTER PACK 6 TAB BTL PO STA (14:13)
--- NOTE | 2021-08-03 14:17 | ED ---
Skin/Abscess/FB HPI - General Chief complaint: Skin/Abscess/Foreign Body Stated complaint: abscess on chest Time Seen by Provider: 08/03/21 13:11 Source: patient, EMS, RN notes reviewed Mode of arrival: EMS Limitations: no limitations - History of Present Illness Initial comments: 61-year-old female presents emergency Department with chief complaint of abscess on her chest. Patient was receiving iron infusion which he told patient said that she had an abscess. Patient was sent down here for evaluation. She does have a history of cyst. Patient denies any fevers or chills states it is uncomfortable initially started last week with a small pimple in which she tried to pop states it might worse and she did have some mall mono drainage out. - Related Data Home Medications Medication Instructions Recorded Confirmed Albuterol Inhaler [Ventolin Hfa 2 puff INHALATION RT-Q4H PRN 08/08/20 08/03/21 Inhaler] Ferrous Sulfate [Slow Fe] 142 mg PO HS 08/19/20 08/03/21 Tiotropium [place] [Spiriva] 1 cap INHALATION RT-DAILY 01/22/21 08/03/21 Previous Rx's Medication Instructions Recorded Ipratropium-Albuterol Nebulize 3 ml INHALATION RT-QID #1 pack 02/18/21 [Duoneb 0.5 mg-3 mg/3 ml Soln] Cephalexin [Keflex] 500 mg PO Q6HR #28 cap 08/03/21 Sulfamethox-Tmp 800-160Mg [Bactrim 1 each PO Q12HR #20 tab 08/03/21 Ds] Allergies Allergy/AdvReac Type Severity Reaction Status Date / Time ferumoxytol Allergy Severe Rash/Hives Verified 08/03/21 13:06 Review of Systems ROS Statement: Those systems with pertinent positive or pertinent negative responses have been documented in the HPI. ROS Other: All systems not noted in ROS Statement are negative. Past Medical History Past Medical History: Blood Disorder, COPD Additional Past Medical History / Comment(s): Pancytopenia, iron deficiency anemia, COPD History of Any Multi-Drug Resistant Organisms: None Reported Past Surgical History: No Surgical Hx Reported Additional Past Surgical History / Comment(s): tooth extraction, COLONOSCOPY Past Anesthesia/Blood Transfusion Reactions: No Reported Reaction Additional Past Anesthesia/Blood Transfusion Reaction / Comment(s): unknown family hx-pt is adopted Past Psychological History: Depression Smoking Status: Former smoker Past Alcohol Use History: None Reported Past Drug Use History: None Reported - Past Family History Father History Unknown: Yes Additional Family Medical History / Comment(s): unknown, adopted at Mother History Unknown: Yes Additional Family Medical History / Comment(s): unknown, adopted at General Exam Limitations: no limitations General appearance: alert, in no apparent distress Head exam: Present: atraumatic, normocephalic, normal inspection Respiratory exam: Present: normal lung sounds bilaterally. Absent: respiratory distress, wheezes, rales, rhonchi, stridor Cardiovascular Exam: Present: regular rate, normal rhythm, normal heart sounds. Absent: systolic murmur, diastolic murmur, rubs, gallop, clicks Skin exam: Present: warm, dry, intact, normal color, other (Chest, in between breasts there is a 2 cm abscess with fluctuance, erythema). Absent: rash Course Vital Signs 08/03/21 13:06 Temperature 97.9 F Pulse Rate 99 Respiratory 18 Rate Blood Pressure 124/68 O2 Sat by Pulse 94 L Oximetry Procedures - Incision & Drainage Consent Obtained: written consent Site: chest Size (cm): 2 Anesthetic Used: lidocaine 1%, without epi Amount (mLs): 3 I&D Cleaning Method: Alcohol Wipe Sterile Field Used?: Yes Scalpel Used: #11 Needle Aspiration Performed?: No Irrigation Performed?: No I&D Drainage Obtained: Pus, Blood Culture Obtained?: Yes Patient Tolerated Procedure: well, no complications Medical Decision Making - Medical Decision Making 61-year-old presented for abscess. Patient did sign consent. Patient had I&D of abscess patient will be discharged on oral antibiotics with close return parameters. Disposition Clinical Impression: Chest wall abscess Disposition: HOME SELF-CARE Condition: Stable Instructions (If sedation given, give patient instructions): Abscess Incision and Drainage (ED) Additional Instructions: Please return to the Emergency Department if symptoms worsen or any other concerns. Prescriptions: Sulfamethox-Tmp 800-160Mg [Bactrim Ds] 1 each PO Q12HR #20 tab Cephalexin [Keflex] 500 mg PO Q6HR #28 cap Is patient prescribed a controlled substance at d/c from ED?: No Referrals: Saroj Vides MD [Primary Care Provider] - 1-2 days Time of Disposition: 14:16
[2021-08-03 14:49] VITALS: PULSE 82; RESP 16
== END 2021-08-03 14:49 | disposition home or self-care (01) ==
LOC: EC 13:01
DX: L02.213 Cutaneous abscess of chest wall (principal); J44.9 Chronic obstructive pulmonary disease, unspecified; F32.A Depression, unspecified; Z87.891 Personal history of nicotine dependence; Z79.51 Long term (current) use of inhaled steroids; Z79.899 Other long term (current) drug therapy
CPT/HCPCS: 87070; 87205; 10060; 99283; J2001

== ENCOUNTER → 2021-10-08 | Outpatient (CLI) | payer OTHER ==
--- NOTE | 2021-10-08 15:26 | US ---
EXAMINATION TYPE: US venous doppler duplex UE LT DATE OF EXAM: 10/08/2021 COMPARISON: NONE CLINICAL HISTORY: M79.602 PAIN LT UPPER EXT. left arm pain for 2 months SIDE PERFORMED: left Left Arm: no evidence of DVT as visualized Grayscale, color doppler, spectral doppler imaging performed of the deep and superficial veins of the left upper extremity. There is normal flow, compressibility and vascular waveforms. IMPRESSION: No ultrasound evidence for acute deep or superficial venous thrombosis in the left upper extremity.
== END | disposition home or self-care (01) ==
LOC: RADUSWWP 14:24
PROVIDERS: ATTEND Internal Medicine
DX: M79.602 Pain in left arm (principal)

== ENCOUNTER 2021-12-02 15:43 | Inpatient (IN) | payer OTHER ==
--- NOTE | 2021-12-02 16:52 | ED ---
General Adult HPI - General Chief complaint: Arrhythmia/Palpitations Stated complaint: Sent by PCP/Racing heart beat Time Seen by Provider: 12/02/21 15:52 Source: patient, RN notes reviewed, old records reviewed Mode of arrival: wheelchair Limitations: no limitations - History of Present Illness Initial comments: 61-year-old female presenting for evaluation of tachycardia and hypoxia. Patient has a history of anemia and follows with hematology. Patient has a history of myelodysplastic syndrome. She had required iron transfusions. She was seen by her primary care physician for evaluation of dyspnea. Patient had been sent to the emergency department after being found to be tachycardic and hypoxic in the office. She does have a history of COPD but is not currently oxygen dependent. She denies rectal bleeding. Denies abdominal pain. - Related Data Home Medications Medication Instructions Recorded Confirmed Albuterol Inhaler [Ventolin Hfa 2 puff INHALATION RT-Q6H PRN 08/08/20 12/02/21 Inhaler] Tiotropium [place] [Spiriva] 1 cap INHALATION RT-DAILY 01/22/21 12/02/21 Ipratropium-Albuterol Nebulize 3 ml INHALATION RT-QID PRN 12/02/21 12/02/21 [Duoneb 0.5 mg-3 mg/3 ml Soln] Allergies Allergy/AdvReac Type Severity Reaction Status Date / Time ferumoxytol Allergy Severe Rash/Hives Verified 12/02/21 17:43 Review of Systems ROS Statement: Those systems with pertinent positive or pertinent negative responses have been documented in the HPI. ROS Other: All systems not noted in ROS Statement are negative. Past Medical History Past Medical History: Blood Disorder, COPD Additional Past Medical History / Comment(s): Pancytopenia, iron deficiency anemia, COPD, myelodysplastic syndrome History of Any Multi-Drug Resistant Organisms: None Reported Past Surgical History: No Surgical Hx Reported Additional Past Surgical History / Comment(s): tooth extraction, COLONOSCOPY Past Anesthesia/Blood Transfusion Reactions: No Reported Reaction Additional Past Anesthesia/Blood Transfusion Reaction / Comment(s): unknown family hx-pt is adopted Past Psychological History: Depression Smoking Status: Former smoker Past Alcohol Use History: None Reported Past Drug Use History: None Reported - Past Family History Father History Unknown: Yes Additional Family Medical History / Comment(s): unknown, adopted at Mother History Unknown: Yes Additional Family Medical History / Comment(s): unknown, adopted at General Exam Limitations: no limitations General appearance: alert, in no apparent distress Head exam: Present: atraumatic, normocephalic Eye exam: Present: normal appearance, PERRL ENT exam: Present: normal exam Neck exam: Present: normal inspection. Absent: tenderness, meningismus Respiratory exam: Present: wheezes, decreased breath sounds. Absent: respira tory distress Cardiovascular Exam: Present: normal rhythm, tachycardia GI/Abdominal exam: Present: soft. Absent: distended, tenderness, guarding Extremities exam: Present: normal inspection, normal capillary refill. Absent: pedal edema, calf tenderness Neurological exam: Present: alert, oriented X3, CN II-XII intact. Absent: motor sensory deficit Psychiatric exam: Present: normal affect, normal mood Skin exam: Present: warm, dry, intact. Absent: cyanosis, diaphoretic Course Vital Signs 12/02/21 12/02/21 12/02/21 15:47 16:45 17:16 Temperature 98.9 F Pulse Rate 124 H 122 H Pulse Rate [ 111 H Right Radial] Respiratory 20 30 H Rate Blood Pressure 115/67 99/75 O2 Sat by Pulse 92 L 95 Oximetry 12/02/21 12/02/21 12/02/21 17:30 18:00 18:30 Temperature Pulse Rate 109 H 107 H 106 H Pulse Rate [ Right Radial] Respiratory 22 22 22 Rate Blood Pressure 116/77 113/71 115/61 O2 Sat by Pulse 96 96 96 Oximetry 12/02/21 12/02/21 12/02/21 19:00 19:33 19:59 Temperature Pulse Rate 105 H 103 H 100 Pulse Rate [ Right Radial] Respiratory 22 Rate Blood Pressure 116/81 O2 Sat by Pulse 95 Oximetry - Reevaluation(s) Reevaluation #1: 12/02/21 20:07 Case discussed with [facility] physician group 12/02/21 20:08 EKG Findings - EKG Comments: EKG Findings:: EKG: Sinus tachycardia, rate of 122, TN interval 136, QRS duration 85, QTC 378, no ST segment elevation. Medical Decision Making - Medical Decision Making 61-year-old female presented from the primary care office with dizziness, tachycardia, and hypoxia. Patient has history of mild dysplastic syndrome. She also has history of COPD. On exam she is tachycardic and hypoxic requiring supplemental oxygen. She has moderate dyspnea. She has decreased air entry bilaterally. Workup is initiated including laboratory testing, CBC, CMP, cardiac enzymes and d-dimer. Her hemoglobin is improved from prior at 12.8. She has a normal white blood cell count 4.1 which has elevated d-dimer at 2.26. Normal electrolytes, negative troponin. She does test negative for both coronavirus and influenza. Chest x-ray shows patchy bilateral infiltrate. CT angiography is performed given the elevated d-dimer this is negative for pulmonary embolism but does show multifocal densities either infectious versus metastatic. She will be admitted for further treatment and evaluation. IV an tibiotics are started in the emergency department to cover infectious process. Hematology will be placed on consult. - Lab Data Result diagrams: 12/02/21 16:44 12/02/21 17:07 Lab Results 12/02/21 12/02/21 12/02/21 Range/Units 16:44 16:44 17:07 WBC 4.1 (3.8-10.6) k/uL RBC 3.54 L (3.80-5.40) m/uL Hgb 12.8 (11.4-16.0) gm/dL Hct 38.5 (34.0-46.0) % MCV 108.8 H (80.0-100.0) fL MCH 36.1 H (25.0-35.0) pg MCHC 33.2 (31.0-37.0) g/dL RDW 19.6 H (11.5-15.5) % Plt Count 150 (150-450) k/uL MPV 14.7 Neutrophils % (Manual) 81 % Lymphocytes % (Manual) 15 % Monocytes % (Manual) 3 % Eosinophils % (Manual) 1 % Neutrophils # (Manual) 3.32 (1.3-7.7) k/uL Lymphocytes # (Manual) 0.62 L (1.0-4.8) k/uL Monocytes # (Manual) 0.12 (0-1.0) k/uL Eosinophils # (Manual) 0.04 (0-0.7) k/uL Nucleated RBCs 0 (0-0) /100 WBC Manual Slide Review Performed Hypochromasia Slight Poikilocytosis Slight Anisocytosis Slight Macrocytosis Marked A PT 11.0 (9.0-12.0) sec INR 1.0 (<1.2) APTT 20.1 L (22.0-30.0) sec D-Dimer 2.26 H (<0.60) mg/L FEU Sodium (137-145) mmol/L Potassium (3.5-5.1) mmol/L Chloride (98-107) mmol/L Carbon Dioxide (22-30) mmol/L Anion Gap mmol/L BUN (7-17) mg/dL Creatinine (0.52-1.04) mg/dL Est GFR (CKD-EPI)AfAm (>60 ml/min/1.73 sqM) Est GFR (CKD-EPI)NonAf (>60 ml/min/1.73 sqM) Glucose (74-99) mg/dL Calcium (8.4-10.2) mg/dL Magnesium (1.6-2.3) mg/dL Total Bilirubin (0.2-1.3) mg/dL AST (14-36) U/L ALT (4-34) U/L Alkaline Phosphatase (38-126) U/L Troponin I <0.012 (0.000-0.034) ng/mL Total Protein (6.3-8.2) g/dL Albumin (3.5-5.0) g/dL Coronavirus (PCR) (Not Detectd) Influenza Type A RNA (Not Detectd) Influenza Type B (PCR) (Not Detectd) 12/02/21 12/02/21 12/02/21 Range/Units 17:07 18:33 18:33 WBC (3.8-10.6) k/uL RBC (3.80-5.40) m/uL Hgb (11.4-16.0) gm/dL Hct (34.0-46.0) % MCV (80.0-100.0) fL MCH (25.0-35.0) pg MCHC (31.0-37.0) g/dL RDW (11.5-15.5) % Plt Count (150-450) k/uL MPV Neutrophils % (Manual) % Lymphocytes % (Manual) % Monocytes % (Manual) % Eosinophils % (Manual) % Neutrophils # (Manual) (1.3-7.7) k/uL Lymphocytes # (Manual) (1.0-4.8) k/uL Monocytes # (Manual) (0-1.0) k/uL Eosinophils # (Manual) (0-0.7) k/uL Nucleated RBCs (0-0) /100 WBC Manual Slide Review Hypochromasia Poikilocytosis Anisocytosis Macrocytosis PT (9.0-12.0) sec INR (<1.2) APTT (22.0-30.0) sec D-Dimer (<0.60) mg/L FEU Sodium 132 L (137-145) mmol/L Potassium 4.5 (3.5-5.1) mmol/L Chloride 101 (98-107) mmol/L Carbon Dioxide 23 (22-30) mmol/L Anion Gap 8 mmol/L BUN 8 (7-17) mg/dL Creatinine 0.44 L (0.52-1.04) mg/dL Est GFR (CKD-EPI)AfAm >90 (>60 ml/min/1.73 sqM) Est GFR (CKD-EPI)NonAf >90 (>60 ml/min/1.73 sqM) Glucose 110 H (74-99) mg/dL Calcium 8.7 (8.4-10.2) mg/dL Magnesium 2.2 (1.6-2.3) mg/dL Total Bilirubin 0.8 (0.2-1.3) mg/dL AST 39 H (14-36) U/L ALT 19 (4-34) U/L Alkaline Phosphatase 83 (38-126) U/L Troponin I (0.000-0.034) ng/mL Total Protein 6.6 (6.3-8.2) g/dL Albumin 3.7 (3.5-5.0) g/dL Coronavirus (PCR) Not Detected (Not Detectd) Influenza Type A RNA Not Detected (Not Detectd) Influenza Type B (PCR) Not Detected (Not Detectd) Disposition Clinical Impression: COPD exacerbation, Pneumonia Disposition: ADMITTED IP TO THIS HOSP Condition: Stable Is patient prescribed a controlled substance at d/c from ED?: No Referrals: Saroj Vides MD [Primary Care Provider] - 1-2 days Time of Disposition: 20:09
[2021-12-02 17:01] LABS: Anisocytosis Slight; HCT 38.5 % (34.0-46.0); HGB 12.8 gm/dL (11.4-16.0); Hypochromasia Slight; MCH 36.1 pg (25.0-35.0); MCHC 33.2 g/dL (31.0-37.0); MCV 108.8 fL (80.0-100.0); Macrocytosis Marked; Mean Platelet Volume 14.7; Platelet Count 150 k/uL (150-450); Poikilocytosis Slight; RBC 3.54 m/uL (3.80-5.40); RDW 19.6 % (11.5-15.5); WBC 4.1 k/uL (3.8-10.6)
[2021-12-02 17:08] LABS: Partial Thromboplastin Time 20.1 sec (22.0-30.0)
--- NOTE | 2021-12-02 17:20 | XR ---
EXAMINATION TYPE: XR chest 2V DATE OF EXAM: 12/02/2021 COMPARISON: 02/17/2021 INDICATION: Dysrhythmia and shortness of breath TECHNIQUE: Frontal and lateral views of the chest are obtained. FINDINGS: The heart size is normal. The pulmonary vasculature is normal. Well patchy infiltrate is within the left midlung. Findings nonspecific. Correlate for atelectasis an d pneumonia. Consider atypical pneumonia.. IMPRESSION: 1. Mild nonspecific patchy infiltrates in the left mid lung. Correlate for pneumonia and atypical pne umonia.
[2021-12-02 17:40] LABS: ALT 19 U/L (4-34); African American GFR (CKD) >90 (>60 ml/min/1.73 sqM); Anion Gap 8 mmol/L; Blood Urea Nitrogen 8 mg/dL (7-17); Calcium 8.7 mg/dL (8.4-10.2); Carbon Dioxide 23 mmol/L (22-30); Chloride 101 mmol/L (98-107); Glucose 110 mg/dL (74-99); Non-African American GFR(CKD) >90 (>60 ml/min/1.73 sqM); Sodium 132 mmol/L (137-145); Total Bilirubin 0.8 mg/dL (0.2-1.3)
[2021-12-02 17:41] LABS: Eosinophils # (M) 0.04 k/uL (0-0.7); Lymphocytes # (M) 0.62 k/uL (1.0-4.8); Monocytes # (M) 0.12 k/uL (0-1.0); Neutrophils # (M) 3.32 k/uL (1.3-7.7); Neutrophils % (M) 81 %; Nucleated Red Blood Cells 0 /100 WBC (0-0); Total Cells Counted 100
[2021-12-02 17:43] LABS: AST 39 U/L (14-36); Albumin 3.7 g/dL (3.5-5.0); Alkaline Phosphatase 83 U/L (38-126); Potassium 4.5 mmol/L (3.5-5.1); Total Protein 6.6 g/dL (6.3-8.2)
[2021-12-02 17:44] LABS: Magnesium 2.2 mg/dL (1.6-2.3)
[2021-12-02] MEDS ORDERED: ALBUTEROL NEBULIZED 2.5 MG/3 ML INHALATION STA (17:56)
[2021-12-02] MEDS ORDERED: SODIUM CHLORIDE 0.9% 500 ML 500 ML IV ONE (17:56)
[2021-12-02] MEDS ORDERED: IPRATROPIUM-ALBUTEROL 3 ML NEB INHALATION STA (17:56)
--- NOTE | 2021-12-02 20:02 | CT ---
CT CHEST FOR PULMONARY EMBOLISM. EXAMINATION TYPE: CT angio chest DATE OF EXAM: 12/02/2021 INDICATION: SOB CT DLP: 307.6 mGycm, Automated exposure control for dose reduction was used. CONTRAST: Patient injected with 65 mL of Isovue 370. COMPARISON: None TECHNIQUE: CT of the chest is performed on a spiral scan at 2 mm thick sections. Study is performed with intravenous contrast timed for evaluation for pulmonary embolism. This will limit additional po rtions of the evaluation. 3-D MIP images reconstructed by the technologist are reviewed on the compu ter in the coronal and sagittal planes. FINDINGS: No persistent filling defects are evident to suggest an acute pulmonary embolism. No mediastinal or hilar adenopathy enlarged by CT criteria is evident. Few small lymph nodes are in t he pretracheal space. The ascending aorta diameter at the level of the main pulmonary artery is 3.2 c m. The main pulmonary artery diameter at the bifurcation is 2.9 cm. There is an irregular mass in the posterior left upper lung field measuring 2.0 x 2.6 cm. Series 406 image 38. This extends towards the left suprahilar region. There is an irregular density within the a nterior left upper lung field measuring 1.8 x 2.9 cm. Series 406 image 57. Subtle density appears to be within the right suprahilar region measuring 1.2 cm. Series 406 image 58. There Is a 0.9 cm densit y within the medial left midlung. Series 406 image 63. A peripheral 0.8 cm density is present, image 65. Punctate peripheral density is present on the right, image 68. There is a 3.3 x 1.8 cm mass left mid lung. Slightly more anterior is a 1.1 cm density. Additional 1 to 2 cm patchy densities at the osmin ng bases. Correlate for neoplasm. Infectious etiologies could be considered. Limited CT section through the upper abdomen are unremarkable. IMPRESSIONS: 1. Extensive irregular densities through the bilateral lung mccoy. Metastatic disease and infectious etiology should be considered. Follow-up is recommended. 2. No acute pulmonary embolism.
[2021-12-02] MEDS ORDERED: cefTRIAXone IN SWFI 1,000 MG/10 ML SYRINGE IVP STA (20:03)
[2021-12-02] MEDS ORDERED: AZITHROMYCIN 500 MG in SODIUM CHLORIDE 0.9% 250 ML IVPB STA (20:03)
[2021-12-02] MEDS ORDERED: NALOXONE 0.4 MG/ML 1 ML VIAL IV PRN (20:06)
[2021-12-02] MEDS: SODIUM CHLORIDE 0.9% 1,000 ML IV SCH (22:12)
--- NOTE | 2021-12-03 03:25 | P.HPIM ---
History of Present Illness H&P Date: 12/02/21 Chief Complaint: tachycardia, hypoxemia 61 year old female with myelodysplastic sydrome , COPD not on home oxygen Patient comes into the hospital for evaluation from her doctor's office. She reports that she was at her doctor's office for regular checkup and follow-up when he noticed that her heart was racing and she was hypoxemic for which he recommended that she goes to the hospital. She denies any recent travel or history of blood clots she denies any chest pain she reports that she has history of COPD but she hasn't noticed any changes recently she's been getting tired and fatigued but she is known to have myelodysplastic syndrome she is to get iron infusions to correct her hemoglobin level. However which she notices over the past 4 weeks been having random episodes of vertigo sometimes with changing position other times while just laying down in bed the subserosa so severe that she has to close her eyes. She denies any other focal neuro deficits. She also reports that occasionally she would have episodes of nausea and vomiting with with that. Denies any fevers or chills denies any changes in her baseline cough or phlegm production denies any chest pain denies any upper respiratory infection symptoms like. In the ED workup showed mild hyponatremia and elevated d-dimer and EKG showed sinus tachycardia Viral panel was negative CT angios the chest showed no acute PE but showed extensive irregular densities bilateral lungs infectious versus metastatic in origin. Patient denies any changes in her weights she actually reports gaining weight. She denies any hemoptysis or GI bleeding. She claims to be up-to-date on her age appropriate cancer screening she missed a mammogram this year but last year was unremarkable Colonoscopy was done couple years ago and showed some polyps Patient has [id number] smoking history quit 1 year ago Review of Systems Pertinent positives as noted in HPI. All other systems were reviewed and are negative Past Medical History Past Medical History: Blood Disorder, COPD Additional Past Medical History / Comment(s): Pancytopenia, iron deficiency anemia, COPD, myelodysplastic syndrome History of Any Multi-Drug Resistant Organisms: None Reported Past Surgical History: No Surgical Hx Reported Additional Past Surgical History / Comment(s): tooth extraction, COLONOSCOPY Past Anesthesia/Blood Transfusion Reactions: No Reported Reaction Additional Past Anesthesia/Blood Transfusion Reaction / Comment(s): unknown family hx-pt is adopted Past Psychological History: Depression Smoking Status: Former smoker Past Alcohol Use History: None Reported Past Drug Use History: None Reported - Past Family History Father History Unknown: Yes Additional Family Medical History / Comment(s): unknown, adopted at Mother History Unknown: Yes Additional Family Medical History / Comment(s): unknown, adopted at Medications and Allergies Home Medications Medication Instructions Recorded Confirmed Type Albuterol Inhaler [Ventolin Hfa 2 puff INHALATION RT-Q6H PRN 08/08/20 12/02/21 History Inhaler] Tiotropium [place] [Spiriva] 1 cap INHALATION RT-DAILY 01/22/21 12/02/21 History Ipratropium-Albuterol Nebulize 3 ml INHALATION RT-QID PRN 12/02/21 12/02/21 History [Duoneb 0.5 mg-3 mg/3 ml Soln] Allergies Allergy/AdvReac Type Severity Reaction Status Date / Time ferumoxytol Allergy Severe Rash/Hives Verified 12/02/21 17:43 Physical Exam Vitals: Vital Signs Temp Pulse Pulse Resp BP Pulse Ox 12/02/21 19:59 100 12/02/21 19:33 103 H 12/02/21 19:00 105 H 22 116/81 95 12/02/21 18:30 106 H 22 115/61 96 12/02/21 18:00 107 H 22 113/71 96 12/02/21 17:30 109 H 22 116/77 96 12/02/21 17:16 111 H 12/02/21 16:45 122 H 30 H 99/75 95 12/02/21 15:47 98.9 F 124 H 20 115/67 92 L Intake and Output 12/02/21 12/02/21 12/02/21 06:59 14:59 22:59 Other: Weight 62.596 kg Constitutional: No acute distress, conversant, pleasant Eyes: Anicteric sclerae, moist conjunctiva, Pupils equal round reactive to light ENMT: NC/AT Oropharynx clear, no erythema, or exudates Neck: Supple, FROM, no masses, or JVD No carotid bruits No thyromegaly Lungs: Clear to auscultation Clear to percussion Normal respiratory effort, no accessory muscle use Cardiovascular: Heart regular in rate and rhythm, No murmurs, gallops, or rubs No peripheral edema Abdominal: Soft Nontender, no guarding, rebound or rigidity Abdomen moving with respiration Normoactive bowel sounds No hepatomegaly, No splenomegaly No palpable mass No abdominal wall hernia noted Skin: Normal temperature, tone, texture, turgor No induration No subcutaneous nodules No rash, lesions No ulcers Extremities: No digital cyanosis No clubbing Pedal pulses intact and symmetrical Radial pulses intact and symmetrical No calf tenderness Psychiatric: Alert and oriented to person, place and time Appropriate affect fair judgement Neuro Muscles Strength 4/5 in all 4 extremities Sensation to light touch grossly present throughout Cranial nerves II-XII grossly intact No focal sensory deficits Lymphatics: no palpable cervical or supraclavicular , or inguinal lymph nodes Results CBC & Chem 7: 12/02/21 16:44 12/02/21 17:07 Labs: Abnormal Lab Results - Last 24 Hours (Table) 12/02/21 12/02/21 12/02/21 Range/Units 16:44 16:44 17:07 RBC 3.54 L (3.80-5.40) m/uL MCV 108.8 H (80.0-100.0) fL MCH 36.1 H (25.0-35.0) pg RDW 19.6 H (11.5-15.5) % Lymphocytes # (Manual) 0.62 L (1.0-4.8) k/uL Macrocytosis Marked A APTT 20.1 L (22.0-30.0) sec D-Dimer 2.26 H (<0.60) mg/L FEU Sodium 132 L (137-145) mmol/L Creatinine 0.44 L (0.52-1.04) mg/dL Glucose 110 H (74-99) mg/dL AST 39 H (14-36) U/L Assessment and Plan Assessment: During check cardiac pneumonia versus metastatic disease Episodes of vertigo Elevated d-dimer History of COPD not on oxygen Myelodysplastic syndrome CT angios the chest negative for acute PE, showed multiple extensive irregular densities bilaterally in the lungs Check blood cultures Check urine Legionella Patient initiated on azithromycin and Rocephin Supplemental oxygen as needed Monitor vital signs Pulmonary consult and oncology consult Continue with DuoNeb's when necessary as needed Baseline white count is leukopenic currently at 4.5 Mild hyponatremia IV fluid hydration with normal saline Monitor sodium Heparin subcu 3 times a day for DVT prophylaxis Full code
[2021-12-03] MEDS: IPRATROPIUM 0.5 MG/2.5 ML NEBU INHALATION SCH ×4 (07:18→19:39)
[2021-12-03] MEDS: HEPARIN SODIUM,PORCINE/PF 5,000 UNIT/0.5 ML SYRINGE SQ SCH ×2 (08:28→17:07)
[2021-12-03 08:29] LABS: Anisocytosis Slight; HCT 36.6 % (34.0-46.0); HGB 11.6 gm/dL (11.4-16.0); Hypochromasia Moderate; MCH 35.6 pg (25.0-35.0); MCHC 31.6 g/dL (31.0-37.0); MCV 112.8 fL (80.0-100.0); Macrocytosis Marked; Mean Platelet Volume 13.5; Poikilocytosis Slight; RBC 3.25 m/uL (3.80-5.40); RDW 19.3 % (11.5-15.5); WBC 3.6 k/uL (3.8-10.6)
[2021-12-03 08:40] LABS: African American GFR (CKD) >90 (>60 ml/min/1.73 sqM); Anion Gap 9 mmol/L; Blood Urea Nitrogen 8 mg/dL (7-17); Calcium 8.3 mg/dL (8.4-10.2); Carbon Dioxide 23 mmol/L (22-30); Chloride 106 mmol/L (98-107); Glucose 102 mg/dL (74-99); LDH 905 U/L (313-618); Non-African American GFR(CKD) >90 (>60 ml/min/1.73 sqM); Potassium 3.9 mmol/L (3.5-5.1); Sodium 138 mmol/L (137-145)
[2021-12-03] MEDS: AZITHROMYCIN 500 MG in SODIUM CHLORIDE 0.9% 250 ML IVPB SCH (10:10)
[2021-12-03 11:05] LABS: Platelet Count 135 k/uL (150-450)
[2021-12-03 11:16] LABS: Blast Cells # (M) 0.07 k/uL (0); Monocytes # (M) 0.04 k/uL (0-1.0); Nucleated Red Blood Cells 0 /100 WBC (0-0)
[2021-12-03 11:19] LABS: Band Neutrophils % 2 %; Basophils # (M) 0.04 k/uL (0-0.2); Eosinophils # (M) 0.11 k/uL (0-0.7); Lymphocytes # (M) 0.83 k/uL (1.0-4.8); Metamyelocytes # (M) 0.04 k/uL (0); Metamyelocytes % 1 %; Neutrophils % (M) 69 %; Total Cells Counted 200
[2021-12-03 11:23] LABS: Large Platelets Present; Polychromasia Present
--- NOTE | 2021-12-03 12:17 | CA ---
Transthoracic Echo Report Name: Nirmala Duque Age: 61 Gender: F : 1960 Exam Date: 12/03/2021 07:49 Exam Location: [facility] Ht (in): 62 Wt (lb): 138 Ordering Physician: Yassine Rivas MD Attending/Referring Phys: [id number], Rob Haz Tech Sumi Lei RDCS Procedure CPT: Indications: NICKIE Cardiac Hx: Pt has COPD Technical Quality: Fair Contrast 1: Total Dose (mL): Contrast 2: Total Dose (mL): MEASUREMENTS (Male / Female) Normal Values 2D ECHO LV Diastolic Diameter PLAX 3.5 cm 4.2 - 5.9 / 3.9 - 5.3 cm LV Systolic Diameter PLAX 2.2 cm IVS Diastolic Thickness 1.2 cm 0.6 - 1.0 / 0.6 - 0.9 cm LVPW Diastolic Thickness 1.0 cm 0.6 - 1.0 / 0.6 - 0.9 cm LV Relative Wall Thickness 0.6 RV Internal Dim ED PLAX 2.2 cm M-MODE Aortic Root Diameter MM 3.2 cm LA Systolic Diameter MM 2.9 cm LA Ao Ratio MM 0.9 MV E Point Septal Separation 0.9 cm AV Cusp Separation MM 2.0 cm DOPPLER AV Peak Velocity 112.0 cm/s AV Peak Gradient 5.0 mmHg AI Peak Velocity 196.0 cm/s AI Peak Gradient 15.4 mmHg AI Pressure Half Time 1332.8 ms MV Area PHT 5.0 cm??? MR Peak Velocity 166.4 cm/s MR Peak Gradient 11.1 mmHg Mitral E Point Velocity 84.4 cm/s Mitral A Point Velocity 26.4 cm/s Mitral E to A Ratio 3.2 MV Deceleration Time 152.7 ms TR Peak Velocity 163.8 cm/s TR Peak Gradient 10.7 mmHg Right Ventricular Systolic Press 15.7 mmHg FINDINGS Left Ventricle Mildly increased septal wall thickness. Mildly increased posterior wall thickness. Left ventricular ejection fraction is estimated at 55-60 %. Left ventricular cavity size normal. Right Ventricle The right ventricle is normal in size and function. Right Atrium The right atrium is normal in size. Left Atrium The left atrium is normal in size. Mitral Valve Structurally normal mitral valve without significant stenosis or prolapse. There is mild mitral regurgitation. Aortic Valve Structurally normal aortic valve without significant sclerosis or stenosis. There is a trace of aortic regurgitation. Tricuspid Valve Structurally normal tricuspid valve without significant stenosis. Pulmonary artery systolic pressure is normal. Mild tricuspid regurgitation. Pulmonic Valve Structurally normal pulmonic valve without significant stenosis. There is no pulmonic regurgitation. Pericardium Small pericardial effusion. Aorta Normal aortic root dimension. CONCLUSIONS Normal LV systolic function mild mitral regurgitation and mild tricuspid regurgitation Previewed by: Dr. Kana Lipscomb MD (Electronically Signed) Final Date: 03 December 2021 12:16
[2021-12-03] MEDS: methylPREDNISolone SOD SUCCI 125 MG/2 ML VIAL IV SCH ×2 (12:29→17:07)
--- NOTE | 2021-12-03 13:58 | CT ---
EXAMINATION TYPE: CT abdomen pelvis w con DATE OF EXAM: 12/03/2021 COMPARISON: No previous CT scan is available for comparison. HISTORY: Lung metastasis. CT DLP: 1059 mGycm Automated exposure control for dose reduction was used. TECHNIQUE: Helical acquisition of images was performed from the lung bases through the pelvis. CONTRAST: Performed without Oral Contrast and with IV Contrast, patient injected with 100ml mL of Isovue 300. FINDINGS: LUNG BASES: Bilateral basal pulmonary nodules and irregular infiltration, kindly refer to the jesus nolan description on yesterday's CT scan of the chest report. LIVER/GB: Millimetric left hepatic lobe hypodensity likely representing a hepatic cyst. No other defi nite hepatic focal lesion identified. The gallbladder is not distended. PANCREAS: No significant abnormality is seen. SPLEEN: No significant abnormality is seen. ADRENALS: No significant abnormality is seen. KIDNEYS: No significant abnormality is seen. FREE AIR: No free air is visualized. RETROPERITONEAL ADENOPATHY: None visualized REPRODUCTIVE ORGANS: 2 cm right ovarian/adnexal cyst, please correlate with pelvic ultrasound results . No gross uterine or adnexal mass otherwise. URINARY BLADDER: Not completely distended with slightly hyperdense content, please correlate with ur inalysis results. PELVIC ADENOPATHY: None visualized. OSSEOUS STRUCTURES: Degenerative changes of the lower lumbar spine and hip joints. BOWEL: Unremarkable nondistended stomach, duodenum and small bowel. Fluid-filled rectum and segments of the colon with mild wall thickening. Please correlate clinically for diarrhea. Normal appendix. N o gross colonic mass however a small lesion cannot be excluded. Recommend correlation with colonoscop y results. OTHER: Extensive arterial atherosclerotic calcification with severe stenosis of the aortic bifurcatio n and right common iliac artery. No ascites. IMPRESSION: No definite suspicious lesion or lymphadenopathy seen in the abdomen or the pelvis. Multiple incident al findings and recommendations as detailed above.
--- NOTE | 2021-12-03 14:50 | P.CNPUL ---
History of Present Illness Consult date: 12/03/21 Reason for consult: dyspnea, COPD, lung mass History of present illness: This is a 60-year-old female patient with known history of advanced COPD with an FEV1 of 35% of predicted at baseline. The patient and on a combination of Spiriva and Proair and albuterol nebulizers on an as needed basis the patient is known to have also myelodysplasia. The patient has pancytopenia and the patient's been followed up by hematology oncology. The patient presents to the hospital because of worsening shortness of breath. Her last hospitalization for COPD exacerbation was in February 2021 and at that time the patient was seen and sedation was given a CAT scan of the chest that showed a crit patchy peripheral pulmonary infiltrates largest in the left upper lobe. During this current admission, the patient is coming in for the same essentially having worsening shortness of breath. The patient initially went to her doctor's office and she was noted to be having some tachycardia and hypoxemia and was recommended for this patient to come in to the hospital. No fever. No chills. No significant sputum production. In the emergency department, the patient was evaluated and the viral panel was negative. The patient was given a chest x-ray and following that the patient was given a CAT scan of the chest and the findings were quite abnormal as the patient was found to have multiple irregular masses in the lungs largest in the left upper lobe measuring around 2.6 x 2.0 cm in size and another one measuring 2.9 x 1.8 cm in size and several other pulmonary nodules and regular densities throughout the bilateral lung mccoy and the findings are highly suspicious for metastatic disease. No evidence of any acute pulmonary embolism. In comparison to the earlier CAT scan from last year, things have progressed significantly and those are obviously new findings. The patient denies having any significant Discharge symptoms. No hemoptysis. No pleurisy. No previous history of malignancy. She has [id number] smoking history and she quit smoking in January 2021. Her echocardiogram showed a normal LV function without any significant valvular abnormalities. She describes that she was being unsteady and for that reason an MRI of the brain was also noted. As for the CAT scan of the abdomen and pelvis, showed no evidence of any suspi cious lesions or lymphadenopathy within the abdomen or pelvis. There was a 2 cm right ovarian cyst, an incidental finding and there was also left hepatic cyst. Review of Systems Constitutional: Denies chills, Denies fever Eyes: denies as per HPI, denies blurred vision, denies bulging eye, denies decreased vision, denies diplopia, denies discharge, denies dry eye, denies irritation, denies itching, denies pain, denies photophobia, denies loss of peripheral vision, denies loss of vision, denies tunnel vision/blind spots Ears: deny: decreased hearing, ear discharge, earache, tinnitus Ears, nose, mouth and throat: Denies headache, Denies sore throat Breasts: absent: as per HPI, change in shape, gynecomastia, masses, nipple discharge, pain, skin changes, swelling Cardiovascular: Reports decreased exercise tolerance, Reports dyspnea on exertion Respiratory: Reports cough, Reports dyspnea, Reports wheezing Gastrointestinal: Reports as per HPI Genitourinary: Reports as per HPI Menstruation: Reports as per HPI Musculoskeletal: Reports as per HPI Musculoskeletal: absent: ankle pain, ankle stiffness, ankle swelling Integumentary: Reports as per HPI Neurological: Reports as per HPI Psychiatric: Reports as per HPI Endocrine: Reports as per HPI Hematologic/Lymphatic: Reports as per HPI Allergic/Immunologic: Reports as per HPI Past Medical History Past Medical History: Blood Disorder, COPD Additional Past Medical History / Comment(s): Pancytopenia, iron deficiency anemia, COPD, myelodysplastic syndrome History of Any Multi-Drug Resistant Organisms: None Reported Past Surgical History: No Surgical Hx Reported Additional Past Surgical History / Comment(s): tooth extraction, COLONOSCOPY Past Anesthesia/Blood Transfusion Reactions: No Reported Reaction Additional Past Anesthesia/Blood Transfusion Reaction / Comment(s): unknown fami ly hx-pt is adopted Past Psychological History: Depression Smoking Status: Former smoker Past Alcohol Use History: None Reported Past Drug Use History: None Reported - Past Family History Father History Unknown: Yes Additional Family Medical History / Comment(s): unknown, adopted at Mother History Unknown: Yes Additional Family Medical History / Comment(s): unknown, adopted at Medications and Allergies Home Medications Medication Instructions Recorded Confirmed Type Albuterol Inhaler [Ventolin Hfa 2 puff INHALATION RT-Q6H PRN 08/08/20 12/02/21 History Inhaler] Tiotropium [place] [Spiriva] 1 cap INHALATION RT-DAILY 01/22/21 12/02/21 History Ipratropium-Albuterol Nebulize 3 ml INHALATION RT-QID PRN 12/02/21 12/02/21 History [Duoneb 0.5 mg-3 mg/3 ml Soln] Allergies Allergy/AdvReac Type Severity Reaction Status Date / Time ferumoxytol Allergy Severe Rash/Hives Verified 12/02/21 17:43 Physical Exam Vitals: Vital Signs Temp Pulse Pulse Pulse Resp BP BP 12/03/21 12:30 98.1 F 109 H 20 119/73 12/03/21 11:26 100 12/03/21 11:14 100 12/03/21 08:20 98.4 F 105 H 22 107/71 12/03/21 07:30 108 H 12/03/21 07:18 108 H 12/03/21 04:16 97.9 F 104 H 20 102/63 12/03/21 00:29 116 H 18 117/72 12/02/21 19:59 100 12/02/21 19:33 103 H 12/02/21 19:00 105 H 22 116/81 12/02/21 18:30 106 H 22 115/61 12/02/21 18:00 107 H 22 113/71 12/02/21 17:30 109 H 22 116/77 12/02/21 17:16 111 H 12/02/21 16:45 122 H 30 H 99/75 12/02/21 15:47 98.9 F 124 H 20 115/67 Pulse Ox 12/03/21 12:30 96 12/03/21 11:26 12/03/21 11:14 12/03/21 08:20 94 L 12/03/21 07:30 12/03/21 07:18 12/03/21 04:16 98 12/03/21 00:29 96 12/02/21 19:59 12/02/21 19:33 12/02/21 19:00 95 12/02/21 18:30 96 12/02/21 18:00 96 12/02/21 17:30 96 12/02/21 17:16 12/02/21 16:45 95 12/02/21 15:47 92 L Intake and Output 12/02/21 12/03/21 12/03/21 22:59 06:59 14:59 Intake Total 180 Balance 180 Intake: Oral 180 Other: # Voids 1 1 2 Weight 62.596 kg 62.596 kg GENERAL EXAM: Alert, very pleasant, 60-year-old white female, on 3 L of nasal cannula with a pulse ox of 96% HEAD: Normocephalic/atraumatic. EYES: Normal reaction of pupils, equal size. Conjunctiva pink, sclera white. NOSE: Clear with pink turbinates. THROAT: No erythema or exudates. NECK: No masses, no JVD, no thyroid enlargement, no adenopathy. CHEST: No chest wall deformity. Symmetrical expansion. LUNGS: Equal air entry with diminished breath sounds, some limited rales at the bases. CVS: Regular rate and rhythm, normal S1 and S2, no gallops, no murmurs, no rubs ABDOMEN: Soft, nontender. No hepatosplenomegaly, normal bowel sounds, no guarding or rigidity. EXTREMITIES: No clubbing, no edema, no cyanosis, 2+ pulses and upper and lower extremities. MUSCULOSKELETAL: Muscle strength and tone normal. SPINE: No scoliosis or deformity SKIN: No rashes CENTRAL NERVOUS SYSTEM: Alert and oriented -3. No focal deficits, tone is normal in all 4 extremities. PSYCHIATRIC: Alert and oriented -3. Appropriate affect. Intact judgment and insight. Results - Laboratory Findings CBC and BMP: 12/03/21 08:01 12/03/21 08:01 PT/INR, D-dimer PT 11.0 sec (9.0-12.0) 12/02/21 16:44 INR 1.0 (<1.2) 12/02/21 16:44 D-Dimer 2.26 mg/L FEU (<0.60) H 12/02/21 16:44 Abnormal lab findings: Abnormal Labs 12/02/21 12/02/21 12/02/21 16:44 16:44 17:07 WBC RBC 3.54 L MCV 108.8 H MCH 36.1 H RDW 19.6 H Plt Count Blast Cells % Lymphocytes # (Manual) 0.62 L Metamyelocytes # (Man) Blast Cells # (Man) Macrocytosis Marked A APTT 20.1 L D-Dimer 2.26 H Sodium 132 L Creatinine 0.44 L Glucose 110 H Calcium AST 39 H Lactate Dehydrogenase Procalcitonin 12/03/21 12/03/21 12/03/21 08:01 08:01 08:01 WBC 3.6 L RBC 3.25 L MCV 112.8 H MCH 35.6 H RDW 19.3 H Plt Count 135 L Blast Cells % 2 H* Lymphocytes # (Manual) 0.83 L Metamyelocytes # (Man) 0.04 H Blast Cells # (Man) 0.07 H Macrocytosis Marked A APTT D-Dimer Sodium Creatinine 0.50 L Glucose 102 H Calcium 8.3 L AST Lactate Dehydrogenase 905 H Procalcitonin 0.17 H Assessment and Plan Plan: Acute exacerbation of COPD with secondary shortness of breath Advanced COPD with an FEV1 of 35% at baseline, maintained on a combination of Spiriva and pro-air rescue inhaler medicines bases addition to albuterol updrafts Multiple irregular bilateral pulmonary nodules largest in the left upper lobe and the left midlung, highly concerning for metastatic cancer of a lung primary. CAT scan of the abdomen is negative. MRI of the brain is still in progress MDS with secondary pancytopenia History of smoking, [id number] and the patient quit smoking approximately year ago Plan We'll treat the COPD exacerbation with a combination of DuoNeb nebulized treatments around the clock, IV Solu-Medrol and the patient will be given empiric antibiotic coverage and accommodation of Rocephin and Zithromax Supplemented oxygen to maintain saturation above 90% IV fluids with normal saline Discussed the CAT scan results with the patient. The patient will need an outpatient PET CT following that a bronchoscopy with just monitor biopsies didn't establish tissue diagnosis with high concern of malignancy We'll continue to follow
--- NOTE | 2021-12-03 17:00 | MR ---
EXAMINATION TYPE: MR brain wo/w con DATE OF EXAM: 12/03/2021 COMPARISON: None HISTORY: possible metastasis, episodes of vertigo TECHNIQUE: Multiplanar, multisequence images of the brain and brainstem is performed without and with IV contras t, utilizing 6 mL intravenous Gadavist . FINDINGS: Diffusion weighted images demonstrate no evidence of a recent infarct or other diffusion ab normality. There is no extra-axial fluid collection or significant white matter signal abnormality. The ventricular system and cisternal spaces are normal in size and appearance. The brain volume is age appropriate. Midline structures demonstrate normal morphology. The craniocervical junction appears within normal limits. Post contrast images demonstrate no abnormal enhancement. The dural venous sinuses appear pa tent. The visualized sinuses are clear and the globes are intact. IMPRESSION: 1. No evidence of intracranial mass or acute/subacute infarct. 2. Nonspecific white matter changes, likely secondary to small vessel ischemic disease.
--- NOTE | 2021-12-03 17:40 | P.CONS ---
History of Present Illness - Reason for Consult Consult date: 12/03/21 anemia, MDS Requesting physician: Yassine Rivas - Chief Complaint SOB, vertigo - History of Present Illness Ms. Duque is a very pleasant female who has been seen by our practice in the past for anemia/pancytopenia. Counts were trended and it was noted that with acute illness they would drop. Pt did report a past Hx of heavy EOTH use so, this was felt to contribute to the weak marrow response during stress. She did have EGD/colon 08/24, no unusual findings to account for iron def. She had BM bx 04/26 revealing MDS. She received iron and was treated with ANNMARIE and her Hgb improved to normal, Hgb in ofc 10/13/21 was 13.1. She comes in to hospital with c/o SOB, vertigo, dizzy when walking and diarrhea, x 1 week, persistent, progressive. CTA was neg for PE but mult densities noted. Hgb 11.6. Pt states she feels a little better today then on admit Review of Systems 10 point ROS is neg except as stated in HPI Past Medical History Past Medical History: Blood Disorder, COPD Additional Past Medical History / Comment(s): Pancytopenia, iron deficiency anemia, COPD, myelodysplastic syndrome History of Any Multi-Drug Resistant Organisms: None Reported Past Surgical History: No Surgical Hx Reported Additional Past Surgical History / Comment(s): tooth extraction, COLONOSCOPY Past Anesthesia/Blood Transfusion Reactions: No Reported Reaction Additional Past Anesthesia/Blood Transfusion Reaction / Comm: unknown family hx- pt is adopted Past Psychological History: Depression Smoking Status: Former smoker Past Alcohol Use History: None Reported Past Drug Use History: None Reported - Past Family History Father History Unknown: Yes Additional Family Medical History / Comment(s): unknown, adopted at Mother History Unknown: Yes Additional Family Medical History / Comment(s): unknown, adopted at Medications and Allergies Home Medications Medication Instructions Recorded Confirmed Type Albuterol Inhaler [Ventolin Hfa 2 puff INHALATION RT-Q6H PRN 08/08/20 12/02/21 History Inhaler] Tiotropium Edison [Spiriva] 1 cap INHALATION RT-DAILY 01/22/21 12/02/21 History Ipratropium-Albuterol Nebulize 3 ml INHALATION RT-QID PRN 12/02/21 12/02/21 History [Duoneb 0.5 mg-3 mg/3 ml Soln] Allergies Allergy/AdvReac Type Severity Reaction Status Date / Time ferumoxytol Allergy Severe Rash/Hives Verified 12/02/21 17:43 Physical Exam Vitals: Vital Signs Temp Pulse Pulse Pulse Resp BP BP 12/03/21 16:30 98.2 F 108 H 20 104/65 12/03/21 15:32 112 H 12/03/21 15:21 112 H 12/03/21 12:30 98.1 F 109 H 20 119/73 12/03/21 11:26 100 12/03/21 11:14 100 12/03/21 08:20 98.4 F 105 H 22 107/71 12/03/21 07:30 108 H 12/03/21 07:18 108 H 12/03/21 04:16 97.9 F 104 H 20 102/63 12/03/21 00:29 116 H 18 117/72 12/02/21 19:59 100 12/02/21 19:33 103 H 12/02/21 19:00 105 H 22 116/81 12/02/21 18:30 106 H 22 115/61 12/02/21 18:00 107 H 22 113/71 12/02/21 17:30 109 H 22 116/77 Pulse Ox 12/03/21 16:30 96 12/03/21 15:32 12/03/21 15:21 12/03/21 12:30 96 12/03/21 11:26 12/03/21 11:14 12/03/21 08:20 94 L 12/03/21 07:30 12/03/21 07:18 12/03/21 04:16 98 12/03/21 00:29 96 12/02/21 19:59 12/02/21 19:33 12/02/21 19:00 95 12/02/21 18:30 96 12/02/21 18:00 96 12/02/21 17:30 96 Intake and Output 12/03/21 12/03/21 12/03/21 06:59 14:59 22:59 Intake Total 180 Balance 180 Intake: Oral 180 Other: # Voids 1 2 Weight 62.596 kg - Constitutional General appearance: cooperative, no acute distress, obese - EENT Eyes: anicteric sclerae, EOMI ENT: hearing grossly normal, normal oropharynx - Neck Neck: no lymphadenopathy - Respiratory Respiratory: bilateral: CTA - Cardiovascular Rhythm: regular Heart sounds: normal: S1, S2 Abnormal Heart Sounds: no systolic murmur, no diastolic murmur, no rub, no S3 Gallop, no S4 Gallop, no click, no other leg Peripheral Edema: bilateral: None - Gastrointestinal General gastrointestinal: no absent bowel sounds, no decreased bowel sounds, no distended, no hepatomegaly, no hyperactive bowel sounds, normal bowel sounds, no organomegaly, no rigid, no scaphoid, soft, no splenomegaly, no tenderness, no umbilical hernia, no ventral hernia - Neurologic Neurologic: CNII-XII intact - Musculoskeletal Musculoskeletal: generalized weakness - Psychiatric Psychiatric: A&O x's 3, appropriate affect, intact judgment & insight Results CBC & Chem 7: 12/03/21 08:01 12/03/21 08:01 Labs: Abnormal Lab Results - Last 24 Hours (Table) 12/02/21 12/02/21 12/02/21 Range/Units 16:44 16:44 17:07 WBC (3.8-10.6) k/uL RBC (3.80-5.40) m/uL MCV (80.0-100.0) fL MCH (25.0-35.0) pg RDW (11.5-15.5) % Plt Count (150-450) k/uL Blast Cells % % Lymphocytes # (Manual) 0.62 L (1.0-4.8) k/uL Metamyelocytes # (Man) (0) k/uL Blast Cells # (Man) (0) k/uL Macrocytosis APTT 20.1 L (22.0-30.0) sec D-Dimer 2.26 H (<0.60) mg/L FEU Sodium 132 L (137-145) mmol/L Creatinine 0.44 L (0.52-1.04) mg/dL Glucose 110 H (74-99) mg/dL Calcium (8.4-10.2) mg/dL AST 39 H (14-36) U/L Lactate Dehydrogenase (313-618) U/L Procalcitonin (0.02-0.09) ng/mL 12/03/21 12/03/21 12/03/21 Range/Units 08:01 08:01 08:01 WBC 3.6 L (3.8-10.6) k/uL RBC 3.25 L (3.80-5.40) m/uL MCV 112.8 H (80.0-100.0) fL MCH 35.6 H (25.0-35.0) pg RDW 19.3 H (11.5-15.5) % Plt Count 135 L (150-450) k/uL Blast Cells % 2 H* % Lymphocytes # (Manual) 0.83 L (1.0-4.8) k/uL Metamyelocytes # (Man) 0.04 H (0) k/uL Blast Cells # (Man) 0.07 H (0) k/uL Macrocytosis Marked A APTT (22.0-30.0) sec D-Dimer (<0.60) mg/L FEU Sodium (137-145) mmol/L Creatinine 0.50 L (0.52-1.04) mg/dL Glucose 102 H (74-99) mg/dL Calcium 8.3 L (8.4-10.2) mg/dL AST (14-36) U/L Lactate Dehydrogenase 905 H (313-618) U/L Procalcitonin 0.17 H (0.02-0.09) ng/mL Chest x-ray: report reviewed CT scan - chest: report reviewed Assessment and Plan (1) MDS (myelodysplastic syndrome), low grade Current Visit: Yes Status: Chronic Priority: Medium Code(s): D46.20 - REFRACTORY ANEMIA WITH EXCESS OF BLASTS, UNSPECIFIED SNOMED Code(s): 529026386 Plan: Cont to monitor CBC while inpt, her counts can be expected to drop. Currently the changes in her CBC are mild and not requiring intervention. Anemia work up ordered. CT chest reports mult pulm densities. Discussed case with IM. Plan is for CT AP to evaluate if there are any other suspicious findings. May need biopsy. Attests: I have seen and examined pt, performed H&P, developed impression and plan of care. Discussed with dictator, agree with dictation, documented as a scribe
[2021-12-03 20:47] LABS: Glucose,Whole Blood 169 mg/dL (70-110)
[2021-12-03] MEDS: INSULIN ASPART (NovoLOG) 100 UNIT/ML VIAL SQ SCH (21:30)
[2021-12-03] MEDS: SODIUM CHLORIDE 0.9% 1,000 ML IV SCH (21:31)
[2021-12-04] MEDS: methylPREDNISolone SOD SUCCI 125 MG/2 ML VIAL IV SCH ×4 (00:03→17:45)
[2021-12-04] MEDS: HEPARIN SODIUM,PORCINE/PF 5,000 UNIT/0.5 ML SYRINGE SQ SCH ×3 (00:12→17:46)
[2021-12-04] MEDS: SODIUM CHLORIDE 0.9% 1,000 ML IV SCH ×2 (00:12→13:03)
[2021-12-04 03:09] LABS: % Iron Saturation 8.36 (12.00-45.00); Iron 19 ug/dL (50-170); Total Iron Binding Capacity 221 ug/dL (228-460); Vitamin B12 >2000.0 pg/mL (200.0-944.0)
[2021-12-04 06:21] LABS: Glucose,Whole Blood 140 mg/dL (70-110)
[2021-12-04] MEDS: INSULIN ASPART (NovoLOG) 100 UNIT/ML VIAL SQ SCH ×4 (06:46→21:15)
[2021-12-04] MEDS: IPRATROPIUM 0.5 MG/2.5 ML NEBU INHALATION SCH ×4 (07:20→18:32)
[2021-12-04 08:46] LABS: Anisocytosis Slight; HCT 36.4 % (34.0-46.0); HGB 11.7 gm/dL (11.4-16.0); Hypochromasia Moderate; MCH 35.9 pg (25.0-35.0); MCHC 32.2 g/dL (31.0-37.0); MCV 111.6 fL (80.0-100.0); Macrocytosis Marked; Mean Platelet Volume 13.6; Poikilocytosis Slight; RBC 3.26 m/uL (3.80-5.40); RDW 19.7 % (11.5-15.5); WBC 3.1 k/uL (3.8-10.6)
[2021-12-04 08:51] LABS: ALT 16 U/L (4-34); AST 17 U/L (14-36); African American GFR (CKD) >90 (>60 ml/min/1.73 sqM); Albumin 3.4 g/dL (3.5-5.0); Alkaline Phosphatase 83 U/L (38-126); Anion Gap 8 mmol/L; Blood Urea Nitrogen 9 mg/dL (7-17); Calcium 8.8 mg/dL (8.4-10.2); Carbon Dioxide 22 mmol/L (22-30); Chloride 108 mmol/L (98-107); Glucose 163 mg/dL (74-99); Magnesium 2.1 mg/dL (1.6-2.3); Non-African American GFR(CKD) >90 (>60 ml/min/1.73 sqM); Potassium 3.9 mmol/L (3.5-5.1); Sodium 138 mmol/L (137-145); Total Bilirubin 0.3 mg/dL (0.2-1.3); Total Protein 6.2 g/dL (6.3-8.2)
[2021-12-04] MEDS: AZITHROMYCIN 500 MG in SODIUM CHLORIDE 0.9% 250 ML IVPB SCH (09:10)
--- NOTE | 2021-12-04 10:24 | P.PN ---
Subjective Progress Note Date: 12/04/21 Pt reports improvement in breathing. She has anxiety regarding the possibility of cancer in her lungs. Gen: awake, alert HEENT: normocephalic, atraumatic, good hearing acuity, moist mucous membranes Resp: good air exchange, breathing comfortably with no accessory muscle use, diffuse wheezing CVS: good distal perfusion x 4, regular rate and rhythm without murmurs GI: soft, NTTP, ND : no SPT, no CVAT, genao catheter not present MSK: no pitting edema, no clubbing Neuro: non-focal, moving all extremities Psych: cooperative, euthymic mood Assessment/plan: Diffuse multifocal community acquired pneumonia versus metastatic disease Episodes of vertigo Elevated d-dimer COPD exacerbation Myelodysplastic syndrome CT angios the chest negative for acute PE, showed multiple extensive irregular densities bilaterally in the lungs Check blood cultures, NGTD Check urine Legionella, negative Patient initiated on azithromycin and Rocephin Supplemental oxygen as needed Monitor vital signs Pulmonary consult and oncology consult Continue with DuoNeb's when necessary as needed IV steroids Baseline white count is leukopenic Mild hyponatremia IV fluid hydration with normal saline Monitor sodium Heparin subcu 3 times a day for DVT prophylaxis Full code Objective - Vital Signs Vital signs: Vital Signs Temp 97.5 F L 12/04/21 09:10 Pulse 61 12/04/21 09:10 Resp 18 12/04/21 09:10 BP 128/82 12/04/21 09:10 Pulse Ox 97 12/04/21 09:10 FiO2 32 12/03/21 19:40 Intake & Output 12/03/21 12/04/21 12/04/21 18:59 06:59 18:59 Intake Total 430 358 Balance 430 358 Intake: Oral 430 358 Other: Voiding Method Toilet # Voids 2 1 - Labs CBC & Chem 7: 12/04/21 08:07 12/04/21 08:07 Labs: Abnormal Lab Results - Last 24 Hours (Table) 12/03/21 12/03/21 12/03/21 Range/Units 08:01 08:01 18:10 WBC (3.8-10.6) k/uL RBC (3.80-5.40) m/uL MCV (80.0-100.0) fL MCH (25.0-35.0) pg RDW (11.5-15.5) % Plt Count 135 L (150-450) k/uL Blast Cells % 2 H* % Lymphocytes # (Manual) 0.83 L (1.0-4.8) k/uL Metamyelocytes # (Man) 0.04 H (0) k/uL Blast Cells # (Man) 0.07 H (0) k/uL Macrocytosis Retic Count 3.0 H (0.5-2.0) % Chloride (98-107) mmol/L Creatinine (0.52-1.04) mg/dL Glucose (74-99) mg/dL POC Glucose (mg/dL) (70-110) mg/dL Iron (50-170) ug/dL TIBC (228-460) ug/dL % Saturation (12.00-45.00) Transferrin (204.0-354.0) mg/dL Ferritin (10.0-291.0) ng/mL Total Protein (6.3-8.2) g/dL Albumin (3.5-5.0) g/dL Vitamin B12 (200.0-944.0) pg/mL Procalcitonin 0.17 H (0.02-0.09) ng/mL 12/03/21 12/03/21 12/04/21 Range/Units 18:10 20:32 06:17 WBC (3.8-10.6) k/uL RBC (3.80-5.40) m/uL MCV (80.0-100.0) fL MCH (25.0-35.0) pg RDW (11.5-15.5) % Plt Count (150-450) k/uL Blast Cells % % Lymphocytes # (Manual) (1.0-4.8) k/uL Metamyelocytes # (Man) (0) k/uL Blast Cells # (Man) (0) k/uL Macrocytosis Retic Count (0.5-2.0) % Chloride (98-107) mmol/L Creatinine (0.52-1.04) mg/dL Glucose (74-99) mg/dL POC Glucose (mg/dL) 169 H 140 H (70-110) mg/dL Iron 19 L (50-170) ug/dL TIBC 221 L (228-460) ug/dL % Saturation 8.36 L (12.00-45.00) Transferrin 158.0 L (204.0-354.0) mg/dL Ferritin 590.0 H (10.0-291.0) ng/mL Total Protein (6.3-8.2) g/dL Albumin (3.5-5.0) g/dL Vitamin B12 >2000.0 H (200.0-944.0) pg/mL Procalcitonin (0.02-0.09) ng/mL 12/04/21 12/04/21 Range/Units 08:07 08:07 WBC 3.1 L (3.8-10.6) k/uL RBC 3.26 L (3.80-5.40) m/uL MCV 111.6 H (80.0-100.0) fL MCH 35.9 H (25.0-35.0) pg RDW 19.7 H (11.5-15.5) % Plt Count (150-450) k/uL Blast Cells % % Lymphocytes # (Manual) (1.0-4.8) k/uL Metamyelocytes # (Man) (0) k/uL Blast Cells # (Man) (0) k/uL Macrocytosis Marked A Retic Count (0.5-2.0) % Chloride 108 H (98-107) mmol/L Creatinine 0.39 L (0.52-1.04) mg/dL Glucose 163 H (74-99) mg/dL POC Glucose (mg/dL) (70-110) mg/dL Iron (50-170) ug/dL TIBC (228-460) ug/dL % Saturation (12.00-45.00) Transferrin (204.0-354.0) mg/dL Ferritin (10.0-291.0) ng/mL Total Protein 6.2 L (6.3-8.2) g/dL Albumin 3.4 L (3.5-5.0) g/dL Vitamin B12 (200.0-944.0) pg/mL Procalcitonin (0.02-0.09) ng/mL Microbiology - Last 24 Hours (Table) 12/02/21 22:15 Blood Culture - Preliminary Blood No Growth after 24 hours 12/02/21 22:00 Blood Culture - Preliminary Blood No Growth after 24 hours
--- NOTE | 2021-12-04 11:26 | P.PN ---
Subjective Progress Note Date: 01/02/22 Chief Complaint: tachycardia, hypoxemia 61 year old female with myelodysplastic sydrome , COPD not on home oxygen Patient comes into the hospital for evaluation from her doctor's office. She reports that she was at her doctor's office for regular checkup and follow-up when he noticed that her heart was racing and she was hypoxemic for which he recommended that she goes to the hospital. She denies any recent travel or history of blood clots she denies any chest pain she reports that she has history of COPD but she hasn't noticed any changes recently she's been getting tired and fatigued but she is known to have myelodysplastic syndrome she is to get iron infusions to correct her hemoglobin level. However which she notices over the past 4 weeks been having random episodes of vertigo sometimes with changing position other times while just laying down in bed the subserosa so severe that she has to close her eyes. She denies any other focal neuro deficits. She also reports that occasionally she would have episodes of nausea and vomiting with with that. Denies any fevers or chills denies any changes in her baseline cough or phlegm production denies any chest pain denies any upper respiratory infection symptoms like. In the ED workup showed mild hyponatremia and elevated d-dimer and EKG showed sinus tachycardia Viral panel was negative CT angios the chest showed no acute PE but showed extensive irregular densities bilateral lungs infectious versus metastatic in origin. Patient denies any changes in her weights she actually reports gaining weight. She denies any hemoptysis or GI bleeding. She claims to be up-to-date on her age appropriate cancer screening she missed a mammogram this year but last year was unremarkable Colonoscopy was done couple years ago and showed some polyps Patient has [id number] smoking history quit 1 year ago Interval history: Patient was examined at the bedside. Pulmonary was present during examination. Patient was examined at the bedside. She still complains of exertional dyspnea. She denies any chest pain. No acute changes reported overnight. Physical examination: General: non toxic, no distress, appears at stated age Derm: warm, dry Head: atraumatic, normocephalic, symmetric Eyes: EOMI, no lid lag, anicteric sclera Mouth: no lip lesion, mucus membranes moist Cardiovascular: S1S2 reg, no murmur, positive posterior tibial pulse bilateral, Lungs: Diminished entry bilaterally Abdominal: soft, nontender to palpation, no guarding, no appreciable organom egaly Ext: no gross muscle atrophy, no edema, no contractures Neuro: CN II-XI grossly intact, no focal neuro deficits Psych: Alert, oriented, appropriate affect Assessment and plan: Acute exacerbation of COPD with secondary shortness of breath Advanced COPD with an FEV1 of 35% at baseline -Resume IV steroids and bronchodilator treatment -Pulmonary following -maintained on a combination of Spiriva and pro-air rescue inhaler medicines bases addition to albuterol updrafts Multiple irregular bilateral pulmonary nodules -Antibiotic coverage -largest in the left upper lobe and the left midlung, highly concerning for metastatic cancer of a lung primary. CAT scan of the abdomen is negative. -MRI of the brain is still in progress -CT of the abdomen and pelvis with contrast to rule out malignancy ordered. -Hematology oncology consulted Vertigo and dizziness -MRI of the brain without contrast ordered Mild hyponatremia MDS with secondary pancytopenia -Hematology oncology following History of smoking, [id number] and the patient quit smoking approximately year ago DVT prophylaxis Full code Objective - Vital Signs Vital signs: Vital Signs Temp 97.5 F L 12/04/21 09:10 Pulse 104 H 12/04/21 11:14 Resp 18 12/04/21 09:10 BP 128/82 12/04/21 09:10 Pulse Ox 97 12/04/21 09:10 FiO2 32 12/03/21 19:40 Intake & Output 12/03/21 12/04/21 12/04/21 18:59 06:59 18:59 Intake Total 430 358 Balance 430 358 Intake: Oral 430 358 Other: Voiding Method Toilet Toilet # Voids 2 1 - Labs CBC & Chem 7: 12/04/21 08:07 12/04/21 08:07 Labs: Abnormal Lab Results - Last 24 Hours (Table) 12/03/21 12/03/21 12/03/21 Range/Units 08:01 18:10 18:10 WBC (3.8-10.6) k/uL RBC (3.80-5.40) m/uL MCV (80.0-100.0) fL MCH (25.0-35.0) pg RDW (11.5-15.5) % Plt Count 135 L (150-450) k/uL Blast Cells % 2 H* % Lymphocytes # (Manual) 0.83 L (1.0-4.8) k/uL Metamyelocytes # (Man) 0.04 H (0) k/uL Blast Cells # (Man) 0.07 H (0) k/uL Macrocytosis Retic Count 3.0 H (0.5-2.0) % Chloride (98-107) mmol/L Creatinine (0.52-1.04) mg/dL Glucose (74-99) mg/dL POC Glucose (mg/dL) (70-110) mg/dL Iron 19 L (50-170) ug/dL TIBC 221 L (228-460) ug/dL % Saturation 8.36 L (12.00-45.00) Transferrin 158.0 L (204.0-354.0) mg/dL Ferritin 590.0 H (10.0-291.0) ng/mL Total Protein (6.3-8.2) g/dL Albumin (3.5-5.0) g/dL Vitamin B12 >2000.0 H (200.0-944.0) pg/mL 12/03/21 12/04/21 12/04/21 Range/Units 20:32 06:17 08:07 WBC 3.1 L (3.8-10.6) k/uL RBC 3.26 L (3.80-5.40) m/uL MCV 111.6 H (80.0-100.0) fL MCH 35.9 H (25.0-35.0) pg RDW 19.7 H (11.5-15.5) % Plt Count (150-450) k/uL Blast Cells % % Lymphocytes # (Manual) (1.0-4.8) k/uL Metamyelocytes # (Man) (0) k/uL Blast Cells # (Man) (0) k/uL Macrocytosis Marked A Retic Count (0.5-2.0) % Chloride (98-107) mmol/L Creatinine (0.52-1.04) mg/dL Glucose (74-99) mg/dL POC Glucose (mg/dL) 169 H 140 H (70-110) mg/dL Iron (50-170) ug/dL TIBC (228-460) ug/dL % Saturation (12.00-45.00) Transferrin (204.0-354.0) mg/dL Ferritin (10.0-291.0) ng/mL Total Protein (6.3-8.2) g/dL Albumin (3.5-5.0) g/dL Vitamin B12 (200.0-944.0) pg/mL 12/04/21 Range/Units 08:07 WBC (3.8-10.6) k/uL RBC (3.80-5.40) m/uL MCV (80.0-100.0) fL MCH (25.0-35.0) pg RDW (11.5-15.5) % Plt Count (150-450) k/uL Blast Cells % % Lymphocytes # (Manual) (1.0-4.8) k/uL Metamyelocytes # (Man) (0) k/uL Blast Cells # (Man) (0) k/uL Macrocytosis Retic Count (0.5-2.0) % Chloride 108 H (98-107) mmol/L Creatinine 0.39 L (0.52-1.04) mg/dL Glucose 163 H (74-99) mg/dL POC Glucose (mg/dL) (70-110) mg/dL Iron (50-170) ug/dL TIBC (228-460) ug/dL % Saturation (12.00-45.00) Transferrin (204.0-354.0) mg/dL Ferritin (10.0-291.0) ng/mL Total Protein 6.2 L (6.3-8.2) g/dL Albumin 3.4 L (3.5-5.0) g/dL Vitamin B12 (200.0-944.0) pg/mL Microbiology - Last 24 Hours (Table) 12/02/21 22:15 Blood Culture - Preliminary Blood No Growth after 24 hours 12/02/21 22:00 Blood Culture - Preliminary Blood No Growth after 24 hours
[2021-12-04 11:54] LABS: Glucose,Whole Blood 122 mg/dL (70-110)
[2021-12-04 12:54] LABS: Platelet Count 149 k/uL (150-450)
[2021-12-04 12:58] LABS: Band Neutrophils % 2 %; Eosinophils # (M) 0.03 k/uL (0-0.7); Lymphocytes # (M) 0.31 k/uL (1.0-4.8); Monocytes # (M) 0.09 k/uL (0-1.0); Neutrophils % (M) 85 %
[2021-12-04 12:59] LABS: Blast Cells # (M) 0.03 k/uL (0); Nucleated Red Blood Cells 0 /100 WBC (0-0); Total Cells Counted 200
--- NOTE | 2021-12-04 12:59 | P.PN ---
Subjective Progress Note Date: 12/04/21 This is a 60-year-old female patient with known history of advanced COPD with an FEV1 of 35% of predicted at baseline. The patient and on a combination of Spiriva and Proair and albuterol nebulizers on an as needed basis the patient is known to have also myelodysplasia. The patient has pancytopenia and the patient's been followed up by hematology oncology. The patient presents to the hospital because of worsening shortness of breath. Her last hospitalization for COPD exacerbation was in February 2021 and at that time the patient was seen and sedation was given a CAT scan of the chest that showed a crit patchy peripheral pulmonary infiltrates largest in the left upper lobe. During this current admission, the patient is coming in for the same essentially having wor sening shortness of breath. The patient initially went to her doctor's office and she was noted to be having some tachycardia and hypoxemia and was recommended for this patient to come in to the hospital. No fever. No chills. No significant sputum production. In the emergency department, the patient was evaluated and the viral panel was negative. The patient was given a chest x-ray and following that the patient was given a CAT scan of the chest and the findings were quite abnormal as the patient was found to have multiple irregular masses in the lungs largest in the left upper lobe measuring around 2.6 x 2.0 cm in size and another one measuring 2.9 x 1.8 cm in size and several other p ulmonary nodules and regular densities throughout the bilateral lung mccoy and the findings are highly suspicious for metastatic disease. No evidence of any acute pulmonary embolism. In comparison to the earlier CAT scan from last year, things have progressed significantly and those are obviously new findings. The patient denies having any significant Discharge symptoms. No hemoptysis. No pl eurisy. No previous history of malignancy. She has [id number] smoking history and she quit smoking in January 2021. Her echocardiogram showed a normal LV function without any significant valvular abnormalities. She describes that she was being unsteady and for that reason an MRI of the brain was also noted. As for the CAT scan of the abdomen and pelvis, showed no evidence of any suspicious lesions or lymphadenopathy within the abdomen or pelvis. There was a 2 cm right ovarian cyst, an incidental finding and there was also left hepatic cyst. On today's evaluation of 12/04/2021, the patient sitting better. She is less short of breath and bronchospastic and wheezy yesterday. Concerned about the possibility of having malignancy. This is not certain and the patient will need to have outpatient workup regarding this possibility including a CAT scan and subsequent biopsies if needed. For now, the patient is doing well she is calm and comfortable. She remains on bronchodilators patient remains on examination Rocephin and Zithromax. She remains on IV Solu-Medrol. No other significant events over the past 24 hours. Objective - Vital Signs Vital signs: Vital Signs Temp 97.5 F L 12/04/21 09:10 Pulse 104 H 12/04/21 11:14 Resp 18 12/04/21 09:10 BP 128/82 12/04/21 09:10 Pulse Ox 97 12/04/21 09:10 FiO2 32 12/03/21 19:40 Intake & Output 12/03/21 12/04/21 12/04/21 18:59 06:59 18:59 Intake Total 430 358 Balance 430 358 Intake: Oral 430 358 Other: Voiding Method Toilet Toilet # Voids 2 1 - Exam GENERAL EXAM: Alert, very pleasant, 60-year-old white female, on 3 L of nasal cannula with a pulse ox of 96% HEAD: Normocephalic/atraumatic. EYES: Normal reaction of pupils, equal size. Conjunctiva pink, sclera white. NOSE: Clear with pink turbinates. THROAT: No erythema or exudates. NECK: No masses, no JVD, no thyroid enlargement, no adenopathy. CHEST: No chest wall deformity. Symmetrical expansion. LUNGS: Equal air entry with diminished breath sounds, some limited rales at the bases. CVS: Regular rate and rhythm, normal S1 and S2, no gallops, no murmurs, no rubs ABDOMEN: Soft, nontender. No hepatosplenomegaly, normal bowel sounds, no guarding or rigidity. EXTREMITIES: No clubbing, no edema, no cyanosis, 2+ pulses and upper and lower extremities. MUSCULOSKELETAL: Muscle strength and tone normal. SPINE: No scoliosis or deformity SKIN: No rashes CENTRAL NERVOUS SYSTEM: Alert and oriented -3. No focal deficits, tone is normal in all 4 extremities. PSYCHIATRIC: Alert and oriented -3. Appropriate affect. Intact judgment and insight. - Labs CBC & Chem 7: 12/04/21 08:07 12/04/21 08:07 Labs: Abnormal Lab Results - Last 24 Hours (Table) 12/03/21 12/03/21 12/03/21 Range/Units 18:10 18:10 20:32 WBC (3.8-10.6) k/uL RBC (3.80-5.40) m/uL MCV (80.0-100.0) fL MCH (25.0-35.0) pg RDW (11.5-15.5) % Macrocytosis Retic Count 3.0 H (0.5-2.0) % Chloride (98-107) mmol/L Creatinine (0.52-1.04) mg/dL Glucose (74-99) mg/dL POC Glucose (mg/dL) 169 H (70-110) mg/dL Iron 19 L (50-170) ug/dL TIBC 221 L (228-460) ug/dL % Saturation 8.36 L (12.00-45.00) Transferrin 158.0 L (204.0-354.0) mg/dL Ferritin 590.0 H (10.0-291.0) ng/mL Total Protein (6.3-8.2) g/dL Albumin (3.5-5.0) g/dL Vitamin B12 >2000.0 H (200.0-944.0) pg/mL 12/04/21 12/04/21 12/04/21 Range/Units 06:17 08:07 08:07 WBC 3.1 L (3.8-10.6) k/uL RBC 3.26 L (3.80-5.40) m/uL MCV 111.6 H (80.0-100.0) fL MCH 35.9 H (25.0-35.0) pg RDW 19.7 H (11.5-15.5) % Macrocytosis Marked A Retic Count (0.5-2.0) % Chloride 108 H (98-107) mmol/L Creatinine 0.39 L (0.52-1.04) mg/dL Glucose 163 H (74-99) mg/dL POC Glucose (mg/dL) 140 H (70-110) mg/dL Iron (50-170) ug/dL TIBC (228-460) ug/dL % Saturation (12.00-45.00) Transferrin (204.0-354.0) mg/dL Ferritin (10.0-291.0) ng/mL Total Protein 6.2 L (6.3-8.2) g/dL Albumin 3.4 L (3.5-5.0) g/dL Vitamin B12 (200.0-944.0) pg/mL 12/04/21 Range/Units 11:52 WBC (3.8-10.6) k/uL RBC (3.80-5.40) m/uL MCV (80.0-100.0) fL MCH (25.0-35.0) pg RDW (11.5-15.5) % Macrocytosis Retic Count (0.5-2.0) % Chloride (98-107) mmol/L Creatinine (0.52-1.04) mg/dL Glucose (74-99) mg/dL POC Glucose (mg/dL) 122 H (70-110) mg/dL Iron (50-170) ug/dL TIBC (228-460) ug/dL % Saturation (12.00-45.00) Transferrin (204.0-354.0) mg/dL Ferritin (10.0-291.0) ng/mL Total Protein (6.3-8.2) g/dL Albumin (3.5-5.0) g/dL Vitamin B12 (200.0-944.0) pg/mL Microbiology - Last 24 Hours (Table) 12/02/21 22:15 Blood Culture - Preliminary Blood No Growth after 24 hours 12/02/21 22:00 Blood Culture - Preliminary Blood No Growth after 24 hours Assessment and Plan Plan: Acute exacerbation of COPD with secondary shortness of breath, clinically improving Advanced COPD with an FEV1 of 35% at baseline, maintained on a combination of Spiriva and pro-air rescue inhaler medicines bases addition to albuterol updrafts Multiple irregular bilateral pulmonary nodules largest in the left upper lobe and the left midlung, highly concerning for metastatic cancer of a lung primary. CAT scan of the abdomen is negative. MRI of the brain is still in progress MDS with secondary pancytopenia History of smoking, [id number] and the patient quit smoking approximately year ago Plan The patient is clinically improving. We'll continue the same treatment for now with bronchodilators and steroids. We'll continue same antibiotic coverage Clinically improving. We'll treat the same for the next 24 hours Discussed the CAT scan results with the patient. The patient will need an ou tpatient PET CT following that a bronchoscopy with just monitor biopsies didn't establish tissue diagnosis with high concern of malignancy We'll continue to follow
[2021-12-04 13:00] LABS: Large Platelets Present
[2021-12-04] MEDS: ALPRAZolam 0.25 MG TAB PO PRN ×2 (13:08→21:17)
--- NOTE | 2021-12-04 13:45 | P.PN ---
Subjective Progress Note Date: 12/04/21 Principal diagnosis: MDS, pancytopenia In f/u today pt c/o SOB with exertion but denies difficulty breathing, she is ambulatory. She is tolerating oral intake. Denies bleeding Objective - Vital Signs Vital signs: Vital Signs Temp 97.5 F L 12/04/21 09:10 Pulse 104 H 12/04/21 11:14 Resp 18 12/04/21 09:10 BP 128/82 12/04/21 09:10 Pulse Ox 97 12/04/21 09:10 FiO2 32 12/03/21 19:40 Intake & Output 12/03/21 12/04/21 12/04/21 18:59 06:59 18:59 Intake Total 430 358 Balance 430 358 Intake: Oral 430 358 Other: Voiding Method Toilet Toilet # Voids 2 1 - Constitutional General appearance: Present: cooperative, no acute distress, obese - EENT Eyes: Present: anicteric sclerae, EOMI ENT: Present: hearing grossly normal - Respiratory Respiratory: bilateral: diminished - Cardiovascular Heart sounds: normal: S1, S2 - Peripheral edema leg Peripheral Edema: bilateral: Trace - Neurologic Neurologic: Present: CNII-XII intact - Musculoskeletal Musculoskeletal: Present: strength equal bilaterally - Psychiatric Psychiatric: Present: A&O x's 3, appropriate affect, intact judgment & insight - Labs CBC & Chem 7: 12/04/21 08:07 12/04/21 08:07 Labs: Abnormal Lab Results - Last 24 Hours (Table) 12/03/21 12/03/21 12/03/21 Range/Units 18:10 18:10 20:32 WBC (3.8-10.6) k/uL RBC (3.80-5.40) m/uL MCV (80.0-100.0) fL MCH (25.0-35.0) pg RDW (11.5-15.5) % Macrocytosis Retic Count 3.0 H (0.5-2.0) % Chloride (98-107) mmol/L Creatinine (0.52-1.04) mg/dL Glucose (74-99) mg/dL POC Glucose (mg/dL) 169 H (70-110) mg/dL Iron 19 L (50-170) ug/dL TIBC 221 L (228-460) ug/dL % Saturation 8.36 L (12.00-45.00) Transferrin 158.0 L (204.0-354.0) mg/dL Ferritin 590.0 H (10.0-291.0) ng/mL Total Protein (6.3-8.2) g/dL Albumin (3.5-5.0) g/dL Vitamin B12 >2000.0 H (200.0-944.0) pg/mL 12/04/21 12/04/21 12/04/21 Range/Units 06:17 08:07 08:07 WBC 3.1 L (3.8-10.6) k/uL RBC 3.26 L (3.80-5.40) m/uL MCV 111.6 H (80.0-100.0) fL MCH 35.9 H (25.0-35.0) pg RDW 19.7 H (11.5-15.5) % Macrocytosis Marked A Retic Count (0.5-2.0) % Chloride 108 H (98-107) mmol/L Creatinine 0.39 L (0.52-1.04) mg/dL Glucose 163 H (74-99) mg/dL POC Glucose (mg/dL) 140 H (70-110) mg/dL Iron (50-170) ug/dL TIBC (228-460) ug/dL % Saturation (12.00-45.00) Transferrin (204.0-354.0) mg/dL Ferritin (10.0-291.0) ng/mL Total Protein 6.2 L (6.3-8.2) g/dL Albumin 3.4 L (3.5-5.0) g/dL Vitamin B12 (200.0-944.0) pg/mL 12/04/21 Range/Units 11:52 WBC (3.8-10.6) k/uL RBC (3.80-5.40) m/uL MCV (80.0-100.0) fL MCH (25.0-35.0) pg RDW (11.5-15.5) % Macrocytosis Retic Count (0.5-2.0) % Chloride (98-107) mmol/L Creatinine (0.52-1.04) mg/dL Glucose (74-99) mg/dL POC Glucose (mg/dL) 122 H (70-110) mg/dL Iron (50-170) ug/dL TIBC (228-460) ug/dL % Saturation (12.00-45.00) Transferrin (204.0-354.0) mg/dL Ferritin (10.0-291.0) ng/mL Total Protein (6.3-8.2) g/dL Albumin (3.5-5.0) g/dL Vitamin B12 (200.0-944.0) pg/mL Microbiology - Last 24 Hours (Table) 12/02/21 22:15 Blood Culture - Preliminary Blood No Growth after 24 hours 12/02/21 22:00 Blood Culture - Preliminary Blood No Growth after 24 hours - Imaging and Cardiology CT scan - abdomen: report reviewed CT scan - pelvis: report reviewed Assessment and Plan (1) MDS (myelodysplastic syndrome), low grade Current Visit: Yes Status: Chronic Priority: Medium Code(s): D46.20 - REFRACTORY ANEMIA WITH EXCESS OF BLASTS, UNSPECIFIED SNOMED Code(s): 565427785 Plan: CBC stable today. Cont to monitor CBC while inpt. Anticipate counts to drop with acute illness. Current changes in her CBC are mild and not requiring intervention. Anemia work up pending. CT chest reports mult pulm densities. CT AP report reviewed, some f/u recomme nded but no definite lesion findings or findings to suggest metastatic tumor. Reviewed Pulm note and they are planning for PET outpt to assess the lung nodules. Based on PET pt Pulm will determine if pt needs biopsy. Primary Onc informed of pt condition, imaging findings and plan. F/U sched and in discharge plan.
[2021-12-04 16:35] LABS: Glucose,Whole Blood 130 mg/dL (70-110)
[2021-12-04 21:06] LABS: Glucose,Whole Blood 164 mg/dL (70-110)
[2021-12-05] MEDS: methylPREDNISolone SOD SUCCI 125 MG/2 ML VIAL IV SCH ×5 (00:02→22:41)
[2021-12-05] MEDS: HEPARIN SODIUM,PORCINE/PF 5,000 UNIT/0.5 ML SYRINGE SQ SCH ×3 (00:02→17:30)
--- NOTE | 2021-12-05 02:35 | P.CNNES ---
History of Present Illness Consult date: 12/04/21 Requesting physician: Jayashree Salinas Reason for Consult: Dizziness History of Present Illness: Patient is a 61-year-old female came to the hospital on 12/02/2021 for palpitations and arrhythmia. Patient has been diagnosed with acute exacerbation of COPD, multiple irregular bilateral pulmonary nodules. Patient also has pancytopenia related to MDS. Neurology was consulted for dizziness. Patient states that her first episode of dizziness or vertigo occurred in October 2021. She woke up one morning at 5 AM with dizziness. When she opened her eyes on waking up, everything was spinning. She sat up and felt nauseated and vomited. She also had some diarrhea, vomiting that day and the next day. Subsequently she developed positional vertigo, mainly when she would turn head, the room would spin. She slept in the recliner for 1 week, as she would get very dizzy on laying down flat in the bed. The symptoms went away in couple weeks. She was fine until 11/18/2021 when she again woke up that morning with v ertigo. She continues to have intermittent spinning, vomiting. Patient has noticed that the vertigo occurs when she first lays down in the bed, and it lasts for about 30-60 seconds. The vertigo recurs if she turns her head to the right or the left while she is laying down. Again, it lasts for about 30-60 seconds and then goes away. She denies dizziness or vertigo, when she bends down or look up, although she has not paid attention to dizziness if occurs on bending down or looking up. When she has vertigo, she is afraid to lay down because of the vertigo. If she stands up, she feels dizzy lightheaded but not vertigo. Patient denies hypertension or diabetes. She has smoked 1 pack per day since age 16. She has smoked for about 45 years. Patient quit smoking on 10/21/2020. Patient quit tobacco after she was diagnosed with severe COPD and MDS. Denies any alcohol use. She smoked marijuana when she was younger, but now she does it very occasionally. Patient also has problems with anxiety. Patient had an MRI of the brain with and without contrast performed on 12/03/2021, which revealed no evidence of intracranial mass or acute/subacute infarct. Nonspecific white matter changes, likely secondary to small vessel ischemic disease. I personally reviewed MRI and agree with the findings. 2-D echo revealed normal left ventricle systolic function, mild MR and mild TR. Blood tests shows WBC 3.1 hemoglobin 11.7, platelets 149. Chem-7 is normal. Hepatic panel normal. Patient's B12 is > 2000, folic acid 13.6 and normal MMA 0.20. TSH is slightly decreased 0.207. Free T4 1 0.38, but he is continue with the years. MTC, who year via use in the school He is no significant headaches. A #Aslan medical problem while the area. The left lower lip. He does feel was page or jugular cardiomegaly andl will MTC #on an EEG with wake Jeanna's are normal bilaterally with "many as visualized. The to repeat the seizures may generally MTC #on very gentle manual releases chair tests orsitting eases are spastic with a complaint to meningitis A.m. due to but reactive to be iatrogenic. It was particularly on her. Her headache preventative because of his IEP which revealed the Review of Systems Patient has tinnitus "once in a while". Denies any loss of hearing. No pain in the ears. No and he was on a 70. Patient has significant shortness of breath, wheezing. Denies any chest pain, no abdominal pain. She does have some nausea. No rash. Denies any double vision or loss of vision. All other review of systems reviewed are unremarkable. Past Medical History Past Medical History: Blood Disorder, COPD Additional Past Medical History / Comment(s): Pancytopenia, iron deficiency anemia, COPD, myelodysplastic syndrome History of Any Multi-Drug Resistant Organisms: None Reported Past Surgical History: No Surgical Hx Reported Additional Past Surgical History / Comment(s): tooth extraction, COLONOSCOPY Past Anesthesia/Blood Transfusion Reactions: No Reported Reaction Additional Past Anesthesia/Blood Transfusion Reaction / Comment(s): unknown family hx-pt is adopted Past Psychological History: Depression Smoking Status: Former smoker Past Alcohol Use History: None Reported Past Drug Use History: None Reported - Past Family History Father History Unknown: Yes Additional Family Medical History / Comment(s): unknown, adopted at Mother History Unknown: Yes Additional Family Medical History / Comment(s): unknown, adopted at Medications and Allergies Home Medications Medication Instructions Recorded Confirmed Type Albuterol Inhaler [Ventolin Hfa 2 puff INHALATION RT-Q6H PRN 08/08/20 12/02/21 History Inhaler] Tiotropium Fontana [Spiriva] 1 cap INHALATION RT-DAILY 01/22/21 12/02/21 History Ipratropium-Albuterol Nebulize 3 ml INHALATION RT-QID PRN 12/02/21 12/02/21 History [Duoneb 0.5 mg-3 mg/3 ml Soln] Allergies Allergy/AdvReac Type Severity Reaction Status Date / Time ferumoxytol Allergy Severe Rash/Hives Verified 12/02/21 17:43 Physical Examination - Vital Signs Vital Signs: Vital Signs Temp Pulse Pulse Pulse Pulse Pulse Resp 12/04/21 23:56 76 16 12/04/21 19:42 97.7 F 105 H 20 12/04/21 18:44 110 H 12/04/21 18:32 107 H 12/04/21 17:45 107 H 18 12/04/21 15:29 127 H 12/04/21 15:16 120 H 12/04/21 13:10 97.7 F 104 H 20 12/04/21 12:22 119 H 104 H 119 H 12/04/21 11:14 104 H 12/04/21 11:03 100 12/04/21 09:10 97.5 F L 61 18 12/04/21 07:35 120 H 12/04/21 07:21 116 H 12/04/21 03:17 97.5 F L 92 16 BP Pulse Ox Pulse Ox Pulse Ox Pulse Ox 12/04/21 23:56 106/70 99 12/04/21 19:42 131/73 98 12/04/21 18:44 12/04/21 18:32 12/04/21 17:45 136/81 97 12/04/21 15:29 12/04/21 15:16 12/04/21 13:10 129/74 94 L 12/04/21 12:22 94 L 90 L 87 L 12/04/21 11:14 12/04/21 11:03 12/04/21 09:10 128/82 97 12/04/21 07:35 12/04/21 07:21 12/04/21 03:17 131/79 97 Intake and Output 12/04/21 12/04/21 12/05/21 14:59 22:59 06:59 Intake Total 358 0 Balance 358 0 Intake: Oral 358 0 Other: Voiding Method Toilet Toilet # Voids 1 # Bowel Movements 1 Patient is a late middle aged female, in mild respiratory distress, has a oxygen by nasal cannula. Patient is alert awake oriented to time place and person. Speech and language functions are normal. Attention, concentration and fund of knowledge is adequate. On cranial examination, pupils are round and reacting to light, visual mccoy are full on confrontation, extraocular muscles are intact with no nystagmus. Face is symmetric, tongue protrudes to the midline. Palatal elevation and sensation normal, hearing is moderate to severely decreased for finger rubbing (L.R), but completely normal for usual conversation. Her shoulder shrug normal, facial sensation normal. On muscle strength testing, there is no pronator drift and the strength is normal in arms and legs distally and proximally. Her left shoulder was not checked because of pain. Deep tendon reflexes are symmetric, 2 at bilateral biceps and brachioradialis, 2 at both knees, 1+ to 2 and bilateral ankles and plantars are downgoing bilaterally. Sensory to touch is equal with no neglect. Cerebellar function showed no ataxia for [id number] testing. No dysdiadochokinesia. Tone and bulk of muscles normal. Gait not checked. On general examination, there is no carotid bruit or murmur, S1-S2 audible. Abdomen is soft nontender. No organomegaly, bowel sounds present. Chest is clear, but patient has wheezes bilaterally. Peripheral pulses are present. No edema. Results - Laboratory Findings CBC and BMP: 12/04/21 08:07 12/04/21 08:07 Abnormal Lab Findings: Abnormal Labs 12/02/21 12/02/21 12/02/21 16:44 16:44 17:07 WBC RBC 3.54 L MCV 108.8 H MCH 36.1 H RDW 19.6 H Plt Count Blast Cells % Lymphocytes # (Manual) 0.62 L Metamyelocytes # (Man) Blast Cells # (Man) Macrocytosis Marked A Retic Count APTT 20.1 L D-Dimer 2.26 H Sodium 132 L Chloride Creatinine 0.44 L Glucose 110 H POC Glucose (mg/dL) Calcium Iron TIBC % Saturation Transferrin Ferritin AST 39 H Lactate Dehydrogenase Total Protein Albumin Vitamin B12 Procalcitonin 12/03/21 12/03/21 12/03/21 08:01 08:01 08:01 WBC 3.6 L RBC 3.25 L MCV 112.8 H MCH 35.6 H RDW 19.3 H Plt Count 135 L Blast Cells % 2 H* Lymphocytes # (Manual) 0.83 L Metamyelocytes # (Man) 0.04 H Blast Cells # (Man) 0.07 H Macrocytosis Marked A Retic Count APTT D-Dimer Sodium Chloride Creatinine 0.50 L Glucose 102 H POC Glucose (mg/dL) Calcium 8.3 L Iron TIBC % Saturation Transferrin Ferritin AST Lactate Dehydrogenase 905 H Total Protein Albumin Vitamin B12 Procalcitonin 0.17 H 12/03/21 12/03/21 12/03/21 18:10 18:10 20:32 WBC RBC MCV MCH RDW Plt Count Blast Cells % Lymphocytes # (Manual) Metamyelocytes # (Man) Blast Cells # (Man) Macrocytosis Retic Count 3.0 H APTT D-Dimer Sodium Chloride Creatinine Glucose POC Glucose (mg/dL) 169 H Calcium Iron 19 L TIBC 221 L % Saturation 8.36 L Transferrin 158.0 L Ferritin 590.0 H AST Lactate Dehydrogenase Total Protein Albumin Vitamin B12 >2000.0 H Procalcitonin 12/04/21 12/04/21 12/04/21 06:17 08:07 08:07 WBC 3.1 L RBC 3.26 L MCV 111.6 H MCH 35.9 H RDW 19.7 H Plt Count 149 L Blast Cells % 1 H* Lymphocytes # (Manual) 0.31 L Metamyelocytes # (Man) Blast Cells # (Man) 0.03 H Macrocytosis Marked A Retic Count APTT D-Dimer Sodium Chloride 108 H Creatinine 0.39 L Glucose 163 H POC Glucose (mg/dL) 140 H Calcium Iron TIBC % Saturation Transferrin Ferritin AST Lactate Dehydrogenase Total Protein 6.2 L Albumin 3.4 L Vitamin B12 Procalcitonin 12/04/21 12/04/21 12/04/21 11:52 16:34 20:51 WBC RBC MCV MCH RDW Plt Count Blast Cells % Lymphocytes # (Manual) Metamyelocytes # (Man) Blast Cells # (Man) Macrocytosis Retic Count APTT D-Dimer Sodium Chloride Creatinine Glucose POC Glucose (mg/dL) 122 H 130 H 164 H Calcium Iron TIBC % Saturation Transferrin Ferritin AST Lactate Dehydrogenase Total Protein Albumin Vitamin B12 Procalcitonin Assessment and Plan Assessment: * Probable benign positional peripheral vertigo. * COPD exacerbation * Myelodysplastic syndrome. * X tobacco use Plan: * Patient states her vertigo has almost resolved at this time. * She may use Antivert as needed for vertigo, if it recurs. * If the symptoms persist, would suggest outpatient vestibular rehabilitation. * No other neurological workup indicated. Neurology will sign off. Please reconsult if any concerns. * Thank you for the consult.
[2021-12-05] MEDS: SODIUM CHLORIDE 0.9% 1,000 ML IV SCH ×2 (03:21→17:35)
[2021-12-05 06:20] LABS: Glucose,Whole Blood 154 mg/dL (70-110)
[2021-12-05] MEDS: INSULIN ASPART (NovoLOG) 100 UNIT/ML VIAL SQ SCH ×4 (06:25→20:50)
[2021-12-05] MEDS: IPRATROPIUM 0.5 MG/2.5 ML NEBU INHALATION SCH ×4 (08:24→20:01)
[2021-12-05] MEDS: ALPRAZolam 0.25 MG TAB PO PRN ×2 (08:38→22:41)
[2021-12-05 09:20] LABS: Anisocytosis Moderate; HCT 32.2 % (34.0-46.0); HGB 10.1 gm/dL (11.4-16.0); Hypochromasia Moderate; MCH 35.4 pg (25.0-35.0); MCHC 31.4 g/dL (31.0-37.0); MCV 112.7 fL (80.0-100.0); Macrocytosis Marked; Mean Platelet Volume 14.5; Poikilocytosis Slight; RBC 2.85 m/uL (3.80-5.40)
[2021-12-05 09:21] LABS: ALT 14 U/L (4-34); AST 17 U/L (14-36); African American GFR (CKD) >90 (>60 ml/min/1.73 sqM); Albumin 2.8 g/dL (3.5-5.0); Alkaline Phosphatase 62 U/L (38-126); Anion Gap 3 mmol/L; Blood Urea Nitrogen 11 mg/dL (7-17); Calcium 8.3 mg/dL (8.4-10.2); Carbon Dioxide 24 mmol/L (22-30); Chloride 110 mmol/L (98-107); Glucose 123 mg/dL (74-99); Magnesium 2.2 mg/dL (1.6-2.3); Non-African American GFR(CKD) >90 (>60 ml/min/1.73 sqM); Potassium 4.1 mmol/L (3.5-5.1); Sodium 137 mmol/L (137-145); Total Bilirubin 0.1 mg/dL (0.2-1.3); Total Protein 5.3 g/dL (6.3-8.2)
[2021-12-05] MEDS: AZITHROMYCIN 500 MG in SODIUM CHLORIDE 0.9% 250 ML IVPB SCH (10:29)
[2021-12-05 10:45] LABS: Band Neutrophils % 2 %; Eosinophils # (M) 0.04 k/uL (0-0.7); Lymphocytes # (M) 0.28 k/uL (1.0-4.8); Monocytes # (M) 0.24 k/uL (0-1.0); Neutrophils % (M) 84 %; Nucleated Red Blood Cells 0 /100 WBC (0-0); Total Cells Counted 100
[2021-12-05 10:47] LABS: Mixed Population RBC Present; Polychromasia Present
[2021-12-05 10:49] LABS: Large Platelets Present; Platelet Count 138 k/uL (150-450)
--- NOTE | 2021-12-05 11:07 | P.PN ---
Subjective Progress Note Date: 12/05/21 This is a 60-year-old female patient with known history of advanced COPD with an FEV1 of 35% of predicted at baseline. The patient and on a combination of Spiriva and Proair and albuterol nebulizers on an as needed basis the patient is known to have also myelodysplasia. The patient has pancytopenia and the patient's been followed up by hematology oncology. The patient presents to the hospital because of worsening shortness of breath. Her last hospitalization for COPD exacerbation was in February 2021 and at that time the patient was seen and sedation was given a CAT scan of the chest that showed a crit patchy peripheral pulmonary infiltrates largest in the left upper lobe. During this current admission, the patient is coming in for the same essentially having wor sening shortness of breath. The patient initially went to her doctor's office and she was noted to be having some tachycardia and hypoxemia and was recommended for this patient to come in to the hospital. No fever. No chills. No significant sputum production. In the emergency department, the patient was evaluated and the viral panel was negative. The patient was given a chest x-ray and following that the patient was given a CAT scan of the chest and the findings were quite abnormal as the patient was found to have multiple irregular masses in the lungs largest in the left upper lobe measuring around 2.6 x 2.0 cm in size and another one measuring 2.9 x 1.8 cm in size and several other p ulmonary nodules and regular densities throughout the bilateral lung mccoy and the findings are highly suspicious for metastatic disease. No evidence of any acute pulmonary embolism. In comparison to the earlier CAT scan from last year, things have progressed significantly and those are obviously new findings. The patient denies having any significant Discharge symptoms. No hemoptysis. No pl eurisy. No previous history of malignancy. She has [id number] smoking history and she quit smoking in January 2021. Her echocardiogram showed a normal LV function without any significant valvular abnormalities. She describes that she was being unsteady and for that reason an MRI of the brain was also noted. As for the CAT scan of the abdomen and pelvis, showed no evidence of any suspicious lesions or lymphadenopathy within the abdomen or pelvis. There was a 2 cm right ovarian cyst, an incidental finding and there was also left hepatic cyst. On today's evaluation of 12/04/2021, the patient sitting better. She is less short of breath and bronchospastic and wheezy yesterday. Concerned about the possibility of having malignancy. This is not certain and the patient will need to have outpatient workup regarding this possibility including a CAT scan and subsequent biopsies if needed. For now, the patient is doing well she is calm and comfortable. She remains on bronchodilators patient remains on examination Rocephin and Zithromax. She remains on IV Solu-Medrol. No other significant events over the past 24 hours. 12/05/2021, the patient is feeling well. No specific complaints for now. Less short of breath compared to yesterday. Less bronchospastic. Less wheezy. Ambu lating. Remains on IV Solu-Medrol. Remains on IV Rocephin. Remains on DuoNeb nebulized treatments around the clock. Blood work shows a white cell count of 4 with a hemoglobin of 10.1 and a BUN of 11 with a creatinine 0.39 and a sodium level of 137. Objective - Vital Signs Vital signs: Vital Signs Temp 97.2 F L 12/05/21 03:19 Pulse 70 12/05/21 03:19 Resp 16 12/05/21 03:19 BP 111/64 12/05/21 03:19 Pulse Ox 99 12/05/21 03:19 FiO2 32 12/03/21 19:40 Intake & Output 12/04/21 12/05/21 12/05/21 18:59 06:59 18:59 Intake Total 358 0 Balance 358 0 Intake: Oral 358 0 Other: Voiding Method Toilet Toilet # Voids 1 3 # Bowel Movements 1 0 - Exam GENERAL EXAM: Alert, very pleasant, 60-year-old white female, on 3 L of nasal cannula with a pulse ox of 96% HEAD: Normocephalic/atraumatic. EYES: Normal reaction of pupils, equal size. Conjunctiva pink, sclera white. NOSE: Clear with pink turbinates. THROAT: No erythema or exudates. NECK: No masses, no JVD, no thyroid enlargement, no adenopathy. CHEST: No chest wall deformity. Symmetrical expansion. LUNGS: Equal air entry with diminished breath sounds, some limited rales at the bases. CVS: Regular rate and rhythm, normal S1 and S2, no gallops, no murmurs, no rubs ABDOMEN: Soft, nontender. No hepatosplenomegaly, normal bowel sounds, no guarding or rigidity. EXTREMITIES: No clubbing, no edema, no cyanosis, 2+ pulses and upper and lower extremities. MUSCULOSKELETAL: Muscle strength and tone normal. SPINE: No scoliosis or deformity SKIN: No rashes CENTRAL NERVOUS SYSTEM: Alert and oriented -3. No focal deficits, tone is normal in all 4 extremities. PSYCHIATRIC: Alert and oriented -3. Appropriate affect. Intact judgment and insight. - Labs CBC & Chem 7: 12/05/21 08:16 12/05/21 08:16 Labs: Abnormal Lab Results - Last 24 Hours (Table) 12/04/21 12/04/21 12/04/21 Range/Units 08:07 11:52 16:34 RBC (3.80-5.40) m/uL Hgb (11.4-16.0) gm/dL Hct (34.0-46.0) % MCV (80.0-100.0) fL MCH (25.0-35.0) pg RDW (11.5-15.5) % Plt Count 149 L (150-450) k/uL Blast Cells % 1 H* % Lymphocytes # (Manual) 0.31 L (1.0-4.8) k/uL Blast Cells # (Man) 0.03 H (0) k/uL Macrocytosis Chloride (98-107) mmol/L Creatinine (0.52-1.04) mg/dL Glucose (74-99) mg/dL POC Glucose (mg/dL) 122 H 130 H (70-110) mg/dL Calcium (8.4-10.2) mg/dL Total Bilirubin (0.2-1.3) mg/dL Total Protein (6.3-8.2) g/dL Albumin (3.5-5.0) g/dL 12/04/21 12/05/21 12/05/21 Range/Units 20:51 05:55 08:16 RBC 2.85 L (3.80-5.40) m/uL Hgb 10.1 L (11.4-16.0) gm/dL Hct 32.2 L (34.0-46.0) % MCV 112.7 H (80.0-100.0) fL MCH 35.4 H (25.0-35.0) pg RDW 20.0 H (11.5-15.5) % Plt Count (150-450) k/uL Blast Cells % % Lymphocytes # (Manual) (1.0-4.8) k/uL Blast Cells # (Man) (0) k/uL Macrocytosis Marked A Chloride (98-107) mmol/L Creatinine (0.52-1.04) mg/dL Glucose (74-99) mg/dL POC Glucose (mg/dL) 164 H 154 H (70-110) mg/dL Calcium (8.4-10.2) mg/dL Total Bilirubin (0.2-1.3) mg/dL Total Protein (6.3-8.2) g/dL Albumin (3.5-5.0) g/dL 12/05/21 Range/Units 08:16 RBC (3.80-5.40) m/uL Hgb (11.4-16.0) gm/dL Hct (34.0-46.0) % MCV (80.0-100.0) fL MCH (25.0-35.0) pg RDW (11.5-15.5) % Plt Count (150-450) k/uL Blast Cells % % Lymphocytes # (Manual) (1.0-4.8) k/uL Blast Cells # (Man) (0) k/uL Macrocytosis Chloride 110 H (98-107) mmol/L Creatinine 0.39 L (0.52-1.04) mg/dL Glucose 123 H (74-99) mg/dL POC Glucose (mg/dL) (70-110) mg/dL Calcium 8.3 L (8.4-10.2) mg/dL Total Bilirubin 0.1 L (0.2-1.3) mg/dL Total Protein 5.3 L (6.3-8.2) g/dL Albumin 2.8 L (3.5-5.0) g/dL Microbiology - Last 24 Hours (Table) 12/02/21 22:15 Blood Culture - Preliminary Blood No Growth after 48 hours 12/02/21 22:00 Blood Culture - Preliminary Blood No Growth after 48 hours Assessment and Plan Plan: Acute exacerbation of COPD with secondary shortness of breath, clinically impro ving Advanced COPD with an FEV1 of 35% at baseline, maintained on a combination of Spiriva and pro-air rescue inhaler medicines bases addition to albuterol updrafts Multiple irregular bilateral pulmonary nodules largest in the left upper lobe and the left midlung, highly concerning for metastatic cancer of a lung primary. CAT scan of the abdomen is negative. MRI of the brain is showing no metastases MDS with secondary pancytopenia History of smoking, [id number] and the patient quit smoking approximately year ago Plan The patient is clinically improving. We'll continue the same treatment for now with bronchodilators and steroids. We'll continue same antibiotic coverage Clinically improving. Continued IV Solu Medrol and taper the patient prednisone burst taper as of tomorrow with a potential discharge within the next 24 hours.
[2021-12-05 11:37] LABS: Glucose,Whole Blood 299 mg/dL (70-110)
[2021-12-05 13:52] LABS: Methylmalonic Acid 0.18 umol/L (<0.40)
--- NOTE | 2021-12-05 14:28 | P.PN ---
Subjective Progress Note Date: 12/05/21 Pt reports improvement in breathing. She has anxiety regarding the possibility of cancer in her lungs. Gen: awake, alert HEENT: normocephalic, atraumatic, good hearing acuity, moist mucous membranes Resp: good air exchange, breathing comfortably with no accessory muscle use, diffuse wheezing CVS: good distal perfusion x 4, regular rate and rhythm without murmurs GI: soft, NTTP, ND : no SPT, no CVAT, genao catheter not present MSK: no pitting edema, no clubbing Neuro: non-focal, moving all extremities Psych: cooperative, euthymic mood Assessment/plan: Diffuse multifocal community acquired pneumonia versus metastatic disease Episodes of vertigo Elevated d-dimer COPD exacerbation Myelodysplastic syndrome CT angios the chest negative for acute PE, showed multiple extensive irregular densities bilaterally in the lungs Check blood cultures, NGTD Check urine Legionella, negative Patient initiated on azithromycin and Rocephin Supplemental oxygen as needed Monitor vital signs Pulmonary consult and oncology consult Continue with DuoNeb's when necessary as needed IV steroids Baseline white count is leukopenic Mild hyponatremia IV fluid hydration with normal saline Monitor sodium Heparin subcu 3 times a day for DVT prophylaxis Full code Objective - Vital Signs Vital signs: Vital Signs Temp 97.8 F 12/05/21 12:07 Pulse 82 12/05/21 12:07 Resp 16 12/05/21 12:07 BP 105/58 12/05/21 12:07 Pulse Ox 97 12/05/21 12:07 FiO2 32 12/03/21 19:40 Intake & Output 12/04/21 12/05/21 12/05/21 18:59 06:59 18:59 Intake Total 358 0 Balance 358 0 Intake: Oral 358 0 Other: Voiding Method Toilet Toilet # Voids 1 3 1 # Bowel Movements 1 0 - Labs CBC & Chem 7: 12/05/21 08:16 12/05/21 08:16 Labs: Abnormal Lab Results - Last 24 Hours (Table) 12/04/21 12/04/21 12/05/21 Range/Units 16:34 20:51 05:55 RBC (3.80-5.40) m/uL Hgb (11.4-16.0) gm/dL Hct (34.0-46.0) % MCV (80.0-100.0) fL MCH (25.0-35.0) pg RDW (11.5-15.5) % Plt Count (150-450) k/uL Lymphocytes # (Manual) (1.0-4.8) k/uL Macrocytosis Chloride (98-107) mmol/L Creatinine (0.52-1.04) mg/dL Glucose (74-99) mg/dL POC Glucose (mg/dL) 130 H 164 H 154 H (70-110) mg/dL Calcium (8.4-10.2) mg/dL Total Bilirubin (0.2-1.3) mg/dL Total Protein (6.3-8.2) g/dL Albumin (3.5-5.0) g/dL 12/05/21 12/05/21 12/05/21 Range/Units 08:16 08:16 11:30 RBC 2.85 L (3.80-5.40) m/uL Hgb 10.1 L (11.4-16.0) gm/dL Hct 32.2 L (34.0-46.0) % MCV 112.7 H (80.0-100.0) fL MCH 35.4 H (25.0-35.0) pg RDW 20.0 H (11.5-15.5) % Plt Count 138 L (150-450) k/uL Lymphocytes # (Manual) 0.28 L (1.0-4.8) k/uL Macrocytosis Marked A Chloride 110 H (98-107) mmol/L Creatinine 0.39 L (0.52-1.04) mg/dL Glucose 123 H (74-99) mg/dL POC Glucose (mg/dL) 299 H (70-110) mg/dL Calcium 8.3 L (8.4-10.2) mg/dL Total Bilirubin 0.1 L (0.2-1.3) mg/dL Total Protein 5.3 L (6.3-8.2) g/dL Albumin 2.8 L (3.5-5.0) g/dL Microbiology - Last 24 Hours (Table) 12/02/21 22:15 Blood Culture - Preliminary Blood No Growth after 48 hours 12/02/21 22:00 Blood Culture - Preliminary Blood No Growth after 48 hours
[2021-12-05 16:52] LABS: Glucose,Whole Blood 127 mg/dL (70-110)
[2021-12-05 20:14] LABS: Glucose,Whole Blood 120 mg/dL (70-110)
[2021-12-06] MEDS: HEPARIN SODIUM,PORCINE/PF 5,000 UNIT/0.5 ML SYRINGE SQ SCH ×2 (01:31→09:27)
[2021-12-06] MEDS: SODIUM CHLORIDE 0.9% 1,000 ML IV SCH (06:12)
[2021-12-06 06:16] LABS: Glucose,Whole Blood 134 mg/dL (70-110)
[2021-12-06] MEDS: methylPREDNISolone SOD SUCCI 125 MG/2 ML VIAL IV SCH (06:26)
[2021-12-06] MEDS: INSULIN ASPART (NovoLOG) 100 UNIT/ML VIAL SQ SCH ×2 (06:27→11:53)
[2021-12-06] MEDS: IPRATROPIUM 0.5 MG/2.5 ML NEBU INHALATION SCH ×3 (07:30→14:54)
[2021-12-06] MEDS: IPRATROPIUM-ALBUTEROL 3 ML NEB INHALATION PRN ×2 (07:30→11:09)
[2021-12-06 09:22] LABS: Anisocytosis Moderate; Basophils # (A) 0.1 k/uL (0-0.2); Basophils % (A) 2 %; Eosinophils # (A) 0.1 k/uL (0-0.7); Eosinophils % (A) 2 %; HCT 34.3 % (34.0-46.0); HGB 11.2 gm/dL (11.4-16.0); Hypochromasia Slight; Lymphocytes # (A) 0.5 k/uL (1.0-4.8); Lymphocytes % (A) 14 %; MCHC 32.5 g/dL (31.0-37.0); MCV 110.8 fL (80.0-100.0); Mean Platelet Volume 14.4; Monocytes # (A) 0.1 k/uL (0-1.0); Monocytes % (A) 3 %; Neutrophils # (A) 2.9 k/uL (1.3-7.7); Neutrophils % (A) 79 %; Poikilocytosis Slight; RDW 20.2 % (11.5-15.5); WBC 3.6 k/uL (3.8-10.6)
[2021-12-06 09:33] LABS: ALT 17 U/L (4-34); AST 23 U/L (14-36); African American GFR (CKD) >90 (>60 ml/min/1.73 sqM); Albumin 3.4 g/dL (3.5-5.0); Alkaline Phosphatase 63 U/L (38-126); Anion Gap 11 mmol/L; Blood Urea Nitrogen 12 mg/dL (7-17); Calcium 8.8 mg/dL (8.4-10.2); Carbon Dioxide 21 mmol/L (22-30); Chloride 110 mmol/L (98-107); Glucose 167 mg/dL (74-99); Magnesium 2.2 mg/dL (1.6-2.3); Non-African American GFR(CKD) >90 (>60 ml/min/1.73 sqM); Potassium 4.3 mmol/L (3.5-5.1); Sodium 142 mmol/L (137-145); Total Bilirubin 0.5 mg/dL (0.2-1.3)
[2021-12-06 09:58] LABS: Platelet Count 134 k/uL (150-450); Polychromasia Present
[2021-12-06 09:59] LABS: Macrocytosis Marked
[2021-12-06] MEDS ORDERED: predniSONE 20 MG TAB PO SCH (10:15)
--- NOTE | 2021-12-06 11:28 | P.PN ---
Subjective Progress Note Date: 12/06/21 This is a 60-year-old female patient with known history of advanced COPD with an FEV1 of 35% of predicted at baseline. The patient and on a combination of Spiriva and Proair and albuterol nebulizers on an as needed basis the patient is known to have also myelodysplasia. The patient has pancytopenia and the patient's been followed up by hematology oncology. The patient presents to the hospital because of worsening shortness of breath. Her last hospitalization for COPD exacerbation was in February 2021 and at that time the patient was seen and sedation was given a CAT scan of the chest that showed a crit patchy peripheral pulmonary infiltrates largest in the left upper lobe. During this current admission, the patient is coming in for the same essentially having wor sening shortness of breath. The patient initially went to her doctor's office and she was noted to be having some tachycardia and hypoxemia and was recommended for this patient to come in to the hospital. No fever. No chills. No significant sputum production. In the emergency department, the patient was evaluated and the viral panel was negative. The patient was given a chest x-ray and following that the patient was given a CAT scan of the chest and the findings were quite abnormal as the patient was found to have multiple irregular masses in the lungs largest in the left upper lobe measuring around 2.6 x 2.0 cm in size and another one measuring 2.9 x 1.8 cm in size and several other p ulmonary nodules and regular densities throughout the bilateral lung mccoy and the findings are highly suspicious for metastatic disease. No evidence of any acute pulmonary embolism. In comparison to the earlier CAT scan from last year, things have progressed significantly and those are obviously new findings. The patient denies having any significant Discharge symptoms. No hemoptysis. No pl eurisy. No previous history of malignancy. She has [id number] smoking history and she quit smoking in January 2021. Her echocardiogram showed a normal LV function without any significant valvular abnormalities. She describes that she was being unsteady and for that reason an MRI of the brain was also noted. As for the CAT scan of the abdomen and pelvis, showed no evidence of any suspicious lesions or lymphadenopathy within the abdomen or pelvis. There was a 2 cm right ovarian cyst, an incidental finding and there was also left hepatic cyst. On today's evaluation of 12/04/2021, the patient sitting better. She is less short of breath and bronchospastic and wheezy yesterday. Concerned about the possibility of having malignancy. This is not certain and the patient will need to have outpatient workup regarding this possibility including a CAT scan and subsequent biopsies if needed. For now, the patient is doing well she is calm and comfortable. She remains on bronchodilators patient remains on examination Rocephin and Zithromax. She remains on IV Solu-Medrol. No other significant events over the past 24 hours. 12/05/2021, the patient is feeling well. No specific complaints for now. Less short of breath compared to yesterday. Less bronchospastic. Less wheezy. Ambu lating. Remains on IV Solu-Medrol. Remains on IV Rocephin. Remains on DuoNeb nebulized treatments around the clock. Blood work shows a white cell count of 4 with a hemoglobin of 10.1 and a BUN of 11 with a creatinine 0.39 and a sodium level of 137. 12/06/2021, the patient is doing well. No new complaints. Acute COPD exacerbation is improved. The patient will be taken off the IV Solu-Medrol started in a prednisone burst taper. No nausea vomiting diarrhea or abdominal pain. No chest pain. No other complaints Objective - Vital Signs Vital signs: Vital Signs Temp 97.6 F 12/06/21 10:22 Pulse 78 12/06/21 11:20 Resp 18 12/06/21 11:20 BP 125/66 12/06/21 10:22 Pulse Ox 94 L 12/06/21 10:22 FiO2 32 12/03/21 19:40 Intake & Output 12/05/21 12/06/21 12/06/21 18:59 06:59 18:59 Intake Total 598 476 Balance 598 476 Intake: Oral 598 476 Other: # Voids 1 2 - Exam GENERAL EXAM: Alert, very pleasant, 60-year-old white female, on 3 L of nasal cannula with a pulse ox of 96% HEAD: Normocephalic/atraumatic. EYES: Normal reaction of pupils, equal size. Conjunctiva pink, sclera white. NOSE: Clear with pink turbinates. THROAT: No erythema or exudates. NECK: No masses, no JVD, no thyroid enlargement, no adenopathy. CHEST: No chest wall deformity. Symmetrical expansion. LUNGS: Equal air entry with diminished breath sounds, some limited rales at the bases. CVS: Regular rate and rhythm, normal S1 and S2, no gallops, no murmurs, no rubs ABDOMEN: Soft, nontender. No hepatosplenomegaly, normal bowel sounds, no guarding or rigidity. EXTREMITIES: No clubbing, no edema, no cyanosis, 2+ pulses and upper and lower extremities. MUSCULOSKELETAL: Muscle strength and tone normal. SPINE: No scoliosis or deformity SKIN: No rashes CENTRAL NERVOUS SYSTEM: Alert and oriented -3. No focal deficits, tone is norm al in all 4 extremities. PSYCHIATRIC: Alert and oriented -3. Appropriate affect. Intact judgment and insight. - Labs CBC & Chem 7: 12/06/21 09:03 12/06/21 09:03 Labs: Abnormal Lab Results - Last 24 Hours (Table) 12/05/21 12/05/21 12/05/21 Range/Units 11:30 16:49 20:05 WBC (3.8-10.6) k/uL RBC (3.80-5.40) m/uL Hgb (11.4-16.0) gm/dL MCV (80.0-100.0) fL MCH (25.0-35.0) pg RDW (11.5-15.5) % Plt Count (150-450) k/uL Lymphocytes # (1.0-4.8) k/uL Macrocytosis Chloride (98-107) mmol/L Carbon Dioxide (22-30) mmol/L Creatinine (0.52-1.04) mg/dL Glucose (74-99) mg/dL POC Glucose (mg/dL) 299 H 127 H 120 H (70-110) mg/dL Total Protein (6.3-8.2) g/dL Albumin (3.5-5.0) g/dL 12/06/21 12/06/21 12/06/21 Range/Units 06:13 09:03 09:03 WBC 3.6 L (3.8-10.6) k/uL RBC 3.10 L (3.80-5.40) m/uL Hgb 11.2 L (11.4-16.0) gm/dL MCV 110.8 H (80.0-100.0) fL MCH 36.0 H (25.0-35.0) pg RDW 20.2 H (11.5-15.5) % Plt Count 134 L (150-450) k/uL Lymphocytes # 0.5 L (1.0-4.8) k/uL Macrocytosis Marked A Chloride 110 H (98-107) mmol/L Carbon Dioxide 21 L (22-30) mmol/L Creatinine 0.43 L (0.52-1.04) mg/dL Glucose 167 H (74-99) mg/dL POC Glucose (mg/dL) 134 H (70-110) mg/dL Total Protein 6.0 L (6.3-8.2) g/dL Albumin 3.4 L (3.5-5.0) g/dL Microbiology - Last 24 Hours (Table) 12/02/21 22:15 Blood Culture - Preliminary Blood No Growth after 72 hours 12/02/21 22:00 Blood Culture - Preliminary Blood No Growth after 72 hours Assessment and Plan Plan: Acute exacerbation of COPD with secondary shortness of breath, clinically improving Advanced COPD with an FEV1 of 35% at baseline, maintained on a combination of Spiriva and pro-air rescue inhaler medicines bases addition to albuterol updrafts Multiple irregular bilateral pulmonary nodules largest in the left upper lobe and the left midlung, highly concerning for metastatic cancer of a lung primary. CAT scan of the abdomen is negative. MRI of the brain is showing no metastases MDS with secondary pancytopenia History of smoking, [id number] and the patient quit smoking approximately year ago Plan Clinically improved Stop IV Solu-Medrol Prednisone burst taper Spiriva once a day PET scan on outpatient basis Discharge home today
[2021-12-06 12:00] VITALS: BP 129/69; PULSE 95; RESP 20; TEMP 97.9
[2021-12-06 12:00] LABS: Glucose,Whole Blood 132 mg/dL (70-110)
--- NOTE | 2021-12-06 14:20 | P.DS ---
Providers Date of admission: 12/02/21 20:06 Expected date of discharge: 12/06/21 Attending physician: Jon Gallagher MD Consults: 12/02/21 20:06 Consult Physician Routine Consulting Provider: Celio Briceno Consult Reason/Comments: MDS, pulmonary nodules Do you want consulting provider notified?: Yes 12/03/21 03:09 Consult Physician Routine Consulting Provider: Carlos Arcos Consult Reason/Comments: multiple pulmonary densities will need f/u op, pneumonia Do you want consulting provider notified?: Yes, Notify in am 12/03/21 12:10 Consult Physician Routine Consulting Provider: Efrain Copeland Consult Reason/Comments: dizziness Do you want consulting provider notified?: Yes Primary care physician: Saroj Vides MD Hospital Course: COPD exacerbation Episodes of vertigo Multiple lung masses Myelodysplastic syndrome 61 year old woman with history of COPD, MDS presented with dyspnea. In the ER, she was found to be afebrile, 115.67, HR 124, 92% on room air. CBC was unremarkable. Chemistries showed Na of 132, otherwise unremarkable. LFTs showed mild AST elevation, otherwise unremarkable. Coags were unremarkable. D- Dimer was elevated at 2.26. COVID, Flu A/B were negative. CXR showed nonspecific patchy infiltrates of left midlung. CTA of the chest was negative for PE, but showed multifocal patchy infiltrates concerning for multifocal pneumonia versus metastatic disease, as well as an irregular masses in the left lung mccoy of 2.6cm, 2.9cm, and 3.3cm. EKG showed sinus tachycardia. Pulmonology, neurology, cardiology, oncology were consulted. Echocardiogram demonstrated normal LV systolic function with mild mitral regurgitation, no wall motion abnormality. Abdomen/pelvis CT did not demonstrate any suspicious lesions or lymphadenopathy. Brain MRI was negative for intracranial masses or acute/subacute infarcts. Patient's dyspnea on exertion was felt to be related to COPD exacerbation and patient was treated with steroids as well as ne bulizers. Her dyspnea improved and she returned to her baseline of the day of discharge. Patient was recommended to follow-up with pulmonary medicine as well as oncology in order to schedule a PET computed tomography scan, followed by bronchoscopy for tissue sample related to her masses in her chest. I spent 32 minutes coordinating this complex discharge Gen: awake, alert HEENT: normocephalic, atraumatic, good hearing acuity, moist mucous membranes Resp: good air exchange, breathing comfortably with no accessory muscle use, diffuse wheezing CVS: good distal perfusion x 4, regular rate and rhythm without murmurs GI: soft, NTTP, ND : no SPT, no CVAT, genao catheter not present MSK: no pitting edema, no clubbing Neuro: non-focal, moving all extremities Psych: cooperative, euthymic mood Patient Condition at Discharge: Good Plan - Discharge Summary Discharge Rx Participant: No New Discharge Prescriptions: New Cefdinir [Omnicef] 300 mg PO Q12HR #2 capsule predniSONE [Deltasone] 40 mg PO DAILY 2 Days #4 tab Continue Albuterol Inhaler [Ventolin Hfa Inhaler] 2 puff INHALATION RT-Q6H PRN PRN Reason: Shortness Of Breath Tiotropium Hennessey [Spiriva] 1 cap INHALATION RT-DAILY Ipratropium-Albuterol Nebulize [Duoneb 0.5 mg-3 mg/3 ml Soln] 3 ml INHALATION RT-QID PRN PRN Reason: Shortness Of Breath Discharge Medication List Albuterol Inhaler [Ventolin Hfa Inhaler] 2 puff INHALATION RT-Q6H PRN 08/08/20 [History] Tiotropium Hennessey [Spiriva] 1 cap INHALATION RT-DAILY 01/22/21 [History] Ipratropium-Albuterol Nebulize [Duoneb 0.5 mg-3 mg/3 ml Soln] 3 ml INHALATION RT-QID PRN 12/02/21 [History] Cefdinir [Omnicef] 300 mg PO Q12HR #2 capsule 12/06/21 [Rx] predniSONE [Deltasone] 40 mg PO DAILY 2 Days #4 tab 12/06/21 [Rx] Follow up Appointment(s)/Referral(s): Saroj Vides MD [Primary Care Provider] - 1-2 days Toby Pathak MD [STAFF PHYSICIAN] - 01/15/22 2:30 pm Discharge/Stand Alone Forms: Community Resources, Personal Sign Builder Supervisor
== END 2021-12-06 16:39 | disposition home or self-care (01) | DRG 190 ==
LOC: EC 15:43 → 3SCARD 20:06
PROVIDERS: ADMIT Internal Medicine; ATTEND Internal Medicine
DX: J44.1 Chronic obstructive pulmonary disease with (acute) exacerbation (principal); J18.9 Pneumonia, unspecified organism; D61.818 Other pancytopenia; E87.1 Hypo-osmolality and hyponatremia; J44.0 Chronic obstructive pulmonary disease with (acute) lower respiratory infection; R91.8 Other nonspecific abnormal finding of lung field; D46.9 Myelodysplastic syndrome, unspecified; F32.A Depression, unspecified; F41.9 Anxiety disorder, unspecified; H81.10 Benign paroxysmal vertigo, unspecified ear; N83.201 Unspecified ovarian cyst, right side; K76.89 Other specified diseases of liver; R74.01 Elevation of levels of liver transaminase levels; R79.1 Abnormal coagulation profile; R00.0 Tachycardia, unspecified; D50.9 Iron deficiency anemia, unspecified; I08.1 Rheumatic disorders of both mitral and tricuspid valves; D46.20 Refractory anemia with excess of blasts, unspecified; R06.03 Acute respiratory distress; R26.81 Unsteadiness on feet; Z20.822 Contact with and (suspected) exposure to COVID-19; Z87.891 Personal history of nicotine dependence; Z86.010 Personal history of colon polyps; Z79.899 Other long term (current) drug therapy; Z88.8 Allergy status to other drugs, medicaments and biological substances
CPT/HCPCS: 36415; 70553; 71046; 71275; 74177; 80048; 80053; 82607; 82728; 82747; 83540; 83550; 83615; 83735; 83921; 84145; 84484; 85025; 85045; 85379; 85610; 85730; 87040; 87449; 87502; 87635; 93005; 93306; 94640; 94760; 99285

== ENCOUNTER → 2022-01-01 | Outpatient (CLI) | payer OTHER ==
--- NOTE | 2022-01-04 06:26 | PE ---
EXAMINATION TYPE: PET CT fusion skull to thigh DATE OF EXAM: 01/01/2022 COMPARISON: CTA chest December 02, 2021. CT abdomen and pelvis December 03, 2021 HISTORY: Solitary pulmonary nodule TECHNIQUE: Following the intravenous administration of 12.4 mCi of F-18 FDG, whole body images are p erformed from the skull base to the midthigh. Images are reviewed on the computer in the coronal, ax ial, and sagittal planes. Reconstructed rotating images are created on independent workstation and r eviewed on the computer. A localization and attenuation correction CT is performed in conjunction w ith the PET scan. Blood glucose level equals 86. SCAN: Initial Scan FINDINGS: SKULL BASE AND NECK: Symmetric uptake at level of vocal cords presumed product of phonation. CHEST, MEDIASTINUM, AND HILAR REGION: Improved masslike consolidation left mid lung with some residua l 1.8 x 1.4 cm irregular mass or resolving masslike consolidation axial image 85, this area is ametab olic. There is more ill-defined infiltrate in the lower lungs present bilaterally including smaller r ight lower lobe nodules and/or nodular consolidation. For reference there is 1.2 x 0.9 cm nodule or n odular consolidation right lower lobe axial image 112, max SUV is 1.89. There is ametabolic 1.4 x 1.2 cm lingular nodule or nodular consolidation axial image 116, max SUV 1.01. ABDOMEN AND PELVIS: Normal excretion is present. No adrenal masses. No abnormal hypermetabolic uptake . OSSEOUS STRUCTURES: No abnormal hypermetabolic uptake. OTHER CT: There is a four-vessel aortic arch which is normal variant. Prominent pulmonary arteries wilde ggesting underlying pulmonary artery hypertension. Mild to moderate disc space narrowing and spurring lumbosacral junction. IMPRESSION: Improving areas of nodular consolidation with some areas of nodularity remaining present. Neoplasm not excluded though felt March less likely given the interval improvement. Suspect resolvin g infectious process. Consider follow-up CT and/or PET CT in 3 months time to reassess.
== END | disposition home or self-care (01) ==
LOC: RADPETMAIN 15:33
PROVIDERS: ATTEND Internal Medicine
DX: J98.4 Other disorders of lung (principal); R91.1 Solitary pulmonary nodule
CPT/HCPCS: 78815; A9552

== ENCOUNTER → 2022-05-12 | Outpatient (CLI) | payer OTHER ==
--- NOTE | 2022-05-14 16:26 | CT ---
EXAMINATION TYPE: CT chest w con CT DLP: 213.40 mGycm, Automated exposure control for dose reduction was used. DATE OF EXAM: 05/12/2022 5:48 PM COMPARISON: PET/CT 01/01/2022 CLINICAL INDICATION:Female, 61 years old with history of R91.8 abn lung field, abn lung field. TECHNIQUE: Multiple axial images were obtained through the chest. Sagittal and coronal reformats were created for review. Contrast used:82 mL of Isovue 370 with IV Contrast Oral contrast used: none. FINDINGS: LUNGS/ PLEURA: There is interval worsening of patchy peripheral opacities and interstitial thickening most pronounced in the right lung to a lesser extent involving the left lung. There is intralobular septal thickening most pronounced in the lung apices. AIRWAY: Secretion seen within the trachea lung along the along the right. HEART: Size within normal limits. MEDIASTINUM: Right low paratracheal lymph node measuring millimeters in short axis has mildly increas ed in size from 01/01/2022. VASCULATURE: No aortic aneurysm. There is a 4 vessel aortic arch. Visualized vessels appear patent. There is scattered mild atherosclerosis of the arterial vasculature. MUSCULOSKELETAL: No acute osseous abnormalities SOFT TISSUES/LYMPH NODES: Unremarkable. LOWER NECK: No significant findings. UPPER ABDOMEN: No significant findings. IMPRESSION: Waxing and waning patchy airspace opacities and nodularities with interstitial thickening. Clinical c orrelation for atypical infectious processes should be considered additionally inflammation processes such as chronic eosinophilic pneumonia should be considered. Consider bronchoalveolar lavage for qamar pling.
== END | disposition home or self-care (01) ==
LOC: RADCTMAIN 17:04
PROVIDERS: ATTEND Internal Medicine
DX: J82.81 Chronic eosinophilic pneumonia (principal); R91.8 Other nonspecific abnormal finding of lung field
CPT/HCPCS: 71260; Q9967

== ENCOUNTER → 2022-05-27 | Outpatient (CLI) | payer OTHER ==
[2022-05-27 12:48] LABS: Anisocytosis Marked; HCT 31.2 % (34.0-46.0); HGB 9.3 gm/dL (11.4-16.0); Hypochromasia Marked; MCH 27.5 pg (25.0-35.0); Macrocytosis Slight; Mean Platelet Volume 15.2; Microcytosis Slight; Poikilocytosis Moderate; RBC 3.39 m/uL (3.80-5.40)
[2022-05-27 12:49] LABS: MCV 91.9 fL (80.0-100.0); Platelet Count 175 k/uL (150-450); RDW 25.2 % (11.5-15.5)
[2022-05-27 14:18] LABS: Band Neutrophils % 1 %; Basophils # (M) 0.03 k/uL (0-0.2); Monocytes # (M) 0.03 k/uL (0-1.0); Neutrophils % (M) 79 %; Nucleated Red Blood Cells 2 /100 WBC (0-0); Total Cells Counted 200
[2022-05-27 14:19] LABS: Eosinophils # (M) 0.29 k/uL (0-0.7); Lymphocytes # (M) 0.26 k/uL (1.0-4.8); WBC 2.9 k/uL (3.8-10.6)
[2022-05-27 14:22] LABS: Polychromasia Present; Tear Drop Cells Present
[2022-05-27 14:31] LABS: Erythrocyte Sedimentation Rate 48 mm/hr (0-20)
[2022-05-27 14:44] LABS: Total Eosinophil Count 290 #EOS/uL (150-300)
[2022-05-27 19:47] LABS: Immunoglobulin E 6.73 IU/mL (0.00-114.00)
[2022-05-28 12:14] LABS: IgG Subclass 1 510.9 mg/dL (382.40-928.60); IgG Subclass 2 241.5 mg/dL (241.80-700.30); IgG Subclass 3 68.9 mg/dL (21.82-176.00); IgG Subclass 4 3.3 mg/dL (3.92-86.40)
== END | disposition home or self-care (01) ==
LOC: LABWHC1 10:33
PROVIDERS: ATTEND Internal Medicine
DX: Z87.01 Personal history of pneumonia (recurrent) (principal)
CPT/HCPCS: 36415; 82784; 82785; 82787; 85008; 85025; 85652; 86001; 86606; 86609

== ENCOUNTER → 2022-06-02 | Outpatient (CLI) | payer OTHER ==
--- NOTE | 2022-06-02 15:11 | BD ---
EXAMINATION TYPE: Axial Bone Density DATE OF EXAM: 06/02/2022 COMPARISON: BASELINE CLINICAL HISTORY: 62 years old Female. ICD-10 CODE: [id number] screening, Z780 asymptomat Height: 61 Weight: 132 FRAX RISK QUESTIONS: Alcohol (3 or more units per day): NO Family History (Parent hip fracture): NO History of Fracture in Adulthood: NO Secondary Osteoporosis: YES 3. Menopause before 45: YES 41 YEARS OLD Rheumatoid Arthritis: NO Current Tobacco Use: NO RISK FACTORS HISTORY OF: Family History of Osteoporosis: NO Active: YES Diet low in dairy products/other sources of calcium: YES Postmenopausal woman: YES Lost more than 2 inches in height since high school: NO Frequent falls: NO Poor Health: COPD , MDS Hyperparathyroidism: NO Adrenal Insufficiency: NO MEDICATIONS: Additional Medications: YES INHALER , XANAX , VIT D , EXAM MEASUREMENTS: Bone mineral densitometry was performed using the [employer] System. Bone mineral density as measured about the Lumbar spine is: ----- L1-L4(G/cm2): 0.988 T Score Values are as follows: ----- L1: -1.3 ----- L2: -1.6 ----- L3: -1.6 ----- L4: -2.0 ----- L1-L4: -1.6 Bone mineral density BASELINE Bone mineral density about the R hip (g/cm2): 0.698 Bone mineral density about the L hip (g/cm2): 0.727 T Score values are as follows: -----R Neck: -2.4 -----L Neck: -1.7 -----R Total: -2.5 -----L Total: -2.2 Bone mineral density BASELINE FRAX%s: The graph provided illustrates a 12.1% chance for a major osteoporotic fx and a 2.2% chance f or the hips probability for fx in 10 years time. IMPRESSION: Osteopenia (T Score between -2.5 and -1). There is slightly increased risk of fracture and the patient may be considered for treatment. Re-Screen 2-5 years. NOTE: T-SCORE=SD OF THE YOUNG ADULT MEAN.
[2022-06-02 16:22] LABS: ALT 14 U/L (4-34); AST 18 U/L (14-36); African American GFR (CKD) >90 (>60 ml/min/1.73 sqM); Albumin 3.7 g/dL (3.5-5.0); Alkaline Phosphatase 90 U/L (38-126); Anion Gap 8 mmol/L; Blood Urea Nitrogen 9 mg/dL (7-17); Calcium 8.8 mg/dL (8.4-10.2); Carbon Dioxide 24 mmol/L (22-30); Chloride 105 mmol/L (98-107); Glucose 89 mg/dL (74-99); Non-African American GFR(CKD) >90 (>60 ml/min/1.73 sqM); Potassium 3.8 mmol/L (3.5-5.1); Sodium 137 mmol/L (137-145); Total Bilirubin 0.5 mg/dL (0.2-1.3); Total Protein 6.6 g/dL (6.3-8.2)
[2022-06-02 16:46] LABS: Anisocytosis Marked; Basophils % (A) 1 %; Eosinophils # (A) 0.5 k/uL (0-0.7); Eosinophils % (A) 12 %; HCT 31.5 % (34.0-46.0); HGB 9.6 gm/dL (11.4-16.0); Hypochromasia Marked; Lymphocytes # (A) 1.1 k/uL (1.0-4.8); Lymphocytes % (A) 29 %; MCH 29.3 pg (25.0-35.0); MCHC 30.5 g/dL (31.0-37.0); MCV 95.8 fL (80.0-100.0); Macrocytosis Moderate; Mean Platelet Volume 9.4; Microcytosis Slight; Monocytes % (A) 1 %; Neutrophils # (A) 1.9 k/uL (1.3-7.7); Neutrophils % (A) 53 %; Poikilocytosis Moderate; RBC 3.28 m/uL (3.80-5.40); WBC 3.7 k/uL (3.8-10.6)
[2022-06-02 16:47] LABS: RDW 28.5 % (11.5-15.5)
[2022-06-02 18:07] LABS: Platelet Count 142 k/uL (150-450)
[2022-06-02 18:08] LABS: Polychromasia Present
[2022-06-02 23:58] LABS: Chol/HDL Ratio 2.94 Ratio; LDL Cholesterol,Calculated 93.2 mg/dL (0.0-131.0)
--- NOTE | 2022-06-03 16:32 | MM ---
Reason for Exam: Screening (asymptomatic). Last mammogram was performed 2 year(s) and 1 month(s) ago. Patient History: Menarche at age 12. Patient has no children. Postmenopausal. Risk Values: Marisela 5 year model risk: 1.7%. NCI Lifetime model risk: 7.4%. Prior Study Comparison: 10/14/2014 Bilateral Screening Mammogram, [facility]. 04/07/2020 Bilateral Screening Mammogram, [facility]. Tissue Density: There are scattered fibroglandular densities. Findings: Analyzed By CAD. Pattern is symmetrical and stable. Benign-appearing punctate calcifications are present. No suspicious groups of microcalcifications, spiculated or lobular masses, architectural distortion or other secondary signs of malignancy are mammographically apparent. Overall Assessment: Benign, BI-RAD 2 Management: Screening Mammogram of both breasts in 1 year. A negative mammogram report should not preclude additional follow up of suspicious palpable abnormalities. Patient should continue monthly self breast exam. A clinical breast exam by your physician is recommended on an annual basis and results should be correlated with mammographic findings. Electronically signed and approved by: Donald Jha D.O. Radiologis
== END | disposition home or self-care (01) ==
LOC: RADBDWWP 13:58
PROVIDERS: ATTEND Internal Medicine
DX: Z12.31 Encounter for screening mammogram for malignant neoplasm of breast (principal); Z13.820 Encounter for screening for osteoporosis; J44.9 Chronic obstructive pulmonary disease, unspecified; M85.89 Other specified disorders of bone density and structure, multiple sites; Z78.0 Asymptomatic menopausal state
CPT/HCPCS: 77063; 77067; 77080; 80053; 80061; 84443; 85025; 87070; 87205

== ENCOUNTER 2022-08-18 11:14 | Day surgery (SDC) | payer OTHER ==
[~2022-08-18 11:14] MED LIST changes: +LIDOCAINE 1% (10MG/ML) FOR IV START INTRADERMA PRN; +ONDANSETRON 4 MG/2 ML VIAL IVP ONE; +fentaNYL (PF) 50 MCG/ML 2 ML AMP IVP PRN
[2022-08-18] MEDS ORDERED: LACTATED RINGERS 1,000 ML IV ONE (12:03)
[2022-08-18] MEDS ORDERED: LIDOCAINE 4% LTA KIT (4 ML) TOPICAL ONE (12:47)
[2022-08-18] MEDS ORDERED: fentaNYL (PF) 50 MCG/ML 2 ML AMP ONE (12:47)
[2022-08-18] MEDS ORDERED: SUCCINYLCHOLINE CHLORIDE 200 MG/10 ML VIAL IV ONE (12:47)
[2022-08-18] MEDS ORDERED: PROPOFOL 10 MG/ML 20 ML VIAL IV ONE (12:47)
[2022-08-18] MEDS ORDERED: MIDAZOLAM 2 MG/2 ML VIAL ONE (12:47)
[2022-08-18 12:51] LABS: Glucose,Whole Blood 82 mg/dL (70-110)
[2022-08-18 13:44] VITALS: TEMP 97.3
[2022-08-18 14:47] VITALS: BP 125/76; RESP 18
--- NOTE | 2022-08-18 14:47 | FL ---
EXAMINATION TYPE: FL bronchoscopy DATE OF EXAM: 08/18/2022 FLUOROSCOPY Fluoroscopy time of 1 minute 6 seconds was used during right lower lobe endobronchial/transbronchial biopsy. 1 image/s document/s the procedure. Total DAP: 1.38
[2022-08-18 14:59] VITALS: PULSE 85
--- NOTE | 2022-08-18 15:22 | XR ---
EXAMINATION TYPE: XR chest 1V portable DATE OF EXAM: 08/18/2022 Comparison: 07/25/2022 Clinical History: 62-year-old female status post right lower lobe bronchoscopy Findings: Heart and lungs are normal in size. Increasing reticular and confluent opacity right lower lobe. No a ppreciable pneumothorax or pleural effusion. Impression: COPD and interstitial changes. Patchy bibasilar opacities. Interval worsening in airspace disease at the right lower lung. Findings could be due to postbiopsy edema, hemorrhage, or acute exacerbation of interstitial pneumonitis.
--- NOTE | 2022-08-18 18:57 | OP ---
OPERATIVE REPORT DATE OF SERVICE : PROCEDURES PERFORMED: Bronchoscopy, multiple transbronchial biopsies of the right lower lobe using fluoroscopy as guidance, bronchoalveolar lavage of the right lower lobe, and bronchoalveolar lavage of the left lower lobe. PREOPERATIVE DIAGNOSIS: Diffuse reticulonodular infiltrates involving right lower lobe and left lower lobe. POSTOPERATIVE DIAGNOSIS: Diffuse reticulonodular infiltrates involving right lower lobe and left lower lobe. ANESTHESIA USED: The patient was given general anesthesia for the procedure. DESCRIPTION OF PROCEDURE: The patient was brought into the bronchoscopy suite. She was monitored via pulse oximetry. She was also monitored via cardiac rhythm monitoring, and blood pressure was intermittently monitored. The patient was intubated by [employer] and placed on mechanical ventilation. An adapter was applied. Then, after adequate sedation and anesthesia, the bronchoscope was advanced down to the area of the dinesh. Thorough examination was done of the dinesh, right upper lobe, right middle lobe, right lower lobe, left upper lobe, lingula, and left lower lobe. There was no evidence of any significant purulent secretions. No evidence of any endobronchial tumors. Then, using fluoroscopy, the bronchoscope was wedged into the lateral segment of the right lower lobe, and with fluoroscopy as guidance, multiple transbronchial biopsies were done from the lateral segment of the right lower lobe. Then, multiple biopsies were done from different segments of the right lower lobe using fluoroscopy as guidance, and these biopsies were sent for different diagnostic studies. Then, the bronchoalveolar lavage of the whole right lower lobe was done, and the lavage was sent for different diagnostic studies/cultures. Then, the lavage was done of the left lower lobe and was sent for different diagnostic studies. Procedure was well tolerated. No complications. Minimal blood loss, less than 5 mL. Chest x-ray was ordered postoperatively. MMODL / IJN: [id number] /
[2022-08-18 23:54] LABS: Appearance,BF Slightly Cloudy
[2022-08-18 23:55] LABS: Appearance,BF Slightly Cloudy
== END 2022-08-18 15:43 | disposition home or self-care (01) ==
LOC: ORWHC2ENDO 11:14
PROVIDERS: ATTEND Internal Medicine
DX: R91.8 Other nonspecific abnormal finding of lung field (principal); J45.909 Unspecified asthma, uncomplicated; F12.90 Cannabis use, unspecified, uncomplicated; K21.9 Gastro-esophageal reflux disease without esophagitis; Z87.891 Personal history of nicotine dependence; Z79.899 Other long term (current) drug therapy
CPT/HCPCS: 31628; 31624; 88305; 89050; 87252; 87070; 87205; 87116; 87102; 87206; 71045; J2250; J0330; J3010; J2704; 87496; 87498; 87502; 87529; 87634; 87798

== ENCOUNTER 2022-08-25 14:40 | Inpatient (IN) | payer OTHER ==
--- NOTE | 2022-08-25 15:26 | ED ---
SOB HPI - General Chief Complaint: Shortness of Breath Stated Complaint: Weakness Time Seen by Provider: 08/25/22 15:12 Source: patient, EMS Mode of arrival: EMS Limitations: physical limitation - History of Present Illness Initial Comments: This patient is a 62-year-old woman who presents to have evaluation for shortness of breath. The patient states that she had a bronchoscopy performed last week by Dr. Weber. She states that she had done well for a couple of days after and then she started to become short of breath Tuesday. She noticed worsening over that interval and had to call EMS today because she was extremely short of breath at rest. She has not noticed fever or chills. She does acknowledge generalized weakness and fatigue. She states she is coughing some sputum. No change in urination or bowel movements. She has not noted bloody or tarry stools. No change in her legs, pain or swelling. She states that her last transfusion had been in the middle of July when she had been admitted in the hospital. MD Complaint: shortness of breath Onset/Timin -: days(s) Severity scale (1-10): 0 Consistency: constant Improves With: nothing Worsens With: exertion Associated Symptoms: denies other symptoms Treatments Prior to Arrival: oxygen - Related Data Home Medications Medication Instructions Recorded Confirmed ALPRAZolam [Xanax] 0.25 mg PO BID 07/16/22 08/25/22 Ascorbic Acid [Vitamin C] 500 mg PO DAILY 07/16/22 08/25/22 Cyanocobalamin (Vitamin B-12) 5,000 mcg PO DAILY 07/16/22 08/25/22 [Vitamin B-12] Albuterol Inhaler [Ventolin Hfa 1 - 2 puff INHALATION Q6H PRN 08/16/22 08/25/22 Inhaler] Albuterol Nebulized [Ventolin 2.5 mg INHALATION RT-QID 08/16/22 08/25/22 Nebulized] Folic Acid 1 mg PO DAILY 08/16/22 08/25/22 Ferrous Sulfate [Slow Fe] 142 mg PO DAILY 08/25/22 08/25/22 Tiotropium [place] [Spiriva] 1 puff IH RT-DAILY 08/25/22 08/25/22 predniSONE See Taper PO DAILY 08/25/22 08/25/22 Previous Rx's Medication Instructions Recorded Pantoprazole [Protonix] 40 mg PO AC-BID #60 tab 07/26/22 Allergies Allergy/AdvReac Type Severity Reaction Status Date / Time ferumoxytol Allergy Severe Rash/Hives Verified 08/25/22 15:57 Review of Systems ROS Statement: Those systems with pertinent positive or pertinent negative responses have been documented in the HPI. ROS Other: All systems not noted in ROS Statement are negative. Constitutional: Reports: weakness. Denies: fever, chills Respiratory: Reports: cough, dyspnea. Denies: hemoptysis Cardiovascular: Reports: palpitations. Denies: chest pain, orthopnea, edema, syncope Gastrointestinal: Denies: abdominal pain, vomiting, diarrhea Genitourinary: Denies: dysuria, hematuria Musculoskeletal: Denies: back pain Skin: Denies: rash Neurological: Denies: headache, weakness, numbness Past Medical History Past Medical History: Blood Disorder, COPD, Pneumonia Additional Past Medical History / Comment(s): Myelodysplastic syndrome ., Neutropenia., macrocytosis., iron deficiency anemia- hx iron transfusions., emphysema., hospitalized at [facility] 07/16 to 07/27/22 - egd & colonoscopy done showing erosive esophagitis, hiatal hernia, diverticulitis, hemorrhoids, colon polyp., bronchoscopy 07/21/22 ., pneumonia, she received 3 blood transfusions., oxygen at 2L. History of Any Multi-Drug Resistant Organisms: None Reported Past Surgical History: No Surgical Hx Reported Additional Past Surgical History / Comment(s): TEETH PULLED, COLONOSCOPY, EGD, BRONCHOSCOPY Past Anesthesia/Blood Transfusion Reactions: No Reported Reaction Additional Past Anesthesia/Blood Transfusion Reaction / Comment(s): unknown family hx-pt is adopted, no children Past Psychological History: Anxiety Smoking Status: Former smoker Past Alcohol Use History: None Reported Past Drug Use History: Marijuana - Past Family History Father History Unknown: Yes Additional Family Medical History / Comment(s): unknown, adopted at Mother History Unknown: Yes Additional Family Medical History / Comment(s): unknown, adopted at General Exam Limitations: physical limitation General appearance: alert, in distress Head exam: Present: atraumatic, normocephalic Eye exam: Present: normal appearance, other (Conjunctival pallor). Absent: scleral icterus, conjunctival injection ENT exam: Present: mucous membranes dry, other (Mucosal pallor) Neck exam: Present: normal inspection, full ROM Respiratory exam: Present: respiratory distress, rales, rhonchi, accessory muscle use. Absent: wheezes, stridor, chest wall tenderness, decreased breath sounds Cardiovascular Exam: Present: normal rhythm, tachycardia, normal heart sounds. Absent: systolic murmur, diastolic murmur, rubs, gallop GI/Abdominal exam: Present: soft. Absent: distended, tenderness, guarding, rebound, rigid, mass Extremities exam: Present: normal inspection, normal capillary refill. Absent: pedal edema, calf tenderness Back exam: Present: normal inspection Neurological exam: Present: alert. Absent: motor sensory deficit Skin exam: Present: warm, dry, intact, pallor. Absent: rash Course Vital Signs 08/25/22 08/25/22 08/25/22 14:59 16:01 19:24 Temperature 98.1 F Pulse Rate 150 H 151 H 142 H Respiratory 40 H 22 24 Rate Blood Pressure 146/84 117/87 109/61 O2 Sat by Pulse 98 100 96 Oximetry 08/25/22 08/25/22 08/25/22 20:02 20:14 20:40 Temperature Pulse Rate 151 H 147 H 135 H Respiratory 24 Rate Blood Pressure 144/99 O2 Sat by Pulse 95 Oximetry Medical Decision Making - Medical Decision Making This patient is 62-year-old woman presenting with complaint of dyspnea and cough. Workup does reveal upper lung infiltrate and patient started on healthcare associated antibiotics. Patient is admitted with consultation for her remedy developer. The patient had chest x-ray which I interpreted as showing left upper lobe infiltrate. The patient had CT angiogram of the chest which I interpreted as not showing pulmonary embolism. Was pt. sent in by a medical professional or institution (, PA, DIGITAL DEVELOPER, urgent care, hospital, or group home...) When possible be specific @ -[No] Did you speak to anyone other than the patient for history (EMS, parent, family, police, friend...)? What history was obtained from this source @ -[No] Did you review nursing and triage notes (agree or disagree)? Why? @ -[I reviewed and agree with nursing and triage notes] Were old charts reviewed (outside hosp., previous admission, EMS record, old E KG, old radiological studies, urgent care reports/EKG's, group home records)? Report findings @ - old charts were reviewed] Differential Diagnosis (chest pain, altered mental status, abdominal pain women, abdominal pain men, vaginal bleeding, weakness, fever, dyspnea, syncope, headache, dizziness, GI bleed, back pain, seizure, CVA, palpatations, mental health, musculoskeletal)? @ -[Differential Dyspnea: Coronary syndrome, arrhythmia, tamponade, asthma, COPD, pulmonary embolism, pneumonia, pneumothorax, pulmonary effusion, anaphylaxis, diabetic ketoacidosis, flailed chest, pulmonary contusion, diaphragmatic rupture, anemia, neuromu scular, this is not meant to be an all-inclusive list. EKG interpreted by me (3pts min.). @ -[As above] X-rays interpreted by me (1pt min.). @ -[As above CT interpreted by me (1pt min.). @ -[As above U/S interpreted by me (1pt. min.). @ -[None done] What testing was considered but not performed or refused? (CT, X-rays, U/S, lab s)? Why? @ -[None] What meds were considered but not given or refused? Why? @ -[None] Did you discuss the management of the patient with other professionals (professionals i.e. DrAugustina, PA, DIGITAL DEVELOPER, lab, RT, psych nurse, social media sr strategy manager, financial reporting director, teacher, fire information officer, case briefer)? Give summary @ -[Yes with admitting physician Was smoking cessation discussed for >3mins.? @ -[No] Was critical care preformed (if so, how long)? @ -[No] Were there social determinants of health that impacted care today? How? (Homelessness, low income, unemployed, alcoholism, drug addiction, transportation, low edu. Level, literacy, decrease access to med. care, snf, rehab)? @ -[No] Was there de-escalation of care discussed even if they declined (Discuss DNR or withdrawal of care, Hospice)? DNR status @ -[No] What co-morbidities impacted this encounter? (DM, HTN, Smoking, COPD, CAD, Cancer, CVA, ARF, Chemo, Hep., AIDS, mental health diagnosis, sleep apnea, morbid obesity)? @ -[COPD Was patient admitted / discharged? Hospital course, mention meds given and route, prescriptions, significant lab abnormalities, going to OR and other pertinent info. @ -[Patient admitted Undiagnosed new problem with uncertain prognosis? @ -[No] Drug Therapy requiring intensive monitoring for toxicity (Heparin, Nitro, Insulin, Cardizem)? @ -[No] Were any procedures done? @ -[No] Diagnosis/symptom? @ -[1. Acute exacerbation of COPD 2. Left upper lobe pneumonia, acute 3. Myelodysplastic syndrome, chronic Acute, or Chronic, or Acute on Chronic? @ -[default] Uncomplicated (without systemic symptoms) or Complicated (systemic symptoms)? @ -[Complicated Side effects of treatment? @ -[No] Exacerbation, Progression, or Severe Exacerbation? @ -[Severe exacerbation, COPD Poses a threat to life or bodily function? How? (Chest pain, [place], [place], pneumonia, PE, COPD, DKA, ARF, appy, cholecystitis, CVA, Diverticulitis, Homicidal, Suicidal, threat to staff... and all critical care pts) @ -[Yes - Lab Data Result diagrams: 09/02/22 04:43 09/02/22 04:43 Lab Results 08/25/22 08/25/22 08/25/22 Range/Units 13:00 13:00 15:45 WBC 5.2 (3.8-10.6) k/uL RBC 2.73 L (3.80-5.40) m/uL Hgb 8.5 L D (11.4-16.0) gm/dL Hct 27.6 L (34.0-46.0) % MCV 101.0 H (80.0-100.0) fL MCH 31.1 (25.0-35.0) pg MCHC 30.8 L (31.0-37.0) g/dL RDW 23.9 H (11.5-15.5) % Plt Count (150-450) k/uL MPV 15.1 Neutrophils % (Manual) 91 % Lymphocytes % (Manual) 7 % Monocytes % (Manual) 1 % Eosinophils % (Manual) 1 % Neutrophils # (Manual) 4.73 (1.3-7.7) k/uL Lymphocytes # (Manual) 0.36 L (1.0-4.8) k/uL Monocytes # (Manual) 0.05 (0-1.0) k/uL Eosinophils # (Manual) 0.05 (0-0.7) k/uL Nucleated RBCs 7 H (0-0) /100 WBC Manual Slide Review Performed Large Platelets Present Polychromasia Present Hypochromasia Marked Poikilocytosis Slight Anisocytosis Moderate Macrocytosis Marked A PT (9.0-12.0) sec INR (<1.2) APTT (22.0-30.0) sec D-Dimer (<0.60) mg/L FEU Sodium (137-145) mmol/L Potassium (3.5-5.1) mmol/L Chloride (98-107) mmol/L Carbon Dioxide (22-30) mmol/L Anion Gap mmol/L BUN (7-17) mg/dL Creatinine (0.52-1.04) mg/dL Est GFR (CKD-EPI)AfAm (>60 ml/min/1.73 sqM) Est GFR (CKD-EPI)NonAf (>60 ml/min/1.73 sqM) Glucose (74-99) mg/dL Lactic Ac Sepsis Rflx Plasma Lactic Acid Alex (0.7-2.0) mmol/L Calcium (8.4-10.2) mg/dL Total Bilirubin (0.2-1.3) mg/dL AST (14-36) U/L ALT (4-34) U/L Alkaline Phosphatase (38-126) U/L Troponin I (0.000-0.034) ng/mL NT-Pro-B Natriuret Pep pg/mL Total Protein (6.3-8.2) g/dL Albumin (3.5-5.0) g/dL Urine Color Yellow Urine Appearance Cloudy H (Clear) Urine pH 5.0 (5.0-8.0) Ur Specific [place] 1.032 (1.001-1.035) Urine Protein Trace H (Negative) Urine Glucose (UA) Negative (Negative) Urine Ketones Negative (Negative) Urine Blood Negative (Negative) Urine Nitrite Negative (Negative) Urine Bilirubin Negative (Negative) Urine Urobilinogen <2.0 (<2.0) mg/dL Ur Leukocyte Esterase Negative (Negative) Urine RBC 3 (0-5) /hpf Urine WBC 3 (0-5) /hpf Ur Squamous Epith Cells <1 (0-4) /hpf Urine Bacteria Rare H (None) /hpf Urine Mucus Rare H (None) /hpf Legionella Source Urine Urine Legionella Ag Negative (Negative) Blood Type Blood Type Recheck Bld Type Recheck Status Antibody Screen Crossmatch Spec Expiration Date 08/25/22 08/25/22 08/25/22 Range/Units 15:45 15:45 15:45 WBC (3.8-10.6) k/uL RBC (3.80-5.40) m/uL Hgb (11.4-16.0) gm/dL Hct (34.0-46.0) % MCV (80.0-100.0) fL MCH (25.0-35.0) pg MCHC (31.0-37.0) g/dL RDW (11.5-15.5) % Plt Count (150-450) k/uL MPV Neutrophils % (Manual) % Lymphocytes % (Manual) % Monocytes % (Manual) % Eosinophils % (Manual) % Neutrophils # (Manual) (1.3-7.7) k/uL Lymphocytes # (Manual) (1.0-4.8) k/uL Monocytes # (Manual) (0-1.0) k/uL Eosinophils # (Manual) (0-0.7) k/uL Nucleated RBCs (0-0) /100 WBC Manual Slide Review Large Platelets Polychromasia Hypochromasia Poikilocytosis Anisocytosis Macrocytosis PT 10.5 (9.0-12.0) sec INR 1.0 (<1.2) APTT 21.5 L (22.0-30.0) sec D-Dimer 1.31 H (<0.60) mg/L FEU Sodium 139 (137-145) mmol/L Potassium 4.2 (3.5-5.1) mmol/L Chloride 104 (98-107) mmol/L Carbon Dioxide 21 L (22-30) mmol/L Anion Gap 14 mmol/L BUN 41 H (7-17) mg/dL Creatinine 0.86 (0.52-1.04) mg/dL Est GFR (CKD-EPI)AfAm 84 (>60 ml/min/1.73 sqM) Est GFR (CKD-EPI)NonAf 73 (>60 ml/min/1.73 sqM) Glucose 123 H (74-99) mg/dL Lactic Ac Sepsis Rflx Plasma Lactic Acid Alex 3.6 H* (0.7-2.0) mmol/L Calcium 8.0 L (8.4-10.2) mg/dL Total Bilirubin 1.2 (0.2-1.3) mg/dL AST 56 H (14-36) U/L ALT 34 (4-34) U/L Alkaline Phosphatase 78 (38-126) U/L Troponin I (0.000-0.034) ng/mL NT-Pro-B Natriuret Pep pg/mL Total Protein 6.1 L (6.3-8.2) g/dL Albumin 3.2 L (3.5-5.0) g/dL Urine Color Urine Appearance (Clear) Urine pH (5.0-8.0) Ur Specific [place] (1.001-1.035) Urine Protein (Negative) Urine Glucose (UA) (Negative) Urine Ketones (Negative) Urine Blood (Negative) Urine Nitrite (Negative) Urine Bilirubin (Negative) Urine Urobilinogen (<2.0) mg/dL Ur Leukocyte Esterase (Negative) Urine RBC (0-5) /hpf Urine WBC (0-5) /hpf Ur Squamous Epith Cells (0-4) /hpf Urine Bacteria (None) /hpf Urine Mucus (None) /hpf Legionella Source Urine Legionella Ag (Negative) Blood Type Blood Type Recheck Bld Type Recheck Status Antibody Screen Crossmatch Spec Expiration Date 08/25/22 08/25/22 08/25/22 Range/Units 15:45 15:45 15:45 WBC (3.8-10.6) k/uL RBC (3.80-5.40) m/uL Hgb (11.4-16.0) gm/dL Hct (34.0-46.0) % MCV (80.0-100.0) fL MCH (25.0-35.0) pg MCHC (31.0-37.0) g/dL RDW (11.5-15.5) % Plt Count (150-450) k/uL MPV Neutrophils % (Manual) % Lymphocytes % (Manual) % Monocytes % (Manual) % Eosinophils % (Manual) % Neutrophils # (Manual) (1.3-7.7) k/uL Lymphocytes # (Manual) (1.0-4.8) k/uL Monocytes # (Manual) (0-1.0) k/uL Eosinophils # (Manual) (0-0.7) k/uL Nucleated RBCs (0-0) /100 WBC Manual Slide Review Large Platelets Polychromasia Hypochromasia Poikilocytosis Anisocytosis Macrocytosis PT (9.0-12.0) sec INR (<1.2) APTT (22.0-30.0) sec D-Dimer (<0.60) mg/L FEU Sodium (137-145) mmol/L Potassium (3.5-5.1) mmol/L Chloride (98-107) mmol/L Carbon Dioxide (22-30) mmol/L Anion Gap mmol/L BUN (7-17) mg/dL Creatinine (0.52-1.04) mg/dL Est GFR (CKD-EPI)AfAm (>60 ml/min/1.73 sqM) Est GFR (CKD-EPI)NonAf (>60 ml/min/1.73 sqM) Glucose (74-99) mg/dL Lactic Ac Sepsis Rflx Plasma Lactic Acid Alex (0.7-2.0) mmol/L Calcium (8.4-10.2) mg/dL Total Bilirubin (0.2-1.3) mg/dL AST (14-36) U/L ALT (4-34) U/L Alkaline Phosphatase (38-126) U/L Troponin I <0.012 (0.000-0.034) ng/mL NT-Pro-B Natriuret Pep 1940 pg/mL Total Protein (6.3-8.2) g/dL Albumin (3.5-5.0) g/dL Urine Color Urine Appearance (Clear) Urine pH (5.0-8.0) Ur Specific [place] (1.001-1.035) Urine Protein (Negative) Urine Glucose (UA) (Negative) Urine Ketones (Negative) Urine Blood (Negative) Urine Nitrite (Negative) Urine Bilirubin (Negative) Urine Urobilinogen (<2.0) mg/dL Ur Leukocyte Esterase (Negative) Urine RBC (0-5) /hpf Urine WBC (0-5) /hpf Ur Squamous Epith Cells (0-4) /hpf Urine Bacteria (None) /hpf Urine Mucus (None) /hpf Legionella Source Urine Legionella Ag (Negative) Blood Type A Positive Blood Type Recheck A Pos Bld Type Recheck Status No Antibody Screen NEGATIVE Crossmatch See Detail Spec Expiration Date 08/28/2022 - 234408/25/22 08/25/22 Range/Units 16:21 17:59 WBC (3.8-10.6) k/uL RBC (3.80-5.40) m/uL Hgb (11.4-16.0) gm/dL Hct (34.0-46.0) % MCV (80.0-100.0) fL MCH (25.0-35.0) pg MCHC (31.0-37.0) g/dL RDW (11.5-15.5) % Plt Count (150-450) k/uL MPV Neutrophils % (Manual) % Lymphocytes % (Manual) % Monocytes % (Manual) % Eosinophils % (Manual) % Neutrophils # (Manual) (1.3-7.7) k/uL Lymphocytes # (Manual) (1.0-4.8) k/uL Monocytes # (Manual) (0-1.0) k/uL Eosinophils # (Manual) (0-0.7) k/uL Nucleated RBCs (0-0) /100 WBC Manual Slide Review Large Platelets Polychromasia Hypochromasia Poikilocytosis Anisocytosis Macrocytosis PT (9.0-12.0) sec INR (<1.2) APTT (22.0-30.0) sec D-Dimer (<0.60) mg/L FEU Sodium (137-145) mmol/L Potassium (3.5-5.1) mmol/L Chloride (98-107) mmol/L Carbon Dioxide (22-30) mmol/L Anion Gap mmol/L BUN (7-17) mg/dL Creatinine (0.52-1.04) mg/dL Est GFR (CKD-EPI)AfAm (>60 ml/min/1.73 sqM) Est GFR (CKD-EPI)NonAf (>60 ml/min/1.73 sqM) Glucose (74-99) mg/dL Lactic Ac Sepsis Rflx Y Plasma Lactic Acid Alex 2.8 H* (0.7-2.0) mmol/L Calcium (8.4-10.2) mg/dL Total Bilirubin (0.2-1.3) mg/dL AST (14-36) U/L ALT (4-34) U/L Alkaline Phosphatase (38-126) U/L Troponin I (0.000-0.034) ng/mL NT-Pro-B Natriuret Pep pg/mL Total Protein (6.3-8.2) g/dL Albumin (3.5-5.0) g/dL Urine Color Urine Appearance (Clear) Urine pH (5.0-8.0) Ur Specific [place] (1.001-1.035) Urine Protein (Negative) Urine Glucose (UA) (Negative) Urine Ketones (Negative) Urine Blood (Negative) Urine Nitrite (Negative) Urine Bilirubin (Negative) Urine Urobilinogen (<2.0) mg/dL Ur Leukocyte Esterase (Negative) Urine RBC (0-5) /hpf Urine WBC (0-5) /hpf Ur Squamous Epith Cells (0-4) /hpf Urine Bacteria (None) /hpf Urine Mucus (None) /hpf Legionella Source Urine Legionella Ag (Negative) Blood Type Blood Type Recheck Bld Type Recheck Status Antibody Screen Crossmatch Spec Expiration Date - EKG Data -: EKG Interpreted by Me EKG shows normal: sinus rhythm, axis (Normal), intervals (Normal), QRS complexes (Normal) Rate: tachycardia (Rate 148 bpm) Interpretation: nonspecific ST-T wave changes Critical Care Time Critical Care Time: Yes (30 minutes) Disposition Clinical Impression: Pneumonia, MDS (myelodysplastic syndrome), low grade, Anemia Disposition: ADMITTED IP TO THIS [facility] Condition: Serious Is patient prescribed a controlled substance at d/c from ED?: No
--- NOTE | 2022-08-25 15:32 | XR ---
EXAMINATION TYPE: XR chest 1V portable DATE OF EXAM: 08/25/2022 COMPARISON: Chest x-ray 1 week ago HISTORY: Dyspnea. TECHNIQUE: Single AP portable frontal upright view of the chest is obtained. FINDINGS: Osseous structures remain demineralized. Cardiac sludge size stable and within normal limi ts. Chronic parenchymal changes bilaterally with areas of increased opacity in the peripheral right m idlung and bilateral lower lungs redemonstrated. New left upper lobe masslike consolidation on curren t study. IMPRESSION: Chronic changes with new left upper lobe masslike pneumonic consolidation.
[2022-08-25 15:58] LABS: Anisocytosis Moderate; HCT 27.6 % (34.0-46.0); Hypochromasia Marked; MCH 31.1 pg (25.0-35.0); MCHC 30.8 g/dL (31.0-37.0); Macrocytosis Marked; Mean Platelet Volume 15.1; Poikilocytosis Slight; RBC 2.73 m/uL (3.80-5.40); RDW 23.9 % (11.5-15.5)
[2022-08-25 16:11] LABS: Albumin 3.2 g/dL (3.5-5.0); Potassium 4.2 mmol/L (3.5-5.1); Total Bilirubin 1.2 mg/dL (0.2-1.3); Total Protein 6.1 g/dL (6.3-8.2)
[2022-08-25 16:21] LABS: Partial Thromboplastin Time 21.5 sec (22.0-30.0); Prothrombin Time 10.5 sec (9.0-12.0)
[2022-08-25] MEDS ORDERED: SODIUM CHLORIDE 0.9% 500 ML 500 ML IV STA (16:27)
[2022-08-25 16:29] LABS: HGB 8.5 gm/dL (11.4-16.0)
[2022-08-25] MEDS ORDERED: SODIUM CHLORIDE 0.9% 1,000 ML IV STA ×2 (16:46→19:41)
[2022-08-25] MEDS ORDERED: AZITHROMYCIN 500 MG TAB PO STA (16:46)
[2022-08-25 17:10] LABS: Eosinophils # (M) 0.05 k/uL (0-0.7); Lymphocytes # (M) 0.36 k/uL (1.0-4.8); Monocytes # (M) 0.05 k/uL (0-1.0); Neutrophils # (M) 4.73 k/uL (1.3-7.7); Neutrophils % (M) 91 %; Nucleated Red Blood Cells 7 /100 WBC (0-0); Polychromasia Present; Total Cells Counted 100; WBC 5.2 k/uL (3.8-10.6)
[2022-08-25 17:11] LABS: Large Platelets Present
--- NOTE | 2022-08-25 17:24 | CT ---
EXAMINATION TYPE: CT chest angio for PE CT DLP: 318.2 mGycm, Automated exposure control for dose reduction was used. DATE OF EXAM: 08/25/2022 5:14 PM COMPARISON: Chest 02/13/2021 CLINICAL INDICATION:Female, 62 years old with history of dyspnea, possible PE; SOB TECHNIQUE/CONTRAST: CTA scan of the thorax is performed with IV Contrast, patient injected with 70cc mL of Isovue 370, pu lmonary embolism protocol. MIP images are created and reviewed these are created on a separate works tation.. FINDINGS: Pulmonary Artery: There is no evidence for a filling defect within the pulmonary vasculature to sugge st acute pulmonary embolism. The pulmonary artery is of normal size. Lungs/Pleura: Scattered airspace consolidations are seen throughout the lungs on a background of cent rilobular emphysema. Findings are worse in the left upper lung. No definitive mass. Airway: Large airways are patent. Heart: Heart is within normal limits for size. Vasculature: No evidence of aortic aneurysm. There is a 4 vessel aortic arch. There is atherosclerosi s of the arterial vasculature. Mediastinum: No gross evidence of adenopathy. Musculoskeletal: No acute osseous abnormalities Soft Tissues: Unremarkable. Lower neck: No significant findings. Upper Abdomen: Left adrenal nodule measuring 1.8 x 1.2 cm is more apparent than 2020. IMPRESSION: 1. No evidence of pulmonary embolism. 2. Multifocal airspace disease on a background of moderate centrilobular emphysema. Findings worse in the left upper lung. Attention on short-term follow-up imaging in 4-6 weeks to ensure resolution. 3. Indeterminate left adrenal nodule which can be further evaluated with CT or MRI adrenal mass yasmeen col. Findings likely represent benign lipid rich adrenal adenoma in the absence of risk factors.
[2022-08-25] MEDS ORDERED: ALBUTEROL NEBULIZED 2.5 MG/3 ML INHALATION STA (18:53)
[2022-08-25] MEDS ORDERED: methylPREDNISolone SOD SUCCI 125 MG/2 ML VIAL IV STA (18:53)
[2022-08-25] MEDS ORDERED: PNEUMONIA PROTOCOL UTILIZED 1 EACH MISC PO PRN (18:56)
[2022-08-25] MEDS ORDERED: PIPERACILLIN-TAZOBACTAM 3.375 GM in SODIUM CHLORIDE 0.9% 100 ML IVPB SCH (19:00)
[2022-08-25] MEDS ORDERED: IPRATROPIUM-ALBUTEROL 3 ML NEB INHALATION PRN (19:42)
[2022-08-25] MEDS: ALPRAZolam 0.25 MG TAB PO SCH (20:05)
[2022-08-25] MEDS ORDERED: VANCOMYCIN IV PER PHARMACY 1 EACH MISC MISCELLANE PRN (20:05)
[2022-08-25] MEDS ORDERED: VANCOMYCIN 1,250 MG in SODIUM CHLORIDE 0.9% 250 ML IVPB STA (20:08)
[2022-08-25] MEDS: IPRATROPIUM-ALBUTEROL 3 ML NEB INHALATION SCH (20:54)
[2022-08-25] MEDS ORDERED: DILTIAZEM 5 MG/ML 5 ML VIAL IVP STA (21:43)
[2022-08-25] MEDS ORDERED: HEPARIN SODIUM 1,000 UN/ML (10ML VL) IV PRN (21:44)
[2022-08-25] MEDS ORDERED: HEPARIN SODIUM 1,000 UN/ML (10ML VL) IV ONE (21:44)
[2022-08-25] MEDS ORDERED: HEPARIN SOD,PORK IN 0.45% NACL 25,000 UNIT in 0.45% NACL 1 250ML.BAG IV SCH (21:45)
[2022-08-25] MEDS ORDERED: DILTIAZEM 125 MG in SODIUM CHLORIDE 0.9% 100 ML IV SCH (21:45)
--- NOTE | 2022-08-25 22:03 | P.HPIM ---
History of Present Illness H&P Date: 08/25/22 Chief Complaint: SOB 62 year old female with MDS, GI bleed, , COPD on 2 L oxygen at home she is coming in due to worsening shortness of breath and palpitations since Tuesday (2 days ago) she noticed increase productive cough with occasional hemoptysis , and left sided pleuritic chest pain, she remained in bed most of the time , as she was getting short of breath with silghtest activity , she denies any wheezing, sick contacts, travel , fever, runny nose , body aches. today she had the meal on wheel people coming in and asked for help, as EMS arrived, they made her walk and her symptoms got worse. she does report some dysuria off/on over past week, along with chills, but no vomiting, no back or flank pain. no hematuria . she denies any GI bleeding patient was recently hospitalized , for pneumonia , and acute anemia , she came in late in july of 2022, with abnormal hemoglobin requiring blood transufsion , endoscopy showed esophagitis , and hemorrhoids , and trasnverse colon adenoma. due to persistent shortness of breath then, pulmonary did a bronchoscopy, BAL showed HSV1 positive, ID did not think its the cause of her symptoms , all other tests including bacterial fungal and AFB were negative , she was eventually discharged on short course of levoflox and flagyl with a prednisone taper ,she reports she was doing well initially up until 2 days ago as mentioned above Review of Systems Pertinent positives as noted in HPI. All other systems were reviewed and are negative Past Medical History Past Medical History: Blood Disorder, COPD, Pneumonia Additional Past Medical History / Comment(s): Myelodysplastic syndrome ., Neutropenia., macrocytosis., iron deficiency anemia- hx iron transfusions., emphysema., hospitalized at [facility] 07/16 to 07/27/22 - egd & colonoscopy done showing erosive esophagitis, hiatal hernia, diverticulitis, hemorrhoids, colon polyp., bronchoscopy 07/21/22 ., pneumonia, she received 3 blood transfusions., oxygen at 2L. History of Any Multi-Drug Resistant Organisms: None Reported Past Surgical History: No Surgical Hx Reported Additional Past Surgical History / Comment(s): TEETH PULLED, COLONOSCOPY, EGD, BRONCHOSCOPY Past Anesthesia/Blood Transfusion Reactions: No Reported Reaction Additional Past Anesthesia/Blood Transfusion Reaction / Comment(s): unknown family hx-pt is adopted, no children Past Psychological History: Anxiety Smoking Status: Former smoker Past Alcohol Use History: None Reported Past Drug Use History: Marijuana - Past Family History Father History Unknown: Yes Additional Family Medical History / Comment(s): unknown, adopted at Mother History Unknown: Yes Additional Family Medical History / Comment(s): unknown, adopted at Medications and Allergies Home Medications Medication Instructions Recorded Confirmed Type ALPRAZolam [Xanax] 0.25 mg PO BID 07/16/22 08/25/22 History Ascorbic Acid [Vitamin C] 500 mg PO DAILY 07/16/22 08/25/22 History Cyanocobalamin (Vitamin B-12) 5,000 mcg PO DAILY 07/16/22 08/25/22 History [Vitamin B-12] Pantoprazole [Protonix] 40 mg PO AC-BID #60 tab 07/26/22 08/25/22 Rx Albuterol Inhaler [Ventolin Hfa 1 - 2 puff INHALATION Q6H PRN 08/16/22 08/25/22 History Inhaler] Albuterol Nebulized [Ventolin 2.5 mg INHALATION RT-QID 08/16/22 08/25/22 History Nebulized] Folic Acid 1 mg PO DAILY 08/16/22 08/25/22 History Ferrous Sulfate [Slow Fe] 142 mg PO DAILY 08/25/22 08/25/22 History Tiotropium [place] [Spiriva] 1 puff IH RT-DAILY 08/25/22 08/25/22 History predniSONE See Taper PO DAILY 08/25/22 08/25/22 History Allergies Allergy/AdvReac Type Severity Reaction Status Date / Time ferumoxytol Allergy Severe Rash/Hives Verified 08/25/22 15:57 Physical Exam Vitals: Vital Signs Temp Pulse Resp BP Pulse Ox 08/25/22 19:24 142 H 24 109/61 96 08/25/22 16:01 151 H 22 117/87 100 08/25/22 14:59 98.1 F 150 H 40 H 146/84 98 Intake and Output 08/25/22 08/25/22 08/25/22 06:59 14:59 22:59 Other: Weight 61.235 kg Constitutional: tachypnic , short of breath Eyes: Anicteric sclerae, moist conjunctiva, cinical pallor Pupils equal round reactive to light ENMT: NC/AT Oropharynx clear, no erythema, or exudates Neck: Supple, no masses, or JVD No carotid bruits No thyromegaly Lungs: good breath sounds bilaterally , no wheezing Clear to percussion patient is tachypnic with shallow breathing Cardiovascular: Heart irregular in rate and rhythm, No murmurs, gallops, or rubs No peripheral edema Abdominal: Soft Nontender, no guarding, rebound or rigidity Abdomen moving with respiration Normoactive bowel sounds No hepatomegaly, No splenomegaly No palpable mass No abdominal wall hernia noted Skin: Normal temperature, tone, texture, turgor No induration No subcutaneous nodules No rash, lesions No ulcers Extremities: No digital cyanosis No clubbing Pedal pulses intact and symmetrical Radial pulses intact and symmetrical No calf tenderness Psychiatric: Alert and oriented to person, place and time Appropriate affect fair judgment Neuro Muscles Strength 4/5 in all 4 extremities Sensation to light touch grossly present throughout Cranial nerves II-XII grossly intact Lymphatics: no palpable cervical or supraclavicular lymph nodes Results CBC & Chem 7: 08/25/22 15:45 08/25/22 15:45 Labs: Abnormal Lab Results - Last 24 Hours (Table) 08/25/22 08/25/22 08/25/22 Range/Units 15:45 15:45 15:45 RBC 2.73 L (3.80-5.40) m/uL Hgb 8.5 L D (11.4-16.0) gm/dL Hct 27.6 L (34.0-46.0) % MCV 101.0 H (80.0-100.0) fL MCHC 30.8 L (31.0-37.0) g/dL RDW 23.9 H (11.5-15.5) % Lymphocytes # (Manual) 0.36 L (1.0-4.8) k/uL Nucleated RBCs 7 H (0-0) /100 WBC Macrocytosis Marked A APTT 21.5 L (22.0-30.0) sec D-Dimer 1.31 H (<0.60) mg/L FEU Carbon Dioxide 21 L (22-30) mmol/L BUN 41 H (7-17) mg/dL Glucose 123 H (74-99) mg/dL Plasma Lactic Acid Alex (0.7-2.0) mmol/L Calcium 8.0 L (8.4-10.2) mg/dL AST 56 H (14-36) U/L Total Protein 6.1 L (6.3-8.2) g/dL Albumin 3.2 L (3.5-5.0) g/dL 08/25/22 08/25/22 Range/Units 15:45 17:59 RBC (3.80-5.40) m/uL Hgb (11.4-16.0) gm/dL Hct (34.0-46.0) % MCV (80.0-100.0) fL MCHC (31.0-37.0) g/dL RDW (11.5-15.5) % Lymphocytes # (Manual) (1.0-4.8) k/uL Nucleated RBCs (0-0) /100 WBC Macrocytosis APTT (22.0-30.0) sec D-Dimer (<0.60) mg/L FEU Carbon Dioxide (22-30) mmol/L BUN (7-17) mg/dL Glucose (74-99) mg/dL Plasma Lactic Acid Alex 3.6 H* 2.8 H* (0.7-2.0) mmol/L Calcium (8.4-10.2) mg/dL AST (14-36) U/L Total Protein (6.3-8.2) g/dL Albumin (3.5-5.0) g/dL Assessment and Plan Assessment: 62 year old female with MDS, gi bleeding , coming in for SOB and palpitations , I discussed the case with ED doc, I accepted the admission for sepsis secondary to pneumonia and new onset afib with RVR. with anticipated length of stay > 2 midnights sepsis left upper lobe pneumonia rule out UTI new onset afib with RVR dehydration , lactic acidosis plan follow up cultures initiated on azithromycin 500 mg IVPB daily for 3 days , vanco dosing by pharmacy and zosyn 3.375 mg TID IVPB acute respiratory viral panel negative check urine legionella antigen tylenol for fever check urinalysis and culture , patient reported occasional dysuria over past week d dimer was elevated , CTA of the chest showed no acute PE, but did show multifocal airspace centrilobular emphysema and left upper lung worsening mass/consolidation suggesting a follow up in 4-6 weeks to confirm resolution incidental finding of indeterminate left adrenal nodule , suggesting follow up with adrenal protocol MRI check echocardiogram cardiology consult for the new onset afib. 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
[2022-08-26] MEDS ORDERED: HEPARIN SODIUM,PORCINE/PF 5,000 UNIT/0.5 ML SYRINGE SQ SCH
[2022-08-26] MEDS ORDERED: PIPERACILLIN-TAZOBACTAM 3.375 GM in SODIUM CHLORIDE 0.9% 100 ML IVPB SCH (04:00)
[2022-08-26 04:19] LABS: INR 0.9 (<1.2)
[2022-08-26 05:50] LABS: Anisocytosis Marked; Basophils % (A) 1 %; Eosinophils % (A) 1 %; Hypochromasia Marked; Lymphocytes # (A) 0.1 k/uL (1.0-4.8); Lymphocytes % (A) 2 %; MCH 30.4 pg (25.0-35.0); MCHC 29.9 g/dL (31.0-37.0); MCV 101.6 fL (80.0-100.0); Macrocytosis Marked; Mean Platelet Volume 14.6; Monocytes # (A) 0.1 k/uL (0-1.0); Monocytes % (A) 1 %; Neutrophils # (A) 4.3 k/uL (1.3-7.7); Neutrophils % (A) 93 %; Platelet Count 121 k/uL (150-450); Poikilocytosis Slight; RBC 1.72 m/uL (3.80-5.40); RDW 24.2 % (11.5-15.5); WBC 4.6 k/uL (3.8-10.6)
[2022-08-26 06:01] LABS: HGB 5.2 gm/dL (11.4-16.0)
[2022-08-26 06:02] LABS: HCT 17.5 % (34.0-46.0)
--- NOTE | 2022-08-26 06:26 | P.CNPUL ---
History of Present Illness Consult date: 08/26/22 Requesting physician: Bright Hubbard Reason for consult: pneumonia Chief complaint: Shortness of breath starting Tuesday History of present illness: I'm seeing this patient in new consultation today 08/26/2022 in regard to some shortness of breath that started on Tuesday, approximately 2 days ago. This is a pleasant 62-year-old female with past medical history of severe emphysema with an FEV1 that is 37% of predicted, chronic hypoxic respiratory failure on 2 L home O2, heavy ex-smoker, chronic anemia, and myelodysplastic syndrome. Patient's primary care provider is Dr. Cordero out of [place]. Patient does follow with Dr. Ayala in the office. She normally manages her COPD with a combination of Spiriva and albuterol. She has had a recent bronchoscopy during an admission for pneumonia in late July,. A bronchoscopy with transbronchial biopsy of the right lower lobe and washing/lavage of right lower lobe and left lower lobe was also performed on 08/18/2022 because of persistent diffuse reticulonodular infiltrates of bilateral lower lobes. BAL cultures from this procedure did not show any pathological organisms. Right lower lobe bronchial biopsy showed benign bronchial mucosa and alveolar tissue with prominent submucosal and interstitial cholesterol clefts associated with foamy histocytes and foreign body reaction. This suggests the possibility of a lipoid pneumonia or obstructive pneumonia. Anyway, approximately 2 days ago, patient started to develop some shortness of breath with an associated productive cough with small amounts hemoptysis, fevers, chills, and chest pain with coughing. Patient also started having palpitations that were worse with activity. Patient's meal on wheels provider ultimately ended up calling EMS. Chest x-ray on arrival showed a new left upper lobe masslike pneumonic consolidation with the chronic parenchymal changes that were seen on previous examinations in bilateral lower lobes. Patient's d-dimer was elevated on admission, and a follow up chest CTA showed no evidence of pulmonary embolism. It did redemonstrate the multifocal airspace disease with background moderate centrilobular emphysema. There also was in indeterminate left adrenal nodule which could represent a benign lipid rich adrenal adenoma, but follow-up was recommended. Patient was admitted to the cardiac stepdown unit. Patient did go into new onset atrial fibrillation with rapid ventricular rate. Cardiology is managing with Cardizem at 5 mg per hour. Patient is also on a low dose heparin infusion at 735 units per hour. Heart rate is still uncontrolled, and is ranging from 110-130 bpm. Patient is currently in bed, in some mild respiratory distress, speaking in phrases. She is on BiPAP settings IPAP 12/ EPAP 6 with a FiO2 50%. She is oxygenating 100% on these settings. Blood and sputum cultures were ordered. Urine Legionella culture is pending. Patient is empirically receiving a combination of azithromycin, vancomycin, and Zosyn. Lactic acid level was elevated on admission at 3.6 and is down to 1.5 currently. Patient has received a total of 2 L normal saline bolus. Patient was negative for influenza, RSV, COVID-19. CBC on arrival showed a WBC count of 5.2, hemoglobin 8.5, hematocrit 27.6. BMP was unremarkable. Normal saline is infusing at KVO. NT proBNP was slightly elevated at 1940. Troponin negative 1. Patient is currently receiving bronchodilators. Vital signs are stable at the moment. Review of Systems REVIEW OF SYSTEMS: CONSTITUTIONAL: Denies any recent significant weight loss or weight gain. EYES: Denies change in vision. EARS, NOSE, MOUTH, THROAT: Denies headaches, denies sore throat. CARDIOVASCULAR: Denies chest pain, palpitations or syncopal episodes. RESPIRATORY: See HPI GASTROINTESTINAL: Denies change in appetite, abdominal pain, nausea and vomiting, or diarrhea GENITOURINARY: Denies hematuria, denies infections. MUSKULOSKELETAL: Denies pain, denies swelling. INTEGUMENTARY: Denies rash, denies eczema. NEUROLOGICAL: Denies recent memory loss, no recent seizure activity. PSYCHIATRIC: Denies anxiety, denies depression. HEMATOLOGIC/LYMPHATIC: Denies anemia, denies enlarged lymph node ROS unobtainable: due to endotracheal tube Past Medical History Past Medical History: Blood Disorder, COPD, Pneumonia Additional Past Medical History / Comment(s): Myelodysplastic syndrome ., Neutropenia., macrocytosis., iron deficiency anemia- hx iron transfusions., emphysema., hospitalized at [facility] 07/16 to 07/27/22 - egd & colonoscopy done showing erosive esophagitis, hiatal hernia, diverticulitis, hemorrhoids, colon polyp., bronchoscopy 07/21/22 ., pneumonia, she received 3 blood transfusions., oxygen at 2L. History of Any Multi-Drug Resistant Organisms: None Reported Past Surgical History: No Surgical Hx Reported Additional Past Surgical History / Comment(s): TEETH PULLED, COLONOSCOPY, EGD, BRONCHOSCOPY Past Anesthesia/Blood Transfusion Reactions: No Reported Reaction Additional Past Anesthesia/Blood Transfusion Reaction / Comment(s): unknown family hx-pt is adopted, no children Past Psychological History: Anxiety Smoking Status: Former smoker Past Alcohol Use History: None Reported Past Drug Use History: Marijuana - Past Family History Father History Unknown: Yes Additional Family Medical History / Comment(s): unknown, adopted at Mother History Unknown: Yes Additional Family Medical History / Comment(s): unknown, adopted at Medications and Allergies Home Medications Medication Instructions Recorded Confirmed Type ALPRAZolam [Xanax] 0.25 mg PO BID 07/16/22 08/25/22 History Ascorbic Acid [Vitamin C] 500 mg PO DAILY 07/16/22 08/25/22 History Cyanocobalamin (Vitamin B-12) 5,000 mcg PO DAILY 07/16/22 08/25/22 History [Vitamin B-12] Pantoprazole [Protonix] 40 mg PO AC-BID #60 tab 07/26/22 08/25/22 Rx Albuterol Inhaler [Ventolin Hfa 1 - 2 puff INHALATION Q6H PRN 08/16/22 08/25/22 History Inhaler] Albuterol Nebulized [Ventolin 2.5 mg INHALATION RT-QID 08/16/22 08/25/22 History Nebulized] Folic Acid 1 mg PO DAILY 08/16/22 08/25/22 History Ferrous Sulfate [Slow Fe] 142 mg PO DAILY 08/25/22 08/25/22 History Tiotropium [place] [Spiriva] 1 puff IH RT-DAILY 08/25/22 08/25/22 History predniSONE See Taper PO DAILY 08/25/22 08/25/22 History Allergies Allergy/AdvReac Type Severity Reaction Status Date / Time ferumoxytol Allergy Severe Rash/Hives Verified 08/25/22 15:57 Physical Exam Vitals: Vital Signs Temp Pulse Pulse Resp BP BP Pulse Ox 08/26/22 05:01 08/25/22 23:45 08/25/22 21:35 98.2 F 137 H 36 H 102/64 93 L 08/25/22 20:40 135 H 24 144/99 95 08/25/22 20:14 147 H 08/25/22 20:02 151 H 08/25/22 19:24 142 H 24 109/61 96 08/25/22 16:01 151 H 22 117/87 100 08/25/22 14:59 98.1 F 150 H 40 H 146/84 98 FiO2 08/26/22 05:01 40 08/25/22 23:45 50 08/25/22 21:35 08/25/22 20:40 08/25/22 20:14 08/25/22 20:02 08/25/22 19:24 08/25/22 16:01 08/25/22 14:59 Intake and Output 08/25/22 08/25/22 08/26/22 14:59 22:59 06:59 Other: Weight 61.235 kg 58 kg GENERAL EXAM: Alert, 62-year-old female, in some mild respiratory distress HEAD: Normocephalic and atraumatic EYES: Normal reaction of pupils, equal size. NOSE: Clear with pink turbinates. THROAT: No erythema or exudates. NECK: No masses, no JVD. CHEST: No chest wall deformity. LUNGS: There is dullness heard over the left upper lobe. There is some scattered rhonchi and crackles heard posteriorly throughout. Currently on BiPAP settings 12/6 and FiO2 of 50%. Speaking in phrases. No use of accessory muscle use.. CVS: S1 and S2 normal with no audible murmur, irregular rhythm. No extra heart sounds. Heart rate is currently 122 bpm ABDOMEN: No hepatosplenomegaly, active bowel sounds, no guarding or rigidity. SPINE: No scoliosis or deformity SKIN: No rashes CENTRAL NERVOUS SYSTEM: No focal deficits, tone is normal in all 4 extremities. EXTREMITIES: There is no peripheral edema, clubbing, or cyanosis. Peripheral pulses are intact. Results - Laboratory Findings CBC and BMP: 08/25/22 15:45 08/26/22 03:23 PT/INR, D-dimer PT 10.0 sec (9.0-12.0) 08/26/22 03: INR 0.9 (<1.2) 08/26/22 03:23 D-Dimer 1.31 mg/L FEU (<0.60) H 08/25/22 15:45 Abnormal lab findings: Abnormal Labs 08/25/22 08/25/22 08/25/22 15:45 15:45 15:45 RBC 2.73 L Hgb 8.5 L D Hct 27.6 L MCV 101.0 H MCHC 30.8 L RDW 23.9 H Lymphocytes # (Manual) 0.36 L Nucleated RBCs 7 H Macrocytosis Marked A APTT 21.5 L D-Dimer 1.31 H Carbon Dioxide 21 L BUN 41 H Glucose 123 H Plasma Lactic Acid Alex Calcium 8.0 L AST 56 H Total Protein 6.1 L Albumin 3.2 L Crossmatch 08/25/22 08/25/22 08/25/22 15:45 15:45 17:59 RBC Hgb Hct MCV MCHC RDW Lymphocytes # (Manual) Nucleated RBCs Macrocytosis APTT D-Dimer Carbon Dioxide BUN Glucose Plasma Lactic Acid Alex 3.6 H* 2.8 H* Calcium AST Total Protein Albumin Crossmatch See Detail 08/25/22 21:41 RBC Hgb Hct MCV MCHC RDW Lymphocytes # (Manual) Nucleated RBCs Macrocytosis APTT D-Dimer Carbon Dioxide BUN Glucose Plasma Lactic Acid Alex 2.9 H* Calcium AST Total Protein Albumin Crossmatch - Diagnostic Findings Chest x-ray: image reviewed CT scan - chest: image reviewed Assessment and Plan Assessment: Left upper lobe pneumonia, sepsis. Chest x-ray on arrival showed a new left upper lobe masslike pneumonic consolidation with the chronic parenchymal changes that were seen on previous examinations in bilateral lower lobes. A follow up Chest CTA also redemonstrated the multifocal airspace disease with background moderate centrilobular emphysema. Acute COPD exacerbation secondary to above. Patient does have baseline severe emphysema with an FEV1 that is 37% of predicted. Acute on chronic hypoxic respiratory failure normally maintained on 2 L home O2. She is currently on BiPAP settings 05/11 with an FiO2 of 50% New-onset atrial fibrillation with rapid ventricular rate. Cardiology is managing with Cardizem at 5 mg per hour. Patient is also on a low-dose heparin infusion at 735 units per hour. Myelodysplastic syndrome Chronic iron deficiency anemia with history of iron transfusions. There is a left adrenal nodule that was found on chest CTA which could represent benign lipid rich adrenal adenoma, however, follow-up was recommended. Ex-smoker Plan: Patient's medications, labs, chest x-ray, chest CTA reviewed Continue BiPAP. FiO2 weaned down to 40% Continue empiric antibiotics Obtain pancultures Check legionella urine antigen Start Pulmicort and Perforomist Continue bronchodilators Start Solu-Medrol Check pro calcitonin level Echocardiogram is pending Manage atrial fibrillation per cardiology; currently receiving Cardizem and low intensity heparin infusion Incidental finding of a left adrenal nodule which may be followed up outpatient Prognosis is guarded We will continue to follow I have personally seen and examined the patient, performed the documentation and the assessment and plan as written. Number of minutes spent on the visit:20 Time with Patient: Greater than 30
[2022-08-26 06:42] LABS: Anisocytosis (M) Present; Large Platelets Present; Poikilocytosis (M) Present; Polychromasia Present
--- NOTE | 2022-08-26 07:26 | XR ---
EXAMINATION TYPE: XR chest 1V portable DATE OF EXAM: 08/26/2022 Comparison: 08/25/2022 Clinical History: 62 year-old female shortness of breath Findings: Heart normal size. Aorta within normal limits. Hyperinflation. Multifocal airspace disease persists p articularly left upper lobe and both lung bases. Left upper lobe airspace disease may be minimally le ss confluent. Impression: Overall similar COPD with multifocal airspace disease.
[2022-08-26] MEDS: BUDESONIDE 1 MG/2 ML NEBU INHALATION SCH ×2 (08:24→19:30)
[2022-08-26] MEDS: IPRATROPIUM-ALBUTEROL 3 ML NEB INHALATION SCH ×4 (08:25→19:30)
[2022-08-26] MEDS: FORMOTEROL FUMARATE 20 MCG/2 ML NEBU INHALATION SCH ×2 (08:25→19:29)
[2022-08-26] MEDS ORDERED: VERAPAMIL 80 MG TAB PO SCH (09:15)
[2022-08-26] MEDS: AZITHROMYCIN 500 MG in SODIUM CHLORIDE 0.9% 250 ML IVPB SCH (10:37)
[2022-08-26] MEDS: ALPRAZolam 0.25 MG TAB PO SCH ×2 (10:38→22:29)
[2022-08-26] MEDS: METOPROLOL TARTRATE 25 MG TAB PO SCH ×2 (10:38→22:25)
[2022-08-26] MEDS: PANTOPRAZOLE 40 MG TABLET PO SCH ×2 (10:38→18:30)
[2022-08-26 12:03] LABS: Glucose,Whole Blood 192 mg/dL (70-110)
--- NOTE | 2022-08-26 12:05 | CA ---
Transthoracic Echo Report Name: Nirmala Duque Age: 62 Gender: F : 1960 Exam Date: 08/26/2022 07:50 Exam Location: [facility] Ht (in): 62 Wt (lb): 127 Ordering Physician: Jon Gallagher MD Attending/Referring Phys: Toby Pathak MD Oracle Architect Sharlene Vitale, NELSON Procedure CPT: Indications: afib Cardiac Hx: Technical Quality: Very technically difficult study Contrast 1: Total Dose (mL): Contrast 2: Total Dose (mL): MEASUREMENTS (Male / Female) Normal Values 2D ECHO Aorta at Sinuses Diameter 3.1 cm M-MODE Aortic Root Diameter MM 3.1 cm AV Cusp Separation MM 1.3 cm DOPPLER AV Peak Velocity 161.3 cm/s AV Peak Gradient 10.4 mmHg LVOT Peak Velocity 100.5 cm/s LVOT Peak Gradient 4.0 mmHg TR Peak Velocity 270.5 cm/s TR Peak Gradient 29.3 mmHg Right Atrial Pressure 3.0 mmHg Pulmonary Artery Systolic Pressu 32.3 mmHg Right Ventricular Systolic Press 32.3 mmHg PV Peak Velocity 66.8 cm/s PV Peak Gradient 1.8 mmHg FINDINGS Left Ventricle Moderate concentric left ventricular hypertrophy. Abnormal left ventricular diastolic filling pattern. Left ventricular ejection fraction visually estimated at <45%. Right Ventricle Right ventricle not well visualized. Right ventricular systolic pressure within normal limits. Reduced right ventricular global systolic function. Right Atrium Right atrium not well visualized. Left Atrium Normal left atrial size. Mitral Valve Mild mitral regurgitation. Aortic Valve Moderate aortic regurgitation. No aortic stenosis. Tricuspid Valve Mild tricuspid regurgitation. Pulmonic Valve Structurally normal pulmonic valve. Pericardium Mild pericardial effusion. Aorta Aorta at the level of the sinuses of valsalva (root) at upper limits of normal. Ascending aorta is not well visualized. Abdominal aorta is normal. CONCLUSIONS Technically difficult study for interpretation Mildly impaired only function. The EF is around 45% Moderate concentric LVH Moderate aortic insufficiency Previewed by: Dr. Jose Antonio Reed MD (Electronically Signed) Final Date: 26 August 2022 12:04
[2022-08-26 12:15] LABS: ABG HCO3 15 mmol/L (21-25); ABG Oxygen Saturation 99.8 % (94-97); ABG PCO2 24 mmHg (35-45); ABG PH 7.42 (7.35-7.45); ABG PO2 137 mmHg (83-108); ABG TCO2 16 mmol/L (19-24); Allen Test Performed? Yes
[2022-08-26 12:38] LABS: Anisocytosis Moderate; HCT 20.2 % (34.0-46.0); Hypochromasia Marked; MCH 29.2 pg (25.0-35.0); MCHC 31.2 g/dL (31.0-37.0); MCV 93.7 fL (80.0-100.0); Macrocytosis Moderate; Mean Platelet Volume 15.5; Platelet Count 108 k/uL (150-450); Poikilocytosis Slight; RBC 2.16 m/uL (3.80-5.40); RDW 23.3 % (11.5-15.5); WBC 4.6 k/uL (3.8-10.6)
[2022-08-26 12:40] LABS: Albumin 2.1 g/dL (3.5-5.0); Total Bilirubin 1.4 mg/dL (0.2-1.3); Total Protein 4.1 g/dL (6.3-8.2)
[2022-08-26 12:44] LABS: HGB 6.3 gm/dL (11.4-16.0)
[2022-08-26 12:54] LABS: Glucose,Whole Blood 184 mg/dL (70-110)
[2022-08-26] MEDS ORDERED: VANCOMYCIN 1,250 MG in SODIUM CHLORIDE 0.9% 250 ML IVPB SCH (13:00)
[2022-08-26 13:23] LABS: Calcium 6.4 mg/dL (8.4-10.2)
[2022-08-26] MEDS ORDERED: CALCIUM GLUCONATE IN NACL 2 GM in SALINE 1 100ML.BAG IVPB ONE (13:32)
--- NOTE | 2022-08-26 13:51 | P.PN ---
Subjective Progress Note Date: 08/26/22 Hospital Course: 62 year old female with MDS, GI bleed, , COPD on 2 L oxygen at home presenting with dyspnea, palpitations, productive cough with occasional hemoptysis, chest pain. Patient was recently hospitalized for pneumonia as well as acute anemia, had a bronchoscopy at that time, patient was eventually discharged on oral antibiotics and prednisone taper. Since presenting to the ED this time, patient has been hypoxic, tachypneic, tachycardic requiring BiPAP for increased work of breathing. Patient was evaluated by pulmonology. Patient was started on IV antibiotics, steroids and bronchodilators for pneumonia as well as COPD exacerbation. CTA chest showed no PE, multifocal airspace disease with moderate emphysema, worsening left upper lobe, also incidental left adrenal nodule Subjective: Patient seen and examined at bedside. Overnight she was doing better on BiPAP, however, this morning she became hypotensive and unresponsive. She required IV fluid bolus. She denies any chest pain, worsening shortness of breath, or abdominal pain. She claims that she feels tired and lightheaded. Decision was made to transfer patient to the medical ICU. Pertinent positives and negatives as discussed above, a complete review of systems was performed and all other systems are negative. Vitals Signs Reviewed. General: In severe distress, appears older than stated age Derm: warm, dry Head: atraumatic, normocephalic, symmetric Eyes: EOMI, no lid lag, anicteric sclera Mouth: no lip lesion, mucus membranes moist Cardiovascular: S1S2 reg, no murmur Lungs: CTA bilateral, no rhonchi, no rales , no accessory muscle use Abdominal: soft, nontender to palpation, no guarding, no appreciable organomegaly Ext: no gross muscle atrophy, no edema, no contractures Neuro: CN II-XI grossly intact, no focal neuro deficits Psych: Alert, oriented, appropriate affect Data Reviewed Today: Pertinent Labs: WBC 4.6, able: 5.2, platelet 121, pH 7.42, pCO2 24, sodium 137, potassium 4, bicarb 18, creatinine 1.23, lactate 3.3, calcium 6.4 Imaging: Chest x-ray independently interpreted shows bilateral lower lobe opacities, and another opacity prominent in the left upper lobe Echocardiogram report reviewed: Mildly impaired LV function with EF 45%, moderate AI EKG independently interpreted shows sinus rhythm Assessment and Plan: Patient is critically ill, in septic shock, being transferred to medical ICU. Currently on IV fluid boluses, may need vasopressors. She is continued on BiPAP at the moment. Active: Acute on chronic hypoxic respiratory failure Septic shock secondary to left upper lobe pneumonia Acute COPD exacerbation New-onset supraventricular tachycardia Acute on chronic macrocytic anemia History of MDS History of GI bleed and iron deficiency anemia Left adrenal nodule, incidental finding Acute renal failure Lactic acidosis Hypocalcemia -Personally discussed management with pulmonology, due to worsening respiratory and hemodynamic status, patient being transferred to medical ICU -Continue azithromycin 500 mg IV daily, and ceftriaxone 2 g IV daily -Currently on bronchodilators, as well as Solu-Medrol 60 mg IV every 6 hours -Initial EKG does show P waves, likely supraventricular rhythm, possibly sinus tachycardia versus MAT -Cardiology has been consulted, patient was started on verapamil and metoprolol this morning, heparin drip was discontinued -Verapamil is now held given hypotension -Patient currently getting 2 units of PRBCs -No active bleeding at the moment. -Needs outpatient follow-up for adrenal nodule -Acute renal failure and lactic acidosis in the setting of hypotension, currently getting fluid and blood products -2 g calcium gluconate ordered DVT ppx: SCD Code status: Full code Anticipated discharge place: Pending clinical course Anticipated discharge time: Pending clincal course Objective - Vital Signs Vital signs: Vital Signs Temp 98.5 F 08/26/22 13:47 Pulse 89 08/26/22 13:47 Resp 28 H 08/26/22 13:47 BP 95/56 08/26/22 13:47 Pulse Ox 99 08/26/22 13:47 FiO2 40 08/26/22 13:00 Intake & Output 08/25/22 08/26/22 08/26/22 18:59 06:59 18:59 Intake Total 0 1620 Output Total 140 Balance 0 1480 Weight 61.235 kg 58 kg Intake: IV 1000 Sodium Chloride 0.9% 1, 1000 000 ml @ 999 mls/hr IV . Q1H1M STA Rx#:[id number] Blood Product 0 620 Rc As-1 Unit 0 310 [id number] Rc As-1 Unit 310 [id number] Output: Urine 140 - Labs CBC & Chem 7: 08/26/22 12:16 08/26/22 12:16 Labs: Abnormal Lab Results - Last 24 Hours (Table) 08/25/22 08/25/22 08/25/22 Range/Units 15:45 15:45 15:45 RBC 2.73 L (3.80-5.40) m/uL Hgb 8.5 L D (11.4-16.0) gm/dL Hct 27.6 L (34.0-46.0) % MCV 101.0 H (80.0-100.0) fL MCHC 30.8 L (31.0-37.0) g/dL RDW 23.9 H (11.5-15.5) % Plt Count (150-450) k/uL Lymphocytes # (1.0-4.8) k/uL Lymphocytes # (Manual) 0.36 L (1.0-4.8) k/uL Nucleated RBCs 7 H (0-0) /100 WBC Macrocytosis Marked A APTT 21.5 L (22.0-30.0) sec D-Dimer 1.31 H (<0.60) mg/L FEU ABG pCO2 (35-45) mmHg ABG pO2 (83-108) mmHg ABG HCO3 (21-25) mmol/L ABG Total CO2 (19-24) mmol/L ABG O2 Saturation (94-97) % Chloride (98-107) mmol/L Carbon Dioxide 21 L (22-30) mmol/L BUN 41 H (7-17) mg/dL Creatinine (0.52-1.04) mg/dL Glucose 123 H (74-99) mg/dL POC Glucose (mg/dL) (70-110) mg/dL Plasma Lactic Acid Alex (0.7-2.0) mmol/L Calcium 8.0 L (8.4-10.2) mg/dL Total Bilirubin (0.2-1.3) mg/dL AST 56 H (14-36) U/L Total Protein 6.1 L (6.3-8.2) g/dL Albumin 3.2 L (3.5-5.0) g/dL Crossmatch 08/25/22 08/25/22 08/25/22 Range/Units 15:45 15:45 17:59 RBC (3.80-5.40) m/uL Hgb (11.4-16.0) gm/dL Hct (34.0-46.0) % MCV (80.0-100.0) fL MCHC (31.0-37.0) g/dL RDW (11.5-15.5) % Plt Count (150-450) k/uL Lymphocytes # (1.0-4.8) k/uL Lymphocytes # (Manual) (1.0-4.8) k/uL Nucleated RBCs (0-0) /100 WBC Macrocytosis APTT (22.0-30.0) sec D-Dimer (<0.60) mg/L FEU ABG pCO2 (35-45) mmHg ABG pO2 (83-108) mmHg ABG HCO3 (21-25) mmol/L ABG Total CO2 (19-24) mmol/L ABG O2 Saturation (94-97) % Chloride (98-107) mmol/L Carbon Dioxide (22-30) mmol/L BUN (7-17) mg/dL Creatinine (0.52-1.04) mg/dL Glucose (74-99) mg/dL POC Glucose (mg/dL) (70-110) mg/dL Plasma Lactic Acid Alex 3.6 H* 2.8 H* (0.7-2.0) mmol/L Calcium (8.4-10.2) mg/dL Total Bilirubin (0.2-1.3) mg/dL AST (14-36) U/L Total Protein (6.3-8.2) g/dL Albumin (3.5-5.0) g/dL Crossmatch See Detail 08/25/22 08/26/22 08/26/22 Range/Units 21:41 05:18 11:52 RBC 1.72 L (3.80-5.40) m/uL Hgb 5.2 L* D (11.4-16.0) gm/dL Hct 17.5 L* (34.0-46.0) % MCV 101.6 H (80.0-100.0) fL MCHC 29.9 L (31.0-37.0) g/dL RDW 24.2 H (11.5-15.5) % Plt Count 121 L (150-450) k/uL Lymphocytes # 0.1 L (1.0-4.8) k/uL Lymphocytes # (Manual) (1.0-4.8) k/uL Nucleated RBCs (0-0) /100 WBC Macrocytosis Marked A APTT (22.0-30.0) sec D-Dimer (<0.60) mg/L FEU ABG pCO2 (35-45) mmHg ABG pO2 (83-108) mmHg ABG HCO3 (21-25) mmol/L ABG Total CO2 (19-24) mmol/L ABG O2 Saturation (94-97) % Chloride (98-107) mmol/L Carbon Dioxide (22-30) mmol/L BUN (7-17) mg/dL Creatinine (0.52-1.04) mg/dL Glucose (74-99) mg/dL POC Glucose (mg/dL) 192 H (70-110) mg/dL Plasma Lactic Acid Alex 2.9 H* (0.7-2.0) mmol/L Calcium (8.4-10.2) mg/dL Total Bilirubin (0.2-1.3) mg/dL AST (14-36) U/L Total Protein (6.3-8.2) g/dL Albumin (3.5-5.0) g/dL Crossmatch 08/26/22 08/26/22 08/26/22 Range/Units 12:12 12:16 12:16 RBC (3.80-5.40) m/uL Hgb (11.4-16.0) gm/dL Hct (34.0-46.0) % MCV (80.0-100.0) fL MCHC (31.0-37.0) g/dL RDW (11.5-15.5) % Plt Count (150-450) k/uL Lymphocytes # (1.0-4.8) k/uL Lymphocytes # (Manual) (1.0-4.8) k/uL Nucleated RBCs (0-0) /100 WBC Macrocytosis APTT (22.0-30.0) sec D-Dimer (<0.60) mg/L FEU ABG pCO2 24 L (35-45) mmHg ABG pO2 137 H (83-108) mmHg ABG HCO3 15 L (21-25) mmol/L ABG Total CO2 16 L (19-24) mmol/L ABG O2 Saturation 99.8 H (94-97) % Chloride 109 H (98-107) mmol/L Carbon Dioxide 18 L (22-30) mmol/L BUN 41 H (7-17) mg/dL Creatinine 1.23 H (0.52-1.04) mg/dL Glucose 162 H (74-99) mg/dL POC Glucose (mg/dL) (70-110) mg/dL Plasma Lactic Acid Alex 3.3 H* (0.7-2.0) mmol/L Calcium 6.4 L* (8.4-10.2) mg/dL Total Bilirubin 1.4 H (0.2-1.3) mg/dL AST (14-36) U/L Total Protein 4.1 L (6.3-8.2) g/dL Albumin 2.1 L (3.5-5.0) g/dL Crossmatch 08/26/22 08/26/22 Range/Units 12:16 12:53 RBC 2.16 L (3.80-5.40) m/uL Hgb 6.3 L* (11.4-16.0) gm/dL Hct 20.2 L (34.0-46.0) % MCV (80.0-100.0) fL MCHC (31.0-37.0) g/dL RDW 23.3 H (11.5-15.5) % Plt Count 108 L (150-450) k/uL Lymphocytes # (1.0-4.8) k/uL Lymphocytes # (Manual) (1.0-4.8) k/uL Nucleated RBCs (0-0) /100 WBC Macrocytosis APTT (22.0-30.0) sec D-Dimer (<0.60) mg/L FEU ABG pCO2 (35-45) mmHg ABG pO2 (83-108) mmHg ABG HCO3 (21-25) mmol/L ABG Total CO2 (19-24) mmol/L ABG O2 Saturation (94-97) % Chloride (98-107) mmol/L Carbon Dioxide (22-30) mmol/L BUN (7-17) mg/dL Creatinine (0.52-1.04) mg/dL Glucose (74-99) mg/dL POC Glucose (mg/dL) 184 H (70-110) mg/dL Plasma Lactic Acid Alex (0.7-2.0) mmol/L Calcium (8.4-10.2) mg/dL Total Bilirubin (0.2-1.3) mg/dL AST (14-36) U/L Total Protein (6.3-8.2) g/dL Albumin (3.5-5.0) g/dL Crossmatch
[2022-08-26] MEDS: methylPREDNISolone SOD SUCCI 125 MG/2 ML VIAL IV SCH ×3 (13:58→23:07)
--- NOTE | 2022-08-26 14:36 | P.CONS ---
History of Present Illness - Reason for Consult Consult date: 08/26/22 anemia Requesting physician: Olivia Cotter - Chief Complaint SOB - History of Present Illness Patient is a 62-year-old female, well known to our service. She is followed by Dr. Pathak in the office for a history of multifactorial anemia, and bicytopenia. She was hospitalized last month for anemia, after hgb was found to be 5.8 in clinic, and was admitted and received blood transfusions and IV iron. Patient presented to the ER for progressing SOB over the last 4 days. She also reports cough x 6 days with come bloody phlegm. She reports cough started after bronchoscopy she had 6 days ago outpatient with Dr. Dumont who was evaluating her for bilateral infiltrates. Biopsy obtained was negative for malignancy. Pt denies dizziness, CP, abdominal pain, blood in stool, melena, and hematura. CXR showed MIGUEL pneumonia, pulmonology following, on IV abx Hematology history: Patient was seen by our practice in early 2020 for anemia/pancytopenia. Counts were trended and it was noted that with acute illness they would drop. Pt did report a past Hx of heavy EOTH use so, this was felt to contribute to the weak marrow response during stress. She did have EGD/colon 08/24, no unusual findings to account for iron def. She had BM bx 04/26 revealing low grade MDS. She received iron and was treated with ANNMARIE and her Hgb improved to normal, Hgb in ofc 10/13/21 was 13.1, 11-12 in 02/25, 9-10 in -05/27. she has not required a blood transfusion since 08/24, prior to admission from last month 07/29. Most recent IV iron was administered last month, while inpatient. In f/u in office on 08/12/22, hgb was 9.8. Plan is to f/u with Dr. Pathka in approx 4 weeks to discuss possible BM biopsy Review of Systems 10 point ROS is negative except as stated in HPI Past Medical History Past Medical History: Blood Disorder, COPD, Pneumonia Additional Past Medical History / Comment(s): Myelodysplastic syndrome ., Neutropenia., macrocytosis., iron deficiency anemia- hx iron transfusions., emphysema., hospitalized at [facility] 07/16 to 07/27/22 - egd & colonoscopy done showing erosive esophagitis, hiatal hernia, diverticulitis, hemorrhoids, colon polyp., bronchoscopy 07/21/22 ., pneumonia, she received 3 blood transfusions., oxygen at 2L. History of Any Multi-Drug Resistant Organisms: None Reported Past Surgical History: No Surgical Hx Reported Additional Past Surgical History / Comment(s): TEETH PULLED, COLONOSCOPY, EGD, BRONCHOSCOPY Past Anesthesia/Blood Transfusion Reactions: No Reported Reaction Additional Past Anesthesia/Blood Transfusion Reaction / Comm: unknown family hx- pt is adopted, no children Past Psychological History: Anxiety Smoking Status: Former smoker Past Alcohol Use History: None Reported Past Drug Use History: Marijuana - Past Family History Father History Unknown: Yes Additional Family Medical History / Comment(s): unknown, adopted at Mother History Unknown: Yes Additional Family Medical History / Comment(s): unknown, adopted at Medications and Allergies Home Medications Medication Instructions Recorded Confirmed Type ALPRAZolam [Xanax] 0.25 mg PO BID 07/16/22 08/25/22 History Ascorbic Acid [Vitamin C] 500 mg PO DAILY 07/16/22 08/25/22 History Cyanocobalamin (Vitamin B-12) 5,000 mcg PO DAILY 07/16/22 08/25/22 History [Vitamin B-12] Pantoprazole [Protonix] 40 mg PO AC-BID #60 tab 07/26/22 08/25/22 Rx Albuterol Inhaler [Ventolin Hfa 1 - 2 puff INHALATION Q6H PRN 08/16/22 08/25/22 History Inhaler] Albuterol Nebulized [Ventolin 2.5 mg INHALATION RT-QID 08/16/22 08/25/22 History Nebulized] Folic Acid 1 mg PO DAILY 08/16/22 08/25/22 History Ferrous Sulfate [Slow Fe] 142 mg PO DAILY 08/25/22 08/25/22 History Tiotropium [place] [Spiriva] 1 puff IH RT-DAILY 08/25/22 08/25/22 History predniSONE See Taper PO DAILY 08/25/22 08/25/22 History Allergies Allergy/AdvReac Type Severity Reaction Status Date / Time ferumoxytol Allergy Severe Rash/Hives Verified 08/25/22 15:57 Physical Exam Vitals: Vital Signs Temp Pulse Pulse Resp BP BP Pulse Ox 08/26/22 13:00 98 F 87 32 H 86/55 98 08/26/22 12:54 90 31 H 98 08/26/22 11:50 98.4 F 89 16 74/58 100 08/26/22 11:45 98.4 F 92 20 74/58 100 08/26/22 11:25 98.0 F 98 20 95/67 08/26/22 11:15 98.1 F 110 H 22 115/68 96 08/26/22 09:50 99.1 F 110 H 20 131/85 100 08/26/22 08:30 134 H 08/26/22 08:28 99 08/26/22 08:26 08/26/22 07:21 98.6 F 134 H 33 H 133/84 100 08/26/22 06:54 98.2 F 138 H 32 H 122/83 08/26/22 06:53 98.2 F 139 H 29 H 122/83 100 08/26/22 06:34 98.1 F 136 H 33 H 118/81 08/26/22 06:24 98.4 F 132 H 41 H 115/65 100 08/26/22 05:01 08/26/22 04:00 97.8 F 118 H 33 H 125/78 100 08/26/22 00:00 98.3 F 142 H 30 H 118/77 94 L 08/25/22 23:45 08/25/22 21:35 98.2 F 137 H 36 H 102/64 93 L 08/25/22 20:40 135 H 24 144/99 95 08/25/22 20:14 147 H 08/25/22 20:02 151 H 08/25/22 19:24 142 H 24 109/61 96 08/25/22 16:01 151 H 22 117/87 100 08/25/22 14:59 98.1 F 150 H 40 H 146/84 98 FiO2 08/26/22 13:00 40 08/26/22 12:54 08/26/22 11:50 08/26/22 11:45 08/26/22 11:25 08/26/22 11:15 08/26/22 09:50 08/26/22 08:30 08/26/22 08:28 08/26/22 08:26 40 08/26/22 07:21 40 08/26/22 06:54 08/26/22 06:53 08/26/22 06:34 08/26/22 06:24 08/26/22 05:01 40 08/26/22 04:00 08/26/22 00:00 08/25/22 23:45 50 08/25/22 21:35 08/25/22 20:40 08/25/22 20:14 08/25/22 20:02 08/25/22 19:24 08/25/22 16:01 08/25/22 14:59 Intake and Output 08/25/22 08/26/22 08/26/22 22:59 06:59 14:59 Intake Total 0 1310 Output Total 140 Balance 0 1170 Intake: IV 1000 Sodium Chloride 0.9% 1, 1000 000 ml @ 999 mls/hr IV . Q1H1M STA Rx#:[id number] Blood Product 0 310 Rc As-1 Unit 0 310 [id number] Rc As-1 Unit 0 [id number] Output: Urine 140 Other: Weight 58 kg - Constitutional General appearance: average body habitus, mild distress - EENT Eyes: anicteric sclerae, EOMI ENT: hearing grossly normal - Respiratory breathing moderately labored, with accessory muscle use Respiratory: bilateral: diminished - Cardiovascular Rhythm: regular Heart sounds: normal: S1, S2 Abnormal Heart Sounds: no systolic murmur, no diastolic murmur, no rub, no S3 Gallop, no S4 Gallop, no click, no other leg Peripheral Edema: bilateral: None - Gastrointestinal General gastrointestinal: soft, tenderness Localized gastrointestinal: tender: RUQ, LUQ, epigastric periumbilical - Integumentary Integumentary: pale - Neurologic lethargic, generalized weakness - Musculoskeletal Musculoskeletal: generalized weakness - Psychiatric Psychiatric: A&O x's 3 Results CBC & Chem 7: 08/26/22 12:16 08/26/22 12:16 Labs: Abnormal Lab Results - Last 24 Hours (Table) 08/25/22 08/25/22 08/25/22 Range/Units 15:45 15:45 15:45 RBC 2.73 L (3.80-5.40) m/uL Hgb 8.5 L D (11.4-16.0) gm/dL Hct 27.6 L (34.0-46.0) % MCV 101.0 H (80.0-100.0) fL MCHC 30.8 L (31.0-37.0) g/dL RDW 23.9 H (11.5-15.5) % Plt Count (150-450) k/uL Lymphocytes # (1.0-4.8) k/uL Lymphocytes # (Manual) 0.36 L (1.0-4.8) k/uL Nucleated RBCs 7 H (0-0) /100 WBC Macrocytosis Marked A APTT 21.5 L (22.0-30.0) sec D-Dimer 1.31 H (<0.60) mg/L FEU ABG pCO2 (35-45) mmHg ABG pO2 (83-108) mmHg ABG HCO3 (21-25) mmol/L ABG Total CO2 (19-24) mmol/L ABG O2 Saturation (94-97) % Chloride (98-107) mmol/L Carbon Dioxide 21 L (22-30) mmol/L BUN 41 H (7-17) mg/dL Creatinine (0.52-1.04) mg/dL Glucose 123 H (74-99) mg/dL POC Glucose (mg/dL) (70-110) mg/dL Plasma Lactic Acid Alex (0.7-2.0) mmol/L Calcium 8.0 L (8.4-10.2) mg/dL Total Bilirubin (0.2-1.3) mg/dL AST 56 H (14-36) U/L Total Protein 6.1 L (6.3-8.2) g/dL Albumin 3.2 L (3.5-5.0) g/dL Crossmatch 08/25/22 08/25/22 08/25/22 Range/Units 15:45 15:45 17:59 RBC (3.80-5.40) m/uL Hgb (11.4-16.0) gm/dL Hct (34.0-46.0) % MCV (80.0-100.0) fL MCHC (31.0-37.0) g/dL RDW (11.5-15.5) % Plt Count (150-450) k/uL Lymphocytes # (1.0-4.8) k/uL Lymphocytes # (Manual) (1.0-4.8) k/uL Nucleated RBCs (0-0) /100 WBC Macrocytosis APTT (22.0-30.0) sec D-Dimer (<0.60) mg/L FEU ABG pCO2 (35-45) mmHg ABG pO2 (83-108) mmHg ABG HCO3 (21-25) mmol/L ABG Total CO2 (19-24) mmol/L ABG O2 Saturation (94-97) % Chloride (98-107) mmol/L Carbon Dioxide (22-30) mmol/L BUN (7-17) mg/dL Creatinine (0.52-1.04) mg/dL Glucose (74-99) mg/dL POC Glucose (mg/dL) (70-110) mg/dL Plasma Lactic Acid Alex 3.6 H* 2.8 H* (0.7-2.0) mmol/L Calcium (8.4-10.2) mg/dL Total Bilirubin (0.2-1.3) mg/dL AST (14-36) U/L Total Protein (6.3-8.2) g/dL Albumin (3.5-5.0) g/dL Crossmatch See Detail 08/25/22 08/26/22 08/26/22 Range/Units 21:41 05:18 11:52 RBC 1.72 L (3.80-5.40) m/uL Hgb 5.2 L* D (11.4-16.0) gm/dL Hct 17.5 L* (34.0-46.0) % MCV 101.6 H (80.0-100.0) fL MCHC 29.9 L (31.0-37.0) g/dL RDW 24.2 H (11.5-15.5) % Plt Count 121 L (150-450) k/uL Lymphocytes # 0.1 L (1.0-4.8) k/uL Lymphocytes # (Manual) (1.0-4.8) k/uL Nucleated RBCs (0-0) /100 WBC Macrocytosis Marked A APTT (22.0-30.0) sec D-Dimer (<0.60) mg/L FEU ABG pCO2 (35-45) mmHg ABG pO2 (83-108) mmHg ABG HCO3 (21-25) mmol/L ABG Total CO2 (19-24) mmol/L ABG O2 Saturation (94-97) % Chloride (98-107) mmol/L Carbon Dioxide (22-30) mmol/L BUN (7-17) mg/dL Creatinine (0.52-1.04) mg/dL Glucose (74-99) mg/dL POC Glucose (mg/dL) 192 H (70-110) mg/dL Plasma Lactic Acid Alex 2.9 H* (0.7-2.0) mmol/L Calcium (8.4-10.2) mg/dL Total Bilirubin (0.2-1.3) mg/dL AST (14-36) U/L Total Protein (6.3-8.2) g/dL Albumin (3.5-5.0) g/dL Crossmatch 08/26/22 08/26/22 08/26/22 Range/Units 12:12 12:16 12:16 RBC (3.80-5.40) m/uL Hgb (11.4-16.0) gm/dL Hct (34.0-46.0) % MCV (80.0-100.0) fL MCHC (31.0-37.0) g/dL RDW (11.5-15.5) % Plt Count (150-450) k/uL Lymphocytes # (1.0-4.8) k/uL Lymphocytes # (Manual) (1.0-4.8) k/uL Nucleated RBCs (0-0) /100 WBC Macrocytosis APTT (22.0-30.0) sec D-Dimer (<0.60) mg/L FEU ABG pCO2 24 L (35-45) mmHg ABG pO2 137 H (83-108) mmHg ABG HCO3 15 L (21-25) mmol/L ABG Total CO2 16 L (19-24) mmol/L ABG O2 Saturation 99.8 H (94-97) % Chloride 109 H (98-107) mmol/L Carbon Dioxide 18 L (22-30) mmol/L BUN 41 H (7-17) mg/dL Creatinine 1.23 H (0.52-1.04) mg/dL Glucose 162 H (74-99) mg/dL POC Glucose (mg/dL) (70-110) mg/dL Plasma Lactic Acid Alex 3.3 H* (0.7-2.0) mmol/L Calcium 6.4 L* (8.4-10.2) mg/dL Total Bilirubin 1.4 H (0.2-1.3) mg/dL AST (14-36) U/L Total Protein 4.1 L (6.3-8.2) g/dL Albumin 2.1 L (3.5-5.0) g/dL Crossmatch 08/26/22 08/26/22 Range/Units 12:16 12:53 RBC 2.16 L (3.80-5.40) m/uL Hgb 6.3 L* (11.4-16.0) gm/dL Hct 20.2 L (34.0-46.0) % MCV (80.0-100.0) fL MCHC (31.0-37.0) g/dL RDW 23.3 H (11.5-15.5) % Plt Count 108 L (150-450) k/uL Lymphocytes # (1.0-4.8) k/uL Lymphocytes # (Manual) (1.0-4.8) k/uL Nucleated RBCs (0-0) /100 WBC Macrocytosis APTT (22.0-30.0) sec D-Dimer (<0.60) mg/L FEU ABG pCO2 (35-45) mmHg ABG pO2 (83-108) mmHg ABG HCO3 (21-25) mmol/L ABG Total CO2 (19-24) mmol/L ABG O2 Saturation (94-97) % Chloride (98-107) mmol/L Carbon Dioxide (22-30) mmol/L BUN (7-17) mg/dL Creatinine (0.52-1.04) mg/dL Glucose (74-99) mg/dL POC Glucose (mg/dL) 184 H (70-110) mg/dL Plasma Lactic Acid Alex (0.7-2.0) mmol/L Calcium (8.4-10.2) mg/dL Total Bilirubin (0.2-1.3) mg/dL AST (14-36) U/L Total Protein (6.3-8.2) g/dL Albumin (3.5-5.0) g/dL Crossmatch Chest x-ray: report reviewed CT scan - chest: report reviewed Assessment and Plan (1) Anemia Current Visit: Yes Status: Acute Priority: High Code(s): D64.9 - ANEMIA, UNSPECIFIED SNOMED Code(s): 075730552 (2) MDS (myelodysplastic syndrome), low grade Current Visit: Yes Status: Chronic Priority: High Code(s): D46.20 - REFRACTORY ANEMIA WITH EXCESS OF BLASTS, UNSPECIFIED SNOMED Code(s): 785587777 Plan: Anemia: -Hemoglobin 5.2. 2 units PRBCs ordered -Will check iron studies on pre-transfusion blood -Pt denies any episodes of bleeding or melena -Anemia likely r/t infectious process, as in the past pt has shown to become significantly anemic during infectious processes -Will continue to monitor CBC -Please transfused for hgb less than 7 or if symptomatic MDS: -Progressive decrease in blood counts since May, anemia showing the most change. -It was previously discussed with pt that another bone marrow would be reasonable if no other cause for decreasing counts identified. This was discussed with patient. She is agreeable to the same. F/u planned in [address] Pathak to further discuss potential BM biopsy
[2022-08-26 14:42] LABS: Appearance,Urine Cloudy (Clear); Bacteria,Urine Rare /hpf; Bilirubin,Urine Negative (Negative); Blood,Urine Negative (Negative); Color,Urine Yellow; Glucose,Urine (UA) Negative (Negative); Ketones,Urine Negative (Negative); Leukocyte Esterase,Urine Negative (Negative); Mucus,Urine Rare /hpf; Nitrite,Urine Negative (Negative); Protein,Urine Trace (Negative); RBC,Urine 3 /hpf (0-5); Specific Gravity,Urine 1.032 (1.001-1.035); Squamous Epithelial Cell,Urine <1 /hpf (0-4); Urobilinogen,Urine <2.0 mg/dL (<2.0); WBC,Urine 3 /hpf (0-5)
--- NOTE | 2022-08-26 14:46 | CONS ---
CONSULTATION REASON FOR CONSULTATION: Consult is regarding atrial fibrillation. HISTORY OF PRESENT ILLNESS: Ms. Duque is a 62 years old. She has anemia, which is a chronic anemia. Now, she has [id number] anemia with a significant drop in hemoglobin of about 5.2. I was asked to see her because of atrial fibrillation. On looking at the EKG, she does not have atrial fibrillation. What we are seeing is a sinus tachycardia. The hemoglobin was 5.2, and white count is 4.6. The platelet count is 121. She probably has some form of myelodysplastic syndrome and has seen Dr. Pathak or Dr. Doshi in the past. She is on a BiPAP at this time. She is not in any distress. No chest pain. EKG revealed what seems to be sinus tachycardia. The rhythm is regular. P waves are not easily evident. She is resting comfortably without symptoms. I have suggested that we should discontinue the IV Cardizem and request a Hematology evaluation. I will place her on a small dose of beta-kedar and verapamil and agree with blood transfusion. She has had an upper endoscopy before without any evidence of detection in terms of the source of bleeding. Cardiac-lee, we will also obtain echocardiogram to assess LV function. Apparently, she has some history of myelodysplastic syndrome in the past. Her last echo was from November of 2021, which revealed normal systolic function with mild mitral and tricuspid regurgitation. Ejection fraction was more than 55%. PAST MEDICAL HISTORY: Remarkable for probable myelodysplastic syndrome, COPD, past history of smoking, chronic anemia, history of pneumonia, and previous bronchoscopy. MEDICATIONS AT HOME: Include: 1. Vitamin B12. 2. Vitamin C. 3. Protonix. 4. Albuterol inhaler. 5. Iron sulfate. PHYSICAL EXAMINATION: VITAL SIGNS: Blood pressure is 130/80, pulse rate is about 110 and regular. HEENT: Unremarkable. Fundus was not examined by me. NECK: Supple. There is no JVD. No carotid bruit. HEART: Reveals S1 and S2. Tachycardia. No significant murmurs. LUNGS: Reveal diminished air entry. ABDOMEN: Soft. EXTREMITIES: Lower extremities reveal diminished pulses. CENTRAL NERVOUS SYSTEM: Grossly, no focal deficits. EKG revealed what seems to be a sinus tachycardia. Rhythm is by far regular. IMPRESSION: 1. Severe anemia, [id number]. The patient to receive blood transfusion. 2. Sinus tachycardia. 3. No clear-cut evidence of atrial fibrillation. RECOMMENDATIONS: I am recommending that we discontinue IV Cardizem, place her on a small dose of oral verapamil and beta-kedar, seek Hematology evaluation. No other intervention from a cardiac standpoint. Her last echo from November of 2021, did not reveal any significant abnormalities, and an echo has been ordered today. Thank you very much for the consult. MMODL / IJN: [id number] /
[2022-08-26 16:14] LABS: Anisocytosis Moderate; HCT 23.5 % (34.0-46.0); HGB 7.6 gm/dL (11.4-16.0); Hypochromasia Slight; MCH 28.8 pg (25.0-35.0); MCHC 32.3 g/dL (31.0-37.0); MCV 89.2 fL (80.0-100.0); Macrocytosis Slight; Mean Platelet Volume 14.7; Poikilocytosis Slight; RBC 2.63 m/uL (3.80-5.40); WBC 3.1 k/uL (3.8-10.6)
[2022-08-26 16:53] LABS: Platelet Count 74 k/uL (150-450)
[2022-08-26 20:38] LABS: % Iron Saturation 4.81 (12.00-45.00)
[2022-08-27] MEDS: methylPREDNISolone SOD SUCCI 125 MG/2 ML VIAL IV SCH ×3 (05:57→17:38)
[2022-08-27 06:33] LABS: Anisocytosis Moderate; HCT 21.3 % (34.0-46.0); Hypochromasia Slight; MCH 28.7 pg (25.0-35.0); MCHC 32.4 g/dL (31.0-37.0); MCV 88.6 fL (80.0-100.0); Macrocytosis Slight; Mean Platelet Volume 15.4; Poikilocytosis Moderate; RBC 2.41 m/uL (3.80-5.40); RDW 23.2 % (11.5-15.5)
[2022-08-27 06:37] LABS: Ionized Calcium 4.7 mg/dL (4.5-5.3)
[2022-08-27] MEDS: PANTOPRAZOLE 40 MG TABLET PO SCH (06:44)
[2022-08-27 06:46] LABS: Potassium 3.9 mmol/L (3.5-5.1)
[2022-08-27 06:47] LABS: African American GFR (CKD) >90 (>60 ml/min/1.73 sqM); Anion Gap 5 mmol/L; Blood Urea Nitrogen 31 mg/dL (7-17); Calcium 7.2 mg/dL (8.4-10.2); Carbon Dioxide 22 mmol/L (22-30); Chloride 112 mmol/L (98-107); Glucose 130 mg/dL (74-99); Non-African American GFR(CKD) >90 (>60 ml/min/1.73 sqM); Sodium 139 mmol/L (137-145)
[2022-08-27] MEDS ORDERED: Potassium Replacement Protocol 1 EACH MISC MISCELLANE PRN (06:51)
[2022-08-27 06:56] LABS: HGB 6.9 gm/dL (11.4-16.0); Platelet Count 77 k/uL (150-450)
[2022-08-27] MEDS: POTASSIUM CHLORIDE 10 MEQ in WATER FOR INJECTION 1 100ML.BAG IVPB SCH ×2 (07:51→12:11)
[2022-08-27] MEDS: IPRATROPIUM-ALBUTEROL 3 ML NEB INHALATION SCH ×4 (08:20→20:12)
[2022-08-27] MEDS: BUDESONIDE 1 MG/2 ML NEBU INHALATION SCH ×2 (08:20→20:12)
[2022-08-27] MEDS: FORMOTEROL FUMARATE 20 MCG/2 ML NEBU INHALATION SCH ×2 (08:20→20:12)
[2022-08-27] MEDS: METOPROLOL TARTRATE 25 MG TAB PO SCH ×2 (08:36→21:21)
[2022-08-27] MEDS: ALPRAZolam 0.25 MG TAB PO SCH ×2 (08:36→21:19)
[2022-08-27] MEDS: AZITHROMYCIN 500 MG in SODIUM CHLORIDE 0.9% 250 ML IVPB SCH (08:37)
--- NOTE | 2022-08-27 08:49 | PN ---
PROGRESS NOTE SUBJECTIVE: Mrs. Duque is 62 years of age. She has myelodysplastic syndrome. Her hemoglobin is up to 7.6 after 2 units. She is in sinus rhythm, hemodynamically stable. There are a lot of other comorbid conditions. Yesterday, I saw her for atrial fib which in fact was not atrial fib, was actually sinus tachycardia. Her heart rate is in the 80s now. I am recommending that continue the beta kedar, ejection fraction in the 45% range. The patient is doing somewhat better from a cardiac standpoint. I will see her as needed. Her rhythm is sinus and rate is well controlled. MMODL / IJN: [id number] /
[2022-08-27 10:03] LABS: Band Neutrophils % 1 %; Eosinophils # (M) 0.03 k/uL (0-0.7); Lymphocytes # (M) 0.18 k/uL (1.0-4.8); Metamyelocytes # (M) 0.03 k/uL (0); Metamyelocytes % 1 %; Monocytes # (M) 0.06 k/uL (0-1.0); Neutrophils % (M) 90 %; Nucleated Red Blood Cells 6 /100 WBC (0-0); Total Cells Counted 200
[2022-08-27 10:06] LABS: Large Platelets Present
--- NOTE | 2022-08-27 10:43 | P.PN ---
Subjective Progress Note Date: 08/27/22 I'm seeing this patient in new consultation today 08/26/2022 in regard to some shortness of breath that started on Tuesday, approximately 2 days ago. This is a pleasant 62-year-old female with past medical history of severe emphysema with an FEV1 that is 37% of predicted, chronic hypoxic respiratory failure on 2 L home O2, heavy ex-smoker, chronic anemia, and myelodysplastic syndrome. Patient's primary care provider is Dr. Cordero out of [place]. Patient does follow with Dr. Ayala in the office. She normally manages her COPD with a combination of Spiriva and albuterol. She has had a recent bronchoscopy during an admission for pneumonia in late July,. A bronchoscopy with transbronchial biopsy of the right lower lobe and washing/lavage of right lower lobe and left lower lobe was also performed on 08/18/2022 because of persistent diffuse reticulonodular infiltrates of bilat eral lower lobes. BAL cultures from this procedure did not show any pathological organisms. Right lower lobe bronchial biopsy showed benign bronchial mucosa and alveolar tissue with prominent submucosal and interstitial cholesterol clefts associated with foamy histocytes and foreign body reaction. This suggests the possibility of a lipoid pneumonia or obstructive pneumonia. Anyway, approximately 2 days ago, patient started to develop some shortness of breath with an associated productive cough with small amounts hemoptysis, fevers, chills, and chest pain with coughing. Patient also started having palpitations that were worse with activity. Patient's meal on wheels provider ultimately ended up calling EMS. Chest x-ray on arrival showed a new left upper lobe masslike pneumonic consolidation with the chronic parenchymal changes that were seen on previous examinations in bilateral lower lobes. Patient's d-dimer was elevated on admission, and a follow up chest CTA showed no evidence of pulmonary embolism. It did redemonstrate the multifocal airspace disease with background moderate centrilobular emphysema. There also was in indeterminate left adrenal nodule which could represent a benign lipid rich adrenal adenoma, but follow-up was recommended. Patient was admitted to the cardiac stepdown unit. Patient did go into new onset atrial fibrillation with rapid ventricular rate. Cardiology is managing with Cardizem at 5 mg per hour. Patient is also on a low dose heparin infusion at 735 units per hour. Heart rate is still uncontrolled, and is ranging from 110-130 bpm. Patient is currently in bed, in some mild respiratory distress, speaking in phrases. She is on BiPAP settings IPAP 12/ EPAP 6 with a FiO2 50%. She is oxygenating 100% on these settings. Blood and sputum cultures were ordered. Urine Legionella culture is pending. Patient is empirically receiving a combination of azithromycin, vancomycin, and Zosyn. Lactic acid level was elevated on admission at 3.6 and is down to 1.5 currently. Patient has received a total of 2 L normal saline bolus. Patient was negative for influenza, RSV, COVID-19. CBC on arrival showed a WBC count of 5.2, hemoglobin 8.5, hematocrit 27.6. BMP was unremarkable. Normal saline is infusing at KVO. NT proBNP was slightly elevated at 1940. Troponin negative 1. Patient is currently receiving bronchodilators. Vital signs are stable at the moment. The patient is seen today 08/27/2022 in follow-up in the intensive care unit. She developed bloody bowel movements and drops in hemoglobin and was transferred here yesterday for the same. her hemoglobin had dropped to 5.2. She is currently receiving her third unit of packed red blood cells. This morning's hemoglobin is 6.9. white count 3.0. Platelets 77,000. Sodium 139. Potassium 3.9. Bicarb 22. BUN 31. Creatinine 0.70. Glucose 130. Procalcitonin 28.5 Stool for occult blood positive. She is currently on oxygen at 6 L/m per nasal cannula. Normal saline at KVO. Blood pressure remains stable. She remains on bronchodilators. IV Solu-Medrol. antibiotics in the form of ceftriaxone.GI consult has been placed. Objective - Vital Signs Vital signs: Vital Signs Temp 96.8 F L 08/27/22 09:52 Pulse 85 08/27/22 10:00 Resp 22 08/27/22 10:00 BP 107/66 08/27/22 09:32 Pulse Ox 98 08/27/22 10:00 FiO2 40 08/26/22 16:00 Intake & Output 08/26/22 08/27/22 08/27/22 18:59 06:59 18:59 Intake Total 1740 730 430 Output Total 380 500 210 Balance 1360 230 220 Weight 68.4 kg Intake: IV 1120 240 430 0.9 KVO 20 240 80 Azithromycin 500 mg In 250 Sodium Chloride 0.9% 250 ml @ 250 mls/hr IVPB DAILY [facility] Rx#:[id number] Calcium Gluconate in NaCl 100 2 gm In Saline 1 100ml. bag @ 100 mls/hr IVPB ONCE ONE Rx#:[id number] Potassium Chloride 10 meq 100 In Water For Injection 1 100ml.bag @ 100 mls/hr IVPB Q1H [facility] Rx#: [id number] Sodium Chloride 0.9% 1, 1000 000 ml @ 999 mls/hr IV . Q1H1M STA Rx#:[id number] Oral 490 Blood Product 620 0 Rc As-1 Unit 0 [id number] Rc As-1 Unit 310 [id number] Rc As-1 Unit 310 [id number] Output: Urine 380 500 210 Other: Voiding Method Indwelling Catheter Indwelling Catheter Indwelling Catheter # Bowel Movements 1 1 - Exam GENERAL EXAM: Alert, pale, weak 62-year-old female, on 6 L nasal cannula, fairly comfortable in no apparent distress. HEAD: Normocephalic. EYES: Normal reaction of pupils, equal size. NOSE: Clear with pink turbinates. THROAT: No erythema or exudates. NECK: No masses, no JVD. CHEST: No chest wall deformity. LUNGS: Equal air entry with end expiratory wheeze, diminished. CVS: S1 and S2 normal with no audible murmur, regular rhythm. ABDOMEN: No hepatosplenomegaly, normal bowel sounds, no guarding or rigidity. SPINE: No scoliosis or deformity SKIN: No rashes CENTRAL NERVOUS SYSTEM: No focal deficits, tone is normal in all 4 extremities. EXTREMITIES: There is no peripheral edema. No clubbing, no cyanosis. Peripheral pulses are intact. - Labs CBC & Chem 7: 08/27/22 05:46 08/27/22 05:46 Labs: Abnormal Lab Results - Last 24 Hours (Table) 08/25/22 08/25/22 08/26/22 Range/Units 13:00 15:45 03:23 WBC (3.8-10.6) k/uL RBC (3.80-5.40) m/uL Hgb (11.4-16.0) gm/dL Hct (34.0-46.0) % RDW (11.5-15.5) % Plt Count (150-450) k/uL Lymphocytes # (Manual) (1.0-4.8) k/uL Metamyelocytes # (Man) (0) k/uL Nucleated RBCs (0-0) /100 WBC ABG pCO2 (35-45) mmHg ABG pO2 (83-108) mmHg ABG HCO3 (21-25) mmol/L ABG Total CO2 (19-24) mmol/L ABG O2 Saturation (94-97) % Chloride (98-107) mmol/L Carbon Dioxide (22-30) mmol/L BUN (7-17) mg/dL Creatinine (0.52-1.04) mg/dL Glucose (74-99) mg/dL POC Glucose (mg/dL) (70-110) mg/dL Plasma Lactic Acid Alex (0.7-2.0) mmol/L Calcium (8.4-10.2) mg/dL Ionized Calcium Reza (4.5-5.3) mg/dL Iron 7 L (50-170) ug/dL TIBC 147 L (228-460) ug/dL % Saturation 4.81 L (12.00-45.00) Transferrin 105.0 L (204.0-354.0) mg/dL Ferritin 671.0 H (10.0-291.0) ng/mL Total Bilirubin (0.2-1.3) mg/dL Total Protein (6.3-8.2) g/dL Albumin (3.5-5.0) g/dL Procalcitonin (0.02-0.09) ng/mL Urine Appearance Cloudy H (Clear) Urine Protein Trace H (Negative) Urine Bacteria Rare H (None) /hpf Urine Mucus Rare H (None) /hpf Stool Occult Blood (Negative) Crossmatch See Detail 08/26/22 08/26/22 08/26/22 Range/Units 11:52 12:12 12:16 WBC (3.8-10.6) k/uL RBC (3.80-5.40) m/uL Hgb (11.4-16.0) gm/dL Hct (34.0-46.0) % RDW (11.5-15.5) % Plt Count (150-450) k/uL Lymphocytes # (Manual) (1.0-4.8) k/uL Metamyelocytes # (Man) (0) k/uL Nucleated RBCs (0-0) /100 WBC ABG pCO2 24 L (35-45) mmHg ABG pO2 137 H (83-108) mmHg ABG HCO3 15 L (21-25) mmol/L ABG Total CO2 16 L (19-24) mmol/L ABG O2 Saturation 99.8 H (94-97) % Chloride 109 H (98-107) mmol/L Carbon Dioxide 18 L (22-30) mmol/L BUN 41 H (7-17) mg/dL Creatinine 1.23 H (0.52-1.04) mg/dL Glucose 162 H (74-99) mg/dL POC Glucose (mg/dL) 192 H (70-110) mg/dL Plasma Lactic Acid Alex (0.7-2.0) mmol/L Calcium 6.4 L* (8.4-10.2) mg/dL Ionized Calcium Reza (4.5-5.3) mg/dL Iron (50-170) ug/dL TIBC (228-460) ug/dL % Saturation (12.00-45.00) Transferrin (204.0-354.0) mg/dL Ferritin (10.0-291.0) ng/mL Total Bilirubin 1.4 H (0.2-1.3) mg/dL Total Protein 4.1 L (6.3-8.2) g/dL Albumin 2.1 L (3.5-5.0) g/dL Procalcitonin (0.02-0.09) ng/mL Urine Appearance (Clear) Urine Protein (Negative) Urine Bacteria (None) /hpf Urine Mucus (None) /hpf Stool Occult Blood (Negative) Crossmatch 08/26/22 08/26/22 08/26/22 Range/Units 12:16 12:16 12:16 WBC (3.8-10.6) k/uL RBC 2.16 L (3.80-5.40) m/uL Hgb 6.3 L* (11.4-16.0) gm/dL Hct 20.2 L (34.0-46.0) % RDW 23.3 H (11.5-15.5) % Plt Count 108 L (150-450) k/uL Lymphocytes # (Manual) (1.0-4.8) k/uL Metamyelocytes # (Man) (0) k/uL Nucleated RBCs (0-0) /100 WBC ABG pCO2 (35-45) mmHg ABG pO2 (83-108) mmHg ABG HCO3 (21-25) mmol/L ABG Total CO2 (19-24) mmol/L ABG O2 Saturation (94-97) % Chloride (98-107) mmol/L Carbon Dioxide (22-30) mmol/L BUN (7-17) mg/dL Creatinine (0.52-1.04) mg/dL Glucose (74-99) mg/dL POC Glucose (mg/dL) (70-110) mg/dL Plasma Lactic Acid Alex 3.3 H* (0.7-2.0) mmol/L Calcium (8.4-10.2) mg/dL Ionized Calcium Reza (4.5-5.3) mg/dL Iron (50-170) ug/dL TIBC (228-460) ug/dL % Saturation (12.00-45.00) Transferrin (204.0-354.0) mg/dL Ferritin (10.0-291.0) ng/mL Total Bilirubin (0.2-1.3) mg/dL Total Protein (6.3-8.2) g/dL Albumin (3.5-5.0) g/dL Procalcitonin 28.50 H (0.02-0.09) ng/mL Urine Appearance (Clear) Urine Protein (Negative) Urine Bacteria (None) /hpf Urine Mucus (None) /hpf Stool Occult Blood (Negative) Crossmatch 08/26/22 08/26/22 08/26/22 Range/Units 12:53 15:53 15:53 WBC 3.1 L (3.8-10.6) k/uL RBC 2.63 L (3.80-5.40) m/uL Hgb 7.6 L (11.4-16.0) gm/dL Hct 23.5 L (34.0-46.0) % RDW 22.0 H (11.5-15.5) % Plt Count 74 L (150-450) k/uL Lymphocytes # (Manual) (1.0-4.8) k/uL Metamyelocytes # (Man) (0) k/uL Nucleated RBCs (0-0) /100 WBC ABG pCO2 (35-45) mmHg ABG pO2 (83-108) mmHg ABG HCO3 (21-25) mmol/L ABG Total CO2 (19-24) mmol/L ABG O2 Saturation (94-97) % Chloride (98-107) mmol/L Carbon Dioxide (22-30) mmol/L BUN (7-17) mg/dL Creatinine (0.52-1.04) mg/dL Glucose (74-99) mg/dL POC Glucose (mg/dL) 184 H (70-110) mg/dL Plasma Lactic Acid Alex (0.7-2.0) mmol/L Calcium (8.4-10.2) mg/dL Ionized Calcium Reza 4.2 L (4.5-5.3) mg/dL Iron (50-170) ug/dL TIBC (228-460) ug/dL % Saturation (12.00-45.00) Transferrin (204.0-354.0) mg/dL Ferritin (10.0-291.0) ng/mL Total Bilirubin (0.2-1.3) mg/dL Total Protein (6.3-8.2) g/dL Albumin (3.5-5.0) g/dL Procalcitonin (0.02-0.09) ng/mL Urine Appearance (Clear) Urine Protein (Negative) Urine Bacteria (None) /hpf Urine Mucus (None) /hpf Stool Occult Blood (Negative) Crossmatch 08/26/22 08/27/22 08/27/22 Range/Units 20:57 05:46 05:46 WBC 3.0 L (3.8-10.6) k/uL RBC 2.41 L (3.80-5.40) m/uL Hgb 6.9 L* (11.4-16.0) gm/dL Hct 21.3 L (34.0-46.0) % RDW 23.2 H (11.5-15.5) % Plt Count 77 L (150-450) k/uL Lymphocytes # (Manual) 0.18 L (1.0-4.8) k/uL Metamyelocytes # (Man) 0.03 H (0) k/uL Nucleated RBCs 6 H (0-0) /100 WBC ABG pCO2 (35-45) mmHg ABG pO2 (83-108) mmHg ABG HCO3 (21-25) mmol/L ABG Total CO2 (19-24) mmol/L ABG O2 Saturation (94-97) % Chloride 112 H (98-107) mmol/L Carbon Dioxide (22-30) mmol/L BUN 31 H (7-17) mg/dL Creatinine (0.52-1.04) mg/dL Glucose 130 H (74-99) mg/dL POC Glucose (mg/dL) (70-110) mg/dL Plasma Lactic Acid Alex (0.7-2.0) mmol/L Calcium 7.2 L (8.4-10.2) mg/dL Ionized Calcium Reza (4.5-5.3) mg/dL Iron (50-170) ug/dL TIBC (228-460) ug/dL % Saturation (12.00-45.00) Transferrin (204.0-354.0) mg/dL Ferritin (10.0-291.0) ng/mL Total Bilirubin (0.2-1.3) mg/dL Total Protein (6.3-8.2) g/dL Albumin (3.5-5.0) g/dL Procalcitonin (0.02-0.09) ng/mL Urine Appearance (Clear) Urine Protein (Negative) Urine Bacteria (None) /hpf Urine Mucus (None) /hpf Stool Occult Blood Positive A (Negative) Crossmatch Microbiology - Last 24 Hours (Table) 08/25/22 17:59 Blood Culture - Preliminary Blood No Growth after 24 hours Assessment and Plan Assessment: Left upper lobe pneumonia, sepsis. Chest x-ray on arrival showed a new left upper lobe masslike pneumonic consolidation with the chronic parenchymal changes that were seen on previous examinations in bilateral lower lobes. A follow up Chest CTA also redemonstrated the multifocal airspace disease with background moderate centrilobular emphysema. Acute COPD exacerbation secondary to above. Patient does have baseline severe emphysema with an FEV1 that is 37% of predicted. Acute on chronic hypoxic respiratory failure normally maintained on 2 L home O2. She is currently on BiPAP settings 05/11 with an FiO2 of 50% New-onset atrial fibrillation with rapid ventricular rate. Cardiology is managing with Cardizem at 5 mg per hour. Patient is also on a low-dose heparin infusion at 735 units per hour. Myelodysplastic syndrome Chronic iron deficiency anemia with history of iron transfusions. There is a left adrenal nodule that was found on chest CTA which could represent benign lipid rich adrenal adenoma, however, follow-up was recommended. Ex-smoker Plan: The patient was seen and evaluated Medications and labs reviewed Continue with blood transfusions Continue to monitor hemoglobin Continue COPD treatment Continue antibiotics Prognosis is guarded We'll continue to follow and make further recommendations based on her clinical status I have personally seen and examined the patient, performed the documentation and the assessment and plan as written. Number of minutes spent on the visit: 10.
--- NOTE | 2022-08-27 10:48 | P.PN ---
Subjective Progress Note Date: 08/27/22 Hospital Course: 62 year old female with MDS, GI bleed, , COPD on 2 L oxygen at home presenting with dyspnea, palpitations, productive cough with occasional hemoptysis, chest pain. Patient was recently hospitalized for pneumonia as well as acute anemia, had a bronchoscopy at that time, patient was eventually discharged on oral antibiotics and prednisone taper. Since presenting to the ED this time, patient has been hypoxic, tachypneic, tachycardic requiring BiPAP for increased work of breathing. Patient was evaluated by pulmonology. Patient was started on IV antibiotics, steroids and bronchodilators for pneumonia as well as COPD exacerbation. CTA chest showed no PE, multifocal airspace disease with moderate emphysema, worsening left upper lobe, also incidental left adrenal nodule. On 08/26, patient had an episode of hypertension and unresponsiveness. Patient was then transferred to the medical ICU. Echocardiogram report reviewed: Mildly impaired LV function with EF 45%, moderate AI. She is not having bloody bowel movements. Subjective: Patient seen and examined at bedside. Overnight, she had multiple bloody bowel movements. She claims that she continues to have shortness of breath, but denies any chest pain, abdominal pain, nausea or vomiting. She denies any urinary complaints. She currently has a urinary catheter in place. She feels hungry at the moment. She is off BiPAP, on nasal cannula Pertinent positives and negatives as discussed above, a complete review of systems was performed and all other systems are negative. Vitals Signs Reviewed. General: In mild distress, appears older than stated age Derm: warm, dry Head: atraumatic, normocephalic, symmetric Eyes: EOMI, no lid lag, anicteric sclera Mouth: no lip lesion, mucus membranes moist Cardiovascular: S1S2 reg, no murmur Lungs: CTA bilateral, no rhonchi, no rales , no accessory muscle use, nasal cannula 6 L Abdominal: soft, nontender to palpation, no guarding, no appreciable orga nomegaly Ext: no gross muscle atrophy, no edema, no contractures Neuro: CN II-XI grossly intact, no focal neuro deficits Psych: Alert, oriented, appropriate affect Data Reviewed Today: Pertinent Labs: WBC 3.0, hemoglobin 6.9, with 77, potassium 3.9, BUN 31, creatinine 0.7 Assessment and Plan: Patient is critically ill, has GI bleed, history of MDS. Currently requiring multiple blood transfusions. She remains in the medical ICU. Had an extensive discussion with regards to goals of care, patient wants to remain full code. Active: Acute GI bleed, blood loss anemia Acute on chronic hypoxic respiratory failure Septic secondary to left upper lobe pneumonia Acute COPD exacerbation Sinus tachycardia Acute on chronic macrocytic anemia History of MDS Left adrenal nodule, incidental finding -Hemoglobin down trending, 1 unit of PRBCs ordered -Oral Protonix changed to IV, 40 mg twice a day -GI has been consulted -Keep nothing by mouth -She is now off of BiPAP, currently on 6 L nasal cannula, continue to wean -Pulmonology following -Continue ceftriaxone 2 g IV daily, completed azithromycin course -Currently on bronchodilators, as well as Solu-Medrol 60 mg IV every 6 hours -Cardiology following, patient currently on metoprolol 25 mg twice a day -Needs outpatient follow-up for adrenal nodule Resolved: Acute renal failure Lactic acidosis Hypocalcemia DVT ppx: SCD Code status: Full code Anticipated discharge place: Pending clinical course Anticipated discharge time: Pending clincal course Objective - Vital Signs Vital signs: Vital Signs Temp 96.8 F L 08/27/22 09:52 Pulse 85 08/27/22 10:00 Resp 22 08/27/22 10:00 BP 107/66 08/27/22 09:32 Pulse Ox 98 08/27/22 10:00 FiO2 40 08/26/22 16:00 Intake & Output 08/26/22 08/27/22 08/27/22 18:59 06:59 18:59 Intake Total 1740 730 430 Output Total 380 500 210 Balance 1360 230 220 Weight 68.4 kg Intake: IV 1120 240 430 0.9 KVO 20 240 80 Azithromycin 500 mg In 250 Sodium Chloride 0.9% 250 ml @ 250 mls/hr IVPB DAILY [facility] Rx#:[id number] Calcium Gluconate in NaCl 100 2 gm In Saline 1 100ml. bag @ 100 mls/hr IVPB ONCE ONE Rx#:[id number] Potassium Chloride 10 meq 100 In Water For Injection 1 100ml.bag @ 100 mls/hr IVPB Q1H [facility] Rx#: [id number] Sodium Chloride 0.9% 1, 1000 000 ml @ 999 mls/hr IV . Q1H1M [facility] Rx#:[id number] Oral 490 Blood Product 620 0 Rc As-1 Unit 0 [id number] Rc As-1 Unit 310 [id number] Rc As-1 Unit 310 [id number] Output: Urine 380 500 210 Other: Voiding Method Indwelling Catheter Indwelling Catheter Indwelling Catheter # Bowel Movements 1 1 - Labs CBC & Chem 7: 08/27/22 05:46 08/27/22 05:46 Labs: Abnormal Lab Results - Last 24 Hours (Table) 08/25/22 08/25/22 08/26/22 Range/Units 13:00 15:45 03:23 WBC (3.8-10.6) k/uL RBC (3.80-5.40) m/uL Hgb (11.4-16.0) gm/dL Hct (34.0-46.0) % RDW (11.5-15.5) % Plt Count (150-450) k/uL Lymphocytes # (Manual) (1.0-4.8) k/uL Metamyelocytes # (Man) (0) k/uL Nucleated RBCs (0-0) /100 WBC ABG pCO2 (35-45) mmHg ABG pO2 (83-108) mmHg ABG HCO3 (21-25) mmol/L ABG Total CO2 (19-24) mmol/L ABG O2 Saturation (94-97) % Chloride (98-107) mmol/L Carbon Dioxide (22-30) mmol/L BUN (7-17) mg/dL Creatinine (0.52-1.04) mg/dL Glucose (74-99) mg/dL POC Glucose (mg/dL) (70-110) mg/dL Plasma Lactic Acid Alex (0.7-2.0) mmol/L Calcium (8.4-10.2) mg/dL Ionized Calcium Reza (4.5-5.3) mg/dL Iron 7 L (50-170) ug/dL TIBC 147 L (228-460) ug/dL % Saturation 4.81 L (12.00-45.00) Transferrin 105.0 L (204.0-354.0) mg/dL Ferritin 671.0 H (10.0-291.0) ng/mL Total Bilirubin (0.2-1.3) mg/dL Total Protein (6.3-8.2) g/dL Albumin (3.5-5.0) g/dL Procalcitonin (0.02-0.09) ng/mL Urine Appearance Cloudy H (Clear) Urine Protein Trace H (Negative) Urine Bacteria Rare H (None) /hpf Urine Mucus Rare H (None) /hpf Stool Occult Blood (Negative) Crossmatch See Detail 08/26/22 08/26/22 08/26/22 Range/Units 11:52 12:12 12:16 WBC (3.8-10.6) k/uL RBC (3.80-5.40) m/uL Hgb (11.4-16.0) gm/dL Hct (34.0-46.0) % RDW (11.5-15.5) % Plt Count (150-450) k/uL Lymphocytes # (Manual) (1.0-4.8) k/uL Metamyelocytes # (Man) (0) k/uL Nucleated RBCs (0-0) /100 WBC ABG pCO2 24 L (35-45) mmHg ABG pO2 137 H (83-108) mmHg ABG HCO3 15 L (21-25) mmol/L ABG Total CO2 16 L (19-24) mmol/L ABG O2 Saturation 99.8 H (94-97) % Chloride 109 H (98-107) mmol/L Carbon Dioxide 18 L (22-30) mmol/L BUN 41 H (7-17) mg/dL Creatinine 1.23 H (0.52-1.04) mg/dL Glucose 162 H (74-99) mg/dL POC Glucose (mg/dL) 192 H (70-110) mg/dL Plasma Lactic Acid Alex (0.7-2.0) mmol/L Calcium 6.4 L* (8.4-10.2) mg/dL Ionized Calcium Reza (4.5-5.3) mg/dL Iron (50-170) ug/dL TIBC (228-460) ug/dL % Saturation (12.00-45.00) Transferrin (204.0-354.0) mg/dL Ferritin (10.0-291.0) ng/mL Total Bilirubin 1.4 H (0.2-1.3) mg/dL Total Protein 4.1 L (6.3-8.2) g/dL Albumin 2.1 L (3.5-5.0) g/dL Procalcitonin (0.02-0.09) ng/mL Urine Appearance (Clear) Urine Protein (Negative) Urine Bacteria (None) /hpf Urine Mucus (None) /hpf Stool Occult Blood (Negative) Crossmatch 08/26/22 08/26/22 08/26/22 Range/Units 12:16 12:16 12:16 WBC (3.8-10.6) k/uL RBC 2.16 L (3.80-5.40) m/uL Hgb 6.3 L* (11.4-16.0) gm/dL Hct 20.2 L (34.0-46.0) % RDW 23.3 H (11.5-15.5) % Plt Count 108 L (150-450) k/uL Lymphocytes # (Manual) (1.0-4.8) k/uL Metamyelocytes # (Man) (0) k/uL Nucleated RBCs (0-0) /100 WBC ABG pCO2 (35-45) mmHg ABG pO2 (83-108) mmHg ABG HCO3 (21-25) mmol/L ABG Total CO2 (19-24) mmol/L ABG O2 Saturation (94-97) % Chloride (98-107) mmol/L Carbon Dioxide (22-30) mmol/L BUN (7-17) mg/dL Creatinine (0.52-1.04) mg/dL Glucose (74-99) mg/dL POC Glucose (mg/dL) (70-110) mg/dL Plasma Lactic Acid Alex 3.3 H* (0.7-2.0) mmol/L Calcium (8.4-10.2) mg/dL Ionized Calcium Reza (4.5-5.3) mg/dL Iron (50-170) ug/dL TIBC (228-460) ug/dL % Saturation (12.00-45.00) Transferrin (204.0-354.0) mg/dL Ferritin (10.0-291.0) ng/mL Total Bilirubin (0.2-1.3) mg/dL Total Protein (6.3-8.2) g/dL Albumin (3.5-5.0) g/dL Procalcitonin 28.50 H (0.02-0.09) ng/mL Urine Appearance (Clear) Urine Protein (Negative) Urine Bacteria (None) /hpf Urine Mucus (None) /hpf Stool Occult Blood (Negative) Crossmatch 08/26/22 08/26/22 08/26/22 Range/Units 12:53 15:53 15:53 WBC 3.1 L (3.8-10.6) k/uL RBC 2.63 L (3.80-5.40) m/uL Hgb 7.6 L (11.4-16.0) gm/dL Hct 23.5 L (34.0-46.0) % RDW 22.0 H (11.5-15.5) % Plt Count 74 L (150-450) k/uL Lymphocytes # (Manual) (1.0-4.8) k/uL Metamyelocytes # (Man) (0) k/uL Nucleated RBCs (0-0) /100 WBC ABG pCO2 (35-45) mmHg ABG pO2 (83-108) mmHg ABG HCO3 (21-25) mmol/L ABG Total CO2 (19-24) mmol/L ABG O2 Saturation (94-97) % Chloride (98-107) mmol/L Carbon Dioxide (22-30) mmol/L BUN (7-17) mg/dL Creatinine (0.52-1.04) mg/dL Glucose (74-99) mg/dL POC Glucose (mg/dL) 184 H (70-110) mg/dL Plasma Lactic Acid Alex (0.7-2.0) mmol/L Calcium (8.4-10.2) mg/dL Ionized Calcium Reza 4.2 L (4.5-5.3) mg/dL Iron (50-170) ug/dL TIBC (228-460) ug/dL % Saturation (12.00-45.00) Transferrin (204.0-354.0) mg/dL Ferritin (10.0-291.0) ng/mL Total Bilirubin (0.2-1.3) mg/dL Total Protein (6.3-8.2) g/dL Albumin (3.5-5.0) g/dL Procalcitonin (0.02-0.09) ng/mL Urine Appearance (Clear) Urine Protein (Negative) Urine Bacteria (None) /hpf Urine Mucus (None) /hpf Stool Occult Blood (Negative) Crossmatch 08/26/22 08/27/22 08/27/22 Range/Units 20:57 05:46 05:46 WBC 3.0 L (3.8-10.6) k/uL RBC 2.41 L (3.80-5.40) m/uL Hgb 6.9 L* (11.4-16.0) gm/dL Hct 21.3 L (34.0-46.0) % RDW 23.2 H (11.5-15.5) % Plt Count 77 L (150-450) k/uL Lymphocytes # (Manual) 0.18 L (1.0-4.8) k/uL Metamyelocytes # (Man) 0.03 H (0) k/uL Nucleated RBCs 6 H (0-0) /100 WBC ABG pCO2 (35-45) mmHg ABG pO2 (83-108) mmHg ABG HCO3 (21-25) mmol/L ABG Total CO2 (19-24) mmol/L ABG O2 Saturation (94-97) % Chloride 112 H (98-107) mmol/L Carbon Dioxide (22-30) mmol/L BUN 31 H (7-17) mg/dL Creatinine (0.52-1.04) mg/dL Glucose 130 H (74-99) mg/dL POC Glucose (mg/dL) (70-110) mg/dL Plasma Lactic Acid Alex (0.7-2.0) mmol/L Calcium 7.2 L (8.4-10.2) mg/dL Ionized Calcium Reza (4.5-5.3) mg/dL Iron (50-170) ug/dL TIBC (228-460) ug/dL % Saturation (12.00-45.00) Transferrin (204.0-354.0) mg/dL Ferritin (10.0-291.0) ng/mL Total Bilirubin (0.2-1.3) mg/dL Total Protein (6.3-8.2) g/dL Albumin (3.5-5.0) g/dL Procalcitonin (0.02-0.09) ng/mL Urine Appearance (Clear) Urine Protein (Negative) Urine Bacteria (None) /hpf Urine Mucus (None) /hpf Stool Occult Blood Positive A (Negative) Crossmatch Microbiology - Last 24 Hours (Table) 08/25/22 17:59 Blood Culture - Preliminary Blood No Growth after 24 hours
--- NOTE | 2022-08-27 12:16 | P.PN ---
Subjective Progress Note Date: 08/27/22 Principal diagnosis: anemia please visit patient is resting comfortably in bed. Patient is reporting shortness of breath. She is also reporting that she began to have blood in her stool last night and passed a very large clot. Patient denies abdominal pain, chest pain and dizziness. Patient is tachypneic and pale. No other reported complaints Objective - Vital Signs Vital signs: Vital Signs Temp 96.2 F L 08/27/22 11:53 Pulse 78 08/27/22 11:54 Resp 20 08/27/22 11:53 BP 97/55 08/27/22 11:53 Pulse Ox 97 08/27/22 11:53 FiO2 40 08/26/22 16:00 Intake & Output 08/26/22 08/27/22 08/27/22 18:59 06:59 18:59 Intake Total 1740 730 760 Output Total 380 500 240 Balance 1360 230 520 Weight 68.4 kg Intake: IV 1120 240 450 0.9 KVO 20 240 100 Azithromycin 500 mg In 250 Sodium Chloride 0.9% 250 ml @ 250 mls/hr IVPB DAILY [facility] Rx#:[id number] Calcium Gluconate in NaCl 100 2 gm In Saline 1 100ml. bag @ 100 mls/hr IVPB ONCE ONE Rx#:[id number] Potassium Chloride 10 meq 100 In Water For Injection 1 100ml.bag @ 100 mls/hr IVPB Q1H [facility] Rx#: [id number] Sodium Chloride 0.9% 1, 1000 000 ml @ 999 mls/hr IV . Q1H1M [facility] Rx#:[id number] Oral 490 Blood Product 620 310 As-1 Unit 310 [id number] As-1 Unit 310 [id number] As-1 Unit 310 [id number] Output: Urine 380 500 240 Other: Voiding Method Indwelling Catheter Indwelling Catheter Indwelling Catheter # Bowel Movements 1 1 - Constitutional General appearance: Present: average body habitus, no acute distress - EENT Eyes: Present: anicteric sclerae, EOMI ENT: Present: hearing grossly normal - Respiratory Details: breathing labored Respiratory: bilateral: wheezing - Cardiovascular Rhythm: regular Heart sounds: normal: S1, S2 Abnormal Heart Sounds: Absent: systolic murmur, diastolic murmur, rub, S3 Gallop, S4 Gallop, click, other - Peripheral edema leg Peripheral Edema: bilateral: None - Gastrointestinal General gastrointestinal: Present: soft. Absent: tenderness - Integumentary Integumentary: Present: pale - Musculoskeletal Musculoskeletal: Present: generalized weakness - Psychiatric Psychiatric: Present: A&O x's 3, appropriate affect, intact judgment & insight - Labs CBC & Chem 7: 08/27/22 05:46 08/27/22 05:46 Labs: Abnormal Lab Results - Last 24 Hours (Table) 08/25/22 08/25/22 08/26/22 Range/Units 13:00 15:45 03:23 WBC (3.8-10.6) k/uL RBC (3.80-5.40) m/uL Hgb (11.4-16.0) gm/dL Hct (34.0-46.0) % RDW (11.5-15.5) % Plt Count (150-450) k/uL Lymphocytes # (Manual) (1.0-4.8) k/uL Metamyelocytes # (Man) (0) k/uL Nucleated RBCs (0-0) /100 WBC ABG pCO2 (35-45) mmHg ABG pO2 (83-108) mmHg ABG HCO3 (21-25) mmol/L ABG Total CO2 (19-24) mmol/L ABG O2 Saturation (94-97) % Chloride (98-107) mmol/L Carbon Dioxide (22-30) mmol/L BUN (7-17) mg/dL Creatinine (0.52-1.04) mg/dL Glucose (74-99) mg/dL POC Glucose (mg/dL) (70-110) mg/dL Plasma Lactic Acid Alex (0.7-2.0) mmol/L Calcium (8.4-10.2) mg/dL Ionized Calcium Reza (4.5-5.3) mg/dL Iron 7 L (50-170) ug/dL TIBC 147 L (228-460) ug/dL % Saturation 4.81 L (12.00-45.00) Transferrin 105.0 L (204.0-354.0) mg/dL Ferritin 671.0 H (10.0-291.0) ng/mL Total Bilirubin (0.2-1.3) mg/dL Total Protein (6.3-8.2) g/dL Albumin (3.5-5.0) g/dL Procalcitonin (0.02-0.09) ng/mL Urine Appearance Cloudy H (Clear) Urine Protein Trace H (Negative) Urine Bacteria Rare H (None) /hpf Urine Mucus Rare H (None) /hpf Stool Occult Blood (Negative) Crossmatch See Detail 08/26/22 08/26/22 08/26/22 Range/Units 11:52 12:12 12:16 WBC (3.8-10.6) k/uL RBC (3.80-5.40) m/uL Hgb (11.4-16.0) gm/dL Hct (34.0-46.0) % RDW (11.5-15.5) % Plt Count (150-450) k/uL Lymphocytes # (Manual) (1.0-4.8) k/uL Metamyelocytes # (Man) (0) k/uL Nucleated RBCs (0-0) /100 WBC ABG pCO2 24 L (35-45) mmHg ABG pO2 137 H (83-108) mmHg ABG HCO3 15 L (21-25) mmol/L ABG Total CO2 16 L (19-24) mmol/L ABG O2 Saturation 99.8 H (94-97) % Chloride 109 H (98-107) mmol/L Carbon Dioxide 18 L (22-30) mmol/L BUN 41 H (7-17) mg/dL Creatinine 1.23 H (0.52-1.04) mg/dL Glucose 162 H (74-99) mg/dL POC Glucose (mg/dL) 192 H (70-110) mg/dL Plasma Lactic Acid Alex (0.7-2.0) mmol/L Calcium 6.4 L* (8.4-10.2) mg/dL Ionized Calcium Reza (4.5-5.3) mg/dL Iron (50-170) ug/dL TIBC (228-460) ug/dL % Saturation (12.00-45.00) Transferrin (204.0-354.0) mg/dL Ferritin (10.0-291.0) ng/mL Total Bilirubin 1.4 H (0.2-1.3) mg/dL Total Protein 4.1 L (6.3-8.2) g/dL Albumin 2.1 L (3.5-5.0) g/dL Procalcitonin (0.02-0.09) ng/mL Urine Appearance (Clear) Urine Protein (Negative) Urine Bacteria (None) /hpf Urine Mucus (None) /hpf Stool Occult Blood (Negative) Crossmatch 08/26/22 08/26/22 08/26/22 Range/Units 12:16 12:16 12:16 WBC (3.8-10.6) k/uL RBC 2.16 L (3.80-5.40) m/uL Hgb 6.3 L* (11.4-16.0) gm/dL Hct 20.2 L (34.0-46.0) % RDW 23.3 H (11.5-15.5) % Plt Count 108 L (150-450) k/uL Lymphocytes # (Manual) (1.0-4.8) k/uL Metamyelocytes # (Man) (0) k/uL Nucleated RBCs (0-0) /100 WBC ABG pCO2 (35-45) mmHg ABG pO2 (83-108) mmHg ABG HCO3 (21-25) mmol/L ABG Total CO2 (19-24) mmol/L ABG O2 Saturation (94-97) % Chloride (98-107) mmol/L Carbon Dioxide (22-30) mmol/L BUN (7-17) mg/dL Creatinine (0.52-1.04) mg/dL Glucose (74-99) mg/dL POC Glucose (mg/dL) (70-110) mg/dL Plasma Lactic Acid Alex 3.3 H* (0.7-2.0) mmol/L Calcium (8.4-10.2) mg/dL Ionized Calcium Reza (4.5-5.3) mg/dL Iron (50-170) ug/dL TIBC (228-460) ug/dL % Saturation (12.00-45.00) Transferrin (204.0-354.0) mg/dL Ferritin (10.0-291.0) ng/mL Total Bilirubin (0.2-1.3) mg/dL Total Protein (6.3-8.2) g/dL Albumin (3.5-5.0) g/dL Procalcitonin 28.50 H (0.02-0.09) ng/mL Urine Appearance (Clear) Urine Protein (Negative) Urine Bacteria (None) /hpf Urine Mucus (None) /hpf Stool Occult Blood (Negative) Crossmatch 08/26/22 08/26/22 08/26/22 Range/Units 12:53 15:53 15:53 WBC 3.1 L (3.8-10.6) k/uL RBC 2.63 L (3.80-5.40) m/uL Hgb 7.6 L (11.4-16.0) gm/dL Hct 23.5 L (34.0-46.0) % RDW 22.0 H (11.5-15.5) % Plt Count 74 L (150-450) k/uL Lymphocytes # (Manual) (1.0-4.8) k/uL Metamyelocytes # (Man) (0) k/uL Nucleated RBCs (0-0) /100 WBC ABG pCO2 (35-45) mmHg ABG pO2 (83-108) mmHg ABG HCO3 (21-25) mmol/L ABG Total CO2 (19-24) mmol/L ABG O2 Saturation (94-97) % Chloride (98-107) mmol/L Carbon Dioxide (22-30) mmol/L BUN (7-17) mg/dL Creatinine (0.52-1.04) mg/dL Glucose (74-99) mg/dL POC Glucose (mg/dL) 184 H (70-110) mg/dL Plasma Lactic Acid Alex (0.7-2.0) mmol/L Calcium (8.4-10.2) mg/dL Ionized Calcium Reza 4.2 L (4.5-5.3) mg/dL Iron (50-170) ug/dL TIBC (228-460) ug/dL % Saturation (12.00-45.00) Transferrin (204.0-354.0) mg/dL Ferritin (10.0-291.0) ng/mL Total Bilirubin (0.2-1.3) mg/dL Total Protein (6.3-8.2) g/dL Albumin (3.5-5.0) g/dL Procalcitonin (0.02-0.09) ng/mL Urine Appearance (Clear) Urine Protein (Negative) Urine Bacteria (None) /hpf Urine Mucus (None) /hpf Stool Occult Blood (Negative) Crossmatch 08/26/22 08/27/22 08/27/22 Range/Units 20:57 05:46 05:46 WBC 3.0 L (3.8-10.6) k/uL RBC 2.41 L (3.80-5.40) m/uL Hgb 6.9 L* (11.4-16.0) gm/dL Hct 21.3 L (34.0-46.0) % RDW 23.2 H (11.5-15.5) % Plt Count 77 L (150-450) k/uL Lymphocytes # (Manual) 0.18 L (1.0-4.8) k/uL Metamyelocytes # (Man) 0.03 H (0) k/uL Nucleated RBCs 6 H (0-0) /100 WBC ABG pCO2 (35-45) mmHg ABG pO2 (83-108) mmHg ABG HCO3 (21-25) mmol/L ABG Total CO2 (19-24) mmol/L ABG O2 Saturation (94-97) % Chloride 112 H (98-107) mmol/L Carbon Dioxide (22-30) mmol/L BUN 31 H (7-17) mg/dL Creatinine (0.52-1.04) mg/dL Glucose 130 H (74-99) mg/dL POC Glucose (mg/dL) (70-110) mg/dL Plasma Lactic Acid Alex (0.7-2.0) mmol/L Calcium 7.2 L (8.4-10.2) mg/dL Ionized Calcium Reza (4.5-5.3) mg/dL Iron (50-170) ug/dL TIBC (228-460) ug/dL % Saturation (12.00-45.00) Transferrin (204.0-354.0) mg/dL Ferritin (10.0-291.0) ng/mL Total Bilirubin (0.2-1.3) mg/dL Total Protein (6.3-8.2) g/dL Albumin (3.5-5.0) g/dL Procalcitonin (0.02-0.09) ng/mL Urine Appearance (Clear) Urine Protein (Negative) Urine Bacteria (None) /hpf Urine Mucus (None) /hpf Stool Occult Blood Positive A (Negative) Crossmatch Microbiology - Last 24 Hours (Table) 08/25/22 17:59 Blood Culture - Preliminary Blood No Growth after 24 hours Assessment and Plan (1) Anemia Current Visit: Yes Status: Acute Priority: High Code(s): D64.9 - ANEMIA, UNSPECIFIED SNOMED Code(s): 643712395 (2) MDS (myelodysplastic syndrome), low grade Current Visit: Yes Status: Chronic Priority: High Code(s): D46.20 - REFRACTORY ANEMIA WITH EXCESS OF BLASTS, UNSPECIFIED SNOMED Code(s): 631373047 Plan: Anemia: -Hemoglobin 5.2 yesterday. 2 units PRBCs ordered. Hgb today 6.9. Additional unit of PRBCs ordered -Iron studies consistent with GERA. However, at this time due to worries of acute infection will hold iron supplementation -Pt has had 3 bloody BMs since last night with clots. GI on consult, awaiting recommendations -Anemia likely multifactorial r/t infectious process and acute bleeding -Will continue to monitor CBC -Please transfused for hgb less than 7 or if symptomatic MDS: -Progressive decrease in blood counts since May, anemia showing the most change. -It was previously discussed with pt that another bone marrow would be reasonable if no other cause for decreasing counts identified. This was discussed with patient. She is agreeable to the same. F/u planned in [address] Pathak to further discuss potential BM biopsy
--- NOTE | 2022-08-27 15:29 | P.GSCN ---
History of Present Illness Consult date: 08/27/22 History of present illness: CHIEF COMPLAINT: GI bleeding HISTORY OF PRESENT ILLNESS: This is a 62-year-old female who presented to hospital with complaints of shortness of breath. Apparently she had a fall at home and worsening shortness of breath and called EMS. At that time she had had no blood in her stools. She was admitted to the hospital with pneumonia and C OPD exacerbation with anemia. Last night patient had 3 bloody bowel movements with clots. Patient is currently in the ICU. Patient continues to have bleeding. Her stools are maroon is in color. She's had 3 BMs since 8:00 this morning. Hemoglobin on admission was 5.2. It did come up to 7.6 and is now at 6.9. Patient has received 3 units of blood. And has one currently on hold awaiting repeat hemoglobin. Patient also complaining of lower abdominal pain. The pain is mostly in the left lower quadrant. Patient had a prior GI bleed in July during her admission. And at that time EGD and colonoscopy were completed. Results showed erosive esophagitis, hiatal hernia, hemorrhoids, div erticulosis and colon polyp. Patient has known history of MDS and iron deficiency anemia. Has a history of diverticulitis. Patient during this admission also had new onset of atrial fibrillation with rapid ventricular response and had been placed on IV heparin. Patient has known history of COPD. PAST MEDICAL HISTORY: See below PAST SURGICAL HISTORY: See below MEDICATIONS: See below ALLERGIES: See below SOCIAL HISTORY: No illicit drug use. REVIEW OF SYSTEMS: CONSTITUTIONAL: Denies fever or chills. HEENT: Denies blurred vision, vision changes, or eye pain. Denies hemoptysis CARDIOVASCULAR: Denies chest pain or pressure. RESPIRATORY: No shortness of breath. GASTROINTESTINAL: See HPI for pertinent findings HEMATOLOGIC: Denies bleeding disorders. GENITOURINARY: Denies any blood in urine or increased urinary frequency. SKIN: Denies pruitis. Denies rash. PHYSICAL EXAM: VITAL SIGNS: Reviewed GENERAL: Well-developed in no acute distress. HEENT: No sclera icterus. Extraocular movements grossly intact. Moist buccal mucosa. Head is atraumatic, normocephalic. No nasal drainage. ABDOMEN: Soft. Mildly distended. Tenderness palpation of the lower abdomen with more tenderness in the left lower quadrant NEUROLOGIC: Alert and oriented. Cranial nerves II through XII grossly intact. LABORATORY DATA: WBC is 3.0 Hgb 5.2 on admission currently 6.9 with repeat CBC pending platelets 77 Sodium is 139 potassium 3.9 creatinine 0.70 Lactic acid 3.3 Stool for occult blood positive Iron level low at 7 IMAGING: Chest CTA in no evidence of pulmonary embolism. Multifocal airspace disease on background moderate central lobular emphysema. Findings were small left upper l fabián. Indeterminate left adrenal nodule which can be further evaluated with CT or MRI adrenal mass protocol Echo shows an EF around 45%. Moderate aortic insufficiency ASSESSMENT: 1. Acute GI bleed with maroon stools 2. Acute on chronic blood loss anemia 3. History of EGD and colonoscopy in July 2022 with erosive esophagitis, hiatal hernia, hemorrhoids, diverticulosis and colon polyp 4. Prior history of diverticular bleed 5. History of myelodysplastic syndrome 6. Pneumonia PLAN: -Further recommendations forthcoming per surgeon -Continue to monitor hemoglobin -Continue to monitor for any signs or symptoms of bleeding -Transfuse use as needed for HGB less than 7 -Continue IV Protonix -IV heparin has been discontinued -Start clear liquid diet Physician Director Of [employer] note has been reviewed by physician. Signing provider agrees with the documented findings, assessment, and plan of care. I have personally seen and examined the patient, reviewed the [employer] /PAs history, exam and MDM and agree with the assessment and plan as written. Based on total visit time, I have performed more than 50% of the visit. As above: Patient with admission for weakness and shortness of breath. Ap parently she fell at home and was unable to get up initially. While hospitalized patient was started on heparin drip which was discontinued sometime last night. Today the patient has been having bloody stools maroon in color. Patient had evidence of GI bleed last admission. Underwent upper and lower endoscopy with ultrasound as described above. Platelets over 70 at this time. Awaiting repeat hemoglobin. Tagged RBC scan last admission was normal. Will monitor closely off anticoagulation. Await repeat hemoglobin. Past Medical History Past Medical History: Blood Disorder, COPD, Pneumonia Additional Past Medical History / Comment(s): Myelodysplastic syndrome ., Neutropenia., macrocytosis., iron deficiency anemia- hx iron transfusions., emphysema., hospitalized at [facility] 07/16 to 07/27/22 - egd & colonoscopy done showing erosive esophagitis, hiatal hernia, diverticulitis, hemorrhoids, colon polyp., bronchoscopy 07/21/22 ., pneumonia, she received 3 blood transfusions., oxygen at 2L. History of Any Multi-Drug Resistant Organisms: None Reported Past Surgical History: No Surgical Hx Reported Additional Past Surgical History / Comment(s): TEETH PULLED, COLONOSCOPY, EGD, BRONCHOSCOPY Past Anesthesia/Blood Transfusion Reactions: No Reported Reaction Additional Past Anesthesia/Blood Transfusion Reaction / Comm: unknown family hx- pt is adopted, no children Past Psychological History: Anxiety Smoking Status: Former smoker Past Alcohol Use History: None Reported Past Drug Use History: Marijuana - Past Family History Father History Unknown: Yes Additional Family Medical History / Comment(s): unknown, adopted at Mother History Unknown: Yes Additional Family Medical History / Comment(s): unknown, adopted at Medications and Allergies Home Medications Medication Instructions Recorded Confirmed Type ALPRAZolam [Xanax] 0.25 mg PO BID 07/16/22 08/25/22 History Ascorbic Acid [Vitamin C] 500 mg PO DAILY 07/16/22 08/25/22 History Cyanocobalamin (Vitamin B-12) 5,000 mcg PO DAILY 07/16/22 08/25/22 History [Vitamin B-12] Pantoprazole [Protonix] 40 mg PO AC-BID #60 tab 07/26/22 08/25/22 Rx Albuterol Inhaler [Ventolin Hfa 1 - 2 puff INHALATION Q6H PRN 08/16/22 08/25/22 History Inhaler] Albuterol Nebulized [Ventolin 2.5 mg INHALATION RT-QID 08/16/22 08/25/22 History Nebulized] Folic Acid 1 mg PO DAILY 08/16/22 08/25/22 History Ferrous Sulfate [Slow Fe] 142 mg PO DAILY 08/25/22 08/25/22 History Tiotropium [place] [Spiriva] 1 puff IH RT-DAILY 08/25/22 08/25/22 History predniSONE See Taper PO DAILY 08/25/22 08/25/22 History Allergies Allergy/AdvReac Type Severity Reaction Status Date / Time ferumoxytol Allergy Severe Rash/Hives Verified 08/25/22 15:57 Surgical - Exam Vital Signs Temp Pulse Resp BP Pulse Ox 98.1 F 150 H 40 H 146/84 98 08/25/22 14:59 08/25/22 14:59 08/25/22 14:59 08/25/22 14:59 08/25/22 14:59 Results - Labs 08/27/22 05:46 08/27/22 05:46 Abnormal Lab Results - Last 24 Hours (Table) 08/25/22 08/26/22 08/26/22 Range/Units 15:45 03:23 12:16 WBC (3.8-10.6) k/uL RBC (3.80-5.40) m/uL Hgb (11.4-16.0) gm/dL Hct (34.0-46.0) % RDW (11.5-15.5) % Plt Count (150-450) k/uL Lymphocytes # (Manual) (1.0-4.8) k/uL Metamyelocytes # (Man) (0) k/uL Nucleated RBCs (0-0) /100 WBC Chloride (98-107) mmol/L BUN (7-17) mg/dL Glucose (74-99) mg/dL Calcium (8.4-10.2) mg/dL Ionized Calcium Reza (4.5-5.3) mg/dL Iron 7 L (50-170) ug/dL TIBC 147 L (228-460) ug/dL % Saturation 4.81 L (12.00-45.00) Transferrin 105.0 L (204.0-354.0) mg/dL Ferritin 671.0 H (10.0-291.0) ng/mL Procalcitonin 28.50 H (0.02-0.09) ng/mL Stool Occult Blood (Negative) Crossmatch See Detail 08/26/22 08/26/22 08/26/22 Range/Units 15:53 15:53 20:57 WBC 3.1 L (3.8-10.6) k/uL RBC 2.63 L (3.80-5.40) m/uL Hgb 7.6 L (11.4-16.0) gm/dL Hct 23.5 L (34.0-46.0) % RDW 22.0 H (11.5-15.5) % Plt Count 74 L (150-450) k/uL Lymphocytes # (Manual) (1.0-4.8) k/uL Metamyelocytes # (Man) (0) k/uL Nucleated RBCs (0-0) /100 WBC Chloride (98-107) mmol/L BUN (7-17) mg/dL Glucose (74-99) mg/dL Calcium (8.4-10.2) mg/dL Ionized Calcium Reza 4.2 L (4.5-5.3) mg/dL Iron (50-170) ug/dL TIBC (228-460) ug/dL % Saturation (12.00-45.00) Transferrin (204.0-354.0) mg/dL Ferritin (10.0-291.0) ng/mL Procalcitonin (0.02-0.09) ng/mL Stool Occult Blood Positive A (Negative) Crossmatch 08/27/22 08/27/22 Range/Units 05:46 05:46 WBC 3.0 L (3.8-10.6) k/uL RBC 2.41 L (3.80-5.40) m/uL Hgb 6.9 L* (11.4-16.0) gm/dL Hct 21.3 L (34.0-46.0) % RDW 23.2 H (11.5-15.5) % Plt Count 77 L (150-450) k/uL Lymphocytes # (Manual) 0.18 L (1.0-4.8) k/uL Metamyelocytes # (Man) 0.03 H (0) k/uL Nucleated RBCs 6 H (0-0) /100 WBC Chloride 112 H (98-107) mmol/L BUN 31 H (7-17) mg/dL Glucose 130 H (74-99) mg/dL Calcium 7.2 L (8.4-10.2) mg/dL Ionized Calcium Reza (4.5-5.3) mg/dL Iron (50-170) ug/dL TIBC (228-460) ug/dL % Saturation (12.00-45.00) Transferrin (204.0-354.0) mg/dL Ferritin (10.0-291.0) ng/mL Procalcitonin (0.02-0.09) ng/mL Stool Occult Blood (Negative) Crossmatch Microbiology - Last 24 Hours (Table) 08/25/22 17:59 Blood Culture - Preliminary Blood No Growth after 24 hours Diabetes panel 03/24/23 Range/Units 05:46 Sodium 139 (137-145) mmol/L Potassium 3.9 (3.5-5.1) mmol/L Chloride 112 H (98-107) mmol/L Carbon Dioxide 22 (22-30) mmol/L BUN 31 H (7-17) mg/dL Creatinine 0.70 (0.52-1.04) mg/dL Glucose 130 H (74-99) mg/dL Calcium 7.2 L (8.4-10.2) mg/dL Calcium panel 08/26/22 08/27/22 Range/Units 15:53 05:46 Calcium 7.2 L (8.4-10.2) mg/dL Ionized Calcium Reza 4.2 L 4.7 (4.5-5.3) mg/dL Pituitary panel 08/27/22 Range/Units 05:46 Sodium 139 (137-145) mmol/L Potassium 3.9 (3.5-5.1) mmol/L Chloride 112 H (98-107) mmol/L Carbon Dioxide 22 (22-30) mmol/L BUN 31 H (7-17) mg/dL Creatinine 0.70 (0.52-1.04) mg/dL Glucose 130 H (74-99) mg/dL Calcium 7.2 L (8.4-10.2) mg/dL Adrenal panel 08/27/22 Range/Units 05:46 Sodium 139 (137-145) mmol/L Potassium 3.9 (3.5-5.1) mmol/L Chloride 112 H (98-107) mmol/L Carbon Dioxide 22 (22-30) mmol/L BUN 31 H (7-17) mg/dL Creatinine 0.70 (0.52-1.04) mg/dL Glucose 130 H (74-99) mg/dL Calcium 7.2 L (8.4-10.2) mg/dL
[2022-08-27 18:58] LABS: Anisocytosis Moderate; HCT 27.5 % (34.0-46.0); Hypochromasia Slight; MCH 29.1 pg (25.0-35.0); MCHC 32.8 g/dL (31.0-37.0); MCV 88.7 fL (80.0-100.0); Macrocytosis Slight; Mean Platelet Volume 15.9; Poikilocytosis Moderate; RDW 21.2 % (11.5-15.5)
[2022-08-27 19:10] LABS: Band Neutrophils % 3 %; Lymphocytes # (M) 0.07 k/uL (1.0-4.8); Monocytes # (M) 0.29 k/uL (0-1.0); Neutrophils % (M) 89 %; Nucleated Red Blood Cells 5 /100 WBC (0-0); Poikilocytosis (M) Present; Rouleaux Present; Total Cells Counted 200; WBC 3.6 k/uL (3.8-10.6)
[2022-08-27 19:11] LABS: Platelet Count 55 k/uL (150-450)
[2022-08-27] MEDS: PANTOPRAZOLE 40 MG/10 ML VIAL IVP SCH (21:22)
[2022-08-28] MEDS: methylPREDNISolone SOD SUCCI 125 MG/2 ML VIAL IV SCH ×5 (03:31→23:33)
[2022-08-28 05:55] LABS: Anisocytosis Moderate; Hypochromasia Slight; MCH 29.9 pg (25.0-35.0); MCHC 33.2 g/dL (31.0-37.0); MCV 90.2 fL (80.0-100.0); Macrocytosis Slight; Mean Platelet Volume 15.8; Platelet Count 55 k/uL (150-450); Poikilocytosis Slight; RBC 2.66 m/uL (3.80-5.40); RDW 20.5 % (11.5-15.5)
[2022-08-28 06:11] LABS: Potassium 4.5 mmol/L (3.5-5.1)
[2022-08-28 06:12] LABS: African American GFR (CKD) >90 (>60 ml/min/1.73 sqM); Anion Gap 5 mmol/L; Blood Urea Nitrogen 20 mg/dL (7-17); Calcium 7.3 mg/dL (8.4-10.2); Carbon Dioxide 19 mmol/L (22-30); Chloride 113 mmol/L (98-107); Glucose 109 mg/dL (74-99); Non-African American GFR(CKD) >90 (>60 ml/min/1.73 sqM); Sodium 137 mmol/L (137-145)
[2022-08-28] MEDS: FORMOTEROL FUMARATE 20 MCG/2 ML NEBU INHALATION SCH ×2 (07:59→20:44)
[2022-08-28] MEDS: IPRATROPIUM-ALBUTEROL 3 ML NEB INHALATION SCH ×4 (07:59→20:44)
[2022-08-28] MEDS: BUDESONIDE 1 MG/2 ML NEBU INHALATION SCH ×2 (07:59→20:44)
[2022-08-28] MEDS: PANTOPRAZOLE 40 MG/10 ML VIAL IVP SCH ×2 (08:09→21:04)
[2022-08-28] MEDS: METOPROLOL TARTRATE 25 MG TAB PO SCH ×2 (08:10→21:05)
[2022-08-28] MEDS: ALPRAZolam 0.25 MG TAB PO SCH ×2 (08:10→21:05)
[2022-08-28 08:41] LABS: Neutrophils % (M) 88 %; Nucleated Red Blood Cells 10 /100 WBC (0-0); Total Cells Counted 100
[2022-08-28 08:42] LABS: Lymphocytes # (M) 0.24 k/uL (1.0-4.8); Monocytes # (M) 0.12 k/uL (0-1.0); Neutrophils # (M) 2.64 k/uL (1.3-7.7); Rouleaux Present
[2022-08-28 08:43] LABS: Mixed Population RBC Present
--- NOTE | 2022-08-28 10:52 | P.PN ---
Subjective Progress Note Date: 08/28/22 Hospital Course: 62 year old female with MDS, GI bleed, , COPD on 2 L oxygen at home presenting with dyspnea, palpitations, productive cough with occasional hemoptysis, chest pain. Patient was recently hospitalized for pneumonia as well as acute anemia, had a bronchoscopy at that time, patient was eventually discharged on oral antibiotics and prednisone taper. Since presenting to the ED this time, patient has been hypoxic, tachypneic, tachycardic requiring BiPAP for increased work of breathing. Patient was evaluated by pulmonology. Patient was started on IV antibiotics, steroids and bronchodilators for pneumonia as well as COPD exacerbation. CTA chest showed no PE, multifocal airspace disease with moderate emphysema, worsening left upper lobe, also incidental left adrenal nodule. On 08/26, patient had an episode of hypertension and unresponsiveness. Patient was then transferred to the medical ICU. Echocardiogram report reviewed: Mildly impaired LV function with EF 45%, moderate AI. She is now having bloody bowel movements. Getting blood transfusions. Subjective: Patient seen and examined at bedside. She continues to have multiple bloody bowel movements. She claims that she continues to have shortness of breath but improving, and denies any chest pain, abdominal pain, nausea or vomiting. She denies any urinary complaints. She currently has a urinary catheter in place. Pertinent positives and negatives as discussed above, a complete review of systems was performed and all other systems are negative. Vitals Signs Reviewed. General: Tired appearing, In mild distress, appears older than stated age Derm: warm, dry Head: atraumatic, normocephalic, symmetric Eyes: EOMI, no lid lag, anicteric sclera Mouth: no lip lesion, mucus membranes moist Cardiovascular: S1S2 reg, no murmur Lungs: CTA bilateral, no rhonchi, no rales , no accessory muscle use, nasal cannula 4 L Abdominal: soft, nontender to palpation, no guarding, no appreciable organomegaly Ext: no gross muscle atrophy, no edema, no contractures Neuro: CN II-XI grossly intact, no focal neuro deficits Psych: Lethargic, oriented, appropriate affect Data Reviewed Today: Pertinent Labs: WBC 3.0, hemoglobin 8, platelet 55, potassium 4.5, creatinine 0.51, magnesium 3 Chest x-ray is independently interpreted, shows worsening bilateral interstitial lung disease, persistent left upper lobe opacity, worsening Assessment and Plan: Patient is critically ill, has GI bleed, history of MDS. Currently requiring multiple blood transfusions. She remains in the medical ICU. Active: Acute GI bleed, blood loss anemia Acute on chronic hypoxic respiratory failure Septic secondary to left upper lobe pneumonia Acute COPD exacerbation Sinus tachycardia Acute on chronic macrocytic anemia History of MDS Left adrenal nodule, incidental finding -Hemoglobin continues to down trend -Had personal discussion with surgery with regards to management, recommending repeat tagged RBC scan -IV protonic 40 twice a day -On clear liquids per surgery -On 4 L nasal cannula, continue to wean -Pulmonology following -Continue ceftriaxone 2 g IV daily, completed azithromycin course -Currently on bronchodilators, as well as Solu-Medrol 60 mg IV every 6 hours -Cardiology following, patient currently on metoprolol 25 mg twice a day -Needs outpatient follow-up for adrenal nodule Resolved: Acute renal failure Lactic acidosis Hypocalcemia DVT ppx: SCD Code status: Full code Anticipated discharge place: Pending clinical course Anticipated discharge time: Pending clincal course Objective - Vital Signs Vital signs: Vital Signs Temp 97.7 F 08/28/22 04:00 Pulse 110 H 08/28/22 08:26 Resp 24 08/28/22 07:59 BP 117/61 08/28/22 07:00 Pulse Ox 95 08/28/22 08:04 FiO2 40 08/26/22 16:00 Intake & Output 08/27/22 08/28/22 08/28/22 18:59 06:59 18:59 Intake Total 1490 200 20 Output Total 485 400 40 Balance 1005 -200 -20 Weight 66 kg Intake: IV 590 200 20 0.9 KVO 240 200 20 Azithromycin 500 mg In 250 Sodium Chloride 0.9% 250 ml @ 250 mls/hr IVPB DAILY [facility] Rx#:[id number] Potassium Chloride 10 meq 100 In Water For Injection 1 100ml.bag @ 100 mls/hr IVPB Q1H [facility] Rx#: [id number] Oral 280 Blood Product 620 Rc As-1 Unit 310 [id number] Output: Urine 485 400 40 Other: Voiding Method Indwelling Catheter Indwelling Catheter # Bowel Movements 1 - Labs CBC & Chem 7: 08/28/22 05:30 08/28/22 05:30 Labs: Abnormal Lab Results - Last 24 Hours (Table) 08/25/22 08/26/22 08/27/22 Range/Units 15:45 20:57 18:09 WBC 3.6 L (3.8-10.6) k/uL RBC 3.10 L (3.80-5.40) m/uL Hgb 9.0 L D (11.4-16.0) gm/dL Hct 27.5 L (34.0-46.0) % RDW 21.2 H (11.5-15.5) % Plt Count 55 L (150-450) k/uL Lymphocytes # (Manual) 0.07 L (1.0-4.8) k/uL Nucleated RBCs 5 H (0-0) /100 WBC Chloride (98-107) mmol/L Carbon Dioxide (22-30) mmol/L BUN (7-17) mg/dL Creatinine (0.52-1.04) mg/dL Glucose (74-99) mg/dL Calcium (8.4-10.2) mg/dL Magnesium (1.6-2.3) mg/dL Stool Occult Blood Positive A (Negative) Crossmatch See Detail 08/28/22 08/28/22 Range/Units 05:30 05:30 WBC 3.0 L (3.8-10.6) k/uL RBC 2.66 L (3.80-5.40) m/uL Hgb 8.0 L (11.4-16.0) gm/dL Hct 24.0 L (34.0-46.0) % RDW 20.5 H (11.5-15.5) % Plt Count 55 L (150-450) k/uL Lymphocytes # (Manual) 0.24 L (1.0-4.8) k/uL Nucleated RBCs 10 H (0-0) /100 WBC Chloride 113 H (98-107) mmol/L Carbon Dioxide 19 L (22-30) mmol/L BUN 20 H (7-17) mg/dL Creatinine 0.51 L (0.52-1.04) mg/dL Glucose 109 H (74-99) mg/dL Calcium 7.3 L (8.4-10.2) mg/dL Magnesium 3.0 H (1.6-2.3) mg/dL Stool Occult Blood (Negative) Crossmatch Microbiology - Last 24 Hours (Table) 03/22/23 17:59 Blood Culture - Preliminary Blood No Growth after 48 hours
[2022-08-28] MEDS: ACETAMINOPHEN TAB 325 MG TAB PO PRN ×3 (10:54→23:34)
--- NOTE | 2022-08-28 11:11 | P.PN ---
Subjective Progress Note Date: 08/28/22 I'm seeing this patient in new consultation today 08/26/2022 in regard to some shortness of breath that started on Tuesday, approximately 2 days ago. This is a pleasant 62-year-old female with past medical history of severe emphysema with an FEV1 that is 37% of predicted, chronic hypoxic respiratory failure on 2 L home O2, heavy ex-smoker, chronic anemia, and myelodysplastic syndrome. Patient's primary care provider is Dr. Cordero out of [place]. Patient does follow with Dr. Ayala in the office. She normally manages her COPD with a combination of Spiriva and albuterol. She has had a recent bronchoscopy during an admission for pneumonia in late July,. A bronchoscopy with transbronchial biopsy of the right lower lobe and washing/lavage of right lower lobe and left lower lobe was also performed on 08/18/2022 because of persistent diffuse reticulonodular infiltrates of bilat eral lower lobes. BAL cultures from this procedure did not show any pathological organisms. Right lower lobe bronchial biopsy showed benign bronchial mucosa and alveolar tissue with prominent submucosal and interstitial cholesterol clefts associated with foamy histocytes and foreign body reaction. This suggests the possibility of a lipoid pneumonia or obstructive pneumonia. Anyway, approximately 2 days ago, patient started to develop some shortness of breath with an associated productive cough with small amounts hemoptysis, fevers, chills, and chest pain with coughing. Patient also started having palpitations that were worse with activity. Patient's meal on wheels provider ultimately ended up calling EMS. Chest x-ray on arrival showed a new left upper lobe masslike pneumonic consolidation with the chronic parenchymal changes that were seen on previous examinations in bilateral lower lobes. Patient's d-dimer was elevated on admission, and a follow up chest CTA showed no evidence of pulmonary embolism. It did redemonstrate the multifocal airspace disease with background moderate centrilobular emphysema. There also was in indeterminate left adrenal nodule which could represent a benign lipid rich adrenal adenoma, but follow-up was recommended. Patient was admitted to the cardiac stepdown unit. Patient did go into new onset atrial fibrillation with rapid ventricular rate. Cardiology is managing with Cardizem at 5 mg per hour. Patient is also on a low dose heparin infusion at 735 units per hour. Heart rate is still uncontrolled, and is ranging from 110-130 bpm. Patient is currently in bed, in some mild respiratory distress, speaking in phrases. She is on BiPAP settings IPAP 12/ EPAP 6 with a FiO2 50%. She is oxygenating 100% on these settings. Blood and sputum cultures were ordered. Urine Legionella culture is pending. Patient is empirically receiving a combination of azithromycin, vancomycin, and Zosyn. Lactic acid level was elevated on admission at 3.6 and is down to 1.5 currently. Patient has received a total of 2 L normal saline bolus. Patient was negative for influenza, RSV, COVID-19. CBC on arrival showed a WBC count of 5.2, hemoglobin 8.5, hematocrit 27.6. BMP was unremarkable. Normal saline is infusing at KVO. NT proBNP was slightly elevated at 1940. Troponin negative 1. Patient is currently receiving bronchodilators. Vital signs are stable at the moment. The patient is seen today 08/27/2022 in follow-up in the intensive care unit. She developed bloody bowel movements and drops in hemoglobin and was transferred here yesterday for the same. her hemoglobin had dropped to 5.2. She is currently receiving her third unit of packed red blood cells. This morning's hemoglobin is 6.9. white count 3.0. Platelets 77,000. Sodium 139. Potassium 3.9. Bicarb 22. BUN 31. Creatinine 0.70. Glucose 130. Procalcitonin 28.5 Stool for occult blood positive. She is currently on oxygen at 6 L/m per nasal cannula. Normal saline at KVO. Blood pressure remains stable. She remains on bronchodilators. IV Solu-Medrol. antibiotics in the form of ceftriaxone.GI consult has been placed. The patient is seen today 08/28/2022 in follow-up in the intensive care unit. She is currently awake and alert in no acute distress. Maintaining O2 saturations in the 90s on 4 L/m per nasal cannula. Did not require BiPAP last night. No significant rectal bleeding noted. She has normal saline at 20 mL per hour. White count 3.0. Hemoglobin 8.0. Platelets 55,000. Sodium 137. Potassium 4.5. Bicarb 19. BUN 20. Creatinine 0.51. Glucose 109. She remains on DuoNeb inhalations, Pulmicort and Perforomist inhalations, IV Solu-Medrol. Antibiotics in the form of ceftriaxone. Continuing treatment for her left upper lobe pneumonia. Chest x-ray today shows progressing pneumonia bilaterally. Objective - Vital Signs Vital signs: Vital Signs Temp 97.7 F 08/28/22 04:00 Pulse 110 H 08/28/22 08:26 Resp 24 08/28/22 07:59 BP 117/61 08/28/22 07:00 Pulse Ox 95 08/28/22 08:04 FiO2 40 08/26/22 16:00 Intake & Output 08/27/22 08/28/22 08/28/22 18:59 06:59 18:59 Intake Total 1490 200 20 Output Total 485 400 40 Balance 1005 -200 -20 Weight 66 kg Intake: IV 590 200 20 0.9 KVO 240 200 20 Azithromycin 500 mg In 250 Sodium Chloride 0.9% 250 ml @ 250 mls/hr IVPB DAILY [facility] Rx#:[id number] Potassium Chloride 10 meq 100 In Water For Injection 1 100ml.bag @ 100 mls/hr IVPB Q1H [facility] Rx#: [id number] Oral 280 Blood Product 620 Rc As-1 Unit 310 [id number] Output: Urine 485 400 40 Other: Voiding Method Indwelling Catheter Indwelling Catheter # Bowel Movements 1 - Exam GENERAL EXAM: Alert, pale, weak 62-year-old female, on 4 L nasal cannula, fairly comfortable in no apparent distress. HEAD: Normocephalic. EYES: Normal reaction of pupils, equal size. NOSE: Clear with pink turbinates. THROAT: No erythema or exudates. NECK: No masses, no JVD. CHEST: No chest wall deformity. LUNGS: Equal air entry with bilateral scattered rhonchi, end expiratory wheeze, diminished. CVS: S1 and S2 normal with no audible murmur, regular rhythm. ABDOMEN: No hepatosplenomegaly, normal bowel sounds, no guarding or rigidity. SPINE: No scoliosis or deformity SKIN: No rashes CENTRAL NERVOUS SYSTEM: No focal deficits, tone is normal in all 4 extremities. EXTREMITIES: There is no peripheral edema. No clubbing, no cyanosis. Peripheral pulses are intact. - Labs CBC & Chem 7: 08/28/22 05:30 08/28/22 05:30 Labs: Abnormal Lab Results - Last 24 Hours (Table) 08/25/22 08/26/22 08/27/22 Range/Units 15:45 20:57 18:09 WBC 3.6 L (3.8-10.6) k/uL RBC 3.10 L (3.80-5.40) m/uL Hgb 9.0 L D (11.4-16.0) gm/dL Hct 27.5 L (34.0-46.0) % RDW 21.2 H (11.5-15.5) % Plt Count 55 L (150-450) k/uL Lymphocytes # (Manual) 0.07 L (1.0-4.8) k/uL Nucleated RBCs 5 H (0-0) /100 WBC Chloride (98-107) mmol/L Carbon Dioxide (22-30) mmol/L BUN (7-17) mg/dL Creatinine (0.52-1.04) mg/dL Glucose (74-99) mg/dL Calcium (8.4-10.2) mg/dL Magnesium (1.6-2.3) mg/dL Stool Occult Blood Positive A (Negative) Crossmatch See Detail 08/28/22 08/28/22 Range/Units 05:30 05:30 WBC 3.0 L (3.8-10.6) k/uL RBC 2.66 L (3.80-5.40) m/uL Hgb 8.0 L (11.4-16.0) gm/dL Hct 24.0 L (34.0-46.0) % RDW 20.5 H (11.5-15.5) % Plt Count 55 L (150-450) k/uL Lymphocytes # (Manual) 0.24 L (1.0-4.8) k/uL Nucleated RBCs 10 H (0-0) /100 WBC Chloride 113 H (98-107) mmol/L Carbon Dioxide 19 L (22-30) mmol/L BUN 20 H (7-17) mg/dL Creatinine 0.51 L (0.52-1.04) mg/dL Glucose 109 H (74-99) mg/dL Calcium 7.3 L (8.4-10.2) mg/dL Magnesium 3.0 H (1.6-2.3) mg/dL Stool Occult Blood (Negative) Crossmatch Microbiology - Last 24 Hours (Table) 08/25/22 17:59 Blood Culture - Preliminary Blood No Growth after 48 hours Assessment and Plan Assessment: Left upper lobe pneumonia, sepsis. Chest x-ray on arrival showed a new left upper lobe masslike pneumonic consolidation with the chronic parenchymal changes that were seen on previous examinations in bilateral lower lobes. A follow up Chest CTA also redemonstrated the multifocal airspace disease with background moderate centrilobular emphysema. Chest x-ray 08/28/2022 shows worsening bilateral pneumonia. Currently on Rocephin, will discontinue and change to Zosyn Acute COPD exacerbation secondary to above. Patient does have baseline severe emphysema with an FEV1 that is 37% of predicted. Acute on chronic hypoxic respiratory failure normally maintained on 2 L home O2. She is currently on BiPAP settings 05/11 with an FiO2 of 50% Acute GI bleed and has received 3 units of packed red blood cells this admission thus far. Current hemoglobin 8.0 New-onset atrial fibrillation with rapid ventricular rate. Currently on oral beta kedar Myelodysplastic syndrome Chronic iron deficiency anemia with history of iron transfusions. There is a left adrenal nodule that was found on chest CTA which could represent benign lipid rich adrenal adenoma, however, follow-up was recommended. Ex-smoker Plan: The patient was seen and evaluated Chest x-ray, medications and labs reviewed Discontinue ceftriaxone Initiate Zosyn Continue to monitor hemoglobin Continue COPD treatment Titrate the FiO2 as tolerated Follow-up chest x-ray in a.m. Prognosis is guarded We'll continue to follow I have personally seen and examined the patient, performed the documentation and the assessment and plan as written. Number of minutes spent on the visit: 10.
--- NOTE | 2022-08-28 11:12 | P.PN ---
Subjective Progress Note Date: 08/28/22 Principal diagnosis: GI bleed Patient remains in the ICU. Remains tachycardic. Hemoglobin 8 this morning. Has received a total of 3 units. Still having some intermittent blackish maroon-colored stools. Objective - Vital Signs Vital signs: Vital Signs Temp 97.1 F L 08/28/22 08:00 Pulse 101 H 08/28/22 11:00 Resp 16 08/28/22 11:00 BP 146/79 08/28/22 11:00 Pulse Ox 96 08/28/22 11:00 FiO2 40 08/26/22 16:00 Intake & Output 08/27/22 08/28/22 08/28/22 18:59 06:59 18:59 Intake Total 1490 200 200 Output Total 485 400 180 Balance 1005 -200 20 Weight 66 kg Intake: IV 590 200 100 0.9 KVO 240 200 100 Azithromycin 500 mg In 250 Sodium Chloride 0.9% 250 ml @ 250 mls/hr IVPB DAILY [facility] Rx#:[id number] Potassium Chloride 10 meq 100 In Water For Injection 1 100ml.bag @ 100 mls/hr IVPB Q1H [facility] Rx#: [id number] Oral 280 100 Blood Product 620 Rc As-1 Unit 310 [id number] Output: Urine 485 400 180 Other: Voiding Method Indwelling Catheter Indwelling Catheter Indwelling Catheter # Bowel Movements 1 1 - Exam Abdomen: Soft, nontender, nondistended - Labs CBC & Chem 7: 08/28/22 05:30 08/28/22 05:30 Labs: Abnormal Lab Results - Last 24 Hours (Table) 08/25/22 08/26/22 08/27/22 Range/Units 15:45 20:57 18:09 WBC 3.6 L (3.8-10.6) k/uL RBC 3.10 L (3.80-5.40) m/uL Hgb 9.0 L D (11.4-16.0) gm/dL Hct 27.5 L (34.0-46.0) % RDW 21.2 H (11.5-15.5) % Plt Count 55 L (150-450) k/uL Lymphocytes # (Manual) 0.07 L (1.0-4.8) k/uL Nucleated RBCs 5 H (0-0) /100 WBC Chloride (98-107) mmol/L Carbon Dioxide (22-30) mmol/L BUN (7-17) mg/dL Creatinine (0.52-1.04) mg/dL Glucose (74-99) mg/dL Calcium (8.4-10.2) mg/dL Magnesium (1.6-2.3) mg/dL Stool Occult Blood Positive A (Negative) Crossmatch See Detail 08/28/22 08/28/22 Range/Units 05:30 05:30 WBC 3.0 L (3.8-10.6) k/uL RBC 2.66 L (3.80-5.40) m/uL Hgb 8.0 L (11.4-16.0) gm/dL Hct 24.0 L (34.0-46.0) % RDW 20.5 H (11.5-15.5) % Plt Count 55 L (150-450) k/uL Lymphocytes # (Manual) 0.24 L (1.0-4.8) k/uL Nucleated RBCs 10 H (0-0) /100 WBC Chloride 113 H (98-107) mmol/L Carbon Dioxide 19 L (22-30) mmol/L BUN 20 H (7-17) mg/dL Creatinine 0.51 L (0.52-1.04) mg/dL Glucose 109 H (74-99) mg/dL Calcium 7.3 L (8.4-10.2) mg/dL Magnesium 3.0 H (1.6-2.3) mg/dL Stool Occult Blood (Negative) Crossmatch Microbiology - Last 24 Hours (Table) 08/25/22 17:59 Blood Culture - Preliminary Blood No Growth after 48 hours Assessment and Plan (1) GI bleed Narrative/Plan: 62-year-old female with GI bleed. Anticoagulation is held. Continue antiacids. We'll ordered tagged RBC scan. Follow hemoglobin. Current Visit: Yes Status: Acute Code(s): K92.2 - GASTROINTESTINAL HEMORRHAGE, UNSPECIFIED SNOMED Code(s): 67590399
[2022-08-28] MEDS: PIPERACILLIN-TAZOBACTAM 3.375 GM in SODIUM CHLORIDE 0.9% 100 ML IVPB SCH ×2 (12:20→21:05)
--- NOTE | 2022-08-28 12:41 | XR ---
EXAMINATION TYPE: XR chest 1V portable DATE OF EXAM: 08/28/2022 COMPARISON: 08/26/2022 INDICATION: Pneumonia TECHNIQUE: Single frontal view of the chest is obtained. FINDINGS: The heart size is normal. The pulmonary vasculature is normal. Patchy infiltrates are present bilaterally. New infiltrates or developing in the left mid lung throug h the right upper lung. Correlate for atypical pneumonia. Other etiologies should be considered. IMPRESSION: 1. Worsening bilateral lung infiltrates with new infiltrates identified. Correlate for atypical pneum onia. Continued follow-up is recommended.
--- NOTE | 2022-08-28 13:35 | P.PN ---
Subjective Progress Note Date: 08/28/22 -2-3 melanotic stools overnight -Ms. Duque notes having intermittent abdominal pain in the left lower quadrant -She feels her breathing is slowly improving Objective - Vital Signs Vital signs: Vital Signs Temp 97.1 F L 08/28/22 08:00 Pulse 93 08/28/22 11:53 Resp 16 08/28/22 11:00 BP 146/79 08/28/22 11:00 Pulse Ox 96 08/28/22 11:00 FiO2 40 08/26/22 16:00 Intake & Output 08/27/22 08/28/22 08/28/22 18:59 06:59 18:59 Intake Total 1490 200 200 Output Total 485 400 180 Balance 1005 -200 20 Weight 66 kg Intake: IV 590 200 100 0.9 KVO 240 200 100 Azithromycin 500 mg In 250 Sodium Chloride 0.9% 250 ml @ 250 mls/hr IVPB DAILY [facility] Rx#:[id number] Potassium Chloride 10 meq 100 In Water For Injection 1 100ml.bag @ 100 mls/hr IVPB Q1H [facility] Rx#: [id number] Oral 280 100 Blood Product 620 Rc As-1 Unit 310 [id number] Output: Urine 485 400 180 Other: Voiding Method Indwelling Catheter Indwelling Catheter Indwelling Catheter # Bowel Movements 1 1 - Constitutional Constitutional Comment(s): Fatigued appearing General appearance: Present: cooperative - EENT Eyes: Present: EOMI - Respiratory Respiratory: bilateral: wheezing (End expiratory wheezing bilaterally) - Cardiovascular Rhythm: regular - Gastrointestinal General gastrointestinal: Present: distended, soft, tenderness Localized gastrointestinal: tender: LLQ - Integumentary Integumentary: Present: pale - Neurologic Neurologic: Present: CNII-XII intact. Absent: focal deficits - Labs CBC & Chem 7: 08/28/22 05:30 08/28/22 05:30 Labs: Abnormal Lab Results - Last 24 Hours (Table) 08/26/22 08/27/22 08/28/22 Range/Units 20:57 18:09 05:30 WBC 3.6 L 3.0 L (3.8-10.6) k/uL RBC 3.10 L 2.66 L (3.80-5.40) m/uL Hgb 9.0 L D 8.0 L (11.4-16.0) gm/dL Hct 27.5 L 24.0 L (34.0-46.0) % RDW 21.2 H 20.5 H (11.5-15.5) % Plt Count 55 L 55 L (150-450) k/uL Lymphocytes # (Manual) 0.07 L 0.24 L (1.0-4.8) k/uL Nucleated RBCs 5 H 10 H (0-0) /100 WBC Chloride (98-107) mmol/L Carbon Dioxide (22-30) mmol/L BUN (7-17) mg/dL Creatinine (0.52-1.04) mg/dL Glucose (74-99) mg/dL Calcium (8.4-10.2) mg/dL Magnesium (1.6-2.3) mg/dL Stool Occult Blood Positive A (Negative) 08/28/22 Range/Units 05:30 WBC (3.8-10.6) k/uL RBC (3.80-5.40) m/uL Hgb (11.4-16.0) gm/dL Hct (34.0-46.0) % RDW (11.5-15.5) % Plt Count (150-450) k/uL Lymphocytes # (Manual) (1.0-4.8) k/uL Nucleated RBCs (0-0) /100 WBC Chloride 113 H (98-107) mmol/L Carbon Dioxide 19 L (22-30) mmol/L BUN 20 H (7-17) mg/dL Creatinine 0.51 L (0.52-1.04) mg/dL Glucose 109 H (74-99) mg/dL Calcium 7.3 L (8.4-10.2) mg/dL Magnesium 3.0 H (1.6-2.3) mg/dL Stool Occult Blood (Negative) Microbiology - Last 24 Hours (Table) 08/25/22 17:59 Blood Culture - Preliminary Blood No Growth after 48 hours Assessment and Plan (1) Anemia Current Visit: Yes Status: Acute Priority: High Code(s): D64.9 - ANEMIA, UNSPECIFIED SNOMED Code(s): 975228639 (2) MDS (myelodysplastic syndrome), low grade Current Visit: Yes Status: Chronic Priority: High Code(s): D46.20 - REFRACTORY ANEMIA WITH EXCESS OF BLASTS, UNSPECIFIED SNOMED Code(s): 926312851 Plan: Anemia: -Hemoglobin at 8 today following 2 units of packed red blood cells on 08/26/2022, and 1 unit on 08/27/2022 -Hemoglobin did decrease from 9 posttransfusion to 8 this morning with noted episodes of melena overnight -Iron studies consistent with GERA. However, at this time due to worries of acute infection will hold iron supplementation -Surgery consulted and tagged red blood cell scan is ordered for today to identify bleeding source -Anemia likely multifactorial r/t infectious process and acute bleeding from the GI tract -Continue IV PPI -Monitor CBC twice daily with CBC check ordered for this evening -Please transfused for hgb less than 7 or if symptomatic MDS: -Progressive anemia May 2022 -It was previously discussed with pt that another bone marrow would be reasonable if no other cause for decreasing counts identified. This was previously discussed with patient. She is agreeable to the same. F/u planned in [address] Toby Pathak to further discuss potential BM biopsy
--- NOTE | 2022-08-28 16:09 | NM ---
EXAMINATION TYPE: NM GI bleeding DATE OF EXAM: 08/28/2022 HISTORY: GI bleeding COMPARISON: NONE Following administration of 3 ml PYP 24.6 mCi Tc 99m Sodium Pertechnete. Immediate images post inject ion. Images obtained for one hour. FINDINGS: Normal tracer activity is seen in the blood pool of the abdominal aorta, common iliac arteries, femor al arteries, liver, and spleen on all of the interval images. Later images show accumulation of trace r in the urinary bladder, which is consistent with excreted tracer. No abnormal tracer uptake is pres ent outside the blood pool that would be consistent with an active GI bleed. IMPRESSION: Exam fails to show evidence of any active GI bleeding.
[2022-08-28 18:32] LABS: Anisocytosis Moderate; HGB 8.7 gm/dL (11.4-16.0); Hypochromasia Slight; MCH 29.3 pg (25.0-35.0); MCHC 32.2 g/dL (31.0-37.0); Macrocytosis Slight; Mean Platelet Volume 16.4; Poikilocytosis Slight; RBC 2.97 m/uL (3.80-5.40); RDW 20.3 % (11.5-15.5); WBC 6.6 k/uL (3.8-10.6)
[2022-08-28 18:42] LABS: Platelet Count 66 k/uL (150-450)
[2022-08-29 04:41] LABS: Anisocytosis Moderate; HCT 21.8 % (34.0-46.0); HGB 7.3 gm/dL (11.4-16.0); Hypochromasia Slight; MCH 29.8 pg (25.0-35.0); MCHC 33.6 g/dL (31.0-37.0); MCV 88.7 fL (80.0-100.0); Mean Platelet Volume 16.6; Poikilocytosis Slight; RBC 2.46 m/uL (3.80-5.40); RDW 20.5 % (11.5-15.5); WBC 3.6 k/uL (3.8-10.6)
[2022-08-29 04:46] LABS: Platelet Count 48 k/uL (150-450)
[2022-08-29] MEDS: PIPERACILLIN-TAZOBACTAM 3.375 GM in SODIUM CHLORIDE 0.9% 100 ML IVPB SCH ×3 (04:58→20:13)
[2022-08-29] MEDS: ACETAMINOPHEN TAB 325 MG TAB PO PRN ×4 (05:29→23:31)
[2022-08-29] MEDS: methylPREDNISolone SOD SUCCI 125 MG/2 ML VIAL IV SCH ×4 (05:30→23:31)
[2022-08-29] MEDS: METOPROLOL TARTRATE 25 MG TAB PO SCH ×2 (08:05→20:13)
[2022-08-29] MEDS: PANTOPRAZOLE 40 MG/10 ML VIAL IVP SCH ×2 (08:05→20:13)
[2022-08-29] MEDS: ALPRAZolam 0.25 MG TAB PO SCH ×2 (08:05→20:13)
[2022-08-29] MEDS: BUDESONIDE 1 MG/2 ML NEBU INHALATION SCH ×2 (08:25→20:18)
[2022-08-29] MEDS: FORMOTEROL FUMARATE 20 MCG/2 ML NEBU INHALATION SCH ×2 (08:25→20:18)
[2022-08-29] MEDS: IPRATROPIUM-ALBUTEROL 3 ML NEB INHALATION SCH ×4 (08:26→20:18)
--- NOTE | 2022-08-29 10:06 | P.PN ---
Subjective Progress Note Date: 08/29/22 Principal diagnosis: GI bleed Patient doing about the same today. She is still having melanotic/dark maroon stools. Hemoglobin 7.3 from 8.7. Denies pain. Objective - Vital Signs Vital signs: Vital Signs Temp 97.4 F L 08/29/22 04:00 Pulse 79 08/29/22 08:36 Resp 26 H 08/29/22 07:00 BP 132/67 08/29/22 07:00 Pulse Ox 95 08/29/22 08:13 FiO2 40 08/26/22 16:00 Intake & Output 08/28/22 08/29/22 08/29/22 18:59 06:59 18:59 Intake Total 440 690 20 Output Total 365 500 35 Balance 75 190 -15 Weight 65.5 kg Intake: IV 340 240 20 0.9 KVO 240 240 20 Piperacillin-Tazobactam 3 100 .375 gm In Sodium Chloride 0.9% 100 ml @ 25 mls/hr IVPB Q8H [facility] Rx#: [id number] Oral 100 450 Output: Urine 365 500 35 Other: Voiding Method Indwelling Catheter Indwelling Catheter # Bowel Movements 1 1 1 - Exam Abdomen: Soft, nontender, nondistended - Labs CBC & Chem 7: 08/29/22 04:07 08/28/22 05:30 Labs: Abnormal Lab Results - Last 24 Hours (Table) 08/25/22 08/28/22 08/29/22 Range/Units 15:45 17:56 04:07 WBC 3.6 L (3.8-10.6) k/uL RBC 2.97 L 2.46 L (3.80-5.40) m/uL Hgb 8.7 L 7.3 L (11.4-16.0) gm/dL Hct 27.0 L 21.8 L (34.0-46.0) % RDW 20.3 H 20.5 H (11.5-15.5) % Plt Count 66 L 48 L (150-450) k/uL Crossmatch See Detail Microbiology - Last 24 Hours (Table) 08/25/22 17:59 Blood Culture - Preliminary Blood No Growth after 72 hours 08/28/22 08:28 Sputum Culture - Preliminary Sputum 08/28/22 08:28 Legionella Culture - Preliminary Sputum Assessment and Plan (1) GI bleed Narrative/Plan: Patient still having intermittent melanotic stools. We'll proceed with upper endoscopy tomorrow. Nothing by mouth after midnight. Current Visit: Yes Status: Acute Code(s): K92.2 - GASTROINTESTINAL HEMORRHAGE, UNSPECIFIED SNOMED Code(s): 18837817
--- NOTE | 2022-08-29 10:17 | P.PN ---
Subjective Progress Note Date: 08/29/22 Hospital Course: 62 year old female with MDS, GI bleed, , COPD on 2 L oxygen at home presenting with dyspnea, palpitations, productive cough with occasional hemoptysis, chest pain. Patient was recently hospitalized for pneumonia as well as acute anemia, had a bronchoscopy at that time, patient was eventually discharged on oral antibiotics and prednisone taper. Since presenting to the ED this time, patient has been hypoxic, tachypneic, tachycardic requiring BiPAP for increased work of breathing. Patient was evaluated by pulmonology. Patient was started on IV antibiotics, steroids and bronchodilators for pneumonia as well as COPD exacerbation. CTA chest showed no PE, multifocal airspace disease with moderate emphysema, worsening left upper lobe, also incidental left adrenal nodule. On 08/26, patient had an episode of hypertension and unresponsiveness. Patient was then transferred to the medical ICU. Echocardiogram report reviewed: Mildly impaired LV function with EF 45%, moderate AI. She is now having bloody bowel movements. She is status post 3 units of PRBCs. Surgery was consulted. Tagged RBC scan did not show any active GI bleeding. Continues to have pretty bowel m ovements. Subjective: Patient seen and examined at bedside. She continues to have multiple bloody bowel movements. She claims that she continues to have shortness of breath but improving, and denies any chest pain, abdominal pain, nausea or vomiting. She denies any urinary complaints. She currently has a urinary catheter in place. Pertinent positives and negatives as discussed above, a complete review of systems was performed and all other systems are negative. Vitals Signs Reviewed. General: Tired appearing, In mild distress, appears older than stated age Derm: warm, dry Head: atraumatic, normocephalic, symmetric Eyes: EOMI, no lid lag, anicteric sclera Mouth: no lip lesion, mucus membranes moist Cardiovascular: S1S2 reg, no murmur Lungs: CTA bilateral, no rhonchi, no rales , no accessory muscle use, nasal cannula 3 L Abdominal: soft, nontender to palpation, no guarding, no appreciable organomegaly Ext: no gross muscle atrophy, no edema, no contractures Neuro: CN II-XI grossly intact, no focal neuro deficits Psych: Lethargic, oriented, appropriate affect Data Reviewed Today: Pertinent Labs: WBC 3.6, hemoglobin 7.3, platelets 48 Tagged RBC scan report reviewed, no active GI blood Assessment and Plan: Patient is critically ill, has GI bleed, history of MDS. Currently requiring multiple blood transfusions. She remains in the medical ICU. Patient is a poor prognosis. Active: Acute GI bleed, blood loss anemia Acute on chronic hypoxic respiratory failure Septic secondary to left upper lobe pneumonia Acute COPD exacerbation Sinus tachycardia Acute on chronic macrocytic anemia History of MDS Left adrenal nodule, incidental finding -Hemoglobin continues to down trend, repeat CBC tomorrow, patient did receive heparin earlier during the admission, avoid anticoagulation or antiplatelet. -Surgery note reviewed: Upper endoscopy tomorrow -IV protonic 40 twice a day -On clear liquids per surgery, nothing by mouth overnight -On 3 L nasal cannula, continue to wean -Pulmonology -Antibiotics switched to Zosyn 3.375 g IV every 8 hours -Currently on bronchodilators, as well as Solu-Medrol 60 mg IV every 6 hours -Cardiology following, patient currently on metoprolol 25 mg twice a day -Oncology follow-up, mainly Biopsy -Needs outpatient follow-up for adrenal nodule Resolved: Acute renal failure Lactic acidosis Hypocalcemia DVT ppx: SCD Code status: Full code Anticipated discharge place: Pending clinical course Anticipated discharge time: Pending clincal course Objective - Vital Signs Vital signs: Vital Signs Temp 97.4 F L 08/29/22 04:00 Pulse 79 08/29/22 08:36 Resp 26 H 08/29/22 07:00 BP 132/67 08/29/22 07:00 Pulse Ox 95 08/29/22 08:13 FiO2 40 08/26/22 16:00 Intake & Output 08/28/22 08/29/22 08/29/22 18:59 06:59 18:59 Intake Total 440 690 20 Output Total 365 500 35 Balance 75 190 -15 Weight 65.5 kg Intake: IV 340 240 20 0.9 KVO 240 240 20 Piperacillin-Tazobactam 3 100 .375 gm In Sodium Chloride 0.9% 100 ml @ 25 mls/hr IVPB Q8H [facility] Rx#: [id number] Oral 100 450 Output: Urine 365 500 35 Other: Voiding Method Indwelling Catheter Indwelling Catheter # Bowel Movements 1 1 1 - Labs CBC & Chem 7: 08/29/22 04:07 08/28/22 05:30 Labs: Abnormal Lab Results - Last 24 Hours (Table) 08/25/22 08/28/22 08/29/22 Range/Units 15:45 17:56 04:07 WBC 3.6 L (3.8-10.6) k/uL RBC 2.97 L 2.46 L (3.80-5.40) m/uL Hgb 8.7 L 7.3 L (11.4-16.0) gm/dL Hct 27.0 L 21.8 L (34.0-46.0) % RDW 20.3 H 20.5 H (11.5-15.5) % Plt Count 66 L 48 L (150-450) k/uL Crossmatch See Detail Microbiology - Last 24 Hours (Table) 08/25/22 17:59 Blood Culture - Preliminary Blood No Growth after 72 hours 08/28/22 08:28 Sputum Culture - Preliminary Sputum 08/28/22 08:28 Legionella Culture - Preliminary Sputum
[2022-08-29] MEDS: SODIUM CHLORIDE 0.9% 1,000 ML IV SCH (11:09)
--- NOTE | 2022-08-29 11:10 | P.PN ---
Subjective Progress Note Date: 08/29/22 I'm seeing this patient in new consultation today 08/26/2022 in regard to some shortness of breath that started on Tuesday, approximately 2 days ago. This is a pleasant 62-year-old female with past medical history of severe emphysema with an FEV1 that is 37% of predicted, chronic hypoxic respiratory failure on 2 L home O2, heavy ex-smoker, chronic anemia, and myelodysplastic syndrome. Patient's primary care provider is Dr. Cordero out of [place]. Patient does follow with Dr. Ayala in the office. She normally manages her COPD with a combination of Spiriva and albuterol. She has had a recent bronchoscopy during an admission for pneumonia in late July,. A bronchoscopy with transbronchial biopsy of the right lower lobe and washing/lavage of right lower lobe and left lower lobe was also performed on 08/18/2022 because of persistent diffuse reticulonodular infiltrates of bilat eral lower lobes. BAL cultures from this procedure did not show any pathological organisms. Right lower lobe bronchial biopsy showed benign bronchial mucosa and alveolar tissue with prominent submucosal and interstitial cholesterol clefts associated with foamy histocytes and foreign body reaction. This suggests the possibility of a lipoid pneumonia or obstructive pneumonia. Anyway, approximately 2 days ago, patient started to develop some shortness of breath with an associated productive cough with small amounts hemoptysis, fevers, chills, and chest pain with coughing. Patient also started having palpitations that were worse with activity. Patient's meal on wheels provider ultimately ended up calling EMS. Chest x-ray on arrival showed a new left upper lobe masslike pneumonic consolidation with the chronic parenchymal changes that were seen on previous examinations in bilateral lower lobes. Patient's d-dimer was elevated on admission, and a follow up chest CTA showed no evidence of pulmonary embolism. It did redemonstrate the multifocal airspace disease with background moderate centrilobular emphysema. There also was in indeterminate left adrenal nodule which could represent a benign lipid rich adrenal adenoma, but follow-up was recommended. Patient was admitted to the cardiac stepdown unit. Patient did go into new onset atrial fibrillation with rapid ventricular rate. Cardiology is managing with Cardizem at 5 mg per hour. Patient is also on a low dose heparin infusion at 735 units per hour. Heart rate is still uncontrolled, and is ranging from 110-130 bpm. Patient is currently in bed, in some mild respiratory distress, speaking in phrases. She is on BiPAP settings IPAP 12/ EPAP 6 with a FiO2 50%. She is oxygenating 100% on these settings. Blood and sputum cultures were ordered. Urine Legionella culture is pending. Patient is empirically receiving a combination of azithromycin, vancomycin, and Zosyn. Lactic acid level was elevated on admission at 3.6 and is down to 1.5 currently. Patient has received a total of 2 L normal saline bolus. Patient was negative for influenza, RSV, COVID-19. CBC on arrival showed a WBC count of 5.2, hemoglobin 8.5, hematocrit 27.6. BMP was unremarkable. Normal saline is infusing at KVO. NT proBNP was slightly elevated at 1940. Troponin negative 1. Patient is currently receiving bronchodilators. Vital signs are stable at the moment. The patient is seen today 08/27/2022 in follow-up in the intensive care unit. She developed bloody bowel movements and drops in hemoglobin and was transferred here yesterday for the same. her hemoglobin had dropped to 5.2. She is currently receiving her third unit of packed red blood cells. This morning's hemoglobin is 6.9. white count 3.0. Platelets 77,000. Sodium 139. Potassium 3.9. Bicarb 22. BUN 31. Creatinine 0.70. Glucose 130. Procalcitonin 28.5 Stool for occult blood positive. She is currently on oxygen at 6 L/m per nasal cannula. Normal saline at KVO. Blood pressure remains stable. She remains on bronchodilators. IV Solu-Medrol. antibiotics in the form of ceftriaxone.GI consult has been placed. The patient is seen today 08/28/2022 in follow-up in the intensive care unit. She is currently awake and alert in no acute distress. Maintaining O2 saturations in the 90s on 4 L/m per nasal cannula. Did not require BiPAP last night. No significant rectal bleeding noted. She has normal saline at 20 mL per hour. White count 3.0. Hemoglobin 8.0. Platelets 55,000. Sodium 137. Potassium 4.5. Bicarb 19. BUN 20. Creatinine 0.51. Glucose 109. She remains on DuoNeb inhalations, Pulmicort and Perforomist inhalations, IV Solu-Medrol. Antibiotics in the form of ceftriaxone. Continuing treatment for her left upper lobe pneumonia. Chest x-ray today shows progressing pneumonia bilaterally. Patient is seen today 08/29/2022 in follow-up in the intensive care unit. She is currently sitting up in bed. Awake and alert in no acute distress. She is still quite weak and fatigued. She is maintaining O2 saturations in the 90s on 3 L/m per nasal cannula. She has normal saline at 50 MLS per hour. She has been having ongoing issues with bloody bowel movements. The plan is for EGD tomorrow. Current hemoglobin 7.3. White count 3.6. Platelets 48,000. If she has received 3 units of packed red blood cells this admission thus far. She is continued on DuoNeb inhalations, Pulmicort and Perforomist inhalations, IV Solu- Medrol. Antibiotics in the form of Zosyn. Objective - Vital Signs Vital signs: Vital Signs Temp 96.3 F L 08/29/22 08:00 Pulse 80 08/29/22 10:00 Resp 23 08/29/22 10:00 BP 122/71 08/29/22 10:00 Pulse Ox 94 L 08/29/22 10:00 FiO2 40 08/26/22 16:00 Intake & Output 08/28/22 08/29/22 08/29/22 18:59 06:59 18:59 Intake Total 440 690 270 Output Total 365 500 115 Balance 75 190 155 Weight 65.5 kg Intake: IV 340 240 270 0.9 240 240 170 Piperacillin-Tazobactam 3 100 100 .375 gm In Sodium Chloride 0.9% 100 ml @ 25 mls/hr IVPB Q8H [facility] Rx#: [id number] Oral 100 450 Output: Urine 365 500 115 Other: Voiding Method Indwelling Catheter Indwelling Catheter Indwelling Catheter # Bowel Movements 1 1 1 - Exam GENERAL EXAM: Alert, pale, weak 62-year-old female, on 3 L nasal cannula, comfortable in no apparent distress. HEAD: Normocephalic. EYES: Normal reaction of pupils, equal size. NOSE: Clear with pink turbinates. THROAT: No erythema or exudates. NECK: No masses, no JVD. CHEST: No chest wall deformity. LUNGS: Equal air entry with bilateral scattered rhonchi, end expiratory wheeze, diminished. CVS: S1 and S2 normal with no audible murmur, regular rhythm. ABDOMEN: No hepatosplenomegaly, normal bowel sounds, no guarding or rigidity. SPINE: No scoliosis or deformity SKIN: No rashes CENTRAL NERVOUS SYSTEM: No focal deficits, tone is normal in all 4 extremities. EXTREMITIES: There is no peripheral edema. No clubbing, no cyanosis. Peripheral pulses are intact. - Labs CBC & Chem 7: 08/29/22 04:07 08/28/22 05:30 Labs: Abnormal Lab Results - Last 24 Hours (Table) 08/25/22 08/28/22 08/29/22 Range/Units 15:45 17:56 04:07 WBC 3.6 L (3.8-10.6) k/uL RBC 2.97 L 2.46 L (3.80-5.40) m/uL Hgb 8.7 L 7.3 L (11.4-16.0) gm/dL Hct 27.0 L 21.8 L (34.0-46.0) % RDW 20.3 H 20.5 H (11.5-15.5) % Plt Count 66 L 48 L (150-450) k/uL Crossmatch See Detail Microbiology - Last 24 Hours (Table) 08/28/22 08:28 Gram Stain - Preliminary Sputum Sputum Culture - Preliminary 08/25/22 17:59 Blood Culture - Preliminary Blood No Growth after 72 hours 08/28/22 08:28 Legionella Culture - Preliminary Sputum Assessment and Plan Assessment: Left upper lobe pneumonia, sepsis. Chest x-ray on arrival showed a new left upper lobe masslike pneumonic consolidation with the chronic parenchymal changes that were seen on previous examinations in bilateral lower lobes. A follow up Chest CTA also redemonstrated the multifocal airspace disease with background moderate centrilobular emphysema. Chest x-ray 08/28/2022 shows worsening bilateral pneumonia. Currently on Zosyn Acute COPD exacerbation secondary to above. Patient does have baseline severe emphysema with an FEV1 that is 37% of predicted. Acute on chronic hypoxic respiratory failure normally maintained on 2 L home O2. She is currently on BiPAP settings 05/11 with an FiO2 of 50% Acute GI bleed and has received 3 units of packed red blood cells this admission thus far. Current hemoglobin 7.3. Tagged RBC scan revealed no evidence of active GI bleeding New-onset atrial fibrillation with rapid ventricular rate. Currently on oral beta kedar Myelodysplastic syndrome Chronic iron deficiency anemia with history of iron transfusions. There is a left adrenal nodule that was found on chest CTA which could represent benign lipid rich adrenal adenoma, however, follow-up was recommended. Ex-smoker Plan: The patient was seen and evaluated GI bleed scan, medications and labs reviewed Current hemoglobin 7.3, plan for EGD tomorrow Continue to monitor hemoglobin Continue Zosyn Continue COPD treatment Titrate the FiO2 as tolerated Follow-up chest x-ray in a.m. Prognosis is guarded We'll continue to follow I have personally seen and examined the patient, performed the documentation and the assessment and plan as written. Number of minutes spent on the visit: 10.
[2022-08-30] MEDS: HYDROmorphone 0.5 MG/0.5 ML SYRINGE IVP PRN (02:09)
[2022-08-30] MEDS: PIPERACILLIN-TAZOBACTAM 3.375 GM in SODIUM CHLORIDE 0.9% 100 ML IVPB SCH ×3 (03:49→20:45)
[2022-08-30] MEDS: SODIUM CHLORIDE 0.9% 1,000 ML IV SCH (05:39)
[2022-08-30] MEDS: methylPREDNISolone SOD SUCCI 125 MG/2 ML VIAL IV SCH ×4 (05:39→23:23)
[2022-08-30] MEDS: ACETAMINOPHEN TAB 325 MG TAB PO PRN ×2 (06:32→17:55)
--- NOTE | 2022-08-30 07:19 | XR ---
EXAMINATION TYPE: XR chest 1V portable DATE OF EXAM: 08/30/2022 HISTORY: Shortness of breath. COMPARISON: 08/28/2022 TECHNIQUE: Single view of the chest is submitted. FINDINGS: Demonstrated are scattered senescent parenchymal change. Again noted are airspace infiltrates within the left upper lobe as well as the right lower lobe and l eft lower lobe without significant change. The heart is stable. Hilar and mediastinal structures are within normal limits. Degenerative changes are seen of the dorsal spine. IMPRESSION: 1. Again noted are airspace infiltrates within the left upper lobe as well as the right lower lobe a nd left lower lobe without significant change. Continued follow-up until resolution is advised.
[2022-08-30 07:24] LABS: Anisocytosis Moderate; HCT 24.8 % (34.0-46.0); HGB 7.8 gm/dL (11.4-16.0); Hypochromasia Slight; MCH 28.6 pg (25.0-35.0); MCHC 31.3 g/dL (31.0-37.0); MCV 91.4 fL (80.0-100.0); Macrocytosis Slight; Mean Platelet Volume 16.6; Poikilocytosis Slight; RBC 2.71 m/uL (3.80-5.40); RDW 20.7 % (11.5-15.5)
[2022-08-30 07:39] LABS: African American GFR (CKD) >90 (>60 ml/min/1.73 sqM); Anion Gap 5 mmol/L; Blood Urea Nitrogen 12 mg/dL (7-17); Calcium 7.3 mg/dL (8.4-10.2); Carbon Dioxide 20 mmol/L (22-30); Chloride 114 mmol/L (98-107); Glucose 111 mg/dL (74-99); Magnesium 2.9 mg/dL (1.6-2.3); Non-African American GFR(CKD) >90 (>60 ml/min/1.73 sqM); Potassium 4.1 mmol/L (3.5-5.1); Sodium 139 mmol/L (137-145)
[2022-08-30] MEDS: BUDESONIDE 1 MG/2 ML NEBU INHALATION SCH ×2 (07:53→19:33)
[2022-08-30] MEDS: IPRATROPIUM-ALBUTEROL 3 ML NEB INHALATION SCH ×4 (07:53→19:33)
[2022-08-30] MEDS: FORMOTEROL FUMARATE 20 MCG/2 ML NEBU INHALATION SCH ×2 (08:12→19:33)
[2022-08-30 08:21] LABS: Platelet Count 55 k/uL (150-450)
[2022-08-30] MEDS ORDERED: VANCOMYCIN IV PER PHARMACY 1 EACH MISC MISCELLANE PRN (08:39)
--- NOTE | 2022-08-30 08:39 | P.PN ---
Subjective Progress Note Date: 08/30/22 On today's evaluation of 08/30/2022, the patient still being treated for a multifocal pneumonia with extensive left upper lobe consolidation. The patient currently is on oxygen at 3 L/m nasal cannula. This is most likely a bacterial pneumonia. Pro-calcitonin level at time of admission was 28.5 and has not been checked since. The white cell count is low at 3.6, with a hemoglobin of 7.3. Noted the patient has been having episode of GI bleed and during this current hospitalization, she has received a total of 3 units of packed RBC. The patient has been having melanotic stools. We have GI surgeries on the case and were still waiting for that interventions and scoping. Meanwhile, I repeat chest x- ray was done and it shows still multilobar and mitral focal pneumonia most extensive in the left upper lobe in addition to the left lower lobe and the right lower lobe. The patient remains on Zosyn. Hemodynamically the patient is off no pressors. She is stable. IV fluids are running at the rate of 0.9 at the rate of 50 mL an hour. She is known to have advanced COPD with an FEV1 of 37% of predicted. She is an ex-smoker. She has chronic anemia and mild dysplasia. She has also chronic systolic heart failure with an ejection fraction of based on echocardiogram that was done during this current admission. This echocardiogram was done on 08/26/2022 and there is also evidence of mode rate degree of aortic insufficiency and moderate left ventricular hypertrophy. Her cardiac rhythm is currently sinus. It was thought that the patient was having episodes of itchy fibrillation. She was given IV heparin which obviously facilitated her GI bleeding.. Note that the patient has undergone previous EGD and colonoscopy on 08/21/2020. The patient was found to have mild chronic gastritis, H. pylori was negative, the patient also had benign squamous glandular mucosal changes in mild chronic esophagitis and was negative for metaplasia. 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 In terms of her lung involvement, the patient has been seen Dr. Ayala on outpatient basis for shortness of breath and the patient is known to have chronic nodular, interstitial areas and areas of consolidation.. A CAT scan of the chest that was done on 05/12/2022 showed waxing and waning patchy airspace opacities and nodular changes. Note that along with history of mild dysplasia, inflammatory processes/infectious processes has been considered. Note that the bronchoscopy was done by Dr. Ayala on 08/18/2022 and the cultures came back negative. Furthermore, transbronchial biopsy of the lung was done and it showed benign mucosa and alveolar tissue. No necrotizing granulomatous process or fungal elements identified. There was possibly some endogenous lipid pneumonia. Condition is obviously progressed. I reviewed the follow-up CAT scan of the chest showed multifocal changes with extensive worsening in the left upper lobe Objective - Vital Signs Vital signs: Vital Signs Temp 97.4 F L 08/30/22 08:00 Pulse 99 08/30/22 08:13 Resp 20 08/30/22 08:00 BP 131/71 08/30/22 08:00 Pulse Ox 94 L 08/30/22 08:00 FiO2 40 08/26/22 16:00 Intake & Output 08/29/22 08/30/22 08/30/22 18:59 06:59 18:59 Intake Total 870 775 125 Output Total 555 735 90 Balance 315 40 35 Weight 66.8 kg Intake: IV 770 775 125 0.9% @ 50 570 600 100 Piperacillin-Tazobactam 3 200 175 25 .375 gm In Sodium Chloride 0.9% 100 ml @ 25 mls/hr IVPB Q8H [facility] Rx#: [id number] Tube Feeding 100 Output: Urine 555 735 90 Other: Voiding Method Indwelling Catheter Indwelling Catheter Indwelling Catheter # Bowel Movements 1 - Exam GENERAL EXAM: Alert, pale, weak 62-year-old female, on 3 L nasal cannula, comfortable in no apparent distress. HEAD: Normocephalic. EYES: Normal reaction of pupils, equal size. NOSE: Clear with pink turbinates. THROAT: No erythema or exudates. NECK: No masses, no JVD. CHEST: No chest wall deformity. LUNGS: Equal air entry with bilateral scattered rhonchi, end expiratory wheeze, diminished. CVS: S1 and S2 normal with no audible murmur, regular rhythm. ABDOMEN: No hepatosplenomegaly, normal bowel sounds, no guarding or rigidity. SPINE: No scoliosis or deformity SKIN: No rashes CENTRAL NERVOUS SYSTEM: No focal deficits, tone is normal in all 4 extremities. EXTREMITIES: There is no peripheral edema. No clubbing, no cyanosis. Peripheral pulses are intact. - Labs CBC & Chem 7: 08/30/22 06:57 08/30/22 06:57 Labs: Abnormal Lab Results - Last 24 Hours (Table) 08/30/22 Range/Units 06:57 Chloride 114 H (98-107) mmol/L Carbon Dioxide 20 L (22-30) mmol/L Creatinine 0.42 L (0.52-1.04) mg/dL Glucose 111 H (74-99) mg/dL Calcium 7.3 L (8.4-10.2) mg/dL Magnesium 2.9 H (1.6-2.3) mg/dL Microbiology - Last 24 Hours (Table) 08/25/22 17:59 Blood Culture - Preliminary Blood No Growth after 96 hours 08/28/22 08:28 Gram Stain - Preliminary Sputum Sputum Culture - Preliminary Assessment and Plan Plan: Left upper lobe pneumonia, sepsis. Chest x-ray on arrival showed a new left upper lobe masslike pneumonic consolidation with the chronic parenchymal changes that were seen on previous examinations in bilateral lower lobes. A follow up Chest CTA also redemonstrated the multifocal airspace disease with background moderate centrilobular emphysema. Chest x-ray 08/28/2022 shows worsening bilateral pneumonia. The patient underwent a bronchoscopy on 08/18/[address] Ayala, and the findings of essentially nonspecific. Obviously, this is a completely nondiagnostic bronchoscopy with negative cultures and benign tissue on the transbronchial biopsies in the right lower lobe. Since then, the patient's condition is progressed and the pro calcitonin level is elevated and the patient developed extensive consolidation of the left upper lobe. Acute COPD exacerbation secondary to above. Patient does have baseline severe emphysema with an FEV1 that is 37% of predicted. Acute on chronic hypoxic respiratory failure normally maintained on 2 L home O2. She is currently on BiPAP settings 05/11 with an FiO2 of 50%, currently on BiPAP at 3 L/m nasal cannula Acute GI bleed and has received 3 units of packed red blood cells this admission thus far. Current hemoglobin 7.3. Tagged RBC scan revealed no evidence of active GI bleeding, previous EGD and colonoscopy showed some mild gastritis, esophagitis, colonic and rectal polyps in the form of tubular adenoma. No active bleeding at this point in time and the patient is on no anticoagulants. New-onset atrial fibrillation with rapid ventricular rate. Currently in normal sinus rhythm Mild systolic heart failure with ejection fraction 45% in addition to moderate aortic insufficiency and concentric LVH Myelodysplastic syndrome Chronic iron deficiency anemia with history of iron transfusions. There is a left adrenal nodule that was found on chest CTA which could represent benign lipid rich adrenal adenoma, however,v Ex-smoker Plan: Continue Zosyn Add Levaquin 750 mg every 24 hours Add Vancomycin Sputum sample gtain and cx Repeat Procalcitonin Suspect a superimposed bacterial infections pressure was elevated pro-calcitonin level Underlying pathology in terms of her mother pulmonary infiltrates scattered he is not known. Previous bronchoscopy was nondiagnostic and the patient will need another bronchoscopy once her condition permits. Continue to monitor hemoglobin Continue COPD treatment Titrate the FiO2 as tolerated Follow-up chest x-ray in a.m. Prognosis is guarded We'll continue to follow
[2022-08-30] MEDS: VANCOMYCIN 1,250 MG in SODIUM CHLORIDE 0.9% 250 ML IVPB SCH ×2 (09:49→17:55)
[2022-08-30] MEDS: LEVOFLOXACIN 750MG-D5W PMX 750 MG in DEXTROSE/WATER 1 150ML.BAG IVPB SCH (09:49)
[2022-08-30] MEDS: PANTOPRAZOLE 40 MG/10 ML VIAL IVP SCH ×2 (09:52→20:45)
[2022-08-30] MEDS: ALPRAZolam 0.25 MG TAB PO SCH ×2 (09:52→18:21)
[2022-08-30] MEDS: METOPROLOL TARTRATE 25 MG TAB PO SCH ×2 (09:52→20:45)
[2022-08-30 10:17] LABS: Lymphocytes # (M) 0.14 k/uL (1.0-4.8); Monocytes # (M) 0.11 k/uL (0-1.0); Neutrophils # (M) 3.29 k/uL (1.3-7.7); Neutrophils % (M) 94 %; Nucleated Red Blood Cells 7 /100 WBC (0-0); Total Cells Counted 200; WBC 3.5 k/uL (3.8-10.6)
[2022-08-30 10:18] LABS: Polychromasia Present
[2022-08-30 10:19] LABS: Rouleaux Present
--- NOTE | 2022-08-30 11:57 | P.PN ---
Subjective Progress Note Date: 08/30/22 Principal diagnosis: anemia Upon visit today patient is resting comfortably in bed. Patient is reporting feeling ok today. She reports having 1 dark stool this morning, no clots noted. Reports overall improvement in breathing. Pt has EGD scheduled today. No other reported complaints Objective - Vital Signs Vital signs: Vital Signs Temp 97.4 F L 08/30/22 08:00 Pulse 95 08/30/22 11:00 Resp 19 08/30/22 11:00 BP 133/66 08/30/22 11:00 Pulse Ox 96 08/30/22 11:00 FiO2 40 08/26/22 16:00 Intake & Output 08/29/22 08/30/22 08/30/22 18:59 06:59 18:59 Intake Total 870 775 675 Output Total 555 735 300 Balance 315 40 375 Weight 66.8 kg Intake: IV 770 775 675 0.9% @ 50 570 600 250 Levaquin 150 Piperacillin-Tazobactam 3 200 175 25 .375 gm In Sodium Chloride 0.9% 100 ml @ 25 mls/hr IVPB Q8H [facility] Rx#: [id number] Vancomycin 250 Tube Feeding 100 Output: Urine 555 735 300 Other: Voiding Method Indwelling Catheter Indwelling Catheter Indwelling Catheter # Bowel Movements 1 - Constitutional General appearance: Present: average body habitus, no acute distress - EENT Eyes: Present: anicteric sclerae, EOMI ENT: Present: hearing grossly normal - Respiratory Details: breathing is even and unlabored - Cardiovascular Details: skin warm and dry - Integumentary Integumentary: Present: pale - Neurologic Neurologic Comment(s): grossly intact - Musculoskeletal Musculoskeletal: Present: generalized weakness - Psychiatric Psychiatric: Present: A&O x's 3, appropriate affect, intact judgment & insight - Labs CBC & Chem 7: 08/30/22 06:57 08/30/22 06:57 Labs: Abnormal Lab Results - Last 24 Hours (Table) 08/30/22 08/30/22 Range/Units 06:57 06:57 WBC 3.5 L (3.8-10.6) k/uL RBC 2.71 L (3.80-5.40) m/uL Hgb 7.8 L (11.4-16.0) gm/dL Hct 24.8 L (34.0-46.0) % RDW 20.7 H (11.5-15.5) % Plt Count 55 L (150-450) k/uL Lymphocytes # (Manual) 0.14 L (1.0-4.8) k/uL Nucleated RBCs 7 H (0-0) /100 WBC Chloride 114 H (98-107) mmol/L Carbon Dioxide 20 L (22-30) mmol/L Creatinine 0.42 L (0.52-1.04) mg/dL Glucose 111 H (74-99) mg/dL Calcium 7.3 L (8.4-10.2) mg/dL Magnesium 2.9 H (1.6-2.3) mg/dL Microbiology - Last 24 Hours (Table) 08/28/22 08:28 Gram Stain - Preliminary Sputum Sputum Culture - Preliminary Yeast species 08/25/22 17:59 Blood Culture - Preliminary Blood No Growth after 96 hours Assessment and Plan (1) Anemia Current Visit: Yes Status: Acute Priority: High Code(s): D64.9 - ANEMIA, UNSPECIFIED SNOMED Code(s): 687953127 (2) MDS (myelodysplastic syndrome), low grade Current Visit: Yes Status: Chronic Priority: High Code(s): D46.20 - REFRACTORY ANEMIA WITH EXCESS OF BLASTS, UNSPECIFIED SNOMED Code(s): 247413085 Plan: Anemia: -Hemoglobin 7.8 today. She has received 3 units of PRBCs, last unit given on 08/27. Platelets 55,000 -Iron studies consistent with GERA. However, at this time due to worries of acute infection will hold iron supplementation -Pt has had 1 dark stool today, no clots. GI on consult, EGD scheduled for today. Nuclear medicine tagged RBC scan negative for acute bleed -Anemia likely multifactorial r/t infectious process and acute GI bleed -Will continue to monitor CBC -DIC and HIT workup ordered -Please transfused for hgb less than 7 or if symptomatic MDS: -Progressive decrease in blood counts since May, anemia showing the most change. -It was previously discussed with pt that another bone marrow would be reasonable if no other cause for decreasing counts identified. This was discussed with patient. She is agreeable to the same. F/u planned in [address] Pathak to further discuss potential BM biopsy
--- NOTE | 2022-08-30 13:23 | P.PN ---
Subjective Progress Note Date: 08/30/22 62 year old female with MDS, GI bleed, COPD on 2 L oxygen at home presenting with dyspnea, palpitations, productive cough with occasional hemoptysis, chest pain. Patient was recently hospitalized for pneumonia as well as acute anemia, had a bronchoscopy at that time, patient was eventually discharged on oral antibiotics and prednisone taper. Since presenting to the ED this time, patient has been hypoxic, tachypneic, tachycardic requiring BiPAP for increased work of breathing. Patient was evaluated by pulmonology. Patient was started on IV antibiotics, steroids and bronchodilators for pneumonia as well as COPD exacerbation. CTA chest showed no PE, multifocal airspace disease with moderate emphysema, worsening left upper lobe, also incidental left adrenal nodule. On 08/26, patient had an episode of hypertension and unresponsiveness. Patient was then transferred to the medical ICU. Echocardiogram report reviewed: Mildly impaired LV function with EF 45%, moderate AI. She is now having bloody bowel movements. She is status post 3 units of PRBCs. Surgery was consulted. Tagged RBC scan did not show any active GI bleeding. Patient was seen and examined. No acute events overnight. Patient reports improvement in her breathing. Plan is for EGD today. Patient reports hunger. General: Tired appearing, In mild distress, appears older than stated age Derm: warm, dry Head: atraumatic, normocephalic, symmetric Eyes: EOMI, no lid lag, anicteric sclera Mouth: no lip lesion, mucus membranes moist Cardiovascular: S1S2 reg, no murmur Lungs: CTA bilateral, no rhonchi, no rales , no accessory muscle use, nasal cannula 3 L Abdominal: soft, nontender to palpation, no guarding, no appreciable organomegaly Ext: no gross muscle atrophy, no edema, no contractures Neuro: no focal neuro deficits Psych: Alert and oriented x 3 #Acute GI bleed, blood loss anemia #Acute on chronic hypoxic respiratory failure #Septic secondary to left upper lobe pneumonia #Acute COPD exacerbation #Sinus tachycardia #Acute on chronic macrocytic anemia #History of MDS #Left adrenal nodule, incidental finding Based on my assessment of this patient, this patient meets a high complexity level of care. I have reviewed the following mobile sales consultant notes: Pulmonology note 08/30, add Vancomycin and Levaquin, sputum culture, repeat pro calcitonin, suspect superimposed bacterial PNA I have reviewed the results of the following tests: CBC shows WBC count of 3.5, hemoglobin is 7.8 and platelet count of 55. This is likely related to MDS. Hemoglobin worsened due to GI bleed requiring 3 unit PRBC. Hemoglobin today improved from 7.3 yesterday. I have ordered the following tests: CBC and BMP ordered tomorrow morning. I have discussed the care of this patient with the following independent historian: Case was discussed with nursing, patient with dark brown bowel movement this morning. I have independently interpreted the following test below: Chest x-ray shows multifocal infiltrates essentially unchanged from yesterday's chest x-ray. I have discussed the management of this patient with the following physician: None. This patient has a moderate risk of morbidity due to the following reasons: Patient has a history of COPD on 2L home O2 with severe exacerbation or progress ion of disease which poses a threat to life or bodily function. She is currently being treated for pneumonia with Vancomycin 1250 mg IV every 8 hours which is nephrotoxic and requires daily monitoring of her renal function. Levaquin 750 mg IV daily has been added along with Zosyn 3.375 g IV every 8 hours which she was already on. Her hemoglobin has also been dropping to GI bleed. Her hemoglobin is 7.8 today and there are plans for EGD. Continue Protonix 40 mg IV twice a day. Objective - Vital Signs Vital signs: Vital Signs Temp 97.6 F 08/30/22 12:00 Pulse 76 08/30/22 12:30 Resp 21 08/30/22 12:00 BP 131/64 08/30/22 12:00 Pulse Ox 96 08/30/22 12:00 FiO2 40 08/26/22 16:00 Intake & Output 08/29/22 08/30/22 08/30/22 18:59 06:59 18:59 Intake Total 870 775 725 Output Total 555 735 350 Balance 315 40 375 Weight 66.8 kg Intake: IV 770 775 725 0.9% @ 50 570 600 300 Levaquin 150 Piperacillin-Tazobactam 3 200 175 25 .375 gm In Sodium Chloride 0.9% 100 ml @ 25 mls/hr IVPB Q8H [facility] Rx#: [id number] Vancomycin 250 Tube Feeding 100 Output: Urine 555 735 350 Other: Voiding Method Indwelling Catheter Indwelling Catheter Indwelling Catheter # Bowel Movements 1 - Labs CBC & Chem 7: 08/30/22 06:57 08/30/22 06:57 Labs: Abnormal Lab Results - Last 24 Hours (Table) 08/30/22 08/30/22 Range/Units 06:57 06:57 WBC 3.5 L (3.8-10.6) k/uL RBC 2.71 L (3.80-5.40) m/uL Hgb 7.8 L (11.4-16.0) gm/dL Hct 24.8 L (34.0-46.0) % RDW 20.7 H (11.5-15.5) % Plt Count 55 L (150-450) k/uL Lymphocytes # (Manual) 0.14 L (1.0-4.8) k/uL Nucleated RBCs 7 H (0-0) /100 WBC Chloride 114 H (98-107) mmol/L Carbon Dioxide 20 L (22-30) mmol/L Creatinine 0.42 L (0.52-1.04) mg/dL Glucose 111 H (74-99) mg/dL Calcium 7.3 L (8.4-10.2) mg/dL Magnesium 2.9 H (1.6-2.3) mg/dL Microbiology - Last 24 Hours (Table) 08/28/22 08:28 Gram Stain - Preliminary Sputum Sputum Culture - Preliminary Yeast species 08/25/22 17:59 Blood Culture - Preliminary Blood No Growth after 96 hours
[2022-08-30] MEDS ORDERED: PROPOFOL 10 MG/ML 20 ML VIAL IV ONE (13:53)
[2022-08-30] MEDS ORDERED: IV FLUID CONTINUATION 1,000 ML IV ONE (13:53)
[2022-08-30] MEDS ORDERED: LIDOCAINE 2% INJ 20 MG/ML (2 ML VIAL) ONE (13:53)
[2022-08-30] MEDS ORDERED: PEG 3350 (236 GM/BTL) + LYTES 4,000 ML BOTTLE PO ONE (14:08)
--- NOTE | 2022-08-30 14:09 | P.PCN ---
Date of Procedure: 08/30/22 Procedure(s) Performed: Preoperative Dx: GI bleed Postoperative Dx: Minimal gastritis, hiatal hernia Procedure: EGD with Bx Anesthesia: Sedation Endoscopist: Dr. Peralta Specimens: Antrum Endoscopic Procedure: The patient was on the endoscopy table in the left decubitus position. The Olympus gastroscope was inserted into the oropharynx and passed under direct visualization to the region of the third portion of the duodenum. From that point the scope was slowly withdrawn inspecting all surfaces carefully. There were no neoplastic inflammatory or polypoid lesions throughout the duodenum. The pylorus was widely patent. The stomach was carefully inspected. There was minimal gastritis present. A biopsy of the antrum took place to rule out H. pylori. Retroflexion revealed a small sliding hiatal hernia. The esophagus was then carefully examined. There were no neoplastic inflammatory or polypoid lesions throughout the visualized esophagus. The patient was then taken to the recovery room in stable condition per anesthesia guidelines. Recommendations: No evidence of upper GI bleed. Will prep for repeat colonoscopy tomorrow since the patient is still having bloody stools.
[2022-08-30 15:56] LABS: Prothrombin Time 10.2 sec (9.0-12.0)
[2022-08-30 15:59] LABS: Partial Thromboplastin Time 20.5 sec (22.0-30.0)
[2022-08-31] MEDS: VANCOMYCIN 1,250 MG in SODIUM CHLORIDE 0.9% 250 ML IVPB SCH ×2 (01:27→08:40)
[2022-08-31] MEDS: SODIUM CHLORIDE 0.9% 1,000 ML IV SCH (01:28)
[2022-08-31] MEDS: PIPERACILLIN-TAZOBACTAM 3.375 GM in SODIUM CHLORIDE 0.9% 100 ML IVPB SCH (03:58)
[2022-08-31] MEDS: ALPRAZolam 0.25 MG TAB PO PRN ×3 (04:00→20:34)
--- NOTE | 2022-08-31 06:05 | XR ---
EXAMINATION TYPE: XR chest 1V portable DATE OF EXAM: 08/31/2022 CLINICAL HISTORY: Difficulty breathing progress study. TECHNIQUE: Single AP portable semiupright view of the chest is obtained. COMPARISON: Chest x-ray from one day earlier and older studies. FINDINGS: Dense consolidation bilateral lower lungs and left upper lung remain present. Background i ncreased reticular markings bilaterally is redemonstrated. Stable mild cardiomegaly. Osseous structur es remain intact. IMPRESSION: Continued left upper lung consolidation and bilateral lower lung acute infiltrates. No si gnificant change from one day earlier.
[2022-08-31] MEDS: methylPREDNISolone SOD SUCCI 125 MG/2 ML VIAL IV SCH ×4 (06:33→23:04)
[2022-08-31] MEDS ORDERED: VANCOMYCIN TROUGH DUE 1 EACH MISC MISCELLANE ONE (08:00)
[2022-08-31] MEDS: IPRATROPIUM-ALBUTEROL 3 ML NEB INHALATION SCH ×4 (08:24→19:28)
[2022-08-31] MEDS: BUDESONIDE 1 MG/2 ML NEBU INHALATION SCH ×2 (08:24→19:28)
[2022-08-31] MEDS: FORMOTEROL FUMARATE 20 MCG/2 ML NEBU INHALATION SCH ×2 (08:24→19:28)
--- NOTE | 2022-08-31 08:25 | P.PN ---
Subjective Progress Note Date: 08/31/22 On today's evaluation of 08/30/2022, the patient still being treated for a multifocal pneumonia with extensive left upper lobe consolidation. The patient currently is on oxygen at 3 L/m nasal cannula. This is most likely a bacterial pneumonia. Pro-calcitonin level at time of admission was 28.5 and has not been checked since. The white cell count is low at 3.6, with a hemoglobin of 7.3. Noted the patient has been having episode of GI bleed and during this current hospitalization, she has received a total of 3 units of packed RBC. The patient has been having melanotic stools. We have GI surgeries on the case and were still waiting for that interventions and scoping. Meanwhile, I repeat chest x- ray was done and it shows still multilobar and mitral focal pneumonia most extensive in the left upper lobe in addition to the left lower lobe and the right lower lobe. The patient remains on Zosyn. Hemodynamically the patient is off no pressors. She is stable. IV fluids are running at the rate of 0.9 at the rate of 50 mL an hour. She is known to have advanced COPD with an FEV1 of 37% of predicted. She is an ex-smoker. She has chronic anemia and mild dysplasia. She has also chronic systolic heart failure with an ejection fraction of based on echocardiogram that was done during this current admission. This echocardiogram was done on 08/26/2022 and there is also evidence of mode rate degree of aortic insufficiency and moderate left ventricular hypertrophy. Her cardiac rhythm is currently sinus. It was thought that the patient was having episodes of itchy fibrillation. She was given IV heparin which obviously facilitated her GI bleeding.. Note that the patient has undergone previous EGD and colonoscopy on 08/21/2020. The patient was found to have mild chronic gastritis, H. pylori was negative, the patient also had benign squamous glandular mucosal changes in mild chronic esophagitis and was negative for metaplasia. 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 In terms of her lung involvement, the patient has been seen Dr. Ayala on outpatient basis for shortness of breath and the patient is known to have chronic nodular, interstitial areas and areas of consolidation.. A CAT scan of the chest that was done on 05/12/2022 showed waxing and waning patchy airspace opacities and nodular changes. Note that along with history of mild dysplasia, inflammatory processes/infectious processes has been considered. Note that the bronchoscopy was done by Dr. Ayala on 08/18/2022 and the cultures came back negative. Furthermore, transbronchial biopsy of the lung was done and it showed benign mucosa and alveolar tissue. No necrotizing granulomatous process or fungal elements identified. There was possibly some endogenous lipid pneumonia. Condition is obviously progressed. I reviewed the follow-up CAT scan of the chest showed multifocal changes with extensive worsening in the left upper lobe On today's evaluation of the 2022, the patient is being seen for a follow- up. The patient has an acute hypoxic respiratory failure with evidence of multifocal pneumonia. Exact etiology is not clear. The patient's condition is progressed. Previous bronchoscopy has not yielded any microbial growth. Previous transbronchial biopsies were also nondiagnostic. As such, I brought in the patient's antibiotic coverage. For now, she is on a combination of Zosyn and Levaquin and vancomycin. Her breathing is still labored and the patient is somewhat tachypneic. Pulse ox in the order of 89% on 6 L of oxygen by nasal cannula. White suppositive 3.5 at the patient has chronic pancytopenia with a hemoglobin of 7.8 and a platelet count of 5. A repeat chest x-ray done today showed multilobar patchy pulmonary infiltrates involving the left upper lobe, left lower lobe and the right lower lobe. There is also some cavitation developing in the right lower lobe on today's chest x-ray. Findings essentially the same without any significant change since yesterday. Note that the patient's pro-calcitonin level that was obtained yesterday was at 1.89 and this is up significantly from 28 and as such antibiotic coverage will be kept the same. As mentioned, there is no microbial growth obtained on this patient. The sputum was positive for yeast. In terms of hemodynamics, the patient is hemodynamically stable. She is currently on IV fluids at 50 mL an hour of serafin l saline. Her echocardiogram has shown chronic systolic heart failure and mild impairment of the left ventricle ejection fraction which was in order of 45%. The patient also has moderate degree of aortic regurgitation. She has advanced COPD and she has an FEV1 of 37% of predicted and she is an ex-smoker. On a separate note, there is no episodes of ongoing GI bleed. Hemoglobin is stable at 7.8. The patient underwent a EGD yesterday that showed mild gastritis and hiatal hernia. There was no evidence of an acute bleeding. Neurologically, she is alert and awake. She is tolerating her diet. No nausea. No emesis. No other significant events overnight. Objective - Vital Signs Vital signs: Vital Signs Temp 97.4 F L 08/31/22 04:00 Pulse 75 08/31/22 06:00 Resp 12 08/31/22 06:00 BP 133/62 08/31/22 06:00 Pulse Ox 96 08/31/22 06:00 FiO2 40 08/26/22 16:00 Intake & Output 08/30/22 08/31/22 08/31/22 18:59 06:59 18:59 Intake Total 1225 2225 Output Total 790 1110 Balance 435 1115 Weight 70 kg Intake: IV 1225 1025 0.9% @ 50 600 600 Levaquin 150 Piperacillin-Tazobactam 3 125 175 .375 gm In Sodium Chloride 0.9% 100 ml @ 25 mls/hr IVPB Q8H [facility] Rx#: [id number] Vancomycin 250 250 Oral 1200 Output: Urine 790 1110 Other: Voiding Method Indwelling Catheter Indwelling Catheter # Bowel Movements 1 1 - Exam GENERAL EXAM: Alert, pale, weak 62-year-old female, on 6 L nasal cannula, comfortable in no apparent distress. HEAD: Normocephalic. EYES: Normal reaction of pupils, equal size. NOSE: Clear with pink turbinates. THROAT: No erythema or exudates. NECK: No masses, no JVD. CHEST: No chest wall deformity. LUNGS: Equal air entry with bilateral scattered rhonchi, end expiratory wheeze, diminished. CVS: S1 and S2 normal with no audible murmur, regular rhythm. ABDOMEN: No hepatosplenomegaly, normal bowel sounds, no guarding or rigidity. SPINE: No scoliosis or deformity SKIN: No rashes CENTRAL NERVOUS SYSTEM: No focal deficits, tone is normal in all 4 extremities. EXTREMITIES: There is no peripheral edema. No clubbing, no cyanosis. Claudia pheral pulses are intact. - Labs CBC & Chem 7: 08/30/22 06:57 08/30/22 06:57 Labs: Abnormal Lab Results - Last 24 Hours (Table) 08/30/22 08/30/22 08/30/22 Range/Units 06:57 06:57 14:22 WBC 3.5 L (3.8-10.6) k/uL RBC 2.71 L (3.80-5.40) m/uL Hgb 7.8 L (11.4-16.0) gm/dL Hct 24.8 L (34.0-46.0) % RDW 20.7 H (11.5-15.5) % Plt Count 55 L (150-450) k/uL Lymphocytes # (Manual) 0.14 L (1.0-4.8) k/uL Nucleated RBCs 7 H (0-0) /100 WBC APTT 20.5 L (22.0-30.0) sec Procalcitonin 1.89 H (0.02-0.09) ng/mL Microbiology - Last 24 Hours (Table) 08/25/22 17:59 Blood Culture - Preliminary Blood No Growth after 120 hours 08/28/22 08:28 Gram Stain - Preliminary Sputum Sputum Culture - Preliminary Yeast species Assessment and Plan Plan: Left upper lobe pneumonia, sepsis. Chest x-ray on arrival showed a new left upper lobe masslike pneumonic consolidation with the chronic parenchymal changes that were seen on previous examinations in bilateral lower lobes. A follow up C hest CTA also redemonstrated the multifocal airspace disease with background moderate centrilobular emphysema. Chest x-ray 08/28/2022 shows worsening bilateral pneumonia. The patient underwent a bronchoscopy on 08/18/[address] Ayala, and the findings of essentially nonspecific. Obviously, this is a completely nondiagnostic bronchoscopy with negative cultures and benign tissue on the transbronchial biopsies in the right lower lobe. The patient's pro- calcitonin level has been dropping and the patient is currently on broad- spectrum antibiotics. Chest x-ray still showing multifocal pneumonia with some early cavitation of the right lower lobe. The patient is currently on a combination of Zosyn and Levaquin and vancomycin and the patient is also on steroids. Acute COPD exacerbation secondary to above. Patient does have baseline severe emphysema with an FEV1 that is 37% of predicted. Acute on chronic hypoxic respiratory failure normally maintained on 2 L home O2. She is currently on BiPAP settings /6 with an FiO2 of 50%, currently off BiPAP and the patient is currently on 6 L of O2 nasal cannula. Breathing is labored. Acute GI bleed and has received 3 units of packed red blood cells this admission thus far. Current hemoglobin 7.8. Tagged RBC scan revealed no evidence of active GI bleeding, previous EGD and colonoscopy showed some mild gastritis, esophagitis, colonic and rectal polyps in the form of tubular adenoma. No active bleeding at this point in time and the patient is on no anticoagulants. A repeat EGD was done yesterday and the findings were essentially negative for any acute bleeding. New-onset atrial fibrillation with rapid ventricular rate. Currently in normal sinus rhythm Mild systolic heart failure with ejection fraction 45% in addition to moderate aortic insufficiency and concentric LVH Myelodysplastic syndrome, the patient has pancytopenia Chronic iron deficiency anemia with history of iron transfusions. There is a left adrenal nodule that was found on chest CTA which could represent benign lipid rich adrenal adenoma, however,v Ex-smoker Plan: Continue Zosyn, Levaquin and vancomycin Repeat chest x-ray and pro-calcitonin level in a.m. Titrate oxygen flow to maintain a saturation above 90% Another sputum sample was collected Suspect a superimposed bacterial infections pressure was elevated pro-calcitonin level It is possible that the patient has been infected with a resistant gram-negative bacteria. I'm going to discontinue the Zosyn and switch this patient IV meropenem Underlying pathology in terms of her mother pulmonary infiltrates scattered he is not known. Previous bronchoscopy was nondiagnostic and the patient will need another bronchoscopy once her condition permits. Continue to monitor hemoglobin Continue COPD treatment Titrate the FiO2 as tolerated Follow-up chest x-ray in a.m. Prognosis is guarded We'll continue to follow May need another hematology evaluation, and obviously another bronchoscopy if her condition permits. Very critical situation, further recommendations are to follow, evaluation within a more than 30 minutes Time with Patient: Greater than 30
[2022-08-31] MEDS: LACTATED RINGERS 1,000 ML IV SCH (08:26)
[2022-08-31] MEDS: PANTOPRAZOLE 40 MG/10 ML VIAL IVP SCH ×2 (08:36→20:34)
[2022-08-31] MEDS: LEVOFLOXACIN 750MG-D5W PMX 750 MG in DEXTROSE/WATER 1 150ML.BAG IVPB SCH (08:36)
[2022-08-31] MEDS: HYDROmorphone 0.5 MG/0.5 ML SYRINGE IVP PRN ×2 (08:36→18:16)
[2022-08-31] MEDS: METOPROLOL TARTRATE 25 MG TAB PO SCH ×2 (08:36→20:34)
[2022-08-31 09:16] LABS: African American GFR (CKD) >90 (>60 ml/min/1.73 sqM); Anion Gap 6 mmol/L; Blood Urea Nitrogen 8 mg/dL (7-17); Calcium 7.4 mg/dL (8.4-10.2); Carbon Dioxide 26 mmol/L (22-30); Chloride 111 mmol/L (98-107); Glucose 113 mg/dL (74-99); Non-African American GFR(CKD) >90 (>60 ml/min/1.73 sqM); Potassium 3.5 mmol/L (3.5-5.1); Sodium 143 mmol/L (137-145)
[2022-08-31 09:32] LABS: Anisocytosis Moderate; HCT 26.7 % (34.0-46.0); HGB 8.7 gm/dL (11.4-16.0); Hypochromasia Slight; MCH 28.8 pg (25.0-35.0); MCHC 32.6 g/dL (31.0-37.0); MCV 88.6 fL (80.0-100.0); Mean Platelet Volume 16.8; Poikilocytosis Moderate; RBC 3.02 m/uL (3.80-5.40); RDW 21.1 % (11.5-15.5); WBC 6.4 k/uL (3.8-10.6)
[2022-08-31 09:37] LABS: Platelet Count 77 k/uL (150-450)
[2022-08-31] MEDS: MEROPENEM 1 GM in SODIUM CHLORIDE 0.9% 100 ML IVPB SCH ×3 (09:46→23:04)
[2022-08-31] MEDS ORDERED: IV FLUID CONTINUATION 1,000 ML IV ONE (11:37)
[2022-08-31] MEDS ORDERED: PROPOFOL 10 MG/ML 20 ML VIAL IV ONE (11:37)
--- NOTE | 2022-08-31 12:10 | P.PCN ---
Date of Procedure: 08/31/22 Procedure(s) Performed: PREOPERATIVE DIAGNOSIS: Rectal bleeding POSTOPERATIVE DIAGNOSIS: Mild diverticulosis PROCEDURE: Colonoscopy ANESTHESIA: MAC SURGEON: Sai Peralta M.D. SPECIMENS: None ENDOSCOPIC PROCEDURE: The patient was placed on the endoscopy table in the left decubitus position. The Olympus colonoscope was inserted into the anus and passed under direct visualization to the base of the cecum. The appendiceal orifice was visualized. From that point the scope was slowly withdrawn inspect ing all surfaces carefully. There were no neoplastic inflammatory or polypoid lesions throughout the cecum, ascending, transverse, descending, sigmoid and rectum. There was mild left-sided diverticulosis noted. There was no blood throughout the colon. The patient had small hemorrhoids without any evidence of recent or active bleeding. The patient was taken to the recovery room in stable condition per anesthesia guidelines. RECOMMENDATIONS: Resume diet. Will check small bowel series to evaluate for possible small bowel source of bleeding. Patient's diverticulosis remains a possible source of bleeding however it was much milder than expected. A very small flat 3-4 mm polyp in the transverse colon was seen in the transverse colon region on insertion but this was not visualized as the scope was withdrawn. This appeared quite benign. Consider repeat colonoscopy in one to 2 years.
--- NOTE | 2022-08-31 13:57 | P.PN ---
Subjective Progress Note Date: 08/31/22 62 year old female with MDS, GI bleed, COPD on 2 L oxygen at home presenting with dyspnea, palpitations, productive cough with occasional hemoptysis, chest pain. Patient was recently hospitalized for pneumonia as well as acute anemia, had a bronchoscopy at that time, patient was eventually discharged on oral antibiotics and prednisone taper. Since presenting to the ED this time, patient has been hypoxic, tachypneic, tachycardic requiring BiPAP for increased work of breathing. Patient was evaluated by pulmonology. Patient was started on IV antibiotics, steroids and bronchodilators for pneumonia as well as COPD exacerbation. CTA chest showed no PE, multifocal airspace disease with moderate emphysema, worsening left upper lobe, also incidental left adrenal nodule. On 08/26, patient had an episode of hypertension and unresponsiveness. Patient was then transferred to the medical ICU. Echocardiogram report reviewed: Mildly impaired LV function with EF 45%, moderate AI. She is now having bloody bowel movements. She is status post 3 units of PRBCs. Surgery was consulted. Tagged RBC scan did not show any active GI bleeding. EGD was done 08/30 which was negative for bleed. C-scope was done on 08/31 which showed mild diverticulosis. Patient was seen and examined prior to her colonoscopy. No acute events overnight. Patient reports improvement in her breathing. Plan is for C-scope today. Patient reports hunger. She is on 6L NC. General: Tired appearing, In mild distress, appears older than stated age Derm: warm, dry Head: atraumatic, normocephalic, symmetric Eyes: EOMI, no lid lag, anicteric sclera Mouth: no lip lesion, mucus membranes moist Cardiovascular: S1S2 reg, no murmur Lungs: CTA bilateral, no rhonchi, no rales , no accessory muscle use, nasal cannula 6 L Abdominal: soft, nontender to palpation, no guarding, no appreciable organomegaly Ext: no gross muscle atrophy, no edema, no contractures Neuro: no focal neuro deficits Psych: Alert and oriented x 3 #Acute GI bleed, blood loss anemia #Acute on chronic hypoxic respiratory failure #Septic secondary to left upper lobe pneumonia #Acute COPD exacerbation #Acute on chronic macrocytic anemia #History of MDS #Left adrenal nodule, incidental finding Resolved: Sinus tachycardia Based on my assessment of this patient, this patient meets a high complexity level of care. I have reviewed the following life skills consultant notes: Pulmonology note 08/31, switch Zosyn to Meropenem, patient will need another bronchoscopy once her condition permits. I have reviewed the results of the following tests: CBC shows hemoglobin is 8.7 and platelet count of 77. This is likely related to MDS. Hemoglobin worsened due to GI bleed requiring 3 unit PRBC. Hemoglobin today improved from 7.8 yesterday. I have ordered the following tests: CBC and BMP ordered tomorrow morning. I have discussed the care of this patient with the following independent historian: None. I have independently interpreted the following test below: Chest x-ray shows multifocal infiltrates essentially unchanged from yesterday's chest x-ray. I have discussed the management of this patient with the following physician: None. This patient has a high risk of morbidity due to the following reasons: Patient has a history of COPD on 2L home O2 with severe exacerbation or progression of disease which poses a threat to life or bodily function. She is currently being treated for pneumonia with Vancomycin 1250 mg IV every 8 hours which is nephrotoxic and requires daily monitoring of her renal function. C ontinued on Levaquin 750 mg IV daily and Zosyn 3.375 g IV every 8 hours has been switched to Meropenem 1g IV every 8 hours. Her hemoglobin has remained stable over the past 2 days. Her hemoglobin is 8.7 today and there are plans for colonoscopy. Continue Protonix 40 mg IV twice a day. Objective - Vital Signs Vital signs: Vital Signs Temp 97.4 F L 08/31/22 12:00 Pulse 82 08/31/22 13:00 Resp 15 08/31/22 13:00 BP 142/69 08/31/22 13:00 Pulse Ox 94 L 08/31/22 13:00 FiO2 40 08/26/22 16:00 Intake & Output 08/30/22 08/31/22 08/31/22 18:59 06:59 18:59 Intake Total 1225 2225 900 Output Total 790 1110 450 Balance 435 1115 450 Weight 70 kg 70 kg Intake: IV 1225 1025 800 0.9% @ 50 600 600 200 Levaquin 150 100 Piperacillin-Tazobactam 3 125 175 .375 gm In Sodium Chloride 0.9% 100 ml @ 25 mls/hr IVPB Q8H [facility] Rx#: [id number] Vancomycin 250 250 250 Oral 1200 100 Output: Urine 790 1110 450 Other: Voiding Method Indwelling Catheter Indwelling Catheter Indwelling Catheter # Bowel Movements 1 1 1 - Labs CBC & Chem 7: 08/31/22 08:15 08/31/22 08:15 Labs: Abnormal Lab Results - Last 24 Hours (Table) 08/30/22 08/30/22 08/31/22 Range/Units 06:57 14:22 08:15 RBC 3.02 L (3.80-5.40) m/uL Hgb 8.7 L (11.4-16.0) gm/dL Hct 26.7 L (34.0-46.0) % RDW 21.1 H (11.5-15.5) % Plt Count 77 L (150-450) k/uL APTT 20.5 L (22.0-30.0) sec Chloride (98-107) mmol/L Creatinine (0.52-1.04) mg/dL Glucose (74-99) mg/dL Calcium (8.4-10.2) mg/dL Procalcitonin 1.89 H (0.02-0.09) ng/mL 08/31/22 Range/Units 08:15 RBC (3.80-5.40) m/uL Hgb (11.4-16.0) gm/dL Hct (34.0-46.0) % RDW (11.5-15.5) % Plt Count (150-450) k/uL APTT (22.0-30.0) sec Chloride 111 H (98-107) mmol/L Creatinine 0.42 L (0.52-1.04) mg/dL Glucose 113 H (74-99) mg/dL Calcium 7.4 L (8.4-10.2) mg/dL Procalcitonin (0.02-0.09) ng/mL Microbiology - Last 24 Hours (Table) 08/28/22 08:28 Gram Stain - Final Sputum Sputum Culture - Final Bettina sp,not albicans/galbr 08/25/22 17:59 Blood Culture - Preliminary Blood No Growth after 120 hours
[2022-08-31] MEDS: VANCOMYCIN 1,000 MG in SODIUM CHLORIDE 0.9% 250 ML IVPB SCH (16:23)
[2022-09-01] MEDS: VANCOMYCIN 1,000 MG in SODIUM CHLORIDE 0.9% 250 ML IVPB SCH ×3 (01:09→21:23)
[2022-09-01] MEDS: methylPREDNISolone SOD SUCCI 125 MG/2 ML VIAL IV SCH (05:50)
[2022-09-01] MEDS: ALPRAZolam 0.25 MG TAB PO PRN ×3 (05:57→21:21)
[2022-09-01 06:38] LABS: Anisocytosis Moderate; HCT 23.7 % (34.0-46.0); HGB 7.5 gm/dL (11.4-16.0); Hypochromasia Slight; MCH 28.9 pg (25.0-35.0); MCHC 31.7 g/dL (31.0-37.0); MCV 90.9 fL (80.0-100.0); Macrocytosis Slight; Mean Platelet Volume 15.9; Poikilocytosis Slight; RDW 20.4 % (11.5-15.5); WBC 3.1 k/uL (3.8-10.6)
[2022-09-01 06:57] LABS: Platelet Count 68 k/uL (150-450)
[2022-09-01 07:09] LABS: African American GFR (CKD) >90 (>60 ml/min/1.73 sqM); Anion Gap 3 mmol/L; Blood Urea Nitrogen 12 mg/dL (7-17); Calcium 6.9 mg/dL (8.4-10.2); Carbon Dioxide 30 mmol/L (22-30); Chloride 109 mmol/L (98-107); Glucose 119 mg/dL (74-99); Non-African American GFR(CKD) >90 (>60 ml/min/1.73 sqM); Potassium 3.2 mmol/L (3.5-5.1); Sodium 142 mmol/L (137-145)
--- NOTE | 2022-09-01 07:20 | XR ---
EXAMINATION TYPE: XR chest 1V portable DATE OF EXAM: 09/01/2022 COMPARISON: 08/23/2012 INDICATION: Pneumonia TECHNIQUE: Single frontal view of the chest is obtained. FINDINGS: The heart size is normal. The pulmonary vasculature is normal. Patchy infiltrates are present at the bilateral lung bases and left upper lung field. IMPRESSION: 1. Stable bilateral lung infiltrates can be compatible with pneumonia. Continued follow-up is recomme nded.
[2022-09-01] MEDS: SODIUM CHLORIDE 0.9% 1,000 ML IV SCH ×2 (07:28→15:58)
[2022-09-01] MEDS: LACTATED RINGERS 1,000 ML IV SCH (07:28)
[2022-09-01] MEDS: FORMOTEROL FUMARATE 20 MCG/2 ML NEBU INHALATION SCH ×2 (07:47→19:26)
[2022-09-01] MEDS: IPRATROPIUM-ALBUTEROL 3 ML NEB INHALATION SCH ×4 (07:47→19:27)
[2022-09-01] MEDS: BUDESONIDE 1 MG/2 ML NEBU INHALATION SCH ×2 (07:47→19:27)
[2022-09-01] MEDS: LEVOFLOXACIN 750MG-D5W PMX 750 MG in DEXTROSE/WATER 1 150ML.BAG IVPB SCH (08:04)
[2022-09-01] MEDS: MEROPENEM 1 GM in SODIUM CHLORIDE 0.9% 100 ML IVPB SCH ×2 (08:24→15:58)
[2022-09-01] MEDS: METOPROLOL TARTRATE 25 MG TAB PO SCH ×2 (08:27→21:21)
[2022-09-01] MEDS: PANTOPRAZOLE 40 MG/10 ML VIAL IVP SCH ×2 (08:27→21:20)
--- NOTE | 2022-09-01 09:36 | P.PN ---
Subjective Progress Note Date: 09/01/22 On today's evaluation of 08/30/2022, the patient still being treated for a multifocal pneumonia with extensive left upper lobe consolidation. The patient currently is on oxygen at 3 L/m nasal cannula. This is most likely a bacterial pneumonia. Pro-calcitonin level at time of admission was 28.5 and has not been checked since. The white cell count is low at 3.6, with a hemoglobin of 7.3. Noted the patient has been having episode of GI bleed and during this current hospitalization, she has received a total of 3 units of packed RBC. The patient has been having melanotic stools. We have GI surgeries on the case and were still waiting for that interventions and scoping. Meanwhile, I repeat chest x- ray was done and it shows still multilobar and mitral focal pneumonia most extensive in the left upper lobe in addition to the left lower lobe and the right lower lobe. The patient remains on Zosyn. Hemodynamically the patient is off no pressors. She is stable. IV fluids are running at the rate of 0.9 at the rate of 50 mL an hour. She is known to have advanced COPD with an FEV1 of 37% of predicted. She is an ex-smoker. She has chronic anemia and mild dysplasia. She has also chronic systolic heart failure with an ejection fraction of based on echocardiogram that was done during this current admission. This echocardiogram was done on 08/26/2022 and there is also evidence of mode rate degree of aortic insufficiency and moderate left ventricular hypertrophy. Her cardiac rhythm is currently sinus. It was thought that the patient was having episodes of itchy fibrillation. She was given IV heparin which obviously facilitated her GI bleeding.. Note that the patient has undergone previous EGD and colonoscopy on 08/21/2020. The patient was found to have mild chronic gastritis, H. pylori was negative, the patient also had benign squamous glandular mucosal changes in mild chronic esophagitis and was negative for metaplasia. 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 In terms of her lung involvement, the patient has been seen Dr. Ayala on outpatient basis for shortness of breath and the patient is known to have chronic nodular, interstitial areas and areas of consolidation.. A CAT scan of the chest that was done on 05/12/2022 showed waxing and waning patchy airspace opacities and nodular changes. Note that along with history of mild dysplasia, inflammatory processes/infectious processes has been considered. Note that the bronchoscopy was done by Dr. Ayala on 08/18/2022 and the cultures came back negative. Furthermore, transbronchial biopsy of the lung was done and it showed benign mucosa and alveolar tissue. No necrotizing granulomatous process or fungal elements identified. There was possibly some endogenous lipid pneumonia. Condition is obviously progressed. I reviewed the follow-up CAT scan of the chest showed multifocal changes with extensive worsening in the left upper lobe On today's evaluation of the 2022, the patient is being seen for a follow- up. The patient has an acute hypoxic respiratory failure with evidence of multifocal pneumonia. Exact etiology is not clear. The patient's condition is progressed. Previous bronchoscopy has not yielded any microbial growth. Previous transbronchial biopsies were also nondiagnostic. As such, I brought in the patient's antibiotic coverage. For now, she is on a combination of Zosyn and Levaquin and vancomycin. Her breathing is still labored and the patient is somewhat tachypneic. Pulse ox in the order of 89% on 6 L of oxygen by nasal cannula. White suppositive 3.5 at the patient has chronic pancytopenia with a hemoglobin of 7.8 and a platelet count of 5. A repeat chest x-ray done today showed multilobar patchy pulmonary infiltrates involving the left upper lobe, left lower lobe and the right lower lobe. There is also some cavitation developing in the right lower lobe on today's chest x-ray. Findings essentially the same without any significant change since yesterday. Note that the patient's pro-calcitonin level that was obtained yesterday was at 1.89 and this is up significantly from 28 and as such antibiotic coverage will be kept the same. As mentioned, there is no microbial growth obtained on this patient. The sputum was positive for yeast. In terms of hemodynamics, the patient is hemodynamically stable. She is currently on IV fluids at 50 mL an hour of serafin l saline. Her echocardiogram has shown chronic systolic heart failure and mild impairment of the left ventricle ejection fraction which was in order of 45%. The patient also has moderate degree of aortic regurgitation. She has advanced COPD and she has an FEV1 of 37% of predicted and she is an ex-smoker. On a separate note, there is no episodes of ongoing GI bleed. Hemoglobin is stable at 7.8. The patient underwent a EGD yesterday that showed mild gastritis and hiatal hernia. There was no evidence of an acute bleeding. Neurologically, she is alert and awake. She is tolerating her diet. No nausea. No emesis. No other significant events overnight. On 09/01/2022, the patient is being seen for a follow-up. Her condition is stable and she feels good today. He feels less short of breath compared to yesterday. His breathing is not labored. The patient is currently on 6 L of oxygen by nasal cannula. Repeat chest x-ray shows stable point bilateral pulmonary infiltrates. Nevertheless, the patient has a declining level of pro- calcitonin which has dropped down to 0.63 from a maximum level of 28.5. The patient is also covered with broad-spectrum antibiotics. She is on a com bination of Merrem, Levaquin and vancomycin. Unfortunately, no cultures are available. Nevertheless, I believe that this is a bacterial infection with elevated pro-calcitonin level and the rapidly evolving bilateral pulmonary infiltrates. As mentioned, previous arthroscopy was nondiagnostic. In terms of her hematologic profile, the patient could be relatively immunosuppressed. She has a myelodysplasia and her white cell count today's of 3.1 with a platelet count of 68 and a hemoglobin of 7.5. Hematology is on the case. Electrolytes show a potassium level III.2 that needs to be replaced and the sodium level is at 142, BUN is at 12 with a creatinine of 0.4. Vancomycin level is at 19.3. She is hemodynamically stable. Cardiac rhythm is sinus. Urine operas adequate. She is tolerating her diet. No altered mentation. She underwent a colonoscopy yesterday that showed mild diverticulosis, no evidence of any acute bleeding. Her EGD that was done earlier also showed no signs of any acute upper GI bleeding. She had some minimal gastritis and hiatal hernia. Her hemoglobin has remained stable. An echocardiogram on 08/26/2022 showed mild impairment of LV function with moderate degree of aortic insufficiency, left ventricle ejection fraction was 45%. Objective - Vital Signs Vital signs: Vital Signs Temp 97.9 F 09/01/22 04:00 Pulse 95 09/01/22 08:11 Resp 18 09/01/22 07:00 BP 148/74 09/01/22 07:00 Pulse Ox 94 L 09/01/22 07:00 FiO2 40 08/26/22 16:00 Intake & Output 08/31/22 09/01/22 09/01/22 18:59 06:59 18:59 Intake Total 1400 950 50 Output Total 1000 1080 185 Balance 400 -130 -135 Weight 70 kg 72 kg Intake: IV 1300 700 50 0.9% @ 50 350 600 50 Levaquin 100 Meropenem 1 gm In Sodium 100 100 Chloride 0.9% 100 ml @ 33 .3 mls/hr IVPB Q8HR [facility] Rx#:[id number] Vancomycin 500 Intake, IV Titration 250 Amount Vancomycin 1,000 mg In 250 Sodium Chloride 0.9% 250 ml @ 125 mls/hr IVPB Q8H [facility] Rx#:[id number] Oral 100 Output: Urine 1000 1080 185 Other: Voiding Method Indwelling Catheter Indwelling Catheter # Bowel Movements 1 - Exam GENERAL EXAM: Alert, pale, weak 62-year-old female, on 6 L nasal cannula, comfortable in no apparent distress. HEAD: Normocephalic. EYES: Normal reaction of pupils, equal size. NOSE: Clear with pink turbinates. THROAT: No erythema or exudates. NECK: No masses, no JVD. CHEST: No chest wall deformity. LUNGS: Equal air entry with bilateral scattered rhonchi, end expiratory wheeze, diminished. CVS: S1 and S2 normal with no audible murmur, regular rhythm. ABDOMEN: No hepatosplenomegaly, normal bowel sounds, no guarding or rigidity. SPINE: No scoliosis or deformity SKIN: No rashes CENTRAL NERVOUS SYSTEM: No focal deficits, tone is normal in all 4 extremities. EXTREMITIES: There is no peripheral edema. No clubbing, no cyanosis. Peripheral pulses are intact. - Labs CBC & Chem 7: 09/01/22 06:04 09/01/22 06:04 Labs: Abnormal Lab Results - Last 24 Hours (Table) 08/31/22 09/01/22 09/01/22 Range/Units 08:15 06:04 06:04 WBC 3.1 L (3.8-10.6) k/uL RBC 3.02 L 2.60 L (3.80-5.40) m/uL Hgb 8.7 L 7.5 L (11.4-16.0) gm/dL Hct 26.7 L 23.7 L (34.0-46.0) % RDW 21.1 H 20.4 H (11.5-15.5) % Plt Count 77 L 68 L (150-450) k/uL Potassium (3.5-5.1) mmol/L Chloride (98-107) mmol/L Creatinine (0.52-1.04) mg/dL Glucose (74-99) mg/dL Calcium (8.4-10.2) mg/dL Procalcitonin 0.63 H (0.02-0.09) ng/mL 09/01/22 Range/Units 06:04 WBC (3.8-10.6) k/uL RBC (3.80-5.40) m/uL Hgb (11.4-16.0) gm/dL Hct (34.0-46.0) % RDW (11.5-15.5) % Plt Count (150-450) k/uL Potassium 3.2 L (3.5-5.1) mmol/L Chloride 109 H (98-107) mmol/L Creatinine 0.47 L (0.52-1.04) mg/dL Glucose 119 H (74-99) mg/dL Calcium 6.9 L (8.4-10.2) mg/dL Procalcitonin (0.02-0.09) ng/mL Microbiology - Last 24 Hours (Table) 08/25/22 17:59 Blood Culture - Final Blood No Growth after 144 hours 08/28/22 08:28 Legionella Culture - Preliminary Sputum 08/28/22 08:28 Gram Stain - Final Sputum Sputum Culture - Final Bettina sp,not albicans/galbr Assessment and Plan Plan: Left upper lobe pneumonia, sepsis. Chest x-ray on arrival showed a new left upper lobe masslike pneumonic consolidation with the chronic parenchymal changes that were seen on previous examinations in bilateral lower lobes. A follow up Chest CTA also redemonstrated the multifocal airspace disease with background moderate centrilobular emphysema. Chest x-ray 08/28/2022 shows worsening bilateral pneumonia. The patient underwent a bronchoscopy on 08/18/[address] Ayala, and the findings of essentially nonspecific. Obviously, this is a completely nondiagnostic bronchoscopy with negative cultures and benign tissue on the transbronchial biopsies in the right lower lobe. The patient's pro- calcitonin level has been dropping and the patient is currently on broad- spectrum antibiotics. Chest x-ray still showing multifocal pneumonia with some early cavitation of the right lower lobe. The patient is currently on a comb ination of meropenem and Levaquin and vancomycin and the patient is also on steroids. Note that the pro calcitonin level is also showing a further drop and most recent level is down to 0.63. Chest x-ray findings are stable. Clinically more stable compared to yesterday that on 6 L of O2 nasal cannula . The exact microorganism is not known. Doubt any fungal pneumonia. Doubt viral pneumonia. Pro-calcitonin level is elevated and is dropping and I favor bacterial infection and for that reason, the patient was covered with broad-spectrum antibiotics. , Acute COPD exacerbation secondary to above. Patient does have baseline severe emphysema with an FEV1 that is 37% of predicted. Acute on chronic hypoxic respiratory failure normally maintained on 2 L home O2. She is currently on BiPAP settings 12/6 with an FiO2 of 50%, currently off BiPAP and the patient is currently on 6 L of O2 nasal cannula. Breathing is less labored compared to yesterday and the patient seems to much more stable on today's evaluation. Acute GI bleed and has received 3 units of packed red blood cells this admission thus far. Tagged RBC scan revealed no evidence of active GI bleeding, previous EGD and colonoscopy showed some mild gastritis, esophagitis, colonic and rectal polyps in the form of tubular adenoma. the colonoscopy showed some mild diverticulosis. No active bleeding at this point in time and the patient is on no anticoagulants. A repeat EGD was done yesterday and the findings were essentially negative for any acute bleeding. lobe is stable for now. New-onset atrial fibrillation with rapid ventricular rate. Currently in normal sinus rhythm Mild systolic heart failure with ejection fraction 45% in addition to moderate aortic insufficiency and concentric LVH Myelodysplastic syndrome, the patient has pancytopenia Chronic iron deficiency anemia with history of iron transfusions. There is a left adrenal nodule that was found on chest CTA which could represent benign lipid rich adrenal adenoma, however Bettina in the sputum, likely an upper airway colonization especially the patient has been on on multiple antibiotics and steroids. Ex-smoker Plan: Continue current antibiotic coverage included a combination of merrem , Levaquin and vancomycin Add Diflucan 100 mg IV every 24 hours order next 7 days Change Solu-Medrol to 40 mg every 12 hours Chest x-rays being monitored Titrate oxygen flow to maintain a saturation above 90% Another sputum sample was collected, there is also still pending for now Suspect a superimposed bacterial infections pressure was elevated pro-calcitonin level, and the pro calcitonin level is essentially improving No evidence of any GI bleed and EGD and colonoscopy was completed Continue to monitor hemoglobin Continue COPD treatment Titrate the FiO2 as tolerated Follow-up chest x-ray in a.m. Prognosis is guarded We'll continue to follow May need another hematology evaluation,if her condition remains unchanged and or doesn't show complete clearing of the bilateral pulmonary infiltrates. All stable compared to yesterday. We'll continue to follow.
[2022-09-01] MEDS ORDERED: Potassium Replacement Protocol 1 EACH MISC MISCELLANE PRN (10:19)
--- NOTE | 2022-09-01 11:27 | P.PN ---
Subjective Progress Note Date: 09/01/22 CHIEF COMPLAINT: GI bleed HISTORY OF PRESENT ILLNESS: Patient remains in the ICU. She is status post col onoscopy which revealed mild diverticulosis. There was a small 3-4 mm polyp in the transverse colon. Small hemorrhoids with no evidence of bleeding. No blood throughout the colon. EGD had shown mild gastritis and hiatal hernia. Afebrile. Hemoglobin 8.7 down to 7.5 k 3.2 Patient has had no bowel movements. No evidence of bleeding. Currently on a regular diet. She is scheduled for small bowel follow-through today she does report tenderness left lower quadrant. PHYSICAL EXAM: VITAL SIGNS: Reviewed. GENERAL: Well-developed in no acute distress. HEENT: No sclera icterus. Extraocular movements grossly intact. Moist buccal mucosa. Head is atraumatic, normocephalic. ABDOMEN: Soft. Nondistended. Mildly tender with palpation left lower quadrant NEUROLOGIC: Alert and oriented. Cranial nerves II through XII grossly intact. ASSESSMENT: 1. Acute GI bleed with maroon stools 2. Acute on chronic blood loss anemia 3. Prior history of diverticular bleed 4. History of myelodysplastic syndrome 5. Pneumonia PLAN: -Scheduled for small bowel follow-through today to check for possible small bowel source of bleeding -Recommend repeat colonoscopy in 2 years -Potassium is being replaced -Continue supportive care -Continue monitoring hemoglobin Physician Master Motorcycle Technician note has been reviewed by physician. Signing provider agrees with the documented findings, assessment, and plan of care. Objective - Vital Signs Vital signs: Vital Signs Temp 97.1 F L 09/01/22 08:00 Pulse 103 H 09/01/22 10:00 Resp 12 09/01/22 09:00 BP 148/71 09/01/22 09:00 Pulse Ox 95 09/01/22 09:00 FiO2 40 08/26/22 16:00 Intake & Output 08/31/22 09/01/22 09/01/22 18:59 06:59 18:59 Intake Total 1400 950 400 Output Total 1000 1080 520 Balance 400 -130 -120 Weight 70 kg 72 kg Intake: IV 1300 700 400 0.9% @ 50 350 600 200 Levaquin 100 100 Meropenem 1 gm In Sodium 100 100 100 Chloride 0.9% 100 ml @ 33 .3 mls/hr IVPB Q8HR [facility] Rx#:[id number] Vancomycin 500 Intake, IV Titration 250 Amount Vancomycin 1,000 mg In 250 Sodium Chloride 0.9% 250 ml @ 125 mls/hr IVPB Q8H [facility] Rx#:[id number] Oral 100 Output: Urine 1000 1080 520 Other: Voiding Method Indwelling Catheter Indwelling Catheter Indwelling Catheter # Bowel Movements 1 - Labs CBC & Chem 7: 09/01/22 06:04 09/01/22 06:04 Labs: Abnormal Lab Results - Last 24 Hours (Table) 08/31/22 09/01/22 09/01/22 Range/Units 08:15 06:04 06:04 WBC 3.1 L (3.8-10.6) k/uL RBC 2.60 L (3.80-5.40) m/uL Hgb 7.5 L (11.4-16.0) gm/dL Hct 23.7 L (34.0-46.0) % RDW 20.4 H (11.5-15.5) % Plt Count 77 L 68 L (150-450) k/uL Potassium (3.5-5.1) mmol/L Chloride (98-107) mmol/L Creatinine (0.52-1.04) mg/dL Glucose (74-99) mg/dL Calcium (8.4-10.2) mg/dL Procalcitonin 0.63 H (0.02-0.09) ng/mL 09/01/22 Range/Units 06:04 WBC (3.8-10.6) k/uL RBC (3.80-5.40) m/uL Hgb (11.4-16.0) gm/dL Hct (34.0-46.0) % RDW (11.5-15.5) % Plt Count (150-450) k/uL Potassium 3.2 L (3.5-5.1) mmol/L Chloride 109 H (98-107) mmol/L Creatinine 0.47 L (0.52-1.04) mg/dL Glucose 119 H (74-99) mg/dL Calcium 6.9 L (8.4-10.2) mg/dL Procalcitonin (0.02-0.09) ng/mL Microbiology - Last 24 Hours (Table) 08/25/22 17:59 Blood Culture - Final Blood No Growth after 144 hours 08/28/22 08:28 Legionella Culture - Preliminary Sputum 08/28/22 08:28 Gram Stain - Final Sputum Sputum Culture - Final Bettina sp,not albicans/galbr
--- NOTE | 2022-09-01 12:37 | P.PN ---
Subjective Progress Note Date: 09/01/22 Principal diagnosis: anemia Upon visit today patient is resting comfortably in bed. Patient is reporting feeling improved today. No reported episodes of bleeding. Reports overall improvement in breathing. Pt is scheduled for small bowel series today. EGD/colonoscopy negative for acute GI bleed. No other reported complaints Objective - Vital Signs Vital signs: Vital Signs Temp 97.1 F L 09/01/22 08:00 Pulse 103 H 09/01/22 10:00 Resp 12 09/01/22 09:00 BP 148/71 09/01/22 09:00 Pulse Ox 95 09/01/22 09:00 FiO2 40 08/26/22 16:00 Intake & Output 08/31/22 09/01/22 09/01/22 18:59 06:59 18:59 Intake Total 1400 950 400 Output Total 1000 1080 520 Balance 400 -130 -120 Weight 70 kg 72 kg 72 kg Intake: IV 1300 700 400 0.9% @ 50 350 600 200 Levaquin 100 100 Meropenem 1 gm In Sodium 100 100 100 Chloride 0.9% 100 ml @ 33 .3 mls/hr IVPB Q8HR [facility] Rx#:[id number] Vancomycin 500 Intake, IV Titration 250 Amount Vancomycin 1,000 mg In 250 Sodium Chloride 0.9% 250 ml @ 125 mls/hr IVPB Q8H [facility] Rx#:[id number] Oral 100 Output: Urine 1000 1080 520 Other: Voiding Method Indwelling Catheter Indwelling Catheter Indwelling Catheter # Bowel Movements 1 - Constitutional General appearance: Present: average body habitus, no acute distress - EENT Eyes: Present: anicteric sclerae, EOMI ENT: Present: hearing grossly normal - Respiratory Respiratory: bilateral: CTA - Cardiovascular Rhythm: regular Heart sounds: normal: S1, S2 Abnormal Heart Sounds: Absent: systolic murmur, diastolic murmur, rub, S3 Gallop, S4 Gallop, click, other - Integumentary Integumentary: Present: pale - Neurologic Neurologic Comment(s): grossly intact - Musculoskeletal Musculoskeletal: Present: strength equal bilaterally - Psychiatric Psychiatric: Present: A&O x's 3, appropriate affect, intact judgment & insight - Labs CBC & Chem 7: 09/01/22 06:04 09/01/22 06:04 Labs: Abnormal Lab Results - Last 24 Hours (Table) 08/31/22 09/01/2223 Range/Units 08:15 06:04 06:04 WBC 3.1 L (3.8-10.6) k/uL RBC 2.60 L (3.80-5.40) m/uL Hgb 7.5 L (11.4-16.0) gm/dL Hct 23.7 L (34.0-46.0) % RDW 20.4 H (11.5-15.5) % Plt Count 77 L 68 L (150-450) k/uL Potassium (3.5-5.1) mmol/L Chloride (98-107) mmol/L Creatinine (0.52-1.04) mg/dL Glucose (74-99) mg/dL Calcium (8.4-10.2) mg/dL Procalcitonin 0.63 H (0.02-0.09) ng/mL 09/01/22 Range/Units 06:04 WBC (3.8-10.6) k/uL RBC (3.80-5.40) m/uL Hgb (11.4-16.0) gm/dL Hct (34.0-46.0) % RDW (11.5-15.5) % Plt Count (150-450) k/uL Potassium 3.2 L (3.5-5.1) mmol/L Chloride 109 H (98-107) mmol/L Creatinine 0.47 L (0.52-1.04) mg/dL Glucose 119 H (74-99) mg/dL Calcium 6.9 L (8.4-10.2) mg/dL Procalcitonin (0.02-0.09) ng/mL Microbiology - Last 24 Hours (Table) 08/25/22 17:59 Blood Culture - Final Blood No Growth after 144 hours 08/28/22 08:28 Legionella Culture - Preliminary Sputum 08/28/22 08:28 Gram Stain - Final Sputum Sputum Culture - Final Bettina sp,not albicans/galbr Assessment and Plan (1) Anemia Current Visit: Yes Status: Acute Priority: High Code(s): D64.9 - ANEMIA, UNSPECIFIED SNOMED Code(s): 951207112 (2) MDS (myelodysplastic syndrome), low grade Current Visit: Yes Status: Chronic Priority: High Code(s): D46.20 - REFRACTORY ANEMIA WITH EXCESS OF BLASTS, UNSPECIFIED SNOMED Code(s): 179359740 Plan: Anemia: -Hemoglobin 7.5 today. She has received 3 units of PRBCs, last unit given on 08/27. Platelets 68,000 -Iron studies consistent with GERA. However, at this time due to worries of acute infection will hold iron supplementation -No episodes of bleeding today. GI on consult, EGD showed gastritis, no acute bleeding noted. Colonoscopy revealed mild diverticulosis, small hemorrhoids, no acute bleeding noted. Small bowel series scheduled for today. Nuclear medicine tagged RBC scan negative for acute bleed -Anemia likely multifactorial r/t infectious process and acute GI bleed -Will continue to monitor CBC -DIC and HIT workup negative -Please transfused for hgb less than 7 or if symptomatic MDS: -Progressive decrease in blood counts since May, anemia showing the most change. -It was previously discussed with pt that another bone marrow would be reasonable if no other cause for decreasing counts identified. This was discussed with patient. She is agreeable to the same. F/u planned in [address] Pathak to further discuss potential BM biopsy Dr attests: I have performed H&P and developed impression and plan of care for patient, discussed with dictator. I agree with dictated note, documented as a scribe
[2022-09-01] MEDS: FLUCONAZOLE IN NACL,ISO-OSM 100 MG in SALINE 1 50ML.BAG IVPB SCH (13:31)
[2022-09-01] MEDS: POTASSIUM BICARBONATE/CIT AC 20 MEQ TABLET.EFF NG-TUBE SCH ×2 (13:40→14:51)
[2022-09-01] MEDS: HYDROmorphone 0.5 MG/0.5 ML SYRINGE IVP PRN ×2 (13:45→20:21)
[2022-09-01] MEDS: POTASSIUM CHLORIDE 10 MEQ in WATER FOR INJECTION 1 100ML.BAG IVPB SCH ×2 (15:12→15:13)
--- NOTE | 2022-09-01 15:15 | P.PN ---
Subjective Progress Note Date: 09/01/22 62 year old female with MDS, GI bleed, COPD on 2 L oxygen at home presenting with dyspnea, palpitations, productive cough with occasional hemoptysis, chest pain. Patient was recently hospitalized for pneumonia as well as acute anemia, had a bronchoscopy at that time, patient was eventually discharged on oral antibiotics and prednisone taper. Since presenting to the ED this time, patient has been hypoxic, tachypneic, tachycardic requiring BiPAP for increased work of breathing. Patient was evaluated by pulmonology. Patient was started on IV antibiotics, steroids and bronchodilators for pneumonia as well as COPD exacerbation. CTA chest showed no PE, multifocal airspace disease with moderate emphysema, worsening left upper lobe, also incidental left adrenal nodule. On 08/26, patient had an episode of hypertension and unresponsiveness. Patient was then transferred to the medical ICU. Echocardiogram report reviewed: Mildly impaired LV function with EF 45%, moderate AI. She is now having bloody bowel movements. She is status post 3 units of PRBCs. Surgery was consulted. Tagged RBC scan did not show any active GI bleeding. EGD was done 08/30 which was negative for bleed. C-scope was done on 08/31 which showed mild diverticulosis. Patient was seen and examined. No acute events overnight. Patient reports improvement in her breathing. Plan is for small bowel GI series today. She is on 6L NC. Her baseline is 2L NC at home. General: Tired appearing, no distress, appears older than stated age Derm: warm, dry Head: atraumatic, normocephalic, symmetric Eyes: EOMI, no lid lag, anicteric sclera Mouth: no lip lesion, mucus membranes moist Cardiovascular: S1S2 reg, no murmur Lungs: CTA bilateral, no rhonchi, no rales , no accessory muscle use, nasal cannula 6 L Abdominal: soft, nontender to palpation, no guarding, no appreciable organomegaly Ext: no gross muscle atrophy, no edema, no contractures Neuro: no focal neuro deficits Psych: Alert and oriented x 3 #Acute GI bleed, blood loss anemia #Acute on chronic hypoxic respiratory failure #Septic secondary to left upper lobe pneumonia #Acute COPD exacerbation #Acute on chronic macrocytic anemia #History of MDS #Left adrenal nodule, incidental finding Resolved: Sinus tachycardia Based on my assessment of this patient, this patient meets a high complexity level of care. I have reviewed the following senior solutions workflow consultant notes: Pulmonology note 09/01, change Solumedrol to 40 mg IV BID, add diflucan 100 mg IV daily, continue vancomycin/levaquin/meropenem I have reviewed the results of the following tests: CBC shows hemoglobin is 7.5 and platelet count of 68. This is likely related to MDS. Hemoglobin worsened due to GI bleed requiring 3 unit PRBC. Hemoglobin today improved from 8.7 yesterday. BMP shows potassium of 3.2, chloride 109, glucose 119, calcium is 6.9. Pro-calcitonin 0.63. I have ordered the following tests: CBC and BMP ordered tomorrow morning. I have discussed the care of this patient with the following independent historian: None. I have independently interpreted the following test below: Chest x-ray shows multifocal infiltrates essentially unchanged from yesterday's chest x-ray. I have discussed the management of this patient with the following physician: None. This patient has a high risk of morbidity due to the following reasons: Patient has a history of COPD on 2L home O2 with severe exacerbation or progression of disease which poses a threat to life or bodily function. She is currently being treated for pneumonia with Vancomycin 1250 mg IV every 8 hours which is nephrotoxic and requires daily monitoring of her renal function. Continued on Levaquin 750 mg IV daily and Meropenem 1g IV every 8 hours. Added Diflucan 100 mg IV daily. Her hemoglobin has remained stable over the past 2 days. Her hemoglobin is 7.5 today and there are plans for small bowel x-ray. Continue Protonix 40 mg IV twice a day. Objective - Vital Signs Vital signs: Vital Signs Temp 97.1 F L 09/01/22 08:00 Pulse 103 H 09/01/22 14:00 Resp 22 09/01/22 14:00 BP 143/73 09/01/22 14:00 Pulse Ox 93 L 09/01/22 14:00 FiO2 40 08/26/22 16:00 Intake & Output 08/31/22 09/01/22 09/01/22 18:59 06:59 18:59 Intake Total 1400 950 650 Output Total 1000 1080 920 Balance 400 -130 -270 Weight 70 kg 72 kg 72 kg Intake: IV 1300 700 650 0.9% @ 50 350 600 200 Levaquin 100 100 Meropenem 1 gm In Sodium 100 100 100 Chloride 0.9% 100 ml @ 33 .3 mls/hr IVPB Q8HR [facility] Rx#:[id number] Vancomycin 500 250 Intake, IV Titration 250 Amount Vancomycin 1,000 mg In 250 Sodium Chloride 0.9% 250 ml @ 125 mls/hr IVPB Q8H [facility] Rx#:[id number] Oral 100 Output: Urine 1000 1080 920 Other: Voiding Method Indwelling Catheter Indwelling Catheter Indwelling Catheter # Bowel Movements 1 - Labs CBC & Chem 7: 09/01/22 06:04 09/01/22 06:04 Labs: Abnormal Lab Results - Last 24 Hours (Table) 09/01/22 09/01/22 09/01/22 Range/Units 06:04 06:04 06:04 WBC 3.1 L (3.8-10.6) k/uL RBC 2.60 L (3.80-5.40) m/uL Hgb 7.5 L (11.4-16.0) gm/dL Hct 23.7 L (34.0-46.0) % RDW 20.4 H (11.5-15.5) % Plt Count 68 L (150-450) k/uL Potassium 3.2 L (3.5-5.1) mmol/L Chloride 109 H (98-107) mmol/L Creatinine 0.47 L (0.52-1.04) mg/dL Glucose 119 H (74-99) mg/dL Calcium 6.9 L (8.4-10.2) mg/dL Procalcitonin 0.63 H (0.02-0.09) ng/mL Microbiology - Last 24 Hours (Table) 08/25/22 17:59 Blood Culture - Final Blood No Growth after 144 hours 08/28/22 08:28 Legionella Culture - Preliminary Sputum 08/28/22 08:28 Gram Stain - Final Sputum Sputum Culture - Final Bettina sp,not albicans/galbr
[2022-09-01] MEDS ORDERED: ONDANSETRON 4 MG TAB PO STA (20:42)
[2022-09-01] MEDS: methylPREDNISolone SOD SUCCI 40 MG/ML 1 ML VIAL IV SCH (21:20)
[2022-09-02] MEDS: MEROPENEM 1 GM in SODIUM CHLORIDE 0.9% 100 ML IVPB SCH ×3 (00:37→16:54)
[2022-09-02] MEDS: HYDROmorphone 0.5 MG/0.5 ML SYRINGE IVP PRN ×3 (00:40→16:54)
[2022-09-02] MEDS ORDERED: VANCOMYCIN TROUGH DUE 1 EACH MISC MISCELLANE ONE (04:00)
[2022-09-02 05:01] LABS: Anisocytosis Moderate; HCT 22.9 % (34.0-46.0); HGB 7.3 gm/dL (11.4-16.0); Hypochromasia Slight; MCH 28.4 pg (25.0-35.0); MCHC 31.6 g/dL (31.0-37.0); MCV 89.9 fL (80.0-100.0); Macrocytosis Slight; Mean Platelet Volume 17.7; Poikilocytosis Moderate; RBC 2.55 m/uL (3.80-5.40); RDW 21.1 % (11.5-15.5); WBC 3.5 k/uL (3.8-10.6)
[2022-09-02 05:02] LABS: Platelet Count 61 k/uL (150-450)
[2022-09-02] MEDS: VANCOMYCIN 1,000 MG in SODIUM CHLORIDE 0.9% 250 ML IVPB SCH ×2 (05:13→18:12)
[2022-09-02] MEDS: ALPRAZolam 0.25 MG TAB PO PRN ×3 (05:18→20:38)
[2022-09-02 05:48] LABS: Potassium 3.8 mmol/L (3.5-5.1)
[2022-09-02 05:49] LABS: African American GFR (CKD) >90 (>60 ml/min/1.73 sqM); Anion Gap -1 mmol/L; Blood Urea Nitrogen 17 mg/dL (7-17); Calcium 6.8 mg/dL (8.4-10.2); Carbon Dioxide 30 mmol/L (22-30); Chloride 109 mmol/L (98-107); Glucose 132 mg/dL (74-99); Non-African American GFR(CKD) >90 (>60 ml/min/1.73 sqM); Sodium 138 mmol/L (137-145)
--- NOTE | 2022-09-02 07:13 | XR ---
EXAMINATION TYPE: XR chest 1V portable DATE OF EXAM: 09/02/2022 6:10 AM COMPARISON: Chest radiographs from 09/01/2022 TECHNIQUE: XR chest 1V portable Portable AP radiograph of the chest. CLINICAL INDICATION:Female, 62 years old with history of PNA; FINDINGS: Lungs/Pleura: Similar multifocal airspace opacities. Flattening of the diaphragm with increased lucen cy in the lung apices. No evidence of pneumothorax or pleural effusion. Pulmonary vascularity: Unremarkable. Heart/mediastinum: Cardiomediastinal silhouette is unremarkable. Musculoskeletal: No acute osseous pathology. IMPRESSION: Redemonstration of scattered airspace opacities throughout the lungs not significantly changed from p rior. This is superimposed on COPD changes.
[2022-09-02] MEDS: BUDESONIDE 1 MG/2 ML NEBU INHALATION SCH ×2 (07:49→19:33)
[2022-09-02] MEDS: IPRATROPIUM-ALBUTEROL 3 ML NEB INHALATION SCH ×4 (07:49→19:33)
[2022-09-02] MEDS: FORMOTEROL FUMARATE 20 MCG/2 ML NEBU INHALATION SCH ×2 (07:49→19:33)
[2022-09-02] MEDS: LACTATED RINGERS 1,000 ML IV SCH (07:56)
[2022-09-02] MEDS ORDERED: POTASSIUM CHLORIDE ER 20 MEQ TAB.ER PO SCH (08:00)
--- NOTE | 2022-09-02 08:10 | FL ---
EXAMINATION TYPE: FL small bowel follow through DATE OF EXAM: 09/02/2022 7:51 AM COMPARISON: PET/CT 01/01/2022, CT 12/03/2021 INDICATION: Patient age:Female; 62 years old; Reason for study: Recurrent GI bleed; TECHNIQUE: The procedure was explained and patient history elicited. All patient questions were ans wered prior to start of procedure. A webfed offset press operator radiograph of the abdomen was also reviewed. The patient was asked to ingest liquid Barium and incremental frontal abdominal radiographs were then taken until contrast was visualized in the cecum. Fluoroscopic time:0 min Fluoroscopic images:0 Radiographs taken: 11 FINDINGS: The webfed offset press operator abdominal radiograph demonstrates a normal bowel gas pattern without dilated loops of small or large bowel. There is no evidence of organomegaly or pneumoperitoneum. No abnormal calcifications . The visualized osseous structures are intact. Contrast is seen extending from the duodenojejunal junction into the cecum after 21.5 hours, which is delayed. The small bowel follows normal distribution and contour without any evidence of extralumin al or intraluminal irregularity. There is no displacement of bowel loops or extraluminal extravasati on of contrast material. Small bowel mucosal folds are felt to be within normal limits. Large bowel is without evidence of mass. IMPRESSION: Delayed transit of contrast through the bowel no evidence of mass or finding to correlate with recurr ent GI bleed.
[2022-09-02] MEDS: methylPREDNISolone SOD SUCCI 40 MG/ML 1 ML VIAL IV SCH ×2 (08:47→20:38)
[2022-09-02] MEDS: LEVOFLOXACIN 750MG-D5W PMX 750 MG in DEXTROSE/WATER 1 150ML.BAG IVPB SCH (08:47)
[2022-09-02] MEDS: FLUCONAZOLE IN NACL,ISO-OSM 100 MG in SALINE 1 50ML.BAG IVPB SCH (08:47)
[2022-09-02] MEDS: METOPROLOL TARTRATE 25 MG TAB PO SCH ×2 (08:47→20:39)
[2022-09-02] MEDS: PANTOPRAZOLE 40 MG/10 ML VIAL IVP SCH ×2 (08:47→20:38)
--- NOTE | 2022-09-02 09:14 | P.PN ---
Subjective Progress Note Date: 09/02/22 On today's evaluation of 08/30/2022, the patient still being treated for a multifocal pneumonia with extensive left upper lobe consolidation. The patient currently is on oxygen at 3 L/m nasal cannula. This is most likely a bacterial pneumonia. Pro-calcitonin level at time of admission was 28.5 and has not been checked since. The white cell count is low at 3.6, with a hemoglobin of 7.3. Noted the patient has been having episode of GI bleed and during this current hospitalization, she has received a total of 3 units of packed RBC. The patient has been having melanotic stools. We have GI surgeries on the case and were still waiting for that interventions and scoping. Meanwhile, I repeat chest x- ray was done and it shows still multilobar and mitral focal pneumonia most extensive in the left upper lobe in addition to the left lower lobe and the right lower lobe. The patient remains on Zosyn. Hemodynamically the patient is off no pressors. She is stable. IV fluids are running at the rate of 0.9 at the rate of 50 mL an hour. She is known to have advanced COPD with an FEV1 of 37% of predicted. She is an ex-smoker. She has chronic anemia and mild dysplasia. She has also chronic systolic heart failure with an ejection fraction of based on echocardiogram that was done during this current admission. This echocardiogram was done on 08/26/2022 and there is also evidence of mode rate degree of aortic insufficiency and moderate left ventricular hypertrophy. Her cardiac rhythm is currently sinus. It was thought that the patient was having episodes of itchy fibrillation. She was given IV heparin which obviously facilitated her GI bleeding.. Note that the patient has undergone previous EGD and colonoscopy on 08/21/2020. The patient was found to have mild chronic gastritis, H. pylori was negative, the patient also had benign squamous glandular mucosal changes in mild chronic esophagitis and was negative for metaplasia. 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 In terms of her lung involvement, the patient has been seen Dr. Ayala on outpatient basis for shortness of breath and the patient is known to have chronic nodular, interstitial areas and areas of consolidation.. A CAT scan of the chest that was done on 05/12/2022 showed waxing and waning patchy airspace opacities and nodular changes. Note that along with history of mild dysplasia, inflammatory processes/infectious processes has been considered. Note that the bronchoscopy was done by Dr. Ayala on 08/18/2022 and the cultures came back negative. Furthermore, transbronchial biopsy of the lung was done and it showed benign mucosa and alveolar tissue. No necrotizing granulomatous process or fungal elements identified. There was possibly some endogenous lipid pneumonia. Condition is obviously progressed. I reviewed the follow-up CAT scan of the chest showed multifocal changes with extensive worsening in the left upper lobe On today's evaluation of the 2022, the patient is being seen for a follow- up. The patient has an acute hypoxic respiratory failure with evidence of multifocal pneumonia. Exact etiology is not clear. The patient's condition is progressed. Previous bronchoscopy has not yielded any microbial growth. Previous transbronchial biopsies were also nondiagnostic. As such, I brought in the patient's antibiotic coverage. For now, she is on a combination of Zosyn and Levaquin and vancomycin. Her breathing is still labored and the patient is somewhat tachypneic. Pulse ox in the order of 89% on 6 L of oxygen by nasal cannula. White suppositive 3.5 at the patient has chronic pancytopenia with a hemoglobin of 7.8 and a platelet count of 5. A repeat chest x-ray done today showed multilobar patchy pulmonary infiltrates involving the left upper lobe, left lower lobe and the right lower lobe. There is also some cavitation developing in the right lower lobe on today's chest x-ray. Findings essentially the same without any significant change since yesterday. Note that the patient's pro-calcitonin level that was obtained yesterday was at 1.89 and this is up significantly from 28 and as such antibiotic coverage will be kept the same. As mentioned, there is no microbial growth obtained on this patient. The sputum was positive for yeast. In terms of hemodynamics, the patient is hemodynamically stable. She is currently on IV fluids at 50 mL an hour of serafin l saline. Her echocardiogram has shown chronic systolic heart failure and mild impairment of the left ventricle ejection fraction which was in order of 45%. The patient also has moderate degree of aortic regurgitation. She has advanced COPD and she has an FEV1 of 37% of predicted and she is an ex-smoker. On a separate note, there is no episodes of ongoing GI bleed. Hemoglobin is stable at 7.8. The patient underwent a EGD yesterday that showed mild gastritis and hiatal hernia. There was no evidence of an acute bleeding. Neurologically, she is alert and awake. She is tolerating her diet. No nausea. No emesis. No other significant events overnight. On 09/01/2022, the patient is being seen for a follow-up. Her condition is stable and she feels good today. He feels less short of breath compared to yesterday. His breathing is not labored. The patient is currently on 6 L of oxygen by nasal cannula. Repeat chest x-ray shows stable point bilateral pulmonary infiltrates. Nevertheless, the patient has a declining level of pro- calcitonin which has dropped down to 0.63 from a maximum level of 28.5. The patient is also covered with broad-spectrum antibiotics. She is on a com bination of Merrem, Levaquin and vancomycin. Unfortunately, no cultures are available. Nevertheless, I believe that this is a bacterial infection with elevated pro-calcitonin level and the rapidly evolving bilateral pulmonary infiltrates. As mentioned, previous arthroscopy was nondiagnostic. In terms of her hematologic profile, the patient could be relatively immunosuppressed. She has a myelodysplasia and her white cell count today's of 3.1 with a platelet count of 68 and a hemoglobin of 7.5. Hematology is on the case. Electrolytes show a potassium level III.2 that needs to be replaced and the sodium level is at 142, BUN is at 12 with a creatinine of 0.4. Vancomycin level is at 19.3. She is hemodynamically stable. Cardiac rhythm is sinus. Urine operas adequate. She is tolerating her diet. No altered mentation. She underwent a colonoscopy yesterday that showed mild diverticulosis, no evidence of any acute bleeding. Her EGD that was done earlier also showed no signs of any acute upper GI bleeding. She had some minimal gastritis and hiatal hernia. Her hemoglobin has remained stable. An echocardiogram on 08/26/2022 showed mild impairment of LV function with moderate degree of aortic insufficiency, left ventricle ejection fraction was 45%. 09/02/2022, the patient feels fatigued and tired. She is currently on 5 L of oxygen by nasal cannula and she is on a broad-spectrum antibiotic coverage including meropenem, Levaquin and vancomycin. Diflucan was also added as the patient had some oropharyngeal candidiasis. Repeat chest x-ray from today shows multifocal pulmonary infiltrates and no significant change compared to yesterday. However, there may be some limited improvement since her admission to the intensive care unit. The patient will be kept on broad-spectrum antibiotics for now. Small bowel follow-through was done and there is no evidence of any abnormalities or bleed at this point in time. Hemoglobin is at 7.3, slightly lower compared to yesterday. The patient did not have any bright red blood per rectum or melanotic stools. Platelet count is at 61, the whites echoes at 3.5, BUN is at 70 with a creatinine of 0.4. Vancomycin trough level is 23.5. She is afebrile. No other new complaints otherwise for now. She is receiving lactated Ringer at the rate of 20 mL an hour. She remains on her routine bronchodilators. She is also on IV Solu-Medrol and the dose has been modified to 40 mg every 12 hours. Objective - Vital Signs Vital signs: Vital Signs Temp 97.4 F L 09/02/22 04:00 Pulse 114 H 09/02/22 08:08 Resp 12 09/02/22 07:00 BP 157/125 09/02/22 07:00 Pulse Ox 96 09/02/22 07:00 FiO2 40 08/26/22 16:00 Intake & Output 09/01/22 09/02/22 09/02/22 18:59 06:59 18:59 Intake Total 850 1000 Output Total 1120 455 Balance -270 545 Weight 72 kg 73.2 kg Intake: IV 850 1000 0.9% @ 50 400 650 Levaquin 100 Meropenem 1 gm In Sodium 100 100 Chloride 0.9% 100 ml @ 33 .3 mls/hr IVPB Q8HR [facility] Rx#:[id number] Vancomycin 250 250 Output: Urine 1120 455 Other: Voiding Method Indwelling Catheter Indwelling Catheter # Bowel Movements 1 - Exam GENERAL EXAM: Alert, pale, weak 62-year-old female, on 5 L nasal cannula, comfortable in no apparent distress. HEAD: Normocephalic. EYES: Normal reaction of pupils, equal size. NOSE: Clear with pink turbinates. THROAT: No erythema or exudates. NECK: No masses, no JVD. CHEST: No chest wall deformity. LUNGS: Equal air entry with bilateral scattered rhonchi, end expiratory wheeze, diminished. CVS: S1 and S2 normal with no audible murmur, regular rhythm. ABDOMEN: No hepatosplenomegaly, normal bowel sounds, no guarding or rigidity. SPINE: No scoliosis or deformity SKIN: No rashes CENTRAL NERVOUS SYSTEM: No focal deficits, tone is normal in all 4 extremities. EXTREMITIES: There is no peripheral edema. No clubbing, no cyanosis. Peripheral pulses are intact. - Labs CBC & Chem 7: 09/02/22 04:43 09/02/22 04:43 Labs: Abnormal Lab Results - Last 24 Hours (Table) 09/01/22 09/02/22 09/02/22 Range/Units 06:04 04:43 04:43 WBC 3.5 L (3.8-10.6) k/uL RBC 2.55 L (3.80-5.40) m/uL Hgb 7.3 L (11.4-16.0) gm/dL Hct 22.9 L (34.0-46.0) % RDW 21.1 H (11.5-15.5) % Plt Count 61 L (150-450) k/uL Chloride 109 H (98-107) mmol/L Creatinine 0.41 L (0.52-1.04) mg/dL Glucose 132 H (74-99) mg/dL Calcium 6.8 L (8.4-10.2) mg/dL Procalcitonin 0.63 H (0.02-0.09) ng/mL Microbiology - Last 24 Hours (Table) 09/01/22 10:00 Gram Stain - Preliminary Sputum Sputum Culture - Preliminary Assessment and Plan Plan: Multilobar Pneumonia, sepsis. Chest x-ray on arrival showed a new left upper lobe masslike pneumonic consolidation with the chronic parenchymal changes that were seen on previous examinations in bilateral lower lobes. A follow up Chest CTA also redemonstrated the multifocal airspace disease with background moderate centrilobular emphysema. Chest x-ray 08/28/2022 shows worsening bilateral pneumonia. The patient underwent a bronchoscopy on 08/18/[address] Ayala, and the findings of essentially nonspecific. Obviously, this is a completely nondiagnostic bronchoscopy with negative cultures and benign tissue on the transbronchial biopsies in the right lower lobe. The patient's pro-calcitonin level has been dropping and the patient is currently on broad-spectrum antibiotics. Chest x-ray still showing multifocal pneumonia with some early cavitation of the right lower lobe. The patient is currently on a combination of meropenem and Levaquin and vancomycin and the patient is also on steroids. Note that the pro calcitonin level is also showing a further drop and most recent level is down to 0.63. Is also showed Bettina and I think this is a oropharyngeal colonization/infection. Based on that, Diflucan was also added to regimen and she is currently on broad-spectrum antibiotics. Chest x-ray from the 2022 shows stable multifocal pulmonary infiltrates. The patient remains on oxygen at 5 L. Breathing is nonlabored at this point in time. After the pro calcitonin level has been improving and is currently down to 0.6. Acute COPD exacerbation secondary to above. Patient does have baseline severe emphysema with an FEV1 that is 37% of predicted. Acute on chronic hypoxic respiratory failure normally maintained on 2 L home O2. She is currently on BiPAP settings 12/6 with an FiO2 of 50%, currently off BiPAP and the patient is currently on 6 L of O2 nasal cannula. Breathing is less labored compared to yesterday and the patient seems to much more stable on today's evaluation. Acute GI bleed and has received 3 units of packed red blood cells this admission thus far. Tagged RBC scan revealed no evidence of active GI bleeding, previous EGD and colonoscopy showed some mild gastritis, esophagitis, colonic and rectal polyps in the form of tubular adenoma. the colonoscopy showed some mild diverticulosis. No active bleeding at this point in time and the patient is on no anticoagulants. A repeat EGD was done yesterday and the findings were essentially negative for any acute bleeding. lobe is stable for now. A small bowel follow-through was done that was within normal limits and hemoglobin is currently at 7.3 New-onset atrial fibrillation with rapid ventricular rate. Currently in normal sinus rhythm Mild systolic heart failure with ejection fraction 45% in addition to moderate aortic insufficiency and concentric LVH Myelodysplastic syndrome, the patient has pancytopenia Chronic iron deficiency anemia with history of iron transfusions. There is a left adrenal nodule that was found on chest CTA which could represent benign lipid rich adrenal adenoma, however Bettina in the sputum, likely an upper airway colonization especially the patient has been on on multiple antibiotics and steroids. Ex-smoker Plan: Continue current antibiotic coverage included a combination of merrem , Levaquin and vancomycin and the patient is also on Diflucan Continue Solu-Medrol to 40 mg every 12 hours Chest x-rays being monitored , no major change in today chest x-ray Titrate oxygen flow to maintain a saturation above 90%, currently on 5 L Another sputum sample was collected, there is also still pending for now Suspect a superimposed bacterial infections pressure was elevated pro-calcitonin level, and the pro calcitonin level is essentially improving No evidence of any GI bleed and EGD and colonoscopy was completed , small bowel follow-through was also completed and is also negative and hemoglobin is stable at 7.3 Continue to monitor hemoglobin Continue COPD treatment Titrate the FiO2 as tolerated Follow-up chest x-ray in a.m. Prognosis is guarded We'll continue to follow May need another hematology evaluation,if her condition remains unchanged and or doesn't show complete clearing of the bilateral pulmonary infiltrates. All stable compared to yesterday. We'll continue to follow.
--- NOTE | 2022-09-02 10:47 | P.PN ---
Subjective Progress Note Date: 09/02/22 CHIEF COMPLAINT: GI bleed HISTORY OF PRESENT ILLNESS: Patient remains in the ICU. She is status post col onoscopy which revealed mild diverticulosis. There was a small 3-4 mm polyp in the transverse colon. Small hemorrhoids with no evidence of bleeding. No blood throughout the colon. EGD had shown mild gastritis and hiatal hernia. Patient had 3 soft, brown bowel movements this morning. No blood reported in the stools. She continues to have some discomfort in the left lower quadrant. She denies any nausea vomiting. Afebrile. Mildly tachycardic this morning WBC is 3.5 Hgb 7.3 platelets 61 sodium 138 potassium 3.8 creatinine 0.41. Small bowel follow-through shows delayed transit of contrast through the bowel no evidence of mass or findings to correlate with recurrent GI bleeding PHYSICAL EXAM: VITAL SIGNS: Reviewed. GENERAL: Well-developed in no acute distress. ABDOMEN: Soft. Nondistended. Mildly tender with palpation left lower quadrant NEUROLOGIC: Alert and oriented. Cranial nerves II through XII grossly intact. ASSESSMENT: 1. Acute GI bleed with maroon stools 2. Acute on chronic blood loss anemia 3. Prior history of diverticular bleed 4. History of myelodysplastic syndrome 5. Pneumonia PLAN: -Continue regular diet -Continue supportive care -Recommend repeat colonoscopy in 2 years -Continue supportive care -Continue monitoring hemoglobin Physician Water Purifier note has been reviewed by physician. Signing provider agrees with the documented findings, assessment, and plan of care. I have personally seen and examined the patient, reviewed the COPY CLERK /PAs history, exam and MDM and agree with the assessment and plan as written. Based on total visit time, I have performed more than 50% of the visit. As above: Patient doing better today. No bleeding at this time. Hemoglobin is stable. Small bowel series shows no mass lesion or other abnormalities to ex plain recent bleeding. To complete the workup would recommend capsule endoscopy which can be performed as an outpatient. Objective - Vital Signs Vital signs: Vital Signs Temp 97.8 F 09/02/22 08:00 Pulse 76 09/02/22 10:00 Resp 10 L 09/02/22 10:00 BP 123/56 09/02/22 10:00 Pulse Ox 96 09/02/22 10:00 FiO2 40 08/26/22 16:00 Intake & Output 09/01/22 09/02/22 09/02/22 18:59 06:59 18:59 Intake Total 850 1000 450 Output Total 1120 455 250 Balance -270 545 200 Weight 72 kg 73.2 kg Intake: IV 850 1000 350 0.9% @ 50 400 650 50 Fluconazole in NaCl,Iso- 100 Osm 100 mg In Saline 1 50ml.bag @ 50 mls/hr IVPB DAILY [facility] Rx#:[id number] Levaquin 100 Levofloxacin 750Mg-D5w 100 Pmx 750 mg In Dextrose/ Water 1 150ml.bag @ 100 mls/hr IVPB Q24H [facility] Rx#: [id number] Meropenem 1 gm In Sodium 100 100 100 Chloride 0.9% 100 ml @ 33 .3 mls/hr IVPB Q8HR [facility] Rx#:[id number] Vancomycin 250 250 Oral 100 Output: Urine 1120 455 250 Other: Voiding Method Indwelling Catheter Indwelling Catheter Indwelling Catheter # Bowel Movements 1 - Labs CBC & Chem 7: 09/02/22 04:43 09/02/22 04:43 Labs: Abnormal Lab Results - Last 24 Hours (Table) 09/02/22 09/02/22 Range/Units 04:43 04:43 WBC 3.5 L (3.8-10.6) k/uL RBC 2.55 L (3.80-5.40) m/uL Hgb 7.3 L (11.4-16.0) gm/dL Hct 22.9 L (34.0-46.0) % RDW 21.1 H (11.5-15.5) % Plt Count 61 L (150-450) k/uL Chloride 109 H (98-107) mmol/L Creatinine 0.41 L (0.52-1.04) mg/dL Glucose 132 H (74-99) mg/dL Calcium 6.8 L (8.4-10.2) mg/dL Microbiology - Last 24 Hours (Table) 09/01/22 10:00 Gram Stain - Preliminary Sputum Sputum Culture - Preliminary
--- NOTE | 2022-09-02 13:09 | P.PN ---
Subjective Progress Note Date: 09/02/22 Principal diagnosis: anemia Upon visit today patient is working with PT and is sitting in bedside chair. Pt just finished working with PT, so breathing is labored. She reports feeling well today, and breathing continues to improve. No reported episodes of bleeding. No other reported complaints Objective - Vital Signs Vital signs: Vital Signs Temp 97.9 F 09/02/22 12:00 Pulse 89 09/02/22 12:00 Resp 16 09/02/22 12:00 BP 133/66 09/02/22 12:00 Pulse Ox 97 09/02/22 12:00 FiO2 40 08/26/22 16:00 Intake & Output 09/01/22 09/02/22 09/02/22 18:59 06:59 18:59 Intake Total 850 1000 700 Output Total 1120 455 450 Balance -270 545 250 Weight 72 kg 73.2 kg Intake: IV 850 1000 500 0.9% @ 50 400 650 200 Fluconazole in NaCl,Iso- 100 Osm 100 mg In Saline 1 50ml.bag @ 50 mls/hr IVPB DAILY [facility] Rx#:[id number] Levaquin 100 Levofloxacin 750Mg-D5w 100 Pmx 750 mg In Dextrose/ Water 1 150ml.bag @ 100 mls/hr IVPB Q24H [facility] Rx#: [id number] Meropenem 1 gm In Sodium 100 100 100 Chloride 0.9% 100 ml @ 33 .3 mls/hr IVPB Q8HR [facility] Rx#:[id number] Vancomycin 250 250 Oral 200 Output: Urine 1120 455 450 Other: Voiding Method Indwelling Catheter Indwelling Catheter Indwelling Catheter # Bowel Movements 1 - Constitutional General appearance: Present: average body habitus, mild distress - EENT Eyes: Present: anicteric sclerae, EOMI ENT: Present: hearing grossly normal - Respiratory Respiratory: bilateral: CTA - Cardiovascular Rhythm: regular Heart sounds: normal: S1, S2 Abnormal Heart Sounds: Absent: systolic murmur, diastolic murmur, rub, S3 Gallop, S4 Gallop, click, other - Peripheral edema leg Peripheral Edema: right: 1+, left: Trace, bilateral: Pitting - Integumentary Integumentary: Present: pale - Musculoskeletal Musculoskeletal: Present: generalized weakness - Psychiatric Psychiatric: Present: A&O x's 3, appropriate affect, intact judgment & insight - Labs CBC & Chem 7: 09/02/22 04:43 09/02/22 04:43 Labs: Abnormal Lab Results - Last 24 Hours (Table) 09/02/22 09/02/22 Range/Units 04:43 04:43 WBC 3.5 L (3.8-10.6) k/uL RBC 2.55 L (3.80-5.40) m/uL Hgb 7.3 L (11.4-16.0) gm/dL Hct 22.9 L (34.0-46.0) % RDW 21.1 H (11.5-15.5) % Plt Count 61 L (150-450) k/uL Chloride 109 H (98-107) mmol/L Creatinine 0.41 L (0.52-1.04) mg/dL Glucose 132 H (74-99) mg/dL Calcium 6.8 L (8.4-10.2) mg/dL Microbiology - Last 24 Hours (Table) 09/01/22 10:00 Gram Stain - Preliminary Sputum Sputum Culture - Preliminary - Imaging and Cardiology reviewed small bowel series Assessment and Plan (1) Anemia Current Visit: Yes Status: Acute Priority: High Code(s): D64.9 - ANEMIA, UNSPECIFIED SNOMED Code(s): 183004129 (2) MDS (myelodysplastic syndrome), low grade Current Visit: Yes Status: Chronic Priority: High Code(s): D46.20 - REFRACTORY ANEMIA WITH EXCESS OF BLASTS, UNSPECIFIED SNOMED Code(s): 975953815 Plan: Anemia: -Hemoglobin 7.3 today. She has received 3 units of PRBCs, last unit given on 08/27. Platelets 61,000 -Iron studies consistent with GERA. However, at this time due to worries of acute infection will hold iron supplementation -No episodes of bleeding today. GI on consult, EGD showed gastritis, no acute bleeding noted. Colonoscopy revealed mild diverticulosis, small hemorrhoids, no acute bleeding noted. Small bowel series reveale delayed transit through the b owel, no evidence of mass or findings to coorelate with recurrent GI bleed. Nuclear medicine tagged RBC scan negative for acute bleed -Anemia likely multifactorial r/t infectious process and acute GI bleed -Will continue to monitor CBC -DIC and HIT workup negative -Please transfused for hgb less than 7 or if symptomatic MDS: -Progressive decrease in blood counts since May, anemia showing the most change. -It was previously discussed with pt that another bone marrow would be reasonable if no other cause for decreasing counts identified. This was discussed with patient. She is agreeable to the same. F/u planned in [address] Pathak to further discuss potential BM biopsy
--- NOTE | 2022-09-02 14:58 | P.PN ---
Subjective Progress Note Date: 09/02/22 62 year old female with MDS, GI bleed, COPD on 2 L oxygen at home presenting with dyspnea, palpitations, productive cough with occasional hemoptysis, chest pain. Patient was recently hospitalized for pneumonia as well as acute anemia, had a bronchoscopy at that time, patient was eventually discharged on oral antibiotics and prednisone taper. Since presenting to the ED this time, patient has been hypoxic, tachypneic, tachycardic requiring BiPAP for increased work of breathing. Patient was evaluated by pulmonology. Patient was started on IV antibiotics, steroids and bronchodilators for pneumonia as well as COPD exacerbation. CTA chest showed no PE, multifocal airspace disease with moderate emphysema, worsening left upper lobe, also incidental left adrenal nodule. On 08/26, patient had an episode of hypertension and unresponsiveness. Patient was then transferred to the medical ICU. Echocardiogram report reviewed: Mildly impaired LV function with EF 45%, moderate AI. She is now having bloody bowel movements. She is status post 3 units of PRBCs. Surgery was consulted. Tagged RBC scan did not show any active GI bleeding. EGD was done 08/30 which was negative for bleed. C-scope was done on 08/31 which showed mild diverticulosis. Small bowel follow-through was also negative for GI bleed. Her hemoglobin has remained stable. Patient was seen and examined. No acute events overnight. Sitting in a chair. Patient reports improvement in her breathing. She is on 6L NC. Her baseline is 2L NC at home. General: Tired appearing, no distress, appears older than stated age Derm: warm, dry Head: atraumatic, normocephalic, symmetric Eyes: EOMI, no lid lag, anicteric sclera Mouth: no lip lesion, mucus membranes moist Cardiovascular: S1S2 reg, no murmur Lungs: CTA bilateral, no rhonchi, no rales , no accessory muscle use, nasal cannula 6 L Abdominal: soft, nontender to palpation, no guarding, no appreciable organomegaly Ext: no gross muscle atrophy, no edema, no contractures Neuro: no focal neuro deficits Psych: Alert and oriented x 3 #Acute GI bleed, blood loss anemia #Acute on chronic hypoxic respiratory failure #Septic secondary to left upper lobe pneumonia #Acute COPD exacerbation #Acute on chronic macrocytic anemia #History of MDS #Left adrenal nodule, incidental finding Resolved: Sinus tachycardia Based on my assessment of this patient, this patient meets a high complexity level of care. I have reviewed the following workers compensation consultant notes: Pulmonology note 09/02, continue Solumedrol 40 mg IV BID, continue vancomycin/ levaquin/meropenem/diflucan I have reviewed the results of the following tests: CBC shows hemoglobin is 7.3 and platelet count of 61. This is likely related to MDS. Hemoglobin worsened due to GI bleed requiring 3 unit PRBC. Hemoglobin has remained stable. BMP shows chloride 109, glucose 132, calcium is 6.8. Small bowel follow-through is negative for GI bleed. I have ordered the following tests: CBC and BMP ordered tomorrow morning. I have discussed the care of this patient with the following independent historian: None. I have independently interpreted the following test below: Chest x-ray shows multifocal infiltrates essentially unchanged from yesterday's chest x-ray. I have discussed the management of this patient with the following physician: None. This patient has a high risk of morbidity due to the following reasons: Patient has a history of COPD on 2L home O2 with severe exacerbation or progression of disease which poses a threat to life or bodily function. She is currently being treated for pneumonia with Vancomycin 1000 mg IV every 12 hours which is nephrotoxic and requires daily monitoring of her renal function. Continued on Levaquin 750 mg IV daily and Meropenem 1g IV every 8 hours. Continued on Diflucan 100 mg IV daily. Her hemoglobin has remained stable over the past 3 days. Her hemoglobin has remained stable over the past 3 days. Objective - Vital Signs Vital signs: Vital Signs Temp 97.9 F 09/02/22 12:00 Pulse 92 09/02/22 14:00 Resp 12 09/02/22 14:00 BP 131/63 09/02/22 14:00 Pulse Ox 94 L 09/02/22 14:00 FiO2 40 08/26/22 16:00 Intake & Output 09/01/22 09/02/22 09/02/22 18:59 06:59 18:59 Intake Total 850 1000 700 Output Total 1120 455 450 Balance -270 545 250 Weight 72 kg 73.2 kg Intake: IV 850 1000 500 0.9% @ 50 400 650 200 Fluconazole in NaCl,Iso- 100 Osm 100 mg In Saline 1 50ml.bag @ 50 mls/hr IVPB DAILY [facility] Rx#:[id number] Levaquin 100 Levofloxacin 750Mg-D5w 100 Pmx 750 mg In Dextrose/ Water 1 150ml.bag @ 100 mls/hr IVPB Q24H [facility] Rx#: [id number] Meropenem 1 gm In Sodium 100 100 100 Chloride 0.9% 100 ml @ 33 .3 mls/hr IVPB Q8HR [facility] Rx#:[id number] Vancomycin 250 250 Oral 200 Output: Urine 1120 455 450 Other: Voiding Method Indwelling Catheter Indwelling Catheter Indwelling Catheter # Bowel Movements 1 - Labs CBC & Chem 7: 09/02/22 04:43 09/02/22 04:43 Labs: Abnormal Lab Results - Last 24 Hours (Table) 09/02/22 09/02/22 Range/Units 04:43 04:43 WBC 3.5 L (3.8-10.6) k/uL RBC 2.55 L (3.80-5.40) m/uL Hgb 7.3 L (11.4-16.0) gm/dL Hct 22.9 L (34.0-46.0) % RDW 21.1 H (11.5-15.5) % Plt Count 61 L (150-450) k/uL Chloride 109 H (98-107) mmol/L Creatinine 0.41 L (0.52-1.04) mg/dL Glucose 132 H (74-99) mg/dL Calcium 6.8 L (8.4-10.2) mg/dL Microbiology - Last 24 Hours (Table) 09/01/22 10:00 Gram Stain - Preliminary Sputum Sputum Culture - Preliminary
[2022-09-02] MEDS: SODIUM CHLORIDE 0.9% 1,000 ML IV SCH (18:11)
[2022-09-02] MEDS: ACETAMINOPHEN TAB 325 MG TAB PO PRN (20:52)
[2022-09-03] MEDS: HYDROmorphone 0.5 MG/0.5 ML SYRINGE IVP PRN ×3 (00:29→18:44)
[2022-09-03] MEDS: MEROPENEM 1 GM in SODIUM CHLORIDE 0.9% 100 ML IVPB SCH ×3 (00:29→16:43)
[2022-09-03] MEDS: ALPRAZolam 0.25 MG TAB PO PRN ×3 (05:15→21:13)
[2022-09-03] MEDS: VANCOMYCIN 1,000 MG in SODIUM CHLORIDE 0.9% 250 ML IVPB SCH ×3 (05:18→16:44)
[2022-09-03 06:25] LABS: Anisocytosis Moderate; HCT 23.1 % (34.0-46.0); HGB 7.4 gm/dL (11.4-16.0); Hypochromasia Moderate; MCH 29.4 pg (25.0-35.0); MCHC 31.9 g/dL (31.0-37.0); MCV 92.3 fL (80.0-100.0); Macrocytosis Slight; Mean Platelet Volume 17.8; Poikilocytosis Slight; RDW 21.3 % (11.5-15.5); WBC 4.2 k/uL (3.8-10.6)
[2022-09-03 06:34] LABS: African American GFR (CKD) >90 (>60 ml/min/1.73 sqM); Anion Gap 2 mmol/L; Blood Urea Nitrogen 18 mg/dL (7-17); Calcium 7.5 mg/dL (8.4-10.2); Carbon Dioxide 30 mmol/L (22-30); Chloride 107 mmol/L (98-107); Glucose 122 mg/dL (74-99); Non-African American GFR(CKD) >90 (>60 ml/min/1.73 sqM); Potassium 3.5 mmol/L (3.5-5.1); Sodium 139 mmol/L (137-145)
[2022-09-03 06:46] LABS: Platelet Count 60 k/uL (150-450)
--- NOTE | 2022-09-03 07:16 | XR ---
EXAMINATION TYPE: XR chest 1V portable DATE OF EXAM: 09/03/2022 HISTORY: Shortness of breath. COMPARISON: 09/02/2022 TECHNIQUE: Single view of the chest is submitted. FINDINGS: Demonstrated are scattered senescent parenchymal change. Coarse infiltrate is seen at the lung bases as well as the left upper lobe without significant interv al change. The heart is stable. Hilar and mediastinal structures are within normal limits. Degenerative changes are seen of the dorsal spine. IMPRESSION: 1. Stable pneumonia.
[2022-09-03] MEDS: BUDESONIDE 1 MG/2 ML NEBU INHALATION SCH ×2 (07:51→19:47)
[2022-09-03] MEDS: FORMOTEROL FUMARATE 20 MCG/2 ML NEBU INHALATION SCH ×2 (07:51→19:47)
[2022-09-03] MEDS: IPRATROPIUM-ALBUTEROL 3 ML NEB INHALATION SCH ×4 (07:51→19:48)
[2022-09-03] MEDS: methylPREDNISolone SOD SUCCI 40 MG/ML 1 ML VIAL IV SCH ×2 (09:17→21:13)
[2022-09-03] MEDS: LEVOFLOXACIN 750MG-D5W PMX 750 MG in DEXTROSE/WATER 1 150ML.BAG IVPB SCH (09:17)
[2022-09-03] MEDS: METOPROLOL TARTRATE 25 MG TAB PO SCH ×2 (09:18→21:13)
[2022-09-03] MEDS: PANTOPRAZOLE 40 MG/10 ML VIAL IVP SCH ×2 (09:18→21:13)
--- NOTE | 2022-09-03 09:43 | P.PN ---
Subjective Progress Note Date: 09/03/22 CHIEF COMPLAINT: GI bleed HISTORY OF PRESENT ILLNESS: Patient remains in the ICU. She is status post col onoscopy which revealed mild diverticulosis. There was a small 3-4 mm polyp in the transverse colon. Small hemorrhoids with no evidence of bleeding. No blood throughout the colon. EGD had shown mild gastritis and hiatal hernia. Small bowel follow-through with no evidence of GI bleed. Patient continues to complain of left lower quadrant pain. The pain is not worsening. She's had no further bowel movements. Yesterday his bowel movement or brown. Denies any nausea or vomiting. Afebrile. Heart rate 110 WBC is 4.2 Hgb 7.4 platelets 60 sodium is 139 potassium 3.5 creatinine 0.41 Hematology following and discussing possible bone marrow biopsy. PHYSICAL EXAM: VITAL SIGNS: Reviewed. GENERAL: Well-developed in no acute distress. ABDOMEN: Soft. Nondistended. Mildly tender with palpation left lower quadrant NEUROLOGIC: Alert and oriented. Cranial nerves II through XII grossly intact. ASSESSMENT: 1. Acute GI bleed with maroon stools 2. Acute on chronic blood loss anemia 3. Prior history of diverticular bleed 4. History of myelodysplastic syndrome 5. Pneumonia PLAN: -To complete workup for GI bleed would recommend capsule Endoscopy Which Can Be Performed Outpatient -Continue regular diet -Continue supportive care -Recommend repeat colonoscopy in 2 years -Continue monitoring hemoglobin Physician Tape Transferrer note has been reviewed by physician. Signing provider agrees with the documented findings, assessment, and plan of care. I have personally seen and examined the patient, reviewed the TOP LIFT COM[employer]ER /PAs history, exam and MDM and agree with the assessment and plan as written. Based on total visit time, I have performed more than 50% of the visit. As above: Patient doing better today. She was having some left lower abdominal pain earlier today. CAT scan was performed shows a small amount of ascites. No obvious abnormalities to explain her pain. No further bleeding. We'll sign off. Recommend outpatient capsule endoscopy. Please call for any concerns. Objective - Vital Signs Vital signs: Vital Signs Temp 97.6 F 09/03/22 00:00 Pulse 110 H 09/03/22 08:14 Resp 15 09/03/22 07:00 BP 138/73 09/03/22 07:00 Pulse Ox 94 L 09/03/22 07:53 FiO2 40 08/26/22 16:00 Intake & Output 09/02/22 09/03/22 09/03/22 18:59 06:59 18:59 Intake Total 1750 700 300 Output Total 825 565 40 Balance 925 135 260 Intake: IV 1050 600 300 0.9% @ 50 400 600 50 Fluconazole in NaCl,Iso- 100 Osm 100 mg In Saline 1 50ml.bag @ 50 mls/hr IVPB DAILY [facility] Rx#:[id number] Levofloxacin 750Mg-D5w 100 Pmx 750 mg In Dextrose/ Water 1 150ml.bag @ 100 mls/hr IVPB Q24H [facility] Rx#: [id number] Meropenem 1 gm In Sodium 200 Chloride 0.9% 100 ml @ 33 .3 mls/hr IVPB Q8HR [facility] Rx#:[id number] Vancomycin 1,000 mg In 250 250 Sodium Chloride 0.9% 250 ml @ 125 mls/hr IVPB Q8H [facility] Rx#:[id number] Oral 700 100 Output: Urine 825 565 40 Other: Voiding Method Indwelling Catheter Indwelling Catheter - Labs CBC & Chem 7: 09/03/22 05:34 09/03/22 05:34 Labs: Abnormal Lab Results - Last 24 Hours (Table) 09/03/22 09/03/22 Range/Units 05:34 05:34 RBC 2.50 L (3.80-5.40) m/uL Hgb 7.4 L (11.4-16.0) gm/dL Hct 23.1 L (34.0-46.0) % RDW 21.3 H (11.5-15.5) % Plt Count 60 L (150-450) k/uL BUN 18 H (7-17) mg/dL Creatinine 0.41 L (0.52-1.04) mg/dL Glucose 122 H (74-99) mg/dL Calcium 7.5 L (8.4-10.2) mg/dL Microbiology - Last 24 Hours (Table) 09/01/22 10:00 Gram Stain - Preliminary Sputum Sputum Culture - Preliminary Yeast species
--- NOTE | 2022-09-03 10:50 | P.PN ---
Subjective Progress Note Date: 09/03/22 On today's evaluation of 08/30/2022, the patient still being treated for a multifocal pneumonia with extensive left upper lobe consolidation. The patient currently is on oxygen at 3 L/m nasal cannula. This is most likely a bacterial pneumonia. Pro-calcitonin level at time of admission was 28.5 and has not been checked since. The white cell count is low at 3.6, with a hemoglobin of 7.3. Noted the patient has been having episode of GI bleed and during this current hospitalization, she has received a total of 3 units of packed RBC. The patient has been having melanotic stools. We have GI surgeries on the case and were still waiting for that interventions and scoping. Meanwhile, I repeat chest x- ray was done and it shows still multilobar and mitral focal pneumonia most extensive in the left upper lobe in addition to the left lower lobe and the right lower lobe. The patient remains on Zosyn. Hemodynamically the patient is off no pressors. She is stable. IV fluids are running at the rate of 0.9 at the rate of 50 mL an hour. She is known to have advanced COPD with an FEV1 of 37% of predicted. She is an ex-smoker. She has chronic anemia and mild dysplasia. She has also chronic systolic heart failure with an ejection fraction of based on echocardiogram that was done during this current admission. This echocardiogram was done on 08/26/2022 and there is also evidence of mode rate degree of aortic insufficiency and moderate left ventricular hypertrophy. Her cardiac rhythm is currently sinus. It was thought that the patient was having episodes of itchy fibrillation. She was given IV heparin which obviously facilitated her GI bleeding.. Note that the patient has undergone previous EGD and colonoscopy on 08/21/2020. The patient was found to have mild chronic gastritis, H. pylori was negative, the patient also had benign squamous glandular mucosal changes in mild chronic esophagitis and was negative for metaplasia. 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 In terms of her lung involvement, the patient has been seen Dr. Ayala on outpatient basis for shortness of breath and the patient is known to have chronic nodular, interstitial areas and areas of consolidation.. A CAT scan of the chest that was done on 05/12/2022 showed waxing and waning patchy airspace opacities and nodular changes. Note that along with history of mild dysplasia, inflammatory processes/infectious processes has been considered. Note that the bronchoscopy was done by Dr. Ayala on 08/18/2022 and the cultures came back negative. Furthermore, transbronchial biopsy of the lung was done and it showed benign mucosa and alveolar tissue. No necrotizing granulomatous process or fungal elements identified. There was possibly some endogenous lipid pneumonia. Condition is obviously progressed. I reviewed the follow-up CAT scan of the chest showed multifocal changes with extensive worsening in the left upper lobe On today's evaluation of the 2022, the patient is being seen for a follow- up. The patient has an acute hypoxic respiratory failure with evidence of multifocal pneumonia. Exact etiology is not clear. The patient's condition is progressed. Previous bronchoscopy has not yielded any microbial growth. Previous transbronchial biopsies were also nondiagnostic. As such, I brought in the patient's antibiotic coverage. For now, she is on a combination of Zosyn and Levaquin and vancomycin. Her breathing is still labored and the patient is somewhat tachypneic. Pulse ox in the order of 89% on 6 L of oxygen by nasal cannula. White suppositive 3.5 at the patient has chronic pancytopenia with a hemoglobin of 7.8 and a platelet count of 5. A repeat chest x-ray done today showed multilobar patchy pulmonary infiltrates involving the left upper lobe, left lower lobe and the right lower lobe. There is also some cavitation developing in the right lower lobe on today's chest x-ray. Findings essentially the same without any significant change since yesterday. Note that the patient's pro-calcitonin level that was obtained yesterday was at 1.89 and this is up significantly from 28 and as such antibiotic coverage will be kept the same. As mentioned, there is no microbial growth obtained on this patient. The sputum was positive for yeast. In terms of hemodynamics, the patient is hemodynamically stable. She is currently on IV fluids at 50 mL an hour of serafin l saline. Her echocardiogram has shown chronic systolic heart failure and mild impairment of the left ventricle ejection fraction which was in order of 45%. The patient also has moderate degree of aortic regurgitation. She has advanced COPD and she has an FEV1 of 37% of predicted and she is an ex-smoker. On a separate note, there is no episodes of ongoing GI bleed. Hemoglobin is stable at 7.8. The patient underwent a EGD yesterday that showed mild gastritis and hiatal hernia. There was no evidence of an acute bleeding. Neurologically, she is alert and awake. She is tolerating her diet. No nausea. No emesis. No other significant events overnight. On 09/01/2022, the patient is being seen for a follow-up. Her condition is stable and she feels good today. He feels less short of breath compared to yesterday. His breathing is not labored. The patient is currently on 6 L of oxygen by nasal cannula. Repeat chest x-ray shows stable point bilateral pulmonary infiltrates. Nevertheless, the patient has a declining level of pro- calcitonin which has dropped down to 0.63 from a maximum level of 28.5. The patient is also covered with broad-spectrum antibiotics. She is on a com bination of Merrem, Levaquin and vancomycin. Unfortunately, no cultures are available. Nevertheless, I believe that this is a bacterial infection with elevated pro-calcitonin level and the rapidly evolving bilateral pulmonary infiltrates. As mentioned, previous arthroscopy was nondiagnostic. In terms of her hematologic profile, the patient could be relatively immunosuppressed. She has a myelodysplasia and her white cell count today's of 3.1 with a platelet count of 68 and a hemoglobin of 7.5. Hematology is on the case. Electrolytes show a potassium level III.2 that needs to be replaced and the sodium level is at 142, BUN is at 12 with a creatinine of 0.4. Vancomycin level is at 19.3. She is hemodynamically stable. Cardiac rhythm is sinus. Urine operas adequate. She is tolerating her diet. No altered mentation. She underwent a colonoscopy yesterday that showed mild diverticulosis, no evidence of any acute bleeding. Her EGD that was done earlier also showed no signs of any acute upper GI bleeding. She had some minimal gastritis and hiatal hernia. Her hemoglobin has remained stable. An echocardiogram on 08/26/2022 showed mild impairment of LV function with moderate degree of aortic insufficiency, left ventricle ejection fraction was 45%. 09/02/2022, the patient feels fatigued and tired. She is currently on 5 L of oxygen by nasal cannula and she is on a broad-spectrum antibiotic coverage including meropenem, Levaquin and vancomycin. Diflucan was also added as the patient had some oropharyngeal candidiasis. Repeat chest x-ray from today shows multifocal pulmonary infiltrates and no significant change compared to yesterday. However, there may be some limited improvement since her admission to the intensive care unit. The patient will be kept on broad-spectrum antibiotics for now. Small bowel follow-through was done and there is no evidence of any abnormalities or bleed at this point in time. Hemoglobin is at 7.3, slightly lower compared to yesterday. The patient did not have any bright red blood per rectum or melanotic stools. Platelet count is at 61, the whites echoes at 3.5, BUN is at 70 with a creatinine of 0.4. Vancomycin trough level is 23.5. She is afebrile. No other new complaints otherwise for now. She is receiving lactated Ringer at the rate of 20 mL an hour. She remains on her routine bronchodilators. She is also on IV Solu-Medrol and the dose has been modified to 40 mg every 12 hours. 09/03/2022, the patient remains on 5 L of oxygen by nasal cannula. She is stable. No interval worsening in her rest or status. A repeat chest x-ray was done that shows stable vital. Over pneumonia. I feel that the left upper lobe pulmonary infiltrates slightly improved. There is some early cavitation the right lower lobe. Meanwhile, the patient's hemodynamically stable. Earlier this morning, she developed some abdominal pain. She also has 2 episodes of diarrhea yesterday. Stool samples of them been collected. I think it's important to check her for C. diff especially the patient has been on broad- spectrum antibiotics. Sputum Gram stain and culture came back positive for Bettina and the patient is already on Diflucan. Her WBC count of 4.2 with a hemoglobin of 7.4 and a platelet count of 60. BUN is at 80 with a creatinine of 0.4 and a sodium level is at 139. Hemodynamically stable. No other significant events otherwise for now. She remains on IV Solu-Medrol. Antibiotic coverage is unchanged. Objective - Vital Signs Vital signs: Vital Signs Temp 97.4 F L 09/03/22 10:00 Pulse 113 H 09/03/22 10:00 Resp 19 09/03/22 10:00 BP 135/71 09/03/22 10:00 Pulse Ox 92 L 09/03/22 10:00 FiO2 40 08/26/22 16:00 Intake & Output 09/02/22 09/03/22 09/03/22 18:59 06:59 18:59 Intake Total 1750 700 600 Output Total 825 565 390 Balance 925 135 210 Weight 73.2 kg Intake: IV 1050 600 600 0.9% @ 50 400 600 100 Fluconazole in NaCl,Iso- 100 Osm 100 mg In Saline 1 50ml.bag @ 50 mls/hr IVPB DAILY [facility] Rx#:[id number] Levofloxacin 750Mg-D5w 100 150 Pmx 750 mg In Dextrose/ Water 1 150ml.bag @ 100 mls/hr IVPB Q24H [facility] Rx#: [id number] Meropenem 1 gm In Sodium 200 100 Chloride 0.9% 100 ml @ 33 .3 mls/hr IVPB Q8HR [facility] Rx#:[id number] Vancomycin 1,000 mg In 250 250 Sodium Chloride 0.9% 250 ml @ 125 mls/hr IVPB Q8H [facility] Rx#:[id number] Oral 700 100 Output: Urine 825 565 390 Other: Voiding Method Indwelling Catheter Indwelling Catheter - Exam GENERAL EXAM: Alert, pale, weak 62-year-old female, on 5 L nasal cannula, comfortable in no apparent distress. HEAD: Normocephalic. EYES: Normal reaction of pupils, equal size. NOSE: Clear with pink turbinates. THROAT: No erythema or exudates. NECK: No masses, no JVD. CHEST: No chest wall deformity. LUNGS: Equal air entry with bilateral scattered rhonchi, end expiratory wheeze, diminished. CVS: S1 and S2 normal with no audible murmur, regular rhythm. ABDOMEN: No hepatosplenomegaly, normal bowel sounds, no guarding or rigidity. SPINE: No scoliosis or deformity SKIN: No rashes CENTRAL NERVOUS SYSTEM: No focal deficits, tone is normal in all 4 extremities. EXTREMITIES: There is no peripheral edema. No clubbing, no cyanosis. Peripheral pulses are intact. - Labs CBC & Chem 7: 09/03/22 05:34 09/03/22 05:34 Labs: Abnormal Lab Results - Last 24 Hours (Table) 09/03/22 09/03/22 Range/Units 05:34 05:34 RBC 2.50 L (3.80-5.40) m/uL Hgb 7.4 L (11.4-16.0) gm/dL Hct 23.1 L (34.0-46.0) % RDW 21.3 H (11.5-15.5) % Plt Count 60 L (150-450) k/uL BUN 18 H (7-17) mg/dL Creatinine 0.41 L (0.52-1.04) mg/dL Glucose 122 H (74-99) mg/dL Calcium 7.5 L (8.4-10.2) mg/dL Microbiology - Last 24 Hours (Table) 09/01/22 10:00 Gram Stain - Preliminary Sputum Sputum Culture - Preliminary Yeast species Assessment and Plan Plan: Multilobar Pneumonia, sepsis. Chest x-ray on arrival showed a new left upper lobe masslike pneumonic consolidation with the chronic parenchymal changes that were seen on previous examinations in bilateral lower lobes. A follow up Chest CTA also redemonstrated the multifocal airspace disease with background moderate centrilobular emphysema. Chest x-ray 08/28/2022 shows worsening bilateral pneumonia. The patient underwent a bronchoscopy on 08/18/[address] Ayala, and the findings of essentially nonspecific. Obviously, this is a completely nondiagnostic bronchoscopy with negative cultures and benign tissue on the transbronchial biopsies in the right lower lobe. The patient's pro-calcitonin level has been dropping and the patient is currently on broad-spectrum antibiotics. Chest x-ray still showing multifocal pneumonia with some early cavitation of the right lower lobe. The patient is currently on a combination of meropenem and Levaquin and vancomycin and the patient is also on steroids. Note that the pro calcitonin level is also showing a further drop and most recent level is down to 0.63. Is also showed Bettina and I think this is a oropharyngeal colonization/infection. Based on that, Diflucan was also added to regimen and she is currently on broad-spectrum antibiotics. Chest x-ray from the 2022 shows stable multifocal pulmonary infiltrates. The patient remains on oxygen at 5 L. Breathing is nonlabored at this point in time. After the pro calcitonin level has been improving and is currently down to 0.6. Acute diarrhea/abdominal pain. Rule out C. diff colitis. This could be an antibiotic-induced diarrhea/abdominal pain further investigation with a CAT scan of the abdomen was ordered by the general surgeon. Acute COPD exacerbation secondary to above. Patient does have baseline severe emphysema with an FEV1 that is 37% of predicted. Acute on chronic hypoxic respiratory failure normally maintained on 2 L home O2. She is currently on BiPAP settings / with an FiO2 of 50%, currently off BiPAP and the patient is currently on 6 L of O2 nasal cannula. Breathing is less labored compared to yesterday and the patient seems to much more stable on today's evaluation. Acute GI bleed and has received 3 units of packed red blood cells this admission thus far. Tagged RBC scan revealed no evidence of active GI bleeding, previous EGD and colonoscopy showed some mild gastritis, esophagitis, colonic and rectal polyps in the form of tubular adenoma. the colonoscopy showed some mild diverticulosis. No active bleeding at this point in time and the patient is on no anticoagulants. A repeat EGD was done yesterday and the findings were essentially negative for any acute bleeding. lobe is stable for now. A small bowel follow-through was done that was within normal limits and hemoglobin is currently at 7.3 New-onset atrial fibrillation with rapid ventricular rate. Currently in normal sinus rhythm Mild systolic heart failure with ejection fraction 45% in addition to moderate aortic insufficiency and concentric LVH Myelodysplastic syndrome, the patient has pancytopenia Chronic iron deficiency anemia with history of iron transfusions. There is a left adrenal nodule that was found on chest CTA which could represent benign lipid rich adrenal adenoma, however Bettina in the sputum, likely an upper airway colonization especially the patient has been on on multiple antibiotics and steroids. Ex-smoker Plan: Stop the Levaquin Check stool for C. diff CAT scan of the abdomen with by mouth contrast. The same time will scan her chest to assess progression of the pulmonary infiltrates Continue combination of merrem , vancomycin and Diflucan Continue Solu-Medrol to 40 mg every 12 hours Chest x-rays being monitored , no major change in today chest x-ray Titrate oxygen flow to maintain a saturation above 90%, currently on 5 L Suspect a superimposed bacterial infections pressure was elevated pro-calcitonin level, and the pro calcitonin level is essentially improving No evidence of any GI bleed and EGD and colonoscopy was completed , small bowel follow-through was also completed and is also negative and hemoglobin is stable at 7.4 Continue to monitor hemoglobin Continue COPD treatment Titrate the FiO2 as tolerated Prognosis is guarded We'll continue to follow May need another bronchoscopy evaluation,if her condition remains unchanged and or doesn't show complete clearing of the bilateral pulmonary infiltrates. All stable compared to yesterday. We'll continue to follow.
[2022-09-03] MEDS: FLUCONAZOLE IN NACL,ISO-OSM 100 MG in SALINE 1 50ML.BAG IVPB SCH (10:56)
[2022-09-03] MEDS: IOPAMIDOL CONTRAST (ORAL USE) VIAL PO PRN ×2 (10:57→11:58)
[2022-09-03] MEDS: SODIUM CHLORIDE 0.9% 1,000 ML IV SCH (10:57)
[2022-09-03] MEDS: LACTATED RINGERS 1,000 ML IV SCH (11:37)
--- NOTE | 2022-09-03 13:05 | CT ---
EXAMINATION TYPE: CT ChestAbdPelvis wo con DATE OF EXAM: 09/03/2022 COMPARISON: Prior PET/CT January 01, 2022. Most recent chest CT May 12, 2022 and older studies HISTORY: LLQ abdominal pain. Chest pain. CT DLP: 687.9 mGycm. Automated Exposure Control for Dose Reduction was Utilized. TECHNIQUE: CT scan of the thorax, abdomen and pelvis is performed with oral but without IV contrast. FINDINGS: LUNGS: Moderate underlying emphysematous change is redemonstrated. On current study there are small l eft greater than right pleural effusions with associated compressive atelectasis. There is irregular consolidation with air bronchograms throughout the left upper lobe and also likely involving portions of the lingula and left lower lobe centrally. Areas of irregular consolidation or groundglass opacit y in the periphery of the right lung remain present. MEDIASTINUM: Persistent enlarged right in main pulmonary artery suggesting underlying pulmonary arter y hypertension. Heart size upper limits of normal. No significant pericardial effusion. Coronary rima ry calcification redemonstrated. OTHER: Low dense blood pool raises concern for underlying anemia. Correlate clinically. LIVER/GB: New trace right lateral ascites PANCREAS: No significant abnormality is seen. SPLEEN: No significant abnormality is seen. ADRENALS: No significant abnormality is seen. KIDNEYS: No significant abnormality is seen. BOWEL: Oral contrast reaches the level of the rectum. There is no suspicion of small or large bowel d ilatation. There are areas of mild to moderate wall thickening throughout the left and sigmoid colon. No significant surrounding fat stranding GENITAL ORGANS: Moderate amount of free fluid in the pelvis surrounding the uterus. LYMPH NODES: No greater than 1cm abdominal or pelvic lymph nodes are appreciated. OSSEOUS STRUCTURES: No significant abnormality is seen. OTHER: Moderate diffuse subcutaneous edema on current study. Moderate to severe calcified plaque of the infrarenal abdominal aorta extending to iliac branch vesse ls is redemonstrated. IMPRESSION: 1. Moderate subcutaneous edema with small bilateral pleural effusions and mild peritoneal ascites is consistent with presumed desire fluid overload state. 2. Moderate underlying emphysematous change with persistent peripheral infiltrates in the right lung similar to most recent CT. There are new areas of consolidation with air bronchograms throughout the left upper and lower lobes and lingula. 3. Mild to moderate wall thickening in the left and sigmoid colon could reflect product of a uncompli cated colitis versus poor distention. Correlate clinically. No bowel obstruction.
--- NOTE | 2022-09-03 13:36 | P.PN ---
Subjective Progress Note Date: 09/03/22 62 year old female with MDS, GI bleed, COPD on 2 L oxygen at home presenting with dyspnea, palpitations, productive cough with occasional hemoptysis, chest pain. Patient was recently hospitalized for pneumonia as well as acute anemia, had a bronchoscopy at that time, patient was eventually discharged on oral antibiotics and prednisone taper. Since presenting to the ED this time, patient has been hypoxic, tachypneic, tachycardic requiring BiPAP for increased work of breathing. Patient was evaluated by pulmonology. Patient was started on IV antibiotics, steroids and bronchodilators for pneumonia as well as COPD exacerbation. CTA chest showed no PE, multifocal airspace disease with moderate emphysema, worsening left upper lobe, also incidental left adrenal nodule. On 08/26, patient had an episode of hypertension and unresponsiveness. Patient was then transferred to the medical ICU. Echocardiogram report reviewed: Mildly impaired LV function with EF 45%, moderate AI. She is now having bloody bowel movements. She is status post 3 units of PRBCs. Surgery was consulted. Tagged RBC scan did not show any active GI bleeding. EGD was done 08/30 which was negative for bleed. C-scope was done on 08/31 which showed mild diverticulosis. Small bowel follow-through was also negative for GI bleed. Her hemoglobin has remained stable. Patient was seen and examined. No acute events overnight. Patient reports no changes in her breathing. She reports abdominal pain, left-sided, colicky in n ature. She is on 6L NC. Her baseline is 2L NC at home. General: Tired appearing, no distress, appears older than stated age Derm: warm, dry Head: atraumatic, normocephalic, symmetric Eyes: EOMI, no lid lag, anicteric sclera Mouth: no lip lesion, mucus membranes moist Cardiovascular: S1S2 reg, no murmur Lungs: CTA bilateral, no rhonchi, no rales , no accessory muscle use, nasal cannula 6 L Abdominal: soft, nontender to palpation, no guarding, no appreciable organomegaly Ext: no gross muscle atrophy, no edema, no contractures Neuro: no focal neuro deficits Psych: Alert and oriented x 3 #Acute GI bleed, blood loss anemia #Acute on chronic hypoxic respiratory failure #Septic secondary to left upper lobe pneumonia #Acute COPD exacerbation #History of MDS #Left adrenal nodule, incidental finding Resolved: Sinus tachycardia Based on my assessment of this patient, this patient meets a high complexity level of care. I have reviewed the following senior professional services consultant notes: Pulmonology note 09/03, continue Solumedrol 40 mg IV BID, continue vancomyci n/meropenem/diflucan, discontinue Levaquin, obtain CT AP and chest. I have reviewed the results of the following tests: CBC shows hemoglobin is 7.4 and platelet count of 60. This is likely related to MDS. Hemoglobin worsened due to GI bleed requiring 3 unit PRBC. Hemoglobin has remained stable. BMP shows BUN of 18 and creatinine is 0.41. I have ordered the following tests: CBC and BMP ordered tomorrow morning. CT chest, abdomen and pelvis ordered. C. diff ordered. I have discussed the care of this patient with the following independent historian: None. I have independently interpreted the following test below: Chest x-ray shows multifocal infiltrates essentially unchanged from yesterday's chest x-ray. I have discussed the management of this patient with the following physician: None. This patient has a high risk of morbidity due to the following reasons: Patient has a history of COPD on 2L home O2 with severe exacerbation or progression of disease which poses a threat to life or bodily function. She is currently being treated for pneumonia with Vancomycin 1000 mg IV every 12 hours which is nephrotoxic and requires daily monitoring of her renal function. Continued on Meropenem 1g IV every 8 hours and Diflucan 100 mg IV daily. Levaquin is discontinued. Her hemoglobin has remained stable over the past 3 days. Her hemoglobin has remained stable over the past 3 days. Plans for [place]-[facility]. She will likely need bronchoscopy since her respiratory status has not improved much on multiple antibiotics. Objective - Vital Signs Vital signs: Vital Signs Temp 97.4 F L 09/03/22 10:00 Pulse 114 H 09/03/22 12:03 Resp 19 09/03/22 11:00 BP 131/65 09/03/22 11:00 Pulse Ox 96 09/03/22 11:00 FiO2 40 08/26/22 16:00 Intake & Output 09/02/22 09/03/22 09/03/22 18:59 06:59 18:59 Intake Total 7679 213 3664 Output Total 825 565 420 Balance 925 135 805 Weight 73.2 kg Intake: IV 1050 600 625 0.9% @ 50 400 600 125 Fluconazole in NaCl,Iso- 100 Osm 100 mg In Saline 1 50ml.bag @ 50 mls/hr IVPB DAILY [facility] Rx#:[id number] Levofloxacin 750Mg-D5w 100 150 Pmx 750 mg In Dextrose/ Water 1 150ml.bag @ 100 mls/hr IVPB Q24H [facility] Rx#: [id number] Meropenem 1 gm In Sodium 200 100 Chloride 0.9% 100 ml @ 33 .3 mls/hr IVPB Q8HR [facility] Rx#:[id number] Vancomycin 1,000 mg In 250 250 Sodium Chloride 0.9% 250 ml @ 125 mls/hr IVPB Q8H [facility] Rx#:[id number] Oral 700 100 600 Output: Urine 825 565 420 Other: Voiding Method Indwelling Catheter Indwelling Catheter Indwelling Catheter - Labs CBC & Chem 7: 09/03/22 05:34 09/03/22 05:34 Labs: Abnormal Lab Results - Last 24 Hours (Table) 09/03/22 09/03/22 Range/Units 05:34 05:34 RBC 2.50 L (3.80-5.40) m/uL Hgb 7.4 L (11.4-16.0) gm/dL Hct 23.1 L (34.0-46.0) % RDW 21.3 H (11.5-15.5) % Plt Count 60 L (150-450) k/uL BUN 18 H (7-17) mg/dL Creatinine 0.41 L (0.52-1.04) mg/dL Glucose 122 H (74-99) mg/dL Calcium 7.5 L (8.4-10.2) mg/dL Microbiology - Last 24 Hours (Table) 09/01/22 10:00 Gram Stain - Preliminary Sputum Sputum Culture - Preliminary Yeast species
[2022-09-04] MEDS: MEROPENEM 1 GM in SODIUM CHLORIDE 0.9% 100 ML IVPB SCH ×3 (00:11→15:44)
[2022-09-04] MEDS: HYDROmorphone 0.5 MG/0.5 ML SYRINGE IVP PRN ×5 (00:13→21:19)
--- NOTE | 2022-09-04 00:34 | CT ---
EXAMINATION TYPE: CT brain wo con DATE OF EXAM: 09/04/2022 COMPARISON: None HISTORY: Unequal pupils, low platelets. CT DLP: 1158.6 mGycm Automated exposure control for dose reduction was used. Images of the brain obtained with no contrast. There is cerebral cortical atrophy. There is mild hypodensity in the periventricular white matter. Th ere is no mass effect or midline shift. No sign of intracranial hemorrhage. Skull base is intact. The re is normal aeration of the mastoid sinuses. IMPRESSION: Cerebral atrophy and chronic white matter changes. No hemorrhage.
[2022-09-04] MEDS: POTASSIUM CHLORIDE ER 20 MEQ TAB.ER PO SCH ×2 (02:11→02:12)
[2022-09-04] MEDS: ACETAMINOPHEN TAB 325 MG TAB PO PRN (02:14)
[2022-09-04] MEDS: VANCOMYCIN 1,000 MG in SODIUM CHLORIDE 0.9% 250 ML IVPB SCH ×2 (05:30→19:10)
[2022-09-04] MEDS: SODIUM CHLORIDE 0.9% 1,000 ML IV SCH (05:34)
[2022-09-04 06:19] LABS: Anisocytosis Moderate; HCT 21.5 % (34.0-46.0); Hypochromasia Moderate; MCH 29.5 pg (25.0-35.0); MCHC 31.4 g/dL (31.0-37.0); MCV 93.9 fL (80.0-100.0); Macrocytosis Slight; Mean Platelet Volume 18.3; Poikilocytosis Slight; RBC 2.29 m/uL (3.80-5.40); RDW 22.2 % (11.5-15.5)
[2022-09-04 06:27] LABS: HGB 6.8 gm/dL (11.4-16.0); Platelet Count 57 k/uL (150-450)
[2022-09-04 06:37] LABS: African American GFR (CKD) >90 (>60 ml/min/1.73 sqM); Anion Gap 4 mmol/L; Blood Urea Nitrogen 21 mg/dL (7-17); Calcium 7.7 mg/dL (8.4-10.2); Carbon Dioxide 29 mmol/L (22-30); Chloride 105 mmol/L (98-107); Glucose 190 mg/dL (74-99); Magnesium 2.2 mg/dL (1.6-2.3); Non-African American GFR(CKD) >90 (>60 ml/min/1.73 sqM); Sodium 138 mmol/L (137-145)
[2022-09-04 07:02] LABS: Band Neutrophils % 4 %; Neutrophils % (M) 84 %; Nucleated Red Blood Cells 12 /100 WBC (0-0); Total Cells Counted 100
[2022-09-04 07:03] LABS: Anisocytosis (M) Present; Lymphocytes # (M) 0.34 k/uL (1.0-4.8); Monocytes # (M) 0.17 k/uL (0-1.0); Poikilocytosis (M) Present; Polychromasia Present; WBC 4.2 k/uL (3.8-10.6)
[2022-09-04 07:04] LABS: RBC Fragments Present
--- NOTE | 2022-09-04 08:05 | P.PN ---
Subjective Progress Note Date: 09/04/22 On today's evaluation of 08/30/2022, the patient still being treated for a multifocal pneumonia with extensive left upper lobe consolidation. The patient currently is on oxygen at 3 L/m nasal cannula. This is most likely a bacterial pneumonia. Pro-calcitonin level at time of admission was 28.5 and has not been checked since. The white cell count is low at 3.6, with a hemoglobin of 7.3. Noted the patient has been having episode of GI bleed and during this current hospitalization, she has received a total of 3 units of packed RBC. The patient has been having melanotic stools. We have GI surgeries on the case and were still waiting for that interventions and scoping. Meanwhile, I repeat chest x- ray was done and it shows still multilobar and mitral focal pneumonia most extensive in the left upper lobe in addition to the left lower lobe and the right lower lobe. The patient remains on Zosyn. Hemodynamically the patient is off no pressors. She is stable. IV fluids are running at the rate of 0.9 at the rate of 50 mL an hour. She is known to have advanced COPD with an FEV1 of 37% of predicted. She is an ex-smoker. She has chronic anemia and mild dysplasia. She has also chronic systolic heart failure with an ejection fraction of based on echocardiogram that was done during this current admission. This echocardiogram was done on 08/26/2022 and there is also evidence of mode rate degree of aortic insufficiency and moderate left ventricular hypertrophy. Her cardiac rhythm is currently sinus. It was thought that the patient was having episodes of itchy fibrillation. She was given IV heparin which obviously facilitated her GI bleeding.. Note that the patient has undergone previous EGD and colonoscopy on 08/21/2020. The patient was found to have mild chronic gastritis, H. pylori was negative, the patient also had benign squamous glandular mucosal changes in mild chronic esophagitis and was negative for metaplasia. 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 In terms of her lung involvement, the patient has been seen Dr. Ayala on outpatient basis for shortness of breath and the patient is known to have chronic nodular, interstitial areas and areas of consolidation.. A CAT scan of the chest that was done on 05/12/2022 showed waxing and waning patchy airspace opacities and nodular changes. Note that along with history of mild dysplasia, inflammatory processes/infectious processes has been considered. Note that the bronchoscopy was done by Dr. Ayala on 08/18/2022 and the cultures came back negative. Furthermore, transbronchial biopsy of the lung was done and it showed benign mucosa and alveolar tissue. No necrotizing granulomatous process or fungal elements identified. There was possibly some endogenous lipid pneumonia. Condition is obviously progressed. I reviewed the follow-up CAT scan of the chest showed multifocal changes with extensive worsening in the left upper lobe On today's evaluation of the 2022, the patient is being seen for a follow- up. The patient has an acute hypoxic respiratory failure with evidence of multifocal pneumonia. Exact etiology is not clear. The patient's condition is progressed. Previous bronchoscopy has not yielded any microbial growth. Previous transbronchial biopsies were also nondiagnostic. As such, I brought in the patient's antibiotic coverage. For now, she is on a combination of Zosyn and Levaquin and vancomycin. Her breathing is still labored and the patient is somewhat tachypneic. Pulse ox in the order of 89% on 6 L of oxygen by nasal cannula. White suppositive 3.5 at the patient has chronic pancytopenia with a hemoglobin of 7.8 and a platelet count of 5. A repeat chest x-ray done today showed multilobar patchy pulmonary infiltrates involving the left upper lobe, left lower lobe and the right lower lobe. There is also some cavitation developing in the right lower lobe on today's chest x-ray. Findings essentially the same without any significant change since yesterday. Note that the patient's pro-calcitonin level that was obtained yesterday was at 1.89 and this is up significantly from 28 and as such antibiotic coverage will be kept the same. As mentioned, there is no microbial growth obtained on this patient. The sputum was positive for yeast. In terms of hemodynamics, the patient is hemodynamically stable. She is currently on IV fluids at 50 mL an hour of serafin l saline. Her echocardiogram has shown chronic systolic heart failure and mild impairment of the left ventricle ejection fraction which was in order of 45%. The patient also has moderate degree of aortic regurgitation. She has advanced COPD and she has an FEV1 of 37% of predicted and she is an ex-smoker. On a separate note, there is no episodes of ongoing GI bleed. Hemoglobin is stable at 7.8. The patient underwent a EGD yesterday that showed mild gastritis and hiatal hernia. There was no evidence of an acute bleeding. Neurologically, she is alert and awake. She is tolerating her diet. No nausea. No emesis. No other significant events overnight. On 09/01/2022, the patient is being seen for a follow-up. Her condition is stable and she feels good today. He feels less short of breath compared to yesterday. His breathing is not labored. The patient is currently on 6 L of oxygen by nasal cannula. Repeat chest x-ray shows stable point bilateral pulmonary infiltrates. Nevertheless, the patient has a declining level of pro- calcitonin which has dropped down to 0.63 from a maximum level of 28.5. The patient is also covered with broad-spectrum antibiotics. She is on a com bination of Merrem, Levaquin and vancomycin. Unfortunately, no cultures are available. Nevertheless, I believe that this is a bacterial infection with elevated pro-calcitonin level and the rapidly evolving bilateral pulmonary infiltrates. As mentioned, previous arthroscopy was nondiagnostic. In terms of her hematologic profile, the patient could be relatively immunosuppressed. She has a myelodysplasia and her white cell count today's of 3.1 with a platelet count of 68 and a hemoglobin of 7.5. Hematology is on the case. Electrolytes show a potassium level III.2 that needs to be replaced and the sodium level is at 142, BUN is at 12 with a creatinine of 0.4. Vancomycin level is at 19.3. She is hemodynamically stable. Cardiac rhythm is sinus. Urine operas adequate. She is tolerating her diet. No altered mentation. She underwent a colonoscopy yesterday that showed mild diverticulosis, no evidence of any acute bleeding. Her EGD that was done earlier also showed no signs of any acute upper GI bleeding. She had some minimal gastritis and hiatal hernia. Her hemoglobin has remained stable. An echocardiogram on 08/26/2022 showed mild impairment of LV function with moderate degree of aortic insufficiency, left ventricle ejection fraction was 45%. 09/02/2022, the patient feels fatigued and tired. She is currently on 5 L of oxygen by nasal cannula and she is on a broad-spectrum antibiotic coverage including meropenem, Levaquin and vancomycin. Diflucan was also added as the patient had some oropharyngeal candidiasis. Repeat chest x-ray from today shows multifocal pulmonary infiltrates and no significant change compared to yesterday. However, there may be some limited improvement since her admission to the intensive care unit. The patient will be kept on broad-spectrum antibiotics for now. Small bowel follow-through was done and there is no evidence of any abnormalities or bleed at this point in time. Hemoglobin is at 7.3, slightly lower compared to yesterday. The patient did not have any bright red blood per rectum or melanotic stools. Platelet count is at 61, the whites echoes at 3.5, BUN is at 70 with a creatinine of 0.4. Vancomycin trough level is 23.5. She is afebrile. No other new complaints otherwise for now. She is receiving lactated Ringer at the rate of 20 mL an hour. She remains on her routine bronchodilators. She is also on IV Solu-Medrol and the dose has been modified to 40 mg every 12 hours. 09/03/2022, the patient remains on 5 L of oxygen by nasal cannula. She is stable. No interval worsening in her rest or status. A repeat chest x-ray was done that shows stable vital. Over pneumonia. I feel that the left upper lobe pulmonary infiltrates slightly improved. There is some early cavitation the right lower lobe. Meanwhile, the patient's hemodynamically stable. Earlier this morning, she developed some abdominal pain. She also has 2 episodes of diarrhea yesterday. Stool samples of them been collected. I think it's important to check her for C. diff especially the patient has been on broad- spectrum antibiotics. Sputum Gram stain and culture came back positive for Bettina and the patient is already on Diflucan. Her WBC count of 4.2 with a hemoglobin of 7.4 and a platelet count of 60. BUN is at 80 with a creatinine of 0.4 and a sodium level is at 139. Hemodynamically stable. No other significant events otherwise for now. She remains on IV Solu-Medrol. Antibiotic coverage is unchanged. 09/04/2022, the patient remains on oxygen at 5 L. I'm not seeing much of progress in terms of respiratory status. A CAT scan of the chest was done yesterday and it showed multifocal pulmonary infiltrates worse in the left upper lobe and background emphysema. Unfortunately, not much of an improvement in the pulmonary consolidation and air bronchograms and there is also infiltration in the lingula and the lower lobes bilaterally. The patient has been covered with broad-spectrum antibiotics. Subsequently, the patient developed diarrhea. C. diff colitis was suspected. The stool for C. diff came back negative. Meanwhile, a CAT scan of the abdomen was done and it showed some mild to moderate wall thickening of the left colon and the sigmoid colon, suggestive of an underlying colitis. The patient was taken off the Levaquin. The patient remains on a combination of meropenem, vancomycin, and Diflucan. She is suspected to have a low-grade GI bleed also. Her stool was liquid mineral 1. Hemoglobin dropped down to 6.8 and she is going to be receiving a unit of packed RBC. Note that she also has a low platelet of 57. She has mild dysplasia. White cell cause of 4.2. BUN is at 21 with a creatinine of 0.4. Sodium is at 138. A CAT scan of the brain was done yesterday due to the presence of unequal pupils and the CAT scan came back negative and the patient is awake and alert and moving all 4 extremities without any limitation. No significant abdominal pain. No nausea. I talked again about the possibility of another bronchoscopy, at least the bronchial alveolar lavage of the left upper lobe to see if there is any underlying opportunistic infections. She'll be kept on the same antibiotic coverage for now. She is on 5 L of oxygen by nasal cannula. She remains on IV Solu-Medrol. Cardiac rhythm is sinus. No pressors. Fluid balance has been in the order of +1 L. She'll be given a dose of Lasix also. IV fluids are running in the form of normal saline at rate of 25 mL an hour. She as a drop in her pro-calcitonin level from 28 down to 0.6. Objective - Vital Signs Vital signs: Vital Signs Temp 99.0 F 09/04/22 04:00 Pulse 99 09/04/22 07:00 Resp 24 09/04/22 07:00 BP 120/61 09/04/22 07:00 Pulse Ox 96 09/04/22 07:00 FiO2 5 09/04/22 04:00 Intake & Output 09/03/22 09/04/22 09/04/22 18:59 06:59 18:59 Intake Total 1875 875 25 Output Total 930 775 100 Balance 945 100 -75 Weight 73.2 kg 74 kg Intake: IV 1275 425 25 0.9% @ 50 425 425 25 Levofloxacin 750Mg-D5w 150 Pmx 750 mg In Dextrose/ Water 1 150ml.bag @ 100 mls/hr IVPB Q24H [facility] Rx#: [id number] Meropenem 1 gm In Sodium 200 Chloride 0.9% 100 ml @ 33 .3 mls/hr IVPB Q8HR [facility] Rx#:[id number] Vancomycin 1,000 mg In 500 Sodium Chloride 0.9% 250 ml @ 125 mls/hr IVPB Q8H [facility] Rx#:[id number] Oral 600 450 Output: Urine 930 775 100 Other: Voiding Method Indwelling Catheter Indwelling Catheter # Bowel Movements 2 1 - Exam GENERAL EXAM: Alert, pale, weak 62-year-old female, on 5 L nasal cannula, comfortable in no apparent distress. HEAD: Normocephalic. EYES: Normal reaction of pupils, equal size. NOSE: Clear with pink turbinates. THROAT: No erythema or exudates. NECK: No masses, no JVD. CHEST: No chest wall deformity. LUNGS: Equal air entry with bilateral scattered rhonchi, end expiratory wheeze, diminished. CVS: S1 and S2 normal with no audible murmur, regular rhythm. ABDOMEN: No hepatosplenomegaly, normal bowel sounds, no guarding or rigidity. SPINE: No scoliosis or deformity SKIN: No rashes CENTRAL NERVOUS SYSTEM: No focal deficits, tone is normal in all 4 extremities. EXTREMITIES: There is no peripheral edema. No clubbing, no cyanosis. Peripheral pulses are intact. - Labs CBC & Chem 7: 09/04/22 05:25 09/04/22 05:25 Labs: Abnormal Lab Results - Last 24 Hours (Table) 09/04/22 09/04/22 09/04/22 Range/Units 05:25 05:25 06:53 RBC 2.29 L (3.80-5.40) m/uL Hgb 6.8 L* (11.4-16.0) gm/dL Hct 21.5 L (34.0-46.0) % RDW 22.2 H (11.5-15.5) % Plt Count 57 L (150-450) k/uL Lymphocytes # (Manual) 0.34 L (1.0-4.8) k/uL Nucleated RBCs 12 H (0-0) /100 WBC BUN 21 H (7-17) mg/dL Creatinine 0.41 L (0.52-1.04) mg/dL Glucose 190 H (74-99) mg/dL Calcium 7.7 L (8.4-10.2) mg/dL Crossmatch See Detail Microbiology - Last 24 Hours (Table) 09/01/22 10:00 Gram Stain - Preliminary Sputum Sputum Culture - Preliminary Bettina sp,not albicans/galbr Assessment and Plan Plan: Multilobar Pneumonia, sepsis. Chest x-ray on arrival showed a new left upper lobe masslike pneumonic consolidation with the chronic parenchymal changes that were seen on previous examinations in bilateral lower lobes. A follow up Chest CTA also redemonstrated the multifocal airspace disease with background moderate centrilobular emphysema. Chest x-ray 08/28/2022 shows worsening bilateral pneumonia. The patient underwent a bronchoscopy on 08/18/[address] Ayala, and the findings of essentially nonspecific. Obviously, this is a completely nondiagnostic bronchoscopy with negative cultures and benign tissue on the transbronchial biopsies in the right lower lobe. The patient's pro-calcitonin level has been dropping and the patient is currently on broad-spectrum antibiotics. Chest x-ray still showing multifocal pneumonia with some early cavitation of the right lower lobe. The patient is currently on a combination of meropenem and Levaquin and vancomycin and the patient is also on steroids. Note that the pro calcitonin level is also showing a further drop and most recent level is down to 0.63. Is also showed Bettina and I think this is a oropharyngeal colonization/infection. Based on that, Diflucan was also added to regimen and she is currently on broad-spectrum antibiotics. Chest x-ray from the 2022 shows stable multifocal pulmonary infiltrates. The patient remains on oxygen at 5 L. Breathing is nonlabored at this point in time. After the pro calcitonin level has been improving and is currently down to 0.6. Acute diarrhea/abdominal pain. Rule out C. diff colitis. This could be an antibiotic-induced diarrhea/abdominal pain further investigation with a CAT scan of the abdomen was ordered by the general surgeon. Acute COPD exacerbation secondary to above. Patient does have baseline severe emphysema with an FEV1 that is 37% of predicted. Acute on chronic hypoxic respiratory failure normally maintained on 2 L home O2. She is currently on BiPAP settings 05/11 with an FiO2 of 50%, currently off BiPAP and the patient is currently on 6 L of O2 nasal cannula. Breathing is less labored compared to yesterday and the patient seems to much more stable on today's evaluation. Acute GI bleed and has received 3 units of packed red blood cells this admission thus far. Tagged RBC scan revealed no evidence of active GI bleeding, previous EGD and colonoscopy showed some mild gastritis, esophagitis, colonic and rectal polyps in the form of tubular adenoma. the colonoscopy showed some mild diverticulosis. No active bleeding at this point in time and the patient is on no anticoagulants. A repeat EGD was done yesterday and the findings were essentially negative for any acute bleeding. lobe is stable for now. A small bowel follow-through was done that was within normal limits and hemoglobin is currently at 6.8, along with a component of colitis as noted on the CAT scan of the abdomen Left-sided colitis/sigmoid colitis, probably antibiotic induced Diarrhea secondary to above New-onset atrial fibrillation with rapid ventricular rate. Currently in normal sinus rhythm Mild systolic heart failure with ejection fraction 45% in addition to moderate aortic insufficiency and concentric LVH Myelodysplastic syndrome, the patient has pancytopenia Chronic iron deficiency anemia with history of iron transfusions. There is a left adrenal nodule that was found on chest CTA which could represent benign lipid rich adrenal adenoma, however Bettina in the sputum, likely an upper airway colonization especially the patient has been on on multiple antibiotics and steroids. Ex-smoker Plan: Transfusions the patient 3 units of packed RBC Give the patient does of Lasix following her packed RBC transfusion Check stool for C. diff and this was done yesterday and the C. diff was negative CAT scan of the abdomen with by mouth contrast Is consistent with colitis, probably antibiotic induced. CAT scan of the chest showing persistent consolidation Continue combination of merrem , vancomycin and Diflucan Continue Solu-Medrol to 40 mg every 12 hours Titrate oxygen flow to maintain a saturation above 90%, currently on 5 L Suspect a superimposed bacterial infections pressure was elevated pro-calcitonin level, and the pro calcitonin level is essentially improving Continue to monitor hemoglobin Continue COPD treatment Titrate the FiO2 as tolerated Prognosis is guarded We'll continue to follow I'm going to talk to the patient about another another bronchoscopy I will see if were able to completed over this weekend All stable compared to yesterday. We'll continue to follow. overall prognosis is poor and the patient's condition remains critical and as such the patient be kept in ICU. Critical care evaluation that was done in more than 30 minutes Time with Patient: Greater than 30
[2022-09-04] MEDS: IPRATROPIUM-ALBUTEROL 3 ML NEB INHALATION SCH ×5 (08:09→19:48)
[2022-09-04] MEDS: FORMOTEROL FUMARATE 20 MCG/2 ML NEBU INHALATION SCH ×3 (08:09→19:49)
[2022-09-04] MEDS: BUDESONIDE 1 MG/2 ML NEBU INHALATION SCH ×3 (08:09→19:49)
[2022-09-04] MEDS ORDERED: MIDAZOLAM 2 MG/2 ML VIAL ONE (08:31)
[2022-09-04] MEDS ORDERED: PROPOFOL 10 MG/ML 20 ML VIAL IV ONE (08:31)
[2022-09-04] MEDS ORDERED: fentaNYL (PF) 50 MCG/ML 2 ML AMP ONE (08:31)
--- NOTE | 2022-09-04 08:49 | P.PCN ---
Date of Procedure: 09/04/22 Preoperative Diagnosis: Persistent bilateral pneumonia, immunosuppression Postoperative Diagnosis: Persistent bilateral pneumonia, immunosuppression Procedure(s) Performed: Bronchoscopy and a bronchial lavage Anesthesia: MAC Surgeon: Carlos Arcos Pathology: other Condition: critical Disposition: ICU Operative Findings: This procedure was done in the intensive care unit. The patient was placed on 6 L of oxygen nasal cannula. The patient was given a combination of Versed, propofol and fentanyl. The patient was done by [employer]OR[employer] CLERK the bedside. After achieving adequate sedation, a bite block was applied to her mouth and following that the flexible bronchoscope was introduced through her mouth and was advanced into the upper airway. Epiglottis was easily identified. The vocal cord was functional and within normal limits. Normal abduction and adduction of the vocal cord was seen. Following that, the flexible bronchoscope was introduced into the upper trachea. Examination of the airway was done. The entire trachea, bilateral mainstem bronchi, right upper lobe bronchus, bronchus intermedius, right middle lobe bronchus, right lower lobe bronchus, left upper lobe bronchus and left lower lobe bronchus were all visualized. 10 segments on the right than the 8 segments on the left were also visualized. The rest or secretions were loose and scans. No endobronchial tumors. No lesions. No bleeding. Bronchoscope was wedged into the anterior segment of the left upper lobe and a bronchioloalveolar lavage was done. A total of 60 mL of fluid was infused and 20 mL was aspirated without any major difficulties. The aspirate was nonbloody. The procedure was completed within 5 minutes. The bronchoscope was removed. The patient was placed on 100% nonrebreather facemask for further recovery. We'll continue to follow . The BAL will be sent for microbial cultures and analysis.
[2022-09-04] MEDS: FLUCONAZOLE IN NACL,ISO-OSM 100 MG in SALINE 1 50ML.BAG IVPB SCH (09:31)
[2022-09-04] MEDS: PANTOPRAZOLE 40 MG/10 ML VIAL IVP SCH ×2 (09:31→21:19)
[2022-09-04] MEDS: METOPROLOL TARTRATE 25 MG TAB PO SCH ×2 (10:06→21:19)
[2022-09-04] MEDS: ALPRAZolam 0.25 MG TAB PO PRN ×3 (10:06→21:18)
--- NOTE | 2022-09-04 10:17 | XR ---
EXAMINATION TYPE: XR chest 1V portable DATE OF EXAM: 09/04/2022 CLINICAL HISTORY: Difficulty breathing status post bronchoscopy. TECHNIQUE: Single AP portable semiupright view of the chest is obtained. COMPARISON: Chest x-ray and CT from one day earlier FINDINGS: Background chronic emphysematous and parenchymal fibrotic change with bilateral lower lung and left upper lung increased opacities is redemonstrated. No pneumothorax seen after bronchoscopy. Small bilateral pleural effusions on CT less well seen on x-ray. Stable mild cardiomegaly. Osseous st ructures are intact. IMPRESSION: Mild cardiomegaly and chronic changes with bilateral lower lung and left upper lung acute infiltrates and/or edema redemonstrated. No significant change from one day earlier.
[2022-09-04] MEDS: methylPREDNISolone SOD SUCCI 40 MG/ML 1 ML VIAL IV SCH ×2 (11:27→21:18)
[2022-09-04] MEDS ORDERED: FUROSEMIDE 10 MG/ML 10 ML VIAL IV STA (11:28)
[2022-09-04 13:50] LABS: Glucose,Whole Blood 88 mg/dL (70-110)
--- NOTE | 2022-09-04 17:07 | P.PN ---
Subjective Progress Note Date: 09/04/22 62 year old female with MDS, GI bleed, COPD on 2 L oxygen at home presenting with dyspnea, palpitations, productive cough with occasional hemoptysis, chest pain. Patient was recently hospitalized for pneumonia as well as acute anemia, had a bronchoscopy at that time, patient was eventually discharged on oral antibiotics and prednisone taper. Since presenting to the ED this time, patient has been hypoxic, tachypneic, tachycardic requiring BiPAP for increased work of breathing. Patient was evaluated by pulmonology. Patient was started on IV antibiotics, steroids and bronchodilators for pneumonia as well as COPD exacerbation. CTA chest showed no PE, multifocal airspace disease with moderate emphysema, worsening left upper lobe, also incidental left adrenal nodule. On 08/26, patient had an episode of hypertension and unresponsiveness. Patient was then transferred to the medical ICU. Echocardiogram report reviewed: Mildly impaired LV function with EF 45%, moderate AI. She is now having bloody bowel movements. She is status post 3 units of PRBCs. Surgery was consulted. Tagged RBC scan did not show any active GI bleeding. EGD was done 08/30 which was negative for bleed. C-scope was done on 08/31 which showed mild diverticulosis. Small bowel follow-through was also negative for GI bleed. Her hemoglobin has remained stable until 09/04 when her hemoglobin dropped to 6.8. She also und erwent bronchoscopy with more cultures collected on 09/04. Patient was seen and examined. No acute events overnight. Patient reports no changes in her breathing. Patient had 2 maroon-colored bowel movements today. Hemoglobin has dropped to 6.8 today. She is on 6L NC. Her baseline is 2L NC at home. General: Tired appearing, no distress, appears older than stated age Derm: warm, dry Head: atraumatic, normocephalic, symmetric Eyes: EOMI, no lid lag, anicteric sclera Mouth: no lip lesion, mucus membranes moist Cardiovascular: S1S2 reg, no murmur Lungs: CTA bilateral, no rhonchi, no rales , no accessory muscle use, nasal cannula 6 L Abdominal: soft, nontender to palpation, no guarding, no appreciable organomegaly Ext: no gross muscle atrophy, no edema, no contractures Neuro: no focal neuro deficits Psych: Alert and oriented x 3 #Acute GI bleed, blood loss anemia #Acute on chronic hypoxic respiratory failure #Septic secondary to left upper lobe pneumonia #Acute COPD exacerbation #History of MDS #Left adrenal nodule, incidental finding Resolved: Sinus tachycardia Based on my assessment of this patient, this patient meets a high complexity level of care. I have reviewed the following senior health consultant notes: Pulmonology note 09/04, continue Solumedrol 40 mg IV BID, continue vancomycin/meropenem/diflucan, plans for another bronchoscopy I have reviewed the results of the following tests: CBC shows hemoglobin of 6.8 and platelet count of 57. BMP shows BUN of 21 and creatinine of 0.41, glucose of 190 and calcium 7.7. This is likely related to MDS. Hemoglobin worsened due to GI bleed requiring [address] chest abdomen pelvis was done which showed findings of colitis and continued consolidation with air bronchograms to the left upper and lower lobes along with small bilateral pleural effusion and ascites. C. diff was negative. I have ordered the following tests: CBC and BMP ordered tomorrow morning. I have discussed the care of this patient with the following independent historian: None. I have independently interpreted the following test below: Chest x-ray shows multifocal infiltrates essentially unchanged from yesterday's chest x-ray. I have discussed the management of this patient with the following physician: The case was discussed with Dr. Arcos, bronchoscopy completed today and more cultures collected, patient continues to be on 6 L nasal cannula, continue IV antibiotics, poor prognosis. This patient has a high risk of morbidity due to the following reasons: Patient has a history of COPD on 2L home O2 with severe exacerbation or progression of disease which poses a threat to life or bodily function. She is currently being treated for pneumonia with Vancomycin 1000 mg IV every 12 hours which is nephrotoxic and requires daily monitoring of her renal function. Continued on Meropenem 1g IV every 8 hours and Diflucan 100 mg IV daily. Levaquin is discontinued. Her hemoglobin has dropped to 6.8 today so we will order [address] chest shows worsening infiltrates and there is plans for bronchoscopy today. Her colitis is likely antibiotic induced which we will continue to monitor on current antibiotic regimen. Objective - Vital Signs Vital signs: Vital Signs Temp 97.8 F 09/04/22 12:00 Pulse 112 H 09/04/22 15:31 Resp 18 09/04/22 14:00 BP 107/65 09/04/22 14:00 Pulse Ox 93 L 09/04/22 14:00 FiO2 100 09/04/22 09:00 Intake & Output 09/03/22 09/04/22 09/04/22 18:59 06:59 18:59 Intake Total 1875 875 810 Output Total 979 047 6453 Balance 945 100 -1915 Weight 73.2 kg 74 kg Intake: IV 1275 425 300 0.9% @ 50 425 425 150 Fluconazole in NaCl,Iso- 50 Osm 100 mg In Saline 1 50ml.bag @ 50 mls/hr IVPB DAILY [facility] Rx#:[id number] Levofloxacin 750Mg-D5w 150 Pmx 750 mg In Dextrose/ Water 1 150ml.bag @ 100 mls/hr IVPB Q24H [facility] Rx#: [id number] Meropenem 1 gm In Sodium 200 100 Chloride 0.9% 100 ml @ 33 .3 mls/hr IVPB Q8HR [facility] Rx#:[id number] Vancomycin 1,000 mg In 500 Sodium Chloride 0.9% 250 ml @ 125 mls/hr IVPB Q8H [facility] Rx#:[id number] Oral 600 450 200 Blood Product 310 Rc As-1 Unit 310 [id number] Output: Urine 965 709 6070 Other: Voiding Method Indwelling Catheter Indwelling Catheter Indwelling Catheter # Bowel Movements 2 1 - Labs CBC & Chem 7: 09/04/22 05:25 09/04/22 05:25 Labs: Abnormal Lab Results - Last 24 Hours (Table) 09/04/22 09/04/22 09/04/22 Range/Units 05:25 05:25 06:53 RBC 2.29 L (3.80-5.40) m/uL Hgb 6.8 L* (11.4-16.0) gm/dL Hct 21.5 L (34.0-46.0) % RDW 22.2 H (11.5-15.5) % Plt Count 57 L (150-450) k/uL Lymphocytes # (Manual) 0.34 L (1.0-4.8) k/uL Nucleated RBCs 12 H (0-0) /100 WBC BUN 21 H (7-17) mg/dL Creatinine 0.41 L (0.52-1.04) mg/dL Glucose 190 H (74-99) mg/dL Calcium 7.7 L (8.4-10.2) mg/dL Crossmatch See Detail Microbiology - Last 24 Hours (Table) 09/01/22 10:00 Gram Stain - Final Sputum Sputum Culture - Final Bettina sp,not albicans/galbr
[2022-09-04 18:40] LABS: Anisocytosis Moderate; HCT 23.7 % (34.0-46.0); HGB 7.7 gm/dL (11.4-16.0); Hypochromasia Slight; MCH 29.5 pg (25.0-35.0); MCHC 32.7 g/dL (31.0-37.0); MCV 90.5 fL (80.0-100.0); Macrocytosis Slight; Poikilocytosis Moderate; RBC 2.62 m/uL (3.80-5.40); RDW 21.9 % (11.5-15.5); WBC 5.5 k/uL (3.8-10.6)
[2022-09-04 19:08] LABS: Platelet Count 59 k/uL (150-450)
[2022-09-05] MEDS: HYDROmorphone 0.5 MG/0.5 ML SYRINGE IVP PRN ×5 (01:03→17:25)
[2022-09-05] MEDS: MEROPENEM 1 GM in SODIUM CHLORIDE 0.9% 100 ML IVPB SCH ×4 (01:22→23:49)
[2022-09-05] MEDS: SODIUM CHLORIDE 0.9% 1,000 ML IV SCH ×2 (02:41→23:49)
[2022-09-05] MEDS ORDERED: VANCOMYCIN TROUGH DUE 1 EACH MISC MISCELLANE ONE (05:00)
[2022-09-05] MEDS: VANCOMYCIN 1,000 MG in SODIUM CHLORIDE 0.9% 250 ML IVPB SCH ×2 (05:25→17:21)
[2022-09-05 05:52] LABS: Anisocytosis Moderate; HCT 24.3 % (34.0-46.0); HGB 7.8 gm/dL (11.4-16.0); Hypochromasia Slight; MCH 29.1 pg (25.0-35.0); MCHC 32.1 g/dL (31.0-37.0); MCV 90.6 fL (80.0-100.0); Macrocytosis Slight; Mean Platelet Volume 18.4; Poikilocytosis Moderate; RBC 2.68 m/uL (3.80-5.40); RDW 21.6 % (11.5-15.5)
[2022-09-05 05:54] LABS: African American GFR (CKD) >90 (>60 ml/min/1.73 sqM); Anion Gap -1 mmol/L; Blood Urea Nitrogen 22 mg/dL (7-17); Calcium 8.2 mg/dL (8.4-10.2); Carbon Dioxide 36 mmol/L (22-30); Chloride 100 mmol/L (98-107); Glucose 139 mg/dL (74-99); Magnesium 2.1 mg/dL (1.6-2.3); Non-African American GFR(CKD) >90 (>60 ml/min/1.73 sqM); Potassium 4.4 mmol/L (3.5-5.1); Sodium 135 mmol/L (137-145)
[2022-09-05 06:37] LABS: Platelet Count 56 k/uL (150-450)
--- NOTE | 2022-09-05 07:47 | P.PN ---
Subjective Progress Note Date: 09/04/22 Pt awake s/p bronch. Appears mod SOB at rest. No f/c/n/v. Persistent weakness. No obvious bleeding per discussion with nursing Objective - Vital Signs Vital signs: Vital Signs Temp 98.6 F 09/05/22 04:00 Pulse 110 H 09/05/22 07:00 Resp 13 09/05/22 07:00 BP 123/70 09/05/22 07:00 Pulse Ox 93 L 09/05/22 07:00 FiO2 100 09/04/22 16:00 Intake & Output 09/04/22 09/05/22 09/05/22 18:59 06:59 18:59 Intake Total 960 850 Output Total 3625 1890 70 Balance -2665 -1040 -70 Weight 69.7 kg Intake: IV 450 100 0.9% @ 50 200 0 Fluconazole in NaCl,Iso- 50 Osm 100 mg In Saline 1 50ml.bag @ 50 mls/hr IVPB DAILY [facility] Rx#:[id number] Meropenem 1 gm In Sodium 200 100 Chloride 0.9% 100 ml @ 33 .3 mls/hr IVPB Q8HR [facility] Rx#:[id number] Intake, IV Titration 250 Amount Vancomycin 1,000 mg In 250 Sodium Chloride 0.9% 250 ml @ 125 mls/hr IVPB Q12H [facility] Rx#:[id number] Oral 200 500 Blood Product 310 Rc As-1 Unit 310 [id number] Output: Urine 3625 1890 70 Other: Voiding Method Indwelling Catheter Indwelling Catheter # Bowel Movements 1 - Constitutional General appearance: Present: mild distress - EENT Eyes: Present: EOMI ENT: Present: hearing grossly normal, normal oropharynx - Respiratory Respiratory: left: rales - Cardiovascular Rhythm: regular Heart sounds: normal: S1, S2 - Gastrointestinal General gastrointestinal: Present: soft - Integumentary Integumentary: Present: normal - Neurologic Neurologic: Present: CNII-XII intact - Musculoskeletal Musculoskeletal: Present: generalized weakness, strength equal bilaterally - Psychiatric Psychiatric: Present: A&O x's 3, appropriate affect - Labs CBC & Chem 7: 09/05/22 05:19 09/05/22 05:19 Labs: Abnormal Lab Results - Last 24 Hours (Table) 09/04/22 09/04/22 09/05/22 Range/Units 06:53 18:23 05:19 RBC 2.62 L (3.80-5.40) m/uL Hgb 7.7 L (11.4-16.0) gm/dL Hct 23.7 L (34.0-46.0) % RDW 21.9 H (11.5-15.5) % Plt Count 59 L (150-450) k/uL Sodium 135 L (137-145) mmol/L Carbon Dioxide 36 H (22-30) mmol/L BUN 22 H (7-17) mg/dL Creatinine 0.34 L (0.52-1.04) mg/dL Glucose 139 H (74-99) mg/dL Calcium 8.2 L (8.4-10.2) mg/dL Crossmatch See Detail 09/05/22 Range/Units 05:19 RBC 2.68 L (3.80-5.40) m/uL Hgb 7.8 L (11.4-16.0) gm/dL Hct 24.3 L (34.0-46.0) % RDW 21.6 H (11.5-15.5) % Plt Count (150-450) k/uL Sodium (137-145) mmol/L Carbon Dioxide (22-30) mmol/L BUN (7-17) mg/dL Creatinine (0.52-1.04) mg/dL Glucose (74-99) mg/dL Calcium (8.4-10.2) mg/dL Crossmatch Microbiology - Last 24 Hours (Table) 09/04/22 09:47 Gram Stain - Preliminary Bronchial Washings - Left Bronchial Washings Culture - Preliminary 09/04/22 09:47 Fungal Culture - Preliminary Bronchial Washings - Left 09/04/22 09:47 Acid Fast Bacilli Culture - Preliminary Bronchial Washings - Left 09/01/22 10:00 Gram Stain - Final Sputum Sputum Culture - Final Bettina sp,not albicans/galbr Assessment and Plan (1) Anemia Narrative/Plan: Multifactorial, mainly due to anemia of acute/chronic blood loss, with some underlying mild myelodysplasia. In component is iron deficiency due to blood loss. - IV iron currently on hold due to concerns for intercurrent infection. Hemogl obin was less than 7 today due to which 1 unit PRBC was transfused - Continue to monitor, transfuse to keep hemoglobin greater than 7 - Start IV iron, once infection issues appear to be under control Current Visit: Yes Status: Acute Priority: High Code(s): D64.9 - ANEMIA, UNSPECIFIED SNOMED Code(s): 447117724 (2) Pneumonia Narrative/Plan: Patient is currently in the ICU. Status post bronchoscopy. The report reviewed. No obvious obstruction. Microbiology samples pending. The patient continues on antibiotics, and other supportive respiratory care per pulmonary medicine. Current Visit: Yes Status: Acute Code(s): J18.9 - PNEUMONIA, UNSPECIFIED ORGANISM SNOMED Code(s): 904024803
[2022-09-05 08:12] LABS: Band Neutrophils % 2 %; Metamyelocytes % 1 %; Neutrophils % (M) 90 %; Nucleated Red Blood Cells 7 /100 WBC (0-0); Total Cells Counted 200
[2022-09-05 08:13] LABS: Eosinophils # (M) 0.05 k/uL (0-0.7); Lymphocytes # (M) 0.16 k/uL (1.0-4.8); Metamyelocytes # (M) 0.05 k/uL (0); Monocytes # (M) 0.21 k/uL (0-1.0); Polychromasia Present; WBC 5.2 k/uL (3.8-10.6)
--- NOTE | 2022-09-05 08:15 | P.PN ---
Subjective Progress Note Date: 09/05/22 On today's evaluation of 08/30/2022, the patient still being treated for a multifocal pneumonia with extensive left upper lobe consolidation. The patient currently is on oxygen at 3 L/m nasal cannula. This is most likely a bacterial pneumonia. Pro-calcitonin level at time of admission was 28.5 and has not been checked since. The white cell count is low at 3.6, with a hemoglobin of 7.3. Noted the patient has been having episode of GI bleed and during this current hospitalization, she has received a total of 3 units of packed RBC. The patient has been having melanotic stools. We have GI surgeries on the case and were still waiting for that interventions and scoping. Meanwhile, I repeat chest x- ray was done and it shows still multilobar and mitral focal pneumonia most extensive in the left upper lobe in addition to the left lower lobe and the right lower lobe. The patient remains on Zosyn. Hemodynamically the patient is off no pressors. She is stable. IV fluids are running at the rate of 0.9 at the rate of 50 mL an hour. She is known to have advanced COPD with an FEV1 of 37% of predicted. She is an ex-smoker. She has chronic anemia and mild dysplasia. She has also chronic systolic heart failure with an ejection fraction of based on echocardiogram that was done during this current admission. This echocardiogram was done on 08/26/2022 and there is also evidence of mode rate degree of aortic insufficiency and moderate left ventricular hypertrophy. Her cardiac rhythm is currently sinus. It was thought that the patient was having episodes of itchy fibrillation. She was given IV heparin which obviously facilitated her GI bleeding.. Note that the patient has undergone previous EGD and colonoscopy on 08/21/2020. The patient was found to have mild chronic gastritis, H. pylori was negative, the patient also had benign squamous glandular mucosal changes in mild chronic esophagitis and was negative for metaplasia. 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 In terms of her lung involvement, the patient has been seen Dr. Ayala on outpatient basis for shortness of breath and the patient is known to have chronic nodular, interstitial areas and areas of consolidation.. A CAT scan of the chest that was done on 05/12/2022 showed waxing and waning patchy airspace opacities and nodular changes. Note that along with history of mild dysplasia, inflammatory processes/infectious processes has been considered. Note that the bronchoscopy was done by Dr. Ayala on 08/18/2022 and the cultures came back negative. Furthermore, transbronchial biopsy of the lung was done and it showed benign mucosa and alveolar tissue. No necrotizing granulomatous process or fungal elements identified. There was possibly some endogenous lipid pneumonia. Condition is obviously progressed. I reviewed the follow-up CAT scan of the chest showed multifocal changes with extensive worsening in the left upper lobe On today's evaluation of the 2022, the patient is being seen for a follow- up. The patient has an acute hypoxic respiratory failure with evidence of multifocal pneumonia. Exact etiology is not clear. The patient's condition is progressed. Previous bronchoscopy has not yielded any microbial growth. Previous transbronchial biopsies were also nondiagnostic. As such, I brought in the patient's antibiotic coverage. For now, she is on a combination of Zosyn and Levaquin and vancomycin. Her breathing is still labored and the patient is somewhat tachypneic. Pulse ox in the order of 89% on 6 L of oxygen by nasal cannula. White suppositive 3.5 at the patient has chronic pancytopenia with a hemoglobin of 7.8 and a platelet count of 5. A repeat chest x-ray done today showed multilobar patchy pulmonary infiltrates involving the left upper lobe, left lower lobe and the right lower lobe. There is also some cavitation developing in the right lower lobe on today's chest x-ray. Findings essentially the same without any significant change since yesterday. Note that the patient's pro-calcitonin level that was obtained yesterday was at 1.89 and this is up significantly from 28 and as such antibiotic coverage will be kept the same. As mentioned, there is no microbial growth obtained on this patient. The sputum was positive for yeast. In terms of hemodynamics, the patient is hemodynamically stable. She is currently on IV fluids at 50 mL an hour of serafin l saline. Her echocardiogram has shown chronic systolic heart failure and mild impairment of the left ventricle ejection fraction which was in order of 45%. The patient also has moderate degree of aortic regurgitation. She has advanced COPD and she has an FEV1 of 37% of predicted and she is an ex-smoker. On a separate note, there is no episodes of ongoing GI bleed. Hemoglobin is stable at 7.8. The patient underwent a EGD yesterday that showed mild gastritis and hiatal hernia. There was no evidence of an acute bleeding. Neurologically, she is alert and awake. She is tolerating her diet. No nausea. No emesis. No other significant events overnight. On 09/01/2022, the patient is being seen for a follow-up. Her condition is stable and she feels good today. He feels less short of breath compared to yesterday. His breathing is not labored. The patient is currently on 6 L of oxygen by nasal cannula. Repeat chest x-ray shows stable point bilateral pulmonary infiltrates. Nevertheless, the patient has a declining level of pro- calcitonin which has dropped down to 0.63 from a maximum level of 28.5. The patient is also covered with broad-spectrum antibiotics. She is on a com bination of Merrem, Levaquin and vancomycin. Unfortunately, no cultures are available. Nevertheless, I believe that this is a bacterial infection with elevated pro-calcitonin level and the rapidly evolving bilateral pulmonary infiltrates. As mentioned, previous arthroscopy was nondiagnostic. In terms of her hematologic profile, the patient could be relatively immunosuppressed. She has a myelodysplasia and her white cell count today's of 3.1 with a platelet count of 68 and a hemoglobin of 7.5. Hematology is on the case. Electrolytes show a potassium level III.2 that needs to be replaced and the sodium level is at 142, BUN is at 12 with a creatinine of 0.4. Vancomycin level is at 19.3. She is hemodynamically stable. Cardiac rhythm is sinus. Urine operas adequate. She is tolerating her diet. No altered mentation. She underwent a colonoscopy yesterday that showed mild diverticulosis, no evidence of any acute bleeding. Her EGD that was done earlier also showed no signs of any acute upper GI bleeding. She had some minimal gastritis and hiatal hernia. Her hemoglobin has remained stable. An echocardiogram on 08/26/2022 showed mild impairment of LV function with moderate degree of aortic insufficiency, left ventricle ejection fraction was 45%. 09/02/2022, the patient feels fatigued and tired. She is currently on 5 L of oxygen by nasal cannula and she is on a broad-spectrum antibiotic coverage including meropenem, Levaquin and vancomycin. Diflucan was also added as the patient had some oropharyngeal candidiasis. Repeat chest x-ray from today shows multifocal pulmonary infiltrates and no significant change compared to yesterday. However, there may be some limited improvement since her admission to the intensive care unit. The patient will be kept on broad-spectrum antibiotics for now. Small bowel follow-through was done and there is no evidence of any abnormalities or bleed at this point in time. Hemoglobin is at 7.3, slightly lower compared to yesterday. The patient did not have any bright red blood per rectum or melanotic stools. Platelet count is at 61, the whites echoes at 3.5, BUN is at 70 with a creatinine of 0.4. Vancomycin trough level is 23.5. She is afebrile. No other new complaints otherwise for now. She is receiving lactated Ringer at the rate of 20 mL an hour. She remains on her routine bronchodilators. She is also on IV Solu-Medrol and the dose has been modified to 40 mg every 12 hours. 09/03/2022, the patient remains on 5 L of oxygen by nasal cannula. She is stable. No interval worsening in her rest or status. A repeat chest x-ray was done that shows stable vital. Over pneumonia. I feel that the left upper lobe pulmonary infiltrates slightly improved. There is some early cavitation the right lower lobe. Meanwhile, the patient's hemodynamically stable. Earlier this morning, she developed some abdominal pain. She also has 2 episodes of diarrhea yesterday. Stool samples of them been collected. I think it's important to check her for C. diff especially the patient has been on broad- spectrum antibiotics. Sputum Gram stain and culture came back positive for Bettina and the patient is already on Diflucan. Her WBC count of 4.2 with a hemoglobin of 7.4 and a platelet count of 60. BUN is at 80 with a creatinine of 0.4 and a sodium level is at 139. Hemodynamically stable. No other significant events otherwise for now. She remains on IV Solu-Medrol. Antibiotic coverage is unchanged. 09/04/2022, the patient remains on oxygen at 5 L. I'm not seeing much of progress in terms of respiratory status. A CAT scan of the chest was done yesterday and it showed multifocal pulmonary infiltrates worse in the left upper lobe and background emphysema. Unfortunately, not much of an improvement in the pulmonary consolidation and air bronchograms and there is also infiltration in the lingula and the lower lobes bilaterally. The patient has been covered with broad-spectrum antibiotics. Subsequently, the patient developed diarrhea. C. diff colitis was suspected. The stool for C. diff came back negative. Meanwhile, a CAT scan of the abdomen was done and it showed some mild to moderate wall thickening of the left colon and the sigmoid colon, suggestive of an underlying colitis. The patient was taken off the Levaquin. The patient remains on a combination of meropenem, vancomycin, and Diflucan. She is suspected to have a low-grade GI bleed also. Her stool was liquid mineral 1. Hemoglobin dropped down to 6.8 and she is going to be receiving a unit of packed RBC. Note that she also has a low platelet of 57. She has mild dysplasia. White cell cause of 4.2. BUN is at 21 with a creatinine of 0.4. Sodium is at 138. A CAT scan of the brain was done yesterday due to the presence of unequal pupils and the CAT scan came back negative and the patient is awake and alert and moving all 4 extremities without any limitation. No significant abdominal pain. No nausea. I talked again about the possibility of another bronchoscopy, at least the bronchial alveolar lavage of the left upper lobe to see if there is any underlying opportunistic infections. She'll be kept on the same antibiotic coverage for now. She is on 5 L of oxygen by nasal cannula. She remains on IV Solu-Medrol. Cardiac rhythm is sinus. No pressors. Fluid balance has been in the order of +1 L. She'll be given a dose of Lasix also. IV fluids are running in the form of normal saline at rate of 25 mL an hour. She as a drop in her pro-calcitonin level from 28 down to 0.6. On 09/05/2022, the patient's condition is stable. I performed a bronchoscopy and lavage of the left upper lobe yesterday. Cultures are still pending for now. The patient did have some difficulties following the bronchoscopy, briefly placed on BiPAP and subsequently placed back on nasal cannula and currently she is down to 3 L. Awaiting a follow-up chest x-ray from today regarding her multilobar pneumonia. Remains on IV Merrem, vancomycin and Diflucan. Stopped the Levaquin. Also, the patient was having some limited colitis, antibiotic induced and the diarrhea has subsided. Stool for C. diff has been negative. No abdominal pain at this point in time. Breathing is quite stable today. I'm continuing the same antibiotic coverage and she is also on steroids. IV fluids are currently running at 25 mL an hour. Her pro calcitonin level has been declining. She was as high as 28 and she dropped down to 0.6. Her white second of 5.6 with a hemoglobin of 7.8. Platelet count from today is still pending. Sodium is at 135, BUN is at 22 with a creatinine of 0.34. Unfortunately, due to her prolonged hospitalization, the patient is getting progressively more debilitated and weak. Oral intake is quite suboptimal at this point in time. She does have some oropharyngeal candidiasis, no significant dysphagia and the patient is on Diflucan. Note that the patient was also in a positive fluid balance. She was given a dose of Lasix yesterday with excellent urine output. She put up more than 2 L of urine output following the Lasix. The same will be done today. Awaiting a follow-up chest x-ray from today. She is taking Glucerna shakes. Objective - Vital Signs Vital signs: Vital Signs Temp 98.6 F 09/05/22 04:00 Pulse 110 H 09/05/22 07:00 Resp 13 09/05/22 07:00 BP 123/70 09/05/22 07:00 Pulse Ox 93 L 09/05/22 07:00 FiO2 100 09/04/22 16:00 Intake & Output 09/04/22 09/05/22 09/05/22 18:59 06:59 18:59 Intake Total 960 850 Output Total 3625 1890 70 Balance -2665 -1040 -70 Weight 69.7 kg Intake: IV 450 100 0.9% @ 50 200 0 Fluconazole in NaCl,Iso- 50 Osm 100 mg In Saline 1 50ml.bag @ 50 mls/hr IVPB DAILY [facility] Rx#:[id number] Meropenem 1 gm In Sodium 200 100 Chloride 0.9% 100 ml @ 33 .3 mls/hr IVPB Q8HR [facility] Rx#:[id number] Intake, IV Titration 250 Amount Vancomycin 1,000 mg In 250 Sodium Chloride 0.9% 250 ml @ 125 mls/hr IVPB Q12H [facility] Rx#:[id number] Oral 200 500 Blood Product 310 Rc As-1 Unit 310 [id number] Output: Urine 7377 8910 70 Other: Voiding Method Indwelling Catheter Indwelling Catheter # Bowel Movements 1 - Exam GENERAL EXAM: Alert, pale, weak 62-year-old female, on 3 L nasal cannula, comfortable in no apparent distress. HEAD: Normocephalic. EYES: Normal reaction of pupils, equal size. NOSE: Clear with pink turbinates. THROAT: No erythema or exudates. NECK: No masses, no JVD. CHEST: No chest wall deformity. LUNGS: Equal air entry with bilateral scattered rhonchi, end expiratory wheeze, diminished. CVS: S1 and S2 normal with no audible murmur, regular rhythm. ABDOMEN: No hepatosplenomegaly, normal bowel sounds, no guarding or rigidity. SPINE: No scoliosis or deformity SKIN: No rashes CENTRAL NERVOUS SYSTEM: No focal deficits, tone is normal in all 4 extremities. EXTREMITIES: There is no peripheral edema. No clubbing, no cyanosis. Peripheral pulses are intact. - Labs CBC & Chem 7: 09/05/22 05:19 09/05/22 05:19 Labs: Abnormal Lab Results - Last 24 Hours (Table) 09/04/22 09/04/22 09/05/22 Range/Units 06:53 18:23 05:19 RBC 2.62 L (3.80-5.40) m/uL Hgb 7.7 L (11.4-16.0) gm/dL Hct 23.7 L (34.0-46.0) % RDW 21.9 H (11.5-15.5) % Plt Count 59 L (150-450) k/uL Sodium 135 L (137-145) mmol/L Carbon Dioxide 36 H (22-30) mmol/L BUN 22 H (7-17) mg/dL Creatinine 0.34 L (0.52-1.04) mg/dL Glucose 139 H (74-99) mg/dL Calcium 8.2 L (8.4-10.2) mg/dL Crossmatch See Detail 09/05/22 Range/Units 05:19 RBC 2.68 L (3.80-5.40) m/uL Hgb 7.8 L (11.4-16.0) gm/dL Hct 24.3 L (34.0-46.0) % RDW 21.6 H (11.5-15.5) % Plt Count (150-450) k/uL Sodium (137-145) mmol/L Carbon Dioxide (22-30) mmol/L BUN (7-17) mg/dL Creatinine (0.52-1.04) mg/dL Glucose (74-99) mg/dL Calcium (8.4-10.2) mg/dL Crossmatch Microbiology - Last 24 Hours (Table) 09/04/22 09:47 Gram Stain - Preliminary Bronchial Washings - Left Bronchial Washings Culture - Preliminary 09/04/22 09:47 Fungal Culture - Preliminary Bronchial Washings - Left 09/04/22 09:47 Acid Fast Bacilli Culture - Preliminary Bronchial Washings - Left 09/01/22 10:00 Gram Stain - Final Sputum Sputum Culture - Final Bettina sp,not albicans/galbr Assessment and Plan Plan: Multilobar Pneumonia, sepsis. Chest x-ray on arrival showed a new left upper lobe masslike pneumonic consolidation with the chronic parenchymal changes that were seen on previous examinations in bilateral lower lobes. A follow up Chest CTA also redemonstrated the multifocal airspace disease with background moderate centrilobular emphysema. Chest x-ray 08/28/2022 shows worsening bilateral pneumonia. The patient underwent a bronchoscopy on 08/18/[address] Ayala, and the findings of essentially nonspecific. Obviously, this is a completely nondiagnostic bronchoscopy with negative cultures and benign tissue on the t ransbronchial biopsies in the right lower lobe. The patient's pro-calcitonin level has been dropping and the patient is currently on broad-spectrum antibiotics. Chest x-ray still showing multifocal pneumonia with some early cavitation of the right lower lobe. Note that the pro calcitonin level is also showing a further drop and most recent level is down to 0.63. Is also showed Bettina and I think this is a oropharyngeal colonization/infection. Based on that, Diflucan was also added to regimen and she is currently on broad-spectrum antibiotics. Chest x-ray from the 2022 shows stable multifocal pulmonary infiltrates. The patient remains on oxygen at 5 L. Breathing is nonlabored at this point in time. After the pro calcitonin level has been improving and is currently down to 0.6. The patient was further weaned down to 3 L nasal cannula. The patient was taken off the Levaquin. The patient is currently on Merrem vancomycin and Diflucan. A repeat bronchoscopy was done yesterday. Acute hypoxic respiratory failure, currently off the BiPAP on 3 L of oxygen by nasal cannula Acute diarrhea/abdominal pain. Rule out C. diff colitis. This could be an antibiotic-induced diarrhea/abdominal pain further investigation with a CAT scan of the abdomen was ordered by the general surgeon. The CAT scan of the abdomen was consistent with some mild colitis. Acute COPD exacerbation secondary to above. Patient does have baseline severe emphysema with an FEV1 that is 37% of predicted. Acute on chronic hypoxic respiratory failure normally maintained on 2 L home O2. Patient is improved and currently on 3 L of O2 nasal cannula Acute GI bleed and has received 3 units of packed red blood cells this admission thus far. Tagged RBC scan revealed no evidence of active GI bleeding, previous EGD and colonoscopy showed some mild gastritis, esophagitis, colonic and rectal polyps in the form of tubular adenoma. the colonoscopy showed some mild diverticulosis. No active bleeding at this point in time and the patient is on no anticoagulants. A repeat EGD was done yesterday and the findings were essentially negative for any acute bleeding. lobe is stable for now. A small bowel follow-through was done that was within normal limits and hemoglobin is currently at 7.8, along with a component of colitis as noted on the CAT scan of the abdomen Left-sided colitis/sigmoid colitis, probably antibiotic induced Diarrhea secondary to above New-onset atrial fibrillation with rapid ventricular rate. Currently in normal sinus rhythm Mild systolic heart failure with ejection fraction 45% in addition to moderate aortic insufficiency and concentric LVH Myelodysplastic syndrome, the patient has pancytopenia Chronic iron deficiency anemia with history of iron transfusions. There is a left adrenal nodule that was found on chest CTA which could represent benign lipid rich adrenal adenoma, however Bettina in the sputum, likely an upper airway colonization especially the patient has been on on multiple antibiotics and steroids. Ex-smoker Plan: Bilobar pneumonia and ongoing pulmonary infiltrates and respiratory failure is still an active issue for this patient The patient has been weaned down to 3 L of O2 nasal cannula A repeat bronchoscopy and lavage of the left upper lobe was done yesterday, awaiting cultures Patient is on broad-spectrum antibiotics The patient developed some limited colitis, antibiotic induced in the stool for C. diff has been negative Check stool for C. diff and this was done yesterday and the C. diff was negative CAT scan of the abdomen with by mouth contrast Is consistent with colitis, probably antibiotic induced. CAT scan of the chest showing persistent consolidation Continue combination of merrem , vancomycin and Diflucan Continue Solu-Medrol to 40 mg every 12 hours Titrate oxygen flow to maintain a saturation above 90%, currently on 3 L Suspect a superimposed bacterial infections pressure was elevated pro-calcitonin level, and the pro calcitonin level is essentially improving Responded very nicely to the Lasix. We'll give another dose of 40 mg of Lasix IV push Continue to monitor hemoglobin Continue COPD treatment Titrate the FiO2 as tolerated Prognosis is guarded We'll continue to follow Awaiting follow-up chest x-ray from today Critical care evaluation that was done in more than 30 minutes Time with Patient: Greater than 30
[2022-09-05] MEDS ORDERED: FUROSEMIDE 10 MG/ML 4 ML VIAL IV STA (09:11)
[2022-09-05] MEDS: methylPREDNISolone SOD SUCCI 40 MG/ML 1 ML VIAL IV SCH ×2 (09:30→20:29)
[2022-09-05] MEDS: PANTOPRAZOLE 40 MG/10 ML VIAL IVP SCH ×2 (09:30→20:29)
[2022-09-05] MEDS: FLUCONAZOLE IN NACL,ISO-OSM 100 MG in SALINE 1 50ML.BAG IVPB SCH (09:30)
[2022-09-05] MEDS: METOPROLOL TARTRATE 25 MG TAB PO SCH ×2 (09:31→20:10)
[2022-09-05] MEDS: ALPRAZolam 0.25 MG TAB PO PRN ×3 (09:31→23:05)
[2022-09-05] MEDS: FORMOTEROL FUMARATE 20 MCG/2 ML NEBU INHALATION SCH ×2 (09:55→20:26)
[2022-09-05] MEDS: IPRATROPIUM-ALBUTEROL 3 ML NEB INHALATION SCH ×4 (09:55→20:26)
[2022-09-05] MEDS: BUDESONIDE 1 MG/2 ML NEBU INHALATION SCH ×2 (09:56→20:26)
--- NOTE | 2022-09-05 10:11 | XR ---
EXAMINATION TYPE: XR chest 1V portable DATE OF EXAM: 09/05/2022 CLINICAL HISTORY: Difficulty breathing and pneumonia progress study. TECHNIQUE: Single AP portable upright view of the chest is obtained. COMPARISON: Chest x-ray from one day earlier and older studies. FINDINGS: Background chronic emphysematous and parenchymal fibrotic change with bilateral lower lung and left upper lung increased opacities is redemonstrated. No pneumothorax is seen after bronchoscop y. Small bilateral pleural effusions on CT less well seen on x-ray. Stable mild cardiomegaly. Osseous structures are intact. IMPRESSION: Mild cardiomegaly and chronic parenchymal changes with bilateral lower lung and left uppe r lung acute infiltrates and/or edema redemonstrated. No significant change from one day earlier.
--- NOTE | 2022-09-05 13:39 | P.PN ---
Subjective Progress Note Date: 09/05/22 62 year old female with MDS, GI bleed, COPD on 2 L oxygen at home presenting with dyspnea, palpitations, productive cough with occasional hemoptysis, chest pain. Patient was recently hospitalized for pneumonia as well as acute anemia, had a bronchoscopy at that time, patient was eventually discharged on oral antibiotics and prednisone taper. Since presenting to the ED this time, patient has been hypoxic, tachypneic, tachycardic requiring BiPAP for increased work of breathing. Patient was evaluated by pulmonology. Patient was started on IV antibiotics, steroids and bronchodilators for pneumonia as well as COPD exacerbation. CTA chest showed no PE, multifocal airspace disease with moderate emphysema, worsening left upper lobe, also incidental left adrenal nodule. On 08/26, patient had an episode of hypertension and unresponsiveness. Patient was then transferred to the medical ICU. Echocardiogram report reviewed: Mildly impaired LV function with EF 45%, moderate AI. She is now having bloody bowel movements. She is status post 3 units of PRBCs. Surgery was consulted. Tagged RBC scan did not show any active GI bleeding. EGD was done 08/30 which was negative for bleed. C-scope was done on 08/31 which showed mild diverticulosis. Small bowel follow-through was also negative for GI bleed. Her hemoglobin has remained stable until 09/04 when her hemoglobin dropped to 6.8. She also und erwent bronchoscopy with more cultures collected on 09/04. Patient was seen and examined. No acute events overnight. Patient reports slight improvement in her breathing. She is on 4L NC saturating high 80s. Her baseline is 2L NC at home. General: Tired appearing, no distress, appears older than stated age Derm: warm, dry Head: atraumatic, normocephalic, symmetric Eyes: EOMI, no lid lag, anicteric sclera Mouth: no lip lesion, mucus membranes moist Cardiovascular: S1S2 reg, no murmur Lungs: CTA bilateral, no rhonchi, no rales , no accessory muscle use, nasal cannula 4 L Abdominal: soft, nontender to palpation, no guarding, no appreciable organomegaly Ext: no gross muscle atrophy, no edema, no contractures Neuro: no focal neuro deficits Psych: Alert and oriented x 3 #Acute GI bleed, blood loss anemia #Antibiotic induced colitis #Acute on chronic hypoxic respiratory failure #Septic secondary to left upper lobe pneumonia #Acute COPD exacerbation #History of MDS #Left adrenal nodule, incidental finding Resolved: Sinus tachycardia Based on my assessment of this patient, this patient meets a moderate complexity level of care. I have reviewed the following national sales consultant notes: Pulmonology note 09/05, continue Solumedrol 40 mg IV BID, continue vancomycin/meropenem/diflucan, follow up on cultures from BAL I have reviewed the results of the following tests: CBC shows hemoglobin of 7.8 and platelet count of 56. BMP shows sodium of 135, bicarb of 36, BUN of 22 and creatinine of 0.34, glucose of 139 and calcium 8.2. I have ordered the following tests: CBC and BMP ordered tomorrow morning. I have discussed the care of this patient with the following independent historian: None. I have independently interpreted the following test below: Chest x-ray shows multifocal infiltrates essentially unchanged from yesterday's chest x-ray. I have discussed the management of this patient with the following physician: None. This patient has a moderate risk of morbidity due to the following reasons: Patient has a history of COPD on 2L home O2 with severe exacerbation or progression of disease which poses a threat to life or bodily function. She is currently being treated for pneumonia with Vancomycin 1000 mg IV every 12 hours which is nephrotoxic and requires daily monitoring of her renal function. Continued on Meropenem 1g IV every 8 hours and Diflucan 100 mg IV daily. Levaquin is discontinued. Cultures from BAL is pending. Her hemoglobin has improved after transfusion. Her colitis is likely antibiotic induced which we will continue to monitor on current antibiotic regimen. Objective - Vital Signs Vital signs: Vital Signs Temp 97.9 F 09/05/22 08:00 Pulse 100 09/05/22 13:25 Resp 20 09/05/22 11:00 BP 119/57 09/05/22 11:00 Pulse Ox 91 L 09/05/22 11:00 FiO2 100 09/04/22 16:00 Intake & Output 09/04/22 09/05/22 09/05/22 18:59 06:59 18:59 Intake Total 960 850 525 Output Total 9818 0683 6875 Balance -0850 -4367 -1220 Weight 69.7 kg Intake: IV 450 100 125 0.9% @ 50 200 0 125 Fluconazole in NaCl,Iso- 50 Osm 100 mg In Saline 1 50ml.bag @ 50 mls/hr IVPB DAILY [facility] Rx#:[id number] Meropenem 1 gm In Sodium 200 100 Chloride 0.9% 100 ml @ 33 .3 mls/hr IVPB Q8HR [facility] Rx#:[id number] Intake, IV Titration 250 Amount Vancomycin 1,000 mg In 250 Sodium Chloride 0.9% 250 ml @ 125 mls/hr IVPB Q12H [facility] Rx#:[id number] Oral 200 500 400 Blood Product 310 Rc As-1 Unit 310 [id number] Output: Urine 3624 7490 1745 Other: Voiding Method Indwelling Catheter Indwelling Catheter Indwelling Catheter # Bowel Movements 1 - Labs CBC & Chem 7: 09/05/22 05:19 09/05/22 05:19 Labs: Abnormal Lab Results - Last 24 Hours (Table) 09/04/22 09/05/22 09/05/22 Range/Units 18:23 05:19 05:19 RBC 2.62 L 2.68 L (3.80-5.40) m/uL Hgb 7.7 L 7.8 L (11.4-16.0) gm/dL Hct 23.7 L 24.3 L (34.0-46.0) % RDW 21.9 H 21.6 H (11.5-15.5) % Plt Count 59 L 56 L (150-450) k/uL Lymphocytes # (Manual) 0.16 L (1.0-4.8) k/uL Metamyelocytes # (Man) 0.05 H (0) k/uL Nucleated RBCs 7 H (0-0) /100 WBC Sodium 135 L (137-145) mmol/L Carbon Dioxide 36 H (22-30) mmol/L BUN 22 H (7-17) mg/dL Creatinine 0.34 L (0.52-1.04) mg/dL Glucose 139 H (74-99) mg/dL Calcium 8.2 L (8.4-10.2) mg/dL Microbiology - Last 24 Hours (Table) 09/04/22 09:47 Gram Stain - Preliminary Bronchial Washings - Left Bronchial Washings Culture - Preliminary 09/04/22 09:47 Fungal Culture - Preliminary Bronchial Washings - Left 09/04/22 09:47 Acid Fast Bacilli Culture - Preliminary Bronchial Washings - Left 09/01/22 10:00 Gram Stain - Final Sputum Sputum Culture - Final Bettina sp,not albicans/galbr
[2022-09-05 21:40] LABS: Anisocytosis Moderate; Hypochromasia Slight; MCH 30.7 pg (25.0-35.0); MCHC 33.5 g/dL (31.0-37.0); MCV 91.8 fL (80.0-100.0); Macrocytosis Slight; Mean Platelet Volume 18.6; Poikilocytosis Moderate; RBC 1.68 m/uL (3.80-5.40); RDW 23.4 % (11.5-15.5)
[2022-09-05 21:48] LABS: HCT 15.4 % (34.0-46.0); HGB 5.2 gm/dL (11.4-16.0)
[2022-09-05 21:49] LABS: Platelet Count 54 k/uL (150-450)
[2022-09-05 22:08] LABS: Band Neutrophils % 13 %; Eosinophils # (M) 0.05 k/uL (0-0.7); Lymphocytes # (M) 0.51 k/uL (1.0-4.8); Neutrophils % (M) 75 %; Nucleated Red Blood Cells 23 /100 WBC (0-0); Total Cells Counted 200; WBC 4.6 k/uL (3.8-10.6)
[2022-09-05 22:09] LABS: Anisocytosis (M) Present; Ovalocytes Present; Poikilocytosis (M) Present; Polychromasia Present
--- NOTE | 2022-09-06 00:03 | P.EN ---
notified by RN ,of an episode of melena , follow up CBC showed acute drop in Hgb down to 5.2, patient will be given 2 units of blood patient had episodes oF GI bleeding during this hospital course, GI and gen surgery service following, patient underwent , Cscope, EGD, small bowel follow through and tagged RBC test, all failed to show any source of active bleeding . hgb remained relatively stable 7.7 after 2 units blood transfusion during this hospital stay , patient also has MDS. with low platelets 50-60 and leukopenia . however due to this new episode of melena and acute drop in Hgb to 5.2, patient will be transfused another 2 units of blood , no GI service over the weekend, however, we will have GI service in the morning . patient vital signs showing tachycardia , and borderline low normal blood pressure with MAP >65. Gen surg process environmental technician was notified , and no recommendations made for acute intervention, however, suggested transfer if needed bed coordinator contacted to look for an accepting facility tonight if possible
[2022-09-06] MEDS: HYDROmorphone 0.5 MG/0.5 ML SYRINGE IVP PRN ×4 (02:39→16:40)
[2022-09-06 03:11] LABS: Anisocytosis Slight; MCH 29.5 pg (25.0-35.0); MCHC 34.2 g/dL (31.0-37.0); Mean Platelet Volume 16.3; Poikilocytosis Slight; RBC 2.79 m/uL (3.80-5.40)
[2022-09-06 03:14] LABS: HGB 8.2 gm/dL (11.4-16.0); MCV 86.1 fL (80.0-100.0); Platelet Count 48 k/uL (150-450)
[2022-09-06 03:27] LABS: African American GFR (CKD) >90 (>60 ml/min/1.73 sqM); Anion Gap -2 mmol/L; Blood Urea Nitrogen 38 mg/dL (7-17); Calcium 7.8 mg/dL (8.4-10.2); Carbon Dioxide 36 mmol/L (22-30); Chloride 101 mmol/L (98-107); Glucose 135 mg/dL (74-99); Non-African American GFR(CKD) >90 (>60 ml/min/1.73 sqM); Partial Thromboplastin Time 18.2 sec (22.0-30.0); Potassium 4.4 mmol/L (3.5-5.1); Sodium 135 mmol/L (137-145)
[2022-09-06 03:40] LABS: Band Neutrophils % 11 %; Lymphocytes # (M) 0.31 k/uL (1.0-4.8); Metamyelocytes # (M) 0.16 k/uL (0); Metamyelocytes % 3 %; Neutrophils % (M) 76 %; Nucleated Red Blood Cells 17 /100 WBC (0-0); Total Cells Counted 200; WBC 5.2 k/uL (3.8-10.6)
[2022-09-06 03:41] LABS: Anisocytosis (M) Present; Ovalocytes Present; Poikilocytosis (M) Present; Polychromasia Present
[2022-09-06] MEDS: VANCOMYCIN 1,000 MG in SODIUM CHLORIDE 0.9% 250 ML IVPB SCH ×2 (05:22→19:05)
[2022-09-06] MEDS: FORMOTEROL FUMARATE 20 MCG/2 ML NEBU INHALATION SCH ×2 (08:10→19:43)
[2022-09-06] MEDS: IPRATROPIUM-ALBUTEROL 3 ML NEB INHALATION SCH ×4 (08:10→19:43)
[2022-09-06] MEDS: BUDESONIDE 1 MG/2 ML NEBU INHALATION SCH ×2 (08:10→19:43)
[2022-09-06] MEDS: methylPREDNISolone SOD SUCCI 40 MG/ML 1 ML VIAL IV SCH ×2 (08:34→21:03)
[2022-09-06] MEDS: METOPROLOL TARTRATE 25 MG TAB PO SCH ×2 (08:34→20:00)
[2022-09-06] MEDS: FLUCONAZOLE IN NACL,ISO-OSM 100 MG in SALINE 1 50ML.BAG IVPB SCH (08:34)
[2022-09-06] MEDS: MEROPENEM 1 GM in SODIUM CHLORIDE 0.9% 100 ML IVPB SCH ×3 (08:34→23:23)
[2022-09-06] MEDS: PANTOPRAZOLE 40 MG/10 ML VIAL IVP SCH ×2 (08:34→21:03)
[2022-09-06 09:00] LABS: Anisocytosis Moderate; HCT 20.6 % (34.0-46.0); HGB 7.1 gm/dL (11.4-16.0); MCH 29.7 pg (25.0-35.0); MCHC 34.3 g/dL (31.0-37.0); MCV 86.6 fL (80.0-100.0); Poikilocytosis Moderate; RBC 2.37 m/uL (3.80-5.40); RDW 20.2 % (11.5-15.5); WBC 7.8 k/uL (3.8-10.6)
[2022-09-06 09:53] LABS: Platelet Count 54 k/uL (150-450)
[2022-09-06] MEDS: SODIUM CHLORIDE 0.9% 1,000 ML IV SCH (10:18)
--- NOTE | 2022-09-06 11:28 | P.PN ---
Subjective Progress Note Date: 09/06/22 CHIEF COMPLAINT: GI bleed HISTORY OF PRESENT ILLNESS: Surgical service has been reconsulted in regards to GI bleed. Patient remains in the ICU. Patient had recurrent bleeding yesterday evening. She had 4 dark maroon stools. She's had 2 large maroon stools this morning. Her hemoglobin did drop from 7.8 to 5.2 last night. She did get 2 units of blood. Repeat hemoglobin is 8.2. Hemoglobin from this morning is back down to 7.1. Patient continues to complain of left lower quadrant pain that radiates across the lower abdomen. Patient has been seen by GI service. They've ordered a tagged RBC scan. Afebrile. Mildly tachycardic. Hypotensive. WBC is 7.8 Hgb 7.1 platelets 54 sodium 135 potassium 4.4 creatinine 0.35 She is status post colonoscopy which revealed mild diverticulosis. There was a small 3-4 mm polyp in the transverse colon. Small hemorrhoids with no evidence of bleeding. No blood throughout the colon. EGD had shown mild gastritis and hiatal hernia. Small bowel follow-through with no evidence of GI bleed. PHYSICAL EXAM: VITAL SIGNS: Reviewed. GENERAL: Well-developed in no acute distress. ABDOMEN: Soft. Nondistended. Tenderness with palpation left lower quadrant NEUROLOGIC: Alert and oriented. Cranial nerves II through XII grossly intact. ASSESSMENT: 1. Acute GI bleed with dark maroon stools 2. Acute on chronic blood loss anemia 3. Prior history of diverticular bleed 4. History of myelodysplastic syndrome 5. Pneumonia PLAN: -Follow up on tagged RBC scan -Continue to monitor hemoglobin and transfuse as needed -keep patient NPO -Continue supportive care -Continue IV fluids -Continue PPI Physician Leasing Coordinator note has been reviewed by physician. Signing provider agrees with the documented findings, assessment, and plan of care. I have personally seen and examined the patient, reviewed the PERSONNEL TECHNICIAN /PAs history, exam and MDM and agree with the assessment and plan as written. Based on total visit time, I have performed more than 50% of the visit. As above: Patient with recurrent bleeding. She is currently going to get a tagged red blood cell scan. Await those findings. Objective - Vital Signs Vital signs: Vital Signs Temp 97.9 F 09/06/22 08:00 Pulse 107 H 09/06/22 08:41 Resp 25 H 09/06/22 07:30 BP 108/53 09/06/22 08:00 Pulse Ox 88 L 09/06/22 08:13 FiO2 100 09/04/22 16:00 Intake & Output 09/05/22 09/06/22 09/06/22 18:59 06:59 18:59 Intake Total 699 1989 195 Output Total 2655 1605 240 Balance -1955 384 -45 Weight 72 kg Intake: IV 299 765 195 0.9% @ 50 200 165 45 Fluconazole in NaCl,Iso- 50 Osm 100 mg In Saline 1 50ml.bag @ 50 mls/hr IVPB DAILY [facility] Rx#:[id number] Meropenem 1 gm In Sodium 99 100 100 Chloride 0.9% 100 ml @ 33 .3 mls/hr IVPB Q8HR [facility] Rx#:[id number] Vancomycin 1,000 mg In 500 Sodium Chloride 0.9% 250 ml @ 125 mls/hr IVPB Q12H [facility] Rx#:[id number] Oral 400 Blood Product 1224 Rc As-1 Unit 310 [id number] Rc As-1 Unit 310 [id number] Output: Urine 2655 855 240 Stool 750 Other: Voiding Method Indwelling Catheter Indwelling Catheter # Bowel Movements 1 - Labs CBC & Chem 7: 09/06/22 08:41 09/06/22 02:57 Labs: Abnormal Lab Results - Last 24 Hours (Table) 09/04/22 09/05/22 09/06/22 Range/Units 06:53 21:25 02:57 RBC 1.68 L (3.80-5.40) m/uL Hgb 5.2 L* D (11.4-16.0) gm/dL Hct 15.4 L* (34.0-46.0) % RDW 23.4 H (11.5-15.5) % Plt Count 54 L (150-450) k/uL Lymphocytes # (Manual) 0.51 L (1.0-4.8) k/uL Metamyelocytes # (Man) (0) k/uL Nucleated RBCs 23 H (0-0) /100 WBC APTT (22.0-30.0) sec Sodium 135 L (137-145) mmol/L Carbon Dioxide 36 H (22-30) mmol/L BUN 38 H (7-17) mg/dL Creatinine 0.35 L (0.52-1.04) mg/dL Glucose 135 H (74-99) mg/dL Calcium 7.8 L (8.4-10.2) mg/dL Crossmatch See Detail 09/06/22 09/06/22 09/06/22 Range/Units 02:57 02:57 08:41 RBC 2.79 L 2.37 L (3.80-5.40) m/uL Hgb 8.2 L D 7.1 L (11.4-16.0) gm/dL Hct 24.0 L 20.6 L (34.0-46.0) % RDW 19.0 H 20.2 H (11.5-15.5) % Plt Count 48 L 54 L (150-450) k/uL Lymphocytes # (Manual) 0.31 L (1.0-4.8) k/uL Metamyelocytes # (Man) 0.16 H (0) k/uL Nucleated RBCs 17 H (0-0) /100 WBC APTT 18.2 L (22.0-30.0) sec Sodium (137-145) mmol/L Carbon Dioxide (22-30) mmol/L BUN (7-17) mg/dL Creatinine (0.52-1.04) mg/dL Glucose (74-99) mg/dL Calcium (8.4-10.2) mg/dL Crossmatch Microbiology - Last 24 Hours (Table) 09/04/22 09:47 Gram Stain - Preliminary Bronchial Washings - Left Bronchial Washings Culture - Preliminary
[2022-09-06] MEDS: ALPRAZolam 0.25 MG TAB PO PRN ×2 (11:51→22:47)
--- NOTE | 2022-09-06 12:44 | P.CONS ---
History of Present Illness - Reason for Consult Consult date: 09/06/22 GI bleed Requesting physician: Jon Gallagher - Chief Complaint Shortness of breath and weakness - History of Present Illness This is a pleasant 62-year-old female with a past medical history of COPD, alcohol abuse, iron deficiency anemia with history of iron transfusions, and MDS who presented to the emergency department on 08/25/2022 for complaints of shortness of breath, weakness and recent fall. Patient was admitted for bilateral lobe pneumonia, dyspnea and thought to have episode of atrial fibrillation who was started on a heparin drip. Following the heparin drip the patient started having maroon-colored bowel movements. The heparin drip was discontinued and general surgery was consulted. She states she's been having dark stool at home but she is on oral iron, she states no maroon-colored stools at home or clots. She is reporting left lower and mid abdominal pain, which she rates a 7 out of 10 and states it is sharp in nature. She does have nausea with no vomiting. Patient's nurse reported that she had 4 large maroon colored bowel movements yesterday evening and one large one this morning with clots. Patient was recently hospitalized in July of this year and was anemic with a positive occult stool. Patient underwent EGD and colonoscopy on 07/19/[address] Love. EGD with findings of hiatal hernia, probably grade B erosive e sophagitis, with no active bleeding or old blood noted. Colonoscopy with findings of sigmoid diverticulosis, internal and external grade 3 hemorrhoids, and transverse colon adenoma unable to be retrieved. During this hospitalization patient underwent EGD and 08/30/[address] Peralta with findings of minimal gastritis and hiatal hernia. Colonoscopy was then performed on 08/31/[address] Peralta with findings of mild diverticulosis. On 09/02/2022 patient underwent a small bowel follow-through that reported delayed transit through the bowel, no masses noted. 09/03/2022 patient had a CAT scan of chest abdomen and pelvis without contrast which stated moderate subcutaneous edema with small bilateral pleural effusions and mild peritoneal ascites consistent with presumed desire fluid overload state. Moderate underlying emphysematous this change with persistent peripheral infiltrate in the right lung similar to most recent CT. There are new areas of consolidation with air bronchograms throughout the left upper and lower lobes and lingula. Mild to moderate wall thickening in the left and sigmoid colon could reflect product of uncomplicated colitis versus poor distention. Correlate clinically. No bowel obstruction. Patient also underwent bronchoscopy on 09/04/2022, cultures cur rently pending. Patient currently on vancomycin and meropenem. She is on IV Solu-Medrol, oxygen saturation 88% on 3 L, increased to 5 L with improvement up to 94%. Patient did have a negative C. diff on 09/03/2022 She has received a total of 6 units of blood during this admission. Morning labs WBC 5.2 hemoglobin 8.2 hematocrit 24 platelet count 48,000 range at 1.0 fibrinogen 361 sodium 135 potassium 4.4 BUN 38 creatinine 0.35 glucose 135. Review of Systems REVIEW OF SYSTEMS: CARDIOPULMONARY: No chest pain, positive shortness of breath. Gastrointestinal: Left mid and lower quadrant abdominal pain. Nausea with no emesis. No hematemesis, coffee-ground emesis. Melena with clots. GENITOURINARY: No dysuria or hematuria. MUSCULOSKELETAL: Reports normal range of motion. SKIN: No rashes. No jaundice. ENDOCRINE: No chills, fevers. No excessive weight gain or loss. No polydipsia or polyuria. PSYCHIATRIC: Unremarkable. NEUROLOGY: No change in mental status. Denies dizziness, headache. ENT: Vision unremarkable. CONSTITUTIONAL: No recent weight loss. No fever, chills, night sweats. Past Medical History Past Medical History: Blood Disorder, COPD, Pneumonia Additional Past Medical History / Comment(s): Myelodysplastic syndrome ., Neutropenia., macrocytosis., iron deficiency anemia- hx iron transfusions., emphysema., hospitalized at [facility] 07/16 to 07/27/22 - egd & colonoscopy done showing erosive esophagitis, hiatal hernia, diverticulitis, hemorrhoids, colon polyp., bronchoscopy 07/21/22 ., pneumonia, she received 3 blood transfusions., oxygen at 2L. History of Any Multi-Drug Resistant Organisms: None Reported Past Surgical History: No Surgical Hx Reported Additional Past Surgical History / Comment(s): TEETH PULLED, COLONOSCOPY, EGD, BRONCHOSCOPY Past Anesthesia/Blood Transfusion Reactions: No Reported Reaction Additional Past Anesthesia/Blood Transfusion Reaction / Comm: unknown family hx- pt is adopted, no children Past Psychological History: Anxiety Smoking Status: Former smoker Past Alcohol Use History: None Reported Past Drug Use History: Marijuana - Past Family History Father History Unknown: Yes Additional Family Medical History / Comment(s): unknown, adopted at Mother History Unknown: Yes Additional Family Medical History / Comment(s): unknown, adopted at Medications and Allergies Home Medications Medication Instructions Recorded Confirmed Type ALPRAZolam [Xanax] 0.25 mg PO BID 07/16/22 08/25/22 History Ascorbic Acid [Vitamin C] 500 mg PO DAILY 07/16/22 08/25/22 History Cyanocobalamin (Vitamin B-12) 5,000 mcg PO DAILY 07/16/22 08/25/22 History [Vitamin B-12] Pantoprazole [Protonix] 40 mg PO AC-BID #60 tab 07/26/22 08/25/22 Rx Albuterol Inhaler [Ventolin Hfa 1 - 2 puff INHALATION Q6H PRN 08/16/22 08/25/22 History Inhaler] Albuterol Nebulized [Ventolin 2.5 mg INHALATION RT-QID 08/16/22 08/25/22 History Nebulized] Folic Acid 1 mg PO DAILY 08/16/22 08/25/22 History Ferrous Sulfate [Slow Fe] 142 mg PO DAILY 08/25/22 08/25/22 History Tiotropium [place] [Spiriva] 1 puff IH RT-DAILY 08/25/22 08/25/22 History predniSONE See Taper PO DAILY 08/25/22 08/25/22 History Allergies Allergy/AdvReac Type Severity Reaction Status Date / Time ferumoxytol Allergy Severe Rash/Hives Verified 08/25/22 15:57 Physical Exam Vitals: Vital Signs Temp Pulse Resp BP Pulse Ox 09/06/22 08:41 107 H 09/06/22 08:33 111 H 09/06/22 08:32 111 H 09/06/22 08:13 88 L 09/06/22 08:10 109 H 09/06/22 08:00 97.9 F 108 H 108/53 92 L 09/06/22 07:30 108 H 25 H 123/64 91 L 09/06/22 07:00 112 H 13 117/65 94 L 09/06/22 06:30 92 13 113/65 93 L 09/06/22 06:00 92 14 110/56 95 04/03/23 05:30 93 19 125/69 93 L 09/06/22 05:00 89 13 118/56 94 L 09/06/22 04:30 91 12 127/70 94 L 09/06/22 04:00 98 F 89 18 126/70 94 L 09/06/22 03:30 87 12 122/71 95 09/06/22 03:00 90 12 124/64 93 L 09/06/22 02:30 103 H 44 H 136/83 91 L 09/06/22 02:00 96 17 110/60 93 L 09/06/22 01:30 93 16 114/62 93 L 09/06/22 01:00 93 18 120/64 92 L 09/06/22 00:58 98.5 F 96 18 107/57 94 L 09/06/22 00:30 98 17 122/62 92 L 09/06/22 00:04 98.3 F 98 18 105/63 97 09/06/22 00:00 98.5 F 96 16 109/60 96 09/05/22 23:44 98.2 F 113 H 20 109/60 97 09/05/22 23:34 99 F 114 H 18 108/62 95 09/05/22 23:31 99.0 F 116 H 16 108/62 96 09/05/22 23:30 114 H 15 112/64 96 09/05/22 23:05 98.8 F 121 H 24 97/62 94 L 09/05/22 23:04 118 H 17 97/62 95 09/05/22 23:00 120 H 21 109/72 95 09/05/22 22:45 98 F 105 H 36 H 109/72 94 L 09/05/22 22:35 97.8 F 107 H 32 H 109/55 94 L 09/05/22 22:30 110 H 29 H 123/65 94 L 09/05/22 22:00 121 H 19 98/46 95 09/05/22 21:30 101 H 15 110/71 84 L 09/05/22 21:00 123 H 17 125/54 85 L 09/05/22 20:30 108 H 19 99/52 93 L 09/05/22 20:00 98.1 F 101 H 16 91/52 93 L 09/05/22 19:30 101 H 17 91/52 94 L 09/05/22 19:00 98 13 97/43 94 L 09/05/22 18:00 96 12 101/55 92 L 09/05/22 17:00 107 H 19 98/61 88 L 09/05/22 16:36 110 H 09/05/22 16:24 108 H 09/05/22 16:00 98.4 F 114 H 10 L 94/56 94 L 09/05/22 15:00 114 H 15 116/66 92 L 09/05/22 14:00 95 16 118/78 91 L 09/05/22 13:25 100 09/05/22 13:11 101 H 09/05/22 13:00 90 15 123/70 93 L 09/05/22 12:00 88 16 108/58 92 L 09/05/22 11:00 106 H 20 119/57 91 L 09/05/22 10:18 96 09/05/22 10:06 98 09/05/22 10:00 92 13 124/65 98 09/05/22 09:56 99 09/05/22 09:00 113 H 14 113/54 92 L Intake and Output 09/05/22 09/06/22 09/06/22 22:59 06:59 14:59 Intake Total 404 1709 35 Output Total 1125 890 190 Balance -721 819 -155 Intake: IV 404 485 35 0.9% @ 50 55 135 35 Meropenem 1 gm In Sodium 99 100 Chloride 0.9% 100 ml @ 33 .3 mls/hr IVPB Q8HR [facility] Rx#:[id number] Vancomycin 1,000 mg In 250 250 Sodium Chloride 0.9% 250 ml @ 125 mls/hr IVPB Q12H [facility] Rx#:[id number] Blood Product 0 1224 Rc As-1 Unit 310 [id number] Rc As-1 Unit 0 310 [id number] Output: Urine 625 640 190 Stool 500 250 Other: Voiding Method Indwelling Catheter Indwelling Catheter # Bowel Movements 1 1 Weight 72 kg General appearance: The patient is alert, oriented, appears in no acute distress. HET: Head is normocephalic and atraumatic. Conjunctiva pink. Sclera anicteric. Neck: Supple without lymphadenopathy. Trachea midline. Heart: S1 S2. Regular rate and rhythm. Lungs: Equal expansion. Bilateral wheezes. Abdomen: Soft, left mid and lower quadrant tenderness, nondistended with bowel sounds. No guarding or rigidity. Skin: No rashes. No jaundice. Extremities: Normal skin color and turgor. No pedal edema. Neurological: No focal deficits. Alert and oriented x3. Results CBC & Chem 7: 09/06/22 08:41 09/06/22 02:57 Labs: Abnormal Lab Results - Last 24 Hours (Table) 09/04/22 09/05/22 09/06/22 Range/Units 06:53 21:25 02:57 RBC 1.68 L (3.80-5.40) m/uL Hgb 5.2 L* D (11.4-16.0) gm/dL Hct 15.4 L* (34.0-46.0) % RDW 23.4 H (11.5-15.5) % Plt Count 54 L (150-450) k/uL Lymphocytes # (Manual) 0.51 L (1.0-4.8) k/uL Metamyelocytes # (Man) (0) k/uL Nucleated RBCs 23 H (0-0) /100 WBC APTT (22.0-30.0) sec Sodium 135 L (137-145) mmol/L Carbon Dioxide 36 H (22-30) mmol/L BUN 38 H (7-17) mg/dL Creatinine 0.35 L (0.52-1.04) mg/dL Glucose 135 H (74-99) mg/dL Calcium 7.8 L (8.4-10.2) mg/dL Crossmatch See Detail 09/06/22 09/06/22 Range/Units 02:57 02:57 RBC 2.79 L (3.80-5.40) m/uL Hgb 8.2 L D (11.4-16.0) gm/dL Hct 24.0 L (34.0-46.0) % RDW 19.0 H (11.5-15.5) % Plt Count 48 L (150-450) k/uL Lymphocytes # (Manual) 0.31 L (1.0-4.8) k/uL Metamyelocytes # (Man) 0.16 H (0) k/uL Nucleated RBCs 17 H (0-0) /100 WBC APTT 18.2 L (22.0-30.0) sec Sodium (137-145) mmol/L Carbon Dioxide (22-30) mmol/L BUN (7-17) mg/dL Creatinine (0.52-1.04) mg/dL Glucose (74-99) mg/dL Calcium (8.4-10.2) mg/dL Crossmatch Microbiology - Last 24 Hours (Table) 09/04/22 09:47 Gram Stain - Preliminary Bronchial Washings - Left Bronchial Washings Culture - Preliminary Assessment and Plan (1) GI bleed Narrative/Plan: 62-year-old female who presented to the emergency department greater than a week ago with complaints of shortness of breath weakness and fall. Patient also with diarrhea, nonbloody prior to admission. She was admitted with bilateral lobe pneumonia and started on IV antibiotics. She has a long-standing history of anemia, she has MDS and follows with hematology. She gets IV transfusions in the past and currently on oral iron. During this hospitalization she was treated with IV heparin for atrial fibrillation, following anticoagulation she had complaints of GI bleed. She underwent EGD and colonoscopy with Dr. Peralta with any evidence of old blood or active bleeding noted. Colonoscopy did show mild diverticulosis. She also underwent a tagged RBC on 08/28/2021 without any evidence of active bleed. She continues to have left lower abdominal pain with multiple maroon colored stools between yesterday and today. Unclear etiology of bleeding, possible etiologies include diverticular bleed, possible AVM. Recommend tagged RBC, transfuse 1 unit of blood. Tagged RBC completed showing uptake in the right lower quadrant correlate for GI bleed. This was discussed with Dr. Lipscomb, general surgeon Dr. Peralta notified as well. Consider possible small bowel capsule endoscopy. We'll await further recommendations from general surgery. Current Visit: Yes Status: Acute Priority: High Code(s): K92.2 - GASTROINTESTINAL HEMORRHAGE, UNSPECIFIED SNOMED Code(s): 98049377 (2) Diarrhea Narrative/Plan: Negative C. diff Current Visit: Yes Status: Acute Code(s): R19.7 - DIARRHEA, UNSPECIFIED SNOMED Code(s): 58271289 (3) Anemia Current Visit: Yes Status: Acute Priority: High Code(s): D64.9 - ANEMIA, UNSPECIFIED SNOMED Code(s): 211302989 (4) Pneumonia Current Visit: Yes Status: Acute Code(s): J18.9 - PNEUMONIA, UNSPECIFIED ORGANISM SNOMED Code(s): 316433758 (5) MDS (myelodysplastic syndrome), low grade Current Visit: Yes Status: Chronic Priority: High Code(s): D46.20 - REFRACTORY ANEMIA WITH EXCESS OF BLASTS, UNSPECIFIED SNOMED Code(s): 422810348 (6) COPD exacerbation Current Visit: No Status: Acute Code(s): J44.1 - CHRONIC OBSTRUCTIVE PULMONARY DISEASE W (ACUTE) EXACERBATION SNOMED Code(s): 277556555 Plan: 1. Continue symptomatic and supportive care 2. Tagged RBC ordered stat however not completed until this afternoon. Report with uptake in the right lower quadrant, consider GI bleed. Consider possible small bowel capsule endoscopy, we'll await further recommendations from general surgery. 3. Keep nothing by mouth 4. Transfuse 1 unit of blood 5. CBC every 6 hours, transfuse for hemoglobin less than 7 6. Hold any anticoagulation 7. Protonix 40 mg twice a day for GI prophylaxis 8. Continue with recommendations from general surgery 9. Further recommendations forthcoming based on clinical course Thank you for this consultation, we will continue to follow. Dr. Geoffrey Lipscomb I agree with the dictator's note, documented as a scribe by Nora De La O.
--- NOTE | 2022-09-06 12:50 | P.CONS ---
History of Present Illness - Reason for Consult Consult date: 09/06/22 Goals of care Requesting physician: Xochilt Hart - History of Present Illness The patient is a 62-year-old female with MDS, chronic iron deficiency anemia, GI bleed, systolic heart failure, and advanced COPD on 2 L oxygen at home. She presented to emergency department on 09/03/22 with dyspnea, palpitations, productive cough with occasional hemoptysis, chest pain. Patient was recently hospitalized for pneumonia as well as acute anemia, had a bronchoscopy at that time, patient was eventually discharged on oral antibiotics and prednisone taper. Since presenting to the ED this time, patient has been hypoxic, tachypneic, tachycardic requiring BiPAP for increased work of breathing. Patient was evaluated by pulmonology. Patient was started on IV antibiotics, steroids and bronchodilators for pneumonia as well as COPD exacerbation. CTA chest showed no PE, multifocal airspace disease with moderate emphysema, worsening left upper lobe, also incidental left adrenal nodule. On 08/26, jose roberto ent had an episode of hypertension and unresponsiveness. Patient was then transferred to the medical ICU. Echocardiogram report reviewed: Mildly impaired LV function with EF 45%, moderate AI. She is now having bloody bowel movements. She is status post 3 units of PRBCs. Surgery was consulted. Tagged RBC scan did not show any active GI bleeding. EGD was done 08/30 which was negative for bleed. C-scope was done on 08/31 which showed mild diverticulosis. Small bowel follow-through was also negative for GI bleed. Her hemoglobin has remained stable until 09/04 when her hemoglobin dropped to 6.8. She also underwent bronchoscopy with more cultures collected on 09/04. 09/05 The patient began having bloody bowel movements and her Hgb dropped to 5.2. She received another 2 units of PRBCs which brought her hemoglobin up to 8.2. The surgical service was reconsulted. 09/06 The patient had another large bloody bowel movement and her Hgb dropped to 7.1. She has been seen by GI service. They've ordered another tagged RBC scan. Review of Systems Constitutional: Reports as per HPI Past Medical History Past Medical History: Blood Disorder, COPD, Pneumonia Additional Past Medical History / Comment(s): Myelodysplastic syndrome ., Neutropenia., macrocytosis., iron deficiency anemia- hx iron transfusions., emphysema., hospitalized at [facility] 07/16 to 07/27/22 - egd & colonoscopy done showing erosive esophagitis, hiatal hernia, diverticulitis, hemorrhoids, colon polyp., bronchoscopy 07/21/22 ., pneumonia, she received 3 blood transfusions., oxygen at 2L. History of Any Multi-Drug Resistant Organisms: None Reported Past Surgical History: No Surgical Hx Reported Additional Past Surgical History / Comment(s): TEETH PULLED, COLONOSCOPY, EGD, BRONCHOSCOPY Past Anesthesia/Blood Transfusion Reactions: No Reported Reaction Additional Past Anesthesia/Blood Transfusion Reaction / Comm: unknown family hx- pt is adopted, no children Past Psychological History: Anxiety Smoking Status: Former smoker Past Alcohol Use History: None Reported Past Drug Use History: Marijuana - Past Family History Father History Unknown: Yes Additional Family Medical History / Comment(s): unknown, adopted at Mother History Unknown: Yes Additional Family Medical History / Comment(s): unknown, adopted at Medications and Allergies Home Medications Medication Instructions Recorded Confirmed Type ALPRAZolam [Xanax] 0.25 mg PO BID 07/16/22 08/25/22 History Ascorbic Acid [Vitamin C] 500 mg PO DAILY 07/16/22 08/25/22 History Cyanocobalamin (Vitamin B-12) 5,000 mcg PO DAILY 07/16/22 08/25/22 History [Vitamin B-12] Pantoprazole [Protonix] 40 mg PO AC-BID #60 tab 07/26/22 08/25/22 Rx Albuterol Inhaler [Ventolin Hfa 1 - 2 puff INHALATION Q6H PRN 08/16/22 08/25/22 History Inhaler] Albuterol Nebulized [Ventolin 2.5 mg INHALATION RT-QID 08/16/22 08/25/22 History Nebulized] Folic Acid 1 mg PO DAILY 08/16/22 08/25/22 History Ferrous Sulfate [Slow Fe] 142 mg PO DAILY 08/25/22 08/25/22 History Tiotropium [place] [Spiriva] 1 puff IH RT-DAILY 08/25/22 08/25/22 History predniSONE See Taper PO DAILY 08/25/22 08/25/22 History Allergies Allergy/AdvReac Type Severity Reaction Status Date / Time ferumoxytol Allergy Severe Rash/Hives Verified 08/25/22 15:57 Physical Exam Vitals: Vital Signs Temp Pulse Resp BP Pulse Ox 09/06/22 11:41 97.3 F L 101 H 20 107/60 97 09/06/22 11:31 97.9 F 103 H 20 94/54 94 L 09/06/22 11:00 105 H 28 H 94/58 94 L 09/06/22 10:30 123 H 20 94/58 94 L 09/06/22 10:00 123 H 15 94/58 94 L 09/06/22 09:30 106 H 13 93 L 09/06/22 09:00 105 H 11 L 99/62 94 L 09/06/22 08:41 107 H 09/06/22 08:33 111 H 09/06/22 08:32 111 H 09/06/22 08:30 107 H 32 H 115/72 100 09/06/22 08:13 88 L 09/06/22 08:10 109 H 09/06/22 08:00 97.9 F 108 H 108/53 94 L 09/06/22 07:30 108 H 25 H 123/64 91 L 09/06/22 07:00 112 H 13 117/65 94 L 09/06/22 06:30 92 13 113/65 93 L 09/06/22 06:00 92 14 110/56 95 09/06/22 05:30 93 19 125/69 93 L 09/06/22 05:00 89 13 118/56 94 L 09/06/22 04:30 91 12 127/70 94 L 09/06/22 04:00 98 F 89 18 126/70 94 L 09/06/22 03:30 87 12 122/71 95 09/06/22 03:00 90 12 124/64 93 L 09/06/22 02:30 103 H 44 H 136/83 91 L 09/06/22 02:00 96 17 110/60 93 L 09/06/22 01:30 93 16 114/62 93 L 09/06/22 01:00 93 18 120/64 92 L 09/06/22 00:58 98.5 F 96 18 107/57 94 L 09/06/22 00:30 98 17 122/62 92 L 09/06/22 00:04 98.3 F 98 18 105/63 97 09/06/22 00:00 98.5 F 96 16 109/60 96 09/05/22 23:44 98.2 F 113 H 20 109/60 97 09/05/22 23:34 99 F 114 H 18 108/62 95 09/05/22 23:31 99.0 F 116 H 16 108/62 96 09/05/22 23:30 114 H 15 112/64 96 09/05/22 23:05 98.8 F 121 H 24 97/62 94 L 09/05/22 23:04 118 H 17 97/62 95 09/05/22 23:00 120 H 21 109/72 95 09/05/22 22:45 98 F 105 H 36 H 109/72 94 L 09/05/22 22:35 97.8 F 107 H 32 H 109/55 94 L 09/05/22 22:30 110 H 29 H 123/65 94 L 09/05/22 22:00 121 H 19 98/46 95 09/05/22 21:30 101 H 15 110/71 84 L 09/05/22 21:00 123 H 17 125/54 85 L 09/05/22 20:30 108 H 19 99/52 93 L 09/05/22 20:00 98.1 F 101 H 16 91/52 93 L 09/05/22 19:30 101 H 17 91/52 94 L 09/05/22 19:00 98 13 97/43 94 L 09/05/22 18:00 96 12 101/55 92 L 09/05/22 17:00 107 H 19 98/61 88 L 09/05/22 16:36 110 H 09/05/22 16:24 108 H 09/05/22 16:00 98.4 F 114 H 10 L 94/56 94 L 09/05/22 15:00 114 H 15 116/66 92 L 09/05/22 14:00 95 16 118/78 91 L 09/05/22 13:25 100 09/05/22 13:11 101 H 09/05/22 13:00 90 15 123/70 93 L 09/05/22 12:00 88 16 108/58 92 L Intake and Output 09/05/22 09/06/22 09/06/22 22:59 06:59 14:59 Intake Total 404 1709 285 Output Total 1125 890 440 Balance -721 819 -155 Intake: IV 404 485 215 0.9% @ 50 55 135 65 Fluconazole in NaCl,Iso- 50 Osm 100 mg In Saline 1 50ml.bag @ 50 mls/hr IVPB DAILY [facility] Rx#:[id number] Meropenem 1 gm In Sodium 99 100 100 Chloride 0.9% 100 ml @ 33 .3 mls/hr IVPB Q8HR [facility] Rx#:[id number] Vancomycin 1,000 mg In 250 250 Sodium Chloride 0.9% 250 ml @ 125 mls/hr IVPB Q12H [facility] Rx#:[id number] Tube Feeding 70 Blood Product 0 1224 0 Rc As-1 Unit 0 [id number] Rc As-1 Unit 310 [id number] Rc As-1 Unit 0 310 [id number] Output: Urine 625 640 340 Stool 500 250 100 Other: Voiding Method Indwelling Catheter Indwelling Catheter Indwelling Catheter # Bowel Movements 1 1 Weight 72 kg General: Well developed, well nourished. No acute distress. Appears older than stated age HEENT: Head is atraumatic, normocephalic. Scleredema, Mucus membranes moist. CV: Heart regular in rate and rhythm positive S1 and S2. Lungs: Tachypneic and respirations slightly nonlabored. On 5L NC. Abdomen/GI: Soft, obese. LLQ tenderness to palpitation : Ziegler catheter in place draining clear, yellow urine Musculoskeletal/ Extremities: No contractures or gross atrophy. + generalized weakness Skin: Pale, warm, and dry Neurologic: Awake, alert and oriented times 3. CN II-XII grossly intact. No focal deficits. Results CBC & Chem 7: 09/06/22 08:41 09/06/22 02:57 Labs: Abnormal Lab Results - Last 24 Hours (Table) 09/04/22 09/05/22 09/06/22 Range/Units 06:53 21:25 02:57 RBC 1.68 L (3.80-5.40) m/uL Hgb 5.2 L* D (11.4-16.0) gm/dL Hct 15.4 L* (34.0-46.0) % RDW 23.4 H (11.5-15.5) % Plt Count 54 L (150-450) k/uL Lymphocytes # (Manual) 0.51 L (1.0-4.8) k/uL Metamyelocytes # (Man) (0) k/uL Nucleated RBCs 23 H (0-0) /100 WBC APTT (22.0-30.0) sec Sodium 135 L (137-145) mmol/L Carbon Dioxide 36 H (22-30) mmol/L BUN 38 H (7-17) mg/dL Creatinine 0.35 L (0.52-1.04) mg/dL Glucose 135 H (74-99) mg/dL Calcium 7.8 L (8.4-10.2) mg/dL Crossmatch See Detail 09/06/22 09/06/22 09/06/22 Range/Units 02:57 02:57 08:41 RBC 2.79 L 2.37 L (3.80-5.40) m/uL Hgb 8.2 L D 7.1 L (11.4-16.0) gm/dL Hct 24.0 L 20.6 L (34.0-46.0) % RDW 19.0 H 20.2 H (11.5-15.5) % Plt Count 48 L 54 L (150-450) k/uL Lymphocytes # (Manual) 0.31 L (1.0-4.8) k/uL Metamyelocytes # (Man) 0.16 H (0) k/uL Nucleated RBCs 17 H (0-0) /100 WBC APTT 18.2 L (22.0-30.0) sec Sodium (137-145) mmol/L Carbon Dioxide (22-30) mmol/L BUN (7-17) mg/dL Creatinine (0.52-1.04) mg/dL Glucose (74-99) mg/dL Calcium (8.4-10.2) mg/dL Crossmatch Microbiology - Last 24 Hours (Table) 09/04/22 09:47 Gram Stain - Preliminary Bronchial Washings - Left Bronchial Washings Culture - Preliminary Yeast species Chest x-ray: report reviewed CT scan - abdomen: report reviewed CT scan - chest: report reviewed CT Scan - head: report reviewed CT scan - pelvis: report reviewed Assessment and Plan Assessment: Social * Occupation - unemployed, on disability * Marital status - * Children/grandchildren - [place] * Residence - House * Who do you reside with - Lives alone * ETOH - No * Tobacco - Quit in 01/2021 * Illicit drugs - No Spiritual/Cultural * A spiritual person - Yes * Episcopal - Oriental Orthodox * Belong to a particular adventist - No * Beliefs a source of comfort and strength - Yes * Gnosticism or cultural practices restrictions - No * EOL considerations/rituals - Would like last rights before dying 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 She has groceries delivered and uses meals on wheels * Who manages medications - Patient * Who manages finances - Patient Psychological/Emotional * Dementia present -No * Insight and judgment - Intact * Depression - Occasional * Suicidal thoughts - No * Good support system - "No support system" * Patients goals - prolonged survival, optimize functionality, or comfort - "They are all my goals" * Frequent hospitalizations - Yes * Desire to keep coming back to the hospital for treatment - Yes Symptoms * Pain - 0/10 Tylenol and Dilaudid prn, patient states abdominal pain is well controlled * Fatigue - Yes, debility and weakness * SOB - yes, on 5L NC. Continue pulmicort, perforomist, duoneb, Lasix, Merrem, solumedrol, and vanco. * Insomnia - No * N/V - No * Anxiety - Yes, Xanax prn * Depression - Occasional * Confusion - No * Agitation - yes "right now" * Hallucinations - No * Appetite/weight loss - Currently NPO, has had decreased oral intake. No recent weight loss. * Dysphagia - No * Constipation - No, has had several bloody stools * Incontinence - No * Itch - No * Cough - Occasional * Thrush - On Diflucan Plan: Summary/Goals - The patient is receiving a unit of blood and will then go down for her tagged RBC scan. Explained to the patient palliative care philosophies and services. Informed her that I am a support person that works with people with chronic illnesses. I work along side of her medical team to help determine her goals of care and can assist with symptom management. Attempted to educate her on her advanced COPD, heart failure, and pneumonia. She stated she already knows all this information. She was informed that we have seen a limited improvement in her respiratory status since being in the ICU. Provided education on her pneumonia and chronic conditions along with the treatments involved. She stated she would rather than be put on the BiPAP machine again. We discussed code status in detail. She wants to remain a full code at this time. We discussed BiPAP versus ventilator. She stated she would rather be put on the ventilator than wear the BiPAP. She wants to live and would like to continue with aggressive treatment. She is willing to have surgery or be transferred to another facility if need be. She was very agitated during our conversation and she seemed overwhelmed. Emotional support was provided. She stated she wanted to be done with our conversation for the day. She stated she did not understand the purpose of my visit after it was explained several times. The decision was made that she would not benefit from further discussion today. Will attempt to re-visit the patient tomorrow. Advanced Directives - none on file Code Status - Full code Thank you for this consultation Cyndi Suero [facility]- Palliative Care Spectralink [id number] Email: [email or web address]
[2022-09-06 13:07] VITALS: BMI 29.0
--- NOTE | 2022-09-06 13:17 | P.PN ---
Subjective Progress Note Date: 09/06/22 Principal diagnosis: Recurrent multilobar pneumonia and acute on chronic hypoxic respiratory failure On today's evaluation of 08/30/2022, the patient still being treated for a mul tifocal pneumonia with extensive left upper lobe consolidation. The patient currently is on oxygen at 3 L/m nasal cannula. This is most likely a bacterial pneumonia. Pro-calcitonin level at time of admission was 28.5 and has not been checked since. The white cell count is low at 3.6, with a hemoglobin of 7.3. Noted the patient has been having episode of GI bleed and during this current hospitalization, she has received a total of 3 units of packed RBC. The patient has been having melanotic stools. We have GI surgeries on the case and were still waiting for that interventions and scoping. Meanwhile, I repeat chest x- ray was done and it shows still multilobar and mitral focal pneumonia most extensive in the left upper lobe in addition to the left lower lobe and the right lower lobe. The patient remains on Zosyn. Hemodynamically the patient is off no pressors. She is stable. IV fluids are running at the rate of 0.9 at the rate of 50 mL an hour. She is known to have advanced COPD with an FEV1 of 37% of predicted. She is an ex-smoker. She has chronic anemia and mild dysplas ia. She has also chronic systolic heart failure with an ejection fraction of based on echocardiogram that was done during this current admission. This echocardiogram was done on 08/26/2022 and there is also evidence of moderate degree of aortic insufficiency and moderate left ventricular hypertrophy. Her cardiac rhythm is currently sinus. It was thought that the patient was having episodes of itchy fibrillation. She was given IV heparin which obviously facilitated her GI bleeding.. Note that the patient has undergone previous EGD and colonoscopy on 08/21/2020. The patient was found to have mild chronic gastritis, H. pylori was negative, the patient also had benign squamous glandular mucosal changes in mild chronic esophagitis and was negative for metaplasia. 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 In terms of her lung involvement, the patient has been seen Dr. Ayala on outpatient basis for shortness of breath and the patient is known to have chronic nodular, interstitial areas and areas of consolidation.. A CAT scan of the chest that was done on 05/12/2022 showed waxing and waning patchy airspace opacities and nodular changes. Note that along with history of mild dysplasia, inflammatory processes/infectious processes has been considered. Note that the bronchoscopy was done by Dr. Ayala on 08/18/2022 and the cultures came back negative. Furthermore, transbronchial biopsy of the lung was done and it showed benign mucosa and alveolar tissue. No necrotizing granulomatous process or fungal elements identified. There was possibly some endogenous lipid pneumonia. Condition is obviously progressed. I reviewed the follow-up CAT scan of the chest showed multifocal changes with extensive worsening in the left upper lobe On today's evaluation of the 2022, the patient is being seen for a follow- up. The patient has an acute hypoxic respiratory failure with evidence of multifocal pneumonia. Exact etiology is not clear. The patient's condition is progressed. Previous bronchoscopy has not yielded any microbial growth. Previous transbronchial biopsies were also nondiagnostic. As such, I brought in the patient's antibiotic coverage. For now, she is on a combination of Zosyn and Levaquin and vancomycin. Her breathing is still labored and the patient is somewhat tachypneic. Pulse ox in the order of 89% on 6 L of oxygen by nasal cannula. White suppositive 3.5 at the patient has chronic pancytopenia with a hemoglobin of 7.8 and a platelet count of 5. A repeat chest x-ray done today showed multilobar patchy pulmonary infiltrates involving the left upper lobe, left lower lobe and the right lower lobe. There is also some cavitation developing in the right lower lobe on today's chest x-ray. Findings essentially the same without any significant change since yesterday. Note that the patient's pro-calcitonin level that was obtained yesterday was at 1.89 and this is up significantly from 28 and as such antibiotic coverage will be kept the same. As mentioned, there is no microbial growth obtained on this patient. The sputum was positive for yeast. In terms of hemodynamics, the patient is hemodynamically stable. She is currently on IV fluids at 50 mL an hour of normal saline. Her echocardiogram has shown chronic systolic heart failure and mild impairment of the left ventricle ejection fraction which was in order of 45%. The patient also has moderate degree of aortic regurgitation. She has advanced COPD and she has an FEV1 of 37% of predicted and she is an ex-smoker. On a separate note, there is no episodes of ongoing GI bleed. Hemoglobin is stable at 7.8. The patient underwent a EGD yesterday that showed mild gastritis and hiatal hernia. There was no evidence of an acute bleeding. Neurologically, she is alert and awake. She is tolerating her diet. No nausea. No emesis. No other significant events overnight. On 09/01/2022, the patient is being seen for a follow-up. Her condition is stable and she feels good today. He feels less short of breath compared to yesterday. His breathing is not labored. The patient is currently on 6 L of oxygen by nasal cannula. Repeat chest x-ray shows stable point bilateral pulm onary infiltrates. Nevertheless, the patient has a declining level of pro- calcitonin which has dropped down to 0.63 from a maximum level of 28.5. The patient is also covered with broad-spectrum antibiotics. She is on a combination of Merrem, Levaquin and vancomycin. Unfortunately, no cultures are available. Nevertheless, I believe that this is a bacterial infection with elevated pro-calcitonin level and the rapidly evolving bilateral pulmonary infiltrates. As mentioned, previous arthroscopy was nondiagnostic. In terms of her hematologic profile, the patient could be relatively immunosuppressed. She has a myelodysplasia and her white cell count today's of 3.1 with a platelet count of 68 and a hemoglobin of 7.5. Hematology is on the case. Electrolytes show a potassium level III.2 that needs to be replaced and the sodium level is at 142, BUN is at 12 with a creatinine of 0.4. Vancomycin level is at 19.3. She is hemodynamically stable. Cardiac rhythm is sinus. Urine operas adequate. She is tolerating her diet. No altered mentation. She underwent a colonoscopy yesterday that showed mild diverticulosis, no evidence of any acute bleeding. Her EGD that was done earlier also showed no signs of any acute upper GI bleeding. She had some minimal gastritis and hiatal hernia. Her hemoglobin has remained stable. An echocardiogram on 08/26/2022 showed mild impairment of LV function with moderate degree of aortic insufficiency, left ventricle ejection fraction was 45%. 09/02/2022, the patient feels fatigued and tired. She is currently on 5 L of oxygen by nasal cannula and she is on a broad-spectrum antibiotic coverage including meropenem, Levaquin and vancomycin. Diflucan was also added as the patient had some oropharyngeal candidiasis. Repeat chest x-ray from today shows multifocal pulmonary infiltrates and no significant change compared to yesterday. However, there may be some limited improvement since her admission to the intensive care unit. The patient will be kept on broad-spectrum antibiotics for now. Small bowel follow-through was done and there is no evidence of any abnormalities or bleed at this point in time. Hemoglobin is at 7.3, slightly lower compared to yesterday. The patient did not have any bright red blood per rectum or melanotic stools. Platelet count is at 61, the whites echoes at 3.5, BUN is at 70 with a creatinine of 0.4. Vancomycin trough level is 23.5. She is afebrile. No other new complaints otherwise for now. She is receiving lactated Ringer at the rate of 20 mL an hour. She remains on her routine bronchodilators. She is also on IV Solu-Medrol and the dose has been modified to 40 mg every 12 hours. 09/03/2022, the patient remains on 5 L of oxygen by nasal cannula. She is stable. No interval worsening in her rest or status. A repeat chest x-ray was done that shows stable vital. Over pneumonia. I feel that the left upper lobe pulmonary infiltrates slightly improved. There is some early cavitation the right lower lobe. Meanwhile, the patient's hemodynamically stable. Earlier this morning, she developed some abdominal pain. She also has 2 episodes of diarrhea yesterday. Stool samples of them been collected. I think it's important to check her for C. diff especially the patient has been on broad- spectrum antibiotics. Sputum Gram stain and culture came back positive for Bettina and the patient is already on Diflucan. Her WBC count of 4.2 with a hemoglobin of 7.4 and a platelet count of 60. BUN is at 80 with a creatinine of 0.4 and a sodium level is at 139. Hemodynamically stable. No other significant events otherwise for now. She remains on IV Solu-Medrol. Antibiotic coverage is unchanged. 09/04/2022, the patient remains on oxygen at 5 L. I'm not seeing much of progress in terms of respiratory status. A CAT scan of the chest was done yesterday and it showed multifocal pulmonary infiltrates worse in the left upper lobe and background emphysema. Unfortunately, not much of an improvement in the pulmonary consolidation and air bronchograms and there is also infiltration in the lingula and the lower lobes bilaterally. The patient has been covered with broad-spectrum antibiotics. Subsequently, the patient developed diarrhea. C. diff colitis was suspected. The stool for C. diff came back negative. Meanwhile, a CAT scan of the abdomen was done and it showed some mild to moderate wall thickening of the left colon and the sigmoid colon, suggestive of an underlying colitis. The patient was taken off the Levaquin. The patient remains on a combination of meropenem, vancomycin, and Diflucan. She is suspected to have a low-grade GI bleed also. Her stool was liquid mineral 1. Hemoglobin dropped down to 6.8 and she is going to be receiving a unit of packed RBC. Note that she also has a low platelet of 57. She has mild dysplasia. White cell cause of 4.2. BUN is at 21 with a creatinine of 0.4. Sodium is at 138. A CAT scan of the brain was done yesterday due to the presence of unequal pupils and the CAT scan came back negative and the patient is awake and alert and moving all 4 extremities without any limitation. No significant abdominal pain. No nausea. I talked again about the possibility of another bronchoscopy, at least the bronchial alveolar lavage of the left upper lobe to see if there is any underlying opportunistic infections. She'll be kept on the same antibiotic coverage for now. She is on 5 L of oxygen by nasal cannula. She remains on IV Solu-Medrol. Cardiac rhythm is sinus. No pressors. Fluid balance has been in the order of +1 L. She'll be given a dose of Lasix also. IV fluids are running in the form of normal saline at rate of 25 mL an hour. She as a drop in her pro-calcitonin level from 28 down to 0.6. On 09/05/2022, the patient's condition is stable. I performed a bronchoscopy and lavage of the left upper lobe yesterday. Cultures are still pending for now. The patient did have some difficulties following the bronchoscopy, briefly placed on BiPAP and subsequently placed back on nasal cannula and currently she is down to 3 L. Awaiting a follow-up chest x-ray from today regarding her multilobar pneumonia. Remains on IV Merrem, vancomycin and Diflucan. Stopped the Levaquin. Also, the patient was having some limited colitis, antibiotic induced and the diarrhea has subsided. Stool for C. diff has been negative. No abdominal pain at this point in time. Breathing is quite stable today. I'm continuing the same antibiotic coverage and she is also on steroids. IV fluids are currently running at 25 mL an hour. Her pro calcitonin level has been declining. She was as high as 28 and she dropped down to 0.6. Her white second of 5.6 with a hemoglobin of 7.8. Platelet count from today is still pending. Sodium is at 135, BUN is at 22 with a creatinine of 0.34. Unfortunately, due to her prolonged hospitalization, the patient is getting progressively more debilitated and weak. Oral intake is quite suboptimal at this point in time. She does have some oropharyngeal candidiasis, no significant dysphagia and the patient is on Diflucan. Note that the patient was also in a positive fluid balance. She was given a dose of Lasix yesterday with excellent urine output. She put up more than 2 L of urine output following the Lasix. The same will be done today. Awaiting a follow-up chest x-ray from today. She is taking Glucerna shakes. Patient was reevaluated today on 09/06/2022, remains in the ICU, still having intermittent episodes of GI bleeding, and significant drop in her hemoglobin. So far the patient required 6 units of packed RBCs since her admission hemoglobin is still drifting down, she continues to have black tarry stools, and she was supposed to be transferred to [facility], however now that we have GI coverage, and transfer has been placed on hold. I'm still recommending that we proceed with transfer if a bed becomes available. In the meantime we'll continue to stabilize the patient until seen by GI, and I'm recommending a unit of packed RBCs to be given today for a hemoglobin of 7.1 since the patient is having ongoing active GI bleeding with a low hemoglobin of 7.1. Today she will receive her seventh units of packed RBCs. GI is recommending another tagged RBC study and as far as her pulmonary status is concerned, we have her on fluconaz ole, meropenem, and vancomycin. Her recent BAL is still basically nondiagnostic, she had Bettina species, not albicans, nonetheless the patient remains on fluconazole. Patient is feeling thirsty, she is not in any pain, she is not in distress, she is on 5 L nasal cannula with O2 saturation 99%. This x- ray continues to show significant infiltrate in the left upper lobe and right lower lobe. Not to mention the patient is also known to have history of myelodysplasia, she has been intermittently receiving blood transfusions and iron this time her GI bleeding was likely related to the fact that she was given IV heparin for atrial fibrillation. She had EGD and colonoscopy with Dr. alejo no evidence of active bleeding her colonoscopy showed mild diverticulosis, and again have tagged RBC study was nondiagnostic. GI is concerned about possible AVM and recommending a repeat tagged RBC study. In the meantime the recommendation is to continue Protonix. Labs this morning WBC count is 7.8 hem oglobin is 7.1. Platelets are 54,000. Basic metabolic profile is normal renal profile is normal Objective - Vital Signs Vital signs: Vital Signs Temp 97.8 F 09/06/22 12:01 Pulse 111 H 09/06/22 12:30 Resp 12 09/06/22 12:30 BP 88/62 09/06/22 12:30 Pulse Ox 96 09/06/22 12:30 FiO2 100 09/04/22 16:00 Intake & Output 09/05/22 09/06/22 09/06/22 18:59 06:59 18:59 Intake Total 699 1989 360 Output Total 2655 1605 515 Balance -1955 384 -155 Weight 72 kg Intake: IV 299 765 290 0.9% @ 50 200 165 140 Fluconazole in NaCl,Iso- 50 Osm 100 mg In Saline 1 50ml.bag @ 50 mls/hr IVPB DAILY [facility] Rx#:[id number] Meropenem 1 gm In Sodium 99 100 100 Chloride 0.9% 100 ml @ 33 .3 mls/hr IVPB Q8HR [facility] Rx#:[id number] Vancomycin 1,000 mg In 500 Sodium Chloride 0.9% 250 ml @ 125 mls/hr IVPB Q12H [facility] Rx#:[id number] Oral 400 Tube Feeding 70 Blood Product 1224 0 Rc As-1 Unit 0 [id number] Rc As-1 Unit 310 [id number] Rc As-1 Unit 310 [id number] Output: Urine 2655 855 415 Stool 750 100 Other: Voiding Method Indwelling Catheter Indwelling Catheter Indwelling Catheter # Bowel Movements 1 - Exam GENERAL EXAM: Revealed a 62-year-old female, pale looking, on few liters nasal cannula, in no distress. HEAD: Normocephalic. Atraumatic. ENT: Dry mucous membranes, no neck masses no JVD. No stridor, throat is clear. NECK: No masses, no JVD. CHEST: No deformity noted. LUNGS: Crackles at the bases no rhonchi no wheezes. CVS: Normal S1 and S2, no S3 gallop, no murmur. ABDOMEN: No hepatosplenomegaly, normal bowel sounds, no guarding or rigidity. SKIN: No rashes CENTRAL NERVOUS SYSTEM: Alert and oriented 3 and no gross focal deficits. EXTREMITIES: No clubbing edema or cyanosis, good pulses bilaterally. Psychiatric: Normal mood affect and normal mental status examination. - Labs CBC & Chem 7: 09/06/22 08:41 09/06/22 02:57 Labs: Abnormal Lab Results - Last 24 Hours (Table) 09/04/22 09/05/22 09/06/22 Range/Units 06:53 21:25 02:57 RBC 1.68 L (3.80-5.40) m/uL Hgb 5.2 L* D (11.4-16.0) gm/dL Hct 15.4 L* (34.0-46.0) % RDW 23.4 H (11.5-15.5) % Plt Count 54 L (150-450) k/uL Lymphocytes # (Manual) 0.51 L (1.0-4.8) k/uL Metamyelocytes # (Man) (0) k/uL Nucleated RBCs 23 H (0-0) /100 WBC APTT (22.0-30.0) sec Sodium 135 L (137-145) mmol/L Carbon Dioxide 36 H (22-30) mmol/L BUN 38 H (7-17) mg/dL Creatinine 0.35 L (0.52-1.04) mg/dL Glucose 135 H (74-99) mg/dL Calcium 7.8 L (8.4-10.2) mg/dL Crossmatch See Detail 09/06/22 09/06/22 09/06/22 Range/Units 02:57 02:57 08:41 RBC 2.79 L 2.37 L (3.80-5.40) m/uL Hgb 8.2 L D 7.1 L (11.4-16.0) gm/dL Hct 24.0 L 20.6 L (34.0-46.0) % RDW 19.0 H 20.2 H (11.5-15.5) % Plt Count 48 L 54 L (150-450) k/uL Lymphocytes # (Manual) 0.31 L (1.0-4.8) k/uL Metamyelocytes # (Man) 0.16 H (0) k/uL Nucleated RBCs 17 H (0-0) /100 WBC APTT 18.2 L (22.0-30.0) sec Sodium (137-145) mmol/L Carbon Dioxide (22-30) mmol/L BUN (7-17) mg/dL Creatinine (0.52-1.04) mg/dL Glucose (74-99) mg/dL Calcium (8.4-10.2) mg/dL Crossmatch Microbiology - Last 24 Hours (Table) 09/04/22 09:47 Gram Stain - Preliminary Bronchial Washings - Left Bronchial Washings Culture - Preliminary Yeast species Assessment and Plan Assessment: Impression: Recurrent multilobar pneumonia, status post previous BAL of right lower lobe and transbronchial biopsies, nondiagnostic status post recent BAL of the left upper lobe, nondiagnostic Acute on chronic hypoxic respiratory failure secondary to above Mild colitis Acute exacerbation of COPD, baseline FEV1 is 37% Acute GI bleeding, workup is in progress. Diverticulosis. New-onset atrial fibrillation presently in normal sinus rhythm Acute mild systolic congestive heart failure and moderate aortic insufficiency ejection fraction 45%, presently under control. Myelodysplastic syndrome. Acute on chronic blood loss anemia Chronic iron deficiency anemia ex-smoker Recommendation: Continue antibiotics/broad-spectrum Continue oxygen and titrate accordingly Reviewed the cultures from last BAL. Continue blood transfusion and maintain hemoglobin above 7 GI to evaluate and presently repeating tagged RBC study Continue bronchodilators Continue Protonix discussed with the patient the option of potential transfer to [facility], Continue plans for potential transfer patient has not had a bed assigned at [facility] yet Patient remains critically ill. Critical care time is over 30 minutes. Time with Patient: Greater than 30
--- NOTE | 2022-09-06 13:50 | P.PN ---
Subjective Progress Note Date: 09/06/22 Principal diagnosis: Pneumonia, SOB. Hx MDS In f/u pt reporting abd pain, sharp, middle of the abd, Nursing reporting very large, melanotic stool. Patient is asking for something to drink, denies fever, nausea, no other bleeding to report. Objective - Vital Signs Vital signs: Vital Signs Temp 97.8 F 09/06/22 12:01 Pulse 111 H 09/06/22 12:30 Resp 12 09/06/22 12:30 BP 88/62 09/06/22 12:30 Pulse Ox 96 09/06/22 12:30 FiO2 100 09/04/22 16:00 Intake & Output 09/05/22 09/06/22 09/06/22 18:59 06:59 18:59 Intake Total 699 1989 360 Output Total 2655 1605 515 Balance -1956 384 -155 Weight 72 kg Intake: IV 299 765 290 0.9% @ 50 200 165 140 Fluconazole in NaCl,Iso- 50 Osm 100 mg In Saline 1 50ml.bag @ 50 mls/hr IVPB DAILY [facility] Rx#:[id number] Meropenem 1 gm In Sodium 99 100 100 Chloride 0.9% 100 ml @ 33 .3 mls/hr IVPB Q8HR [facility] Rx#:[id number] Vancomycin 1,000 mg In 500 Sodium Chloride 0.9% 250 ml @ 125 mls/hr IVPB Q12H [facility] Rx#:[id number] Oral 400 Tube Feeding 70 Blood Product 1224 0 Rc As-1 Unit 0 [id number] Rc As-1 Unit 310 [id number] Rc As-1 Unit 310 [id number] Output: Urine 2655 855 415 Stool 750 100 Other: Voiding Method Indwelling Catheter Indwelling Catheter Indwelling Catheter # Bowel Movements 1 - Constitutional General appearance: Present: average body habitus, cooperative, no acute distress - EENT Eyes: Present: anicteric sclerae, EOMI ENT: Present: hearing grossly normal, normal oropharynx - Respiratory Details: Respirations even and unlabored at rest - Cardiovascular Details: Tachycardia auscultated, regular rhythm, radial pulse 1-2+ - Peripheral edema leg Peripheral Edema: bilateral: Trace - Gastrointestinal General gastrointestinal: Present: normal bowel sounds, soft, tenderness (Generalized, greater on the right). Absent: absent bowel sounds, decreased bowel sounds, distended, hepatomegaly, hyperactive bowel sounds, organomegaly, rigid, scaphoid, splenomegaly, umbilical hernia, ventral hernia - Integumentary Integumentary: Present: pale - Neurologic Neurologic: Present: CNII-XII intact (Grossly) - Musculoskeletal Musculoskeletal: Present: generalized weakness, strength equal bilaterally - Psychiatric Psychiatric: Present: A&O x's 3, appropriate affect, intact judgment & insight - Labs CBC & Chem 7: 09/06/22 08:41 09/06/22 02:57 Labs: Abnormal Lab Results - Last 24 Hours (Table) 09/04/22 09/05/22 09/06/22 Range/Units 06:53 21:25 02:57 RBC 1.68 L (3.80-5.40) m/uL Hgb 5.2 L* D (11.4-16.0) gm/dL Hct 15.4 L* (34.0-46.0) % RDW 23.4 H (11.5-15.5) % Plt Count 54 L (150-450) k/uL Lymphocytes # (Manual) 0.51 L (1.0-4.8) k/uL Metamyelocytes # (Man) (0) k/uL Nucleated RBCs 23 H (0-0) /100 WBC APTT (22.0-30.0) sec Sodium 135 L (137-145) mmol/L Carbon Dioxide 36 H (22-30) mmol/L BUN 38 H (7-17) mg/dL Creatinine 0.35 L (0.52-1.04) mg/dL Glucose 135 H (74-99) mg/dL Calcium 7.8 L (8.4-10.2) mg/dL Crossmatch See Detail 09/06/22 09/06/22 09/06/22 Range/Units 02:57 02:57 08:41 RBC 2.79 L 2.37 L (3.80-5.40) m/uL Hgb 8.2 L D 7.1 L (11.4-16.0) gm/dL Hct 24.0 L 20.6 L (34.0-46.0) % RDW 19.0 H 20.2 H (11.5-15.5) % Plt Count 48 L 54 L (150-450) k/uL Lymphocytes # (Manual) 0.31 L (1.0-4.8) k/uL Metamyelocytes # (Man) 0.16 H (0) k/uL Nucleated RBCs 17 H (0-0) /100 WBC APTT 18.2 L (22.0-30.0) sec Sodium (137-145) mmol/L Carbon Dioxide (22-30) mmol/L BUN (7-17) mg/dL Creatinine (0.52-1.04) mg/dL Glucose (74-99) mg/dL Calcium (8.4-10.2) mg/dL Crossmatch Microbiology - Last 24 Hours (Table) 09/04/22 09:47 Gram Stain - Preliminary Bronchial Washings - Left Bronchial Washings Culture - Preliminary Yeast species Assessment and Plan (1) Anemia Current Visit: Yes Status: Acute Priority: High Code(s): D64.9 - ANEMIA, UNSPECIFIED SNOMED Code(s): 836144630 (2) GI bleed Current Visit: Yes Status: Acute Priority: High Code(s): K92.2 - GASTRO INTESTINAL HEMORRHAGE, UNSPECIFIED SNOMED Code(s): 78122687 (3) MDS (myelodysplastic syndrome), low grade Current Visit: Yes Status: Chronic Priority: High Code(s): D46.20 - REFRACTORY ANEMIA WITH EXCESS OF BLASTS, UNSPECIFIED SNOMED Code(s): 089808237 Plan: MDS -Patient has a history of the same. She has not required treatment. -Change in hemoglobin noted April 2022. Pt was being followed more closely and there was a plan for another bone marrow biopsy to assess MDS. This is her second hospitalization since June, unfortunately BM Bx has not been able to be scheduled. We will plan for this outpatient, once patient is stable/treated for GI bleed -Follow-up appointment is in the discharge plan Pancytopenia secondary to MDS -Patient is now on her seventh unit of packed red blood cells. Continue to transfuse for hemoglobin less than 7/active bleeding. GI consulted. CBC in the a.m. -Prior, patient's platelets have not been below 90,000. They are 48,000 today, 54,000 on recheck. A transfusion of platelets, not felt it would impact bleeding. Coags normal, fibrinogen normal, Hit antibody negative. No aspirin, NSAIDs, anticoagulation. Use SCDs for DVT prophylaxis GI bleeding -Very large melanotic stool this a.m., precipitous drop in hemoglobin. Patient is getting another unit. -Pending GI evaluation. Patient may possibly be transferred out.
--- NOTE | 2022-09-06 14:57 | NM ---
EXAMINATION TYPE: NM GI bleeding DATE OF EXAM: 09/06/2022 HISTORY: GI bleeding COMPARISON: NONE Following administration of 3 ml PYP 25.8 mCi Tc 99m Sodium Pertechnete. Immediate images post inject ion. FINDINGS: Normal tracer activity is seen in the blood pool of the abdominal aorta, common iliac arteries, femor al arteries, liver, and spleen on all of the interval images. Later images show accumulation of trace r in the urinary bladder, which is consistent with excreted tracer. There is some focal uptake identified at 25 to 30 minutes in the right lower quadrant. This becomes m ore focal and disperses and 55-60 minutes IMPRESSION: Focal uptake and movement at 25 minutes to 55 minutes within the right lower quadrant. Correlate for lower GI bleeding. A Red level critical message alert has been initiated for Nora Galo via the [employer] System on 09/06/2022 2:54 PM. This message alert has been sent to Nora Galo via the preferences provided by the clinician for the receipt of Radiology Critical Findings. Message ID [id number].
--- NOTE | 2022-09-06 16:19 | P.PN ---
Subjective Progress Note Date: 09/06/22 62 year old female with MDS, GI bleed, COPD on 2 L oxygen at home presenting with dyspnea, palpitations, productive cough with occasional hemoptysis, chest pain. Patient was recently hospitalized for pneumonia as well as acute anemia, had a bronchoscopy at that time, patient was eventually discharged on oral antibiotics and prednisone taper. Since presenting to the ED this time, patient has been hypoxic, tachypneic, tachycardic requiring BiPAP for increased work of breathing. Patient was evaluated by pulmonology. Patient was started on IV antibiotics, steroids and bronchodilators for pneumonia as well as COPD exacerbation. CTA chest showed no PE, multifocal airspace disease with moderate emphysema, worsening left upper lobe, also incidental left adrenal nodule. On 08/26, patient had an episode of hypertension and unresponsiveness. Patient was then transferred to the medical ICU. Echocardiogram report reviewed: Mildly impaired LV function with EF 45%, moderate AI. She is now having bloody bowel movements. She was status post 3 units of PRBCs at that point. Surgery was consulted. Tagged RBC scan did not show any active GI bleeding. EGD was done 08/30 which was negative for bleed. C-scope was done on 08/31 which showed mild diverticulosis. Small bowel follow-through was also negative for GI bleed. Her hemoglobin has remained stable until 09/04 when her hemoglobin dropped to 6.8 for which she was transfused 1 unit PRBC. She also underwent bronchoscopy with more cultures collected on 09/04. Patient had large amount of melanotic stools overnight on 09/05 in the morning of 09/06. Her hemoglobin had dropped to 5.2 requiring 2 unit of PRBC. An additional unit of PRBC was ordered on 09/06. STAT RBC scan was ordered and pending at the time of this note. Gastroenterology was also consulted. Patient was seen and examined. No acute events overnight. Patient reports no changes in her breathing. She is on 5L NC saturating 95%. Her baseline is 2L NC at home. General: Tired appearing, no distress, appears older than stated age Derm: warm, dry Head: atraumatic, normocephalic, symmetric Eyes: EOMI, no lid lag, anicteric sclera Mouth: no lip lesion, mucus membranes moist Cardiovascular: S1S2 reg, no murmur Lungs: CTA bilateral, no rhonchi, no rales , no accessory muscle use, nasal cannula 5 L Abdominal: soft, nontender to palpation, no guarding, no appreciable organomegaly Ext: no gross muscle atrophy, no edema, no contractures Neuro: no focal neuro deficits Psych: Alert and oriented x 3 #Acute GI bleed, blood loss anemia #Prerenal azotemia likely due to GI bleed #Antibiotic induced colitis #Acute on chronic hypoxic respiratory failure #Septic secondary to left upper lobe pneumonia #History of MDS #Left adrenal nodule, incidental finding Resolved: Sinus tachycardia Based on my assessment of this patient, this patient meets a moderate complexity level of care. I have reviewed the following storage management consultant notes: Surgery note 09/06, follow-up on tagged RBC scan, keep nothing by mouth, continue PPI and IV fluids. Gastroenterology note 09/06, tagged RBC scan ordered, continue supportive care, transfuse PRBC, Protonix 40 mg twice a day. I have reviewed the results of the following tests: Most recent CBC shows hemoglobin of 7.1. This is after 2 units of PRBC for hemoglobin of 5.2 overnight. Her platelet count is 54. She does have a history of MDS. BMP shows sodium 135, bicarb of 36, BUN of 38, creatinine 0.35 and calcium of 7.8. I have ordered the following tests: CBC ordered for 7 PM. CBC and BMP ordered for tomorrow morning. Agree with tagged RBC scan. I have discussed the care of this patient with the following independent historian: None. I have independently interpreted the following test below: None. I have discussed the management of this patient with the following physician: None. This patient has a moderate risk of morbidity due to the following reasons: Patient has a history of COPD on 2L home O2 with severe exacerbation or progression of disease which poses a threat to life or bodily function. She is currently being treated for pneumonia with Vancomycin 1000 mg IV every 12 hours which is nephrotoxic and requires daily monitoring of her renal function. Continued on Meropenem 1g IV every 8 hours and Diflucan 100 mg IV daily. Levaquin is discontinued. Cultures from BAL is pending. Patient has had active GI bleed overnight on 09/05 and in the morning 09/06. She was transfused 2 units PRBC overnight. She'll be transfused 1 unit PRBC. Tagged RBC scan is pending. Gastroenterology and surgery on board. Possible transfer to [facility] depending on their recommendations. Her colitis is likely antibiotic induced which we will continue to monitor on current antibiotic regimen. Palliative care consult. Prognosis is guarded. Objective - Vital Signs Vital signs: Vital Signs Temp 97.8 F 09/06/22 12:01 Pulse 87 09/06/22 15:54 Resp 15 09/06/22 15:00 BP 105/65 09/06/22 15:00 Pulse Ox 95 09/06/22 14:29 FiO2 100 09/06/22 12:00 Intake & Output 09/05/22 09/06/22 09/06/22 18:59 06:59 18:59 Intake Total 699 1989 890 Output Total 2655 1605 580 Balance -1956 384 310 Weight 72 kg 72 kg Intake: IV 299 765 580 0.9% @ 50 200 165 430 Fluconazole in NaCl,Iso- 50 Osm 100 mg In Saline 1 50ml.bag @ 50 mls/hr IVPB DAILY [facility] Rx#:[id number] Meropenem 1 gm In Sodium 99 100 100 Chloride 0.9% 100 ml @ 33 .3 mls/hr IVPB Q8HR [facility] Rx#:[id number] Vancomycin 1,000 mg In 500 Sodium Chloride 0.9% 250 ml @ 125 mls/hr IVPB Q12H [facility] Rx#:[id number] Oral 400 Blood Product 1224 310 Rc As-1 Unit 310 [id number] Rc As-1 Unit 310 [id number] Rc As-1 Unit 310 [id number] Output: Urine 2655 855 580 Stool 750 Other: Voiding Method Indwelling Catheter Indwelling Catheter Indwelling Catheter # Bowel Movements 1 - Labs CBC & Chem 7: 09/06/22 08:41 09/06/22 02:57 Labs: Abnormal Lab Results - Last 24 Hours (Table) 09/04/22 09/05/22 09/06/22 Range/Units 06:53 21:25 02:57 RBC 1.68 L (3.80-5.40) m/uL Hgb 5.2 L* D (11.4-16.0) gm/dL Hct 15.4 L* (34.0-46.0) % RDW 23.4 H (11.5-15.5) % Plt Count 54 L (150-450) k/uL Lymphocytes # (Manual) 0.51 L (1.0-4.8) k/uL Metamyelocytes # (Man) (0) k/uL Nucleated RBCs 23 H (0-0) /100 WBC APTT (22.0-30.0) sec Sodium 135 L (137-145) mmol/L Carbon Dioxide 36 H (22-30) mmol/L BUN 38 H (7-17) mg/dL Creatinine 0.35 L (0.52-1.04) mg/dL Glucose 135 H (74-99) mg/dL Calcium 7.8 L (8.4-10.2) mg/dL Crossmatch See Detail 09/06/22 09/06/22 09/06/22 Range/Units 02:57 02:57 08:41 RBC 2.79 L 2.37 L (3.80-5.40) m/uL Hgb 8.2 L D 7.1 L (11.4-16.0) gm/dL Hct 24.0 L 20.6 L (34.0-46.0) % RDW 19.0 H 20.2 H (11.5-15.5) % Plt Count 48 L 54 L (150-450) k/uL Lymphocytes # (Manual) 0.31 L (1.0-4.8) k/uL Metamyelocytes # (Man) 0.16 H (0) k/uL Nucleated RBCs 17 H (0-0) /100 WBC APTT 18.2 L (22.0-30.0) sec Sodium (137-145) mmol/L Carbon Dioxide (22-30) mmol/L BUN (7-17) mg/dL Creatinine (0.52-1.04) mg/dL Glucose (74-99) mg/dL Calcium (8.4-10.2) mg/dL Crossmatch Microbiology - Last 24 Hours (Table) 09/04/22 09:47 Gram Stain - Preliminary Bronchial Washings - Left Bronchial Washings Culture - Preliminary Yeast species
[2022-09-06 16:36] LABS: Anisocytosis Slight; HCT 23.3 % (34.0-46.0); HGB 8.4 gm/dL (11.4-16.0); Hyperchromasia Slight; MCH 30.6 pg (25.0-35.0); MCV 84.9 fL (80.0-100.0); Mean Platelet Volume 16.4; Poikilocytosis Moderate; RBC 2.74 m/uL (3.80-5.40); RDW 18.8 % (11.5-15.5); WBC 8.7 k/uL (3.8-10.6)
[2022-09-06 16:48] LABS: Platelet Count 41 k/uL (150-450)
[2022-09-06] MEDS ORDERED: SODIUM CHLORIDE 0.9% 500 ML 250 ML IV ONE (17:54)
[2022-09-06] MEDS ORDERED: SIMETHICONE 40 MG/0.6 ML DROPS 2,000 MG/30 ML BOTTLE PO ONE (18:10)
[2022-09-06 22:22] LABS: Anisocytosis Moderate; MCH 30.1 pg (25.0-35.0); MCHC 33.9 g/dL (31.0-37.0); MCV 88.7 fL (80.0-100.0); Mean Platelet Volume 18.3; Poikilocytosis Moderate; RBC 2.21 m/uL (3.80-5.40); RDW 20.5 % (11.5-15.5); WBC 7.9 k/uL (3.8-10.6)
[2022-09-06 23:48] LABS: HCT 19.6 % (34.0-46.0); HGB 6.6 gm/dL (11.4-16.0)
[2022-09-07 00:37] LABS: Platelet Count 53 k/uL (150-450)
[2022-09-07] MEDS: SODIUM CHLORIDE 0.9% 1,000 ML IV SCH ×2 (04:00→17:55)
[2022-09-07 06:12] LABS: African American GFR (CKD) >90 (>60 ml/min/1.73 sqM); Anion Gap -1 mmol/L; Blood Urea Nitrogen 33 mg/dL (7-17); Carbon Dioxide 28 mmol/L (22-30); Chloride 107 mmol/L (98-107); Glucose 112 mg/dL (74-99); Non-African American GFR(CKD) >90 (>60 ml/min/1.73 sqM); Potassium 4.5 mmol/L (3.5-5.1); Sodium 134 mmol/L (137-145)
[2022-09-07] MEDS: VANCOMYCIN 1,000 MG in SODIUM CHLORIDE 0.9% 250 ML IVPB SCH ×2 (06:17→17:55)
[2022-09-07 06:26] LABS: Calcium 6.4 mg/dL (8.4-10.2)
[2022-09-07 06:46] LABS: Anisocytosis Slight; HCT 26.1 % (34.0-46.0); MCHC 34.4 g/dL (31.0-37.0); MCV 84.4 fL (80.0-100.0); Mean Platelet Volume 18.5; Poikilocytosis Slight; RBC 3.09 m/uL (3.80-5.40); WBC 7.4 k/uL (3.8-10.6)
[2022-09-07] MEDS ORDERED: CALCIUM GLUCONATE IN NACL 1 GM in SALINE 1 100ML.BAG IVPB ONE (07:00)
--- NOTE | 2022-09-07 08:09 | XR ---
EXAMINATION TYPE: XR chest 1V portable DATE OF EXAM: 09/07/2022 HISTORY: Shortness of breath. COMPARISON: 09/05/2022 TECHNIQUE: Single view of the chest is submitted. FINDINGS: Demonstrated are scattered senescent parenchymal change. Scattered mixed infiltrates persist without significant change involvement of the left upper lobe and basilar regions. The heart is stable. Hilar and mediastinal structures are within normal limits. Degenerative changes are seen of the dorsal spine. IMPRESSION: 1. Scattered mixed infiltrates persist without significant change involvement of the left upper lobe and basilar regions.
[2022-09-07 08:26] LABS: ALT 29 U/L (4-34); AST 30 U/L (14-36); Albumin 1.5 g/dL (3.5-5.0); Alkaline Phosphatase 29 U/L (38-126); Bilirubin, Delta 0.2 mg/dL (0.0-0.2); Bilirubin,Unconjugated 0.3 mg/dL (0.0-1.1); Total Bilirubin 0.5 mg/dL (0.2-1.3); Total Protein 3.2 g/dL (6.3-8.2)
--- NOTE | 2022-09-07 08:53 | P.PN ---
Subjective Progress Note Date: 09/07/22 Principal diagnosis: GI bleed This is a pleasant 62-year-old female with a past medical history of COPD, alcohol abuse, iron deficiency anemia with history of iron transfusions, and MDS who presented to the emergency department on 08/25/2022 for complaints of shortness of breath, weakness and recent fall. Patient was admitted for bilateral lobe pneumonia, dyspnea and thought to have episode of atrial fibrillation who was started on a heparin drip. Following the heparin drip the patient started having maroon-colored bowel movements. The heparin drip was discontinued and general surgery was consulted. She states she's been having dark stool at home but she is on oral iron, she states no maroon-colored stools at home or clots. She is reporting left lower and mid abdominal pain, which she rates a 7 out of 10 and states it is sharp in nature. She does have nausea with no vomiting. Patient's nurse reported that she had 4 large maroon colored bowel movements yesterday evening and one large one this morning with clots. Patient was recently hospitalized in July of this year and was anemic with a positive occult stool. Patient underwent EGD and colonoscopy on 07/19/[address] Love. EGD with findings of hiatal hernia, probably grade B erosive esophagitis, with no active bleeding or old blood noted. Colonoscopy with findings of sigmoid diverticulosis, internal and external grade 3 hemorrhoids, and transverse colon adenoma unable to be retrieved. During this hospitalization patient underwent EGD and 08/30/[address] Peralta with findings of minimal gastritis and hiatal hernia. Colonoscopy was then performed on 08/31/[address] Peralta with findings of mild diverticulosis. On 09/02/2022 patient underwent a small bowel follow-through that reported delayed transit through the bowel, no masses noted. 09/03/2022 patient had a CAT scan of chest abdomen and pelvis without contrast which stated moderate subcutaneous edema with small bilateral pleural effusions and mild peritoneal ascites consistent with presumed desire fluid overload state. Moderate underlying emphysematous this change with persistent peripheral infiltrate in the right lung similar to most recent CT. There are new areas of consolidation with air bronchograms throughout the left upper and lower lobes and lingula. Mild to moderate wall thickening in the left and sigmoid colon could reflect product of uncomplicated colitis versus poor distention. Correlate clinically. No bowel obstruction. Patient also underwent bronchoscopy on 09/04/2022, cultures curren tly pending. Patient currently on vancomycin and meropenem. She is on IV Solu- Medrol, oxygen saturation 88% on 3 L, increased to 5 L with improvement up to 94%. Patient did have a negative C. diff on 09/03/2022 She has received a total of 6 units of blood during this admission. Morning labs WBC 5.2 hemoglobin 8.2 hematocrit 24 platelet count 48,000 range at 1.0 fibrinogen 361 sodium 135 potassium 4.4 BUN 38 creatinine 0.35 glucose 135. 09/07/2022: Patient seen and examined this morning. The patient had multiple maroon colored stools through the night with clots. She had a drop in her h emoglobin down to 6.6 and has received 2 additional units of blood, totaling 9 units this admission. Patient continues to have abdominal discomfort mostly in the lower abdomen. No nausea or vomiting. Repeat hemoglobin this morning 9.0. Patient underwent small bowel capsule endoscopy study that was started yesterday evening. Results currently pending. Objective - Vital Signs Vital signs: Vital Signs Temp 98 F 09/07/22 05:00 Pulse 96 09/07/22 07:00 Resp 22 09/07/22 07:00 BP 106/64 09/07/22 07:00 Pulse Ox 98 09/07/22 07:00 FiO2 100 09/06/22 12:00 Intake & Output 09/06/22 09/07/22 09/07/22 18:59 06:59 18:59 Intake Total 1215 2715 75 Output Total 725 1350 140 Balance 490 1365 -65 Weight 72 kg 75.7 kg Intake: IV 905 1475 75 0.9 NACL bolus 250 0.9% @ 50 655 875 75 Fluconazole in NaCl,Iso- 50 Osm 100 mg In Saline 1 50ml.bag @ 50 mls/hr IVPB DAILY [facility] Rx#:[id number] Meropenem 1 gm In Sodium 200 100 Chloride 0.9% 100 ml @ 33 .3 mls/hr IVPB Q8HR [facility] Rx#:[id number] Vancomycin 1,000 mg In 250 Sodium Chloride 0.9% 250 ml @ 125 mls/hr IVPB Q12H [facility] Rx#:[id number] Blood Product 310 1240 Rc As-1 Unit 310 [id number] Rc As-1 Unit 310 [id number] Rc As-1 Unit 310 [id number] Output: Urine 725 450 40 Stool 900 100 Other: Voiding Method Indwelling Catheter Indwelling Catheter # Bowel Movements 1 1 1 - Exam General appearance: The patient is alert, oriented, appears in no acute distress. HET: Head is normocephalic and atraumatic. Conjunctiva pink. Sclera anicteric. Neck: Supple without lymphadenopathy. Abdomen: Soft, diffuse lower abdominal tenderness, nondistended. No guarding or rigidity. Extremities: Normal skin color and turgor. No pedal edema Skin: No rashes, no jaundice Neurological: No focal deficits. Alert and oriented. - Labs CBC & Chem 7: 09/07/22 05:33 09/07/22 05:33 Labs: Abnormal Lab Results - Last 24 Hours (Table) 09/04/22 09/06/22 09/06/22 Range/Units 06:53 08:41 16:15 RBC 2.37 L 2.74 L (3.80-5.40) m/uL Hgb 7.1 L 8.4 L (11.4-16.0) gm/dL Hct 20.6 L 23.3 L (34.0-46.0) % RDW 20.2 H 18.8 H (11.5-15.5) % Plt Count 54 L 41 L (150-450) k/uL Sodium (137-145) mmol/L BUN (7-17) mg/dL Creatinine (0.52-1.04) mg/dL Glucose (74-99) mg/dL Calcium (8.4-10.2) mg/dL Crossmatch See Detail 09/06/22 09/07/22 Range/Units 22:11 05:33 RBC 2.21 L (3.80-5.40) m/uL Hgb 6.6 L* D (11.4-16.0) gm/dL Hct 19.6 L* (34.0-46.0) % RDW 20.5 H (11.5-15.5) % Plt Count 53 L (150-450) k/uL Sodium 134 L (137-145) mmol/L BUN 33 H (7-17) mg/dL Creatinine 0.42 L (0.52-1.04) mg/dL Glucose 112 H (74-99) mg/dL Calcium 6.4 L* (8.4-10.2) mg/dL Crossmatch Microbiology - Last 24 Hours (Table) 09/04/22 09:47 Fungal Culture - Preliminary Bronchial Washings - Left Yeast species 09/04/22 09:47 Gram Stain - Preliminary Bronchial Washings - Left Bronchial Washings Culture - Preliminary Yeast species Assessment and Plan (1) GI bleed Narrative/Plan: 62-year-old female who presented to the emergency department greater than a week ago with complaints of shortness of breath weakness and fall. Patient also with diarrhea, nonbloody prior to admission. She was admitted with bilateral lobe pneumonia and started on IV antibiotics. She has a long-standing history of anemia, she has MDS and follows with hematology. She gets IV transfusions in the past and currently on oral iron. During this hospitalization she was treated with IV heparin for atrial fibrillation, following anticoagulation she had complaints of GI bleed. She underwent EGD and colonoscopy with Dr. Peralta with any evidence of old blood or active bleeding noted. Colonoscopy did show mild diverticulosis. She also underwent a tagged RBC on 08/28/2021 without any evidence of active bleed. She continues to have left lower abdominal pain with multiple maroon colored stools between yesterday and today. Unclear etiology of bleeding, possible etiologies include diverticular bleed, possible AVM. Recommend tagged RBC, transfuse 1 unit of blood. Tagged RBC completed showing uptake in the right lower quadrant correlate for GI bleed. This was discussed with Dr. Lipscomb, general surgeon Dr. Peralta notified as well. Consider possible small bowel capsule endoscopy. We'll await further recommendations from general surgery. Small bowel capsule endoscopy completed, no evidence of upper GI bleed, no old blood or active bleeding seen in the first part of the small bowel, however study was incomplete. Likely dealing with a lower GI bleed, source unclear at this time. Recommend to transfer to tertiary center for higher level of care all possible CTA with embolization. This was discussed with general surgeon, Dr. Peralta who is in agreement. Current Visit: Yes Status: Acute Priority: High Code(s): K92.2 - GASTROINTESTINAL HEMORRHAGE, UNSPECIFIED SNOMED Code(s): 50237792 (2) Diarrhea Narrative/Plan: Negative C. diff Current Visit: Yes Status: Acute Code(s): R19.7 - DIARRHEA, UNSPECIFIED SNOMED Code(s): 67184900 (3) Anemia Current Visit: Yes Status: Acute Priority: High Code(s): D64.9 - ANEMIA, UNSPECIFIED SNOMED Code(s): 701315942 (4) Pneumonia Current Visit: Yes Status: Acute Code(s): J18.9 - PNEUMONIA, UNSPECIFIED ORGANISM SNOMED Code(s): 845789334 (5) MDS (myelodysplastic syndrome), low grade Current Visit: Yes Status: Chronic Priority: High Code(s): D46.20 - REFRACTORY ANEMIA WITH EXCESS OF BLASTS, UNSPECIFIED SNOMED Code(s): 582143236 (6) COPD exacerbation Current Visit: No Status: Acute Code(s): J44.1 - CHRONIC OBSTRUCTIVE PULMONARY DISEASE W (ACUTE) EXACERBATION SNOMED Code(s): 447462454 Plan: 1. Continue symptomatic and supportive care 2. Tagged RBC ordered and reviewed. Small bowel capsule study completed and reviewed. No evidence of upper GI bleed. No old blood or active bleeding seen in first part of small bowel. 3. Keep nothing by mouth 4. CBC every 6 hours, transfuse for hemoglobin less than 7 5. Hold any anticoagulation 6. Protonix 40 mg twice a day for GI prophylaxis 7. Continue with recommendations from general surgery 8. Discussed case with Dr. Peralta, agree recommend transfer to tertiary center for higher level of care, possible CT and with embolization Thank you for this consultation, we will continue to follow. Dr. Geoffrey Lipscomb I agree with the dictator's note, documented as a scribe by Nora De La O.
[2022-09-07] MEDS ORDERED: ANIDULAFUNGIN 200 MG in SODIUM CHLORIDE 0.9% 200 ML IVPB ONE (09:00)
[2022-09-07] MEDS: BUDESONIDE 1 MG/2 ML NEBU INHALATION SCH ×2 (09:11→20:17)
[2022-09-07] MEDS: FORMOTEROL FUMARATE 20 MCG/2 ML NEBU INHALATION SCH ×2 (09:11→20:17)
[2022-09-07] MEDS: IPRATROPIUM-ALBUTEROL 3 ML NEB INHALATION SCH ×4 (09:12→20:17)
[2022-09-07] MEDS: FLUCONAZOLE IN NACL,ISO-OSM 100 MG in SALINE 1 50ML.BAG IVPB SCH (09:35)
[2022-09-07] MEDS: ALPRAZolam 0.25 MG TAB PO PRN ×2 (09:35→20:22)
[2022-09-07] MEDS: PANTOPRAZOLE 40 MG/10 ML VIAL IVP SCH ×2 (09:35→20:22)
[2022-09-07] MEDS: MEROPENEM 1 GM in SODIUM CHLORIDE 0.9% 100 ML IVPB SCH (09:35)
[2022-09-07] MEDS: METOPROLOL TARTRATE 25 MG TAB PO SCH ×2 (09:35→20:22)
[2022-09-07] MEDS: methylPREDNISolone SOD SUCCI 40 MG/ML 1 ML VIAL IV SCH ×2 (09:35→20:23)
[2022-09-07 10:22] LABS: Platelet Count 33 k/uL (150-450)
[2022-09-07] MEDS: HYDROmorphone 0.5 MG/0.5 ML SYRINGE IVP PRN ×4 (11:13→20:22)
--- NOTE | 2022-09-07 11:37 | P.PN ---
Subjective Progress Note Date: 09/07/22 CHIEF COMPLAINT: GI bleed HISTORY OF PRESENT ILLNESS: Patient remains in the ICU. She continues to have bleeding. Patient has had 4 maroon stools through the night. Patient had a hemoglobin of 6.6 and received an additional 2 units of blood. Repeat hemoglobin is 9.0. Patient had tagged RBC scan yesterday that showed uptake in movement at 25 minutes and 55 minutes with right lower quadrant to correlate for lower GI bleeding. Patient underwent capsule endoscopy today. Per GI service no evidence of active bleeding. At this time they're working on transferring patient to a tertiary care center. Afebrile. Mildly tachycardic. Blood pressure 106/64 WBC is 7.4 hgb 9.0 platelets are 33 Na134 potassium 4.5 creatinine 0.42 She is status post colonoscopy which revealed mild diverticulosis. There was a small 3-4 mm polyp in the transverse colon. Small hemorrhoids with no evidence of bleeding. No blood throughout the colon. EGD had shown mild gastritis and hiatal hernia. Small bowel follow-through with no evidence of GI bleed. PHYSICAL EXAM: VITAL SIGNS: Reviewed. GENERAL: Well-developed in no acute distress. ABDOMEN: Soft. Nondistended. Tenderness with palpation left lower quadrant NEUROLOGIC: Alert and oriented. Cranial nerves II through XII grossly intact. ASSESSMENT: 1. Acute GI bleed with dark maroon stools 2. Acute on chronic blood loss anemia 3. Prior history of diverticular bleed 4. History of myelodysplastic syndrome 5. Pneumonia 6. Thrombocytopenia PLAN: -Agree with transfer to tertiary care center for higher level care and possible CT with embolization -1 unit of platelets ordered for platelets of 33 and active bleeding -Continue to monitor hemoglobin and transfuse as needed -keep patient NPO -Continue supportive care -Continue IV fluids -Continue PPI Physician Warper Creeler note has been reviewed by physician. Signing provider agrees with the documented findings, assessment, and plan of care. I have personally seen and examined the patient, reviewed the NEGATIVE TURNER /PAs history, exam and MDM and agree with the assessment and plan as written. Based on total visit time, I have performed more than 50% of the visit. As above: Patient had persistent bleeding yesterday afternoon and through the night. Stools are dark maroon to blackish in color. Yesterday's tagged RBC scan showed transient activity in the right lower abdomen. Specific anatomical bowel loops not described or able to be identified by myself on review of the films. A capsule endoscopy was ordered yesterday afternoon after I spoke with GI regarding the RBC scan. Unfortunately the capsule stayed within the stomach for the first 7 hours or so of the test. We were able to visualize the stomach and proximal small bowel but unable to say how far the capsule made. During the evaluation a few small superficial erythematous spots were seen but nothing obvious that would explain bleeding. There was no blood within the lumen noted at the completion of the procedure. Patient has had some transient hypotension and some transient oliguria that has improved with resuscitation. GI and I have discussed this patient's case at length today and yesterday. Ideally the next study to help localize the bleeding would be a angiogram where embolization or marking of the site of bleeding could be performed for subsequent surgical resection. Unfortunately we do not offer that study here which is part of the reason we had requested transfer previously. Apparently transfer was placed on hold after GI was assessing the patient yesterday even though Dr. Murillo requested the transfer process to continue. The transfer process was reinitiated this morning and apparently the patient has been accepted to [facility] currently. Continue resuscitation. Of note the patient's platelets were noted to drop to 33 likely because of the ongoing bleeding. [address] atelets was ordered. Repeat hemoglobin 7.3 and 1 unit of packed RBCs ordered. We'll follow along with you on this complicated case. Objective - Vital Signs Vital signs: Vital Signs Temp 98 F 09/07/22 05:00 Pulse 111 H 09/07/22 10:29 Resp 20 09/07/22 10:29 BP 106/64 09/07/22 07:00 Pulse Ox 98 09/07/22 10:20 FiO2 100 09/06/22 12:00 Intake & Output 09/06/22 09/07/22 09/07/22 18:59 06:59 18:59 Intake Total 1215 2715 75 Output Total 725 1350 215 Balance 490 1365 -140 Weight 72 kg 75.7 kg Intake: IV 905 1475 75 0.9 NACL bolus 250 0.9% @ 50 655 875 75 Fluconazole in NaCl,Iso- 50 Osm 100 mg In Saline 1 50ml.bag @ 50 mls/hr IVPB DAILY [facility] Rx#:[id number] Meropenem 1 gm In Sodium 200 100 Chloride 0.9% 100 ml @ 33 .3 mls/hr IVPB Q8HR [facility] Rx#:[id number] Vancomycin 1,000 mg In 250 Sodium Chloride 0.9% 250 ml @ 125 mls/hr IVPB Q12H [facility] Rx#:[id number] Blood Product 310 1240 Rc As-1 Unit 310 [id number] Rc As-1 Unit 310 [id number] Rc As-1 Unit 310 [id number] Output: Urine 725 450 40 Stool 900 175 Other: Voiding Method Indwelling Catheter Indwelling Catheter # Bowel Movements 1 1 1 - Labs CBC & Chem 7: 09/07/22 12:37 09/07/22 05:33 Labs: Abnormal Lab Results - Last 24 Hours (Table) 09/04/22 09/06/22 09/06/22 Range/Units 06:53 16:15 22:11 RBC 2.74 L 2.21 L (3.80-5.40) m/uL Hgb 8.4 L 6.6 L* D (11.4-16.0) gm/dL Hct 23.3 L 19.6 L* (34.0-46.0) % RDW 18.8 H 20.5 H (11.5-15.5) % Plt Count 41 L 53 L (150-450) k/uL Sodium (137-145) mmol/L BUN (7-17) mg/dL Creatinine (0.52-1.04) mg/dL Glucose (74-99) mg/dL Calcium (8.4-10.2) mg/dL Alkaline Phosphatase (38-126) U/L Total Protein (6.3-8.2) g/dL Albumin (3.5-5.0) g/dL Crossmatch See Detail 09/07/22 09/07/22 Range/Units 05:33 05:33 RBC 3.09 L (3.80-5.40) m/uL Hgb 9.0 L D (11.4-16.0) gm/dL Hct 26.1 L (34.0-46.0) % RDW 17.0 H (11.5-15.5) % Plt Count 33 L (150-450) k/uL Sodium 134 L (137-145) mmol/L BUN 33 H (7-17) mg/dL Creatinine 0.42 L (0.52-1.04) mg/dL Glucose 112 H (74-99) mg/dL Calcium 6.4 L* (8.4-10.2) mg/dL Alkaline Phosphatase 29 L (38-126) U/L Total Protein 3.2 L (6.3-8.2) g/dL Albumin 1.5 L (3.5-5.0) g/dL Crossmatch Microbiology - Last 24 Hours (Table) 09/04/22 09:47 Fungal Culture - Preliminary Bronchial Washings - Left Yeast species 09/04/22 09:47 Gram Stain - Preliminary Bronchial Washings - Left Bronchial Washings Culture - Preliminary Yeast species
--- NOTE | 2022-09-07 12:31 | P.PN ---
Subjective Progress Note Date: 09/07/22 Principal diagnosis: Recurrent multilobar pneumonia and acute on chronic hypoxic respiratory failure On today's evaluation of 08/30/2022, the patient still being treated for a mul tifocal pneumonia with extensive left upper lobe consolidation. The patient currently is on oxygen at 3 L/m nasal cannula. This is most likely a bacterial pneumonia. Pro-calcitonin level at time of admission was 28.5 and has not been checked since. The white cell count is low at 3.6, with a hemoglobin of 7.3. Noted the patient has been having episode of GI bleed and during this current hospitalization, she has received a total of 3 units of packed RBC. The patient has been having melanotic stools. We have GI surgeries on the case and were still waiting for that interventions and scoping. Meanwhile, I repeat chest x- ray was done and it shows still multilobar and mitral focal pneumonia most extensive in the left upper lobe in addition to the left lower lobe and the right lower lobe. The patient remains on Zosyn. Hemodynamically the patient is off no pressors. She is stable. IV fluids are running at the rate of 0.9 at the rate of 50 mL an hour. She is known to have advanced COPD with an FEV1 of 37% of predicted. She is an ex-smoker. She has chronic anemia and mild dysplas ia. She has also chronic systolic heart failure with an ejection fraction of based on echocardiogram that was done during this current admission. This echocardiogram was done on 08/26/2022 and there is also evidence of moderate degree of aortic insufficiency and moderate left ventricular hypertrophy. Her cardiac rhythm is currently sinus. It was thought that the patient was having episodes of itchy fibrillation. She was given IV heparin which obviously facilitated her GI bleeding.. Note that the patient has undergone previous EGD and colonoscopy on 08/21/2020. The patient was found to have mild chronic gastritis, H. pylori was negative, the patient also had benign squamous glandular mucosal changes in mild chronic esophagitis and was negative for metaplasia. 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 In terms of her lung involvement, the patient has been seen Dr. Ayala on outpatient basis for shortness of breath and the patient is known to have chronic nodular, interstitial areas and areas of consolidation.. A CAT scan of the chest that was done on 05/12/2022 showed waxing and waning patchy airspace opacities and nodular changes. Note that along with history of mild dysplasia, inflammatory processes/infectious processes has been considered. Note that the bronchoscopy was done by Dr. Ayala on 08/18/2022 and the cultures came back negative. Furthermore, transbronchial biopsy of the lung was done and it showed benign mucosa and alveolar tissue. No necrotizing granulomatous process or fungal elements identified. There was possibly some endogenous lipid pneumonia. Condition is obviously progressed. I reviewed the follow-up CAT scan of the chest showed multifocal changes with extensive worsening in the left upper lobe On today's evaluation of the 2022, the patient is being seen for a follow- up. The patient has an acute hypoxic respiratory failure with evidence of multifocal pneumonia. Exact etiology is not clear. The patient's condition is progressed. Previous bronchoscopy has not yielded any microbial growth. Previous transbronchial biopsies were also nondiagnostic. As such, I brought in the patient's antibiotic coverage. For now, she is on a combination of Zosyn and Levaquin and vancomycin. Her breathing is still labored and the patient is somewhat tachypneic. Pulse ox in the order of 89% on 6 L of oxygen by nasal cannula. White suppositive 3.5 at the patient has chronic pancytopenia with a hemoglobin of 7.8 and a platelet count of 5. A repeat chest x-ray done today showed multilobar patchy pulmonary infiltrates involving the left upper lobe, left lower lobe and the right lower lobe. There is also some cavitation developing in the right lower lobe on today's chest x-ray. Findings essentially the same without any significant change since yesterday. Note that the patient's pro-calcitonin level that was obtained yesterday was at 1.89 and this is up significantly from 28 and as such antibiotic coverage will be kept the same. As mentioned, there is no microbial growth obtained on this patient. The sputum was positive for yeast. In terms of hemodynamics, the patient is hemodynamically stable. She is currently on IV fluids at 50 mL an hour of normal saline. Her echocardiogram has shown chronic systolic heart failure and mild impairment of the left ventricle ejection fraction which was in order of 45%. The patient also has moderate degree of aortic regurgitation. She has advanced COPD and she has an FEV1 of 37% of predicted and she is an ex-smoker. On a separate note, there is no episodes of ongoing GI bleed. Hemoglobin is stable at 7.8. The patient underwent a EGD yesterday that showed mild gastritis and hiatal hernia. There was no evidence of an acute bleeding. Neurologically, she is alert and awake. She is tolerating her diet. No nausea. No emesis. No other significant events overnight. On 09/01/2022, the patient is being seen for a follow-up. Her condition is stable and she feels good today. He feels less short of breath compared to yesterday. His breathing is not labored. The patient is currently on 6 L of oxygen by nasal cannula. Repeat chest x-ray shows stable point bilateral pulm onary infiltrates. Nevertheless, the patient has a declining level of pro- calcitonin which has dropped down to 0.63 from a maximum level of 28.5. The patient is also covered with broad-spectrum antibiotics. She is on a combination of Merrem, Levaquin and vancomycin. Unfortunately, no cultures are available. Nevertheless, I believe that this is a bacterial infection with elevated pro-calcitonin level and the rapidly evolving bilateral pulmonary infiltrates. As mentioned, previous arthroscopy was nondiagnostic. In terms of her hematologic profile, the patient could be relatively immunosuppressed. She has a myelodysplasia and her white cell count today's of 3.1 with a platelet count of 68 and a hemoglobin of 7.5. Hematology is on the case. Electrolytes show a potassium level III.2 that needs to be replaced and the sodium level is at 142, BUN is at 12 with a creatinine of 0.4. Vancomycin level is at 19.3. She is hemodynamically stable. Cardiac rhythm is sinus. Urine operas adequate. She is tolerating her diet. No altered mentation. She underwent a colonoscopy yesterday that showed mild diverticulosis, no evidence of any acute bleeding. Her EGD that was done earlier also showed no signs of any acute upper GI bleeding. She had some minimal gastritis and hiatal hernia. Her hemoglobin has remained stable. An echocardiogram on 08/26/2022 showed mild impairment of LV function with moderate degree of aortic insufficiency, left ventricle ejection fraction was 45%. 09/02/2022, the patient feels fatigued and tired. She is currently on 5 L of oxygen by nasal cannula and she is on a broad-spectrum antibiotic coverage including meropenem, Levaquin and vancomycin. Diflucan was also added as the patient had some oropharyngeal candidiasis. Repeat chest x-ray from today shows multifocal pulmonary infiltrates and no significant change compared to yesterday. However, there may be some limited improvement since her admission to the intensive care unit. The patient will be kept on broad-spectrum antibiotics for now. Small bowel follow-through was done and there is no evidence of any abnormalities or bleed at this point in time. Hemoglobin is at 7.3, slightly lower compared to yesterday. The patient did not have any bright red blood per rectum or melanotic stools. Platelet count is at 61, the whites echoes at 3.5, BUN is at 70 with a creatinine of 0.4. Vancomycin trough level is 23.5. She is afebrile. No other new complaints otherwise for now. She is receiving lactated Ringer at the rate of 20 mL an hour. She remains on her routine bronchodilators. She is also on IV Solu-Medrol and the dose has been modified to 40 mg every 12 hours. 09/03/2022, the patient remains on 5 L of oxygen by nasal cannula. She is stable. No interval worsening in her rest or status. A repeat chest x-ray was done that shows stable vital. Over pneumonia. I feel that the left upper lobe pulmonary infiltrates slightly improved. There is some early cavitation the right lower lobe. Meanwhile, the patient's hemodynamically stable. Earlier this morning, she developed some abdominal pain. She also has 2 episodes of diarrhea yesterday. Stool samples of them been collected. I think it's important to check her for C. diff especially the patient has been on broad- spectrum antibiotics. Sputum Gram stain and culture came back positive for Bettina and the patient is already on Diflucan. Her WBC count of 4.2 with a hemoglobin of 7.4 and a platelet count of 60. BUN is at 80 with a creatinine of 0.4 and a sodium level is at 139. Hemodynamically stable. No other significant events otherwise for now. She remains on IV Solu-Medrol. Antibiotic coverage is unchanged. 09/04/2022, the patient remains on oxygen at 5 L. I'm not seeing much of progress in terms of respiratory status. A CAT scan of the chest was done yesterday and it showed multifocal pulmonary infiltrates worse in the left upper lobe and background emphysema. Unfortunately, not much of an improvement in the pulmonary consolidation and air bronchograms and there is also infiltration in the lingula and the lower lobes bilaterally. The patient has been covered with broad-spectrum antibiotics. Subsequently, the patient developed diarrhea. C. diff colitis was suspected. The stool for C. diff came back negative. Meanwhile, a CAT scan of the abdomen was done and it showed some mild to moderate wall thickening of the left colon and the sigmoid colon, suggestive of an underlying colitis. The patient was taken off the Levaquin. The patient remains on a combination of meropenem, vancomycin, and Diflucan. She is suspected to have a low-grade GI bleed also. Her stool was liquid mineral 1. Hemoglobin dropped down to 6.8 and she is going to be receiving a unit of packed RBC. Note that she also has a low platelet of 57. She has mild dysplasia. White cell cause of 4.2. BUN is at 21 with a creatinine of 0.4. Sodium is at 138. A CAT scan of the brain was done yesterday due to the presence of unequal pupils and the CAT scan came back negative and the patient is awake and alert and moving all 4 extremities without any limitation. No significant abdominal pain. No nausea. I talked again about the possibility of another bronchoscopy, at least the bronchial alveolar lavage of the left upper lobe to see if there is any underlying opportunistic infections. She'll be kept on the same antibiotic coverage for now. She is on 5 L of oxygen by nasal cannula. She remains on IV Solu-Medrol. Cardiac rhythm is sinus. No pressors. Fluid balance has been in the order of +1 L. She'll be given a dose of Lasix also. IV fluids are running in the form of normal saline at rate of 25 mL an hour. She as a drop in her pro-calcitonin level from 28 down to 0.6. On 09/05/2022, the patient's condition is stable. I performed a bronchoscopy and lavage of the left upper lobe yesterday. Cultures are still pending for now. The patient did have some difficulties following the bronchoscopy, briefly placed on BiPAP and subsequently placed back on nasal cannula and currently she is down to 3 L. Awaiting a follow-up chest x-ray from today regarding her multilobar pneumonia. Remains on IV Merrem, vancomycin and Diflucan. Stopped the Levaquin. Also, the patient was having some limited colitis, antibiotic induced and the diarrhea has subsided. Stool for C. diff has been negative. No abdominal pain at this point in time. Breathing is quite stable today. I'm continuing the same antibiotic coverage and she is also on steroids. IV fluids are currently running at 25 mL an hour. Her pro calcitonin level has been declining. She was as high as 28 and she dropped down to 0.6. Her white second of 5.6 with a hemoglobin of 7.8. Platelet count from today is still pending. Sodium is at 135, BUN is at 22 with a creatinine of 0.34. Unfortunately, due to her prolonged hospitalization, the patient is getting progressively more debilitated and weak. Oral intake is quite suboptimal at this point in time. She does have some oropharyngeal candidiasis, no significant dysphagia and the patient is on Diflucan. Note that the patient was also in a positive fluid balance. She was given a dose of Lasix yesterday with excellent urine output. She put up more than 2 L of urine output following the Lasix. The same will be done today. Awaiting a follow-up chest x-ray from today. She is taking Glucerna shakes. Patient was reevaluated today on 09/06/2022, remains in the ICU, still having intermittent episodes of GI bleeding, and significant drop in her hemoglobin. So far the patient required 6 units of packed RBCs since her admission hemoglobin is still drifting down, she continues to have black tarry stools, and she was supposed to be transferred to [facility], however now that we have GI coverage, and transfer has been placed on hold. I'm still recommending that we proceed with transfer if a bed becomes available. In the meantime we'll continue to stabilize the patient until seen by GI, and I'm recommending a unit of packed RBCs to be given today for a hemoglobin of 7.1 since the patient is having ongoing active GI bleeding with a low hemoglobin of 7.1. Today she will receive her seventh units of packed RBCs. GI is recommending another tagged RBC study and as far as her pulmonary status is concerned, we have her on fluconaz ole, meropenem, and vancomycin. Her recent BAL is still basically nondiagnostic, she had Bettina species, not albicans, nonetheless the patient remains on fluconazole. Patient is feeling thirsty, she is not in any pain, she is not in distress, she is on 5 L nasal cannula with O2 saturation 99%. This x- ray continues to show significant infiltrate in the left upper lobe and right lower lobe. Not to mention the patient is also known to have history of myelodysplasia, she has been intermittently receiving blood transfusions and iron this time her GI bleeding was likely related to the fact that she was given IV heparin for atrial fibrillation. She had EGD and colonoscopy with Dr. alejo no evidence of active bleeding her colonoscopy showed mild diverticulosis, and again have tagged RBC study was nondiagnostic. GI is concerned about possible AVM and recommending a repeat tagged RBC study. In the meantime the recommendation is to continue Protonix. Labs this morning WBC count is 7.8 hem oglobin is 7.1. Platelets are 54,000. Basic metabolic profile is normal renal profile is normal Reevaluated today on 09/07/2022, patient remains in the ICU, still having intermittent episodes of active bleeding. Patient has received now a total of 9 units of packed RBCs and 1 unit of platelets. Her hemoglobin went down yesterday to 6.6, and today is 9.9. Not to mention the patient has myelodys plasia and thrombocytopenia, gastroenterology and general surgery recommending a tertiary care center referral I fully agree with this, and hopefully the admitting physician will be able to get her transferred to a tertiary care center hopefully [facility] or [facility] or even the [facility] her tagged RBC study yesterday showed uptake in the movement at 25 minutes and 55 minutes with a right lower quadrant 2 correlate for lower GI bleeding. Patient underwent capsule endoscopy today. Patient continues to have multiple maroon colored stools throughout the night with clots. And she had a significant drop in her hemoglobin yesterday. Continues to have some vague abdominal discomfort, overall the patient is doing well, and I had a feeling that her condition will likely deteriorate and should be considered for transfer as soon as possible Objective - Vital Signs Vital signs: Vital Signs Temp 98.5 F 09/07/22 08:00 Pulse 87 09/07/22 11:00 Resp 20 09/07/22 11:00 BP 107/63 09/07/22 11:00 Pulse Ox 98 09/07/22 11:00 FiO2 100 09/06/22 12:00 Intake & Output 09/06/22 09/07/22 09/07/22 18:59 06:59 18:59 Intake Total 1215 2715 625 Output Total 725 1350 380 Balance 490 1365 245 Weight 72 kg 75.7 kg Intake: IV 905 1475 625 0.9 NACL bolus 250 0.9% @ 50 655 875 75 Fluconazole in NaCl,Iso- 50 50 Osm 100 mg In Saline 1 50ml.bag @ 50 mls/hr IVPB DAILY [facility] Rx#:[id number] Meropenem 1 gm In Sodium 200 100 100 Chloride 0.9% 100 ml @ 33 .3 mls/hr IVPB Q8HR [facility] Rx#:[id number] Sodium Chloride 0.9% 1, 150 000 ml @ 75 mls/hr IV . [id number] [facility] Rx#:[id number] Vancomycin 1,000 mg In 250 250 Sodium Chloride 0.9% 250 ml @ 125 mls/hr IVPB Q12H [facility] Rx#:[id number] Blood Product 310 1240 0 Unit 0 Rc As-1 Unit 310 [id number] Rc As-1 Unit 310 [id number] Rc As-1 Unit 310 [id number] Output: Urine 725 450 205 Stool 900 175 Other: Voiding Method Indwelling Catheter Indwelling Catheter Indwelling Catheter # Bowel Movements 1 1 1 - Exam GENERAL EXAM: Revealed a 62-year-old female, pale looking, on few liters nasal cannula, in no distress. HEAD: Normocephalic. Atraumatic. ENT: Dry mucous membranes, no neck masses no JVD. No stridor, throat is clear. NECK: No masses, no JVD. CHEST: No deformity noted. LUNGS: Crackles at the bases no rhonchi no wheezes. CVS: Normal S1 and S2, no S3 gallop, no murmur. ABDOMEN: No hepatosplenomegaly, normal bowel sounds, no guarding or rigidity. SKIN: No rashes CENTRAL NERVOUS SYSTEM: Alert and oriented 3 and no gross focal deficits. EXTREMITIES: No clubbing edema or cyanosis, good pulses bilaterally. Psychiatric: Normal mood affect and normal mental status examination. - Labs CBC & Chem 7: 09/07/22 05:33 09/07/22 05:33 Labs: Abnormal Lab Results - Last 24 Hours (Table) 09/04/22 09/06/22 09/06/22 Range/Units 06:53 16:15 22:11 RBC 2.74 L 2.21 L (3.80-5.40) m/uL Hgb 8.4 L 6.6 L* D (11.4-16.0) gm/dL Hct 23.3 L 19.6 L* (34.0-46.0) % RDW 18.8 H 20.5 H (11.5-15.5) % Plt Count 41 L 53 L (150-450) k/uL Sodium (137-145) mmol/L BUN (7-17) mg/dL Creatinine (0.52-1.04) mg/dL Glucose (74-99) mg/dL Calcium (8.4-10.2) mg/dL Alkaline Phosphatase (38-126) U/L Total Protein (6.3-8.2) g/dL Albumin (3.5-5.0) g/dL Crossmatch See Detail 09/07/22 09/07/22 Range/Units 05:33 05:33 RBC 3.09 L (3.80-5.40) m/uL Hgb 9.0 L D (11.4-16.0) gm/dL Hct 26.1 L (34.0-46.0) % RDW 17.0 H (11.5-15.5) % Plt Count 33 L (150-450) k/uL Sodium 134 L (137-145) mmol/L BUN 33 H (7-17) mg/dL Creatinine 0.42 L (0.52-1.04) mg/dL Glucose 112 H (74-99) mg/dL Calcium 6.4 L* (8.4-10.2) mg/dL Alkaline Phosphatase 29 L (38-126) U/L Total Protein 3.2 L (6.3-8.2) g/dL Albumin 1.5 L (3.5-5.0) g/dL Crossmatch Microbiology - Last 24 Hours (Table) 09/04/22 09:47 Fungal Culture - Preliminary Bronchial Washings - Left Yeast species 09/04/22 09:47 Gram Stain - Preliminary Bronchial Washings - Left Bronchial Washings Culture - Preliminary Yeast species Assessment and Plan Assessment: Impression: Recurrent multilobar pneumonia, status post previous BAL of right lower lobe and transbronchial biopsies, nondiagnostic status post recent BAL of the left upper lobe, nondiagnostic Acute on chronic hypoxic respiratory failure secondary to above Mild colitis Acute exacerbation of COPD, baseline FEV1 is 37% Acute GI bleeding, workup is in progress. Diverticulosis. New-onset atrial fibrillation presently in normal sinus rhythm Acute mild systolic congestive heart failure and moderate aortic insufficiency ejection fraction 45%, presently under control. Myelodysplastic syndrome. Acute on chronic blood loss anemia Chronic iron deficiency anemia ex-smoker Recommendation: Continue to monitor hemoglobin and transfuse accordingly erik frank a hemoglobin above 7 Reviewed the notes from different consultants including surgery and jordana roenterology and I fully agree that the patient should be transferred to a tertiary care center. Continue antibiotics/broad-spectrum Continue oxygen and titrate accordingly Cultures from BAL remain nondiagnostic Continue bronchodilators Continue Protonix Patient remains critically ill. Critical care time is over 30 minutes. Time with Patient: Greater than 30
[2022-09-07 13:07] LABS: Anisocytosis Moderate; HCT 20.6 % (34.0-46.0); HGB 7.3 gm/dL (11.4-16.0); Hyperchromasia Slight; MCH 29.1 pg (25.0-35.0); MCHC 35.4 g/dL (31.0-37.0); MCV 82.3 fL (80.0-100.0); Poikilocytosis Moderate; WBC 7.3 k/uL (3.8-10.6)
[2022-09-07 13:15] LABS: Platelet Count 36 k/uL (150-450)
--- NOTE | 2022-09-07 15:33 | P.PN ---
Subjective Progress Note Date: 09/07/22 Principal diagnosis: Pneumonia, SOB. Hx MDS In f/u pt c/o mild abdominal discomfort today with palpation, not reporting bleeding, generalized moderate to severe weakness. Objective - Vital Signs Vital signs: Vital Signs Temp 98.3 F 09/07/22 12:15 Pulse 85 09/07/22 12:15 Resp 17 09/07/22 12:15 BP 100/72 09/07/22 12:15 Pulse Ox 94 L 09/07/22 12:15 FiO2 100 09/06/22 12:00 Intake & Output 09/06/22 09/07/22 09/07/22 18:59 06:59 18:59 Intake Total 1215 2715 625 Output Total 725 1350 380 Balance 490 1365 245 Weight 72 kg 75.7 kg Intake: IV 905 1475 625 0.9 NACL bolus 250 0.9% @ 50 655 875 75 Fluconazole in NaCl,Iso- 50 50 Osm 100 mg In Saline 1 50ml.bag @ 50 mls/hr IVPB DAILY [facility] Rx#:[id number] Meropenem 1 gm In Sodium 200 100 100 Chloride 0.9% 100 ml @ 33 .3 mls/hr IVPB Q8HR [facility] Rx#:[id number] Sodium Chloride 0.9% 1, 150 000 ml @ 75 mls/hr IV . [id number] [facility] Rx#:[id number] Vancomycin 1,000 mg In 250 250 Sodium Chloride 0.9% 250 ml @ 125 mls/hr IVPB Q12H [facility] Rx#:[id number] Blood Product 310 1240 0 Unit 0 Rc As-1 Unit 310 [id number] Rc As-1 Unit 310 [id number] Rc As-1 Unit 310 [id number] Output: Urine 725 450 205 Stool 900 175 Other: Voiding Method Indwelling Catheter Indwelling Catheter Indwelling Catheter # Bowel Movements 1 1 1 - Constitutional General appearance: Present: average body habitus, cooperative, no acute distress - EENT EENT Comment(s): conjunctival swelling Eyes: Present: anicteric sclerae, EOMI ENT: Present: hearing grossly normal - Respiratory Respiratory: bilateral: diminished (weak inspiratory effort) - Cardiovascular Rhythm: regular - Peripheral edema leg Peripheral Edema: bilateral: Trace, Pitting - Gastrointestinal General gastrointestinal: Present: soft, tenderness Localized gastrointestinal: tender: RLQ, suprabubic - Integumentary Integumentary: Present: pale - Neurologic Neurologic: Present: CNII-XII intact - Musculoskeletal Musculoskeletal: Present: generalized weakness - Psychiatric Psychiatric: Present: A&O x's 3, appropriate affect, intact judgment & insight - Labs CBC & Chem 7: 09/07/22 12:37 09/07/22 05:33 Labs: Abnormal Lab Results - Last 24 Hours (Table) 09/04/22 09/06/22 09/06/22 Range/Units 06:53 16:15 22:11 RBC 2.74 L 2.21 L (3.80-5.40) m/uL Hgb 8.4 L 6.6 L* D (11.4-16.0) gm/dL Hct 23.3 L 19.6 L* (34.0-46.0) % RDW 18.8 H 20.5 H (11.5-15.5) % Plt Count 41 L 53 L (150-450) k/uL Sodium (137-145) mmol/L BUN (7-17) mg/dL Creatinine (0.52-1.04) mg/dL Glucose (74-99) mg/dL Calcium (8.4-10.2) mg/dL Alkaline Phosphatase (38-126) U/L Total Protein (6.3-8.2) g/dL Albumin (3.5-5.0) g/dL Crossmatch See Detail 09/07/22 09/07/22 09/07/22 Range/Units 05:33 05:33 12:37 RBC 3.09 L 2.50 L (3.80-5.40) m/uL Hgb 9.0 L D 7.3 L D (11.4-16.0) gm/dL Hct 26.1 L 20.6 L (34.0-46.0) % RDW 17.0 H 20.0 H (11.5-15.5) % Plt Count 33 L 36 L (150-450) k/uL Sodium 134 L (137-145) mmol/L BUN 33 H (7-17) mg/dL Creatinine 0.42 L (0.52-1.04) mg/dL Glucose 112 H (74-99) mg/dL Calcium 6.4 L* (8.4-10.2) mg/dL Alkaline Phosphatase 29 L (38-126) U/L Total Protein 3.2 L (6.3-8.2) g/dL Albumin 1.5 L (3.5-5.0) g/dL Crossmatch Microbiology - Last 24 Hours (Table) 09/04/22 09:47 Gram Stain - Preliminary Bronchial Washings - Left Bronchial Washings Culture - Preliminary Bettina species, not albicans 09/04/22 09:47 Fungal Culture - Preliminary Bronchial Washings - Left Yeast species - Imaging and Cardiology Chest x-ray: report reviewed (stable, persistent MIGUEL infiltrate) Tagged RBC scan report reviewed Assessment and Plan (1) Anemia Current Visit: Yes Status: Acute Priority: High Code(s): D64.9 - ANEMIA, UNSPECIFIED SNOMED Code(s): 315123338 (2) GI bleed Current Visit: Yes Status: Acute Priority: High Code(s): K92.2 - GASTROINTESTINAL HEMORRHAGE, UNSPECIFIED SNOMED Code(s): 43543544 (3) MDS (myelodysplastic syndrome), low grade Current Visit: Yes Status: Chronic Priority: High Code(s): D46.20 - REFRACTORY ANEMIA WITH EXCESS OF BLASTS, UNSPECIFIED SNOMED Code(s): 275442403 Plan: MDS -Hx of the same, no treatment to date. -Change in hemoglobin April 2022. She was scheduled for more frequent follow-ups, documented that plan for another bone marrow biopsy to assess MDS. This is her second hospitalization since June, unfortunately BM Bx has not been able to be scheduled. We will plan for this outpatient, once patient is stable/treated for GI bleed -Follow-up appointment is in the discharge plan Bicytopenia secondary to MDS -Patient is now on her 9 unit of packed red blood cells. Continue to transfuse for hemoglobin less than 7/active bleeding. CBC monitoring while inpt. -Prior, patient's platelets have not been below 90,000. They are 36,000 today. 1 unit of plt given today. No aspirin, NSAIDs, anticoagulation. Use SCDs for DVT prophylaxis GI bleeding -S/P Tagged RBC scan with RLQ findings suspicious for bleed. -Per multiple Specialties and Internal Medicine patient is pending transfer to tertiary facility
--- NOTE | 2022-09-07 23:18 | P.CONS ---
History of Present Illness - Reason for Consult Consult date: 09/07/22 - History of Present Illness Patient is a 62-year-old female with a past medical history difficult for COPD myelodysplastic syndrome presenting to the hospital 2 weeks ago for evaluation of increasing shortness of breath patient apparently recently have admission to the hospital with similar symptoms with the patient did have a bronchoscopy and transbronchial biopsy on 215 as well as 08/18/2022 and cultures were negative for resistant pathogen patient on presentation to the hospital this time was afebrile and no fever has been recorded during this hospital stay patient has been requiring supplemental oxygen but no pressor support per the nursing staff patient did have a normal white count during this hospital admission kidney function has been normal procalcitonin was 28.50 on admission subsequently down to 0.63 patient did have a negative influenza RSV and COVID testing sputum during this admission has grown Bettina species and the patient did have bronchoscopy on 09/04/2022 is also growing Bettina species patient has been treated with the Diflucan and vancomycin Eraxis was added today and infectious disease was consulted consult for possible Bettina auris infection, patient however mention her breathing has been improving patient denies having any chest pain she cannot have a cough no decrease in intensity denies any hemoptysis no nausea vomiting no abdominal pain or any diarrhea patient last chest x-ray completed this morning reported scattered mixed infiltrate persist without significant change involvement of the left upper lobe and basilar region Past Medical History Past Medical History: Blood Disorder, COPD, Pneumonia Additional Past Medical History / Comment(s): Myelodysplastic syndrome ., Neutropenia., macrocytosis., iron deficiency anemia- hx iron transfusions., emphysema., hospitalized at [facility] 07/16 to 07/27/22 - egd & colonoscopy done showing erosive esophagitis, hiatal hernia, diverticulitis, hemorrhoids, colon polyp., bronchoscopy 07/21/22 ., pneumonia, she received 3 blood transfusions., oxygen at 2L. History of Any Multi-Drug Resistant Organisms: None Reported Past Surgical History: No Surgical Hx Reported Additional Past Surgical History / Comment(s): TEETH PULLED, COLONOSCOPY, EGD, BRONCHOSCOPY Past Anesthesia/Blood Transfusion Reactions: No Reported Reaction Additional Past Anesthesia/Blood Transfusion Reaction / Comm: unknown family hx- pt is adopted, no children Past Psychological History: Anxiety Smoking Status: Former smoker Past Alcohol Use History: None Reported Past Drug Use History: Marijuana - Past Family History Father History Unknown: Yes Additional Family Medical History / Comment(s): unknown, adopted at Mother History Unknown: Yes Additional Family Medical History / Comment(s): unknown, adopted at Medications and Allergies Home Medications Medication Instructions Recorded Confirmed Type ALPRAZolam [Xanax] 0.25 mg PO BID 07/16/22 08/25/22 History Ascorbic Acid [Vitamin C] 500 mg PO DAILY 07/16/22 08/25/22 History Cyanocobalamin (Vitamin B-12) 5,000 mcg PO DAILY 07/16/22 08/25/22 History [Vitamin B-12] Pantoprazole [Protonix] 40 mg PO AC-BID #60 tab 07/26/22 08/25/22 Rx Albuterol Inhaler [Ventolin Hfa 1 - 2 puff INHALATION Q6H PRN 08/16/22 08/25/22 History Inhaler] Albuterol Nebulized [Ventolin 2.5 mg INHALATION RT-QID 08/16/22 08/25/22 History Nebulized] Folic Acid 1 mg PO DAILY 08/16/22 08/25/22 History Ferrous Sulfate [Slow Fe] 142 mg PO DAILY 08/25/22 08/25/22 History Tiotropium [place] [Spiriva] 1 puff IH RT-DAILY 08/25/22 08/25/22 History predniSONE See Taper PO DAILY 08/25/22 08/25/22 History Allergies Allergy/AdvReac Type Severity Reaction Status Date / Time ferumoxytol Allergy Severe Rash/Hives Verified 08/25/22 15:57 Physical Exam Vitals: Vital Signs Temp Pulse Resp BP Pulse Ox 09/07/22 22:00 112 H 12 94 L 09/07/22 21:00 97.4 F L 95 12 96 09/07/22 20:50 97.9 F 93 14 95/46 95 09/07/22 20:37 96 09/07/22 20:30 96.4 F L 96 18 104/52 100 09/07/22 20:20 96.3 F L 92 20 105/71 100 09/07/22 20:18 98 09/07/22 20:00 96.5 F L 102 H 13 96 09/07/22 19:00 113 H 12 95 09/07/22 18:00 93 20 105/61 94 L 09/07/22 17:00 87 11 L 109/54 94 L 09/07/22 16:15 99 20 09/07/22 16:05 93 20 09/07/22 16:00 98.0 F 85 9 L 101/52 09/07/22 15:00 87 19 99/62 96 09/07/22 14:08 98.0 F 114 H 16 101/52 09/07/22 14:00 81 16 98/55 96 09/07/22 13:00 81 19 95 09/07/22 12:45 98.3 F 90 17 99/62 96 09/07/22 12:25 98.5 F 81 17 98/55 95 09/07/22 12:15 98.3 F 85 17 100/72 94 L 09/07/22 12:00 98.3 F 80 12 100/72 96 09/07/22 11:00 87 20 107/63 98 09/07/22 10:29 111 H 20 09/07/22 10:20 113 H 21 98 09/07/22 10:00 98 22 121/74 96 09/07/22 09:00 99 16 110/65 96 09/07/22 08:00 98.5 F 92 16 109/72 97 09/07/22 07:00 96 22 106/64 98 09/07/22 06:30 90 15 104/65 97 09/07/22 06:00 110 H 15 118/68 97 09/07/22 05:30 97 16 102/57 96 09/07/22 05:00 98 F 87 14 102/69 97 09/07/22 04:42 98.1 F 90 18 102/69 97 09/07/22 04:30 86 17 103/60 97 09/07/22 04:00 98 F 109 H 19 96/52 96 09/07/22 03:53 98 F 90 20 103/60 97 09/07/22 03:43 98 F 98 20 97/57 96 09/07/22 03:33 97.8 F 98 18 96/52 96 09/07/22 03:30 89 19 97/57 96 09/07/22 03:00 92 15 105/58 95 09/07/22 02:45 98 F 100 18 105/58 95 09/07/22 02:30 90 16 97/55 86 L 09/07/22 02:00 113 H 16 106/54 97 09/07/22 01:30 95 14 102/59 09/07/22 01:18 97.7 F 96 17 102/59 95 09/07/22 01:00 96 17 101/54 87 L 09/07/22 00:58 97.7 F 97 16 97/56 94 L 09/07/22 00:30 98 17 83/46 94 L 09/07/22 00:08 97.9 F 98 16 102/71 93 L 09/07/22 00:00 97.5 F L 114 H 16 99/54 93 L 09/06/22 23:30 101 H 20 86/67 93 L Intake and Output 09/07/22 09/07/22 09/08/22 14:59 22:59 06:59 Intake Total 1470 875 Output Total 515 315 Balance 955 560 Intake: IV 850 775 0.9% @ 50 75 Fluconazole in NaCl,Iso- 50 Osm 100 mg In Saline 1 50ml.bag @ 50 mls/hr IVPB DAILY [facility] Rx#:[id number] Meropenem 1 gm In Sodium 100 Chloride 0.9% 100 ml @ 33 .3 mls/hr IVPB Q8HR [facility] Rx#:[id number] Sodium Chloride 0.9% 1, 375 525 000 ml @ 75 mls/hr IV . [id number] [facility] Rx#:[id number] Vancomycin 1,000 mg In 250 250 Sodium Chloride 0.9% 250 ml @ 125 mls/hr IVPB Q12H [facility] Rx#:[id number] Oral 100 100 Blood Product 520 0 Platelet Pheresis Pas 260 Psoralen Unit [id number] Rc As-1 Unit 0 [id number] Output: Urine 340 315 Stool 175 Other: Voiding Method Indwelling Catheter Indwelling Catheter # Bowel Movements 1 ABP, PAP, CO, CI - Last 8 Hours Arterial Blood Pressure 87/44 Arterial Blood Pressure 90/41 Arterial Blood Pressure 112/51 Arterial Blood Pressure 94/47 Arterial Blood Pressure 120/49 Results CBC & Chem 7: 09/07/22 12:37 09/07/22 05:33 Labs: Abnormal Lab Results - Last 24 Hours (Table) 09/04/22 09/06/22 09/07/22 Range/Units 06:53 22:11 05:33 RBC 2.21 L (3.80-5.40) m/uL Hgb 6.6 L* D (11.4-16.0) gm/dL Hct 19.6 L* (34.0-46.0) % RDW 20.5 H (11.5-15.5) % Plt Count 53 L (150-450) k/uL Sodium 134 L (137-145) mmol/L BUN 33 H (7-17) mg/dL Creatinine 0.42 L (0.52-1.04) mg/dL Glucose 112 H (74-99) mg/dL Calcium 6.4 L* (8.4-10.2) mg/dL Alkaline Phosphatase 29 L (38-126) U/L Total Protein 3.2 L (6.3-8.2) g/dL Albumin 1.5 L (3.5-5.0) g/dL Crossmatch See Detail 09/07/22 09/07/22 09/07/22 Range/Units 05:33 12:37 17:50 RBC 3.09 L 2.50 L (3.80-5.40) m/uL Hgb 9.0 L D 7.3 L D (11.4-16.0) gm/dL Hct 26.1 L 20.6 L (34.0-46.0) % RDW 17.0 H 20.0 H (11.5-15.5) % Plt Count 33 L 36 L (150-450) k/uL Sodium (137-145) mmol/L BUN (7-17) mg/dL Creatinine (0.52-1.04) mg/dL Glucose (74-99) mg/dL Calcium (8.4-10.2) mg/dL Alkaline Phosphatase (38-126) U/L Total Protein (6.3-8.2) g/dL Albumin (3.5-5.0) g/dL Crossmatch See Detail Microbiology - Last 24 Hours (Table) 09/04/22 09:47 Acid Fast Bacilli Smear - Final Bronchial Washings - Left Acid Fast Bacilli Culture - Preliminary 09/04/22 09:47 Gram Stain - Preliminary Bronchial Washings - Left Bronchial Washings Culture - Preliminary Bettina species, not albicans Assessment and Plan Plan: 1-Patient is a 62-year-old female in this patient with multiple comorbidities including emphysema and also have multiple admission to the hospital and exposure to antibiotics will be right candidate for Bettina auris infection as the patient has grown Bettina know that because of the patient is in her broke a sputum culture on multiple occasion and should be sent for proper identification to the state lab, however it has grown predominantly from her respiratory tract and currently does not have any common pathogen to cause pneumonia and her blood culture has been negative 2-keeping in mind the patient seem to have shown clinical improvement the patient progressively became down without getting treatment for Bettina auris we may not be dealing with this pathogen 3-for now I agree with switching her to Eraxis however discontinued after came as no need for double antifungal coverage We will follow on clinical condition and cultures to further adjust medication if needed Thank you for this consultation we will follow the patient along with you Time with Patient: Greater than 30
[2022-09-08 01:23] LABS: Anisocytosis Slight; MCH 30.4 pg (25.0-35.0); MCHC 35.1 g/dL (31.0-37.0); MCV 86.6 fL (80.0-100.0); Mean Platelet Volume 17.3; Poikilocytosis Moderate; RBC 2.19 m/uL (3.80-5.40); RDW 19.9 % (11.5-15.5)
[2022-09-08 01:38] LABS: HGB 6.7 gm/dL (11.4-16.0); Platelet Count 43 k/uL (150-450)
[2022-09-08] MEDS: HYDROmorphone 0.5 MG/0.5 ML SYRINGE IVP PRN ×2 (02:34→08:57)
[2022-09-08 04:42] LABS: African American GFR (CKD) >90 (>60 ml/min/1.73 sqM); Anion Gap 0 mmol/L; Blood Urea Nitrogen 36 mg/dL (7-17); Carbon Dioxide 27 mmol/L (22-30); Chloride 108 mmol/L (98-107); Glucose 115 mg/dL (74-99); Non-African American GFR(CKD) >90 (>60 ml/min/1.73 sqM); Potassium 4.8 mmol/L (3.5-5.1); Sodium 135 mmol/L (137-145)
[2022-09-08] MEDS: SODIUM CHLORIDE 0.9% 1,000 ML IV SCH ×2 (04:43→06:23)
[2022-09-08 04:46] LABS: Calcium 6.2 mg/dL (8.4-10.2)
[2022-09-08] MEDS ORDERED: CALCIUM GLUCONATE IN NACL 1 GM in SALINE 1 100ML.BAG IVPB ONE (04:53)
[2022-09-08] MEDS ORDERED: VANCOMYCIN TROUGH DUE 1 EACH MISC MISCELLANE ONE (05:00)
[2022-09-08] MEDS: ALPRAZolam 0.25 MG TAB PO PRN ×2 (05:06→11:50)
[2022-09-08 05:10] LABS: Band Neutrophils % 2 %; Metamyelocytes % 1 %; Neutrophils % (M) 92 %; Nucleated Red Blood Cells 64 /100 WBC (0-0); Total Cells Counted 100
[2022-09-08 05:11] LABS: Anisocytosis (M) Present; Lymphocytes # (M) 0.21 k/uL (1.0-4.8); Metamyelocytes # (M) 0.04 k/uL (0); Polychromasia Present; WBC 4.2 k/uL (3.8-10.6)
[2022-09-08 05:12] LABS: Large Platelets Present
[2022-09-08] MEDS: VANCOMYCIN 1,000 MG in SODIUM CHLORIDE 0.9% 250 ML IVPB SCH (06:14)
[2022-09-08 07:38] LABS: Anisocytosis Slight; HGB 7.2 gm/dL (11.4-16.0); MCHC 36.1 g/dL (31.0-37.0); MCV 85.8 fL (80.0-100.0); Mean Platelet Volume 12.5; Poikilocytosis Moderate; RBC 2.31 m/uL (3.80-5.40); RDW 19.3 % (11.5-15.5); WBC 7.7 k/uL (3.8-10.6)
[2022-09-08 08:32] LABS: HCT 19.8 % (34.0-46.0)
[2022-09-08 08:33] LABS: Platelet Count 72 k/uL (150-450)
[2022-09-08] MEDS: BUDESONIDE 1 MG/2 ML NEBU INHALATION SCH (08:50)
[2022-09-08] MEDS: FORMOTEROL FUMARATE 20 MCG/2 ML NEBU INHALATION SCH (08:50)
[2022-09-08] MEDS: IPRATROPIUM-ALBUTEROL 3 ML NEB INHALATION SCH ×2 (08:50→11:34)
[2022-09-08] MEDS: methylPREDNISolone SOD SUCCI 40 MG/ML 1 ML VIAL IV SCH (08:57)
[2022-09-08] MEDS: METOPROLOL TARTRATE 25 MG TAB PO SCH (08:57)
[2022-09-08] MEDS: PANTOPRAZOLE 40 MG/10 ML VIAL IVP SCH (08:57)
[2022-09-08] MEDS ORDERED: ANIDULAFUNGIN 100 MG in SODIUM CHLORIDE 0.9% 100 ML IVPB SCH (09:00)
--- NOTE | 2022-09-08 12:01 | P.PN ---
Subjective Progress Note Date: 09/08/22 Principal diagnosis: Recurrent multilobar pneumonia and acute on chronic hypoxic respiratory failure On today's evaluation of 08/30/2022, the patient still being treated for a mul tifocal pneumonia with extensive left upper lobe consolidation. The patient currently is on oxygen at 3 L/m nasal cannula. This is most likely a bacterial pneumonia. Pro-calcitonin level at time of admission was 28.5 and has not been checked since. The white cell count is low at 3.6, with a hemoglobin of 7.3. Noted the patient has been having episode of GI bleed and during this current hospitalization, she has received a total of 3 units of packed RBC. The patient has been having melanotic stools. We have GI surgeries on the case and were still waiting for that interventions and scoping. Meanwhile, I repeat chest x- ray was done and it shows still multilobar and mitral focal pneumonia most extensive in the left upper lobe in addition to the left lower lobe and the right lower lobe. The patient remains on Zosyn. Hemodynamically the patient is off no pressors. She is stable. IV fluids are running at the rate of 0.9 at the rate of 50 mL an hour. She is known to have advanced COPD with an FEV1 of 37% of predicted. She is an ex-smoker. She has chronic anemia and mild dysplas ia. She has also chronic systolic heart failure with an ejection fraction of based on echocardiogram that was done during this current admission. This echocardiogram was done on 08/26/2022 and there is also evidence of moderate degree of aortic insufficiency and moderate left ventricular hypertrophy. Her cardiac rhythm is currently sinus. It was thought that the patient was having episodes of itchy fibrillation. She was given IV heparin which obviously facilitated her GI bleeding.. Note that the patient has undergone previous EGD and colonoscopy on 08/21/2020. The patient was found to have mild chronic gastritis, H. pylori was negative, the patient also had benign squamous glandular mucosal changes in mild chronic esophagitis and was negative for metaplasia. 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 In terms of her lung involvement, the patient has been seen Dr. Ayala on outpatient basis for shortness of breath and the patient is known to have chronic nodular, interstitial areas and areas of consolidation.. A CAT scan of the chest that was done on 05/12/2022 showed waxing and waning patchy airspace opacities and nodular changes. Note that along with history of mild dysplasia, inflammatory processes/infectious processes has been considered. Note that the bronchoscopy was done by Dr. Ayala on 08/18/2022 and the cultures came back negative. Furthermore, transbronchial biopsy of the lung was done and it showed benign mucosa and alveolar tissue. No necrotizing granulomatous process or fungal elements identified. There was possibly some endogenous lipid pneumonia. Condition is obviously progressed. I reviewed the follow-up CAT scan of the chest showed multifocal changes with extensive worsening in the left upper lobe On today's evaluation of the 2022, the patient is being seen for a follow- up. The patient has an acute hypoxic respiratory failure with evidence of multifocal pneumonia. Exact etiology is not clear. The patient's condition is progressed. Previous bronchoscopy has not yielded any microbial growth. Previous transbronchial biopsies were also nondiagnostic. As such, I brought in the patient's antibiotic coverage. For now, she is on a combination of Zosyn and Levaquin and vancomycin. Her breathing is still labored and the patient is somewhat tachypneic. Pulse ox in the order of 89% on 6 L of oxygen by nasal cannula. White suppositive 3.5 at the patient has chronic pancytopenia with a hemoglobin of 7.8 and a platelet count of 5. A repeat chest x-ray done today showed multilobar patchy pulmonary infiltrates involving the left upper lobe, left lower lobe and the right lower lobe. There is also some cavitation developing in the right lower lobe on today's chest x-ray. Findings essentially the same without any significant change since yesterday. Note that the patient's pro-calcitonin level that was obtained yesterday was at 1.89 and this is up significantly from 28 and as such antibiotic coverage will be kept the same. As mentioned, there is no microbial growth obtained on this patient. The sputum was positive for yeast. In terms of hemodynamics, the patient is hemodynamically stable. She is currently on IV fluids at 50 mL an hour of normal saline. Her echocardiogram has shown chronic systolic heart failure and mild impairment of the left ventricle ejection fraction which was in order of 45%. The patient also has moderate degree of aortic regurgitation. She has advanced COPD and she has an FEV1 of 37% of predicted and she is an ex-smoker. On a separate note, there is no episodes of ongoing GI bleed. Hemoglobin is stable at 7.8. The patient underwent a EGD yesterday that showed mild gastritis and hiatal hernia. There was no evidence of an acute bleeding. Neurologically, she is alert and awake. She is tolerating her diet. No nausea. No emesis. No other significant events overnight. On 09/01/2022, the patient is being seen for a follow-up. Her condition is stable and she feels good today. He feels less short of breath compared to yesterday. His breathing is not labored. The patient is currently on 6 L of oxygen by nasal cannula. Repeat chest x-ray shows stable point bilateral pulm onary infiltrates. Nevertheless, the patient has a declining level of pro- calcitonin which has dropped down to 0.63 from a maximum level of 28.5. The patient is also covered with broad-spectrum antibiotics. She is on a combination of Merrem, Levaquin and vancomycin. Unfortunately, no cultures are available. Nevertheless, I believe that this is a bacterial infection with elevated pro-calcitonin level and the rapidly evolving bilateral pulmonary infiltrates. As mentioned, previous arthroscopy was nondiagnostic. In terms of her hematologic profile, the patient could be relatively immunosuppressed. She has a myelodysplasia and her white cell count today's of 3.1 with a platelet count of 68 and a hemoglobin of 7.5. Hematology is on the case. Electrolytes show a potassium level III.2 that needs to be replaced and the sodium level is at 142, BUN is at 12 with a creatinine of 0.4. Vancomycin level is at 19.3. She is hemodynamically stable. Cardiac rhythm is sinus. Urine operas adequate. She is tolerating her diet. No altered mentation. She underwent a colonoscopy yesterday that showed mild diverticulosis, no evidence of any acute bleeding. Her EGD that was done earlier also showed no signs of any acute upper GI bleeding. She had some minimal gastritis and hiatal hernia. Her hemoglobin has remained stable. An echocardiogram on 08/26/2022 showed mild impairment of LV function with moderate degree of aortic insufficiency, left ventricle ejection fraction was 45%. 09/02/2022, the patient feels fatigued and tired. She is currently on 5 L of oxygen by nasal cannula and she is on a broad-spectrum antibiotic coverage including meropenem, Levaquin and vancomycin. Diflucan was also added as the patient had some oropharyngeal candidiasis. Repeat chest x-ray from today shows multifocal pulmonary infiltrates and no significant change compared to yesterday. However, there may be some limited improvement since her admission to the intensive care unit. The patient will be kept on broad-spectrum antibiotics for now. Small bowel follow-through was done and there is no evidence of any abnormalities or bleed at this point in time. Hemoglobin is at 7.3, slightly lower compared to yesterday. The patient did not have any bright red blood per rectum or melanotic stools. Platelet count is at 61, the whites echoes at 3.5, BUN is at 70 with a creatinine of 0.4. Vancomycin trough level is 23.5. She is afebrile. No other new complaints otherwise for now. She is receiving lactated Ringer at the rate of 20 mL an hour. She remains on her routine bronchodilators. She is also on IV Solu-Medrol and the dose has been modified to 40 mg every 12 hours. 09/03/2022, the patient remains on 5 L of oxygen by nasal cannula. She is stable. No interval worsening in her rest or status. A repeat chest x-ray was done that shows stable vital. Over pneumonia. I feel that the left upper lobe pulmonary infiltrates slightly improved. There is some early cavitation the right lower lobe. Meanwhile, the patient's hemodynamically stable. Earlier this morning, she developed some abdominal pain. She also has 2 episodes of diarrhea yesterday. Stool samples of them been collected. I think it's important to check her for C. diff especially the patient has been on broad- spectrum antibiotics. Sputum Gram stain and culture came back positive for Bettina and the patient is already on Diflucan. Her WBC count of 4.2 with a hemoglobin of 7.4 and a platelet count of 60. BUN is at 80 with a creatinine of 0.4 and a sodium level is at 139. Hemodynamically stable. No other significant events otherwise for now. She remains on IV Solu-Medrol. Antibiotic coverage is unchanged. 09/04/2022, the patient remains on oxygen at 5 L. I'm not seeing much of progress in terms of respiratory status. A CAT scan of the chest was done yesterday and it showed multifocal pulmonary infiltrates worse in the left upper lobe and background emphysema. Unfortunately, not much of an improvement in the pulmonary consolidation and air bronchograms and there is also infiltration in the lingula and the lower lobes bilaterally. The patient has been covered with broad-spectrum antibiotics. Subsequently, the patient developed diarrhea. C. diff colitis was suspected. The stool for C. diff came back negative. Meanwhile, a CAT scan of the abdomen was done and it showed some mild to moderate wall thickening of the left colon and the sigmoid colon, suggestive of an underlying colitis. The patient was taken off the Levaquin. The patient remains on a combination of meropenem, vancomycin, and Diflucan. She is suspected to have a low-grade GI bleed also. Her stool was liquid mineral 1. Hemoglobin dropped down to 6.8 and she is going to be receiving a unit of packed RBC. Note that she also has a low platelet of 57. She has mild dysplasia. White cell cause of 4.2. BUN is at 21 with a creatinine of 0.4. Sodium is at 138. A CAT scan of the brain was done yesterday due to the presence of unequal pupils and the CAT scan came back negative and the patient is awake and alert and moving all 4 extremities without any limitation. No significant abdominal pain. No nausea. I talked again about the possibility of another bronchoscopy, at least the bronchial alveolar lavage of the left upper lobe to see if there is any underlying opportunistic infections. She'll be kept on the same antibiotic coverage for now. She is on 5 L of oxygen by nasal cannula. She remains on IV Solu-Medrol. Cardiac rhythm is sinus. No pressors. Fluid balance has been in the order of +1 L. She'll be given a dose of Lasix also. IV fluids are running in the form of normal saline at rate of 25 mL an hour. She as a drop in her pro-calcitonin level from 28 down to 0.6. On 09/05/2022, the patient's condition is stable. I performed a bronchoscopy and lavage of the left upper lobe yesterday. Cultures are still pending for now. The patient did have some difficulties following the bronchoscopy, briefly placed on BiPAP and subsequently placed back on nasal cannula and currently she is down to 3 L. Awaiting a follow-up chest x-ray from today regarding her multilobar pneumonia. Remains on IV Merrem, vancomycin and Diflucan. Stopped the Levaquin. Also, the patient was having some limited colitis, antibiotic induced and the diarrhea has subsided. Stool for C. diff has been negative. No abdominal pain at this point in time. Breathing is quite stable today. I'm continuing the same antibiotic coverage and she is also on steroids. IV fluids are currently running at 25 mL an hour. Her pro calcitonin level has been declining. She was as high as 28 and she dropped down to 0.6. Her white second of 5.6 with a hemoglobin of 7.8. Platelet count from today is still pending. Sodium is at 135, BUN is at 22 with a creatinine of 0.34. Unfortunately, due to her prolonged hospitalization, the patient is getting progressively more debilitated and weak. Oral intake is quite suboptimal at this point in time. She does have some oropharyngeal candidiasis, no significant dysphagia and the patient is on Diflucan. Note that the patient was also in a positive fluid balance. She was given a dose of Lasix yesterday with excellent urine output. She put up more than 2 L of urine output following the Lasix. The same will be done today. Awaiting a follow-up chest x-ray from today. She is taking Glucerna shakes. Patient was reevaluated today on 09/06/2022, remains in the ICU, still having intermittent episodes of GI bleeding, and significant drop in her hemoglobin. So far the patient required 6 units of packed RBCs since her admission hemoglobin is still drifting down, she continues to have black tarry stools, and she was supposed to be transferred to [facility], however now that we have GI coverage, and transfer has been placed on hold. I'm still recommending that we proceed with transfer if a bed becomes available. In the meantime we'll continue to stabilize the patient until seen by GI, and I'm recommending a unit of packed RBCs to be given today for a hemoglobin of 7.1 since the patient is having ongoing active GI bleeding with a low hemoglobin of 7.1. Today she will receive her seventh units of packed RBCs. GI is recommending another tagged RBC study and as far as her pulmonary status is concerned, we have her on fluconaz ole, meropenem, and vancomycin. Her recent BAL is still basically nondiagnostic, she had Bettina species, not albicans, nonetheless the patient remains on fluconazole. Patient is feeling thirsty, she is not in any pain, she is not in distress, she is on 5 L nasal cannula with O2 saturation 99%. This x- ray continues to show significant infiltrate in the left upper lobe and right lower lobe. Not to mention the patient is also known to have history of myelodysplasia, she has been intermittently receiving blood transfusions and iron this time her GI bleeding was likely related to the fact that she was given IV heparin for atrial fibrillation. She had EGD and colonoscopy with Dr. alejo no evidence of active bleeding her colonoscopy showed mild diverticulosis, and again have tagged RBC study was nondiagnostic. GI is concerned about possible AVM and recommending a repeat tagged RBC study. In the meantime the recommendation is to continue Protonix. Labs this morning WBC count is 7.8 hem oglobin is 7.1. Platelets are 54,000. Basic metabolic profile is normal renal profile is normal Reevaluated today on 09/07/2022, patient remains in the ICU, still having intermittent episodes of active bleeding. Patient has received now a total of 9 units of packed RBCs and 1 unit of platelets. Her hemoglobin went down yesterday to 6.6, and today is 9.9. Not to mention the patient has myelodys plasia and thrombocytopenia, gastroenterology and general surgery recommending a tertiary care center referral I fully agree with this, and hopefully the admitting physician will be able to get her transferred to a tertiary care center hopefully [facility] or [facility] or even the [facility] her tagged RBC study yesterday showed uptake in the movement at 25 minutes and 55 minutes with a right lower quadrant 2 correlate for lower GI bleeding. Patient underwent capsule endoscopy today. Patient continues to have multiple maroon colored stools throughout the night with clots. And she had a significant drop in her hemoglobin yesterday. Continues to have some vague abdominal discomfort, overall the patient is doing well, and I had a feeling that her condition will likely deteriorate and should be considered for transfer as soon as possible reevaluated today on 09/08/2022, patient is still having intermittent episodes of maroon colored stools, obviously she is still having GI bleeding, she had a total of 11 units of packed RBCs since admission and a total of 2 units of platelets. Hemoglobin today is 7.2, patient has been accepted at [facility], we are waiting for clearance by her insurance.hemoglobin this morning is 7.2 WBC count is 7.7, electrodes are normal renal profile is normalcytology from her BAL was negative/nondiagnostic.microbiology from her BAL was also unremarkable, nondiagnostic. Objective - Vital Signs Vital signs: Vital Signs Temp 97.5 F L 09/08/22 08:00 Pulse 90 09/08/22 11:48 Resp 15 09/08/22 11:48 BP 117/47 09/08/22 05:30 Pulse Ox 98 09/08/22 08:51 FiO2 100 09/06/22 12:00 Intake & Output 09/07/22 09/08/22 09/08/22 18:59 06:59 18:59 Intake Total 2045 1895 650 Output Total 680 365 155 Balance 1365 1530 495 Weight 77.3 kg Intake: IV 1325 900 650 0.9% @ 50 75 Anidulafungin 100 mg In 100 Sodium Chloride 0.9% 100 ml @ 84 mls/hr IVPB DAILY [facility] Rx#:[id number] Fluconazole in NaCl,Iso- 50 Osm 100 mg In Saline 1 50ml.bag @ 50 mls/hr IVPB DAILY [facility] Rx#:[id number] Meropenem 1 gm In Sodium 100 Chloride 0.9% 100 ml @ 33 .3 mls/hr IVPB Q8HR [facility] Rx#:[id number] Sodium Chloride 0.9% 1, 600 900 300 000 ml @ 75 mls/hr IV . [id number] [facility] Rx#:[id number] Vancomycin 1,000 mg In 500 250 Sodium Chloride 0.9% 250 ml @ 125 mls/hr IVPB Q12H [facility] Rx#:[id number] Oral 200 Blood Product 520 995 0 Platelet Pheresis Pas 260 Psoralen Unit [id number] Platelet Pheresis Pas 375 Psoralen Unit [id number] Rc As-1 Unit 310 [id number] Rc As-1 Unit 310 [id number] Rc As-1 Unit 0 [id number] Output: Urine 505 365 155 Stool 175 Other: Voiding Method Indwelling Catheter Indwelling Catheter Indwelling Catheter # Bowel Movements 1 1 ABP, PAP, CO, CI - Last Documented Arterial Blood Pressure 111/40 - Exam GENERAL EXAM: Revealed a 62-year-old female, pale looking, on few liters nasal cannula, in no distress. HEAD: Normocephalic. Atraumatic. ENT: Dry mucous membranes, no neck masses no JVD. No stridor, throat is clear. NECK: No masses, no JVD. CHEST: No deformity noted. LUNGS: Crackles at the bases no rhonchi no wheezes. CVS: Normal S1 and S2, no S3 gallop, no murmur. ABDOMEN: No hepatosplenomegaly, normal bowel sounds, no guarding or rigidity. SKIN: No rashes CENTRAL NERVOUS SYSTEM: Alert and oriented 3 and no gross focal deficits. EXTREMITIES: No clubbing edema or cyanosis, good pulses bilaterally. Psychiatric: Normal mood affect and normal mental status examination. - Labs CBC & Chem 7: 09/08/22 07:15 09/08/22 01:00 Labs: Abnormal Lab Results - Last 24 Hours (Table) 09/07/22 09/07/22 09/08/22 Range/Units 12:37 17:50 01:00 RBC 2.50 L (3.80-5.40) m/uL Hgb 7.3 L D (11.4-16.0) gm/dL Hct 20.6 L (34.0-46.0) % RDW 20.0 H (11.5-15.5) % Plt Count 36 L (150-450) k/uL Lymphocytes # (Manual) (1.0-4.8) k/uL Metamyelocytes # (Man) (0) k/uL Nucleated RBCs (0-0) /100 WBC Sodium 135 L (137-145) mmol/L Chloride 108 H (98-107) mmol/L BUN 36 H (7-17) mg/dL Glucose 115 H (74-99) mg/dL Calcium 6.2 L* (8.4-10.2) mg/dL Ionized Calcium Reza (4.5-5.3) mg/dL Crossmatch See Detail 09/08/22 09/08/22 09/08/22 Range/Units 01:00 01:00 01:00 RBC 2.19 L (3.80-5.40) m/uL Hgb 6.7 L* (11.4-16.0) gm/dL Hct 19.0 L* (34.0-46.0) % RDW 19.9 H (11.5-15.5) % Plt Count 43 L (150-450) k/uL Lymphocytes # (Manual) 0.21 L (1.0-4.8) k/uL Metamyelocytes # (Man) 0.04 H (0) k/uL Nucleated RBCs 64 H (0-0) /100 WBC Sodium (137-145) mmol/L Chloride (98-107) mmol/L BUN (7-17) mg/dL Glucose 114 H (74-99) mg/dL Calcium (8.4-10.2) mg/dL Ionized Calcium Reza 4.4 L (4.5-5.3) mg/dL Crossmatch 09/08/22 Range/Units 07:15 RBC 2.31 L (3.80-5.40) m/uL Hgb 7.2 L (11.4-16.0) gm/dL Hct 19.8 L* (34.0-46.0) % RDW 19.3 H (11.5-15.5) % Plt Count 72 L D (150-450) k/uL Lymphocytes # (Manual) (1.0-4.8) k/uL Metamyelocytes # (Man) (0) k/uL Nucleated RBCs (0-0) /100 WBC Sodium (137-145) mmol/L Chloride (98-107) mmol/L BUN (7-17) mg/dL Glucose (74-99) mg/dL Calcium (8.4-10.2) mg/dL Ionized Calcium Reza (4.5-5.3) mg/dL Crossmatch Microbiology - Last 24 Hours (Table) 09/04/22 09:47 Acid Fast Bacilli Smear - Final Bronchial Washings - Left Acid Fast Bacilli Culture - Preliminary 09/04/22 09:47 Gram Stain - Preliminary Bronchial Washings - Left Bronchial Washings Culture - Preliminary Bettina species, not albicans Assessment and Plan Assessment: Impression: Recurrent multilobar pneumonia, status post previous BAL of right lower lobe and transbronchial biopsies, nondiagnostic status post recent BAL of the left upper lobe, nondiagnostic Acute on chronic hypoxic respiratory failure secondary to above Mild colitis Acute exacerbation of COPD, baseline FEV1 is 37% Acute GI bleeding, needs to be addressed further by a tertiary care center and the patient is being transferred to [facility] for her recurrent GI bleeding and required so far 11 units of packed RBCs. Diverticulosis. New-onset atrial fibrillation presently in normal sinus rhythm Acute mild systolic congestive heart failure and moderate aortic insufficiency ejection fraction 45%, presently under control. Myelodysplastic syndrome. Acute on chronic blood loss anemia Chronic iron deficiency anemia ex-smoker Recommendation: Continue to monitor hemoglobin and transfuse accordingly main taining a hemoglobin above 7 transfer patient to [facility] once a bed is available and approved by her insurance to transfer. Continue antibiotics/broad-spectrum Continue oxygen and titrate accordingly Cultures from BAL, were all nondiagnostic. Continue bronchodilators Continue Protonix Patient remains critically ill. Critical care time is over 30 minutes. Time with Patient: Greater than 30
--- NOTE | 2022-09-08 12:18 | P.PN ---
Subjective Progress Note Date: 09/08/22 Principal diagnosis: GI bleed Patient had some ongoing melanotic stools overnight. She received a total of 3 units of packed red blood cells yesterday and is on her second unit today. She has also been given 2 units of platelets. Most recent hemoglobin 7.2 with platelets at 72. Clinically stable. Adequate urine output. Apparently the patient is been accepted at [facility] for transfer. Patient denies any significant pain. Her granddaughter is at the bedside. Objective - Vital Signs Vital signs: Vital Signs Temp 97.5 F L 09/08/22 11:58 Pulse 92 09/08/22 11:58 Resp 20 09/08/22 11:58 BP 145/61 09/08/22 11:58 Pulse Ox 96 09/08/22 11:58 FiO2 100 09/06/22 12:00 Intake & Output 09/07/22 09/08/22 09/08/22 18:59 06:59 18:59 Intake Total 2045 1895 650 Output Total 680 365 155 Balance 1365 1530 495 Weight 77.3 kg Intake: IV 1325 900 650 0.9% @ 50 75 Anidulafungin 100 mg In 100 Sodium Chloride 0.9% 100 ml @ 84 mls/hr IVPB DAILY [facility] Rx#:[id number] Fluconazole in NaCl,Iso- 50 Osm 100 mg In Saline 1 50ml.bag @ 50 mls/hr IVPB DAILY [facility] Rx#:[id number] Meropenem 1 gm In Sodium 100 Chloride 0.9% 100 ml @ 33 .3 mls/hr IVPB Q8HR [facility] Rx#:[id number] Sodium Chloride 0.9% 1, 600 900 300 000 ml @ 75 mls/hr IV . [id number] [facility] Rx#:[id number] Vancomycin 1,000 mg In 500 250 Sodium Chloride 0.9% 250 ml @ 125 mls/hr IVPB Q12H [facility] Rx#:[id number] Oral 200 Blood Product 520 995 0 Platelet Pheresis Pas 260 Psoralen Unit [id number] Platelet Pheresis Pas 375 Psoralen Unit [id number] Rc As-1 Unit 310 [id number] Rc As-1 Unit 310 [id number] Rc As-1 Unit 0 [id number] Output: Urine 505 365 155 Stool 175 Other: Voiding Method Indwelling Catheter Indwelling Catheter Indwelling Catheter # Bowel Movements 1 1 ABP, PAP, CO, CI - Last Documented Arterial Blood Pressure 111/40 - Exam Abdomen: Soft, mild distention, mild lower abdominal tenderness - Labs CBC & Chem 7: 09/08/22 07:15 09/08/22 01:00 Labs: Abnormal Lab Results - Last 24 Hours (Table) 09/07/22 09/07/22 09/08/22 Range/Units 12:37 17:50 01:00 RBC 2.50 L (3.80-5.40) m/uL Hgb 7.3 L D (11.4-16.0) gm/dL Hct 20.6 L (34.0-46.0) % RDW 20.0 H (11.5-15.5) % Plt Count 36 L (150-450) k/uL Lymphocytes # (Manual) (1.0-4.8) k/uL Metamyelocytes # (Man) (0) k/uL Nucleated RBCs (0-0) /100 WBC Sodium 135 L (137-145) mmol/L Chloride 108 H (98-107) mmol/L BUN 36 H (7-17) mg/dL Glucose 115 H (74-99) mg/dL Calcium 6.2 L* (8.4-10.2) mg/dL Ionized Calcium Reza (4.5-5.3) mg/dL Crossmatch See Detail 09/08/22 09/08/22 09/08/22 Range/Units 01:00 01:00 01:00 RBC 2.19 L (3.80-5.40) m/uL Hgb 6.7 L* (11.4-16.0) gm/dL Hct 19.0 L* (34.0-46.0) % RDW 19.9 H (11.5-15.5) % Plt Count 43 L (150-450) k/uL Lymphocytes # (Manual) 0.21 L (1.0-4.8) k/uL Metamyelocytes # (Man) 0.04 H (0) k/uL Nucleated RBCs 64 H (0-0) /100 WBC Sodium (137-145) mmol/L Chloride (98-107) mmol/L BUN (7-17) mg/dL Glucose 114 H (74-99) mg/dL Calcium (8.4-10.2) mg/dL Ionized Calcium Reza 4.4 L (4.5-5.3) mg/dL Crossmatch 09/08/22 Range/Units 07:15 RBC 2.31 L (3.80-5.40) m/uL Hgb 7.2 L (11.4-16.0) gm/dL Hct 19.8 L* (34.0-46.0) % RDW 19.3 H (11.5-15.5) % Plt Count 72 L D (150-450) k/uL Lymphocytes # (Manual) (1.0-4.8) k/uL Metamyelocytes # (Man) (0) k/uL Nucleated RBCs (0-0) /100 WBC Sodium (137-145) mmol/L Chloride (98-107) mmol/L BUN (7-17) mg/dL Glucose (74-99) mg/dL Calcium (8.4-10.2) mg/dL Ionized Calcium Reza (4.5-5.3) mg/dL Crossmatch Microbiology - Last 24 Hours (Table) 09/04/22 09:47 Acid Fast Bacilli Smear - Final Bronchial Washings - Left Acid Fast Bacilli Culture - Preliminary 09/04/22 09:47 Gram Stain - Preliminary Bronchial Washings - Left Bronchial Washings Culture - Preliminary Bettina species, not albicans Assessment and Plan (1) GI bleed Narrative/Plan: 62-year-old female with ongoing GI bleed thought to be related to small bowel etiology. Transferring to tertiary care center for mesenteric angiogram with embolization or marking for subsequent surgical resection. Alternatives including push enteroscopy by advanced GI also discussed with patient and her family. All questions answered. Current Visit: Yes Status: Acute Priority: High Code(s): K92.2 - GASTROINTESTINAL HEMORRHAGE, UNSPECIFIED SNOMED Code(s): 50512428
[2022-09-08 12:27] VITALS: BP 134/55; PULSE 87; RESP 20; TEMP 97.5
--- NOTE | 2022-09-08 12:43 | P.PN ---
Subjective Progress Note Date: 09/07/22 62 year old female with MDS, GI bleed, COPD on 2 L oxygen at home presenting with dyspnea, palpitations, productive cough with occasional hemoptysis, chest pain. Patient was recently hospitalized for pneumonia as well as acute anemia, had a bronchoscopy at that time, patient was eventually discharged on oral antibiotics and prednisone taper. Since presenting to the ED this time, patient has been hypoxic, tachypneic, tachycardic requiring BiPAP for increased work of breathing. Patient was evaluated by pulmonology. Patient was started on IV antibiotics, steroids and bronchodilators for pneumonia as well as COPD exacerbation. CTA chest showed no PE, multifocal airspace disease with moderate emphysema, worsening left upper lobe, also incidental left adrenal nodule. On 08/26, patient had an episode of hypertension and unresponsiveness. Patient was then transferred to the medical ICU. Echocardiogram report reviewed: Mildly impaired LV function with EF 45%, moderate AI. She is now having bloody bowel movements. She was status post 3 units of PRBCs at that point. Surgery was consulted. Tagged RBC scan did not show any active GI bleeding. EGD was done 08/30 which was negative for bleed. C-scope was done on 08/31 which showed mild diverticulosis. Small bowel follow-through was also negative for GI bleed. Her hemoglobin has remained stable until 09/04 when her hemoglobin dropped to 6.8 for which she was transfused 1 unit PRBC. She also underwent bronchoscopy with more cultures collected on 09/04. Patient had large amount of melanotic stools overnight on 09/05 in the morning of 09/06. Her hemoglobin had dropped to 5.2 requiring 2 unit of PRBC. An additional unit of PRBC was ordered on 09/06. STAT RBC scan was ordered and pending at the time of this note. Gastroenterology was also consulted. Patient was seen and examined. No acute events overnight. Patient reports no changes in her breathing. She is on 5L NC saturating 95%. Her baseline is 2L NC at home. General: Tired appearing, no distress, appears older than stated age Derm: warm, dry Head: atraumatic, normocephalic, symmetric Eyes: EOMI, no lid lag, anicteric sclera Mouth: no lip lesion, mucus membranes moist Cardiovascular: S1S2 reg, no murmur Lungs: CTA bilateral, no rhonchi, no rales , no accessory muscle use, nasal cannula 5 L Abdominal: soft, nontender to palpation, no guarding, no appreciable organomegaly Ext: no gross muscle atrophy, no edema, no contractures Neuro: no focal neuro deficits Psych: Alert and oriented x 3 #Acute GI bleed, blood loss anemia #Prerenal azotemia likely due to GI bleed #Antibiotic induced colitis #Acute on chronic hypoxic respiratory failure #Septic secondary to left upper lobe pneumonia #History of MDS #Left adrenal nodule, incidental finding Resolved: Sinus tachycardia Reviewed labs, Hgb dropped to overnight, requiring 2U PRBC. Vital signs stable. Discussed case with general surgery and GI, they recommend transfer to tertiary care. Discussed case with [facility] system, they have accepted patient for transfer pending insurance auth and bed availability. Reviewed images and personally interpreted CXR on 09/07, MIGUEL and RLL findings appear worse. Reviewed microbiology, growing clarissa spp from sputum and BAL. Started Eraxis, monitoring labs for toxicity. Consulted ID for concern for clarissa auris pneu monia. Objective - Vital Signs Vital signs: Vital Signs Temp 97.5 F L 09/08/22 12:25 Pulse 87 09/08/22 12:25 Resp 20 09/08/22 12:25 BP 134/55 09/08/22 12:25 Pulse Ox 96 09/08/22 12:05 FiO2 100 09/06/22 12:00 Intake & Output 09/07/22 09/08/22 09/08/22 18:59 06:59 18:59 Intake Total 2045 1895 650 Output Total 680 365 155 Balance 1365 1530 495 Weight 77.3 kg Intake: IV 1325 900 650 0.9% @ 50 75 Anidulafungin 100 mg In 100 Sodium Chloride 0.9% 100 ml @ 84 mls/hr IVPB DAILY [facility] Rx#:[id number] Fluconazole in NaCl,Iso- 50 Osm 100 mg In Saline 1 50ml.bag @ 50 mls/hr IVPB DAILY [facility] Rx#:[id number] Meropenem 1 gm In Sodium 100 Chloride 0.9% 100 ml @ 33 .3 mls/hr IVPB Q8HR [facility] Rx#:[id number] Sodium Chloride 0.9% 1, 600 900 300 000 ml @ 75 mls/hr IV . [id number] [facility] Rx#:[id number] Vancomycin 1,000 mg In 500 250 Sodium Chloride 0.9% 250 ml @ 125 mls/hr IVPB Q12H [facility] Rx#:[id number] Oral 200 Blood Product 520 995 0 Platelet Pheresis Pas 260 Psoralen Unit [id number] Platelet Pheresis Pas 375 Psoralen Unit [id number] Rc As-1 Unit 310 [id number] Rc As-1 Unit 310 [id number] Rc As-1 Unit 0 [id number] Output: Urine 505 365 155 Stool 175 Other: Voiding Method Indwelling Catheter Indwelling Catheter Indwelling Catheter # Bowel Movements 1 1 ABP, PAP, CO, CI - Last Documented Arterial Blood Pressure 147/58 - Labs CBC & Chem 7: 09/08/22 07:15 09/08/22 01:00 Labs: Abnormal Lab Results - Last 24 Hours (Table) 09/07/22 09/07/22 09/08/22 Range/Units 12:37 17:50 01:00 RBC 2.50 L (3.80-5.40) m/uL Hgb 7.3 L D (11.4-16.0) gm/dL Hct 20.6 L (34.0-46.0) % RDW 20.0 H (11.5-15.5) % Plt Count 36 L (150-450) k/uL Lymphocytes # (Manual) (1.0-4.8) k/uL Metamyelocytes # (Man) (0) k/uL Nucleated RBCs (0-0) /100 WBC Sodium 135 L (137-145) mmol/L Chloride 108 H (98-107) mmol/L BUN 36 H (7-17) mg/dL Glucose 115 H (74-99) mg/dL Calcium 6.2 L* (8.4-10.2) mg/dL Ionized Calcium Reza (4.5-5.3) mg/dL Crossmatch See Detail 09/08/22 09/08/22 09/08/22 Range/Units 01:00 01:00 01:00 RBC 2.19 L (3.80-5.40) m/uL Hgb 6.7 L* (11.4-16.0) gm/dL Hct 19.0 L* (34.0-46.0) % RDW 19.9 H (11.5-15.5) % Plt Count 43 L (150-450) k/uL Lymphocytes # (Manual) 0.21 L (1.0-4.8) k/uL Metamyelocytes # (Man) 0.04 H (0) k/uL Nucleated RBCs 64 H (0-0) /100 WBC Sodium (137-145) mmol/L Chloride (98-107) mmol/L BUN (7-17) mg/dL Glucose 114 H (74-99) mg/dL Calcium (8.4-10.2) mg/dL Ionized Calcium Reza 4.4 L (4.5-5.3) mg/dL Crossmatch 09/08/22 Range/Units 07:15 RBC 2.31 L (3.80-5.40) m/uL Hgb 7.2 L (11.4-16.0) gm/dL Hct 19.8 L* (34.0-46.0) % RDW 19.3 H (11.5-15.5) % Plt Count 72 L D (150-450) k/uL Lymphocytes # (Manual) (1.0-4.8) k/uL Metamyelocytes # (Man) (0) k/uL Nucleated RBCs (0-0) /100 WBC Sodium (137-145) mmol/L Chloride (98-107) mmol/L BUN (7-17) mg/dL Glucose (74-99) mg/dL Calcium (8.4-10.2) mg/dL Ionized Calcium Reza (4.5-5.3) mg/dL Crossmatch Microbiology - Last 24 Hours (Table) 09/04/22 09:47 Acid Fast Bacilli Smear - Final Bronchial Washings - Left Acid Fast Bacilli Culture - Preliminary 09/04/22 09:47 Gram Stain - Preliminary Bronchial Washings - Left Bronchial Washings Culture - Preliminary Clarissa species, not albicans
--- NOTE | 2022-09-08 12:45 | P.DS ---
Providers Date of admission: 08/25/22 18:56 Expected date of discharge: 09/08/22 Attending physician: Bing Aggarwal DO Consults: 08/25/22 18:56 Consult Physician Routine Consulting Provider: Kizzy Ayala Consult Reason/Comments: Your patient Do you want consulting provider notified?: Yes 08/25/22 22:09 Consult Physician Routine Consulting Provider: Jose Antonio Reed Consult Reason/Comments: afib Do you want consulting provider notified?: Yes, Notify in am 08/26/22 09:20 Consult Physician Routine Consulting Provider: Celio Briceno Consult Reason/Comments: acute on chronic anemia, patient known to your group Do you want consulting provider notified?: Yes 08/26/22 21:21 Consult Physician Routine Consulting Provider: Jaquelin Lipscomb Consult Reason/Comments: gi bleed Do you want consulting provider notified?: Yes 09/01/22 13:33 Consult Physician Routine Consulting Provider: Sai Peralta Consult Reason/Comments: GIB Do you want consulting provider notified?: Already Contacted 09/06/22 07:36 Consult Physician Stat Consulting Provider: Jaquelin Lipscomb Consult Reason/Comments: GI bleed Do you want consulting provider notified?: Yes 09/06/22 07:39 Consult to Palliative Care Routine Consulting Provider: Cyndi Suero Consult Reason/Comments: Goals of care Do you want consulting provider notified?: Yes 09/06/22 08:09 Consult Physician Stat Consulting Provider: Sai Peralta Consult Reason/Comments: GIB Do you want consulting provider notified?: Yes 09/07/22 07:58 Consult Physician Routine Consulting Provider: Tye Loyd Consult Reason/Comments: possible clarissa auris infection Do you want consulting provider notified?: Yes Primary care physician: Saroj Vides MD Hospital Course: #Acute GI bleed, blood loss anemia #Prerenal azotemia likely due to GI bleed #Antibiotic induced colitis #Acute on chronic hypoxic respiratory failure #Septic secondary to left upper lobe pneumonia #History of MDS #Left adrenal nodule, incidental finding Resolved: Sinus tachycardia Hospital Course: 62 year old female with MDS, GI bleed, COPD on 2 L oxygen at home presenting with dyspnea, palpitations, productive cough with occasional hemoptysis, chest pain. Patient was recently hospitalized for pneumonia as well as acute anemia, had a bronchoscopy at that time, patient was eventually discharged on oral antibiotics and prednisone taper. Since presenting to the ED this time, patient has been hypoxic, tachypneic, tachycardic requiring BiPAP for increased work of breathing. Patient was evaluated by pulmonology. Patient was started on IV antibiotics, steroids and bronchodilators for pneumonia as well as COPD exacerbation. CTA chest showed no PE, multifocal airspace disease with moderate emphysema, worsening left upper lobe, also incidental left adrenal nodule. On 08/26, patient had an episode of hypertension and unresponsiveness. Patient was then transferred to the medical ICU. Echocardiogram report reviewed: Mildly impaired LV function with EF 45%, moderate AI. She is now having bloody bowel movements. She was status post 3 units of PRBCs at that point. Surgery was co nsulted. Tagged RBC scan did not show any active GI bleeding. EGD was done 08/30 which was negative for bleed. C-scope was done on 08/31 which showed mild diverticulosis. Small bowel follow-through was also negative for GI bleed. Her hemoglobin has remained stable until 09/04 when her hemoglobin dropped to 6.8 for which she was transfused 1 unit PRBC. She also underwent bronchoscopy with more cultures collected on 09/04. Patient had large amount of melanotic stools overnight on 09/05 in the morning of 09/06. Her hemoglobin had dropped to 5.2 requiring 2 unit of PRBC. An additional unit of PRBC was ordered on 09/06. STAT RBC scan was ordered and showed bleeding source in RLQ. Gastroenterology was also consulted, and reviewed RBC scan and limited study small bowel capsule endoscopy. Discussed case with general surgery and GI, they recommended transfer to tertiary care. Discussed case with [facility] system, they accepted patient for transfer pending insurance auth and bed availability. Reviewed images and personally interpreted CXR on 09/07, MIGUEL and RLL findings appear worse. Reviewed microbiology, growing clarissa spp from sputum and BAL. Started Eraxis, monitoring labs for toxicity. Consulted ID for concern for clarissa auris pneumonia. patient rev'd a total of 11U PRBCs and 2 U Platelets. Order placed for PICC line in left upper arm prior to transfer. I spent 55 minutes coordinating this transfer/discharge on 09/08. Gen: awake, alert HEENT: normocephalic, atraumatic, good hearing acuity, moist mucous membranes Resp: good air exchange, breathing comfortably with no accessory muscle use CVS: good distal perfusion x 4, GI: soft, NTTP, ND : no SPT, no CVAT, genao catheter is present MSK: no pitting edema, no clubbing Neuro: non-focal, moving all extremities Psych: cooperative, euthymic mood Patient Condition at Discharge: Critical Plan - Discharge Summary Discharge Rx Participant: Yes New Discharge Prescriptions: No Action ALPRAZolam [Xanax] 0.25 mg PO BID Cyanocobalamin (Vitamin B-12) [Vitamin B-12] 5,000 mcg PO DAILY Pantoprazole [Protonix] 40 mg PO AC-BID #60 tab Albuterol Inhaler [Ventolin Hfa Inhaler] 1 - 2 puff INHALATION Q6H PRN PRN Reason: Shortness Of Breath Albuterol Nebulized [Ventolin Nebulized] 2.5 mg INHALATION RT-QID Ferrous Sulfate [Slow Fe] 142 mg PO DAILY predniSONE See Taper PO DAILY Ascorbic Acid [Vitamin C] 500 mg PO DAILY Folic Acid 1 mg PO DAILY Tiotropium [place] [Spiriva] 1 puff IH RT-DAILY Discharge Medication List ALPRAZolam [Xanax] 0.25 mg PO BID 07/16/22 [History] Ascorbic Acid [Vitamin C] 500 mg PO DAILY 07/16/22 [History] Cyanocobalamin (Vitamin B-12) [Vitamin B-12] 5,000 mcg PO DAILY 07/16/22 [History] Pantoprazole [Protonix] 40 mg PO AC-BID #60 tab 07/26/22 [Rx] Albuterol Inhaler [Ventolin Hfa Inhaler] 1 - 2 puff INHALATION Q6H PRN 08/16/22 [History] Albuterol Nebulized [Ventolin Nebulized] 2.5 mg INHALATION RT-QID 08/16/22 [History] Folic Acid 1 mg PO DAILY 08/16/22 [History] Ferrous Sulfate [Slow Fe] 142 mg PO DAILY 08/25/22 [History] Tiotropium [place] [Spiriva] 1 puff IH RT-DAILY 08/25/22 [History] predniSONE See Taper PO DAILY 08/25/22 [History] Follow up Appointment(s)/Referral(s): Saroj Vides MD [Primary Care Provider] - 1-2 days [facility], [NON-STAFF] - Toby Pathak MD [STAFF PHYSICIAN] - 09/15/22 3:15 pm
--- NOTE | 2022-09-08 13:13 | P.PN ---
Subjective Progress Note Date: 09/08/22 Principal diagnosis: GI bleed This is a pleasant 62-year-old female with a past medical history of COPD, alcohol abuse, iron deficiency anemia with history of iron transfusions, and MDS who presented to the emergency department on 08/25/2022 for complaints of shortness of breath, weakness and recent fall. Patient was admitted for bilateral lobe pneumonia, dyspnea and thought to have episode of atrial fibrillation who was started on a heparin drip. Following the heparin drip the patient started having maroon-colored bowel movements. The heparin drip was discontinued and general surgery was consulted. She states she's been having dark stool at home but she is on oral iron, she states no maroon-colored stools at home or clots. She is reporting left lower and mid abdominal pain, which she rates a 7 out of 10 and states it is sharp in nature. She does have nausea with no vomiting. Patient's nurse reported that she had 4 large maroon colored bowel movements yesterday evening and one large one this morning with clots. Patient was recently hospitalized in July of this year and was anemic with a positive occult stool. Patient underwent EGD and colonoscopy on 07/19/[address] Love. EGD with findings of hiatal hernia, probably grade B erosive esophagitis, with no active bleeding or old blood noted. Colonoscopy with findings of sigmoid diverticulosis, internal and external grade 3 hemorrhoids, and transverse colon adenoma unable to be retrieved. During this hospitalization patient underwent EGD and 08/30/[address] Peralta with findings of minimal gastritis and hiatal hernia. Colonoscopy was then performed on 08/31/[address] Peralta with findings of mild diverticulosis. On 09/02/2022 patient underwent a small bowel follow-through that reported delayed transit through the bowel, no masses noted. 09/03/2022 patient had a CAT scan of chest abdomen and pelvis without contrast which stated moderate subcutaneous edema with small bilateral pleural effusions and mild peritoneal ascites consistent with presumed desire fluid overload state. Moderate underlying emphysematous this change with persistent peripheral infiltrate in the right lung similar to most recent CT. There are new areas of consolidation with air bronchograms throughout the left upper and lower lobes and lingula. Mild to moderate wall thickening in the left and sigmoid colon could reflect product of uncomplicated colitis versus poor distention. Correlate clinically. No bowel obstruction. Patient also underwent bronchoscopy on 09/04/2022, cultures curren tly pending. Patient currently on vancomycin and meropenem. She is on IV Solu- Medrol, oxygen saturation 88% on 3 L, increased to 5 L with improvement up to 94%. Patient did have a negative C. diff on 09/03/2022 She has received a total of 6 units of blood during this admission. Morning labs WBC 5.2 hemoglobin 8.2 hematocrit 24 platelet count 48,000 range at 1.0 fibrinogen 361 sodium 135 potassium 4.4 BUN 38 creatinine 0.35 glucose 135. 09/07/2022: Patient seen and examined this morning. The patient had multiple maroon colored stools through the night with clots. She had a drop in her h emoglobin down to 6.6 and has received 2 additional units of blood, totaling 9 units this admission. Patient continues to have abdominal discomfort mostly in the lower abdomen. No nausea or vomiting. Repeat hemoglobin this morning 9.0. Patient underwent small bowel capsule endoscopy study that was started yesterday evening. Results currently pending. 09/08/2022: Patient was seen and examined today for follow-up in the ICU for a lower GI bleed. Patient states she's had no bleeding through the night but did have a bowel movement this morning which he does believe was bloody. Repeat hemoglobin 0100 was 6.7 and patient was transfused 2 units of blood. Yesterday patient had a raymundo platelets 2 33,002 units of platelets were transfused. Repeat hemoglobin this morning 7.2, platelet count 72,000. She continues to have some lower abdominal discomfort. Patient has been accepted to [facility] and is awaiting transfer pending insurance authorization. Objective - Vital Signs Vital signs: Vital Signs Temp 97.5 F L 09/08/22 05:30 Pulse 82 09/08/22 07:00 Resp 15 09/08/22 07:00 BP 117/47 09/08/22 05:30 Pulse Ox 94 L 09/08/22 07:00 FiO2 100 09/06/22 12:00 Intake & Output 09/07/22 09/08/22 09/08/22 18:59 06:59 18:59 Intake Total 2045 1895 325 Output Total 680 365 35 Balance 1365 1530 290 Weight 77.3 kg Intake: IV 1325 900 325 0.9% @ 50 75 Fluconazole in NaCl,Iso- 50 Osm 100 mg In Saline 1 50ml.bag @ 50 mls/hr IVPB DAILY [facility] Rx#:[id number] Meropenem 1 gm In Sodium 100 Chloride 0.9% 100 ml @ 33 .3 mls/hr IVPB Q8HR [facility] Rx#:[id number] Sodium Chloride 0.9% 1, 600 900 75 000 ml @ 75 mls/hr IV . [id number] [facility] Rx#:[id number] Vancomycin 1,000 mg In 500 250 Sodium Chloride 0.9% 250 ml @ 125 mls/hr IVPB Q12H [facility] Rx#:[id number] Oral 200 Blood Product 520 995 Platelet Pheresis Pas 260 Psoralen Unit [id number] Platelet Pheresis Pas 375 Psoralen Unit [id number] Rc As-1 Unit 310 [id number] Rc As-1 Unit 310 [id number] Output: Urine 505 365 35 Stool 175 Other: Voiding Method Indwelling Catheter Indwelling Catheter # Bowel Movements 1 1 ABP, PAP, CO, CI - Last Documented Arterial Blood Pressure 107/45 - Exam General appearance: The patient is alert, oriented, appears in no acute distress. HET: Head is normocephalic and atraumatic. Conjunctiva pink. Sclera anicteric. Neck: Supple without lymphadenopathy. Abdomen: Soft, diffuse lower abdominal tenderness, nondistended. No guarding or rigidity. Extremities: Normal skin color and turgor. No pedal edema Skin: No rashes, no jaundice Neurological: No focal deficits. Alert and oriented. - Labs CBC & Chem 7: 09/08/22 07:15 09/08/22 01:00 Labs: Abnormal Lab Results - Last 24 Hours (Table) 09/07/22 09/07/22 09/07/22 Range/Units 05:33 05:33 12:37 RBC 2.50 L (3.80-5.40) m/uL Hgb 7.3 L D (11.4-16.0) gm/dL Hct 20.6 L (34.0-46.0) % RDW 20.0 H (11.5-15.5) % Plt Count 33 L 36 L (150-450) k/uL Lymphocytes # (Manual) (1.0-4.8) k/uL Metamyelocytes # (Man) (0) k/uL Nucleated RBCs (0-0) /100 WBC Sodium (137-145) mmol/L Chloride (98-107) mmol/L BUN (7-17) mg/dL Glucose (74-99) mg/dL Calcium (8.4-10.2) mg/dL Ionized Calcium Reza (4.5-5.3) mg/dL Alkaline Phosphatase 29 L (38-126) U/L Total Protein 3.2 L (6.3-8.2) g/dL Albumin 1.5 L (3.5-5.0) g/dL Crossmatch 09/07/22 09/08/22 09/08/22 Range/Units 17:50 01:00 01:00 RBC (3.80-5.40) m/uL Hgb (11.4-16.0) gm/dL Hct (34.0-46.0) % RDW (11.5-15.5) % Plt Count (150-450) k/uL Lymphocytes # (Manual) (1.0-4.8) k/uL Metamyelocytes # (Man) (0) k/uL Nucleated RBCs (0-0) /100 WBC Sodium 135 L (137-145) mmol/L Chloride 108 H (98-107) mmol/L BUN 36 H (7-17) mg/dL Glucose 115 H (74-99) mg/dL Calcium 6.2 L* (8.4-10.2) mg/dL Ionized Calcium Reza 4.4 L (4.5-5.3) mg/dL Alkaline Phosphatase (38-126) U/L Total Protein (6.3-8.2) g/dL Albumin (3.5-5.0) g/dL Crossmatch See Detail 09/08/22 09/08/22 Range/Units 01:00 01:00 RBC 2.19 L (3.80-5.40) m/uL Hgb 6.7 L* (11.4-16.0) gm/dL Hct 19.0 L* (34.0-46.0) % RDW 19.9 H (11.5-15.5) % Plt Count 43 L (150-450) k/uL Lymphocytes # (Manual) 0.21 L (1.0-4.8) k/uL Metamyelocytes # (Man) 0.04 H (0) k/uL Nucleated RBCs 64 H (0-0) /100 WBC Sodium (137-145) mmol/L Chloride (98-107) mmol/L BUN (7-17) mg/dL Glucose 114 H (74-99) mg/dL Calcium (8.4-10.2) mg/dL Ionized Calcium Reza (4.5-5.3) mg/dL Alkaline Phosphatase (38-126) U/L Total Protein (6.3-8.2) g/dL Albumin (3.5-5.0) g/dL Crossmatch Microbiology - Last 24 Hours (Table) 09/04/22 09:47 Acid Fast Bacilli Smear - Final Bronchial Washings - Left Acid Fast Bacilli Culture - Preliminary 09/04/22 09:47 Gram Stain - Preliminary Bronchial Washings - Left Bronchial Washings Culture - Preliminary Bettina species, not albicans Assessment and Plan (1) GI bleed Narrative/Plan: 62-year-old female who presented to the emergency department greater than a week ago with complaints of shortness of breath weakness and fall. Patient also with diarrhea, nonbloody prior to admission. She was admitted with bilateral lobe pneumonia and started on IV antibiotics. She has a long-standing history of anemia, she has MDS and follows with hematology. She gets IV transfusions in the past and currently on oral iron. During this hospitalization she was treated with IV heparin for atrial fibrillation, following anticoagulation she had complaints of GI bleed. She underwent EGD and colonoscopy with Dr. Peralta with any evidence of old blood or active bleeding noted. Colonoscopy did show mild diverticulosis. She also underwent a tagged RBC on 08/28/2021 without any evidence of active bleed. She continues to have left lower abdominal pain with multiple maroon colored stools between yesterday and today. Unclear etiology of bleeding, possible etiologies include diverticular bleed, possible AVM. Recommend tagged RBC, transfuse 1 unit of blood. Tagged RBC completed showing uptake in the right lower quadrant correlate for GI bleed. This was discussed with Dr. Lipscomb, general surgeon Dr. Peralta notified as well. Consider possible small bowel capsule endoscopy. We'll await further recommendations from general surgery. Small bowel capsule endoscopy completed, no evidence of upper GI bleed, no old blood or active bleeding seen in the first part of the small bowel, however study was incomplete. Likely dealing with a lower GI bleed, source unclear at this time. Recommend to transfer to tertiary center for higher level of care all possible CTA with embolization. This was discussed with general surgeon, Dr. Peralta who is in agreement. Current Visit: Yes Status: Acute Priority: High Code(s): K92.2 - GASTROINTESTINAL HEMORRHAGE, UNSPECIFIED SNOMED Code(s): 28895830 (2) Diarrhea Narrative/Plan: Negative C. diff Current Visit: Yes Status: Acute Code(s): R19.7 - DIARRHEA, UNSPECIFIED SNOMED Code(s): 36108560 (3) Anemia Current Visit: Yes Status: Acute Priority: High Code(s): D64.9 - ANEMIA, UNSPECIFIED SNOMED Code(s): 382266760 (4) Pneumonia Current Visit: Yes Status: Acute Code(s): J18.9 - PNEUMONIA, UNSPECIFIED ORGANISM SNOMED Code(s): 648123874 (5) MDS (myelodysplastic syndrome), low grade Current Visit: Yes Status: Chronic Priority: High Code(s): D46.20 - REFRACTORY ANEMIA WITH EXCESS OF BLASTS, UNSPECIFIED SNOMED Code(s): 056777758 (6) COPD exacerbation Current Visit: No Status: Acute Code(s): J44.1 - CHRONIC OBSTRUCTIVE PULMONARY DISEASE W (ACUTE) EXACERBATION SNOMED Code(s): 364175531 Plan: 1. Continue symptomatic and supportive care 2. Tagged RBC ordered and reviewed. Small bowel capsule study completed and reviewed. No evidence of upper GI bleed. No old blood or active bleeding seen in first part of small bowel. 3. Keep nothing by mouth 4. CBC every 6 hours, transfuse for hemoglobin less than 7 5. Hold any anticoagulation 6. Protonix 40 mg twice a day for GI prophylaxis 7. Continue with recommendations from general surgery 8. Discussed case with Dr. Peralta, agree recommend transfer to tertiary center for higher level of care, possible CT and with embolization. Primary medical team has arranged for transfer to [facility] patient was accepted, awaiting insurance authorization. Thank you for this consultation, we will continue to follow. Dr. Geoffrey Lipscomb I agree with the dictator's note, documented as a scribe by Nora De La O.
== END 2022-09-08 13:09 | DRG 720 ==
LOC: EC 14:40 → 3SCARD 18:56 → 2SICU 08-26 12:19
PROVIDERS: ADMIT Internal Medicine; ATTEND Internal Medicine
PROC: 5A09357 Assistance with Respiratory Ventilation, Less than 24 Consecutive Hours, Continuous Positive Airway Pressure (ICD-10-PCS; principal; 2022-08-26 08:30)
PROC: 30233N1 Transfusion of Nonautologous Red Blood Cells into Peripheral Vein, Percutaneous Approach (ICD-10-PCS; 2022-08-26 08:30)
PROC: 05HC33Z Insertion of Infusion Device into Left Basilic Vein, Percutaneous Approach (ICD-10-PCS; 2022-08-27)
PROC: 0DB78ZX Excision of Stomach, Pylorus, Via Natural or Artificial Opening Endoscopic, Diagnostic (ICD-10-PCS; 2022-08-30)
PROC: 0DJD8ZZ Inspection of Lower Intestinal Tract, Via Natural or Artificial Opening Endoscopic (ICD-10-PCS; 2022-08-31)
PROC: 0B9G8ZX Drainage of Left Upper Lung Lobe, Via Natural or Artificial Opening Endoscopic, Diagnostic (ICD-10-PCS; 2022-09-04)
PROC: 30233R1 Transfusion of Nonautologous Platelets into Peripheral Vein, Percutaneous Approach (ICD-10-PCS; 2022-09-07)
PROC: 0DJ07ZZ Inspection of Upper Intestinal Tract, Via Natural or Artificial Opening (ICD-10-PCS; 2022-09-07)
PROC: 6A551Z2 Pheresis of Platelets, Multiple (ICD-10-PCS; 2022-09-07)
DX: B37.7 Candidal sepsis (principal); J96.21 Acute and chronic respiratory failure with hypoxia; R65.21 Severe sepsis with septic shock; I50.23 Acute on chronic systolic (congestive) heart failure; D84.9 Immunodeficiency, unspecified; K22.11 Ulcer of esophagus with bleeding; K29.51 Unspecified chronic gastritis with bleeding; K57.11 Diverticulosis of small intestine without perforation or abscess with bleeding; N17.9 Acute kidney failure, unspecified; E87.20 Acidosis, unspecified; D69.6 Thrombocytopenia, unspecified; E27.8 Other specified disorders of adrenal gland; R18.8 Other ascites; E83.51 Hypocalcemia; K52.1 Toxic gastroenteritis and colitis; D46.20 Refractory anemia with excess of blasts, unspecified; D62 Acute posthemorrhagic anemia; I47.1 Supraventricular tachycardia; R04.2 Hemoptysis; J43.2 Centrilobular emphysema; I11.0 Hypertensive heart disease with heart failure; J84.9 Interstitial pulmonary disease, unspecified; Z99.81 Dependence on supplemental oxygen; F10.10 Alcohol abuse, uncomplicated; F32.A Depression, unspecified; D53.9 Nutritional anemia, unspecified; I08.3 Combined rheumatic disorders of mitral, aortic and tricuspid valves; I48.91 Unspecified atrial fibrillation; D35.02 Benign neoplasm of left adrenal gland; R30.0 Dysuria; E86.0 Dehydration; B37.1 Pulmonary candidiasis; K44.9 Diaphragmatic hernia without obstruction or gangrene; K92.1 Melena; K57.30 Diverticulosis of large intestine without perforation or abscess without bleeding; K64.2 Third degree hemorrhoids; D12.3 Benign neoplasm of transverse colon; F41.9 Anxiety disorder, unspecified; T36.95XA Adverse effect of unspecified systemic antibiotic, initial encounter; W19.XXXA Unspecified fall, initial encounter; Z20.822 Contact with and (suspected) exposure to COVID-19; Y92.009 Unspecified place in unspecified non-institutional (private) residence as the place of occurrence of the external cause; Z87.891 Personal history of nicotine dependence; Z87.19 Personal history of other diseases of the digestive system; Z88.8 Allergy status to other drugs, medicaments and biological substances; Z87.01 Personal history of pneumonia (recurrent); Z79.899 Other long term (current) drug therapy; Z28.311 Partially vaccinated for COVID-19
CPT/HCPCS: 31624; 36410; 36415; 36600; 43239; 45378; 70450; 71045; 71250; 71275; 74176; 74250; 76937; 78278; 80048; 80053; 80076; 80202; 81001; 82272; 82330; 82565; 82728; 82805; 82947; 83540; 83550; 83605; 83735; 83880; 84145; 84484; 85025; 85027; 85379; 85384; 85610; 85730; 86022; 86850; 86900; 86901; 86920; 87040; 87070; 87102; 87116; 87205; 87206; 87252; 87324; 87449; 87635; 87636; 88305; 91110; 93005; 93306; 94640; 94660; 94760; 96361; 96365; 96366; 96367; 96368; 99291